=== PATIENT | female | born 1975 | race Caucasian/White ===

== ENCOUNTER 2019-04-05 15:09 | Emergency (ER) | payer SELFPAY | END 2019-04-05 15:50 | disposition left against medical advice (07) | LOC: ER 15:42 | PROVIDERS: Emergency Provider Nurse Practitioner Family; Family Provider Nurse Practitioner; PCP Nurse Practitioner | DX: Z53.21 Procedure and treatment not carried out due to patient leaving prior to being seen by health care provider (principal) | CPT/HCPCS: 87804; 99281 ==

== ENCOUNTER 2019-10-21 15:03 | Inpatient (IN) | payer SELFPAY ==
[2019-10-21 15:18] VITALS: BP 212/129; PULSE 87; RESP 18; TEMP 36.9; O2SAT 98; BMI 26.5
--- NOTE | 2019-10-21 15:29 | ECG_ITS ---
[facility] Test Date: 2019-10-21 Pat Name: Leann Monte Department: Room: Gender: Female [employer]: : [id number] Requested By: Mesfin Basurto Order Number: [id number] Nelly MD: Ella Ozuna M.D. Measurements Intervals [place] Rate: 83 P: 65 PA: 137 QRS: 53 QRSD: 94 T: 228 QT: 393 QTc: 462 Interpretive Statements SINUS RHYTHM POSSIBLE LEFT ATRIAL ENLARGEMENT [-0.1mV P WAVE IN V1/V2] ST DEVIATION AND MODERATE T-WAVE ABNORMALITY, CONSIDER ANTEROLATERAL ISCHEMIA [-0.1+ mV T WAVE IN V3-V6] ST DEVIATION AND MODERATE T-WAVE ABNORMALITY, CONSIDER INFERIOR ISCHEMIA [-0.1+ mV T WAVE IN II/aVF] Compared to ECG 12/16/2018 19:38:38 Possible ischemia now present Short PA interval no longer present T-wave abnormality still present Electronically Signed On 10-22-2019 18:10:42 CDT by Ella Ozuna M.D. [email or web address]
--- NOTE | 2019-10-21 15:29 | XRR_ITS ---
PROCEDURE INFORMATION: Exam: XR Chest, 1 View Exam date and time: 10/21/2019 3:30 PM Age: 44 years old Clinical indication: Chest pain; Type not specified; Additional info: Cp TECHNIQUE: Imaging protocol: XR of the chest Views: 1 view. COMPARISON: CR Chest 2 views* [id number] 12/19/2013 11:38 AM FINDINGS: Lungs: There is new/increased interstitial prominence compatible with bronchitis, viral pneumonitis or mild interstitial edema. No lobar consolidation. Pleural space: Unremarkable. No pleural effusion. No pneumothorax. Heart/Mediastinum: There is borderline cardiomegaly. Bones/joints: No acute abnormality. XR/XR chest 1V portable [id number] IMPRESSION: There is new/increased interstitial prominence compatible with bronchitis, viral pneumonitis or mild interstitial edema.
[2019-10-21 16:01] LABS: Basophils # 0.1 10^3/uL (0.0-0.1); Basophils % 0.5 %; Eosinophils # 0.4 10^3/uL (0.0-0.8); Eosinophils % 4.4 %; Hematocrit 42.5 % (37.0-47.0); Hemoglobin 14.5 g/dL (11.5-15.3); Lymphocytes % 32.7 %; Mean Corpuscular HGB Conc 34.1 g/dL (30.0-36.0); Mean Corpuscular Hemoglobin 31.7 pg (28.0-34.0); Mean Platelet Volume 8.8 fL (7.4-10.4); Monocytes # 0.6 10^3/uL (0.2-0.9); Neutrophils # 5.13 10^3/uL (1.8-7.7); Neutrophils % 56.3 %; Nucleated Red Blood Cells % 0 %; Platelet Count 327 10^3/cmm (130-400); Red Blood Count 4.57 10^6/uL (4.1-5.3); Red Cell Distribution Width 13.8 % (12.1-15.1); White Blood Count 9.1 10^3/uL (4.0-10.0)
--- NOTE | 2019-10-21 16:11 | W.ED.CHESTPA ---
Documented by User: Mesfin Garcia DO 10/24/19 06:09 HPI - Chest Pain General: Chief Complaint: Chest Pain Stated Complaint: cp, arm numbness, mouth tingling Time Seen by Provider: 10/21/19 16:10 History of Present Illness: HPI narrative: 44-year-old female comes in she is complaining of tingling around her mouth and all of her extremities little bit worse on the left she also had some slight chest discomfort not had any cough or shortness of breath the the symptoms are not affected by inspiration. She not had any fever sweats or chills MD complaint: chest heaviness Onset (ago): hour(s) Timing of current episode: episodic Onset: during rest Pain location: left chest Pain radiation: left arm Severity: mild Quality: heaviness Relieving factors: rest Exacerbating factors: stress Associated symptoms: Reports dyspnea, palpitations and sense of impending doom; Deny abdominal pain, fever(s), nausea or vomiting Review of Systems Const: Denies: fever(s), chills, body aches, change in appetite, fatigue or malaise ENMT: Denies: throat pain, ear or mastoid pain, nasal discharge or nasal congestion Card: Reports: palpitations Resp: Reports: dyspnea GI: Denies: abdominal pain, nausea, vomiting, hematemesis, coffee ground emesis, diarrhea, constipation, bloating, hematochezia or melena : Denies: flank pain, difficulty voiding, dysuria, urinary frequency or urinary urgency Skin/Breast: Denies: rash or pruritus PFSH ED PFSH: Medical History Generalized anxiety disorder 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 Hx of nephrolithotomy with removal of calculi Hypertension Hypertensive crisis Major depressive disorder, recurrent, moderate Post-traumatic stress disorder, chronic Surgical History History of removal of ovarian cyst Hx of cholecystectomy Hx of hernia repair Hx of lithotripsy Family History Other Psychiatric illness Social History Smoking and tobacco status: current every day smoker cigarettes Years cigarettes smoked: 25 Number of cigarettes per day: 11-20 Quit status (tobacco): has tried quititng Number of times tried to quit tobacco: 5 Second hand smoke exposure: No Additional social history: Denies regular alcohol use Denies current drug use Physical Exam Const: COMMON NORMALS: no acute distress GENERAL APPEARANCE: cooperative and comfortable ORIENTATION/CONSCIOUSNESS: Yes awake, Yes oriented to person, Yes oriented to place and Yes oriented to time HENMT: COMMON NORMALS: normocephalic, atraumatic and hearing grossly normal bilaterally HEAD & SCALP: normocephalic and atraumatic Eye: COMMON NORMALS: Equal, round and reactive pupils present, EOMs intact bilaterally, conjunctivae normal and no scleral icterus CONJUNCTIVA: Yes conjunctivae normal PUPIL: Yes Equal, round and reactive pupils present Neck/C-Spine: COMMON NORMALS: full ROM, no lymphadenopathy, supple and no JVD Lymph: LYMPHATIC: no lymphadenopathy noted and no lymphedema noted Resp: COMMON NORMALS: normal respiratory effort, No retractions, No use of accessory muscles and clear to auscultation bilaterally AUSCULTATION: clear to auscultation bilaterally Cardio: COMMON NORMALS: no JVD, regular rate, regular rhythm and No murmurs present (Cardio) RATE: regular rate RHYTHM: regular rhythm GI: COMMON NORMALS: Soft to palpation and No hepatosplenomegaly present AUSCULTATION: Yes normoactive bowel sounds PALPATION: Yes Soft to palpation, No Tenderness to palpation present (GI), No Guarding due to palpation present (GI) and Yes No hepatosplenomegaly present Extremity: COMMON NORMALS: normal to inspection, capillary refill normal, no clubbing, cyanosis or edema, no calf tenderness and no pedal edema Neuro: SENSORIUM/ORIENTATION: Yes oriented to person, Yes oriented to place and Yes oriented to time Skin: COMMON NORMALS: no rashes or lesions noted GENERAL SKIN EXAM: no rashes or lesions noted Course Vital Signs: Vital signs: Vital Signs Temperature 98.6 F 10/23/19 12:25 Pulse Rate 70 10/23/19 13:43 Respiratory Rate 18 10/23/19 13:43 Blood Pressure 164/93 10/23/19 13:43 Pulse Oximetry 98 10/23/19 13:43 MDM - Chest Pain MDM Narrative: Medical decision making narrative: Hypertensive crisis with a very low stroke score. Patient care transferred to Dr. Deutsch at change of shift see his notes for final diagnosis and disposition Lab Data: Labs: Lab Results 10/21/19 10/21/19 10/21/19 Range/Units 15:58 15:58 15:58 WBC 9.1 (4.0-10.0) 10^3/ uL RBC 4.57 (4.1-5.3) 10^6/u L Hgb 14.5 (11.5-15.3) g/dL Hct 42.5 (37.0-47.0) % MCV 93.0 (81-99) fL MCH 31.7 (28.0-34.0) pg MCHC 34.1 (30.0-36.0) g/dL RDW 13.8 (12.1-15.1) % Plt Count 327 (130-400) 10^3/c mm MPV 8.8 (7.4-10.4) fL Neut % (Auto) 56.3 % Lymph % (Auto) 32.7 % [place] % (Auto) 6.0 % Eos % (Auto) 4.4 % Baso % (Auto) 0.5 % Neut # (Auto) 5.13 (1.8-7.7) 10^3/u L Lymph # (Auto) 3.0 (0.8-4.8) 10^3/u L [place] # (Auto) 0.6 (0.2-0.9) 10^3/u L Eos # (Auto) 0.4 (0.0-0.8) 10^3/u L Baso # (Auto) 0.1 (0.0-0.1) 10^3/u L Nucleated RBC % (a uto) 0 % Nucleated RBCs # 0.0 /100WBC APTT 33.4 (23.9-36.7) SECO NDS D-Dimer <= 0.27 (0-0.59) ug/mIFE U Specimen Type Sample Site ABG pH (7.35-7.45) ABG pCO2 (35-45) mmHg ABG pO2 (80.0-100.0) mmH g ABG HCO3 (22-26) mmol/L ABG O2 Saturation ABG Base Excess (-2.0-2.0) mmol/ L Jamal Test A-a O2 Gradient (5-10) mmHg Hematocrit (37-47) % Hgb O2 Saturation (95-100) % Carboxyhemoglobin (0.4-20.1) %THgb Methemoglobin (0.4-1.5) % Total Hemoglobin (12-16) g/dL Ionized Calcium (1.1-1.4) mmol/L O2 Delivery Device FiO2 % Investigation Lieutenant ID Sodium 139 (136-145) mmol/L Potassium 2.4 L* (3.5-5.1) mmol/L Chloride 99 (98-107) mmol/L Carbon Dioxide 27 (22-29) mmol/L Anion Gap 15.4 (5-19) BUN 10 (6-20) mg/dL Creatinine 0.8 (0.5-0.9) mg/dL GFR Calculation 77.9 L (90-130) mL/min Glucose 99 (65-115) mg/dL Calculated Osmolal ity 284 L (285-295) mOsm/k g Calcium 8.5 (8.5-10.5) mg/dL Magnesium (1.7-2.3) mg/dL Total Bilirubin 0.4 (0.15-1.2) mg/dL AST 12 (0-32) U/L ALT 11 (0-33) U/L Alkaline Phosphata se 81 (35-105) IU/L Troponin T Gen 5 n g/L (0-10) ng/L Troponin T Baselin e (0-10) ng/L Troponin T 120 Min [place] (0-10) ng/L Delta Troponin T (0-10) ABS# Troponin T Hi Sens 6Hr Troponin T Hi Sens 6Hr Delta NT-Pro-B Natriuret Pep 1376 H (0-125) pg/mL Total Protein 7.0 (6.6-8.7) g/dL Albumin 4.0 (3.5-5.2) g/dL Globulin 3.0 (1.3-4.6) g/dL Lipase 20 (13-60) U/L Urine Color (Yellow) Urine Appearance (CLEAR) Urine pH (5-7) Ur Specific Gravit y (1.005-1.030) Urine Protein (Negative) Urine Glucose (UA) (Normal) Urine Ketones (Negative) Urine Blood (Negative) Urine Nitrate (Negative) Urine Bilirubin (NEGATIVE) Urine Urobilinogen (Negative) mg/dL Ur Leukocyte Jazzy ase (Negative) Urine RBC (0-2) /hpf Urine WBC (0-5) /hpf Ur Squamous Epith Cells (0-5) Amorphous Sediment Urine Bacteria (NONE) Urine Opiates Scre en (Negative) ng/mL Ur Barbiturates Sc reen (Negative) ng/mL Ur Phencyclidine S crn (Negative) ng/mL Ur Amphetamines Sc reen (Negative) ng/mL U Benzodiazepines Scrn (Negative) ng/mL Urine Cocaine Scre en (Negative) ng/mL U Marijuana (THC) Screen (Negative) ng/mL 10/21/19 10/21/19 10/21/19 Range/Units 15:58 15:58 16:31 WBC (4.0-10.0) 10^3/ uL RBC (4.1-5.3) 10^6/u L Hgb (11.5-15.3) g/dL Hct (37.0-47.0) % MCV (81-99) fL MCH (28.0-34.0) pg MCHC (30.0-36.0) g/dL RDW (12.1-15.1) % Plt Count (130-400) 10^3/c mm MPV (7.4-10.4) fL Neut % (Auto) % Lymph % (Auto) % [place] % (Auto) % Eos % (Auto) % Baso % (Auto) % Neut # (Auto) (1.8-7.7) 10^3/u L Lymph # (Auto) (0.8-4.8) 10^3/u L [place] # (Auto) (0.2-0.9) 10^3/u L Eos # (Auto) (0.0-0.8) 10^3/u L Baso # (Auto) (0.0-0.1) 10^3/u L Nucleated RBC % (a uto) % Nucleated RBCs # /100WBC APTT (23.9-36.7) SECO NDS D-Dimer (0-0.59) ug/mIFE U Specimen Type Arterial Sample Site Brachial, left ABG pH 7.52 H (7.35-7.45) ABG pCO2 38.9 (35-45) mmHg ABG pO2 65.2 L (80.0-100.0) mmH g ABG HCO3 31.7 H (22-26) mmol/L ABG O2 Saturation 95.3 ABG Base Excess 8.2 H (-2.0-2.0) mmol/ L Jamal Test N/a A-a O2 Gradient 4.6 L (5-10) mmHg Hematocrit 44.6 (37-47) % Hgb O2 Saturation 88.9 L (95-100) % Carboxyhemoglobin 6.4 (0.4-20.1) %THgb Methemoglobin 0.3 L (0.4-1.5) % Total Hemoglobin 14.6 (12-16) g/dL Ionized Calcium 1.1 (1.1-1.4) mmol/L O2 Delivery Device Room air FiO2 21.0 % Investigation Lieutenant ID glc Sodium 142.0 (136-145) mmol/L Potassium 2.3 L (3.5-5.1) mmol/L Chloride (98-107) mmol/L Carbon Dioxide (22-29) mmol/L Anion Gap (5-19) BUN (6-20) mg/dL Creatinine (0.5-0.9) mg/dL GFR Calculation (90-130) mL/min Glucose 101.0 (65-115) mg/dL Calculated Osmolal ity (285-295) mOsm/k g Calcium (8.5-10.5) mg/dL Magnesium 2.0 (1.7-2.3) mg/dL Total Bilirubin (0.15-1.2) mg/dL AST (0-32) U/L ALT (0-33) U/L Alkaline Phosphata se (35-105) IU/L Troponin T Gen 5 n g/L (0-10) ng/L Troponin T Baselin e 7 (0-10) ng/L Troponin T 120 Min [place] (0-10) ng/L Delta Troponin T (0-10) ABS# Troponin T Hi Sens 6Hr Troponin T Hi Sens 6Hr Delta NT-Pro-B Natriuret Pep (0-125) pg/mL Total Protein (6.6-8.7) g/dL Albumin (3.5-5.2) g/dL Globulin (1.3-4.6) g/dL Lipase (13-60) U/L Urine Color (Yellow) Urine Appearance (CLEAR) Urine pH (5-7) Ur Specific Gravit y (1.005-1.030) Urine Protein (Negative) Urine Glucose (UA) (Normal) Urine Ketones (Negative) Urine Blood (Negative) Urine Nitrate (Negative) Urine Bilirubin (NEGATIVE) Urine Urobilinogen (Negative) mg/dL Ur Leukocyte Jazzy ase (Negative) Urine RBC (0-2) /hpf Urine WBC (0-5) /hpf Ur Squamous Epith Cells (0-5) Amorphous Sediment Urine Bacteria (NONE) Urine Opiates Scre en (Negative) ng/mL Ur Barbiturates Sc reen (Negative) ng/mL Ur Phencyclidine S crn (Negative) ng/mL Ur Amphetamines Sc reen (Negative) ng/mL U Benzodiazepines Scrn (Negative) ng/mL Urine Cocaine Scre en (Negative) ng/mL U Marijuana (THC) Screen (Negative) ng/mL 10/21/19 10/21/19 10/21/19 Range/Units 18:28 18:28 21:50 WBC (4.0-10.0) 10^3/ uL RBC (4.1-5.3) 10^6/u L Hgb (11.5-15.3) g/dL Hct (37.0-47.0) % MCV (81-99) fL MCH (28.0-34.0) pg MCHC (30.0-36.0) g/dL RDW (12.1-15.1) % Plt Count (130-400) 10^3/c mm MPV (7.4-10.4) fL Neut % (Auto) % Lymph % (Auto) % [place] % (Auto) % Eos % (Auto) % Baso % (Auto) % Neut # (Auto) (1.8-7.7) 10^3/u L Lymph # (Auto) (0.8-4.8) 10^3/u L [place] # (Auto) (0.2-0.9) 10^3/u L Eos # (Auto) (0.0-0.8) 10^3/u L Baso # (Auto) (0.0-0.1) 10^3/u L Nucleated RBC % (a uto) % Nucleated RBCs # /100WBC APTT (23.9-36.7) SECO NDS D-Dimer (0-0.59) ug/mIFE U Specimen Type Sample Site ABG pH (7.35-7.45) ABG pCO2 (35-45) mmHg ABG pO2 (80.0-100.0) mmH g ABG HCO3 (22-26) mmol/L ABG O2 Saturation ABG Base Excess (-2.0-2.0) mmol/ L Jamal Test A-a O2 Gradient (5-10) mmHg Hematocrit (37-47) % Hgb O2 Saturation (95-100) % Carboxyhemoglobin (0.4-20.1) %THgb Methemoglobin (0.4-1.5) % Total Hemoglobin (12-16) g/dL Ionized Calcium (1.1-1.4) mmol/L O2 Delivery Device FiO2 % Investigation Lieutenant ID Sodium (136-145) mmol/L Potassium 3.1 L (3.5-5.1) mmol/L Chloride (98-107) mmol/L Carbon Dioxide (22-29) mmol/L Anion Gap (5-19) BUN (6-20) mg/dL Creatinine (0.5-0.9) mg/dL GFR Calculation (90-130) mL/min Glucose (65-115) mg/dL Calculated Osmolal ity (285-295) mOsm/k g Calcium (8.5-10.5) mg/dL Magnesium (1.7-2.3) mg/dL Total Bilirubin (0.15-1.2) mg/dL AST (0-32) U/L ALT (0-33) U/L Alkaline Phosphata se (35-105) IU/L Troponin T Gen 5 n g/L (0-10) ng/L Troponin T Baselin e (0-10) ng/L Troponin T 120 Min [place] 8.32 (0-10) ng/L Delta Troponin T 1.32 (0-10) ABS# Troponin T Hi Sens 6Hr Cancelled Troponin T Hi Sens 6Hr Delta Cancelled NT-Pro-B Natriuret Pep (0-125) pg/mL Total Protein (6.6-8.7) g/dL Albumin (3.5-5.2) g/dL Globulin (1.3-4.6) g/dL Lipase (13-60) U/L Urine Color (Yellow) Urine Appearance (CLEAR) Urine pH (5-7) Ur Specific Gravit y (1.005-1.030) Urine Protein (Negative) Urine Glucose (UA) (Normal) Urine Ketones (Negative) Urine Blood (Negative) Urine Nitrate (Negative) Urine Bilirubin (NEGATIVE) Urine Urobilinogen (Negative) mg/dL Ur Leukocyte Jazzy ase (Negative) Urine RBC (0-2) /hpf Urine WBC (0-5) /hpf Ur Squamous Epith Cells (0-5) Amorphous Sediment Urine Bacteria (NONE) Urine Opiates Scre en (Negative) ng/mL Ur Barbiturates Sc reen (Negative) ng/mL Ur Phencyclidine S crn (Negative) ng/mL Ur Amphetamines Sc reen (Negative) ng/mL U Benzodiazepines Scrn (Negative) ng/mL Urine Cocaine Scre en (Negative) ng/mL U Marijuana (THC) Screen (Negative) ng/mL 10/21/19 10/21/19 10/22/19 Range/Units 23:48 23:48 01:25 WBC (4.0-10.0) 10^3/ uL RBC (4.1-5.3) 10^6/u L Hgb (11.5-15.3) g/dL Hct (37.0-47.0) % MCV (81-99) fL MCH (28.0-34.0) pg MCHC (30.0-36.0) g/dL RDW (12.1-15.1) % Plt Count (130-400) 10^3/c mm MPV (7.4-10.4) fL Neut % (Auto) % Lymph % (Auto) % [place] % (Auto) % Eos % (Auto) % Baso % (Auto) % Neut # (Auto) (1.8-7.7) 10^3/u L Lymph # (Auto) (0.8-4.8) 10^3/u L [place] # (Auto) (0.2-0.9) 10^3/u L Eos # (Auto) (0.0-0.8) 10^3/u L Baso # (Auto) (0.0-0.1) 10^3/u L Nucleated RBC % (a uto) % Nucleated RBCs # /100WBC APTT (23.9-36.7) SECO NDS D-Dimer (0-0.59) ug/mIFE U Specimen Type Sample Site ABG pH (7.35-7.45) ABG pCO2 (35-45) mmHg ABG pO2 (80.0-100.0) mmH g ABG HCO3 (22-26) mmol/L ABG O2 Saturation ABG Base Excess (-2.0-2.0) mmol/ L Jamal Test A-a O2 Gradient (5-10) mmHg Hematocrit (37-47) % Hgb O2 Saturation (95-100) % Carboxyhemoglobin (0.4-20.1) %THgb Methemoglobin (0.4-1.5) % Total Hemoglobin (12-16) g/dL Ionized Calcium (1.1-1.4) mmol/L O2 Delivery Device FiO2 % Investigation Lieutenant ID Sodium (136-145) mmol/L Potassium (3.5-5.1) mmol/L Chloride (98-107) mmol/L Carbon Dioxide (22-29) mmol/L Anion Gap (5-19) BUN (6-20) mg/dL Creatinine (0.5-0.9) mg/dL GFR Calculation (90-130) mL/min Glucose (65-115) mg/dL Calculated Osmolal ity (285-295) mOsm/k g Calcium (8.5-10.5) mg/dL Magnesium (1.7-2.3) mg/dL Total Bilirubin (0.15-1.2) mg/dL AST (0-32) U/L ALT (0-33) U/L Alkaline Phosphata se (35-105) IU/L Troponin T Gen 5 n g/L 6 (0-10) ng/L Troponin T Baselin e (0-10) ng/L Troponin T 120 Min [place] Cancelled (0-10) ng/L Delta Troponin T Cancelled (0-10) ABS# Troponin T Hi Sens 6Hr Troponin T Hi Sens 6Hr Delta NT-Pro-B Natriuret Pep (0-125) pg/mL Total Protein (6.6-8.7) g/dL Albumin (3.5-5.2) g/dL Globulin (1.3-4.6) g/dL Lipase (13-60) U/L Urine Color (Yellow) Urine Appearance (CLEAR) Urine pH (5-7) Ur Specific Gravit y (1.005-1.030) Urine Protein (Negative) Urine Glucose (UA) (Normal) Urine Ketones (Negative) Urine Blood (Negative) Urine Nitrate (Negative) Urine Bilirubin (NEGATIVE) Urine Urobilinogen (Negative) mg/dL Ur Leukocyte Jazzy ase (Negative) Urine RBC (0-2) /hpf Urine WBC (0-5) /hpf Ur Squamous Epith Cells (0-5) Amorphous Sediment Urine Bacteria (NONE) Urine Opiates Scre en Negative (Negative) ng/mL Ur Barbiturates Sc reen Negative (Negative) ng/mL Ur Phencyclidine S crn Negative (Negative) ng/mL Ur Amphetamines Sc reen Negative (Negative) ng/mL U Benzodiazepines Scrn Positive H (Negative) ng/mL Urine Cocaine Scre en Negative (Negative) ng/mL U Marijuana (THC) Screen Positive H (Negative) ng/mL 10/22/19 Range/Units 01:25 WBC (4.0-10.0) 10^3/ uL RBC (4.1-5.3) 10^6/u L Hgb (11.5-15.3) g/dL Hct (37.0-47.0) % MCV (81-99) fL MCH (28.0-34.0) pg MCHC (30.0-36.0) g/dL RDW (12.1-15.1) % Plt Count (130-400) 10^3/c mm MPV (7.4-10.4) fL Neut % (Auto) % Lymph % (Auto) % [place] % (Auto) % Eos % (Auto) % Baso % (Auto) % Neut # (Auto) (1.8-7.7) 10^3/u L Lymph # (Auto) (0.8-4.8) 10^3/u L [place] # (Auto) (0.2-0.9) 10^3/u L Eos # (Auto) (0.0-0.8) 10^3/u L Baso # (Auto) (0.0-0.1) 10^3/u L Nucleated RBC % (a uto) % Nucleated RBCs # /100WBC APTT (23.9-36.7) SECO NDS D-Dimer (0-0.59) ug/mIFE U Specimen Type Sample Site ABG pH (7.35-7.45) ABG pCO2 (35-45) mmHg ABG pO2 (80.0-100.0) mmH g ABG HCO3 (22-26) mmol/L ABG O2 Saturation ABG Base Excess (-2.0-2.0) mmol/ L Jamal Test A-a O2 Gradient (5-10) mmHg Hematocrit (37-47) % Hgb O2 Saturation (95-100) % Carboxyhemoglobin (0.4-20.1) %THgb Methemoglobin (0.4-1.5) % Total Hemoglobin (12-16) g/dL Ionized Calcium (1.1-1.4) mmol/L O2 Delivery Device FiO2 % Investigation Lieutenant ID Sodium (136-145) mmol/L Potassium (3.5-5.1) mmol/L Chloride (98-107) mmol/L Carbon Dioxide (22-29) mmol/L Anion Gap (5-19) BUN (6-20) mg/dL Creatinine (0.5-0.9) mg/dL GFR Calculation (90-130) mL/min Glucose (65-115) mg/dL Calculated Osmolal ity (285-295) mOsm/k g Calcium (8.5-10.5) mg/dL Magnesium (1.7-2.3) mg/dL Total Bilirubin (0.15-1.2) mg/dL AST (0-32) U/L ALT (0-33) U/L Alkaline Phosphata se (35-105) IU/L Troponin T Gen 5 n g/L (0-10) ng/L Troponin T Baselin e (0-10) ng/L Troponin T 120 Min [place] (0-10) ng/L Delta Troponin T (0-10) ABS# Troponin T Hi Sens 6Hr Troponin T Hi Sens 6Hr Delta NT-Pro-B Natriuret Pep (0-125) pg/mL Total Protein (6.6-8.7) g/dL Albumin (3.5-5.2) g/dL Globulin (1.3-4.6) g/dL Lipase (13-60) U/L Urine Color Yellow (Yellow) Urine Appearance Sl cloudy A (CLEAR) Urine pH 8 H (5-7) Ur Specific Gravit y 1.010 (1.005-1.030) Urine Protein Neg (Negative) Urine Glucose (UA) Norm (Normal) Urine Ketones 1+ H (Negative) Urine Blood Neg (Negative) Urine Nitrate Negative (Negative) Urine Bilirubin Neg (NEGATIVE) Urine Urobilinogen Norm (Negative) mg/dL Ur Leukocyte Jazzy ase Negative (Negative) Urine RBC None (0-2) /hpf Urine WBC None (0-5) /hpf Ur Squamous Epith Cells 5-10 H (0-5) Amorphous Sediment Trace Urine Bacteria Trace (NONE) Urine Opiates Scre en (Negative) ng/mL Ur Barbiturates Sc reen (Negative) ng/mL Ur Phencyclidine S crn (Negative) ng/mL Ur Amphetamines Sc reen (Negative) ng/mL U Benzodiazepines Scrn (Negative) ng/mL Urine Cocaine Scre en (Negative) ng/mL U Marijuana (THC) Screen (Negative) ng/mL Discharge Plan Discharge Patient Disposition: Admitted As Inpatient Admit Provider: Octavia Mendiola Clinical Impression: Hypertensive crisis Condition: Stable Referrals: [facility] [Other] - 4-7 days Glen Mcfadden MD [Referring] - 2 weeks (HTN) Discharge Diet: Cardiac Discharge Activity: Increase activity as tolerated Patient Instructions: Lisinopril (By mouth), Albuterol (By breathing), Amlodipine (By mouth), Atorvastatin (By mouth) Additional Instructions: Please measure your blood pressure at home 3 times daily, record values. If blood pressure is elevated despite taking your scheduled medications, take a dose of 10 mg amlodipine if blood pressure is more than 180 systolic or more than 100 diastolic. If blood pressure remains persistently high, above 180/100, despite taking medications, please seek medical attention without delay. Please bring your blood pressure log to your primary care provider. Please see your primary care provider within a week, and have them follow-up with your potassium level. Referral is given to a kidney/blood pressure specialist for additional assessment due to high blood pressures and low potassium. As you are aware clonidine can cause rebound hypertension (very elevated blood pressure, higher than usual hypertension) if it is rapidly discontinued. If you may have difficulties obtaining this medication, it may be better to use something else group home if there is a risk of running out of the medicine. If there is this risk, please work with your primary care doctor to taper off clonidine and switch to something else. Discharge Date/Time: 10/22/19 04:23 Coding Level of Care Code ED [employer] Department Manager for [place] Fwd Exam Comprehensive NIH stroke score NIHSS Level Of Consciousness - 1a: 0 Level Of Consciousness Questions - 1b: Both Correct Level Of Consciousness Commands - 1c: Both Correct Best Gaze - 2: Normal Visual Webb - 3: No Visual Loss Facial Palsy - 4: Normal Motor Arm Right - 5: No Drift Motor Arm Left - 5: No Drift Motor Leg Right - 6: No Drift Motor Leg Left - 6: No Drift Limb Ataxia - 7: Absent Sensory - 8: Mild To Moderate Loss Best Language - 9: No Aphasia Dysarthia - 10: Normal Extinction And Inattention - 11: 0 Score Total Score: 1 Documented by User: Paul Deutsch DO 10/22/19 04:37 HPI - Chest Pain General: Chief Complaint: Chest Pain Stated Complaint: cp, arm numbness, mouth tingling Time Seen by Provider: 10/21/19 16:10 PFSH ED PFSH: Medical History Generalized anxiety disorder 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 Hx of nephrolithotomy with removal of calculi Hypertension Hypertensive crisis Major depressive disorder, recurrent, moderate Post-traumatic stress disorder, chronic Surgical History History of removal of ovarian cyst Hx of cholecystectomy Hx of hernia repair Hx of lithotripsy Family History Other Psychiatric illness Social History Smoking and tobacco status: current every day smoker cigarettes Years cigarettes smoked: 25 Number of cigarettes per day: 11-20 Quit status (tobacco): has tried quititng Number of times tried to quit tobacco: 5 Second hand smoke exposure: No Additional social history: Denies regular alcohol use Denies current drug use Course Vital Signs: Vital signs: Vital Signs Temperature 98.6 F 10/23/19 12:25 Pulse Rate 70 10/23/19 13:43 Respiratory Rate 18 10/23/19 13:43 Blood Pressure 164/93 10/23/19 13:43 Pulse Oximetry 98 10/23/19 13:43 MDM - Chest Pain MDM Narrative: Medical decision making narrative: 44-year-old female checked out to me by Dr. Garcia at shift change. This patient had complained of chest discomfort radiating into her left arm on arrival. Her blood pressure was quite high. She had multiple doses of hypertensive medication. These had minimal effect nitroglycerin paste was applied with little effect as well. Finally, nitroglycerin drip was started, with some improvement. Blood pressure continued to spike on and off throughout her ER stay. She began to complain of worsening chest discomfort. Her troponin actually went down. Because of concern of chest discomfort radiating into her back, CTA was completed and is negative for dissection or PE. Her symptoms seem to improve greatly with improvement in her blood pressure. She experienced several episodes of vomiting, when her pressure was high as well. Discussed with hospitalist. She will go to the ICU for hypertensive crisis. Lab Data: Labs: Lab Results 10/21/19 10/21/19 10/21/19 Range/Units 15:58 15:58 15:58 WBC 9.1 (4.0-10.0) 10^3/ uL RBC 4.57 (4.1-5.3) 10^6/u L Hgb 14.5 (11.5-15.3) g/dL Hct 42.5 (37.0-47.0) % MCV 93.0 (81-99) fL MCH 31.7 (28.0-34.0) pg MCHC 34.1 (30.0-36.0) g/dL RDW 13.8 (12.1-15.1) % Plt Count 327 (130-400) 10^3/c mm MPV 8.8 (7.4-10.4) fL Neut % (Auto) 56.3 % Lymph % (Auto) 32.7 % [place] % (Auto) 6.0 % Eos % (Auto) 4.4 % Baso % (Auto) 0.5 % Neut # (Auto) 5.13 (1.8-7.7) 10^3/u L Lymph # (Auto) 3.0 (0.8-4.8) 10^3/u L [place] # (Auto) 0.6 (0.2-0.9) 10^3/u L Eos # (Auto) 0.4 (0.0-0.8) 10^3/u L Baso # (Auto) 0.1 (0.0-0.1) 10^3/u L Nucleated RBC % (a uto) 0 % Nucleated RBCs # 0.0 /100WBC APTT 33.4 (23.9-36.7) SECO NDS D-Dimer <= 0.27 (0-0.59) ug/mIFE U Specimen Type Sample Site ABG pH (7.35-7.45) ABG pCO2 (35-45) mmHg ABG pO2 (80.0-100.0) mmH g ABG HCO3 (22-26) mmol/L ABG O2 Saturation ABG Base Excess (-2.0-2.0) mmol/ L Jamal Test A-a O2 Gradient (5-10) mmHg Hematocrit (37-47) % Hgb O2 Saturation (95-100) % Carboxyhemoglobin (0.4-20.1) %THgb Methemoglobin (0.4-1.5) % Total Hemoglobin (12-16) g/dL Ionized Calcium (1.1-1.4) mmol/L O2 Delivery Device FiO2 % Investigation Lieutenant ID Sodium 139 (136-145) mmol/L Potassium 2.4 L* (3.5-5.1) mmol/L Chloride 99 (98-107) mmol/L Carbon Dioxide 27 (22-29) mmol/L Anion Gap 15.4 (5-19) BUN 10 (6-20) mg/dL Creatinine 0.8 (0.5-0.9) mg/dL GFR Calculation 77.9 L (90-130) mL/min Glucose 99 (65-115) mg/dL Calculated Osmolal ity 284 L (285-295) mOsm/k g Calcium 8.5 (8.5-10.5) mg/dL Magnesium (1.7-2.3) mg/dL Total Bilirubin 0.4 (0.15-1.2) mg/dL AST 12 (0-32) U/L ALT 11 (0-33) U/L Alkaline Phosphata se 81 (35-105) IU/L Troponin T Gen 5 n g/L (0-10) ng/L Troponin T Baselin e (0-10) ng/L Troponin T 120 Min [place] (0-10) ng/L Delta Troponin T (0-10) ABS# Troponin T Hi Sens 6Hr Troponin T Hi Sens 6Hr Delta NT-Pro-B Natriuret Pep 1376 H (0-125) pg/mL Total Protein 7.0 (6.6-8.7) g/dL Albumin 4.0 (3.5-5.2) g/dL Globulin 3.0 (1.3-4.6) g/dL Lipase 20 (13-60) U/L Urine Color (Yellow) Urine Appearance (CLEAR) Urine pH (5-7) Ur Specific Gravit y (1.005-1.030) Urine Protein (Negative) Urine Glucose (UA) (Normal) Urine Ketones (Negative) Urine Blood (Negative) Urine Nitrate (Negative) Urine Bilirubin (NEGATIVE) Urine Urobilinogen (Negative) mg/dL Ur Leukocyte Jazzy ase (Negative) Urine RBC (0-2) /hpf Urine WBC (0-5) /hpf Ur Squamous Epith Cells (0-5) Amorphous Sediment Urine Bacteria (NONE) Urine Opiates Scre en (Negative) ng/mL Ur Barbiturates Sc reen (Negative) ng/mL Ur Phencyclidine S crn (Negative) ng/mL Ur Amphetamines Sc reen (Negative) ng/mL U Benzodiazepines Scrn (Negative) ng/mL Urine Cocaine Scre en (Negative) ng/mL U Marijuana (THC) Screen (Negative) ng/mL 10/21/19 10/21/19 10/21/19 Range/Units 15:58 15:58 16:31 WBC (4.0-10.0) 10^3/ uL RBC (4.1-5.3) 10^6/u L Hgb (11.5-15.3) g/dL Hct (37.0-47.0) % MCV (81-99) fL MCH (28.0-34.0) pg MCHC (30.0-36.0) g/dL RDW (12.1-15.1) % Plt Count (130-400) 10^3/c mm MPV (7.4-10.4) fL Neut % (Auto) % Lymph % (Auto) % [place] % (Auto) % Eos % (Auto) % Baso % (Auto) % Neut # (Auto) (1.8-7.7) 10^3/u L Lymph # (Auto) (0.8-4.8) 10^3/u L [place] # (Auto) (0.2-0.9) 10^3/u L Eos # (Auto) (0.0-0.8) 10^3/u L Baso # (Auto) (0.0-0.1) 10^3/u L Nucleated RBC % (a uto) % Nucleated RBCs # /100WBC APTT (23.9-36.7) SECO NDS D-Dimer (0-0.59) ug/mIFE U Specimen Type Arterial Sample Site Brachial, left ABG pH 7.52 H (7.35-7.45) ABG pCO2 38.9 (35-45) mmHg ABG pO2 65.2 L (80.0-100.0) mmH g ABG HCO3 31.7 H (22-26) mmol/L ABG O2 Saturation 95.3 ABG Base Excess 8.2 H (-2.0-2.0) mmol/ L Jamal Test N/a A-a O2 Gradient 4.6 L (5-10) mmHg Hematocrit 44.6 (37-47) % Hgb O2 Saturation 88.9 L (95-100) % Carboxyhemoglobin 6.4 (0.4-20.1) %THgb Methemoglobin 0.3 L (0.4-1.5) % Total Hemoglobin 14.6 (12-16) g/dL Ionized Calcium 1.1 (1.1-1.4) mmol/L O2 Delivery Device Room air FiO2 21.0 % Investigation Lieutenant ID glc Sodium 142.0 (136-145) mmol/L Potassium 2.3 L (3.5-5.1) mmol/L Chloride (98-107) mmol/L Carbon Dioxide (22-29) mmol/L Anion Gap (5-19) BUN (6-20) mg/dL Creatinine (0.5-0.9) mg/dL GFR Calculation (90-130) mL/min Glucose 101.0 (65-115) mg/dL Calculated Osmolal ity (285-295) mOsm/k g Calcium (8.5-10.5) mg/dL Magnesium 2.0 (1.7-2.3) mg/dL Total Bilirubin (0.15-1.2) mg/dL AST (0-32) U/L ALT (0-33) U/L Alkaline Phosphata se (35-105) IU/L Troponin T Gen 5 n g/L (0-10) ng/L Troponin T Baselin e 7 (0-10) ng/L Troponin T 120 Min [place] (0-10) ng/L Delta Troponin T (0-10) ABS# Troponin T Hi Sens 6Hr Troponin T Hi Sens 6Hr Delta NT-Pro-B Natriuret Pep (0-125) pg/mL Total Protein (6.6-8.7) g/dL Albumin (3.5-5.2) g/dL Globulin (1.3-4.6) g/dL Lipase (13-60) U/L Urine Color (Yellow) Urine Appearance (CLEAR) Urine pH (5-7) Ur Specific Gravit y (1.005-1.030) Urine Protein (Negative) Urine Glucose (UA) (Normal) Urine Ketones (Negative) Urine Blood (Negative) Urine Nitrate (Negative) Urine Bilirubin (NEGATIVE) Urine Urobilinogen (Negative) mg/dL Ur Leukocyte Jazzy ase (Negative) Urine RBC (0-2) /hpf Urine WBC (0-5) /hpf Ur Squamous Epith Cells (0-5) Amorphous Sediment Urine Bacteria (NONE) Urine Opiates Scre en (Negative) ng/mL Ur Barbiturates Sc reen (Negative) ng/mL Ur Phencyclidine S crn (Negative) ng/mL Ur Amphetamines Sc reen (Negative) ng/mL U Benzodiazepines Scrn (Negative) ng/mL Urine Cocaine Scre en (Negative) ng/mL U Marijuana (THC) Screen (Negative) ng/mL 10/21/19 10/21/19 10/21/19 Range/Units 18:28 18:28 21:50 WBC (4.0-10.0) 10^3/ uL RBC (4.1-5.3) 10^6/u L Hgb (11.5-15.3) g/dL Hct (37.0-47.0) % MCV (81-99) fL MCH (28.0-34.0) pg MCHC (30.0-36.0) g/dL RDW (12.1-15.1) % Plt Count (130-400) 10^3/c mm MPV (7.4-10.4) fL Neut % (Auto) % Lymph % (Auto) % [place] % (Auto) % Eos % (Auto) % Baso % (Auto) % Neut # (Auto) (1.8-7.7) 10^3/u L Lymph # (Auto) (0.8-4.8) 10^3/u L [place] # (Auto) (0.2-0.9) 10^3/u L Eos # (Auto) (0.0-0.8) 10^3/u L Baso # (Auto) (0.0-0.1) 10^3/u L Nucleated RBC % (a uto) % Nucleated RBCs # /100WBC APTT (23.9-36.7) SECO NDS D-Dimer (0-0.59) ug/mIFE U Specimen Type Sample Site ABG pH (7.35-7.45) ABG pCO2 (35-45) mmHg ABG pO2 (80.0-100.0) mmH g ABG HCO3 (22-26) mmol/L ABG O2 Saturation ABG Base Excess (-2.0-2.0) mmol/ L Jamal Test A-a O2 Gradient (5-10) mmHg Hematocrit (37-47) % Hgb O2 Saturation (95-100) % Carboxyhemoglobin (0.4-20.1) %THgb Methemoglobin (0.4-1.5) % Total Hemoglobin (12-16) g/dL Ionized Calcium (1.1-1.4) mmol/L O2 Delivery Device FiO2 % Investigation Lieutenant ID Sodium (136-145) mmol/L Potassium 3.1 L (3.5-5.1) mmol/L Chloride (98-107) mmol/L Carbon Dioxide (22-29) mmol/L Anion Gap (5-19) BUN (6-20) mg/dL Creatinine (0.5-0.9) mg/dL GFR Calculation (90-130) mL/min Glucose (65-115) mg/dL Calculated Osmolal ity (285-295) mOsm/k g Calcium (8.5-10.5) mg/dL Magnesium (1.7-2.3) mg/dL Total Bilirubin (0.15-1.2) mg/dL AST (0-32) U/L ALT (0-33) U/L Alkaline Phosphata se (35-105) IU/L Troponin T Gen 5 n g/L (0-10) ng/L Troponin T Baselin e (0-10) ng/L Troponin T 120 Min skull [place] 8.32 (0-10) ng/L Delta Troponin T 1.32 (0-10) ABS# Troponin T Hi Sens 6Hr Cancelled Troponin T Hi Sens 6Hr Delta Cancelled NT-Pro-B Natriuret Pep (0-125) pg/mL Total Protein (6.6-8.7) g/dL Albumin (3.5-5.2) g/dL Globulin (1.3-4.6) g/dL Lipase (13-60) U/L Urine Color (Yellow) Urine Appearance (CLEAR) Urine pH (5-7) Ur Specific Gravit y (1.005-1.030) Urine Protein (Negative) Urine Glucose (UA) (Normal) Urine Ketones (Negative) Urine Blood (Negative) Urine Nitrate (Negative) Urine Bilirubin (NEGATIVE) Urine Urobilinogen (Negative) mg/dL Ur Leukocyte Jazzy ase (Negative) Urine RBC (0-2) /hpf Urine WBC (0-5) /hpf Ur Squamous Epith Cells (0-5) Amorphous Sediment Urine Bacteria (NONE) Urine Opiates Scre en (Negative) ng/mL Ur Barbiturates Sc reen (Negative) ng/mL Ur Phencyclidine S crn (Negative) ng/mL Ur Amphetamines Sc reen (Negative) ng/mL U Benzodiazepines Scrn (Negative) ng/mL Urine Cocaine Scre en (Negative) ng/mL U Marijuana (THC) Screen (Negative) ng/mL 0810/21/19 10/22/19 Range/Units 23:48 23:48 01:25 WBC (4.0-10.0) 10^3/ uL RBC (4.1-5.3) 10^6/u L Hgb (11.5-15.3) g/dL Hct (37.0-47.0) % MCV (81-99) fL MCH (28.0-34.0) pg MCHC (30.0-36.0) g/dL RDW (12.1-15.1) % Plt Count (130-400) 10^3/c mm MPV (7.4-10.4) fL Neut % (Auto) % Lymph % (Auto) % [place] % (Auto) % Eos % (Auto) % Baso % (Auto) % Neut # (Auto) (1.8-7.7) 10^3/u L Lymph # (Auto) (0.8-4.8) 10^3/u L [place] # (Auto) (0.2-0.9) 10^3/u L Eos # (Auto) (0.0-0.8) 10^3/u L Baso # (Auto) (0.0-0.1) 10^3/u L Nucleated RBC % (a uto) % Nucleated RBCs # /100WBC APTT (23.9-36.7) SECO NDS D-Dimer (0-0.59) ug/mIFE U Specimen Type Sample Site ABG pH (7.35-7.45) ABG pCO2 (35-45) mmHg ABG pO2 (80.0-100.0) mmH g ABG HCO3 (22-26) mmol/L ABG O2 Saturation ABG Base Excess (-2.0-2.0) mmol/ L Jamal Test A-a O2 Gradient (5-10) mmHg Hematocrit (37-47) % Hgb O2 Saturation (95-100) % Carboxyhemoglobin (0.4-20.1) %THgb Methemoglobin (0.4-1.5) % Total Hemoglobin (12-16) g/dL Ionized Calcium (1.1-1.4) mmol/L O2 Delivery Device FiO2 % Investigation Lieutenant ID Sodium (136-145) mmol/L Potassium (3.5-5.1) mmol/L Chloride (98-107) mmol/L Carbon Dioxide (22-29) mmol/L Anion Gap (5-19) BUN (6-20) mg/dL Creatinine (0.5-0.9) mg/dL GFR Calculation (90-130) mL/min Glucose (65-115) mg/dL Calculated Osmolal ity (285-295) mOsm/k g Calcium (8.5-10.5) mg/dL Magnesium (1.7-2.3) mg/dL Total Bilirubin (0.15-1.2) mg/dL AST (0-32) U/L ALT (0-33) U/L Alkaline Phosphata se (35-105) IU/L Troponin T Gen 5 n g/L 6 (0-10) ng/L Troponin T Baselin e (0-10) ng/L Troponin T 120 Min [place] Cancelled (0-10) ng/L Delta Troponin T Cancelled (0-10) ABS# Troponin T Hi Sens 6Hr Troponin T Hi Sens 6Hr Delta NT-Pro-B Natriuret Pep (0-125) pg/mL Total Protein (6.6-8.7) g/dL Albumin (3.5-5.2) g/dL Globulin (1.3-4.6) g/dL Lipase (13-60) U/L Urine Color (Yellow) Urine Appearance (CLEAR) Urine pH (5-7) Ur Specific Gravit y (1.005-1.030) Urine Protein (Negative) Urine Glucose (UA) (Normal) Urine Ketones (Negative) Urine Blood (Negative) Urine Nitrate (Negative) Urine Bilirubin (NEGATIVE) Urine Urobilinogen (Negative) mg/dL Ur Leukocyte Jazzy ase (Negative) Urine RBC (0-2) /hpf Urine WBC (0-5) /hpf Ur Squamous Epith Cells (0-5) Amorphous Sediment Urine Bacteria (NONE) Urine Opiates Scre en Negative (Negative) ng/mL Ur Barbiturates Sc reen Negative (Negative) ng/mL Ur Phencyclidine S crn Negative (Negative) ng/mL Ur Amphetamines Sc reen Negative (Negative) ng/mL U Benzodiazepines Scrn Positive H (Negative) ng/mL Urine Cocaine Scre en Negative (Negative) ng/mL U Marijuana (THC) Screen Positive H (Negative) ng/mL 08/16/20 Range/Units 01:25 WBC (4.0-10.0) 10^3/ uL RBC (4.1-5.3) 10^6/u L Hgb (11.5-15.3) g/dL Hct (37.0-47.0) % MCV (81-99) fL MCH (28.0-34.0) pg MCHC (30.0-36.0) g/dL RDW (12.1-15.1) % Plt Count (130-400) 10^3/c mm MPV (7.4-10.4) fL Neut % (Auto) % Lymph % (Auto) % [place] % (Auto) % Eos % (Auto) % Baso % (Auto) % Neut # (Auto) (1.8-7.7) 10^3/u L Lymph # (Auto) (0.8-4.8) 10^3/u L [place] # (Auto) (0.2-0.9) 10^3/u L Eos # (Auto) (0.0-0.8) 10^3/u L Baso # (Auto) (0.0-0.1) 10^3/u L Nucleated RBC % (a uto) % Nucleated RBCs # /100WBC APTT (23.9-36.7) SECO NDS D-Dimer (0-0.59) ug/mIFE U Specimen Type Sample Site ABG pH (7.35-7.45) ABG pCO2 (35-45) mmHg ABG pO2 (80.0-100.0) mmH g ABG HCO3 (22-26) mmol/L ABG O2 Saturation ABG Base Excess (-2.0-2.0) mmol/ L Jamal Test A-a O2 Gradient (5-10) mmHg Hematocrit (37-47) % Hgb O2 Saturation (95-100) % Carboxyhemoglobin (0.4-20.1) %THgb Methemoglobin (0.4-1.5) % Total Hemoglobin (12-16) g/dL Ionized Calcium (1.1-1.4) mmol/L O2 Delivery Device FiO2 % Investigation Lieutenant ID Sodium (136-145) mmol/L Potassium (3.5-5.1) mmol/L Chloride (98-107) mmol/L Carbon Dioxide (22-29) mmol/L Anion Gap (5-19) BUN (6-20) mg/dL Creatinine (0.5-0.9) mg/dL GFR Calculation (90-130) mL/min Glucose (65-115) mg/dL Calculated Osmolal ity (285-295) mOsm/k g Calcium (8.5-10.5) mg/dL Magnesium (1.7-2.3) mg/dL Total Bilirubin (0.15-1.2) mg/dL AST (0-32) U/L ALT (0-33) U/L Alkaline Phosphata se (35-105) IU/L Troponin T Gen 5 n g/L (0-10) ng/L Troponin T Baselin e (0-10) ng/L Troponin T 120 Min [place] (0-10) ng/L Delta Troponin T (0-10) ABS# Troponin T Hi Sens 6Hr Troponin T Hi Sens 6Hr Delta NT-Pro-B Natriuret Pep (0-125) pg/mL Total Protein (6.6-8.7) g/dL Albumin (3.5-5.2) g/dL Globulin (1.3-4.6) g/dL Lipase (13-60) U/L Urine Color Yellow (Yellow) Urine Appearance Sl cloudy A (CLEAR) Urine pH 8 H (5-7) Ur Specific Gravit y 1.010 (1.005-1.030) Urine Protein Neg (Negative) Urine Glucose (UA) Norm (Normal) Urine Ketones 1+ H (Negative) Urine Blood Neg (Negative) Urine Nitrate Negative (Negative) Urine Bilirubin Neg (NEGATIVE) Urine Urobilinogen Norm (Negative) mg/dL Ur Leukocyte Jazzy ase Negative (Negative) Urine RBC None (0-2) /hpf Urine WBC None (0-5) /hpf Ur Squamous Epith Cells 5-10 H (0-5) Amorphous Sediment Trace Urine Bacteria Trace (NONE) Urine Opiates Scre en (Negative) ng/mL Ur Barbiturates Sc reen (Negative) ng/mL Ur Phencyclidine S crn (Negative) ng/mL Ur Amphetamines Sc reen (Negative) ng/mL U Benzodiazepines Scrn (Negative) ng/mL Urine Cocaine Scre en (Negative) ng/mL U Marijuana (THC) Screen (Negative) ng/mL Critical Care Time Critical Care Time: Critical Care Time: Yes Total Critical Care Time: 60 Attestation: This case had a high probability of a clinically significant, sudden, or life threatening deterioration of this patient's condition which required my full and direct attention, intervention and personal management. Discharge Plan Discharge Patient Disposition: Admitted As Inpatient Admit Provider: Octavia Mendiola Clinical Impression: Hypertensive crisis Condition: Stable Referrals: [facility] [Other] - 4-7 days Glen Mcfadden MD [Referring] - 2 weeks (HTN) Discharge Diet: Cardiac Discharge Activity: Increase activity as tolerated Patient Instructions: Lisinopril (By mouth), Albuterol (By breathing), Amlodipine (By mouth), Atorvastatin (By mouth) Additional Instructions: Please measure your blood pressure at home 3 times daily, record values. If blood pressure is elevated despite taking your scheduled medications, take a dose of 10 mg amlodipine if blood pressure is more than 180 systolic or more than 100 diastolic. If blood pressure remains persistently high, above 180/100, despite taking medications, please seek medical attention without delay. Please bring your blood pressure log to your primary care provider. Please see your primary care provider within a week, and have them follow-up with your potassium level. Referral is given to a kidney/blood pressure specialist for additional assessment due to high blood pressures and low potassium. As you are aware clonidine can cause rebound hypertension (very elevated blood pressure, higher than usual hypertension) if it is rapidly discontinued. If you may have difficulties obtaining this medication, it may be better to use something else group home if there is a risk of running out of the medicine. If there is this risk, please work with your primary care doctor to taper off clonidine and switch to something else. Discharge Date/Time: 10/22/19 04:23 Coding Level of Care Code ED Deli Department Manager for [employer] Fwd Exam Comprehensive
[2019-10-21 16:19] LABS: Partial Thromboplastin Time 33.4 SECONDS (23.9-36.7)
[2019-10-21 16:21] LABS: D Dimer <= 0.27 ug/mIFEU (0-0.59)
[2019-10-21 16:25] LABS: Troponin(5th) Baseline 7 ng/L (0-10)
[2019-10-21 16:33] LABS: Alanine Aminotransferase 11 U/L (0-33); Alkaline Phosphatase 81 IU/L (35-105); Anion Gap 15.4 (5-19); Aspartate Amino Transferase 12 U/L (0-32); Blood Urea Nitrogen 10 mg/dL (6-20); Calcium 8.5 mg/dL (8.5-10.5); Carbon Dioxide 27 mmol/L (22-29); Chloride 99 mmol/L (98-107); Glomerular Filtration Rate 77.9 mL/min (90-130); Glucose 99 mg/dL (65-115); Lipase 20 U/L (13-60); NT Pro B Type Natriuretic Pept 1376 pg/mL (0-125); Osmolality Calculated 284 mOsm/kg (285-295); Sodium 139 mmol/L (136-145); Total Bilirubin 0.4 mg/dL (0.15-1.2)
[2019-10-21 16:36] LABS: Potassium 2.4 mmol/L (3.5-5.1)
[2019-10-21 16:44] LABS: ABG PCO2 38.9 mmHg (35-45); ABG PH Result 7.52 (7.35-7.45); Alveolar-Arterial Oxygen Gradi 4.6 mmHg (5-10); Arterial Blood Gas Hematocrit 44.6 % (37-47); Base Excess ABG 8.2 mmol/L (-2.0-2.0); Blood Gas Operator Identificat glc; Blood Gas Sample Site Brachial, left; Blood Gas Sample Type Arterial; Carboxyhemoglobin 6.4 %THgb (0.4-20.1); HCO3 ABG 31.7 mmol/L (22-26); HGB O2 Sat 88.9 % (95-100); Ionized Calcium Level - ABG 1.1 mmol/L (1.1-1.4); Methemoglobin 0.3 % (0.4-1.5); Oxygen Device ROOM AIR; Oxygen Saturation ABG 95.3; PO2 ABG 65.2 mmHg (80.0-100.0); Potassium Level - ABG 2.3 mmol/L (3.5-5.0); Total Hemoglobin 14.6 g/dL (12-16)
[2019-10-21] MEDS: potassium chloride oral liq 20 mEq/15 mL UDC 60 MEQ PO (16:47)
[2019-10-21] MEDS: amlodipine 10 mg Tablet PO (16:47)
[2019-10-21] MEDS: hyDRALAzine 20 mg/mL INJ 1 mL 10 MG IVP (16:47)
[2019-10-21] MEDS: hyDRALAzine 20 mg/mL INJ 1 mL IVP (17:23)
--- NOTE | 2019-10-21 17:29 | ECG_ITS ---
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 Measurements Intervals [place] Rate: 58 P: 62 IN: 134 QRS: 23 QRSD: 101 T: 212 QT: 489 QTc: 483 Interpretive Statements SINUS BRADYCARDIA POSSIBLE LEFT ATRIAL ENLARGEMENT [-0.1mV P WAVE IN V1/V2] ST DEVIATION AND MODERATE T-WAVE ABNORMALITY, CONSIDER ANTEROLATERAL ISCHEMIA [-0.1+ mV T WAVE IN V3-V6] Compared to ECG 10/21/2019 15:25:30 Sinus rhythm no longer present T-wave abnormality still present Possible ischemia still present Electronically Signed On 10-22-2019 18:14:26 CDT by Ella Ozuna M.D. [id number]
[2019-10-21] MEDS: LORazepam 2 mg/mL INJ 1 mL 0.5 MG IVP ×2 (18:04→19:38)
[2019-10-21 18:51] LABS: Potassium 3.1 mmol/L (3.5-5.1); Troponin 5 2HR 8.32 ng/L (0-10); Troponin 5 2HR Delta 1.32 ABS# (0-10)
[2019-10-21 19:30] VITALS: RESP 22; O2SAT 97
[2019-10-21] MEDS: fentaNYL 50 mcg/mL INJ 2mL 100 MCG IVP (19:30)
[2019-10-21 20:36] VITALS: BP 208/108
--- NOTE | 2019-10-21 21:29 | ECG_ITS ---
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 Measurements Intervals [place] Rate: 74 P: 109 W[place]: 136 QRS: 124 QRSD: 96 T: -17 QT: 425 QTc: 472 Interpretive Statements SINUS RHYTHM ARM LEADS REVERSED [INVERTED P AND QRS IN I] Compared to ECG 10/21/2019 16:32:19 Sinus bradycardia no longer present T-wave abnormality no longer present Possible ischemia no longer present Electronically Signed On 10-22-2019 18:14:34 CDT by Ella Ozuna M.D. [id number]
--- NOTE | 2019-10-21 21:51 | PM.HP ---
Providers/Chief Complaint Admitting Physician: Malrena Chief Complaint: cp, arm numbness, mouth tingling History of Present Illness Leann Monte is a 44 year old female who presented to the emergency room with substernal chest pain, numbness and tingling in her arms and legs as well as around her face, nausea and vomiting. She was feeling fine yesterday. She did go out and have a few drinks last night. Denies any drug use. She has a chronic history of hypertension and is on clonidine tablets. She is also supposed to be on spironolactone but has not had it for several months as she cannot afford it. Her last dose of clonidine was around 3:00 today. She started feeling bad in the middle of the day. First thing she noticed was shortness of breath. Later on she began having substernal chest pain later followed by the numbness and tingling. No focal weakness in her extremities, no speech difficulties, no difficulty swallowing but just has a pins and needle sensation all over. This was later followed by the development of some nausea and vomiting. On arrival to the emergency room blood pressures were 210s/110s. While in the emergency room she received a total of 30 mg of hydralazine, 10 mg of amlodipine, total of 1-1/2 mg of Ativan, 150 mics of fentanyl with no improvement in her blood pressures. Blood pressures were as high as 260s over 130s. During the timeframe in which her blood pressures were the highest, chest pain which she described as a tightness in her chest was radiating straight through to her back. She rated the discomfort at a 10 out of 10. EKG with some nonspecific ST segment depression. Given the escalation of her blood pressures combined with worsening symptomology, she did undergo CTA of the chest after my initial evaluation in the emergency room that did not show any evidence of dissection or PE. With nitroglycerin drip, patient's blood pressures were down to 186/93. Patient was noted to have an elevated BNP along with clinical symptoms suggestive of endorgan involvement. She is being admitted for further evaluation and treatment. She has had 1 prior episode of severe hypertension that occurred after she experienced a miscarriage. She has a history of 6 miscarriages. She had an [facility] screen back in 2011 that was negative. Still await urinalysis still await results of urinalysis. Review of Systems General: Reports: Other (No known sick contacts) Const: Reports: body aches and malaise; Denies: fever(s), chills or change in appetite Eyes: Denies: change in vision ENMT: Denies: throat pain, dry mouth or nasal congestion Card: Reports: chest pain; Denies: palpitations or edema Resp: Reports: dyspnea and productive cough; Denies: non-productive cough or hemoptysis GI: Reports: nausea and vomiting; Denies: abdominal pain, diarrhea or constipation : Denies: difficulty voiding Skin/Breast: Denies: rash or pruritus Neuro: Reports: headache(s) and numbness in extremities; Denies: weakness in extremities, difficulty walking, dizziness, Slurred speech present or involuntary movements Psych: Reports: anxiety and depression; Denies: panic attacks Simon/Lymph: Denies: easy bruising or easy bleeding Medications/Allergies Home Medications Medication Instructions Recorded Confirmed Last Taken Type spironolactone 25 mg tablet 25 mg PO BID #60 tab 04/05/19 10/21/19 Unknown Rx clonidine HCl 0.2 mg tablet 0.2 mg PO TID #90 tab 09/21/19 10/21/19 10/21/19 15:00 Rx aripiprazole [Abilify] 5 mg PO DAILY 10/21/19 10/21/19 10/21/19 History citalopram 40 mg PO DAILY 10/21/19 10/21/19 10/21/19 History hydroxyzine HCl 50 - 100 mg PO BEDTIME PRN 10/21/19 10/21/19 10/20/19 History trazodone 50 mg PO BEDTIME PRN 10/21/19 10/21/19 10/20/19 History Allergies Allergy/AdvReac Type Severity Reaction Status Date / Time Penicillins Allergy Severe Anaphylaxis Verified 09/22/19 10:18 morphine Allergy Intermediate ADR-Vomitin Verified 09/22/19 10:18 g naproxen Allergy Intermediate ADR-Vomitin Verified 09/22/19 10:18 g EGGS AdvReac Severe N & V, Uncoded 09/22/19 10:18 Stomach pain, Throat swells shut flu shot AdvReac Severe N & V, Uncoded 09/22/19 10:18 Stomach pain, Throat swells shut nuts AdvReac Severe Vomiting & Uncoded 09/22/19 10:18 throat swells PFSH Acute PFSH: Medical History (Updated 10/22/19 @ 02:16 by Octavia Mendiola MD) Generalized anxiety disorder 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 Hx of nephrolithotomy with removal of calculi Hypertension Major depressive disorder, recurrent, moderate Post-traumatic stress disorder, chronic Surgical History History of removal of ovarian cyst Hx of cholecystectomy Hx of hernia repair Hx of lithotripsy Family History (Updated 10/21/19 @ 22:58 by Octavia Mendiola MD) Other Psychiatric illness Social History (Updated 10/21/19 @ 22:51 by Octavia Mendiola MD) Smoking and tobacco status: current every day smoker cigarettes Years cigarettes smoked: 25 Number of cigarettes per day: 11-20 Quit status (tobacco): has tried quititng Number of times tried to quit tobacco: 5 Second hand smoke exposure: No Additional social history: Denies regular alcohol use Denies current drug use Female Reproductive History: : 6 Para: 0 Spontaneous abortions: Yes (all 6 pregnancies) Vitals/I&O/Wt Last Vital Signs Temp 98.4 F 10/21/19 15:18 Pulse 87 10/21/19 15:18 Resp 22 H 10/21/19 19:30 BP 212/129 10/21/19 15:18 Pulse Ox 97 10/21/19 19:30 Weight last 48 hrs Weight 68.039 kg Physical Exam Const: OTHER: Alert, oriented x3, cooperative, acutely ill-appearing HENMT: OTHER: Normocephalic atraumatic, nasopharynx is clear, mucous membranes moist Eye: OTHER: Pupils equally round and reactive to light, no photophobia, extraocular movements intact, slightly muddy sclera Neck/C-Spine: OTHER: Supple Resp: OTHER: Clear to auscultation bilaterally no rales rhonchi or wheezes noted, currently tachypneic Cardio: OTHER: Regular rate and rhythm no murmurs or rubs noted, no JVD, pulses intact at both feet GI: OTHER: Abdomen soft, nondistended, positive bowel sounds : OTHER: Deferred Extremity: NARRATIVE EXTREMITY EXAM: No cyanosis, clubbing or edema Neuro: OTHER: Face symmetric, speech clear, moves all extremities, sensation intact to light touch Skin: NARRATIVE SKIN EXAM: Patient with dry skin, some areas of hypervascularity noted on the face, no acute rashes Data : 10/21/19 15:58 10/21/19 18:28 Other Labs: Laboratory Last Values WBC 9.1 10^3/uL (4.0-10.0) 10/21/19 15:58 RBC 4.57 10^6/uL (4.1-5.3) 10/21/19 15:58 Hgb 14.5 g/dL (11.5-15.3) 10/21/19 15:58 Hct 42.5 % (37.0-47.0) 10/21/19 15:58 MCV 93.0 fL (81-99) 10/21/19 15:58 MCH 31.7 pg (28.0-34.0) 10/21/19 15: MCHC 34.1 g/dL (30.0-36.0) 10/21/19 15: RDW 13.8 % (12.1-15.1) 10/21/19 15:58 Plt Count 327 10^3/cmm (130-400) 10/21/19 15:58 MPV 8.8 fL (7.4-10.4) 10/21/19 15:58 Neut % (Auto) 56.3 % 10/21/19 15:58 Lymph % (Auto) 32.7 % 10/21/19 15:58 Long % (Auto) 6.0 % 10/21/19 15:58 Eos % (Auto) 4.4 % 10/21/19 15:58 Baso % (Auto) 0.5 % 10/21/19 15:58 Neut # (Auto) 5.13 10^3/uL (1.8-7.7) 10/21/19 15:58 Lymph # (Auto) 3.0 10^3/uL (0.8-4.8) 10/21/19 15:58 Long # (Auto) 0.6 10^3/uL (0.2-0.9) 10/21/19 15:58 Eos # (Auto) 0.4 10^3/uL (0.0-0.8) 10/21/19 15:58 Baso # (Auto) 0.1 10^3/uL (0.0-0.1) 10/21/19 15:58 Nucleated RBC % (auto) 0 % 10/21/19 15: Nucleated RBCs # 0.0 /100WBC 10/21/19 15:58 APTT 33.4 SECONDS (23.9-36.7) 10/21/19 15:58 D-Dimer <= 0.27 ug/mIFEU (0-0.59) 10/21/19 15:58 Specimen Type Arterial 10/21/19 16:31 Sample Site Brachial, left 10/21/19 16:31 ABG pH 7.52 (7.35-7.45) H 10/21/19 16:31 ABG pCO2 38.9 mmHg (35-45) 10/21/19 16:31 ABG pO2 65.2 mmHg (80.0-100.0) L 10/21/19 16:31 ABG HCO3 31.7 mmol/L (22-26) H 10/21/19 16:31 ABG O2 Saturation 95.3 10/21/19 16:31 ABG Base Excess 8.2 mmol/L (-2.0-2.0) H 10/21/19 16:31 Jamal Test N/a 10/21/19 16:31 A-a O2 Gradient 4.6 mmHg (5-10) L 10/21/19 16:31 Hematocrit 44.6 % (37-47) 10/21/19 16:31 Hgb O2 Saturation 88.9 % (95-100) L 10/21/19 16:31 Carboxyhemoglobin 6.4 %THgb (0.4-20.1) 10/21/19 16:31 Methemoglobin 0.3 % (0.4-1.5) L 10/21/19 16:31 Total Hemoglobin 14.6 g/dL (12-16) 10/21/19 16:31 Sodium 142.0 mmol/L (131-143) 10/21/19 16:31 Potassium 2.3 mmol/L (3.5-5.0) L 10/21/19 16:31 Glucose 101.0 mg/dL (70-115) 10/21/19 16:31 Ionized Calcium 1.1 mmol/L (1.1-1.4) 10/21/19 16:31 O2 Delivery Device Room air 10/21/19 16:31 FiO2 21.0 % 10/21/19 16:31 Management Analyst ID glc 10/21/19 16:31 Sodium 139 mmol/L (136-145) 10/21/19 15:58 Potassium 3.1 mmol/L (3.5-5.1) L 10/21/19 18:28 Chloride 99 mmol/L (98-107) 10/21/19 15:58 Carbon Dioxide 27 mmol/L (22-29) 10/21/19 15:58 Anion Gap 15.4 (5-19) 10/21/19 15:58 BUN 10 mg/dL (6-20) 10/21/19 15:58 Creatinine 0.8 mg/dL (0.5-0.9) 10/21/19 15:58 GFR Calculation 77.9 mL/min (90-130) L 10/21/19 15:58 Glucose 99 mg/dL (65-115) 10/21/19 15:58 Calculated Osmolality 284 mOsm/kg (285-295) L 10/21/19 15:58 Calcium 8.5 mg/dL (8.5-10.5) 10/21/19 15:58 Magnesium 2.0 mg/dL (1.7-2.3) 10/21/19 15:58 Total Bilirubin 0.4 mg/dL (0.15-1.2) 10/21/19 15:58 AST 12 U/L (0-32) 10/21/19 15:58 ALT 11 U/L (0-33) 10/21/19 15:58 Alkaline Phosphatase 81 IU/L (35-105) 10/21/19 15:58 Troponin T Gen 5 ng/L 6 ng/L (0-10) 10/21/19 23:48 Troponin T Baseline 7 ng/L (0-10) 10/21/19 15:58 NT-Pro-B Natriuret Pep 1376 pg/mL (0-125) H 10/21/19 15:58 Total Protein 7.0 g/dL (6.6-8.7) 10/21/19 15:58 Albumin 4.0 g/dL (3.5-5.2) 10/21/19 15:58 Globulin 3.0 g/dL (1.3-4.6) 10/21/19 15:58 Lipase 20 U/L (13-60) 10/21/19 15:58 A&P Assessment and plan (1) Hypertensive urgency: With chest pain, neurological symptoms including paresthesias and muscular spasticity, active vomiting and elevation in BNP level. Has chronic hypertension treated with clonidine so some rebound hypertension I think is also contributing. Last dose of clonidine was around 3 PM. She did receive a dose in the emergency room. Was ultimately started on a nitroglycerin drip after multiple other medications failed to provide improvement. Status: Chronic (2) Elevated brain natriuretic peptide (BNP) level: Status: Acute (3) Hypokalemia: Status: Acute (4) Generalized anxiety disorder: Does not appear to be an anxiety driven situation at the present time though there could be a component with her progressive symptoms throughout the day today Status: Chronic (5) Post-traumatic stress disorder, chronic: Status: Chronic (6) Nicotine dependence, cigarettes, uncomplicated: Status: Chronic Additional A&P Information Chest x-ray and CTA of the chest interpreted as pneumonitis and groundglass opacities respectively and in light of other symptoms was COVID tested with rapid antigen and was negative Inpatient admission Continue nitroglycerin drip for now, consideration was given to initiation of Cardene drip in the emergency room but thus far has not required it Clonidine ideally as something we would probably like to get her off to minimize impact of rebound hypertension contributing to events just like this today but it is a blood pressure medication that she cannot afford and also may have been prescribed for other reasons. I am going to resume it. Start lisinopril and HCTZ which may be cheaper in combination than the spironolactone Echocardiogram in the morning Serial cardiac enzymes Check lipid panel in the morning for risk stratification Follow-up pending urinalysis in particular checking for any proteinuria Recheck electrolytes in the morning Resume home Abilify, citalopram and hydroxyzine Trazodone if needed for sleep Protonix for GI prophylaxis in the setting of vomiting Nicotine patch if needed SCDs for DVT prophylaxis currently until blood pressure is under better control Supportive care otherwise Plans were discussed with patient as well as her fianc? who was in the room with her with her permission. They were given an opportunity to ask questions. Full code Attestations Medical Necessity Statement*: Anticipated stay greater than 2 midnights in a patient presenting with hypertensive urgency as noted above. At high risk of significant endorgan damage without appropriate intervention. In addition she had hypokalemia necessitating replacement. Plans are as indicated. Coding Level of Care Code Acute Roads Superintendent for Chg Fwd Diagnoses Hypertensive urgency I16.0 Elevated brain natriuretic peptide (BNP) level R79.89 Hypokalemia E87.6 Generalized anxiety disorder F41.1 Post-traumatic stress disorder, chronic F43.12 Nicotine dependence, cigarettes, uncomplicated F17.210
[2019-10-21] MEDS: ondansetron 2 mg/ML SDV 2 mL 4 MG IVP ×2 (22:10→23:45)
[2019-10-21 22:15] VITALS: RESP 22; O2SAT 92
[2019-10-21] MEDS: fentaNYL 50 mcg/mL INJ 2mL IVP (22:15)
--- NOTE | 2019-10-21 22:17 | ECG_ITS ---
[facility] Test Date: 2019-10-21 Pat Name: Leann Monte Department: Room: Gender: Female [employer]: : 1975 Requested By: Octavia Mendiola Order Number: [id number] Nelly MD: Ella Ozuna M.D. Measurements Intervals [place] Rate: 81 P: 84 MN: 123 QRS: 81 QRSD: 94 T: -67 QT: 428 QTc: 498 Interpretive Statements SINUS RHYTHM POSSIBLE RIGHT ATRIAL ENLARGEMENT [0.25mV P WAVE] POSSIBLE LEFT ATRIAL ENLARGEMENT [-0.1mV P WAVE IN V1/V2] ST DEVIATION AND MODERATE T-WAVE ABNORMALITY, CONSIDER LATERAL ISCHEMIA [-0.1+ mV T WAVE IN I/aVL/V5/V6] ST DEVIATION AND MODERATE T-WAVE ABNORMALITY, CONSIDER INFERIOR ISCHEMIA [-0.1+ mV T WAVE IN II/aVF] Compared to ECG 10/21/2019 18:00:09 T-wave abnormality now present Possible ischemia now present Electronically Signed On 10-22-2019 18:11:05 CDT by Ella Ozuna M.D. [email or web address] hospitals [email or web address]/[id number] [email or web address]
--- NOTE | 2019-10-21 22:20 | CTR_ITS ---
PROCEDURE INFORMATION: Exam: CT Angiography Chest With Contrast Exam date and time: 10/21/2019 10:37 PM Age: 44 years old Clinical indication: Left-sided chest pain; Patient HX: C/O cp w lue numbness/tingling TECHNIQUE: Imaging protocol: Computed tomographic angiography of the chest with intravenous contrast. 3D rendering: MIP and/or 3D reconstructed images were created by the technologist. Radiation optimization: All CT scans at this facility use at least one of these dose optimization techniques: automated exposure control; mA and/or kV adjustment per patient size (includes targeted exams where dose is matched to clinical indication); or iterative reconstruction. Contrast material: OMNI 350; Contrast volume: 95 ml; Contrast route: INTRAVENOUS (IV); COMPARISON: CR (CHEST, ) 10/21/2019 4:05 PM RADIATION DOSE METRICS: Total DLP (mGy-cm): 575.67 FINDINGS: Pulmonary arteries: There is no pulmonary embolus. Aorta: Unremarkable. No aortic aneurysm. No aortic dissection. Lungs: There is mild coarsening of the interstitial lung markings with mild ground-glass opacity mostly in the upper lobes with a mild tree-in-bud appearance compatible with mild pneumonitis. No lobar consolidation. There is subpleural atelectasis of the dependent portions of the lungs. Pleural space: Unremarkable. No pneumothorax. No pleural effusion. Heart: The heart is enlarged. Lymph nodes: Unremarkable. No enlarged lymph nodes. Adrenals: The there is a 1.8 cm right adrenal nodule containing macroscopic fat compatible with an incidental myelolipoma. Bones/joints: Unremarkable. No acute fracture. Soft tissues: Unremarkable. CT/CT angio chest PE protcl [id number] IMPRESSION: 1. There is no pulmonary embolus. 2. There is mild coarsening of the interstitial lung markings with mild ground-glass opacity mostly in the upper lobes with a mild tree-in-bud appearance compatible with mild pneumonitis. 3. There is an incidental right adrenal myelolipoma. Radiation Dose CTDIVOL = (mGy): DLP = 575.67 (mGy-cm)
--- NOTE | 2019-10-21 22:24 | PC.NURSE ---
per vo from Dr Chávez, hold on cardene drip, start nitro drip
[2019-10-21] MEDS: nitroglycerin drip 50 MG/250 ML PREMIX IV (22:48)
--- NOTE | 2019-10-21 22:53 | PC.NURSE ---
vo from Dr Chávez, hold on clonadine po due to pt actively vomiting
[2019-10-22] VITALS (72 sets, daily range): BP systolic 117–196; BP diastolic 61–111; PULSE 56–93; RESP 9–25; TEMP 36.7–37.2; O2SAT 90–100
--- NOTE | 2019-10-22 | USCV_ITS ---
Leann Monte Age: 44 Gender: F : 1975 Exam Date: 10/22/2019 09:48 Ordering Phys: Sylvain Tompkins MD Technologist: Angela Olsen Exam Location: [facility] [place] Indication: Hypertensive emergency BP: 187 / 91 HR: Rhythm: Sinus Technical Quality: Adequate MEASUREMENTS (Male / Female) Normal Values FINDINGS Left Ventricle Normal left ventricular cavity size. Moderate left ventricular hypertrophy of concentric type. No regional wall motion abnormalities. Left ventricular ejection fraction is estimated at 70 %. Left ventricle function is hyperdynamic.Grade I/IV diastolic dysfunction (abnormal relaxation filling pattern), normal to mildly elevated filling pressures. Right Ventricle The right ventricle is normal in size and function. Right Atrium The right atrium is normal in size. Left Atrium The left atrium is normal in size. Mitral Valve Structurally normal mitral valve without significant stenosis or prolapse. There is no mitral regurgitation. Aortic Valve Structurally normal aortic valve without significant sclerosis or stenosis. There is no aortic regurgitation. Tricuspid Valve Structurally normal tricuspid valve without significant stenosis or regurgitation. Pulmonic Valve Structurally normal pulmonic valve without significant stenosis. There is no pulmonic regurgitation. Pericardium Normal pericardium without effusion. Aorta Normal ascending aorta dimension. CONCLUSIONS 1-Normal left ventricular cavity size. Moderate left ventricular hypertrophy of concentric type. No regional wall motion abnormalities. Left ventricular ejection fraction is estimated at 70 %. Left ventricle function is hyperdynamic.Grade I/IV diastolic dysfunction (abnormal relaxation filling pattern), normal to mildly elevated filling pressures. 2-No significant valve abnormalities. 3-There is no pericardial effusion. 4-Right atrial pressure is around 5 mm of mercury. 5-There are no prior echocardiogram studies to compare. Ella Ozuna MD Edited by: CV Fitting Room Checker (Electronically Signed) Final Date: 22 October 2019 14:28 Amended: 23 October 2019 12:32 C
[2019-10-22] MEDS: iohexol 350 mg/mL 100 mL Btl IV (00:08)
[2019-10-22 00:59] LABS: Troponin T (5th) Once 6 ng/L (0-10)
[2019-10-22] MEDS: fentaNYL 50 mcg/mL INJ 2mL IVP (01:30)
[2019-10-22] MEDS: hyDRALAzine 20 mg/mL INJ 1 mL IVP ×2 (01:50→14:33)
[2019-10-22 01:55] LABS: Amphetamines Screen Urine Negative (Negative); Barbiturates Screen Urine Negative (Negative); Benzodiazepines Screen Urine Positive (Negative); Cocaine Screen Urine Negative (Negative); Opiate Screen Urine Negative (Negative); PCP Screen Urine Negative (Negative); THC Screen Urine Positive (Negative)
[2019-10-22 01:57] LABS: Urine Color Yellow (Yellow)
[2019-10-22 01:58] LABS: Add Urine Microscopic? YES; Bilirubin Urine Neg (NEGATIVE); Blood Urine Neg (Negative); Glucose Urine UA Norm (Normal); Ketones Urine 1+ (Negative); Leukocyte Esterase Urine Negative (Negative); Nitrate Urine Negative (Negative); Protein Urine Neg (Negative); Urobilinogen Urine Norm (Negative); pH Urine 8 (5-7)
[2019-10-22 02:00] LABS: Add Urine Culture? No; Amorphous Sediment Urine TRACE; Bacteria Urine TRACE
[2019-10-22 02:02] LABS: SARS Covid-2 Antigen Negative (Negative)
[2019-10-22] MEDS: haloperidol inj 5 mg/mL INJ 1 mL 3 MG IVP (03:00)
--- NOTE | 2019-10-22 03:50 | PC.NURSE ---
Admit Note Arrived to floor drowsy but oriented. Denies chest pain at this time. Nitro drip infusing at 15mcg upon arrival to unit. Breathing is even and non-labored on room air. Lungs coarse/rhonchi throughout. Oriented to room and call light.
[2019-10-22 04:23] LABS: Basophils % 0.2 %; Eosinophils % 0.1 %; Hematocrit 45.7 % (37.0-47.0); Hemoglobin 15.3 g/dL (11.5-15.3); Lymphocytes # 1.5 10^3/uL (0.8-4.8); Lymphocytes % 12.1 %; Mean Corpuscular HGB Conc 33.5 g/dL (30.0-36.0); Mean Corpuscular Hemoglobin 31.2 pg (28.0-34.0); Mean Corpuscular Volume 93.3 fL (81-99); Mean Platelet Volume 9.1 fL (7.4-10.4); Monocytes # 0.4 10^3/uL (0.2-0.9); Neutrophils # 10.72 10^3/uL (1.8-7.7); Neutrophils % 84.4 %; Nucleated Red Blood Cells % 0 %; Platelet Count 316 10^3/cmm (130-400); Red Cell Distribution Width 14.2 % (12.1-15.1); White Blood Count 12.7 10^3/uL (4.0-10.0)
[2019-10-22 04:45] LABS: Chol HDL Ratio 4.39 mg/dL (0.0-4.40); Cholesterol 215 mg/dL (0-200); HDL Cholesterol 49 mg/dL (60-100); LDL Cholesterol Calculated 145 mg/dL (50-129); LDL HDL Ratio 2.96 RATIO (0.00-3.22); Triglycerides 105 mg/dL (0-150)
[2019-10-22 04:46] LABS: Alanine Aminotransferase 12 U/L (0-33); Albumin Level 4.4 g/dL (3.5-5.2); Alkaline Phosphatase 93 IU/L (35-105); Anion Gap 17.6 (5-19); Aspartate Amino Transferase 14 U/L (0-32); Blood Urea Nitrogen 9 mg/dL (6-20); Carbon Dioxide 25 mmol/L (22-29); Chloride 102 mmol/L (98-107); Creatinine Clr Calc Pharmacy 94.9662; Globulin 2.8 g/dL (1.3-4.6); Glomerular Filtration Rate 90.9 mL/min (90-130); Glucose 149 mg/dL (65-115); Magnesium 1.9 mg/dL (1.7-2.3); Osmolality Calculated 293 mOsm/kg (285-295); Sodium 142 mmol/L (136-145); Total Bilirubin 0.7 mg/dL (0.15-1.2); Total Protein 7.2 g/dL (6.6-8.7)
[2019-10-22 04:54] LABS: Potassium 2.6 mmol/L (3.5-5.1)
[2019-10-22 04:56] LABS: Arterial Blood Gas Hematocrit 46.8 % (37-47); Blood Gas Allen Test Pos; Blood Gas Operator Identificat JB; Blood Gas Sample Site Radial, right; Blood Gas Sample Type Arterial; HCO3 ABG 28.2 mmol/L (22-26); Oxygen Device ROOM AIR; PO2 ABG 62.7 mmHg (80.0-100.0)
[2019-10-22] MEDS: potassium chloride premix 40 MEQ/100 ML PREMIX 25 MEQ IV (05:55)
[2019-10-22] MEDS: potassium chloride ER 10 mEq Tablet 20 MEQ PO (05:55)
[2019-10-22] MEDS: lidocaine 1% INJ 20 mL 5 ML IV (05:55)
--- NOTE | 2019-10-22 06:00 | PC.NURSE ---
Patient complaining of severe headache. Nitro continues to infuse at 30mcg, suspect nitro induced headache. Dr. Mendiola notified, orders received from physician that she will call back.
[2019-10-22 06:24] LABS: Phosphorus 2.6 mg/dL (2.5-4.5)
[2019-10-22] MEDS: ondansetron 2 mg/ML SDV 2 mL 4 MG IVP (06:31)
[2019-10-22] MEDS: cloNIDine 0.1 mg Tablet PO (06:33)
[2019-10-22] MEDS: acetaminophen 325 mg Tablet 650 MG PO (06:37)
--- NOTE | 2019-10-22 06:47 | PC.NURSE ---
Pt unable tolerate IV K-rider. Rate titrated from 25ml/hr down to 10ml/hr, patient reports burning but able to tolerate.
--- NOTE | 2019-10-22 09:28 | PM.PN ---
Subjective Subjective: Interval history: She is overall feeling much better, but is still having persistent headache. She gets headaches intermittently, but says this one is pretty bad. Says it started yesterday when she was having spasms due to hypokalemia. This has gotten better, but hadache is still there. Vitals/I&O/Wt Last Vital Signs Temp 98.1 F 10/22/19 04:00 Pulse 87 10/22/19 06:00 Resp 15 10/22/19 06:00 BP 189/101 10/22/19 06:33 Pulse Ox 98 10/22/19 06:00 10/21/19 10/22/19 10/22/19 22:59 06:59 14:59 Intake Total 39.225 / 39.225 43.425 / 43.425 Balance 39.225 / 39.225 43.425 / 43.425 Weight last 48 hrs Weight 73.845 kg Weight 68.039 kg Physical Exam Const: COMMON NORMALS: no acute distress and patient oriented x3 GENERAL APPEARANCE: anxious HENMT: COMMON NORMALS: oropharynx normal Neck/C-Spine: COMMON NORMALS: no JVD Resp: COMMON NORMALS: normal respiratory effort AUSCULTATION: wheezes Cardio: COMMON NORMALS: no JVD, regular rhythm, S1 normal heart sound present, S2 normal heart sound present and No murmurs present (Cardio) RHYTHM: regular rhythm HEART SOUNDS: S1 normal heart sound present and S2 normal heart sound present GI: COMMON NORMALS: Normal to inspection, nondistended, normoactive bowel sounds present, Soft to palpation and non-tender PALPATION: Yes Soft to palpation Extremity: COMMON NORMALS: no joint enlargement and no pedal edema Neuro: COMMON NORMALS: patient oriented x3 and moves all extremities Skin: COMMON NORMALS: no rashes or lesions noted GENERAL SKIN EXAM: no rashes or lesions noted Data : 10/22/19 04:00 10/22/19 04:00 A&P Assessment and plan (1) Hypertensive urgency: Blood pressure is down to 150/78, still on nitroglycerin drip. Was continued on clonidine. Also started on HCTZ, lisinopril. She is having persistent headache which she describes as severe. We will go ahead and assessed with noncontrast CT of the head. Overall she is feeling better. Attempted to wean off nitroglycerin drip. Instructed her to measure blood pressures at home at least several times daily. She states measures once every several days. They should help her stay ahead of severe hypotensive episodes, and may need additional blood pressure medication to take in case of persistently elevated blood pressure. Instructed her in case of blood pressure not improving with treatment, staying persistently elevated, and associated with any symptoms like headache, chest pain, shortness of breath, or other, should seek medical attention immediately. She verbalized understanding. We will also request case management to see her if she does not have a primary care provider and will need want to continue follow-up and additional investigations with regards to her hypertension. She used to be on spironolactone in the past. Status: Chronic (2) Elevated brain natriuretic peptide (BNP) level: Suspected elevated secondary to hypertensive urgency. She does have some wheezing on exam. When discussed endorses history of asthma. Status: Acute (3) Hypokalemia: Receiving replacement. Status: Acute (4) Generalized anxiety disorder: Continue follow-up with behavioral health care provider. She reports having chronic depression, although says this is been under good control. Her psychiatrist manages her other medications as well. Status: Chronic (5) Post-traumatic stress disorder, chronic: Status: Chronic (6) Nicotine dependence, cigarettes, uncomplicated: Status: Chronic (7) Asthma: Is wheezing on exam. Endorses history of asthma. Add albuterol inhaler as needed. She denies shortness of breath or chest pain. Saturating well on room air. Status: Acute Additional A&P Information Chest x-ray and CTA of the chest interpreted as pneumonitis and groundglass opacities respectively and in light of other symptoms was COVID tested with rapid antigen and was negative. Attestations Medical Necessity Statement*: Continue admission for assessment management of hypertensive urgency, requirement for IV infusion medication to control blood pressure, additional assessment of severe headache. Coding Level of Care Code Acute Law Office Receptionist for Scotty Lewis Diagnoses Hypertensive urgency I16.0 Elevated brain natriuretic peptide (BNP) level R79.89 Hypokalemia E87.6 Generalized anxiety disorder F41.1 Post-traumatic stress disorder, chronic F43.12 Nicotine dependence, cigarettes, uncomplicated F17.210 Asthma J45.909
[2019-10-22] MEDS: pantoprazole DR 40 mg Tablet PO (09:29)
[2019-10-22] MEDS: citalopram 20 mg Tablet 40 MG PO (09:29)
[2019-10-22] MEDS: lisinopril 10 mg Tablet PO (09:29)
[2019-10-22] MEDS: cloNIDine 0.1 mg Tablet 0.2 MG PO ×3 (09:30→20:14)
[2019-10-22] MEDS: ARIPiprazole 10 mg Tablet 5 MG PO (09:30)
--- NOTE | 2019-10-22 09:33 | CTR_ITS ---
PROCEDURE INFORMATION: Exam: CT Head Without Contrast Exam date and time: 10/22/2019 10:00 AM Age: 44 years old Clinical indication: Pain; Headache TECHNIQUE: Imaging protocol: Computed tomography of the head without contrast. Radiation optimization: All CT scans at this facility use at least one of these dose optimization techniques: automated exposure control; mA and/or kV adjustment per patient size (includes targeted exams where dose is matched to clinical indication); or iterative reconstruction. COMPARISON: No relevant prior studies available. RADIATION DOSE METRICS: Total DLP (mGy-cm): 782.83 FINDINGS: Brain: Normal. No hemorrhage. Unremarkable white matter. No mass effect. Ventricles: Normal. No ventriculomegaly. Bones/joints: Unremarkable. No acute fracture. Sinuses: Visualized sinuses are unremarkable. No fluid levels. Mastoid air cells: Visualized mastoid air cells are well aerated. Soft tissues: Unremarkable. CT/CT head wo con* [id number] IMPRESSION: No acute intracranial abnormality. Radiation Dose CTDIVOL = (mGy): DLP = 782.83 (mGy-cm)
[2019-10-22] MEDS: nitroglycerin 1 gm/inch oint Pkt 2 INCH TOPICAL (14:33)
[2019-10-22] MEDS: LORazepam 2 mg/mL INJ 1 mL 0.5 MG IVP (14:34)
[2019-10-22 14:47] LABS: Potassium 2.7 mmol/L (3.5-5.1)
[2019-10-22 16:57] LABS: Potassium 3.1 mmol/L (3.5-5.1)
[2019-10-22] MEDS: spironolactone 25 mg Tablet PO (17:28)
[2019-10-22] MEDS: potassium chloride oral liq 20 mEq/15 mL UDC 40 MEQ PO (20:11)
[2019-10-23] VITALS (49 sets, daily range): BP systolic 133–222; BP diastolic 73–119; PULSE 52–99; RESP 8–22; TEMP 37; O2SAT 93–100
[2019-10-23] MEDS: hyDROXYzine 25 mg Capsule 50 MG PO (03:37)
[2019-10-23] MEDS: nicotine 14 mg Patch 1 PATCH TRANSDERMA (03:37)
[2019-10-23] MEDS: LORazepam 2 mg/mL INJ 1 mL 0.5 MG IVP (03:37)
[2019-10-23] MEDS: trazodone 50 mg Tablet PO (03:38)
[2019-10-23] MEDS: acetaminophen 325 mg Tablet 650 MG PO (03:38)
--- NOTE | 2019-10-23 04:04 | PC.NURSE ---
Patient's 1BP >160mmHg et patient complaining of headache at 09/14. Dr. Mendiola in unit. Discussed situation et plan of care with physician. Physician recommended to administer patient's PRN medications for anxiety et sleep. No new orders given at this time. Will continue to monitor.
--- NOTE | 2019-10-23 06:51 | PC.NURSE ---
Report given to Jory.
[2019-10-23] MEDS: lisinopril 10 mg Tablet PO (08:20)
[2019-10-23] MEDS: cloNIDine 0.1 mg Tablet 0.2 MG PO (08:21)
[2019-10-23] MEDS: ARIPiprazole 10 mg Tablet 5 MG PO (08:22)
[2019-10-23] MEDS: spironolactone 25 mg Tablet PO (08:23)
[2019-10-23] MEDS: citalopram 20 mg Tablet 40 MG PO (08:24)
[2019-10-23] MEDS: pantoprazole DR 40 mg Tablet PO (08:24)
[2019-10-23 09:10] LABS: Basophils % 0.5 %; Eosinophils # 0.3 10^3/uL (0.0-0.8); Eosinophils % 3.6 %; Hemoglobin 13.8 g/dL (11.5-15.3); Lymphocytes # 3.3 10^3/uL (0.8-4.8); Mean Corpuscular HGB Conc 33.7 g/dL (30.0-36.0); Mean Corpuscular Hemoglobin 32.2 pg (28.0-34.0); Mean Corpuscular Volume 95.6 fL (81-99); Mean Platelet Volume 9.1 fL (7.4-10.4); Monocytes # 0.4 10^3/uL (0.2-0.9); Monocytes % 5.6 %; Neutrophils # 3.62 10^3/uL (1.8-7.7); Neutrophils % 47.2 %; Nucleated Red Blood Cells % 0 %; Platelet Count 294 10^3/cmm (130-400); Red Blood Count 4.29 10^6/uL (4.1-5.3); Red Cell Distribution Width 14.2 % (12.1-15.1); White Blood Count 7.7 10^3/uL (4.0-10.0)
[2019-10-23 09:22] LABS: Anion Gap 11.9 (5-19); Blood Urea Nitrogen 14 mg/dL (6-20); Calcium 8.9 mg/dL (8.5-10.5); Carbon Dioxide 28 mmol/L (22-29); Chloride 104 mmol/L (98-107); Glomerular Filtration Rate 77.9 mL/min (90-130); Glucose 88 mg/dL (65-115); Osmolality Calculated 288 mOsm/kg (285-295); Sodium 141 mmol/L (136-145)
[2019-10-23 09:25] LABS: Potassium 2.9 mmol/L (3.5-5.1)
--- NOTE | 2019-10-23 09:41 | PC.NURSE ---
received critical lab result. potassium is 2.9. Alerted Dr Tompkins and received orders.
[2019-10-23] MEDS: potassium chloride ER 10 mEq Tablet 40 MEQ PO (10:04)
--- NOTE | 2019-10-23 10:19 | PC.NURSE ---
while administering potassium, nurse dropped 1 tab of 10 meq. Wasted medication and called pharmacy to get one 10 meq tab made available.
--- NOTE | 2019-10-23 11:15 | PC.NURSE ---
Upon report it was relayed that patient was unable to afford home blood pressure medications and this may have contributed to her current hospital stay. Nurse spoke to case management regarding medication cost/assistance.
--- NOTE | 2019-10-23 11:51 | PC.RESP ---
Smoking Cessation information sent to patient.
--- NOTE | 2019-10-23 21:47 | PM.DCS ---
Discharge Providers Date of Admission: 10/22/19 01:28 Date of Discharge: October 23, 2019 Attending Provider at Admission: Octavia Mendiola MD Attending Provider at Discharge: Sylvain Tompkins Diagnoses at Discharge Discharge Diagnosis (1) Hypertensive urgency: Status: Chronic (2) Elevated brain natriuretic peptide (BNP) level: Status: Acute (3) Hypokalemia: Status: Acute (4) Generalized anxiety disorder: Status: Chronic (5) Post-traumatic stress disorder, chronic: Status: Chronic (6) Nicotine dependence, cigarettes, uncomplicated: Status: Chronic (7) Asthma: Status: Acute Reason for Visit Reason for Visit: cp, arm numbness, mouth tingling Hospital Course Hospital Course: Pleasant 44-year-old lady with history of hypertension was admitted due to hypertensive emergency with substernal chest pain, numbness and tingling in arms and legs, around her face, nausea, vomiting, with initial blood pressure 212/129, with hypokalemia. She had been taking clonidine and spironolactone previously, but ran out of spironolactone several months earlier. She received 30 mg hydralazine, 10 mg of amlodipine on presentation, as well as was treated with Ativan, fentanyl. Blood pressure still remained elevated, necessitating initiation of nitroglycerin drip. EKG with nonspecific changes. With nitroglycerin blood pressures improved. Troponin series remained normal. Chest pain and other complaints resolved. CTA on admission with groundglass pneumonitis. She was noted to have some mild wheezing, and endorse history of asthma. This appeared to respond well to inhaler, and her respiratory status remained stable without any issues on room air. COVID-19 rapid antigen with 97% sensitivity was negative. She did have persistent headache, and a noncontrast CT of the head was assessed, without acute findings. Hypokalemia was replaced. Amlodipine was continued, HCTZ and lisinopril were started. HCTZ later substituted with spironolactone due to hyperkalemia. Blood pressures improved, still episodic elevated blood pressure, but resolving with oral medications. On discharge she is continued on clonidine, although is recommended to possibly taper off long-term, as this medication may cause rebound hypertension, especially if there is a chance she may run out of it. She is aware of this. Spironolactone refill is provided, and she is also given prescription for lisinopril, as well as amlodipine on as needed basis in case of persistently elevated blood pressure. She is instructed to proceed to ER in case of any red flag symptoms. She is referred for additional evaluation by hypertension specialist given resistant hypertension, and hypokalemia. She is encouraged to continue follow-up with behavioral health care with regards to anxiety and depression. She is encouraged to quit smoking. Physical Exam Const: COMMON NORMALS: no acute distress and patient oriented x3 GENERAL APPEARANCE: cooperative and comfortable HENMT: COMMON NORMALS: oropharynx normal Neck/C-Spine: COMMON NORMALS: no JVD Resp: COMMON NORMALS: normal respiratory effort and clear to auscultation bilaterally AUSCULTATION: clear to auscultation bilaterally and no wheezes Cardio: COMMON NORMALS: no JVD, regular rhythm, S1 normal heart sound present, S2 normal heart sound present and No murmurs present (Cardio) RHYTHM: regular rhythm HEART SOUNDS: S1 normal heart sound present and S2 normal heart sound present GI: COMMON NORMALS: Normal to inspection, nondistended, normoactive bowel sounds present, Soft to palpation and non-tender PALPATION: Yes Soft to palpation Extremity: COMMON NORMALS: no joint enlargement and no pedal edema Neuro: COMMON NORMALS: patient oriented x3 and moves all extremities Skin: COMMON NORMALS: no rashes or lesions noted GENERAL SKIN EXAM: no rashes or lesions noted Discharge Data Data Completed and Pending: Completed Studies During Hospitalization Category Date Time Status CT angio chest PE protcl [id number] Urge nt Cat Scan 10/21/19 22:[address] head wo con* [id number] Routine Cat Scan 10/22/19 09:33 Completed XR chest 1V marian ble [id number] Stat Exams 10/21/19 15:29 Completed CV echo complete* [id number] Routine Ultrasound 10/22/19 Completed Labs from last 24 hours 10/23/19 10/23/19 08:26 08:26 WBC 7.7 RBC 4.29 Hgb 13.8 Hct 41.0 MCV 95.6 MCH 32.2 MCHC 33.7 RDW 14.2 Plt Count 294 MPV 9.1 Neut % (Auto) 47.2 Lymph % (Auto) 43.0 [place] % (Auto) 5.6 Eos % (Auto) 3.6 Baso % (Auto) 0.5 Neut # (Auto) 3.62 Lymph # (Auto) 3.3 [place] # (Auto) 0.4 Eos # (Auto) 0.3 Baso # (Auto) 0.0 Nucleated RBC % (a uto) 0 Nucleated RBCs # 0.0 Sodium 141 Potassium 2.9 L Chloride 104 Carbon Dioxide 28 Anion Gap 11.9 BUN 14 Creatinine 0.8 GFR Calculation 77.9 L Glucose 88 Calculated Osmolal ity 288 Calcium 8.9 Vitals: Last Vital Signs Temp 98.6 F 10/23/19 12:25 Pulse 70 10/23/19 13:43 Resp 18 10/23/19 13:43 BP 164/93 10/23/19 13:43 Pulse Ox 98 10/23/19 13:43 Discharge Plan Discharge Patient Disposition: Home Condition: Stable Prescriptions: New lisinopril 10 mg Tablet 10 mg PO DAILY Qty: 30 RF: 0 amlodipine 10 mg tablet 10 mg PO DAILY PRN (Reason: blood pressure) Qty: 20 RF: 0 albuterol sulfate 90 mcg/actuation aerosol powdr breath activated 2 inh INHALATION Q6H PRN (Reason: shortness of breath or wheezing) Qty: 1 RF: 0 atorvastatin 40 mg tablet 40 mg PO DAILY Qty: 30 RF: 0 Continued citalopram 40 mg tablet 40 mg PO DAILY RF: 0 hydroxyzine HCl 50 mg tablet 50 - 100 mg PO BEDTIME PRN (Reason: Anxiety) RF: 0 Abilify 5 mg tablet 5 mg PO DAILY RF: 0 trazodone 50 mg tablet 50 mg PO BEDTIME PRN (Reason: Insomnia) RF: 0 spironolactone 25 mg tablet 25 mg PO BID Qty: 60 RF: 0 clonidine HCl 0.2 mg tablet 0.2 mg PO TID Qty: 90 RF: 2 Discharge Orders: Discharge Order (Routine); Ordered 10/23/19 Ordered By: Sylvain Tompkins Referrals: [facility] [Other] - 4-7 days Glen Mcfadden MD [Referring] - 2 weeks (HTN) Discharge Diet: Cardiac Discharge Activity: Increase activity as tolerated Patient Instructions: Lisinopril (By mouth), Albuterol (By breathing), Amlodipine (By mouth), Atorvastatin (By mouth) Activity Restrictions/Additional Instructions: Please measure your blood pressure at home 3 times daily, record values. If blood pressure is elevated despite taking your scheduled medications, take a dose of 10 mg amlodipine if blood pressure is more than 180 systolic or more than 100 diastolic. If blood pressure remains persistently high, above 180/100, despite taking medications, please seek medical attention without delay. Please bring your blood pressure log to your primary care provider. Please see your primary care provider within a week, and have them follow-up with your potassium level. Referral is given to a kidney/blood pressure specialist for additional assessment due to high blood pressures and low potassium. As you are aware clonidine can cause rebound hypertension (very elevated blood pressure, higher than usual hypertension) if it is rapidly discontinued. If you may have difficulties obtaining this medication, it may be better to use something else dedicated intermodal truck driver if there is a risk of running out of the medicine. If there is this risk, please work with your primary care doctor to taper off clonidine and switch to something else. Discharge Date/Time: 10/23/19 14:25 Discharge Attestations Time Spent in Discharge Care*: greater than 30 min Quality Metrics Clinical Quality Measures During this hospital stay, did patient experience: None Coding Level of Care Code Acute Ice Cream Maker for Chg Fwd Diagnoses Hypertensive urgency I16.0 Elevated brain natriuretic peptide (BNP) level R79.89 Hypokalemia E87.6 Generalized anxiety disorder F41.1 Post-traumatic stress disorder, chronic F43.12 Nicotine dependence, cigarettes, uncomplicated F17.210 Asthma J45.909
== END 2019-10-23 14:25 | disposition home or self-care (01) | DRG 304 ==
LOC: ER 21:42 → ICU 10-22 01:48
PROVIDERS: Emergency Medicine; Family Medicine; Admitting Provider Hospitalist; Visit Provider Internal Medicine
DX: I16.0 Hypertensive urgency (principal); J18.9 Pneumonia, unspecified organism; F33.9 Major depressive disorder, recurrent, unspecified; F41.9 Anxiety disorder, unspecified; Z87.442 Personal history of urinary calculi; F43.12 Post-traumatic stress disorder, chronic; F17.210 Nicotine dependence, cigarettes, uncomplicated; I10 Essential (primary) hypertension; R79.89 Other specified abnormal findings of blood chemistry; E87.6 Hypokalemia; R51 Headache; J45.909 Unspecified asthma, uncomplicated; D17.79 Benign lipomatous neoplasm of other sites
CPT/HCPCS: 12345; 36415; 36600; 70450; 71045; 71275; 80048; 80051; 80053; 80061; 80306; 81001; 82803; 82810; 83690; 83735; 83880; 83986; 84100; 84132; 84484; 85025; 85378; 85730; 87426; 93005; 93306; 96375; 99284; J0360; J1630; J2060; J2405; J3010; J3480; J3490; Q9967

== ENCOUNTER 2020-02-11 12:06 | Emergency (ER) | payer OTHER, SELFPAY ==
[2020-02-11 12:12] VITALS: BP 223/149; PULSE 90; RESP 20; TEMP 36.9; O2SAT 97; BMI 26.5
[2020-02-11 12:15] VITALS: BP 188/112; PULSE 73; RESP 18; O2SAT 94
--- NOTE | 2020-02-11 12:34 | XRR_ITS ---
PROCEDURE INFORMATION: Exam: XR Chest, 1 View Exam date and time: 02/11/2020 12:35 PM Age: 44 years old Clinical indication: Cough and fever and shortness of breath; Additional info: Syncope TECHNIQUE: Imaging protocol: XR of the chest Views: 1 view. COMPARISON: CR XR chest 1V portable [id number] 10/21/2019 4:05 PM FINDINGS: Lungs: There is a small hazy infiltrate in the lower lateral aspect of the left lung which could represent a small developing pneumonia. The right lung is clear. Pleural space: Unremarkable. No pleural effusion. No pneumothorax. Heart/Mediastinum: Unremarkable. No cardiomegaly. Bones/joints: Unremarkable. XR/XR chest 1V portable [id number] IMPRESSION: Small hazy infiltrate in the left base suspicious for early pneumonia.
[2020-02-11] MEDS: sodium chloride 0.9% 500 ML 999 ML IV (12:48)
[2020-02-11] MEDS: ondansetron 2 mg/ML SDV 2 mL 4 MG IVP (12:49)
[2020-02-11 12:55] VITALS: O2SAT 95
[2020-02-11 12:55] LABS: Basophils # 0.1 10^3/uL (0.0-0.1); Basophils % 0.6 %; Eosinophils # 0.2 10^3/uL (0.0-0.8); Eosinophils % 2.5 %; Hematocrit 44.5 % (37.0-47.0); Hemoglobin 15.4 g/dL (11.5-15.3); Lymphocytes # 2.3 10^3/uL (0.8-4.8); Lymphocytes % 26.8 %; Mean Corpuscular HGB Conc 34.6 g/dL (30.0-36.0); Mean Corpuscular Hemoglobin 30.8 pg (28.0-34.0); Mean Platelet Volume 8.7 fL (7.4-10.4); Monocytes # 0.4 10^3/uL (0.2-0.9); Monocytes % 4.1 %; Neutrophils # 5.73 10^3/uL (1.8-7.7); Neutrophils % 65.8 %; Nucleated Red Blood Cells % 0 %; Platelet Count 320 10^3/cmm (130-400); Red Cell Distribution Width 13.5 % (12.1-15.1); White Blood Count 8.7 10^3/uL (4.0-10.0)
[2020-02-11 12:58] VITALS: BP 188/112; PULSE 80; RESP 18; O2SAT 95
[2020-02-11 13:09] LABS: Alanine Aminotransferase 20 U/L (0-33); Albumin Level 4.3 g/dL (3.5-5.2); Alkaline Phosphatase 96 IU/L (35-105); Anion Gap 15.5 (5-19); Aspartate Amino Transferase 17 U/L (0-32); Blood Urea Nitrogen 7 mg/dL (6-20); Calcium 9.2 mg/dL (8.5-10.5); Carbon Dioxide 27 mmol/L (22-29); Chloride 100 mmol/L (98-107); Creatinine Clr Calc Pharmacy 94.9662; Globulin 3.1 g/dL (1.3-4.6); Glomerular Filtration Rate 90.9 mL/min (90-130); Glucose 110 mg/dL (65-115); Lipase 15 U/L (13-60); Osmolality Calculated 289 mOsm/kg (285-295); Sodium 140 mmol/L (136-145); Total Bilirubin 0.5 mg/dL (0.15-1.2); Total Protein 7.4 g/dL (6.6-8.7)
--- NOTE | 2020-02-11 13:09 | ED_ITS ---
HPI - COVID General: Chief Complaint: COVID symptoms Stated Complaint: SOB, COUGH , FEVER, HEADACHE Time Seen by Provider: 02/11/20 12:11 Triage information: Has fever, cough or shortness of breath . No known COVID + exposure last 14 days History of Present Illness: HPI Narrative: 44-year-old female patient presents to the emergency department with Covid symptoms. She reports illness symptoms x1 to 2 days. She also reports out of blood pressure medication, does not have insurance and not able to afford primary care follow-up. Blood pressure was found to be elevated upon exam. She is requesting refill of blood pressure medication. Reports use of albuterol yesterday, did help with symptoms. Denies need for refill of albuterol. MD complaint: has COVID symptoms Prior covid testing: no COVID 19 common symptoms: positive chills, cough, productive cough, dyspnea, fatigue, body aches, headache(s), loss of sense of smell and/or taste, nasal congestion, nausea, vomiting and diarrhea; negative throat pain COVID 19 other sytmptoms: negative chest pain or confusion Onset (ago): day(s) (1-2) Severity: moderate Pertinent comorbid conditions: hypertension (reports out of BP medication) and COPD/respiratory disease (Asthma) Treatment prior to arrival: acetaminophen (but vomited up medication) and breathing treatments COVID Results: SARS-CoV-2 Antigen (Rapid) Negative (Negative) 10/22/19 01:33 10/22/19 SARS-CoV-2 RNA (RT-PCR) Pending 02/11/20 12:40 02/11/20 Review of Systems General: Reports: 10 or more systems reviewed and unremarkable except in HPI and below Const: Reports: chills, body aches, change in appetite, fatigue and malaise Eyes: Denies: blurry vision or eye redness ENMT: Reports: nasal congestion and post nasal drip; Denies: throat pain, odynophagia or dental pain Card: Reports: lightheadedness and dyspnea on exertion (with cough); Denies: chest pain, palpitations, irregular heart rhythm or orthopnea Resp: Reports: dyspnea, productive cough, wheezing and chest congestion; Denies: pain on inspiration GI: Reports: nausea, vomiting and diarrhea; Denies: abdominal pain, heartburn or GI cramping : Denies: difficulty voiding, dysuria, urinary urgency or urinary incontinence Musc: Denies: neck pain, back pain, joint pain, muscle cramps or muscle weakness Skin/Breast: Denies: rash, pruritus or skin tenderness Neuro: Reports: headache(s); Denies: numbness in extremities, difficulty walking, frequent falls, confusion or behavioral changes Psych: Denies: anxiety or depression Simon/Lymph: Denies: easy bruising PFSH ED PFSH: Medical History (Updated 02/11/20 @ 14:51 by WILDA Springer) Generalized anxiety disorder 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 Hx of nephrolithotomy with removal of calculi Hypertension Hypertensive crisis Major depressive disorder, recurrent, moderate Post-traumatic stress disorder, chronic Surgical History History of removal of ovarian cyst Hx of cholecystectomy Hx of hernia repair Hx of lithotripsy Family History Other Psychiatric illness Social History Smoking and tobacco status: current every day smoker cigarettes Years cigarett es smoked: 25 Quit status (tobacco): has tried quititng Number of times tried to quit tobacco: 5 Second hand smoke exposure: No Additional social history: Denies regular alcohol use Denies current drug use Female Reproductive History: Para: 0 Spontaneous abortions: Yes (all 6 pregnancies) Physical Exam Const: COMMON NORMALS: no acute distress (but appears not feeling well), patient oriented x3, healthy appearing and alert GENERAL APPEARANCE: c ooperative, well developed and well hydrated; not comfortable NUTRITIONAL APPEARANCE: thin ORIENTATION/CONSCIOUSNESS: Yes awake, Yes oriented to person, Yes oriented to place and Yes oriented to time HENMT: COMMON NORMALS: normocephalic, atraumatic, EAC's normal, Normal external nose present and moist oral mucous membranes HEAD & SCALP: normal to inspection, normocephalic and atraumatic FACE & SINUS: normal facial exam, face symmetric and sinus tenderness maxillary NOSE: Normal external nose present EXTERNAL AUDITORY CANAL: EAC's normal MOUTH: Normal oral and palatal mucosa present, lip normal and tongue normal THROAT: posterior oropharynx normal, tonsils normal, uvula midline and postnasal drainage Eye: COMMON NORMALS: Equal, round and reactive pupils present and EOMs intact bilaterally GENERAL EYE: appearance normal, both eyes and all related structures PUPIL: Yes Equal, round and reactive pupils present Neck/C-Spine: COMMON NORMALS: full ROM and no lymphadenopathy GENERAL: Yes normal visual inspection and Yes trachea midline CERVICAL SPINE: Yes cervical ROM normal, No pain with cervical ROM, No Cervical spine tenderness, No Paracervical muscle tenderness and No Trapezius muscle tenderness Lymph: LYMPHATIC: no lymphadenopathy noted Chest: COMMONS NORMALS: normal inspection of the chest and normal palpation of entire chest wall CHEST: Yes Symmetrical chest wall rise Resp: COMMON NORMALS: normal respiratory effort, No retractions, No use of accessory muscles and clear to auscultation bilaterally EFFORT & INSPECTION: Yes able to speak in complete sentences, No respiratory distress, No labored and Yes audible wheezes AUSCULTATION: clear to auscultation bilaterally, rhonchi, wheezes and diminished lung sounds bilateral in the lower lung still Cardio: COMMON NORMALS: regular rate, regular rhythm, S1 normal heart sound present, S2 normal heart sound present and Peripheral pulses 2+ throughout RATE: regular rate RHYTHM: regular rhythm HEART SOUNDS: S1 normal heart sound present and S2 normal heart sound present PERIPHERAL PULSES: Peripheral pulses 2+ throughout GI: COMMON NORMALS: Normal to inspection, nondistended, normoactive bowel sounds present and Soft to palpation INSPECTION: Yes normal to inspection, No Abdominal wall edema, No abdominal distension and No GI erythema present PALPATION: Yes Soft to palpation and Yes Tenderness to palpation present (GI) Details: other (generalized) : COMMON NORMALS: Yes no CVA tenderness BLADDER/KIDNEY EXAM: Yes no CVA tenderness Back/Pelvis: COMMON NORMALS: no CVA tenderness, thoracic and lumbar spine normal to inspection, no thoracic nor lumbar tenderness and thoraco-lumbar ROM normal Extremity: COMMON NORMALS: normal to inspection and capillary refill normal Neuro: COMMON NORMALS: patient oriented x3 and no focal motor deficits SENSORIUM/ORIENTATION: Yes alert, Yes oriented to person, Yes oriented to place and Yes oriented to time SPEECH: speech normal GAIT: Yes Normal gait present Psych: COMMON NORMALS: mental status grossly normal, Normal thought process present and cooperative ACTIVITY/MOTOR BEHAVIOR: Yes appropriate eye contact THOUGHT PROCESS: Normal thought process present Skin: COMMON NORMALS: no rashes or lesions noted and turgor normal GENERAL SKIN EXAM: no rashes or lesions noted and turgor normal Course ED course: 44-year-old female patient presents to the emergency department with cough congestion for 1 to 2 days. Left lower lobe pneumonia appreciated on chest x-ray. Oxygen saturation during her stay in the emergency department 96 to 100%. She remained hypertensive during her stay. Has been out of blood pressure medication, she was confused in regards to dosing of her lisinopril, previous prescription with 10 mg noted. Tylenol, hydrocodone Administered for discomfort. She reports feeling much better. Zofran alleviated nausea. Potassium was found to be low, potassium replaced, she states has not taken prescribed potassium at home. Reports unknown cause of hypokalemia, states ref erral to nephrology and endocrinology without known cause. Patient was instructed need to follow-up with her primary care this week without fail. director of career services consult provided to help with this need. She will need a repeat potassium drawn. She was advised of importance of monitoring her potassium. Patient signed AMA form regarding known HTN state with my concern patient could have embolic/hemorrhagic stroke or even due to uncontrolled blood pressure. She agrees to leave despite my warning. Advised to return to the emergency department in the event blood pressure is not controlled at home or if worsening signs and symptoms occur. Vital Signs: Vital signs: Vital Signs Temperature 98.9 F 02/11/20 15:55 Pulse Rate 79 02/11/20 15:55 Respiratory Rate 18 02/11/20 15:55 Blood Pressure 218/110 02/11/20 15:55 Pulse Oximetry 96 02/11/20 15:55 MDM - COVID Differential Diagnosis: Differential diagnosis: Likely COVID 19, influenza and pneumonia Lab Data: Labs: Lab Results 02/11/20 02/11/20 02/11/20 Range/Units 12:40 12:40 12:40 WBC 8.7 (4.0-10.0) 10^3/ uL RBC 5.00 (4.1-5.3) 10^6/u L Hgb 15.4 H (11.5-15.3) g/dL Hct 44.5 (37.0-47.0) % MCV 89.0 (81-99) fL MCH 30.8 (28.0-34.0) pg MCHC 34.6 (30.0-36.0) g/dL RDW 13.5 (12.1-15.1) % Plt Count 320 (130-400) 10^3/c mm MPV 8.7 (7.4-10.4) fL Neut % (Auto) 65.8 % Lymph % (Auto) 26.8 % [place] % (Auto) 4.1 % Eos % (Auto) 2.5 % Baso % (Auto) 0.6 % Neut # (Auto) 5.73 (1.8-7.7) 10^3/u L Lymph # (Auto) 2.3 (0.8-4.8) 10^3/u L [place] # (Auto) 0.4 (0.2-0.9) 10^3/u L Eos # (Auto) 0.2 (0.0-0.8) 10^3/u L Baso # (Auto) 0.1 (0.0-0.1) 10^3/u L Nucleated RBC % (a uto) 0 % Nucleated RBCs # 0.0 /100WBC Sodium 140 (136-145) mmol/L Potassium 2.5 L* (3.5-5.1) mmol/L Chloride 100 (98-107) mmol/L Carbon Dioxide 27 (22-29) mmol/L Anion Gap 15.5 (5-19) BUN 7 (6-20) mg/dL Creatinine 0.7 (0.5-0.9) mg/dL GFR Calculation 90.9 (90-130) mL/min Glucose 110 (65-115) mg/dL Calculated Osmolal ity 289 (285-295) mOsm/k g Calcium 9.2 (8.5-10.5) mg/dL Total Bilirubin 0.5 (0.15-1.2) mg/dL AST 17 (0-32) U/L ALT 20 (0-33) U/L Alkaline Phosphata se 96 (35-105) IU/L Total Protein 7.4 (6.6-8.7) g/dL Albumin 4.3 (3.5-5.2) g/dL Globulin 3.1 (1.3-4.6) g/dL Lipase 15 (13-60) U/L HCG, Qual (Negative) Influenza Type A A g Negative (Negative) Influenza Type B A g Negative (Negative) 02/11/20 Range/Units 12:40 WBC (4.0-10.0) 10^3/ uL RBC (4.1-5.3) 10^6/u L Hgb (11.5-15.3) g/dL Hct (37.0-47.0) % MCV (81-99) fL MCH (28.0-34.0) pg MCHC (30.0-36.0) g/dL RDW (12.1-15.1) % Plt Count (130-400) 10^3/c mm MPV (7.4-10.4) fL Neut % (Auto) % Lymph % (Auto) % [place] % (Auto) % Eos % (Auto) % Baso % (Auto) % Neut # (Auto) (1.8-7.7) 10^3/u L Lymph # (Auto) (0.8-4.8) 10^3/u L [place] # (Auto) (0.2-0.9) 10^3/u L Eos # (Auto) (0.0-0.8) 10^3/u L Baso # (Auto) (0.0-0.1) 10^3/u L Nucleated RBC % (a uto) % Nucleated RBCs # /100WBC Sodium (136-145) mmol/L Potassium (3.5-5.1) mmol/L Chloride (98-107) mmol/L Carbon Dioxide (22-29) mmol/L Anion Gap (5-19) BUN (6-20) mg/dL Creatinine (0.5-0.9) mg/dL GFR Calculation (90-130) mL/min Glucose (65-115) mg/dL Calculated Osmolal ity (285-295) mOsm/k g Calcium (8.5-10.5) mg/dL Total Bilirubin (0.15-1.2) mg/dL AST (0-32) U/L ALT (0-33) U/L Alkaline Phosphata se (35-105) IU/L Total Protein (6.6-8.7) g/dL Albumin (3.5-5.2) g/dL Globulin (1.3-4.6) g/dL Lipase (13-60) U/L HCG, Qual Negative (Negative) Influenza Type A A g (Negative) Influenza Type B A g (Negative) Imaging Data: CXR: Radiologist's impression: [address] [id number] XRay Report Signed Patient: Leann Monte #: [id number] : 1975Acct#:[id number] Age/Sex: 44 / FADM Date: 02/11/20 Loc: ERRoom/Bed: Attending Dr: Ordering Provider/Ordering MD: Ericka Flores Date of Service: 02/11/20 Procedure(s): XR chest 1V portable [id number] Accession Number(s): [id number] Report Number: [id number] PROCEDURE INFORMATION: Exam: XR Chest, 1 View Exam date and time: 02/11/2020 12:35 PM Age: 44 years old Clinical indication: Cough and fever and shortness of breath; Additional info: Syncope TECHNIQUE: Imaging protocol: XR of the chest Views: 1 view. COMPARISON: CR XR chest 1V portable [id number] 10/21/2019 4:05 PM FINDINGS: Lungs: There is a small hazy infiltrate in the lower lateral aspect of the left lung which could represent a small developing pneumonia. The right lung is clear. Pleural space: Unremarkable. No pleural effusion. No pneumothorax. Heart/Mediastinum: Unremarkable. No cardiomegaly. Bones/joints: Unremarkable. XR/XR chest 1V portable [id number] IMPRESSION: Small hazy infiltrate in the left base suspicious for early pneumonia. Dictated By:Luiz Kwan Signed By:Montrell Kwan Date/Time:02/11/20 1319 DD/ 1318 COVID Results: SARS-CoV-2 Antigen (Rapid) Negative (Negative) 10/22/19 01:33 10/22/19 SARS-CoV-2 RNA (RT-PCR) Pending 02/11/20 12:40 02/11/20 Discharge Plan Discharge Patient Disposition: Home Clinical Impression: Suspected severe acute respiratory syndrome coronavirus 2 (SARS-CoV-2) infection HTN (hypertension) Qualifiers: Hypertension type: essential hypertension Qualified Code(s): I10 - Essential (primary) hypertension Pneumonia Qualifiers: Pneumonia type: due to unspecified organism Laterality: left Lung location: lower lobe of lung Qualified Code(s): J18.9 - Pneumonia, unspecified organism Asthma Qualifiers: Asthma severity: mild Asthma persistence: intermittent Asthma complication type: with acute exacerbation Qualified Code(s): J45.21 - Mild intermittent asthma with (acute) exacerbation Condition: Stable Prescriptions: New doxycycline hyclate 100 mg capsule 100 mg PO BID 7 Days Qty: 14 RF: 0 prednisone 20 mg tablet 20 mg PO BID 5 Days Qty: 10 RF: 0 Zofran 4 mg tablet 4 mg PO Q4H Qty: 10 RF: 0 Continued spironolactone 25 mg tablet 25 mg PO BID Qty: 60 RF: 0 clonidine HCl 0.2 mg tablet 0.2 mg PO TID Qty: 90 RF: 2 lisinopril 10 mg Tablet 10 mg PO DAILY Qty: 30 RF: 0 albuterol sulfate 90 mcg/actuation aerosol powdr breath activated 2 inh INHALATION Q6H PRN (Reason: shortness of breath or wheezing) Qty: 1 RF: 0 Discontinued amlodipine 10 mg tablet 10 mg PO DAILY PRN (Reason: blood pressure) Qty: 20 RF: 0 No Action nicotine (polacrilex) 4 mg gum 4 mg buccal Q1H Qty: 110 RF: 2 nicotine 21 mg/24 hr patch 24 hour 1 patch transdermal Q24H Qty: 28 RF: 2 trazodone 50 mg tablet 50 mg PO BEDTIME PRN (Reason: Insomnia) Qty: 30 RF: 2 Abilify 5 mg tablet 5 mg PO DAILY Qty: 30 RF: 2 citalopram 40 mg tablet 40 mg PO DAILY Qty: 30 RF: 2 hydroxyzine HCl 50 mg tablet 50 - 100 mg PO BEDTIME PRN (Reason: Anxiety) Qty: 30 RF: 2 atorvastatin 40 mg tablet 40 mg PO DAILY Qty: 30 RF: 0 Discharge Orders: Discharge ED (Routine); Ordered 02/11/20 Ordered By: Ericka Flores Discharge Diet: Cardiac and Low Fat Discharge Activity: Limit activity as instructed Patient Instructions: Asthma (ED), Chronic Hypertension (ED), Pneumonia (ED) Activity Restrictions/Additional Instructions: Complete doxycycline until all gone, even if feeling better Take doxycycline and prednisone with food to avoid stomach upset 30-day supply of blood pressure medication has been provided, you are to follow- up with your primary care provider this week without fail to ensure you are improving Recommend to take blood pressure daily, take blood pressure 30 minutes at rest. Record and take readings to your primary care provider Return to the emergency department if you develop inability to breathe, difficulty catching her breath or chest pain. 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
[2020-02-11 13:20] VITALS: BP 188/112
[2020-02-11 13:20] LABS: Potassium 2.5 mmol/L (3.5-5.1)
[2020-02-11] MEDS: cloNIDine 0.1 mg Tablet 0.2 MG PO (13:20)
[2020-02-11] MEDS: acetaminophen 500 mg Tablet 1000 MG PO (13:20)
[2020-02-11] MEDS: potassium chloride ER 20 mEq Tablet 40 MEQ PO (13:33)
[2020-02-11 13:45] LABS: HCG, Serum Qual Negative (Negative)
[2020-02-11 13:48] LABS: Influenza A by IFA Negative (Negative); Influenza B by IFA Negative (Negative)
--- NOTE | 2020-02-11 14:30 | PC.NURSE ---
Ericka VALERI had ordered Hutchinson 5mg/325mg and Zofran 4 mg at 1318. It was not clear (on computer) that she had cancelled meds. I called Pharmacy 45 mins later asking why med was not released. Talked to Jesse the pharmacist. He looked at ordered and asked if she wanted both meds to be given PO ? I answered Yes. So he (the pharmacist) put the order in and released the med. I gave the meds. When I found Ericka TRAMMELL, told her about the meds and why it was given 45 mins late. She said she had Dc the meds unknown to me. After I explained that I called the Pharmacist and he had released the med and I gave it. Then she said she would Rewrite for the meds That is why there are more that one order for Hutchinson 5mg/325mg and Zofran 4 mg.
[2020-02-11] MEDS: doxycycline 100 mg Tablet 200 MG PO (15:02)
[2020-02-11] MEDS: predniSONE 20 mg Tablet 40 MG PO (15:03)
[2020-02-11] MEDS: spironolactone 25 mg Tablet PO (15:03)
[2020-02-11] MEDS: lisinopril 10 mg Tablet PO (15:05)
[2020-02-11 15:55] VITALS: BP 218/110; PULSE 79; RESP 18; TEMP 37.2; O2SAT 96
[2020-02-12 17:17] LABS: Quest SARS-CoV-2 RNA NOT DETECTED (NOT DETECTED)
--- NOTE | 2020-02-13 09:28 | PC.NURSE ---
pt called and notified of covid results
--- NOTE | 2020-02-14 12:23 | DCPLANNER ---
Addendum entered by Gabriella Hanson 02/16/20 14:32: Patient called supervisor case loading back, stated that she did want help in getting established with a primary care physician. program management manager called [facility], spoke with Kristan, going to get patient established at the clinic, but supervisor case loading was told that patient has several no shows on her account and can not be seen at the clinic at this time. program management manager tried call patient back at [phone] and was unable to speak with patient at this time, and unable to leave a voicemail. Original Note: program management manager had message to speak with patient about getting established with a primary care physician. program management manager called [phone] and was told this number was not reachable. program management manager was told that patient was not there, a message was left for patient to return case liner phone call.
== END 2020-02-11 15:57 | disposition home or self-care (01) ==
PROVIDERS: Emergency Provider Nurse Practitioner Family
DX: Z20.828 Contact with and (suspected) exposure to other viral communicable diseases (principal); I10 Essential (primary) hypertension; J18.9 Pneumonia, unspecified organism; J45.21 Mild intermittent asthma with (acute) exacerbation; F17.210 Nicotine dependence, cigarettes, uncomplicated
CPT/HCPCS: 12345; 71045; 80053; 83690; 84703; 85025; 87635; 87804; 96374; 96375; 99283; J2405; J7040; J7512

== ENCOUNTER 2020-04-25 11:09 | Inpatient (IN) | payer SELFPAY ==
[2020-04-25] VITALS (13 sets, daily range): BP systolic 160–260; BP diastolic 90–160; PULSE 62–112; RESP 12–20; TEMP 36.6; O2SAT 92–98; BMI 28.3
--- NOTE | 2020-04-25 11:32 | ECG_ITS ---
[facility] Test Date: 2020-04-25 Pat Name: Leann Monte Department: Room: Gender: Female Reading Efficiency Course Director: : 1975 Requested By: Mesfin Basurto Order Number: [id number] Reading MD: LASHA ANG Measurements Intervals [place] Rate: 78 P: 51 UT: 104 QRS: 32 QRSD: 93 T: 192 QT: 426 QTc: 487 Interpretive Statements SINUS RHYTHM WITH SHORT UT INTERVAL POSSIBLE LEFT ATRIAL ENLARGEMENT [-0.1mV P WAVE IN V1/V2] ST DEVIATION AND MODERATE T-WAVE ABNORMALITY, CONSIDER ANTEROLATERAL ISCHEMIA [-0.1+ mV T WAVE IN V3-V6] ST DEVIATION AND MODERATE T-WAVE ABNORMALITY, CONSIDER INFERIOR ISCHEMIA [-0.1+ mV T WAVE IN II/aVF] Compared to ECG 10/21/2019 22:03:52 Short UT interval now present T-wave abnormality still present Possible ischemia still present Electronically Signed On 04-25-2020 18:17:30 LUNCHROOM OPERATOR by LASHA ANG [id number] f
--- NOTE | 2020-04-25 11:32 | XR_ITS ---
WS: [id number] PORTABLE CHEST HISTORY: chest pain COMPARISON: 02/11/2020 Lungs are clear and well expanded. No pleural effusion or pneumothorax. Cardiac size: Normal. Mediastinum/Aorta: Normal mediastinum. No osseous abnormality seen. XR/XR chest 1V portable [id number] IMPRESSION: Unremarkable portable chest.
[2020-04-25 12:11] LABS: Basophils % 0.5 %; Eosinophils # 0.4 10^3/uL (0.0-0.8); Eosinophils % 4.3 %; Hemoglobin 15.5 g/dL (11.5-15.3); Lymphocytes # 2.7 10^3/uL (0.8-4.8); Lymphocytes % 32.8 %; Mean Corpuscular HGB Conc 34.4 g/dL (30.0-36.0); Mean Corpuscular Hemoglobin 31.3 pg (28.0-34.0); Mean Corpuscular Volume 90.7 fL (81-99); Monocytes # 0.5 10^3/uL (0.2-0.9); Neutrophils # 4.62 10^3/uL (1.8-7.7); Neutrophils % 56.2 %; Nucleated Red Blood Cells % 0 %; Platelet Count 312 10^3/cmm (130-400); Red Blood Count 4.96 10^6/uL (4.1-5.3); Red Cell Distribution Width 13.2 % (12.1-15.1); White Blood Count 8.2 10^3/uL (4.0-10.0)
[2020-04-25] MEDS: amlodipine 10 mg Tablet PO (12:16)
[2020-04-25] MEDS: cloNIDine 0.1 mg Tablet 0.2 MG PO (12:16)
[2020-04-25] MEDS: hyDRALAzine 20 mg/mL INJ 1 mL IVP (12:18)
[2020-04-25] MEDS: aspirin 81 mg Chew Tablet 324 MG PO (12:18)
--- NOTE | 2020-04-25 12:24 | ED_ITS ---
HPI - Chest Pain General: Chief Complaint: Chest Pain Stated Complaint: FLUNCUATING BP, PAIN/NUMBNESS ON R SIDE Time Seen by Provider: 04/25/20 11:27 History of Present Illness: HPI narrative: 44-year-old female presents emergency room with complaint of elevated blood pressure pain and numbness on her right side and some vague chest discomfort at times. She has a history of hypertension she is previously on clonidine lisinopril and spironolactone. She has been off of most of those for a month due to some logistical reasons surrounding insurance, and within the last few days has stopped taking clonidine.. Blood pressure has been continually increasing since then. MD complaint: chest discomfort Pertinent past history: other (HTN) Onset (ago): day(s) Timing of current episode: constant Onset: during rest Pain location: left chest Quality: heaviness Relieving factors: nothing Exacerbating factors: nothing Associated symptoms: Reports nausea, sense of impending doom and other (headache); Deny abdominal pain, diaphoresis, dyspnea, fever(s), leg edema, palpitations, syncope or vomiting Treatment prior to arrival: none Review of Systems Const: Denies: fever(s) or diaphoresis ENMT: Denies: throat pain, ear or mastoid pain, nasal discharge or nasal congestion Card: Denies: palpitations or syncope Resp: Denies: dyspnea GI: Reports: nausea; Denies: abdominal pain or vomiting : Denies: flank pain, difficulty voiding, dysuria, urinary frequency or urinary urgency Skin/Breast: Denies: rash or pruritus [facility] ED PFSH: Medical History Generalized anxiety disorder 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 Hx of nephrolithotomy with removal of calculi Hypertension Hypertensive crisis Major depressive disorder, recurrent, moderate Post-traumatic stress disorder, chronic Surgical History History of removal of ovarian cyst Hx of cholecystectomy Hx of hernia repair Hx of lithotripsy Family History Other Psychiatric illness Social History Smoking and tobacco status: current every day smoker cigarettes Years cigarettes smoked: 25 Quit status (tobacco): has tried quititng Number of times tried to quit tobacco: 5 Second hand smoke exposure: No Additional social history: Denies regular alcohol use Denies current drug use Female Reproductive History: Para: 0 Spontaneous abortions: Yes (all 6 pregnancies) Physical Exam Const: COMMON NORMALS: no acute distress GENERAL APPEARANCE: cooperative and comfortable ORIENTATION/CONSCIOUSNESS: Yes awake, Yes oriented to person, Yes oriented to place and Yes oriented to time HENMT: COMMON NORMALS: normocephalic, atraumatic, hearing grossly normal bilaterally, external ears normal, EAC's normal, TM's normal bilaterally, Normal nasal mucous membranes and turbinates present, moist oral mucous membranes and oropharynx normal HEAD & SCALP: normocephalic and atraumatic NOSE: Normal nasal mucous membranes and turbinates present EXTERNAL EAR: Yes external ears normal EXTERNAL AUDITORY CANAL: EAC's normal TYMPANIC MEMBRANE: TM's normal bilaterally Eye: COMMON NORMALS: Equal, round and reactive pupils present, EOMs intact bilaterally, conjunctivae normal and no scleral icterus CONJUNCTIVA: Yes conjunctivae normal PUPIL: Yes Equal, round and reactive pupils present Neck/C-Spine: COMMON NORMALS: full ROM, no lymphadenopathy, supple and no JVD Lymph: LYMPHATIC: no lymphadenopathy noted and no lymphedema noted Resp: COMMON NORMALS: normal respiratory effort, No retractions, No use of accessory muscles and clear to auscultation bilaterally AUSCULTATION: clear to auscultation bilaterally Cardio: COMMON NORMALS: no JVD, regular rate, regular rhythm and No murmurs present (Cardio) RATE: regular rate RHYTHM: regular rhythm GI: COMMON NORMALS: Soft to palpation and No hepatosplenomegaly present AUSCULTATION: Yes normoactive bowel sounds PALPATION: Yes Soft to palpation, No Tenderness to palpation present (GI), No Guarding due to palpation present (GI) and Yes No hepatosplenomegaly present Extremity: COMMON NORMALS: normal to inspection, capillary refill normal, no clubbing, cyanosis or edema, no calf tenderness and no pedal edema Neuro: SENSORIUM/ORIENTATION: Yes oriented to person, Yes oriented to place and Yes oriented to time Skin: COMMON NORMALS: no rashes or lesions noted GENERAL SKIN EXAM: no rashes or lesions noted Course Vital Signs: Vital signs: Vital Signs Temperature 97.9 F 04/25/20 11:25 Pulse Rate 112 H 04/25/20 18:19 Respiratory Rate 18 04/25/20 18:19 Blood Pressure 166/115 04/25/20 18:19 Pulse Oximetry 95 04/25/20 18:19 MDM - Chest Pain MDM Narrative: Medical decision making narrative: Multiple medications used to attempt to lower blood pressure also given potassium supplement. At this point I do not think we are going to be able to get her down in fact after several medications is actually been climbing. We we will start her on IV nicardipine drip admit her to hospital discussed with hospitalist reinstitute antihypertensive particularly the clonidine. Also gave Ativan to counteract clonidine withdrawal. Lab Data: Labs: Lab Results 04/25/20 04/25/20 04/25/20 Range/Units 11:58 11:58 11:58 WBC 8.2 (4.0-10.0) 10^3/ uL RBC 4.96 (4.1-5.3) 10^6/u L Hgb 15.5 H (11.5-15.3) g/dL Hct 45.0 (37.0-47.0) % MCV 90.7 (81-99) fL MCH 31.3 (28.0-34.0) pg MCHC 34.4 (30.0-36.0) g/dL RDW 13.2 (12.1-15.1) % Plt Count 312 (130-400) 10^3/c mm MPV 9.0 (7.4-10.4) fL Neut % (Auto) 56.2 % Lymph % (Auto) 32.8 % [place] % (Auto) 6.0 % Eos % (Auto) 4.3 % Baso % (Auto) 0.5 % Neut # (Auto) 4.62 (1.8-7.7) 10^3/u L Lymph # (Auto) 2.7 (0.8-4.8) 10^3/u L [place] # (Auto) 0.5 (0.2-0.9) 10^3/u L Eos # (Auto) 0.4 (0.0-0.8) 10^3/u L Baso # (Auto) 0.0 (0.0-0.1) 10^3/u L Nucleated RBC % (a uto) 0 % Nucleated RBCs # 0.0 /100WBC Sodium 140 (136-145) mmol/L Potassium 2.8 L* (3.5-5.1) mmol/L Chloride 101 (98-107) mmol/L Carbon Dioxide 26 (22-29) mmol/L Anion Gap 15.8 (5-19) BUN 8 (6-20) mg/dL Creatinine 0.7 (0.5-0.9) mg/dL GFR Calculation 90.9 (90-130) mL/min Glucose 83 (65-115) mg/dL Calculated Osmolal ity 287 (285-295) mOsm/k g Calcium 9.0 (8.5-10.5) mg/dL Magnesium (1.7-2.3) mg/dL Total Bilirubin 0.5 (0.15-1.2) mg/dL AST 12 (0-32) U/L ALT 13 (0-33) U/L Alkaline Phosphata se 78 (35-105) IU/L Troponin T Baselin e 6 (0-10) ng/L Troponin T 120 Min [place] (0-10) ng/L Delta Troponin T (0-10) ABS# Total Protein 7.0 (6.6-8.7) g/dL Albumin 4.3 (3.5-5.2) g/dL Globulin 2.7 (1.3-4.6) g/dL HCG, Qual (Negative) 04/25/20 04/25/20 04/25/20 Range/Units 11:58 11:58 14:35 WBC (4.0-10.0) 10^3/ uL RBC (4.1-5.3) 10^6/u L Hgb (11.5-15.3) g/dL Hct (37.0-47.0) % MCV (81-99) fL MCH (28.0-34.0) pg MCHC (30.0-36.0) g/dL RDW (12.1-15.1) % Plt Count (130-400) 10^3/c mm MPV (7.4-10.4) fL Neut % (Auto) % Lymph % (Auto) % [place] % (Auto) % Eos % (Auto) % Baso % (Auto) % Neut # (Auto) (1.8-7.7) 10^3/u L Lymph # (Auto) (0.8-4.8) 10^3/u L [place] # (Auto) (0.2-0.9) 10^3/u L Eos # (Auto) (0.0-0.8) 10^3/u L Baso # (Auto) (0.0-0.1) 10^3/u L Nucleated RBC % (a uto) % Nucleated RBCs # /100WBC Sodium (136-145) mmol/L Potassium (3.5-5.1) mmol/L Chloride (98-107) mmol/L Carbon Dioxide (22-29) mmol/L Anion Gap (5-19) BUN (6-20) mg/dL Creatinine (0.5-0.9) mg/dL GFR Calculation (90-130) mL/min Glucose (65-115) mg/dL Calculated Osmolal ity (285-295) mOsm/k g Calcium (8.5-10.5) mg/dL Magnesium 2.0 (1.7-2.3) mg/dL Total Bilirubin (0.15-1.2) mg/dL AST (0-32) U/L ALT (0-33) U/L Alkaline Phosphata se (35-105) IU/L Troponin T Baselin e (0-10) ng/L Troponin T 120 Min [place] 6.00 (0-10) ng/L Delta Troponin T 0 (0-10) ABS# Total Protein (6.6-8.7) g/dL Albumin (3.5-5.2) g/dL Globulin (1.3-4.6) g/dL HCG, Qual Negative (Negative) Discharge Plan Discharge Patient Disposition: Placed in Observation Admit Provider: Ant Chase Clinical Impression: Hypertension Condition: Stable Discharge Diet: Usual diet Discharge Activity: Limit activity as instructed Coding Level of Care Code ED Manager Delivery for Scotty Lewis
[2020-04-25 12:25] LABS: Alanine Aminotransferase 13 U/L (0-33); Albumin Level 4.3 g/dL (3.5-5.2); Alkaline Phosphatase 78 IU/L (35-105); Anion Gap 15.8 (5-19); Aspartate Amino Transferase 12 U/L (0-32); Blood Urea Nitrogen 8 mg/dL (6-20); Carbon Dioxide 26 mmol/L (22-29); Chloride 101 mmol/L (98-107); Globulin 2.7 g/dL (1.3-4.6); Glomerular Filtration Rate 90.9 mL/min (90-130); Glucose 83 mg/dL (65-115); Osmolality Calculated 287 mOsm/kg (285-295); Sodium 140 mmol/L (136-145); Total Bilirubin 0.5 mg/dL (0.15-1.2)
[2020-04-25 12:27] LABS: Troponin(5th) Baseline 6 ng/L (0-10)
[2020-04-25 12:33] LABS: Potassium 2.8 mmol/L (3.5-5.1)
[2020-04-25] MEDS: potassium chloride oral liq 20 mEq/15 mL UDC 40 MEQ PO ×2 (13:02→15:03)
--- NOTE | 2020-04-25 13:32 | ECG_ITS ---
[facility] Test Date: 2020-04-25 Pat Name: Leann Monte Department: Room: Gender: Female Ecology Teacher: : 1975 Requested By: Mesfin Basurto Order Number: [id number] Reading MD: LASHA ANG Measurements Intervals [place] Rate: 73 P: 57 [place]: 112 QRS: 41 QRSD: 99 T: 243 QT: 399 QTc: 440 Interpretive Statements SINUS RHYTHM WITH SHORT WA INTERVAL POSSIBLE LEFT ATRIAL ENLARGEMENT [-0.1mV P WAVE IN V1/V2] ST DEVIATION AND MODERATE T-WAVE ABNORMALITY, CONSIDER ANTEROLATERAL ISCHEMIA [-0.1+ mV T WAVE IN V3-V6] ST DEVIATION AND MODERATE T-WAVE ABNORMALITY, CONSIDER INFERIOR ISCHEMIA [-0.1+ mV T WAVE IN II/aVF] Compared to ECG 10/21/2019 22:03:52 Short [place] interval now present T-wave abnormality still present Possible ischemia still present Electronically Signed On 04-25-2020 18:19:32 ENVIRONMENTAL PERMITTING SPECIALIST by LASHA ANG [id number]
[2020-04-25] MEDS: enalaprilat 1.25 mg/mL Inj IVP (14:46)
[2020-04-25] MEDS: metoprolol tartrate 1 mg/1 mL SDV 5 mL 5 MG IV (14:51)
[2020-04-25] MEDS: LORazepam 2 mg/mL INJ 1 mL 1 MG IVP (15:02)
[2020-04-25 15:14] LABS: Troponin 5 2HR Delta 0 ABS# (0-10)
[2020-04-25] MEDS: metoprolol tartrate 50 mg Tablet PO (15:40)
--- NOTE | 2020-04-25 16:06 | CT_ITS ---
WS: [id number] CT HEAD NONCONTRAST HISTORY: accelerated HTN, headache TECHNIQUE: Contiguous axial imaging performed through the brain in 2.5 mm imaging. Bone and soft tiss ue windows. Sagittal and coronal reformats reviewed. All CT scans at [facility] use at ast one of these dose optimization techniques: automated exposure control; mA and/or kV adjustment pe r patient size (includes targeted exams where dose is matched to clinical indication); or iterative r econstruction. DLP: 885.62 mGy.cm COMPARISON: 10/22/2019 No acute intracranial hemorrhage, midline shift or mass effect. No atrophy or prior infarcts or herniation. Ventricles: Normal size with no hydrocephalus. Paranasal sinuses: As visualized are clear. Mastoid air cells: Well pneumatized. Calvarium and scalp: Skull is intact with no soft tissue edema or swelling. CT/CT head wo con* [id number] IMPRESSION: Negative head CT.
[2020-04-25] MEDS: LORazepam 2 mg/mL INJ 1 mL IVP (16:32)
[2020-04-25] MEDS: nitroglycerin 1 gm/inch oint Pkt 0.5 INCH TOPICAL (16:33)
[2020-04-25] MEDS: nicardipine 20 MG/200 ML PREMIX 50 MG IV (16:34)
--- NOTE | 2020-04-25 16:50 | PM.HP ---
Providers/Chief Complaint Admitting Physician: Ant Chase Chief Complaint: FLUNCUATING BP, PAIN/NUMBNESS ON R SIDE History of Present Illness Leann Monte is a 44 year old female with history of asthma and hypertension who presents to emergency room due to severely elevated blood pressure. She started experiencing headache, tingling in the arms, chest discomfort, flushing of the skin this morning. On presentation her blood pressure is at 200 range. Several medications were tried. She received Vasotec IV, clonidine p.o., metoprolol IV, nitroglycerin topical, lorazepam. However her blood pressure still remains extremely high. Currently it is at 220 range. She had a similar episode several months ago with very similar symptoms. At that time she was discharged home with adjusted blood pressure medications. She was doing fine for as long as she was on these medications. However she ran out of most of her medications several weeks ago. She was only taking clonidine recently. However she ran out of this pill 2 days ago. She does not have a primary care physician and healthcare insurance. She was unable to afford her medications. She denies any focal muscle weakness or sensory loss. No shortness of breath. No fever or chills. She reports anxiety and stress related to being in hospital which brings back bad memories. Her EKG in ER showed ST and T wave abnormalities. However these are unchanged from her previous EKG several months ago. Troponin was negative. CT of the head was negative. Review of Systems General: Reports: 10 or more systems reviewed and unremarkable except in HPI and below Medications/Allergies Home Medications Medication Instructions Recorded Confirmed Last Taken Type albuterol sulfate 2 inh INHALATION Q6H PRN #1 each 10/23/19 04/25/20 Unknown Rx amlodipine 10 mg PO DAILY #30 tab 04/25/20 Unknown Rx aripiprazole [Abilify] 5 mg PO DAILY@0704/25/20 04/25/20 04/25/20 History atorvastatin 40 mg PO DAILY@69904/25/20 04/25/20 Unknown History citalopram 40 mg PO DAILY@0704/25/20 04/25/20 04/25/20 History clonidine HCl 0.2 mg PO TID #90 tab 04/25/20 Unknown Rx hydroxyzine HCl 50 - 100 mg PO BEDTIME@2200 PRN 0204/25/20 04/24/20 History lisinopril 10 mg PO DAILY #30 tab 04/25/20 Unknown Rx spironolactone 25 mg PO DAILY #90 tab 04/25/20 Unknown Rx trazodone 50 mg PO BEDTIME@2200 PRN 04/25/20 04/25/20 04/24/20 History Allergies Allergy/AdvReac Type Severity Reaction Status Date / Time Penicillins Allergy Severe Anaphylaxis Verified 04/25/20 11:29 morphine Allergy Intermediate ADR-Vomitin Verified 04/25/20 11:29 g naproxen Allergy Intermediate ADR-Vomitin Verified 04/25/20 11:29 g EGGS AdvReac Severe N & V, Uncoded 04/25/20 11:29 Stomach pain, Throat swells shut flu shot AdvReac Severe N & V, Uncoded 04/25/20 11:29 Stomach pain, Throat swells shut nuts AdvReac Severe Vomiting & Uncoded 04/25/20 11:29 throat swells PFSH Acute PFSH: Medical History (Updated 04/25/20 @ 15:39 by Mesfin Garcia DO) Generalized anxiety disorder 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 Hx of nephrolithotomy with removal of calculi Hypertension Hypertensive crisis Major depressive disorder, recurrent, moderate Post-traumatic stress disorder, chronic Surgical History History of removal of ovarian cyst Hx of cholecystectomy Hx of hernia repair Hx of lithotripsy Family History Other Psychiatric illness Social History Smoking and tobacco status: current every day smoker cigarettes Years cigarettes smoked: 25 Quit status (tobacco): has tried quititng Number of times tried to quit tobacco: 5 Second hand smoke exposure: No Additional social history: Denies regular alcohol use Denies current drug use Female Reproductive History: Para: 0 Spontaneous abortions: Yes (all 6 pregnancies) Vitals/I&O/Wt Last Vital Signs Temp 97.9 F 04/25/20 11:25 Pulse 70 04/25/20 16:36 Resp 17 04/25/20 16:36 BP 206/121 04/25/20 16:36 Pulse Ox 98 04/25/20 16:36 Weight last 48 hrs Weight 72.575 kg Physical Exam Narrative: EXAM NARRATIVE: The patient is awake alert oriented. Anxious and crying. No other acute distress. Mood and affect are appropriate. Responses are adequate. Skin is warm and dry. Moist mucous membranes. Eyes PERRL, extraocular muscles are intact Normal speech. Cranial nerves II through XII are grossly intact Neck supple. No JVD Lungs clear to auscultation bilaterally. No respiratory distress Heart S1, S2, regular rhythm and rate Abdomen soft, nontender, bowel sounds are present Extremities no edema cyanosis or calf tenderness bilaterally Neuro examination is nonfocal. Data : 04/25/20 11:58 04/25/20 11:58 Other Labs: Laboratory Results WBC 8.2 10^3/uL (4.0-10.0) 04/25/20 11:58 RBC 4.96 10^6/uL (4.1-5.3) 04/25/20 11:58 Hgb 15.5 g/dL (11.5-15.3) H 04/25/20 11:58 Hct 45.0 % (37.0-47.0) 04/25/20 11:58 MCV 90.7 fL (81-99) 04/25/20 11:58 MCH 31.3 pg (28.0-34.0) 04/25/20 11:58 MCHC 34.4 g/dL (30.0-36.0) 04/25/20 11:58 RDW 13.2 % (12.1-15.1) 04/25/20 11:58 Plt Count 312 10^3/cmm (130-400) 04/25/20 11:58 MPV 9.0 fL (7.4-10.4) 04/25/20 11:58 Neut % (Auto) 56.2 % 04/25/20 11:58 Lymph % (Auto) 32.8 % 04/25/20 11:58 [place] % (Auto) 6.0 % 04/25/20 11:58 Eos % (Auto) 4.3 % 04/25/20 11:58 Baso % (Auto) 0.5 % 04/25/20 11:58 Neut # (Auto) 4.62 10^3/uL (1.8-7.7) 04/25/20 11:58 Lymph # (Auto) 2.7 10^3/uL (0.8-4.8) 04/25/20 11:58 [place] # (Auto) 0.5 10^3/uL (0.2-0.9) 04/25/20 11:58 Eos # (Auto) 0.4 10^3/uL (0.0-0.8) 04/25/20 11:58 Baso # (Auto) 0.0 10^3/uL (0.0-0.1) 04/25/20 11:58 Nucleated RBC % (auto) 0 % 04/25/20 11:58 Nucleated RBCs # 0.0 /100WBC 04/25/20 11:58 Sodium 140 mmol/L (136-145) 04/25/20 11:58 Potassium 2.8 mmol/L (3.5-5.1) L* 04/25/20 11:58 Chloride 101 mmol/L (98-107) 04/25/20 11:58 Carbon Dioxide 26 mmol/L (22-29) 04/25/20 11:58 Anion Gap 15.8 (5-19) 04/25/20 11:58 BUN 8 mg/dL (6-20) 04/25/20 11:58 Creatinine 0.7 mg/dL (0.5-0.9) 04/25/20 11:58 GFR Calculation 90.9 mL/min (90-130) 04/25/20 11:58 Glucose 83 mg/dL (65-115) 04/25/20 11:58 Calculated Osmolality 287 mOsm/kg (285-295) 04/25/20 11:58 Calcium 9.0 mg/dL (8.5-10.5) 04/25/20 11:58 Total Bilirubin 0.5 mg/dL (0.15-1.2) 04/25/20 11:58 AST 12 U/L (0-32) 04/25/20 11:58 ALT 13 U/L (0-33) 04/25/20 11:58 Alkaline Phosphatase 78 IU/L (35-105) 04/25/20 11:58 Troponin T Baseline 6 ng/L (0-10) 04/25/20 11:58 Troponin T 120 Minute 6.00 ng/L (0-10) 04/25/20 14:35 Delta Troponin T 0 ABS# (0-10) 04/25/20 14:35 Total Protein 7.0 g/dL (6.6-8.7) 04/25/20 11:58 Albumin 4.3 g/dL (3.5-5.2) 04/25/20 11:58 Globulin 2.7 g/dL (1.3-4.6) 04/25/20 11:58 Impressions Chest X-Ray 04/25/20 11:32 IMPRESSION: Unremarkable portable chest. Head CT 04/25/20 16:06 IMPRESSION: Negative head CT. A&P Additional A&P Information Hypertensive urgency due to noncompliance and clonidine related to rebound hypertension. Probably anxiety and stress are contributing as well. Discussed with the ER physician. Will start nicardipine drip. Will wait for an ICU bed. Will gradually resume her home medications. Clonidine is ordered. Chest discomfort. Related to #1. However there is no evidence of end organ damage yet. We will try to stabilize her blood pressure as soon as possible. Headache and tingling in the extremities. Related to #1. Anxiety. Will start as needed lorazepam. We will resume her home medication. Asthma. Stable. Evidence of exacerbation. Hypokalemia. Replaced in ER. We will recheck it again later today. Will replace again if necessary. Will recheck in the morning as well. Also will check her magnesium level and replace it if necessary. DVT prophylaxis. Teds and SCDs. No anticoagulation due to malignant hypertension and risk of intracranial bleeding. CODE STATUS. The patient wants to be full code. The plan of care was discussed with the patient. She verbalized understanding and agreement. Her significant other is at the bedside. He is also voicing understanding and satisfaction with the conversation. Attestations Medical Necessity Statement*: The patient is being admitted due to pretension to ICU. Requires IV blood pressure medications. High risk for associated endorgan damage or complications. Expected to need more than 2 midnights in the hospital. Coding Level of Care Code Acute Web Developer Programmer for Scotty Lewis
[2020-04-25 17:19] LABS: HCG, Serum Qual Negative (Negative)
--- NOTE | 2020-04-25 17:32 | ECG_ITS ---
[facility] Test Date: 2020-04-25 Pat Name: Leann Monte Department: Room: 112 Gender: Female Stable Manager: : 1975 Requested By: Mesfin Basurto Order Number: [id number] Nelly MD: Mandy Hanson M.D. Measurements Intervals [place] Rate: 98 P: 59 AL: 132 QRS: 46 QRSD: 92 T: 187 QT: 337 QTc: 431 Interpretive Statements SINUS RHYTHM POSSIBLE LEFT ATRIAL ENLARGEMENT [-0.1mV P WAVE IN V1/V2] ST DEVIATION AND MODERATE T-WAVE ABNORMALITY, CONSIDER ANTEROLATERAL ISCHEMIA [-0.1+ mV T WAVE IN V3-V6] ST DEVIATION AND MODERATE T-WAVE ABNORMALITY, CONSIDER INFERIOR ISCHEMIA [-0.1+ mV T WAVE IN II/aVF] Compared to ECG 04/25/2020 12:30:32 Short [place] interval no longer present T-wave abnormality still present Possible ischemia still present Electronically Signed On 04-26-2020 16:09:29 DIRECTOR AIRPORT OPERATIONS by Mandy Hanson M.D. [id number]
[2020-04-25] MEDS: lisinopril 10 mg Tablet PO (18:15)
[2020-04-25] MEDS: sodium chlor 0.9% + KCl 20 mEq 20 MEQ/1,000 ML BAG 75 MEQ IV (18:17)
--- NOTE | 2020-04-25 18:22 | PC.NURSE ---
EKG done at 1817 and shown to ER doctor
[2020-04-25] MEDS: nicardipine 20 MG/200 ML PREMIX 125 MG IV (18:40)
[2020-04-25 18:45] LABS: Troponin 5 6HR Delta 0 ng/L (0-12)
--- NOTE | 2020-04-25 20:22 | PC.NURSE ---
pt tearful and stating that she needed to leave AMA, stating I need to leave because my mother is having stroke symptoms , Dr Thompson notified who came to see pt, pt was educated on the risk of leaving while her blood pressure was high, pt signed AMA form, IV was removed and pt walked out
--- NOTE | 2020-04-25 20:23 | PM.EVENT ---
Event Note Event Note: At the start of my shift I was notified that patient who was admitted earlier today by the day hospitalist is wanting to leave AMA. I talked with the patient in order to know her better, she is concerned that her mother is having a stroke at home and no one would take care of her dogs. I tried to negotiate with her give her options alcohol ambulance have her mother come to our ER so we could help her well she herself gets medical management for hypertensive urgency. She told the nurses that her son here in the hospital last Wednesday she is not comfortable staying here, she has been very emotional since the time of admission. I talked with her twice she is adamant about leaving she was explained all the risk factors including stroke, [place] and . Nurses notified. Right now her blood pressure is 166/115 mmHg on Cardene drip. Discharge note to be done by Dr. Gomez
--- NOTE | 2020-04-28 17:41 | PM.DCS ---
Discharge Providers Date of Admission: 04/25/20 15:46 Date of Discharge: April 25, 2020 Attending Provider at Admission: Ant Chase Attending Provider at Discharge: Ant Chase Reason for Visit Reason for Visit: FLUNCUATING BP, PAIN/NUMBNESS ON R SIDE Hospital Course Hospital Course pt left AMA Discharge Data Data Completed and Pending: Completed Studies During Hospitalization Category Date Time Status CT head wo con* [id number] Stat Cat Scan 04/25/20 16:06 Completed XR chest 1V marian ble [id number] Stat Exams 04/25/20 11:32 Completed Vitals: Last Vital Signs Temp 97.9 F 04/25/20 11:25 Pulse 112 H 04/25/20 18:19 Resp 18 04/25/20 18:19 BP 166/115 04/25/20 18:19 Pulse Ox 95 04/25/20 18:19 Discharge Plan Discharge Patient Disposition: Home Condition: Stable Prescriptions: New amlodipine 10 mg tablet 10 mg PO DAILY Qty: 30 RF: 0 clonidine HCl 0.2 mg tablet 0.2 mg PO TID Qty: 90 RF: 0 spironolactone 50 mg tablet 25 mg PO DAILY Qty: 90 RF: 0 lisinopril 10 mg tablet 10 mg PO DAILY Qty: 30 RF: 0 Discontinued spironolactone 25 mg tablet 25 mg PO BID@0700,1900 RF: 0 clonidine HCl 0.2 mg tablet 0.2 mg PO TID@07,12,17 RF: 0 lisinopril 10 mg tablet 10 mg PO DAILY@0700 RF: 0 No Action albuterol sulfate 90 mcg/actuation aerosol powdr breath activated 2 inh INHALATION Q6H PRN (Reason: shortness of breath or wheezing) Qty: 1 RF: 0 atorvastatin 40 mg tablet 40 mg PO DAILY@0700 RF: 0 citalopram 40 mg tablet 40 mg PO DAILY@0700 RF: 0 trazodone 50 mg tablet 50 mg PO BEDTIME@2200 PRN (Reason: Insomnia) RF: 0 hydroxyzine HCl 50 mg tablet 50 - 100 mg PO BEDTIME@2200 PRN (Reason: Anxiety) RF: 0 Abilify 5 mg tablet 5 mg PO DAILY@0700 RF: 0 Discharge Diet: Usual diet Discharge Activity: Limit activity as instructed Patient Instructions: Opioid Safety Activity Restrictions/Additional Instructions: 30 days of blood pressure medicines given in your discharge instructions. Also added amlodipine 10 mg daily. Case management will assist you in establishing with a primary care physician. Discharge Attestations Time Spent in Discharge Care*: other Quality Metrics Clinical Quality Measures During this hospital stay, did patient experience: None Coding Level of Care Code Acute Bookkeeping Service Sales Agent for Scotty Lewis
== END 2020-04-25 20:15 | disposition home or self-care (01) | DRG 305 ==
LOC: ER 16:11 → CSU 19:06 → MEDSURG 19:06
PROVIDERS: Admitting Provider Internal Medicine; Emergency Provider Family Medicine; Visit Provider Internal Medicine
DX: I16.0 Hypertensive urgency (principal); J45.901 Unspecified asthma with (acute) exacerbation; F33.9 Major depressive disorder, recurrent, unspecified; I10 Essential (primary) hypertension; T46.5X6A Underdosing of other antihypertensive drugs, initial encounter; Z91.120 Patient's intentional underdosing of medication regimen due to financial hardship; F41.1 Generalized anxiety disorder; Z87.442 Personal history of urinary calculi; F43.12 Post-traumatic stress disorder, chronic; F17.210 Nicotine dependence, cigarettes, uncomplicated; E87.6 Hypokalemia; Z79.51 Long term (current) use of inhaled steroids
CPT/HCPCS: 70450; 71045; 80053; 83735; 84484; 84703; 85025; 93005; 96374; 96375; 99285; J0360; J2060; J3490

== ENCOUNTER → 2020-11-04 11:41 | Outpatient (BNVA) | payer OTHER, SELFPAY | PROVIDERS: PCP General Practice; Visit Provider Nurse Practitioner Family | DX: Z20.822 Contact with and (suspected) exposure to COVID-19 (principal); J06.9 Acute upper respiratory infection, unspecified | CPT/HCPCS: 87635 ==

== ENCOUNTER 2020-11-09 03:08 | Emergency (ER) | payer SELFPAY ==
[2020-11-09 03:15] VITALS: BP 217/141; PULSE 90; RESP 16; TEMP 36.8; O2SAT 95; BMI 27.4
--- NOTE | 2020-11-09 04:15 | XRR_ITS ---
PROCEDURE INFORMATION: Exam: XR Chest Exam date and time: 11/09/2020 4:15 AM Age: 45 years old Clinical indication: Shortness of breath; Chest pressure; Patient HX: Chest pain with SOB. ; Additional info: Cp TECHNIQUE: Imaging protocol: XR of the chest. Views: 1 view. COMPARISON: CR XR chest 1V portable [id number] 04/25/2020 11:40 AM FINDINGS: Lungs: Unremarkable. No consolidation. Pleural spaces: Unremarkable. No pleural effusion. No pneumothorax. Heart/Mediastinum: Unremarkable. No cardiomegaly. Bones/joints: Unremarkable. XR/XR chest 1V portable [id number] IMPRESSION: No acute findings.
--- NOTE | 2020-11-09 04:16 | ECG_ITS ---
[facility] Test Date: 2020-11-09 Pat Name: Leann Monte Department: Room: Gender: Female Rn Flight: : 1975 Requested By: Paul Quintana Order Number: [id number] Reading MD: LASHA ANG Measurements Intervals [place] Rate: 95 P: 61 NE: 156 QRS: 54 QRSD: 98 T: 193 QT: 368 QTc: 464 Interpretive Statements SINUS RHYTHM ST DEVIATION AND MODERATE T-WAVE ABNORMALITY, CONSIDER LATERAL ISCHEMIA [-0.1+ mV T-WAVE IN I/aVL/V5/V6] ST DEVIATION AND MODERATE T-WAVE ABNORMALITY, CONSIDER INFERIOR ISCHEMIA [-0.1+ mV T-WAVE IN II/aVF] Compared to ECG 04/25/2020 18:18:00 No significant changes Electronically Signed On 11-09-2020 20:15:32 CDT by LASHA ANG [id number]
[2020-11-09 04:31] VITALS: RESP 20
[2020-11-09] MEDS: fentaNYL 50 mcg/mL INJ 2mL 75 MCG IVP (04:31)
[2020-11-09] MEDS: nitroglycerin 1 gm/inch oint Pkt 2 INCH TOPICAL (04:32)
[2020-11-09] MEDS: ondansetron 2 mg/ML SDV 2 mL 4 MG IVP (04:32)
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
[2020-11-09 04:50] VITALS: BP 220/110; PULSE 110; RESP 18; O2SAT 97
[2020-11-09 05:12] LABS: Basophils % 0.5 %; Eosinophils # 0.4 10^3/uL (0.0-0.8); Eosinophils % 4.6 %; Hematocrit 42.4 % (37.0-47.0); Hemoglobin 14.3 g/dL (11.5-15.3); Lymphocytes # 2.9 10^3/uL (0.8-4.8); Lymphocytes % 37.9 %; Mean Corpuscular HGB Conc 33.7 g/dL (30.0-36.0); Mean Corpuscular Hemoglobin 32.4 pg (28.0-34.0); Mean Corpuscular Volume 96.1 fl (81-99); Mean Platelet Volume 8.9 fL (7.4-10.4); Monocytes # 0.6 10^3/uL (0.2-0.9); Monocytes % 7.2 %; Neutrophils # 3.77 10^3/uL (1.8-7.7); Neutrophils % 49.5 %; Nucleated Red Blood Cells % 0 %; Platelet Count 291 10^3/cmm (130-400); Red Blood Count 4.41 10^6/uL (4.1-5.3); White Blood Count 7.6 10^3/uL (4.0-10.0)
[2020-11-09 05:20] VITALS: BP 200/104; PULSE 97; RESP 18; O2SAT 97
[2020-11-09] MEDS: labetalol 5 mg/mL SDV 20mL 20 MG IVP (05:27)
[2020-11-09] MEDS: lisinopril 10 mg Tablet PO (05:27)
[2020-11-09] MEDS: amlodipine 10 mg Tablet PO (05:27)
[2020-11-09 05:34] LABS: Troponin(5th) Baseline 6 ng/L (0-10)
[2020-11-09 05:40] LABS: NT Pro B Type Natriuretic Pept 328 pg/mL (0-125); Procalcitonin 0.07 ng/mL (0-0.5)
[2020-11-09 05:41] LABS: D Dimer 0.29 ug/mIFEU (0-0.59)
[2020-11-09 05:52] LABS: Alanine Aminotransferase 17 U/L (0-33); Albumin Level 4.1 g/dL (3.5-5.2); Alkaline Phosphatase 97 IU/L (35-105); Anion Gap 16.2 (5-19); Aspartate Amino Transferase 15 U/L (0-32); Blood Urea Nitrogen 7 mg/dL (6-20); C Reactive Protein 3.2 mg/L (0.0-4.9); Calcium 8.8 mg/dL (8.5-10.5); Carbon Dioxide 26 mmol/L (22-29); Chloride 102 mmol/L (98-107); Globulin 2.3 g/dL (1.3-4.6); Glomerular Filtration Rate 90.5 mL/min (90-130); Glucose 84 mg/dL (65-115); Osmolality Calculated 289 mOsm/kg (285-295); Potassium 3.2 mmol/L (3.5-5.1); Sodium 141 mmol/L (136-145); Total Bilirubin 0.2 mg/dL (0.15-1.2); Total Protein 6.4 g/dL (6.6-8.7)
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
[2020-11-09 06:24] LABS: SARS Covid-2 Antigen Negative (Negative)
[2020-11-09 06:25] VITALS: BP 234/110
[2020-11-09] MEDS: cloNIDine 0.1 mg Tablet 0.2 MG PO (06:25)
[2020-11-09] MEDS: LORazepam 2 mg/mL INJ 1 mL 1 MG IVP (06:25)
[2020-11-09 08:49] VITALS: BP 155/101
== END 2020-11-09 08:50 | disposition home or self-care (01) ==
PROVIDERS: Emergency Provider Emergency Medicine; PCP General Practice
DX: J20.8 Acute bronchitis due to other specified organisms (principal); I16.0 Hypertensive urgency; I10 Essential (primary) hypertension; F17.210 Nicotine dependence, cigarettes, uncomplicated; Z20.822 Contact with and (suspected) exposure to COVID-19
CPT/HCPCS: 71045; 80053; 83880; 84145; 84484; 85025; 85378; 86140; 87426; 93005; 96374; 96375; 99284; J2060; J2405; J3010; J3490

== ENCOUNTER 2021-01-18 10:20 | Inpatient (IN) | payer SELFPAY ==
[2021-01-18] VITALS (22 sets, daily range): BP systolic 122–236; BP diastolic 80–117; PULSE 59–88; RESP 14–23; O2SAT 92–100; BMI 27.4
--- NOTE | 2021-01-18 10:35 | ED_ITS ---
Documented by User: Nick Gilbert MD 01/18/21 18:12 HPI - Chest Pain General: Chief Complaint: Chest Pain Stated Complaint: Chest Pain, SOB, Pain down left leg Time Seen by Provider: 01/18/21 10:34 History of Present Illness: HPI narrative: 45-year-old female presents due to chest pain and left thigh pain. States that both started this morning. Chest pain is nonexertional nonpleuritic does not radiate to the back. Chest pain itself does not radiate into the leg. Denies any fever cough or chills. Denies any nausea or vomiting. Denies any drug use. Denies any focal numbness weakness or tingling. Denies rash. Denies back pain or abdominal pain. Review of Systems Narrative: - CONSTITUTIONAL: Denies weight loss, fever and chills. - HEENT: Denies changes in vision and hearing. - RESPIRATORY: Endorses shortness of breath - CV: As above - GI: Denies abdominal pain, nausea, vomiting and diarrhea. - : Denies dysuria and urinary frequency. - MSK: joint pain. - SKIN: Denies rash and pruritus. - NEUROLOGICAL: Denies headache, weakness, numbness and syncope. 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 Hx of nephrolithotomy with removal of calculi Hypertension Hypertensive crisis Major depressive disorder, recurrent, moderate Post-traumatic stress disorder, chronic Psychiatric care Surgical History History of removal of ovarian cyst Hx of cholecystectomy Hx of hernia repair Hx of lithotripsy Family History Other Psychiatric illness Social History Smoking and tobacco status: current every day smoker cigarettes Years cigarettes smoked: 25 Quit status (tobacco): has tried quititng Number of times tried to quit tobacco: 5 Second hand smoke exposure: No Additional social history: Denies regular alcohol use Denies current drug use Female Reproductive History: Para: 0 Spontaneous abortions: Yes (all 6 pregnancies) Physical Exam Narrative: EXAM NARRATIVE: - GENERAL: Alert and oriented x 3. No acute distress. Well-nourished. - EYES: EOMI. Anicteric. - HENT: Atraumatic, no C-spine tenderness. Moist mucous membranes. No scleral icterus. No cervical lymphadenopathy. - LUNGS: Clear to auscultation bilaterally. No accessory muscle use. Equal lung sounds bilaterally. No respiratory distress. - CARDIOVASCULAR: Regular rate and rhythm. No murmur. No JVD. - ABDOMEN: Soft, non-tender and non-distended. Negative CVA tenderness bilate rally, no rebound or guarding, negative Horn sign. No palpable masses. - EXTREMITIES: No edema. Mild tenderness in the left thigh. Extremities otherwise neurovascularly intact. No tenderness over the hip or knee. - SKIN: No rashes or lesions. Warm. - NEUROLOGIC: No meningismus or focal neurological deficits. CN II-XII grossly intact. - PSYCHIATRIC: Cooperative. Appropriate mood and affect. Course Vital Signs: Vital signs: Vital Signs Pulse Rate 66 01/18/21 18:24 Respiratory Rate 16 01/18/21 18:00 Blood Pressure 230/110 01/18/21 18:00 Pulse Oximetry 98 01/18/21 18:00 MDM - Chest Pain MDM Narrative: Medical decision making narrative: 45-year-old presents with chest pain. Physical exam unremarkable. She is hemodynamically stable afebrile nontoxic-appearing. EKG does not reveal any sign of acute ischemic change. Second EKG is not changing. Troponins and D-dimer also unremarkable. Lab work is unremarkable. However patient was found to be very hypertensive with a systolic in the mid to low 200s. She remained very hypertensive despite multiple doses of labetalol, clonidine, enalapril, home lisinopril and spironolactone. Patient also states that she is anxious so was given Vistaril and Ativan but despite this blood pressure remains very elevated. Remainder of lab work and imaging reviewed. Patient signed out to Dr. eDutsch. Lab Data: Labs: Lab Results 01/18/21 01/18/21 01/18/21 10:45 10:45 10:45 WBC 9.0 10^3/uL 10^3/ uL (4.0-10.0) RBC 4.54 10^6/uL 10^6 /uL (4.1-5.3) Hgb 15.0 g/dL g/dL (11.5-15.3) Hct 45.6 % % (37.0-47.0) MCV 100.4 fl H fl (81-99) MCH 33.0 pg pg (28.0-34.0) MCHC 32.9 g/dL g/dL (30.0-36.0) RDW 13.9 % % (12.1-15.1) Plt Count 293 10^3/cmm 10^3 /cmm (130-400) MPV 9.0 fL fL (7.4-10.4) Neut % (Auto) 55.7 % % Lymph % (Auto) 33.1 % % Howard % (Auto) 6.0 % % Eos % (Auto) 4.7 % % Baso % (Auto) 0.4 % % Neut # (Auto) 4.98 10^3/uL 10^3 /uL (1.8-7.7) Lymph # (Auto) 3.0 10^3/uL 10^3/ uL (0.8-4.8) Howard # (Auto) 0.5 10^3/uL 10^3/ uL (0.2-0.9) Eos # (Auto) 0.4 10^3/uL 10^3/ uL (0.0-0.8) Baso # (Auto) 0.0 10^3/uL 10^3/ uL (0.0-0.1) Nucleated RBC % (a uto) 0 % % Nucleated RBCs # 0.0 /100WBC /100W BC PT 13.30 SECONDS SEC ONDS (12.1-14.9) INR 0.98 (0.8-1.2) APTT 33.1 SECONDS SECO NDS (23.9-36.7) D-Dimer 0.28 ug/mIFEU ug/ mIFEU (0-0.59) Sodium 141 mmol/L mmol/L (136-145) Potassium 3.3 mmol/L L mmol /L (3.5-5.1) Chloride 103 mmol/L mmol/L (98-107) Carbon Dioxide 24 mmol/L mmol/L (22-29) Anion Gap 17.3 (5-19) BUN 7 mg/dL mg/dL (6-20) Creatinine 0.7 mg/dL mg/dL (0.5-0.9) GFR Calculation 90.5 mL/min mL/mi n (90-130) Glucose 98 mg/dL mg/dL (65-115) Calculated Osmolal ity 290 mOsm/kg mOsm/ kg (285-295) Calcium 8.8 mg/dL mg/dL (8.5-10.5) Total Bilirubin 0.4 mg/dL mg/dL (0.15-1.2) AST 10 U/L U/L (0-32) ALT 8 U/L U/L (0-33) Alkaline Phosphata se 76 IU/L IU/L (35-105) Troponin T Baselin e Troponin T 120 Min three affiliated Delta Troponin T NT-Pro-B Natriuret Pep 634 pg/mL H pg/mL (0-125) Total Protein 6.4 g/dL L g/dL (6.6-8.7) Albumin 4.0 g/dL g/dL (3.5-5.2) Globulin 2.4 g/dL g/dL (1.3-4.6) SARS-CoV-2 Ag (Rap id) 01/18/21 01/18/21 01/18/21 10:45 12:10 14:00 WBC RBC Hgb Hct MCV MCH MCHC RDW Plt Count MPV Neut % (Auto) Lymph % (Auto) Howard % (Auto) Eos % (Auto) Baso % (Auto) Neut # (Auto) Lymph # (Auto) Howard # (Auto) Eos # (Auto) Baso # (Auto) Nucleated RBC % (a uto) Nucleated RBCs # PT INR APTT D-Dimer Sodium Potassium Chloride Carbon Dioxide Anion Gap BUN Creatinine GFR Calculation Glucose Calculated Osmolal ity Calcium Total Bilirubin AST ALT Alkaline Phosphata se Troponin T Baselin e 6 ng/L ng/L (0-10) Troponin T 120 Min three affiliated 6.00 ng/L ng/L (0-10) Delta Troponin T 0 ABS# ABS# (0-10) NT-Pro-B Natriuret Pep Total Protein Albumin Globulin SARS-CoV-2 Ag (Rap id) Negative (Negative) EKG Data^: EKG 1: Other EKG comments: Sinus rhythm, rate of 78, there are diffuse T wave inversions in 1 to aVL aVF and V2 through V6, these appear to be similar to previous EKG. No sign of acute ischemia or other acute abnormality. EKG 2: Other EKG comments: Second EKG, sinus bradycardia at 59, continued T wave inversions as before, no acute ischemic progression. 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 Hx of nephrolithotomy with removal of calculi Hypertension Hypertensive crisis Major depressive disorder, recurrent, moderate Post-traumatic stress disorder, chronic Psychiatric care Surgical History History of removal of ovarian cyst Hx of cholecystectomy Hx of hernia repair Hx of lithotripsy Family History Other Psychiatric illness Social History Smoking and tobacco status: current every day smoker cigarettes Years cigarettes smoked: 25 Quit status (tobacco): has tried quititng Number of times tried to quit tobacc o: 5 Second hand smoke exposure: No Additional social history: Denies regular alcohol use Denies current drug use Course Consultations: Consultation #1: Marissa Time: 18:14 Vital Signs: Vital signs: Vital Signs Pulse Rate 66 01/18/21 18:24 Respiratory Rate 16 01/18/21 18:00 Blood Pressure 230/110 01/18/21 18:00 Pulse Oximetry 98 01/18/21 18:00 MDM - Chest Pain MDM Narrative: Medical decision making narrative: 45-year-old female checked out to me by Dr. Gilbert. She presents with chest pain. Despite multiple doses of antihypertensives given to her by the previous physician, her blood pressure is still 230 systolic. She is placed on a nicardipine drip, and will go to the ICU. Spoke with the hospitalist who is evaluating the patient in the ER. Lab Data: Labs: Lab Results 01/18/21 01/18/21 01/18/21 10:45 10:45 10:45 WBC 9.0 10^3/uL 10^3/ uL (4.0-10.0) RBC 4.54 10^6/uL 10^6 /uL (4.1-5.3) Hgb 15.0 g/dL g/dL (11.5-15.3) Hct 45.6 % % (37.0-47.0) MCV 100.4 fl H fl (81-99) MCH 33.0 pg pg (28.0-34.0) MCHC 32.9 g/dL g/dL (30.0-36.0) RDW 13.9 % % (12.1-15.1) Plt Count 293 10^3/cmm 10^3 /cmm (130-400) MPV 9.0 fL fL (7.4-10.4) Neut % (Auto) 55.7 % % Lymph % (Auto) 33.1 % % Howard % (Auto) 6.0 % % Eos % (Auto) 4.7 % % Baso % (Auto) 0.4 % % Neut # (Auto) 4.98 10^3/uL 10^3 /uL (1.8-7.7) Lymph # (Auto) 3.0 10^3/uL 10^3/ uL (0.8-4.8) Howard # (Auto) 0.5 10^3/uL 10^3/ uL (0.2-0.9) Eos # (Auto) 0.4 10^3/uL 10^3/ uL (0.0-0.8) Baso # (Auto) 0.0 10^3/uL 10^3/ uL (0.0-0.1) Nucleated RBC % (a uto) 0 % % Nucleated RBCs # 0.0 /100WBC /100W BC PT 13.30 SECONDS SEC ONDS (12.1-14.9) INR 0.98 (0.8-1.2) APTT 33.1 SECONDS SECO NDS (23.9-36.7) D-Dimer 0.28 ug/mIFEU ug/ mIFEU (0-0.59) Sodium 141 mmol/L mmol/L (136-145) Potassium 3.3 mmol/L L mmol /L (3.5-5.1) Chloride 103 mmol/L mmol/L (98-107) Carbon Dioxide 24 mmol/L mmol/L (22-29) Anion Gap 17.3 (5-19) BUN 7 mg/dL mg/dL (6-20) Creatinine 0.7 mg/dL mg/dL (0.5-0.9) GFR Calculation 90.5 mL/min mL/mi n (90-130) Glucose 98 mg/dL mg/dL (65-115) Calculated Osmolal ity 290 mOsm/kg mOsm/ kg (285-295) Calcium 8.8 mg/dL mg/dL (8.5-10.5) Total Bilirubin 0.4 mg/dL mg/dL (0.15-1.2) AST 10 U/L U/L (0-32) ALT 8 U/L U/L (0-33) Alkaline Phosphata se 76 IU/L IU/L (35-105) Troponin T Baselin e Troponin T 120 Min three affiliated Delta Troponin T NT-Pro-B Natriuret Pep 634 pg/mL H pg/mL (0-125) Total Protein 6.4 g/dL L g/dL (6.6-8.7) Albumin 4.0 g/dL g/dL (3.5-5.2) Globulin 2.4 g/dL g/dL (1.3-4.6) SARS-CoV-2 Ag (Rap id) 01/18/21 01/18/21 01/18/21 10:45 12:10 14:00 WBC RBC Hgb Hct MCV MCH MCHC RDW Plt Count MPV Neut % (Auto) Lymph % (Auto) Howard % (Auto) Eos % (Auto) Baso % (Auto) Neut # (Auto) Lymph # (Auto) Howard # (Auto) Eos # (Auto) Baso # (Auto) Nucleated RBC % (a uto) Nucleated RBCs # PT INR APTT D-Dimer Sodium Potassium Chloride Carbon Dioxide Anion Gap BUN Creatinine GFR Calculation Glucose Calculated Osmolal ity Calcium Total Bilirubin AST ALT Alkaline Phosphata se Troponin T Baselin e 6 ng/L ng/L (0-10) Troponin T 120 Min three affiliated 6.00 ng/L ng/L (0-10) Delta Troponin T 0 ABS# ABS# (0-10) NT-Pro-B Natriuret Pep Total Protein Albumin Globulin SARS-CoV-2 Ag (Rap id) Negative (Negative) 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
--- NOTE | 2021-01-18 10:42 | XRR_ITS ---
PROCEDURE INFORMATION: Exam: XR Chest Exam date and time: 01/18/2021 10:42 AM Age: 45 years old Clinical indication: Pain; Chest pressure; Additional info: Cp TECHNIQUE: Imaging protocol: XR of the chest. Views: 1 view. Total images: 1 COMPARISON: CR (CHEST, ) 11/09/2020 4:21 AM FINDINGS: Lungs: Unremarkable. No consolidation. Pleural spaces: Unremarkable. No pleural effusion. No pneumothorax. Heart/Mediastinum: Unremarkable. No cardiomegaly. Bones/joints: Unremarkable. XR/XR chest 1V portable [id number] IMPRESSION: No acute findings. Radiation Dose CTDIVOL = (mGy): DLP = (mGy-cm)
--- NOTE | 2021-01-18 10:43 | USR_ITS ---
PROCEDURE INFORMATION: Exam: US Duplex Left Lower Extremity Veins, Limited Exam date and time: 01/18/2021 10:43 AM Age: 45 years old Clinical indication: Pain; Leg, upper; Left; Additional info: Dvt TECHNIQUE: Imaging protocol: Real-time Duplex ultrasound of the Left Lower Extremity with 2-D hernandez scale, color Doppler flow and spectral waveform analysis with image documentation. Limited exam focused on the left lower extremity veins. Total images: 27 COMPARISON: US OB Limited [id number] 07/04/2014 4:56 PM FINDINGS: Left deep veins: Unremarkable. The common femoral, femoral, proximal profunda femoral and popliteal veins are patent without thrombus. Normal Doppler waveforms. Normal compressibility and/or augmentation response. Left superficial veins: Unremarkable. Saphenofemoral junction is patent without thrombus. Soft tissues: Unremarkable. US/[place] [id number] IMPRESSION: No evidence of deep vein thrombosis. Radiation Dose CTDIVOL = (mGy): DLP = (mGy-cm)
[2021-01-18] MEDS: aspirin 81 mg Chew Tablet 324 MG PO (10:49)
[2021-01-18] MEDS: labetalol 5 mg/mL SDV 20mL 10 MG IVP (10:49)
[2021-01-18 10:54] LABS: Basophils % 0.4 %; Eosinophils # 0.4 10^3/uL (0.0-0.8); Eosinophils % 4.7 %; Hematocrit 45.6 % (37.0-47.0); Lymphocytes % 33.1 %; Mean Corpuscular HGB Conc 32.9 g/dL (30.0-36.0); Mean Corpuscular Volume 100.4 fl (81-99); Monocytes # 0.5 10^3/uL (0.2-0.9); Neutrophils # 4.98 10^3/uL (1.8-7.7); Neutrophils % 55.7 %; Nucleated Red Blood Cells % 0 %; Platelet Count 293 10^3/cmm (130-400); Red Blood Count 4.54 10^6/uL (4.1-5.3); Red Cell Distribution Width 13.9 % (12.1-15.1)
[2021-01-18 11:09] LABS: INR 0.98 (0.8-1.2)
[2021-01-18 11:10] LABS: Partial Thromboplastin Time 33.1 SECONDS (23.9-36.7)
[2021-01-18 11:12] LABS: D Dimer 0.28 ug/mIFEU (0-0.59)
[2021-01-18 11:24] LABS: Alanine Aminotransferase 8 U/L (0-33); Alkaline Phosphatase 76 IU/L (35-105); Aspartate Amino Transferase 10 U/L (0-32); Blood Urea Nitrogen 7 mg/dL (6-20); Calcium 8.8 mg/dL (8.5-10.5); Carbon Dioxide 24 mmol/L (22-29); Chloride 103 mmol/L (98-107); Globulin 2.4 g/dL (1.3-4.6); Glomerular Filtration Rate 90.5 mL/min (90-130); Glucose 98 mg/dL (65-115); NT Pro B Type Natriuretic Pept 634 pg/mL (0-125); Osmolality Calculated 290 mOsm/kg (285-295); Sodium 141 mmol/L (136-145); Total Bilirubin 0.4 mg/dL (0.15-1.2); Total Protein 6.4 g/dL (6.6-8.7)
--- NOTE | 2021-01-18 11:26 | ECG_ITS ---
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 Measurements Intervals [place] Rate: 78 P: 66 MN: 131 QRS: 36 QRSD: 97 T: 193 QT: 387 QTc: 443 Interpretive Statements SINUS RHYTHM POSSIBLE LEFT ATRIAL ENLARGEMENT [-0.1mV P-WAVE IN V1/V2] ST DEVIATION AND MARKED T-WAVE ABNORMALITY, CONSIDER ANTEROLATERAL ISCHEMIA [-0.5+ mV T-WAVE IN I/aVL/V3-V6] ST DEVIATION AND MODERATE T-WAVE ABNORMALITY, CONSIDER INFERIOR ISCHEMIA [-0.1+ mV T-WAVE IN II/aVF] Compared to ECG 11/09/2020 05:03:51 No significant changes Electronically Signed On 01-19-2021 13:19:13 [employer] by Rafaela Kidd M.D. [id number]
[2021-01-18 11:32] LABS: Anion Gap 17.3 (5-19); Potassium 3.3 mmol/L (3.5-5.1)
[2021-01-18 12:50] LABS: SARS Covid-2 Antigen Negative (Negative)
[2021-01-18] MEDS: potassium chloride ER 20 mEq Tablet PO (13:17)
[2021-01-18] MEDS: cloNIDine 0.1 mg Tablet 0.2 MG PO (13:17)
[2021-01-18 13:26] LABS: Troponin(5th) Baseline 6 ng/L (0-10)
[2021-01-18] MEDS: enalaprilat 1.25 mg/mL Inj IVP (14:20)
[2021-01-18] MEDS: sodium chloride 0.9% (100 ml) 100 ML 240 ML (14:21)
[2021-01-18 14:34] LABS: Troponin 5 2HR Delta 0 ABS# (0-10)
--- NOTE | 2021-01-18 14:47 | ECG_ITS ---
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 Measurements Intervals [place] Rate: 59 P: 62 HI: 142 QRS: 34 QRSD: 101 T: 204 QT: 461 QTc: 459 Interpretive Statements SINUS BRADYCARDIA ST DEVIATION AND MARKED T-WAVE ABNORMALITY, CONSIDER ANTEROLATERAL ISCHEMIA [-0.5+ mV T-WAVE IN I/aVL/V3-V6] ST DEVIATION AND MODERATE T-WAVE ABNORMALITY, CONSIDER INFERIOR ISCHEMIA [-0.1+ mV T-WAVE IN II/aVF] Compared to ECG 01/18/2021 10:32:22 Sinus rhythm no longer present T-wave abnormality still present Possible ischemia still present Electronically Signed On 01-19-2021 13:25:29 ACCOUNT SERVICES ANALYST by Rafaela Kidd M.D. [id number] f
[2021-01-18] MEDS: hyDROXYzine 25 mg Capsule PO (14:50)
[2021-01-18] MEDS: labetalol 5 mg/mL SDV 20mL 20 MG IVP (15:12)
[2021-01-18] MEDS: LORazepam 2 mg/mL INJ 1 mL 1 MG IVP (16:42)
[2021-01-18] MEDS: lisinopril 20 mg Tablet PO (17:15)
[2021-01-18] MEDS: spironolactone 25 mg Tablet PO (17:15)
--- NOTE | 2021-01-18 18:34 | P.HP_ITS ---
Providers/Chief Complaint Chief Complaint: Chest Pain, SOB, Pain down left leg History of Present Illness Leann Monte is a 45 year old female with past medical history of anxiety, hypertension, major depressive disorder presented to the ER with high blood pressure. She was given labetalol, clonidine, her home medications blood pressure did not improve. When I saw her her blood pressure was 230/130 and she was having headache. Initially patient wanted to leave AGAINST MEDICAL ADVICE because she was hungry but we convinced her to stay. She states that she had a recent stressor in life but did not disclose what it was. She states that she had some chest pain that radiated down her left side and had a headache and when she checked her pressure it was really high and therefore she came to the hospital. She states that she ran out of her lisinopril and spironolactone prescription and has not taken her blood pressure medications for about 1 week now. She also says that she had light flu/cough for 1 week and some nausea on and off but that is now getting better. She is a smoker half pack per day. Denies alcohol use, denies drug use. Lives at home with her cousin. Today she has not taken any of her other medications either. She will be admitted to ICU and placed on a Cardene drip. Review of Systems General: Reports: 10 or more systems reviewed and unremarkable except in HPI and below Medications/Allergies Home Medications Medication Instructions Recorded Confirmed Last Taken Type albuterol sulfate 2 inh INHALATION Q6H PRN #1 each 10/23/19 01/18/21 Unknown Rx aripiprazole 10 mg tablet 10 mg PO DAILY #30 tab 12/04/20 01/18/21 01/17/21 Rx citalopram 40 mg tablet 40 mg PO DAILY #30 tab 12/04/20 01/18/21 01/17/21 Rx hydroxyzine HCl 50 mg tablet 50 - 100 mg PO BEDTIME@2200 PRN 12/04/20 01/18/21 Unknown Rx #60 tab lisinopril 20 mg tablet 20 mg PO DAILY 01/02/21 01/18/21 01/17/21 History clonidine HCl 0.2 mg tablet 0.2 mg PO TID #90 tab 01/09/21 01/18/21 01/18/21 Rx amlodipine 10 mg PO DAILY PRN 01/18/21 01/18/21 Unknown History spironolactone 25 mg PO BID 01/18/21 01/18/21 01/17/21 History trazodone 200 mg PO BEDTIME PRN 01/18/21 01/18/21 Unknown History Allergies Allergy/AdvReac Type Severity Reaction Status Date / Time Penicillins Allergy Severe Anaphylaxis Verified 01/02/21 11:07 morphine Allergy Intermediate ADR-Vomitin Verified 01/02/21 11:07 g naproxen Allergy Intermediate ADR-Vomitin Verified 01/02/21 11:07 g lorazepam [From Ativan] AdvReac Severe Becomes Verified 01/02/21 11:07 aggressive. 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 Hx of nephrolithotomy with removal of calculi Hypertension Hypertensive crisis Major depressive disorder, recurrent, moderate Post-traumatic stress disorder, chronic Psychiatric care Surgical History History of removal of ovarian cyst Hx of cholecystectomy Hx of hernia repair Hx of lithotripsy Family History Other Psychiatric illness Social History Smoking and tobacco status: current every day smoker cigarettes Years cigarettes smoked: 25 Quit status (tobacco): has tried quititng Number of times tried to quit tobacco : 5 Second hand smoke exposure: No Additional social history: Denies regular alcohol use Denies current drug use Female Reproductive History: Para: 0 Spontaneous abortions: Yes (all 6 pregnancies) Vitals/I&O/Wt Last Vital Signs Pulse 63 01/18/21 16:00 Resp 18 01/18/21 16:00 BP 209/112 01/18/21 16:00 Pulse Ox 96 01/18/21 16:00 Weight last 48 hrs Weight 72.575 kg Physical Exam Narrative: EXAM NARRATIVE: General: Alert oriented x3, patient seen tearful an d crying in bed in the ER. He states she is hungry and would like to go home. HEENT: Normocephalic, atraumatic, EOMI, breathing room air. Cardio: Regular rate rhythm, normal S1-S2, no murmurs rubs gallops, Respiratory: Good bilateral air entry, no wheezes no rhonchi appreciated GI: Abdomen soft, nontender, nondistended, bowel sounds + Behavior: Appropriate and cooperative Extremities: Pulses 2+, trace edema bilateral lower extremities. Data : 01/19/21 09:32 01/19/21 09:32 A&P Assessment and plan (1) Hypertensive urgency, malignant: Status: Acute (2) Asthma: Status: Acute (3) Nicotine dependence, cigarettes, uncomplicated: Status: Chronic (4) Generalized anxiety disorder: Status: Chronic (5) Major depressive disorder, recurrent, moderate: Status: Chronic Additional A&P Information I will admit patient to ICU and start her on nicardipine drip. Goal blood pressure lowering 25% in the for 6 hours. Once pressure is better will slowly be at her home medications. Patient would like to be discharged tomorrow. I have convinced her to stay for just 1 night. She stated that she will not stay longer than a night no matter what. I will continue all her anxiety and depression medications: Abilify, citalopram, hydroxyzine, trazodone. Plan is to refill her prescriptions at discharge for her blood pressure medications. We will give patient nicotine patch. Diet: Cardiac DVT PPX: Lovenox Attestations Medical Necessity Statement*: > 24 hr stay for BP control Coding Level of Care Code Acute Technical Support Specialist for g Fwd Diagnoses Hypertensive urgency, malignant I16.0 Asthma J45.909 Nicotine dependence, cigarettes, uncomplicated F17.210 Generalized anxiety disorder F41.1 Major depressive disorder, recurrent, moderate F33.1
[2021-01-18] MEDS: nicardipine 20 MG/200 ML PREMIX 50 MG IV (18:46)
--- NOTE | 2021-01-18 18:47 | ECG_ITS ---
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 Measurements Intervals [place] Rate: 60 P: 59 AL: 147 QRS: 21 QRSD: 100 T: 183 QT: 456 QTc: 457 Interpretive Statements SINUS RHYTHM ST DEVIATION AND MARKED T-WAVE ABNORMALITY, CONSIDER ANTEROLATERAL ISCHEMIA [-0.5+ mV T-WAVE IN I/aVL/V3-V6] Compared to ECG 01/18/2021 13:34:44 Sinus bradycardia no longer present T-wave abnormality still present Possible ischemia still present Electronically Signed On 01-19-2021 13:25:04 PUMPER HAND by Rafaela Kidd M.D. [id number]
--- NOTE | 2021-01-18 19:00 | PC.NURSE ---
Report to June, RN
[2021-01-18 19:14] LABS: Troponin 5 6HR 6.45 ng/L (0-10); Troponin 5 6HR Delta 0.45 ng/L (0-12)
--- NOTE | 2021-01-18 22:58 | PC.NURSE ---
2240 Pt states that she want to go home [id number] Pt decides to be admitted to ICU. B/P 165/98
[2021-01-19] VITALS (57 sets, daily range): BP systolic 137–192; BP diastolic 81–125; PULSE 69–112; RESP 11–29; TEMP 36.7–36.9; O2SAT 91–99; BMI 28.0
[2021-01-19] MEDS: potassium chloride oral liq 20 mEq/15 mL UDC 40 MEQ PO ×4 (00:47→12:05)
[2021-01-19] MEDS: nicotine 21 mg Patch 1 PATCH TRANSDERMA ×2 (00:47→01:03)
[2021-01-19] MEDS: enoxaparin 40 mg/0.4 mL Syringe SUBCUT ×2 (00:48→17:53)
[2021-01-19] MEDS: acetaminophen 325 mg Tablet 650 MG PO (01:00)
[2021-01-19] MEDS: trazodone 100 mg Tablet PO (01:31)
[2021-01-19] MEDS: nicardipine 20 MG/200 ML PREMIX 50 MG IV ×2 (01:31→06:40)
[2021-01-19] MEDS: hyDROXYzine 25 mg Capsule 100 MG PO (02:13)
--- NOTE | 2021-01-19 06:31 | USCV_ITS ---
Leann Monte Age: 45 Gender: F : 1975 Exam Date: 01/19/2021 07:24 Ordering Phys: Ant Chase MD Technologist: Exam Location: [facility] [place] Indication: HYPERTENSION BP: 160 / 96 HR: 90 Rhythm: Sinus Technical Quality: Adequate MEASUREMENTS (Male / Female) Normal Values 2D ECHO LV Diastolic Diameter PLAX 4.6 cm 4.2 - 5.9 / 3.9 - 5.3 cm LV Systolic Diameter PLAX 2.5 cm IVS Diastolic Thickness 1.1 cm 0.6 - 1.0 / 0.6 - 0.9 cm IVS Systolic Thickness 2.0 cm LVPW Diastolic Thickness 1.2 cm 0.6 - 1.0 / 0.6 - 0.9 cm LVPW Systolic Thickness 1.6 cm LVOT Diameter 2.1 cm LV Ejection Fraction 2D Teich 77.5 % LV Ejection Fraction MOD 2C 82.8 % LV Ejection Fraction 2C AL 83.0 % LA Diameter 3.7 cm LA Width 2.7 cm LA Height 3.5 cm RA Width 3.0 cm RA Height 4.2 cm DOPPLER AV Peak Velocity 177.0 cm/s LVOT Peak Velocity 134.0 cm/s AV Area Cont Eq vti 2.7 cm squared AV Area Cont Eq pk 2.5 cm squared MV Area PHT 5.0 cm squared Mitral E to A Ratio 0.7 MV E' Velocity 36.0 cm/s Mitral E to MV E' Ratio 10.7 Mitral E to LV E' Lateral Ratio 9.8 Mitral E to LV E' Septal Ratio 11.8 TR Peak Velocity 158.7 cm/s TR Peak Gradient 10.1 mmHg TV Peak E Velocity 78.0 cm/s Right Atrial Pressure 3.0 mmHg Pulmonary Artery Systolic Pressu 13.1 mmHg FINDINGS Left Ventricle Normal left ventricular size, systolic function and increased wall thickness, with no regional wall motion abnormalities. Moderate concentric left ventricular hypertrophy. Left ventricular ejection fraction is estimated at 65-70 %. Grade I diastolic dysfunction (abnormal relaxation filling pattern), normal to mildly elevated filling pressures. Right Ventricle Normal right ventricular size and systolic function. Right ventricular systolic pressure 13.1 mmHg. Right Atrium Normal right atrial size. Left Atrium Mildly increased left atrial size. Mitral Valve Structurally normal mitral valve. No mitral valve stenosis. No mitral valve regurgitation. Aortic Valve Structurally normal trileaflet aortic valve. No aortic valve stenosis. Trace aortic valve regurgitation. Tricuspid Valve Structurally normal tricuspid valve. No tricuspid valve stenosis. Trace tricuspid valve regurgitation. Pulmonic Valve Pulmonic valve not well visualized. No pulmonary valve stenosis. No pulmonary valve regurgitation. Pericardium No pericardial effusion. Aorta Normal size aortic root and proximal ascending aorta. Normal sized inferior vena cava. CONCLUSIONS 1. Normal left ventricular size, systolic function and increased wall thickness, with no regional wall motion abnormalities. Moderate concentric left ventricular hypertrophy. Left ventricular ejection fraction is estimated at 65-70 %. Grade I diastolic dysfunction (abnormal relaxation filling pattern), normal to mildly elevated filling pressures. 2. Normal right ventricular size and systolic function. 3. Normal pulmonary artery pressure. 4. No significant change when compared to previous study dated 10/22/2019. Rafaela Kidd MD (Electronically Signed) Final Date: 19 January 2021 16:25 S
[2021-01-19] MEDS: ipratropium-albuterol 3 mL Neb INHALATION (09:08)
[2021-01-19 10:08] LABS: Basophils % 0.4 %; Eosinophils # 0.3 10^3/uL (0.0-0.8); Eosinophils % 3.2 %; Hematocrit 47.7 % (37.0-47.0); Hemoglobin 15.7 g/dL (11.5-15.3); Lymphocytes % 31.7 %; Mean Corpuscular HGB Conc 32.9 g/dL (30.0-36.0); Mean Corpuscular Hemoglobin 32.2 pg (28.0-34.0); Mean Corpuscular Volume 97.9 fl (81-99); Mean Platelet Volume 8.8 fL (7.4-10.4); Monocytes # 0.5 10^3/uL (0.2-0.9); Monocytes % 5.4 %; Neutrophils # 5.65 10^3/uL (1.8-7.7); Neutrophils % 59.1 %; Nucleated Red Blood Cells % 0 %; Platelet Count 320 10^3/cmm (130-400); Red Blood Count 4.87 10^6/uL (4.1-5.3); White Blood Count 9.6 10^3/uL (4.0-10.0)
[2021-01-19] MEDS: ARIPiprazole 10 mg Tablet PO (10:21)
[2021-01-19] MEDS: citalopram 20 mg Tablet 40 MG PO (10:21)
[2021-01-19 10:22] LABS: Blood Urea Nitrogen 5 mg/dL (6-20); Calcium 8.9 mg/dL (8.5-10.5); Carbon Dioxide 18 mmol/L (22-29); Chloride 103 mmol/L (98-107); Glomerular Filtration Rate 108.1 mL/min (90-130); Glucose 159 mg/dL (65-115); Magnesium 1.9 mg/dL (1.7-2.3); Osmolality Calculated 287 mOsm/kg (285-295); Sodium 138 mmol/L (136-145)
[2021-01-19] MEDS: spironolactone 25 mg Tablet PO ×2 (10:22→17:53)
[2021-01-19] MEDS: lisinopril 20 mg Tablet PO (10:22)
[2021-01-19 10:32] LABS: Anion Gap 19.9 (5-19); Potassium 2.9 mmol/L (3.5-5.1)
--- NOTE | 2021-01-19 11:26 | PC.NURSE ---
Pt politely refused IV KRider. Requested PO instead. Dr notified. PO order placed instead of IV. Will administer per order.
--- NOTE | 2021-01-19 11:30 | PC.NURSE ---
Dr requested morning dose of Clonidine be held. Resume with afternoon dose.
--- NOTE | 2021-01-19 12:49 | PM.DCS ---
Discharge Providers Date of Admission: 01/18/21 18:28 Date of Discharge: January 19, 2021 Attending Provider at Admission: Ant Chase Attending Provider at Discharge: Vickie Ann MD Diagnoses at Discharge Discharge Diagnosis (1) Hypertensive urgency, malignant: Status: Acute (2) Asthma: Status: Acute (3) Nicotine dependence, cigarettes, uncomplicated: Status: Chronic (4) Generalized anxiety disorder: Status: Chronic (5) Major depressive disorder, recurrent, moderate: Status: Chronic Reason for Visit Reason for Visit: Chest Pain, SOB, Pain down left leg Discharge Data Data Completed and Pending: Completed Studies During Hospitalization Category Date Time Status XR chest 1V marian ble [id number] Stat Exams 01/18/21 10:42 [place] [id number] Stat Ultrasound 01/18/21 10:43 Completed Pending at discharge Category Date Time Status CV. echo complete * [id number] Routine Ultrasound 01/19/21 06:31 Taken Labs from last 24 hours 01/19/21 01/19/21 01/18/21 09:32 09:32 18:27 WBC 9.6 RBC 4.87 Hgb 15.7 H Hct 47.7 H MCV 97.9 MCH 32.2 MCHC 32.9 RDW 14.0 Plt Count 320 MPV 8.8 Neut % (Auto) 59.1 Lymph % (Auto) 31.7 [place] % (Auto) 5.4 Eos % (Auto) 3.2 Baso % (Auto) 0.4 Neut # (Auto) 5.65 Lymph # (Auto) 3.0 [place] # (Auto) 0.5 Eos # (Auto) 0.3 Baso # (Auto) 0.0 Nucleated RBC % (a uto) 0 Nucleated RBCs # 0.0 Sodium 138 Potassium 2.9 L Chloride 103 Carbon Dioxide 18 L Anion Gap 19.9 H BUN 5 L Creatinine 0.6 GFR Calculation 108.1 Glucose 159 H Calculated Osmolal ity 287 Calcium 8.9 Magnesium 1.9 Troponin T Baselin e Troponin T 120 Min [place] Troponin T Troponin T Hi Sens 6Hr 6.45 Troponin T Hi Sens 6Hr Delta 0.45 SARS-CoV-2 Ag (Rap id) 01/18/21 01/18/21 01/18/21 14:00 12:10 10:45 WBC RBC Hgb Hct MCV MCH MCHC RDW Plt Count MPV Neut % (Auto) Lymph % (Auto) [place] % (Auto) Eos % (Auto) Baso % (Auto) Neut # (Auto) Lymph # (Auto) [place] # (Auto) Eos # (Auto) Baso # (Auto) Nucleated RBC % (a uto) Nucleated RBCs # Sodium Potassium Chloride Carbon Dioxide Anion Gap BUN Creatinine GFR Calculation Glucose Calculated Osmolal ity Calcium Magnesium Troponin T Baselin e 6 Troponin T 120 Min [place] 6.00 Delta Troponin T 0 Troponin T Hi Sens 6Hr Troponin T Hi Sens 6Hr Delta SARS-CoV-2 Ag (Rap id) Negative Vitals: Last Vital Signs Temp 98.4 F 01/19/21 04:00 Pulse 103 H 01/19/21 12:00 Resp 22 H 01/19/21 12:00 BP 142/82 01/19/21 12:00 Pulse Ox 93 01/19/21 12:00 Discharge Plan Discharge Condition: Serious Prescriptions: No Action aripiprazole [Abilify] 10 mg tablet 10 mg PO DAILY Qty: 30 RF: 2 citalopram 40 mg tablet 40 mg PO DAILY Qty: 30 RF: 2 hydroxyzine HCl 50 mg tablet 50 - 100 mg PO BEDTIME@2200 PRN (Reason: Anxiety) Qty: 60 RF: 2 lisinopril 20 mg tablet 20 mg PO DAILY RF: 0 clonidine HCl 0.2 mg tablet 0.2 mg PO TID Qty: 90 RF: 2 albuterol sulfate 90 mcg/actuation aerosol powdr breath activated 2 inh INHALATION Q6H PRN (Reason: shortness of breath or wheezing) Qty: 1 RF: 0 trazodone 100 mg tablet 200 mg PO BEDTIME PRN (Reason: insomnia) RF: 0 amlodipine 10 mg tablet 10 mg PO DAILY PRN (Reason: Blood Pressure) RF: 0 spironolactone 50 mg tablet 25 mg PO BID RF: 0 Coding Level of Care Code Acute Chg FW DC note Diagnoses Hypertensive urgency, malignant I16.0 Asthma J45.909 Nicotine dependence, cigarettes, uncomplicated F17.210 Generalized anxiety disorder F41.1 Major depressive disorder, recurrent, moderate F33.1
[2021-01-19] MEDS: ALPRAZolam 0.5 mg Tablet 0.25 MG PO (14:00)
[2021-01-19] MEDS: cloNIDine 0.1 mg Tablet 0.2 MG PO ×2 (14:01→20:03)
--- NOTE | 2021-01-19 15:17 | PM.PN ---
Subjective Subjective: Interval history: Seen this morning. She is doing well and has no complaints to offer. She did ask me when she will get to go home. Her BP is better. Still on cardene drip Vitals/I&O/Wt Last Vital Signs Temp 98.4 F 01/19/21 04:00 Pulse 82 01/19/21 14:30 Resp 16 01/19/21 14:30 BP 184/109 01/19/21 14:30 Pulse Ox 95 01/19/21 14:30 01/19/21 01/19/21 01/19/21 06:59 14:59 22:59 Intake Total 120 / 120 Output Total 1700 / 1700 Balance -1700 / -1400 120 / 120 Weight last 48 hrs Weight 73.981 kg Weight 72.575 kg Physical Exam Narrative: EXAM NARRATIVE: General: Alert oriented x3, NO acute distress. appears happy HEENT: Normocephalic, atraumatic, EOMI, breathing room air. Cardio: Regular rate rhythm, normal S1-S2, no murmurs rubs gallops, Respiratory: Good bilateral air entry, no wheezes no rhonchi appreciated GI: Abdomen soft, nontender, nondistended, bowel sounds + Behavior: Appropriate and cooperative Extremities: Pulses 2+, trace edema bilateral lower extremities. Data : 01/19/21 09:32 01/19/21 09:32 A&P Assessment and plan (1) Hypertensive urgency, malignant: Status: Acute (2) Asthma: Status: Acute (3) Nicotine dependence, cigarettes, uncomplicated: Status: Chronic (4) Generalized anxiety disorder: Status: Chronic (5) Major depressive disorder, recurrent, moderate: Status: Chronic Additional A&P Information Has been on cardene drip overnight. Plan to restart oral meds and wean of cardene drip today. If pressure better, can possibly discharge. Will re-assess pressure later on in day. Updated patient with the plan. I will continue all her anxiety and depression medications: Abilify, citalopram, hydroxyzine, trazodone. Plan is to refill her prescriptions at discharge for her blood pressure medications. We will give patient nicotine patch. Diet: Cardiac DVT PPX: Lovenox Attestations Medical Necessity Statement*: > 24 hr stay. BP still uncontrolled Coding Level of Care Code Acute Distribution Center Supervisor for Chg Fwd Diagnoses Hypertensive urgency, malignant I16.0 Asthma J45.909 Nicotine dependence, cigarettes, uncomplicated F17.210 Generalized anxiety disorder F41.1 Major depressive disorder, recurrent, moderate F33.1
[2021-01-19] MEDS: LORazepam 2 mg/mL INJ 1 mL 0.5 MG IVP (17:52)
[2021-01-20] VITALS (47 sets, daily range): BP systolic 130–188; BP diastolic 76–123; PULSE 62–109; RESP 13–25; TEMP 36.6–36.9; O2SAT 91–96; BMI 27.9
[2021-01-20] MEDS: trazodone 100 mg Tablet PO ×2 (02:42→21:12)
--- NOTE | 2021-01-20 06:02 | PC.NURSE ---
D/t to patients increased pressures in AM, moved Clonidine up to give early to help lower BP. No PRN medications available. Patient asymptomatic, sitting up in bed watching tv, no c/o pain, remaining VSS, room clutter free and call light in reach.
[2021-01-20] MEDS: cloNIDine 0.1 mg Tablet 0.2 MG PO (06:04)
[2021-01-20] MEDS: citalopram 20 mg Tablet 40 MG PO (08:46)
[2021-01-20] MEDS: amlodipine 10 mg Tablet PO (08:46)
[2021-01-20] MEDS: ARIPiprazole 10 mg Tablet PO (08:46)
[2021-01-20] MEDS: lisinopril 20 mg Tablet PO ×2 (08:46→14:40)
[2021-01-20] MEDS: spironolactone 25 mg Tablet PO (08:47)
[2021-01-20] MEDS: lidocaine 1% 5 ML in potassium chloride premix 100 ML 25 ML IV (08:51)
--- NOTE | 2021-01-20 09:14 | PC.NURSE ---
Complaints Patient complaining to Dr. Thompson that she has not eating but only 2 sandwiches since being admitted. This nurse offered the patient an additional breakfast tray just prior to arrival and patient refused.
[2021-01-20] MEDS: hyDRALAzine 50 mg Tablet PO ×3 (09:25→20:33)
[2021-01-20] MEDS: LORazepam 2 mg/mL INJ 1 mL 0.5 MG IVP (09:25)
--- NOTE | 2021-01-20 09:31 | PC.CHAP ---
Pastoral Care Encounter/Spiritual Assessment Type of Contact [] Declined digital content specialist visit [] Patient/Family/Request visit [] Outpatient visit [] Follow-up visit [] Physician referral [] Code/Alert [x] Routine visit [] Staff referral [] Actively dying [x] Patient sleeping [] Family support [] [] Out of room [] Palliative care [] [] Receiving care in room [] Pre-surgical visit [] Trauma [] Long length of stay [x] ICU visit [] Other: Relational/Emotional Strength [] Patient feels connected with others/family/visitors/staff [] Distress [] Loneliness/isolation [] Abandonment Spirituality of Patient [] Person of [place] [] Attends Anabaptism of their [place] [] Believes in Prayer [] Reads Bible or Sikh materials [] There are Spiritual issues to be addressed High Scaler Interventions [x] Prayer [] Active listening [] Non-anxious presence [] Spiritual/emotional support [] Crisis/trauma care [] Spiritual counseling [] Bereavement support [] Provided bereavement packet [] Provided Bible/devotional materials [] Provided toy/stuffed animal, coloring book to patient or family member [] Provided Communion [] Anointing/[place] [] Salvation [x] Completed spiritual assessment [] Other: Impact on Illness or Injury [] Angry [] Fearful [] Anxious [] Often cries [] Exhaustion [] Unable to work [] Unable to attend anglican [] Unable to walk/stand [] Unable to read [] Unable to drive [] Unable to eat/drink [] Unable to sleep [] Unable to be with family [] Patient intubated [] Other: Summary Time spent with patient
--- NOTE | 2021-01-20 14:02 | P.PN_ITS ---
Subjective Subjective: Interval history: Patient was seen in the ICU, her diastolic pressure is still above 110, patient is not experiencing any symptoms other than anxiety, Patient is stating that she wants to start her work she has recently started working remotely, she is eager to go home however not ready to be discharged she might need Cardene drip later today I have optimized her home medications, requested renin aldosterone ratio, transfer out of ICU, requested drug screen level Vitals/I&O/Wt Last Vital Signs Temp 98.2 F 01/20/21 05:13 Pulse 62 01/20/21 11:30 Resp 20 H 01/20/21 11:30 BP 171/115 01/20/21 11:30 Pulse Ox 92 01/20/21 11:00 01/19/21 01/20/21 01/20/21 22:59 06:59 14:59 Intake Total 200 / 320 200 / 520 645.000 / 645.000 Output Total 700 / 700 100 / 100 Balance -500 / -380 200 / -180 545.000 / 545.000 Weight last 48 hrs Weight 73.936 kg Weight 73.981 kg Physical Exam Narrative: EXAM NARRATIVE: Sitting in her bed Saturating well on room air S1, S2 Hypertensive Nonfocal neuro exam Multiple skin tattoos No abdominal pain no tenderness Breathing well on room air No renal bruit Data : 01/19/21 09:32 01/19/21 09:32 A&P Assessment and plan (1) Hypertensive urgency, malignant: Status: Acute (2) Asthma: Status: Acute (3) Post-traumatic stress disorder, chronic: Status: Chronic (4) Generalized anxiety disorder: Status: Chronic Additional A&P Information Hypertensive emergency Diastolic blood pressure above 110 mmHg Need to restart Cardene drip today I have optimized her lisinopril, spironolactone, added hydralazine, cannot add diuretics because of persistent hypokalemia, requested renin and aldosterone patient is stating that previously she was tested for similar condition and everything came back normal she even did 24-hour urine studies which were unremarkable She has not used any medication for last 2 weeks I have requested drug screen level LVH on echo Requested patient to follow-up with retina specialist outpatient as well after discharge She is not ready to be discharged Cardiac diet DVT prophylaxis on board Full code Anxiety with panic attacks she has required multiple doses of Ativan during her hospitalization I do suspect renal tubular acidosis with hypokalemia and hypertension, anticipating improvement with spironolactone Attestations Medical Necessity Statement*: Discharge tomorrow if blood pressure is stable Time Spent in Patient Care: 16 - 35 minutes Coding Level of Care Code Acute School Bus Mechanic for Scotty Fwd Diagnoses Hypertensive urgency, malignant I16.0 Asthma J45.909 Post-traumatic stress disorder, chronic F43.12 Generalized anxiety disorder F41.1
[2021-01-20] MEDS: potassium chloride ER 20 mEq Tablet 40 MEQ PO (14:39)
[2021-01-20] MEDS: cloNIDine 0.1 mg Tablet 0.3 MG PO ×2 (14:39→21:12)
--- NOTE | 2021-01-20 16:36 | PC.NURSE ---
Report called to ANDREA Hernandez, CSU. No further questions. Patient taken to 102-1 by this nurse. Belongings with patient.
[2021-01-20] MEDS: nicotine 21 mg Patch 1 PATCH TRANSDERMA (16:45)
[2021-01-20] MEDS: spironolactone 25 mg Tablet 50 MG PO (17:47)
[2021-01-20] MEDS: enoxaparin 40 mg/0.4 mL Syringe SUBCUT (17:49)
[2021-01-20] MEDS: nicardipine 20 MG/200 ML PREMIX 50 MG IV (17:55)
[2021-01-20] MEDS: hyDROXYzine 25 mg Capsule 100 MG PO (20:33)
[2021-01-20] MEDS: NIFEdipine 10 mg Capsule PO (20:33)
[2021-01-21] VITALS (7 sets, daily range): BP systolic 143–170; BP diastolic 94–102; PULSE 68–81; RESP 13–23; TEMP 36.2–36.3; O2SAT 94–97
--- NOTE | 2021-01-21 04:12 | PC.NURSE ---
Dr. Figueroa notified of blood pressure of 170/102. Ordered to give 9 am Hydralazine and Catapres now and not to restart Janes tomas.
[2021-01-21] MEDS: cloNIDine 0.1 mg Tablet 0.3 MG PO (04:16)
[2021-01-21] MEDS: hyDRALAzine 50 mg Tablet PO (04:16)
[2021-01-21 06:32] LABS: Alanine Aminotransferase 6 U/L (0-33); Albumin Level 3.8 g/dL (3.5-5.2); Alkaline Phosphatase 86 IU/L (35-105); Anion Gap 16.9 (5-19); Aspartate Amino Transferase 8 U/L (0-32); Blood Urea Nitrogen 13 mg/dL (6-20); Calcium 8.5 mg/dL (8.5-10.5); Carbon Dioxide 19 mmol/L (22-29); Chloride 106 mmol/L (98-107); Globulin 3.1 g/dL (1.3-4.6); Glomerular Filtration Rate 108.1 mL/min (90-130); Glucose 86 mg/dL (65-115); Osmolality Calculated 285 mOsm/kg (285-295); Potassium 3.9 mmol/L (3.5-5.1); Sodium 138 mmol/L (136-145); Total Bilirubin 0.2 mg/dL (0.15-1.2); Total Protein 6.9 g/dL (6.6-8.7)
[2021-01-21 06:33] LABS: Amphetamines Screen Urine Negative (Negative); Barbiturates Screen Urine Negative (Negative); Benzodiazepines Screen Urine Positive (Negative); Cocaine Screen Urine Negative (Negative); Opiate Screen Urine Negative (Negative); PCP Screen Urine Negative (Negative); THC Screen Urine Negative (Negative)
--- NOTE | 2021-01-21 06:35 | PC.NURSE ---
Patient stated, can you ask the doctor if I can have another Xanax for anxiety. Dr. Figueroa notified. PRN Xanax ordered.
--- NOTE | 2021-01-21 06:37 | PC.NURSE ---
When collecting urine sample, patient states, it might show a little bit of marijuana in it, but that's it. I don't use any hard drugs.
[2021-01-21] MEDS: ARIPiprazole 10 mg Tablet PO (08:33)
[2021-01-21] MEDS: ALPRAZolam 0.5 mg Tablet 0.25 MG PO (08:34)
[2021-01-21] MEDS: spironolactone 25 mg Tablet 50 MG PO (08:34)
[2021-01-21] MEDS: lisinopril 20 mg Tablet 40 MG PO (08:34)
[2021-01-21] MEDS: citalopram 20 mg Tablet 40 MG PO (08:35)
[2021-01-21] MEDS: potassium chloride ER 20 mEq Tablet 40 MEQ PO (08:36)
[2021-01-21] MEDS: nicotine 21 mg Patch 1 PATCH TRANSDERMA (08:41)
[2021-01-21 08:46] LABS: Thyroid Stimulating Hormone 2.94 uIU/mL (0.27-4.20)
--- NOTE | 2021-01-21 09:34 | PM.DCS ---
Discharge Providers Date of Admission: 01/18/21 18:28 Date of Discharge: January 21, 2021 Attending Provider at Admission: Ant Chase Attending Provider at Discharge: Ella Thompson MD Diagnoses at Discharge Discharge Diagnosis (1) Hypertensive urgency, malignant: Status: Acute (2) Asthma: Status: Acute (3) Post-traumatic stress disorder, chronic: Status: Chronic (4) Generalized anxiety disorder: Status: Chronic Reason for Visit Reason for Visit: Chest Pain, SOB, Pain down left leg Hospital Course Hospital Course History of Present Illness by Dr Marissa Basurto Lavell is a 45 year old female with past medical history of anxiety, hypertension, major depressive disorder presented to the ER with high blood pressure. She was given labetalol, clonidine, her home medications blood pressure did not improve. When I saw her her blood pressure was 230/130 and she was having headache. Initially patient wanted to leave AGAINST MEDICAL ADVICE because she was hungry but we convinced her to stay. She states that she had a recent stressor in life but did not disclose what it was. She states that she had some chest pain that radiated down her left side and had a headache and when she checked her pressure it was really high and therefore she came to the hospital. She states that she ran out of her lisinopril and spironolactone prescription and has not taken her blood pressure medications for about 1 week now. She also says that she had light flu/cough for 1 week and some nausea on and off but that is now getting better. She is a smoker half pack per day. Denies alcohol use, denies drug use. Lives at home with her cousin. Today she has not taken any of her other medications either. She will be admitted to ICU and placed on a Cardene drip. Hosp course': Patient was admitted to the ICU for management of hypertensive emergency with diastolic pressure about 110, she was started on Cardene drip, her drip was discontinued after 24 hours next day I increased her clonidine to 0.3 mg 3 times daily, added hydralazine 25 mg 3 times daily and amlodipine 10 mg daily however her blood pressure was resistant to antihypertensive p.o. regimen. In the ICU there was no overlap between IV and p.o. medications. I transferred her to CSU and started Cardene drip again. Optimized her lisinopril to 40 mg, added nifedipine 10 mg 3 times daily, discontinued amlodipine, continued clonidine 0.3 mg 3 times daily, hydralazine 10 mg 3 times daily, spironolactone 50 mg twice daily, I was reluctant to add any diuretic because of her persistent hypokalemia. Patient is stating that she has been tested multiple times in the past for aldosterone pathology, previously her renin aldosterone ratio were normal. She also had a 24-hour urine collection done in the past which was unremarkable. However I do think she would definitely benefit from nifedipine and spironolactone addition. I have sent all of these medications to [facility] [place] [facility]. Patient is stating that she recently started working remotely and looking forward to get benefits through her employer. I have asked her to maintain blood pressure diary at home when she went to her she still needs closer monitoring. renin, aldosterone level pending. Physical Exam Narrative: EXAM NARRATIVE: Sitting in her bed Saturating well on room air S1, S2 Hypertensive Nonfocal neuro exam Multiple skin tattoos No abdominal pain no tenderness Breathing well on room air No renal bruit Discharge Data Data Completed and Pending: Completed Studies During Hospitalization Category Date Time Status XR chest 1V marian ble [id number] Stat Exams 01/18/21 10:42 [place] [id number] Stat Ultrasound 01/18/21 10:43 Completed CV. echo complete * [id number] Routine Ultrasound 01/19/21 06:31 Completed Pending at discharge Category Date Time Status Aldosterone Routi ne Lab 01/20/21 11:33 Received Plasma Renin Acti vity LC/MS/MS Rout ine Lab 01/20/21 08:15 Received Labs from last 24 hours 01/21/21 01/21/21 01/20/21 04:15 04:15 11:33 Sodium 138 Potassium 3.9 Chloride 106 Carbon Dioxide 19 L Anion Gap 16.9 BUN 13 Creatinine 0.6 GFR Calculation 108.1 Glucose 86 Calculated Osmolal ity 285 Calcium 8.5 Total Bilirubin 0.2 AST 8 ALT 6 Alkaline Phosphata se 86 Total Protein 6.9 Albumin 3.8 Globulin 3.1 Aldosterone Pending TSH 2.94 Urine Opiates Scre en Ur Barbiturates Sc reen Ur Phencyclidine S crn Ur Amphetamines Sc reen U Benzodiazepines Scrn Urine Cocaine Scre en U Marijuana (THC) Screen 01/20/21 05:05 Sodium Potassium Chloride Carbon Dioxide Anion Gap BUN Creatinine GFR Calculation Glucose Calculated Osmolal ity Calcium Total Bilirubin AST ALT Alkaline Phosphata se Total Protein Albumin Globulin Aldosterone TSH Urine Opiates Scre en Negative Ur Barbiturates Sc reen Negative Ur Phencyclidine S crn Negative Ur Amphetamines Sc reen Negative U Benzodiazepines Scrn Positive H Urine Cocaine Scre en Negative U Marijuana (THC) Screen Negative Vitals: Last Vital Signs Temp 97.4 F L 01/21/21 07:12 Pulse 68 01/21/21 08:32 Resp 23 H 01/21/21 08:32 BP 154/94 01/21/21 08:32 Pulse Ox 94 01/21/21 08:32 Discharge Plan Discharge Patient Disposition: Home Condition: Stable Prescriptions: New clonidine HCl 0.1 mg Tablet 0.3 mg PO TID 30 Days Qty: 270 RF: 1 lisinopril 20 mg Tablet 40 mg PO DAILY 60 Days Qty: 60 RF: 2 spironolactone 25 mg Tablet 50 mg PO BID 30 Days Qty: 120 RF: 2 nifedipine 10 mg Capsule 10 mg PO TID 30 Days Qty: 90 RF: 2 hydralazine 10 mg tablet 10 mg PO TID Qty: 90 RF: 2 Continued aripiprazole [Abilify] 10 mg tablet 10 mg PO DAILY Qty: 30 RF: 2 citalopram 40 mg tablet 40 mg PO DAILY Qty: 30 RF: 2 hydroxyzine HCl 50 mg tablet 50 - 100 mg PO BEDTIME@2200 PRN (Reason: Anxiety) Qty: 60 RF: 2 albuterol sulfate 90 mcg/actuation aerosol powdr breath activated 2 inh INHALATION Q6H PRN (Reason: shortness of breath or wheezing) Qty: 1 RF: 0 trazodone 100 mg tablet 200 mg PO BEDTIME PRN (Reason: insomnia) RF: 0 Discontinued lisinopril 20 mg tablet 20 mg PO DAILY RF: 0 clonidine HCl 0.2 mg tablet 0.2 mg PO TID Qty: 90 RF: 2 amlodipine 10 mg tablet 10 mg PO DAILY PRN (Reason: Blood Pressure) RF: 0 spironolactone 50 mg tablet 25 mg PO BID RF: 0 Discharge Orders: Discharge Order (Routine); Ordered 01/21/21 Ordered By: Ella Thompson Referrals: Laura Ladd DO [Physician] - 1-3 days (Please follow-up with Jean Patel (Laura Ladd is booked out until late February) on at 8:00A.M. If you have any questions or need to reschedule. Please call ) Discharge Diet: Cardiac and Low Salt Discharge Activity: Resume usual activity Patient Instructions: Spironolactone (By mouth), Lisinopril (By mouth), Nifedipine (By mouth), Clonidine (By mouth), Hydralazine (By mouth), Asthma (DC), Seasoning Without Salt (DC), Low-Sodium Diet (DC), Hypertensive Crisis (DC), Opioid Safety Discharge Attestations Time Spent in Discharge Care*: less than 30 min Quality Metrics Clinical Quality Measures During this hospital stay, did patient experience: None Coding Level of Care Code Acute Chg FW DC note Diagnoses Hypertensive urgency, malignant I16.0 Asthma J45.909 Post-traumatic stress disorder, chronic F43.12 Generalized anxiety disorder F41.1
== END 2021-01-21 13:30 | disposition home or self-care (01) | DRG 305 ==
LOC: ER 19:10 → ICU 01-19 00:19 → CSU 01-20 16:58
PROVIDERS: Emergency Medicine; Internal Medicine; Admitting Provider Internal Medicine; Emergency Provider Emergency Medicine; Visit Provider Internal Medicine
DX: I16.0 Hypertensive urgency (principal); F33.1 Major depressive disorder, recurrent, moderate; F41.1 Generalized anxiety disorder; I10 Essential (primary) hypertension; F43.12 Post-traumatic stress disorder, chronic; F17.210 Nicotine dependence, cigarettes, uncomplicated; J45.909 Unspecified asthma, uncomplicated; T46.4X6A Underdosing of angiotensin-converting-enzyme inhibitors, initial encounter; T50.0X6A Underdosing of mineralocorticoids and their antagonists, initial encounter; Z91.128 Patient's intentional underdosing of medication regimen for other reason; Z79.51 Long term (current) use of inhaled steroids
CPT/HCPCS: 36415; 71045; 80048; 80053; 80306; 82088; 83735; 83880; 84244; 84443; 84484; 85025; 85378; 85610; 85730; 87426; 93005; 93306; 93971; 94640; 96365; 96366; 96372; 96375; 96376; 99291; J1650; J2060; J3480; J3490

== ENCOUNTER 2021-02-07 12:59 | Outpatient (CLI) | payer SELFPAY ==
[2021-02-12 16:22] LABS: Total Urine 1000 mL; Urine Creatinine 0.65 g/24 h (0.50-2.15)
== END 2021-02-07 13:00 | disposition home or self-care (01) ==
LOC: LAB 13:04
PROVIDERS: PCP Family Medicine; Visit Provider Family Medicine
DX: F41.1 Generalized anxiety disorder (principal); I10 Essential (primary) hypertension; I16.0 Hypertensive urgency; J45.909 Unspecified asthma, uncomplicated; Z76.89 Persons encountering health services in other specified circumstances
CPT/HCPCS: 82530

== ENCOUNTER 2021-07-06 06:40 | Emergency (ER) | payer BC, SELFPAY ==
[2021-07-06 06:42] VITALS: BP 155/80; PULSE 97; RESP 20; TEMP 36.1; O2SAT 99; BMI 31.8
--- NOTE | 2021-07-06 06:53 | ED_ITS ---
HPI - General Adult General: Chief complaint: Chest Pain Stated complaint: low potassium Time Seen by Provider: 07/06/21 06:52 History of Present Illness: Ms. Monte is a 45-year-old lady with significant past medical history of hypertension and tobaccoism who presents to the emergency department due to generalized symptoms. Symptom onset was approximately 4 days ago. She does endorse increased social stressors including the of family member for which she is more depressed about however 4 days ago began developing left sided tingling and generalized weakness. Since onset symptoms have been intermittent and when present symptom intensity is moderate to severe. There is no specific provoking factors that the patient identifies. She endorses generalized heaviness and weakness sensation however the tingling is new involving the left face, left arm, and rarely left leg. She has associated with headaches which are not typical for her. She also has left anterior chest discomfort at times which is also not specifically provoked. No other specific changes in health, exacerbating, or alleviating factors identified. 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 Hx of nephrolithotomy with removal of calculi Hypertension Hypertensive crisis Major depressive disorder, recurrent, moderate Nicotine dependence, cigarettes, uncomplicated Post-traumatic stress disorder, chronic Psychiatric care Surgical History History of removal of ovarian cyst Hx of cholecystectomy Hx of hernia repair Hx of lithotripsy Family History Other Psychiatric illness Social History (Updated 07/06/21 @ 07:07 by Bairon Sandhu MD) Smoking and tobacco status: current every day smoker cigarettes Years cigarettes smoked: 25 Quit status (tobacco): has tried quititng Number of times tried to quit tobacco: 5 Second hand smoke exposure: No Additional social history: Denies regular alcohol use Denies current drug use Female Reproductive History: Para: 0 Spontaneous abortions: Yes (all 6 pregnancies) Physical Exam Const: COMMON NORMALS: patient oriented x3 and alert GENERAL APPEARANCE: cooperative and well developed HENMT: COMMON NORMALS: normocephalic and atraumatic HEAD & SCALP: normocephalic and atraumatic THROAT: posterior oropharynx normal Eye: COMMON NORMALS: conjunctivae normal CONJUNCTIVA: Yes conjunctivae normal SCLERA: sclerae normal Neck/C-Spine: COMMON NORMALS: supple GENERAL: Yes trachea midline Resp: EFFORT & INSPECTION: Yes able to speak in complete sentences AUSCULTATION: diminished lung sounds Cardio: COMMON NORMALS: regular rate and regular rhythm RATE: regular rate RHYTHM: regular rhythm GI: COMMON NORMALS: Soft to palpation PALPATION: Yes Soft to palpation and No Tenderness to palpation present (GI) PERCUSSION: normal to percussion Extremity: GENERAL: Yes normal exam except as noted and No edema Neuro: COMMON NORMALS: patient oriented x3, CN's II-XII intact bilaterally, moves all extremities, no focal motor deficits and no sensory deficits noted SENSORIUM/ORIENTATION: Yes alert and No Orientation impaired Psych: COMMON NORMALS: mental status grossly normal and Normal thought process present THOUGHT PROCESS: Normal thought process present Course ED course: - Patient was seen and evaluated by me at bedside - Patient placed on cardiac monitors, IV access obtained - Initial evaluation notable for exam as above - Labs and xrays personally interpreted by me EKG from 09 personally interpre broderick by me and shows sinus rhythm with nonspecific ST segment abnormalities. No STEMI. -Aspirin and fluids given - Labs notable for minimal leukocytosis, normal hemoglobin. Metabolic panel with likely evidence of dehydration. Delta troponin is negative. - Imaging notable for negative head CT, given duration of symptoms and physical exam findings I do not feel that additional advanced imaging of the head to evaluate neurologic status is warranted. No pneumothorax or lobar consolidation identified on chest x-ray. - Upon serial reexamination after treatment the patient was improved - Based on patient history, evaluation, and testing as interpreted the most likely cause of the patient's condition is chest pain, dehydration, and paresthesias of unclear etiology. - The results of ED evaluation were discussed with the patient including prescriptions and/or symptomatic cares (if applicable) including appropriate and responsible use, followup plan, and return precautions. The patient verbalized understanding and felt safe for discharge. - Patient discharged in satisfactory condition. Note: Click bubbles or prepopulated still in note writing are used for assistance with data collection and billing and are inherently more limited than narrative and other text portions of this note. Please use narrative for additional clinical history and defer to narrative/free test for any case of contradictory information. If information appears in only free text or click bubble it should be considered present or absent as reported. Please contact note database report writer for clarifications of clinical information or contradictory information. MDM is a brief summary, contradictory or erroneous seeming information should be clarified and full note should be reviewed. Vital Signs: Vital signs: Vital Signs Temperature 96.9 F L 07/06/21 06:42 Pulse Rate 63 07/06/21 08:40 Respiratory Rate 20 H 07/06/21 06:42 Blood Pressure 97/64 07/06/21 08:40 Pulse Oximetry 99 07/06/21 06:42 MDM - General Adult Medical Decision Making Defined on ED [id number] lady presenting with chest pain and paresthesias, duration. Patient was noted to be dehydrated and IV fluids given. Will refer for primary care for further cardiac evaluation. Patient comfortable with and satisfactory for outpatient management with strict return precautions. Medical Records I reviewed the patient's medical records. Lab Data I reviewed the patient's lab results. : 07/06/21 07:10 07/06/21 07:10 Radiology Impressions Chest X-Ray 07/06/21 07:04 IMPRESSION: No acute findings. Head CT 07/06/21 07:04 IMPRESSION: No acute intracranial abnormality. Laboratory Results WBC 11.2 10^3/uL (4.0-10.0) H 07/06/21 07:10 RBC 4.57 10^6/uL (4.1-5.3) 07/06/21 07:10 Hgb 14.5 g/dL (11.5-15.3) 07/06/21 07:10 Hct 43.7 % (37.0-47.0) 07/06/21 07:10 MCV 95.6 fl (81-99) 07/06/21 07:10 MCH 31.7 pg (28.0-34.0) 07/06/21 07:10 MCHC 33.2 g/dL (30.0-36.0) 07/06/21 07:10 RDW 14.3 % (12.1-15.1) 07/06/21 07:10 Plt Count 366 10^3/cmm (130-400) 07/06/21 07:10 MPV 8.8 fL (7.4-10.4) 07/06/21 07:10 Neut % (Auto) 57.9 % 07/06/21 07:10 Lymph % (Auto) 29.6 % 07/06/21 07:10 [place] % (Auto) 7.2 % 07/06/21 07:10 Eos % (Auto) 4.5 % 07/06/21 07:10 Baso % (Auto) 0.5 % 07/06/21 07:10 Neut # (Auto) 6.50 10^3/uL (1.8-7.7) 07/06/21 07:10 Lymph # (Auto) 3.3 10^3/uL (0.8-4.8) 07/06/21 07:10 [place] # (Auto) 0.8 10^3/uL (0.2-0.9) 07/06/21 07:10 Eos # (Auto) 0.5 10^3/uL (0.0-0.8) 07/06/21 07:10 Baso # (Auto) 0.1 10^3/uL (0.0-0.1) 07/06/21 07:10 Nucleated RBC % (auto) 0 % 07/06/21 07:10 Nucleated RBCs # 0.0 /100WBC 07/06/21 07:10 Sodium 134 mmol/L (136-145) L 07/06/21 07:10 Potassium 5.0 mmol/L (3.5-5.1) 07/06/21 07:10 Chloride 102 mmol/L (98-107) 07/06/21 07:10 Carbon Dioxide 20 mmol/L (22-29) L 07/06/21 07:10 Anion Gap 17.0 (5-19) 07/06/21 07:10 BUN 21 mg/dL (6-20) H 07/06/21 07:10 Creatinine 1.4 mg/dL (0.5-0.9) H 07/06/21 07:10 GFR Calculation 40.7 mL/min (90-130) L 07/06/21 07:10 Glucose 101 mg/dL (65-115) 07/06/21 07:10 Calculated Osmolality 281 mOsm/kg (285-295) L 07/06/21 07:10 Calcium 8.4 mg/dL (8.5-10.5) L 07/06/21 07:10 Total Bilirubin 0.2 mg/dL (0.15-1.2) 07/06/21 07:10 AST 14 U/L (0-32) 07/06/21 07:10 ALT 16 U/L (0-33) 07/06/21 07:10 Alkaline Phosphatase 96 IU/L (35-105) 07/06/21 07:10 Troponin T Baseline 51 ng/L (0-10) H 07/06/21 07:10 Troponin T 120 Minute 47.42 ng/L (0-10) H 07/06/21 09:20 Delta Troponin T -3.58 ABS# (0-10) L 07/06/21 09:20 Total Protein 7.1 g/dL (6.6-8.7) 07/06/21 07:10 Albumin 4.5 g/dL (3.5-5.2) 07/06/21 07:10 Globulin 2.6 g/dL (1.3-4.6) 07/06/21 07:10 Lipase 28 U/L (13-60) 07/06/21 07:10 TSH 1.55 uIU/mL (0.27-4.20) 07/06/21 07:10 Discharge Plan Discharge Patient Disposition: Home Clinical Impression: Chest pain, Paresthesia, Dehydration, Creatinine elevation Condition: Stable Prescriptions: No Action spironolactone 25 mg tablet 50 mg PO BID 30 Days Qty: 120 2RF nifedipine 10 mg capsule 10 mg PO TID 30 Days Qty: 90 2RF lisinopril 20 mg tablet 40 mg PO DAILY 60 Days Qty: 60 2RF hydralazine 10 mg tablet 10 mg PO TID Qty: 90 2RF clonidine HCl 0.1 mg tablet 0.3 mg PO TID 30 Days Qty: 270 2RF trazodone 100 mg tablet 200 mg PO BEDTIME PRN (Reason: insomnia) Qty: 60 0RF hydroxyzine HCl 50 mg tablet 50 - 100 mg PO BEDTIME@2200 PRN (Reason: Anxiety) Qty: 60 0RF citalopram 40 mg tablet 40 mg PO DAILY Qty: 30 0RF aripiprazole [Abilify] 10 mg tablet 10 mg PO DAILY Qty: 30 0RF albuterol sulfate 90 mcg/actuation aerosol powdr breath activated 2 inh INHALATION Q6H PRN (Reason: shortness of breath or wheezing) Qty: 1 0RF Discharge Orders: Discharge ED (Routine); Ordered 07/06/21 Ordered By: Bairon Sandhu Referrals: Jean Iniguez, [Primary Care Provider] - Discharge Diet: Usual diet Discharge Activity: Increase activity as tolerated Patient Instructions: Chest Pain (ED), Dehydration (ED), Paresthesia (ED) Activity Restrictions/Additional Instructions: Thank you for visiting the emergency department. You were seen and evaluated for chest pain and tingling as well as generalized weakness. The exact cause of your symptoms is unclear. As discussed you will likely need further cardiac evaluation which can be arranged by your primary care provider. Additionally you are dehydrated, please ensure that you are staying hydrated and follow-up with your primary care for repeat labs in 1 week. Return to the emergency department for worsening symptoms, any new focal neurologic deficits, or anything else that you are concerned about and feel needs emergency department evaluation. Coding Level of Care Code ED Resolution Agent for Chg Fwd Exam Comprehensive
--- NOTE | 2021-07-06 07:04 | XRR_ITS ---
PROCEDURE INFORMATION: Exam: XR Chest Exam date and time: 07/06/2021 7:35 AM Age: 45 years old Clinical indication: Pain; Right-sided; Additional info: Left chest pain TECHNIQUE: Imaging protocol: XR of the chest. Views: 1 view. COMPARISON: CR XR chest 1V portable [id number] 01/18/2021 11:20 AM FINDINGS: Lungs: Unremarkable. No consolidation. Pleural spaces: Unremarkable. No pleural effusion. No pneumothorax. Heart/Mediastinum: Unremarkable. No cardiomegaly. Bones/joints: Unremarkable. XR/XR chest 1V portable [id number] IMPRESSION: No acute findings.
--- NOTE | 2021-07-06 07:04 | ECG_ITS ---
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 Measurements Intervals [place] Rate: 82 P: 62 TN: 132 QRS: 29 QRSD: 94 T: 127 QT: 357 QTc: 418 Interpretive Statements SINUS RHYTHM POSSIBLE LEFT ATRIAL ENLARGEMENT [-0.1mV P-WAVE IN V1/V2] ST DEVIATION AND MODERATE T-WAVE ABNORMALITY, CONSIDER ANTEROLATERAL ISCHEMIA [-0.1+ mV T-WAVE IN V3-V6] Compared to ECG 01/18/2021 17:46:53 No significant changes Electronically Signed On 07-06-2021 8:18:01 CDT by Carlos A Nuñez M.D. [email or web address]
--- NOTE | 2021-07-06 07:04 | CTR_ITS ---
PROCEDURE INFORMATION: Exam: CT Head Without Contrast Exam date and time: 07/06/2021 7:40 AM Age: 45 years old Clinical indication: Other: L sided facial and body tingling TECHNIQUE: Imaging protocol: Computed tomography of the head without contrast. Radiation optimization: All CT scans at this facility use at least one of these dose optimization techniques: automated exposure control; mA and/or kV adjustment per patient size (includes targeted exams where dose is matched to clinical indication); or iterative reconstruction. COMPARISON: CT head wo con* [id number] 04/25/2020 4:36 PM RADIATION DOSE METRICS: Total DLP (mGy-cm): 940.44 FINDINGS: Brain: Normal. No hemorrhage. Unremarkable white matter. No mass effect. Cerebral ventricles: No ventriculomegaly. Paranasal sinuses: Visualized sinuses are unremarkable. No fluid levels. Mastoid air cells: Visualized mastoid air cells are well aerated. Bones/joints: Unremarkable. No acute fracture. Soft tissues: Unremarkable. CT/CT head wo con* [id number] IMPRESSION: No acute intracranial abnormality.
[2021-07-06 07:20] LABS: Basophils # 0.1 10^3/uL (0.0-0.1); Basophils % 0.5 %; Eosinophils # 0.5 10^3/uL (0.0-0.8); Eosinophils % 4.5 %; Hematocrit 43.7 % (37.0-47.0); Hemoglobin 14.5 g/dL (11.5-15.3); Lymphocytes # 3.3 10^3/uL (0.8-4.8); Lymphocytes % 29.6 %; Mean Corpuscular HGB Conc 33.2 g/dL (30.0-36.0); Mean Corpuscular Hemoglobin 31.7 pg (28.0-34.0); Mean Corpuscular Volume 95.6 fl (81-99); Mean Platelet Volume 8.8 fL (7.4-10.4); Monocytes # 0.8 10^3/uL (0.2-0.9); Monocytes % 7.2 %; Neutrophils % 57.9 %; Nucleated Red Blood Cells % 0 %; Platelet Count 366 10^3/cmm (130-400); Red Blood Count 4.57 10^6/uL (4.1-5.3); Red Cell Distribution Width 14.3 % (12.1-15.1); White Blood Count 11.2 10^3/uL (4.0-10.0)
[2021-07-06 07:41] LABS: Slide Review Slide Review Perform
[2021-07-06] MEDS: aspirin 81 mg Chew Tablet 324 MG PO (07:48)
[2021-07-06 07:53] LABS: Troponin(5th) Baseline 51 ng/L (0-10)
[2021-07-06 08:00] LABS: Albumin Level 4.5 g/dL (3.5-5.2); Alkaline Phosphatase 96 IU/L (35-105); Blood Urea Nitrogen 21 mg/dL (6-20); Calcium 8.4 mg/dL (8.5-10.5); Carbon Dioxide 20 mmol/L (22-29); Chloride 102 mmol/L (98-107); Globulin 2.6 g/dL (1.3-4.6); Glomerular Filtration Rate 40.7 mL/min (90-130); Glucose 101 mg/dL (65-115); Lipase 28 U/L (13-60); Osmolality Calculated 281 mOsm/kg (285-295); Sodium 134 mmol/L (136-145); Thyroid Stimulating Hormone 1.55 uIU/mL (0.27-4.20); Total Bilirubin 0.2 mg/dL (0.15-1.2); Total Protein 7.1 g/dL (6.6-8.7)
[2021-07-06 08:15] LABS: Alanine Aminotransferase 16 U/L (0-33); Aspartate Amino Transferase 14 U/L (0-32)
[2021-07-06 08:40] VITALS: BP 100/62; BP 97/64; BP 97/67; PULSE 63; PULSE 73; PULSE 74
[2021-07-06] MEDS: sodium chloride 0.9% 1,000 ML 999 ML IV (08:40)
--- NOTE | 2021-07-06 09:04 | ECG_ITS ---
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 Measurements Intervals [place] Rate: 63 P: 63 CO: 147 QRS: 40 QRSD: 98 T: 122 QT: 432 QTc: 442 Interpretive Statements SINUS RHYTHM ST DEVIATION AND MODERATE T-WAVE ABNORMALITY, CONSIDER ANTEROLATERAL ISCHEMIA [-0.1+ mV T-WAVE IN V3-V6] Compared to ECG 07/06/2021 06:49:23 No significant changes Electronically Signed On 07-06-2021 18:06:55 CDT by Carlos A Nuñez M.D. [id number]
[2021-07-06 10:18] LABS: Troponin 5 2HR 47.42 ng/L (0-10)
[2021-07-06 10:23] LABS: Troponin 5 2HR Delta -3.58 ABS# (0-10)
== END 2021-07-06 11:16 | disposition home or self-care (01) ==
PROVIDERS: Emergency Provider Emergency Medicine; PCP Family Medicine
DX: R07.9 Chest pain, unspecified (principal); R20.2 Paresthesia of skin; E86.0 Dehydration; R94.4 Abnormal results of kidney function studies; F17.210 Nicotine dependence, cigarettes, uncomplicated; I10 Essential (primary) hypertension
CPT/HCPCS: 70450; 71045; 80053; 83690; 84443; 84484; 85025; 93005; 96360; 99284; J7030

== ENCOUNTER → 2021-08-18 16:58 | Outpatient (BNVA) | payer BC, SELFPAY | PROVIDERS: PCP Family Medicine; Visit Provider Family Medicine | DX: N92.6 Irregular menstruation, unspecified (principal); I10 Essential (primary) hypertension | CPT/HCPCS: 81025 ==

== ENCOUNTER 2022-04-13 16:41 | Inpatient (IN) | payer BC, SELFPAY ==
[2022-04-13 16:47] VITALS: BP 147/90; PULSE 113; RESP 16; TEMP 36.4; O2SAT 95; BMI 34.3
--- NOTE | 2022-04-13 17:07 | ED.C_ITS ---
HPI - Psych General: Chief Complaint: Psychiatric Symptoms Stated Complaint: MHE Time Seen by Provider: 04/13/22 17:07 History of Present Illness: Ms. Ortiz is a 46-year-old lady with history of hypertension, hyperlipidemia, PTSD, depression presenting to the emergency department for worsening paranoia suicidal ideation. She reports history of similar however was symptom free for a number of years and possibly due to stress including unexpected deaths in the family and health issues patient has not had recurrence of nightmares, poor sleep, paranoia episodes, anxiety which has worsened over the past few weeks. Density symptoms is severe and debilitating. She did present to crisis stabilization however was scared to start the medication secondary to her fianc? working at night and possible side effects being performing activities that she would not remember. Denies actual attempts at self-harm. No other specific changes in health, exacerbating, or alleviating factors identified. 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 Hx of nephrolithotomy with removal of calculi Hypertensive crisis Major depressive disorder, recurrent, moderate Nicotine dependence, cigarettes, uncomplicated Post-traumatic stress disorder, chronic Psychiatric care Surgical History History of removal of ovarian cyst Hx of cholecystectomy Hx of hernia repair Hx of lithotripsy Family History Other Psychiatric illness Social History Smoking and tobacco status: current every day smoker cigarettes Years cigarettes smoked: 25 Quit status (tobacco): has tried quititng Number of times tried to quit tob acco: 5 Second hand smoke exposure: No Additional social history: Denies regular alcohol use Denies current drug use Female Reproductive History: Date of last menstrual period: 05/30/21 Para: 0 Spontaneous abortions: Yes (all 6 pregnancies) Physical Exam Const: COMMON NORMALS: alert GENERAL APPEARANCE: cooperative and well developed HENMT: COMMON NORMALS: normocephalic and atraumatic HEAD & SCALP: normocephalic and atraumatic Eye: COMMON NORMALS: conjunctivae normal CONJUNCTIVA: Yes conjunctivae normal SCLERA: sclerae normal Neck/C-Spine: COMMON NORMALS: supple GENERAL: Yes trachea midline Resp: COMMON NORMALS: clear to auscultation bilaterally EFFORT & INSPECTION: Yes able to speak in complete sentences AUSCULTATION: clear to auscultation bilaterally Cardio: COMMON NORMALS: regular rate and regular rhythm RATE: regular rate RHYTHM: regular rhythm GI: COMMON NORMALS: Soft to palpation PALPATION: Yes Soft to palpation and No Tenderness to palpation present (GI) Extremity: GENERAL: Yes normal exam except as noted and No edema Neuro: COMMON NORMALS: moves all extremities SENSORIUM/ORIENTATION: Yes alert and No Orientation impaired Psych: COMMON NORMALS: mental status grossly normal and Normal thought process present THOUGHT PROCESS: Normal thought process present THOUGHT CONTENT: Yes delusions Course Vital Signs: Vital signs: Vital Signs Temperature 97.9 F 04/17/22 09:12 Pulse Rate 74 04/17/22 09:12 Respiratory Rate 17 04/17/22 09:12 Blood Pressure 131/100 04/17/22 09:14 Pulse Oximetry 98 04/17/22 09:12 Oxygen Delivery Me thod 04/16/22 21:31 [facility] - Psych Medical Decision Making 46-year-old lady with worsening psychiatric symptoms in the context of social stressors. She expresses paranoia and suicidal thoughts given current mental state. She is calm and cooperative, nontoxic on exam. Labs with minimal leukocytosis which is nonspecific, mild evidence of hyponatremia and dehydration, patient can adequately orally rehydrate. Toxic ingestions negative with exception of benzodiazepines on UDS. Prior imaging reviewed. Given clinical history no indication for repeat imaging at this time. Based on ED evaluation at this point there is no obvious condition that would preclude the patient from inpatient management psychiatric concerns/symptoms. Most likely etiology of patient's symptoms is paranoia and suicidal ideation secondary to psychiatric disorder. The results of ED evaluation were discussed with the patient including plan for admission due to requirement for level of care not available if discharged to prevent significant worsening/deterioration. Patient agreeable with plan. Discussed with psychiatry service who was agreeable to admit patient. Medical Records I reviewed the patient's medical records. Lab Data I reviewed the patient's lab results. 04/13/22 18:30 04/13/22 18:30 Laboratory Results WBC 11.5 10^3/uL (4.0-10.0) H 04/13/22 18:30 RBC 4.16 10^6/uL (4.1-5.3) 04/13/22 18: Hgb 13.2 g/dL (11.5-15.3) 04/13/22 18: Hct 40.0 % (37.0-47.0) 04/13/22 18: MCV 96.2 fl (81-99) 04/13/22 18: MCH 31.7 pg (28.0-34.0) 04/13/22 18: MCHC 33.0 g/dL (30.0-36.0) 04/13/22 18: RDW 15.4 % (12.1-15.1) H 04/13/22 18: Plt Count 372 10^3/cmm (130-400) 04/13/22 18: MPV 8.4 fL (7.4-10.4) 04/13/22 18: Neut % (Auto) 60.1 % 04/13/22 18: Lymph % (Auto) 29.6 % 04/13/22 18: [place] % (Auto) 6.1 % 04/13/22 18: Eos % (Auto) 3.7 % 04/13/22 18: Baso % (Auto) 0.3 % 04/13/22 18: Neut # (Auto) 6.88 10^3/uL (1.8-7.7) 04/13/22 18: Lymph # (Auto) 3.4 10^3/uL (0.8-4.8) 04/13/22 18: [place] # (Auto) 0.7 10^3/uL (0.2-0.9) 04/13/22 18: Eos # (Auto) 0.4 10^3/uL (0.0-0.8) 04/13/22 18: Baso # (Auto) 0.0 10^3/uL (0.0-0.1) 04/13/22 18:30 Nucleated RBC % (auto) 0 % 04/13/22 18:30 Nucleated RBCs # 0.0 /100WBC 04/13/22 18:30 Sodium 132 mmol/L (136-145) L 04/13/22 18:30 Potassium 4.1 mmol/L (3.5-5.1) 04/13/22 18:30 Chloride 100 mmol/L (98-107) 04/13/22 18:30 Carbon Dioxide 21 mmol/L (22-29) L 04/13/22 18:30 Anion Gap 15.1 (5-19) 04/13/22 18:30 BUN 8 mg/dL (6-20) 04/13/22 18:30 Creatinine 0.8 mg/dL (0.5-0.9) 04/13/22 18:30 GFR Calculation 77.2 mL/min (90-130) L 04/13/22 18:30 Glucose 64 mg/dL (65-115) L 04/13/22 18:30 Calculated Osmolality 270 mOsm/kg (285-295) L 04/13/22 18:30 Calcium 8.7 mg/dL (8.5-10.5) 04/13/22 18:30 Total Bilirubin 0.2 mg/dL (0.15-1.2) 04/13/22 18:30 AST 14 U/L (0-32) 04/13/22 18:30 ALT 17 U/L (0-33) 04/13/22 18:30 Alkaline Phosphatase 93 U/L (35-105) 04/13/22 18:30 Total Protein 7.0 g/dL (6.6-8.7) 04/13/22 18:30 Albumin 4.1 g/dL (3.5-5.2) 04/13/22 18:30 Globulin 2.9 g/dL (1.3-4.6) 04/13/22 18:30 TSH 2.50 uIU/mL (0.27-4.20) 04/13/22 18:30 HCG, Qual Negative (Negative) 04/13/22 18:48 Salicylates < 0.3 mg/dL (3-10) L 04/13/22 18:30 Urine Opiates Screen Negative ng/mL (Negative) 04/13/22 18:48 Acetaminophen < 5.0 ug/mL (10-30) L 04/13/22 18:30 Ur Barbiturates Screen Negative ng/mL (Negative) 04/13/22 18:48 Ur Phencyclidine Scrn Negative ng/mL (Negative) 04/13/22 18:48 Ur Amphetamines Screen Negative ng/mL (Negative) 04/13/22 18:48 U Benzodiazepines Scrn Positive ng/mL (Negative) H 04/13/22 18:48 Urine Cocaine Screen Negative ng/mL (Negative) 04/13/22 18:48 U Marijuana (THC) Screen Negative ng/mL (Negative) 04/13/22 18:48 Ethyl Alcohol < 10 mg/dL (0-10) 04/13/22 18:30 Discharge Plan Discharge Patient Disposition: Admitted As Inpatient Admit Provider: Sherman Merida Clinical Impression: Paranoia, Depression with suicidal ideation Condition: Stable Discharge Diet: Regular Discharge Activity: Resume usual activity Coding Level of Care Code ED Communications Officer for Scotty Lewis
--- NOTE | 2022-04-13 18:17 | PC.NURSE ---
ATTEMPTED REPORT NURSE UNAVAILABLE.
[2022-04-13 18:44] LABS: Basophils % 0.3 %; Eosinophils # 0.4 10^3/uL (0.0-0.8); Eosinophils % 3.7 %; Hemoglobin 13.2 g/dL (11.5-15.3); Lymphocytes # 3.4 10^3/uL (0.8-4.8); Lymphocytes % 29.6 %; Mean Corpuscular Hemoglobin 31.7 pg (28.0-34.0); Mean Corpuscular Volume 96.2 fl (81-99); Mean Platelet Volume 8.4 fL (7.4-10.4); Monocytes # 0.7 10^3/uL (0.2-0.9); Monocytes % 6.1 %; Neutrophils # 6.88 10^3/uL (1.8-7.7); Neutrophils % 60.1 %; Nucleated Red Blood Cells % 0 %; Platelet Count 372 10^3/cmm (130-400); Red Blood Count 4.16 10^6/uL (4.1-5.3); Red Cell Distribution Width 15.4 % (12.1-15.1); White Blood Count 11.5 10^3/uL (4.0-10.0)
[2022-04-13 19:11] LABS: Alanine Aminotransferase 17 U/L (0-33); Albumin Level 4.1 g/dL (3.5-5.2); Alkaline Phosphatase 93 U/L (35-105); Aspartate Amino Transferase 14 U/L (0-32); Blood Urea Nitrogen 8 mg/dL (6-20); Calcium 8.7 mg/dL (8.5-10.5); Carbon Dioxide 21 mmol/L (22-29); Chloride 100 mmol/L (98-107); Globulin 2.9 g/dL (1.3-4.6); Glomerular Filtration Rate 77.2 mL/min (90-130); Glucose 64 mg/dL (65-115); Osmolality Calculated 270 mOsm/kg (285-295); Sodium 132 mmol/L (136-145); Total Bilirubin 0.2 mg/dL (0.15-1.2)
[2022-04-13 19:16] LABS: Acetaminophen < 5.0 ug/mL (10-30); Alcohol Level < 10 mg/dL (0-10); Anion Gap 15.1 (5-19); Potassium 4.1 mmol/L (3.5-5.1); Salicylate < 0.3 mg/dL (3-10)
[2022-04-13 19:18] LABS: HCG Qualitative Urine. Negative (Negative)
[2022-04-13 19:21] LABS: Amphetamines Screen Urine Negative (Negative); Barbiturates Screen Urine Negative (Negative); Benzodiazepines Screen Urine Positive (Negative); Cocaine Screen Urine Negative (Negative); Opiate Screen Urine Negative (Negative); PCP Screen Urine Negative (Negative); THC Screen Urine Negative (Negative)
[2022-04-13] MEDS: hyDROXYzine 25 mg Capsule PO (19:45)
[2022-04-13 19:48] VITALS: BP 110/77; PULSE 77; RESP 17; TEMP 36.8; O2SAT 93
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
[2022-04-13 21:13] VITALS: BP 121/86; PULSE 79; RESP 18; TEMP 36.4; O2SAT 97
[2022-04-13] MEDS: efferdent effervescent 1 EACH DENTAL (21:33)
[2022-04-13] MEDS: hyDROXYzine 25 mg Capsule 50 MG PO (21:33)
[2022-04-13 23:25] VITALS: BP 121/85
--- NOTE | 2022-04-13 23:25 | PC.NURSE ---
pt not given 2100 meds due to sleeping and not wanting to be disturbed.
[2022-04-14 06:00] VITALS: RESP 16
[2022-04-14] MEDS: spironolactone 25 mg Tablet 50 MG PO ×2 (08:50→17:55)
[2022-04-14] MEDS: lisinopril 20 mg Tablet PO (08:50)
[2022-04-14] MEDS: hyDRALAzine 10 mg Tablet PO ×3 (08:50→21:52)
[2022-04-14] MEDS: NIFEdipine 10 mg Capsule PO ×3 (08:50→21:52)
[2022-04-14] MEDS: citalopram 20 mg Tablet 40 MG PO (08:50)
[2022-04-14] MEDS: ARIPiprazole 10 mg Tablet PO (08:51)
[2022-04-14] MEDS: cloNIDine 0.1 mg Tablet 0.2 MG PO ×3 (08:51→21:51)
[2022-04-14] MEDS: acetaminophen 325 mg Tablet 650 MG PO ×2 (12:21→21:52)
[2022-04-14 14:00] VITALS: BP 140/84; PULSE 92; RESP 18; TEMP 36.6; O2SAT 96
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
[2022-04-14] MEDS: nicotine 4 mg lozenge MUCOUS MEM (17:09)
[2022-04-14 19:52] VITALS: BP 150/93; PULSE 86; RESP 20; TEMP 36.3; O2SAT 97
[2022-04-14 21:51] VITALS: BP 150/93
--- NOTE | 2022-04-15 02:56 | PC.NURSE ---
pt isolative, withdrawn, reported not feeling well running nose, congested, mucinex ordered. she has been resting in room all shift.
[2022-04-15 06:00] VITALS: RESP 17
[2022-04-15] MEDS: ARIPiprazole 10 mg Tablet 15 MG PO (09:21)
[2022-04-15] MEDS: NIFEdipine 10 mg Capsule PO ×3 (09:22→20:28)
[2022-04-15] MEDS: hyDRALAzine 10 mg Tablet PO ×3 (09:22→20:28)
[2022-04-15] MEDS: spironolactone 25 mg Tablet 50 MG PO ×2 (09:22→17:12)
[2022-04-15] MEDS: citalopram 20 mg Tablet 40 MG PO (09:24)
[2022-04-15] MEDS: lisinopril 20 mg Tablet PO (09:24)
[2022-04-15] MEDS: nicotine 21 mg Patch 1 PATCH TRANSDERMA (09:24)
[2022-04-15] MEDS: guaiFENesin 600 mg Tablet PO ×2 (09:24→17:12)
[2022-04-15] MEDS: cloNIDine 0.1 mg Tablet 0.2 MG PO ×3 (10:16→20:27)
[2022-04-15] MEDS: acetaminophen 325 mg Tablet 650 MG PO ×2 (12:12→20:31)
[2022-04-15 14:00] VITALS: RESP 17
--- NOTE | 2022-04-15 16:49 | W.PM.NPUPNS ---
Subjective NPU Subjective: Patient presented today reporting that she is feeling under the weather likely come down with a URI. Otherwise reports feeling a little better with the increase in her Abilify. We discussed continue to monitor for improvement. She was eating and sleeping okay and denies any new concerns. Mental Status Exam MSE Comments: This is an obese white female in hospital scrubs with adequate grooming and eye contact. No abnormal movements except for psychomotor retardation. Cooperative with exam in mild distress. Speech was normal rate and slightly decreased volume. Mood described as a little better but feeling sick, affect is congruent. Thought process, organized. Thought content: patient denies suicidal or homicidal ideation, no delusions noted or reported and denies any auditory or visual hallucinations. Attention and concentration are intact and memory appeared reliable but none were formally tested. She is alert and oriented times three. Insight and judgment are fair. Impulse control is fair. Vitals/I&O/Wt Last Vital Signs Temp 98.6 F 04/15/22 21:26 Pulse 84 04/15/22 21:26 Resp 17 04/15/22 21:26 BP 156/111 04/15/22 21:26 Pulse Ox 97 04/15/22 21:26 O2 Del Method 04/15/22 21:26 Data NPU 04/13/22 18:30 04/13/22 18:30 A&P Assessment and plan (1) Paranoia: (2) Post-traumatic stress disorder, chronic: (3) Generalized anxiety disorder: (4) Major depressive disorder, recurrent, moderate: (5) Nicotine dependence, cigarettes, with other nicotine-induced disorders: Plan This is a 46 year old woman with a history of trauma, depression, anxiety, ptsd and genetic loading for mental health and addiction issues who presents reporting some success on her current medications with breakthrough paranoia and open to changes in her medications at this time. 1. Continue current medications. Increased Abilify to 15 mg p.o. every morning 2. Encourage individual, group and milieu therapy 3. Continue q-15 minute check for safety. Involuntary Hold Information 96 Hour Hold: 96 Hour Involuntary Admission: No Attestations NPU Medical Necessity Statement*: Inpatient hospitalization is medically necessary and the clinically appropriate intervention at this time. We will monitor medications and make changes as indicated. Likely length of stay is 2-4 days Coding Level of Care Code Acute Code for [facility] Diagnoses Paranoia F22 Post-traumatic stress disorder, chronic F43.12 Generalized anxiety disorder F41.1 Major depressive disorder, recurrent, moderate F33.1 Nicotine dependence, cigarettes, with other nicotine-induced disorders F17.218
[2022-04-15] MEDS: hyDROXYzine 25 mg Capsule 50 MG PO (20:32)
[2022-04-15 21:26] VITALS: BP 156/111; PULSE 84; RESP 17; TEMP 37; O2SAT 97
[2022-04-16 09:31] VITALS: BP 148/103
[2022-04-16] MEDS: nicotine 21 mg Patch 1 PATCH TRANSDERMA (09:31)
[2022-04-16] MEDS: guaiFENesin 600 mg Tablet PO ×2 (09:31→18:15)
[2022-04-16] MEDS: cloNIDine 0.1 mg Tablet 0.2 MG PO ×3 (09:31→21:50)
[2022-04-16] MEDS: NIFEdipine 10 mg Capsule PO ×3 (09:32→21:53)
[2022-04-16] MEDS: acetaminophen 325 mg Tablet 650 MG PO ×2 (09:32→18:21)
[2022-04-16] MEDS: lisinopril 20 mg Tablet PO (09:32)
[2022-04-16] MEDS: spironolactone 25 mg Tablet 50 MG PO ×2 (09:32→18:15)
[2022-04-16] MEDS: citalopram 20 mg Tablet 40 MG PO (09:32)
[2022-04-16] MEDS: hyDRALAzine 10 mg Tablet PO ×3 (09:32→21:53)
[2022-04-16] MEDS: ARIPiprazole 10 mg Tablet 15 MG PO (09:33)
[2022-04-16 14:00] VITALS: BP 157/98; PULSE 92; RESP 16; TEMP 36.6; O2SAT 98
[2022-04-16 15:14] VITALS: BP 157/98
--- NOTE | 2022-04-16 18:20 | W.PM.NPUPNS ---
Subjective NPU Subjective: Patient presented today reporting that she does not feel the flu bug like she thought she was feeling yesterday. She reports that she feels the medications have been helpful and that she is certainly not feeling paranoia now and feeling more like herself. We discussed risks, benefits and alternatives of considering discharge tomorrow and she understood and agreed to proceed as is documented in this note. Mental Status Exam MSE Comments: This is an obese white female in hospital scrubs with adequate grooming and eye contact. No abnormal movements except for psychomotor retardation. Cooperative with exam in mild distress. Speech was normal rate and slightly decreased volume. Mood described as much better, affect is congruent. Thought process, organized. Thought content: patient denies suicidal or homicidal ideation, no delusions noted or reported and denies any auditory or visual hallucinations. Attention and concentration are intact and memory appeared reliable but none were formally tested. She is alert and oriented times three. Insight and judgment are fair. Impulse control is fair. Vitals/I&O/Wt Last Vital Signs Temp 97.9 F 04/16/22 21:31 Pulse 74 04/16/22 21:31 Resp 17 04/16/22 21:31 BP 146/99 04/16/22 21:31 Pulse Ox 98 04/16/22 21:31 O2 Del Method 04/16/22 21:31 Data NPU 04/13/22 18:30 04/13/22 18:30 A&P Assessment and plan (1) Paranoia: (2) Post-traumatic stress disorder, chronic: (3) Generalized anxiety disorder: (4) Major depressive disorder, recurrent, moderate: (5) Nicotine dependence, cigarettes, with other nicotine-induced disorders: Plan This is a 46 year old woman with a history of trauma, depression, anxiety, ptsd and genetic loading for mental health and addiction issues who presents reporting some success on her current medications with breakthrough paranoia and open to changes in her medications at this time. 1. Continue current medications. Increased Abilify to 15 mg p.o. every morning 2. Encourage individual, group and milieu therapy 3. Continue q-15 minute check for safety. Involuntary Hold Information 96 Hour Hold: 96 Hour Involuntary Admission: No Attestations NPU Medical Necessity Statement*: Inpatient hospitalization is medically necessary and the clinically appropriate intervention at this time. We will monitor medications and make changes as indicated. Likely length of stay is 1-3 days. Tentative plan for discharge tomorrow. Coding Level of Care Code Acute Code for g Fwd Diagnoses Paranoia F22 Post-traumatic stress disorder, chronic F43.12 Generalized anxiety disorder F41.1 Major depressive disorder, recurrent, moderate F33.1 Nicotine dependence, cigarettes, with other nicotine-induced disorders F17.218
[2022-04-16 21:31] VITALS: BP 146/99; PULSE 74; RESP 17; TEMP 36.6; O2SAT 98
[2022-04-16] MEDS: trazodone 100 mg Tablet PO (21:51)
[2022-04-16] MEDS: hyDROXYzine 25 mg Capsule 50 MG PO (21:51)
[2022-04-17] MEDS: acetaminophen 325 mg Tablet 650 MG PO (00:51)
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
[2022-04-17 09:12] VITALS: BP 146/99; PULSE 74; RESP 17; TEMP 36.6; O2SAT 98
[2022-04-17] MEDS: ARIPiprazole 10 mg Tablet 15 MG PO (09:13)
[2022-04-17] MEDS: nicotine 21 mg Patch 1 PATCH TRANSDERMA (09:13)
[2022-04-17 09:14] VITALS: BP 131/100
[2022-04-17] MEDS: guaiFENesin 600 mg Tablet PO (09:14)
[2022-04-17] MEDS: citalopram 20 mg Tablet 40 MG PO (09:14)
[2022-04-17] MEDS: NIFEdipine 10 mg Capsule PO (09:14)
[2022-04-17] MEDS: cloNIDine 0.1 mg Tablet 0.2 MG PO (09:14)
[2022-04-17] MEDS: spironolactone 25 mg Tablet 50 MG PO (09:14)
[2022-04-17] MEDS: lisinopril 20 mg Tablet PO (09:14)
[2022-04-17] MEDS: hyDRALAzine 10 mg Tablet PO (09:14)
--- NOTE | 2022-04-17 09:40 | PC.NURSE ---
Discharge information reviewed with patient. Pt verbalized her understanding. Stated she felt ready to go home. Denied suicidal/homicidal thoughts. Belongings and medications reviewed and returned to pt when arrived to take pt home. Pt left ambulatory accompanied by spouse at 0950. Pt denied complaints.
== END 2022-04-17 09:50 | disposition home or self-care (01) | DRG 885 ==
LOC: ER 17:58 → NP 19:11
PROVIDERS: Admitting Provider Psychiatry & Neurology Psychiatry; Emergency Provider Emergency Medicine; PCP Family Medicine; Visit Provider Psychiatry & Neurology Psychiatry
DX: F22 Delusional disorders (principal); F33.1 Major depressive disorder, recurrent, moderate; R45.851 Suicidal ideations; I10 Essential (primary) hypertension; E78.5 Hyperlipidemia, unspecified; F43.12 Post-traumatic stress disorder, chronic; F17.210 Nicotine dependence, cigarettes, uncomplicated; Z88.0 Allergy status to penicillin; F41.1 Generalized anxiety disorder
CPT/HCPCS: 36415; 80053; 80306; 80307; 81025; 84443; 85025; 97150; 97165; 99238; 99285

== ENCOUNTER 2022-08-16 09:22 | Emergency (ER) | payer BC, SELFPAY ==
[2022-08-16 09:28] VITALS: BP 154/110; PULSE 101; RESP 18; TEMP 36.9; O2SAT 94; BMI 34.3
[2022-08-16] MEDS: lidocaine 1% INJ 10 mL (per mL) 5 ML INJECTION (09:34)
--- NOTE | 2022-08-16 10:06 | W.ED.SKABFB ---
HPI - Skin/Abscess/Foreign Bdy General: Chief complaint: Dental/Oral Stated complaint: Lip piercing issue Time Seen by Provider: 08/16/22 09:28 Source: patient Mode of arrival: ambulatory Limitations: no limitations History of Present Illness: 46-year-old female presents to the ER today for a lip ring that is infected and stuck in her lip. Patient reports it got infected a couple of weeks ago and grew over where she could not remove the back. Patient reports it is very tender and draining pus. Denies any infections. Reports minimal swelling. Patient reports she has had this for many years and never had any issues. Patient has tried removing at home but is unable to poke the back through the lip. 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 Hx of nephrolithotomy with removal of calculi Hypertensive crisis Major depressive disorder, recurrent, moderate Nicotine dependence, cigarettes, uncomplicated Post-traumatic stress disorder, chronic Psychiatric care Surgical History History of removal of ovarian cyst Hx of cholecystectomy Hx of hernia repair Hx of lithotripsy Family History Other Psychiatric illness Denies family history of Diabetes CAD (coronary artery disease) Chronic kidney disease (CKD) Cancer Hypertension Stroke Female Reproductive History: Para: 0 Spontaneous abortions: Yes (all 6 pregnancies) Physical Exam Const: COMMON NORMALS: no acute distress, average body habitus, patient oriented x3, no limitations, healthy appearing, alert and well nourished HENMT: OTHER: Patient has a lip ring in the left side of her upper lip that has grown over the inside and she is unable to remove it. There does appear to be some mild erythema and swelling and pus. Neck/C-Spine: COMMON NORMALS: no lymphadenopathy Resp: COMMON NORMALS: normal respiratory effort and No retractions EFFORT & INSPECTION: Yes able to speak in complete sentences Cardio: COMMON NORMALS: regular rate and regular rhythm RATE: regular rate RHYTHM: regular rhythm Extremity: COMMON NORMALS: normal to inspection and full ROM Neuro: COMMON NORMALS: patient oriented x3 SENSORIUM/ORIENTATION: Yes alert Psych: COMMON NORMALS: mental status grossly normal, Normal thought process present and cooperative THOUGHT PROCESS: Normal thought process present Skin: COMMON NORMALS: no rashes or lesions noted NARRATIVE SKIN EXAM: see mouth exam GENERAL SKIN EXAM: no rashes or lesions noted Procedures Foreign Body Removal Time Out Performed: no Site: left and other (upper lip/oral) Description of foreign body: other (lip ring) Sedation/Analgesia: none and other (1% lidocaine without epi) Technique: incision made to facilitate removal Confirmed by:: direct visualization Complications: none Course ED course: Patient presents for a foreign body in the left upper lip. This is a lip ring that became infected and grew over on the inside and patient is now unable to remove it. It is tender and has pus coming from the outside. She has not been on any antibiotics for this. Vital Signs: Vital signs: Vital Signs Temperature 98.4 F 08/16/22 09:28 Pulse Rate 101 H 08/16/22 09:28 Respiratory Rate 18 08/16/22 09:28 Blood Pressure 154/110 08/16/22 09:28 Pulse Oximetry 94 08/16/22 09:28 Oxygen Delivery Me thod Room Air 08/16/22 09:28 MDM - Skin/Abscess/Foreign Bdy Medicial Decision Making Patient would like this lip ring removed at this time. We numbed patient with lidocaine and made 1/2 cm incision. A second small T incision had to be made in order to view the larger backside of the ring. We were able to completely remove the ring and all parts to it. A 4-0 Vicryl suture was placed x1 to stop bleeding. Wound care was discussed. We will place patient on Flagyl and Keflex to cover for any mouth infections. Patient to follow-up with PCP in 5 to 7 days. For any new or worsening symptoms return to the ER. Patient verbalized understanding and was in agreement with the treatment plan. Critical Care Time Critical Care Time: Critical Care Time: No Discharge Plan Discharge Patient Disposition: Home Clinical Impression: Foreign body in lip Qualifiers: Encounter type: initial encounter Qualified Code(s): S00.551A - Superficial foreign body of lip, initial encounter Condition: Stable Prescriptions: New cephalexin 500 mg capsule 500 mg PO BID 7 Days Qty: 14 0RF metronidazole 500 mg tablet 500 mg PO BID 7 Days Qty: 14 0RF No Action nicotine (polacrilex) 4 mg gum 4 mg buccal Q2H Qty: 100 2RF nicotine 21-14-7 mg/24 hr patch, TD daily, sequential See Rx Instructions transdermal .COMPLEX Qty: 56 0RF Rx Instructions: apply 1-21 mg NICOTINE PATCH daily for 28 days; follow with 1-14 mg PATCH daily for 14 days, then 1-7mg PATCH daily for 14 days transdermal albuterol sulfate 90 mcg/actuation aerosol powdr breath activated 2 inh INHALATION Q6H PRN (Reason: shortness of breath or wheezing) Qty: 1 1RF hydroxyzine HCl 50 mg tablet 50 - 100 mg PO BEDTIME@2200 PRN (Reason: Anxiety) Qty: 90 1RF spironolactone 25 mg tablet 50 mg PO BID 30 Days Qty: 180 1RF buspirone 10 mg tablet 10 mg PO BID PRN (Reason: anxiety) Qty: 60 3RF Rx Instructions: May take 1/2 to tab PO two times a day as needed for anxiety. hydralazine 10 mg tablet 10 mg PO TID Qty: 270 1RF lisinopril 20 mg tablet 20 mg PO DAILY Qty: 90 1RF nifedipine 10 mg capsule 10 mg PO TID 30 Days Qty: 270 1RF citalopram 40 mg tablet 40 mg PO DAILY Qty: 90 1RF aripiprazole 10 mg tablet 15 mg PO DAILY 30 Days Qty: 45 5RF duloxetine 30 mg capsule,delayed release(DR/EC) 30 mg PO DAILY 30 Days Qty: 30 0RF duloxetine 60 mg capsule,delayed release(DR/EC) 60 mg PO DAILY Qty: 30 0RF Rx Instructions: Start after 1 month on 30 mg trazodone 100 mg tablet 100 mg PO BEDTIME PRN (Reason: Sleep) Qty: 30 2RF ondansetron 4 mg tablet,disintegrating See Rx Instructions .ROUTE .COMPLEX Qty: 14 0RF Dose Instruction: DISSOLVE ONE TABLET BY MOUTH EVERY TWELVE HOURS NEEDED FOR NAUSEA AND VOMITING Rx Instructions: DISSOLVE ONE TABLET BY MOUTH EVERY TWELVE HOURS NEEDED FOR NAUSEA AND VOMITING clonidine HCl 0.1 mg tablet See Rx Instructions .ROUTE .COMPLEX Qty: 90 1RF Dose Instruction: TAKE ONE TABLET BY MOUTH THREE TIMES DAILY Rx Instructions: TAKE ONE TABLET BY MOUTH THREE TIMES DAILY Discharge Orders: Discharge ED (Routine); Ordered 08/16/22 Ordered By: Jeri Gómez Referrals: Jean Iniguez DO [Primary Care Provider] - Discharge Diet: Advance as tolerated Discharge Activity: Resume usual activity Patient Instructions: Opioid Safety, Pain Management Activity Restrictions/Additional Instructions: Take antibiotics as prescribed. Follow-up with PCP in 5 to 7 days for follow-up and removal of suture if it does not absorb. Return to the ER with new or worsening symptoms. Coding Level of Care Code ED [employer] for [employer]
[2022-08-16 10:30] VITALS: BP 141/99; PULSE 85; RESP 18; O2SAT 98
== END 2022-08-16 10:31 | disposition home or self-care (01) ==
PROVIDERS: Emergency Provider Physician Assistant; PCP Family Medicine
DX: S00.551A Superficial foreign body of lip, initial encounter (principal); W45.8XXA Other foreign body or object entering through skin, initial encounter
CPT/HCPCS: 10120; 99283

== ENCOUNTER → 2022-08-20 14:31 | Outpatient (BNVA) | payer BC, SELFPAY | PROVIDERS: PCP Family Medicine; Visit Provider Emergency Medicine | DX: R05.9 Cough, unspecified (principal) | CPT/HCPCS: 87400 ==

== ENCOUNTER 2022-09-29 14:15 | Observation (INO) | payer BC, SELFPAY ==
[2022-09-29 14:19] VITALS: BP 118/76; PULSE 113; RESP 14; TEMP 36.8; O2SAT 98; BMI 34.3
--- NOTE | 2022-09-29 16:31 | CTR_ITS ---
PROCEDURE INFORMATION: Exam: CT Head Without Contrast Exam date and time: 09/29/2022 4:39 PM Age: 46 years old Clinical indication: Pain; Headache; Additional info: Headache vision loss TECHNIQUE: Imaging protocol: Computed tomography of the head without contrast. Radiation optimization: All CT scans at this facility use at least one of these dose optimization techniques: automated exposure control; mA and/or kV adjustment per patient size (includes targeted exams where dose is matched to clinical indication); or iterative reconstruction. REPORTING DATA: Count of CT and Cardiac NM exams in prior 12 months: This patient has received 0 known CTs and 0 known cardiac nuclear medicine studies in the 12 months prior to the current study. COMPARISON: CT head wo con* [id number] 07/06/2021 7:40 AM RADIATION DOSE METRICS: Total DLP (mGy-cm): 1150.93 FINDINGS: Brain: Normal. No hemorrhage. Unremarkable white matter. No mass effect. Cerebral ventricles: No ventriculomegaly. Paranasal sinuses: Visualized sinuses are unremarkable. No fluid levels. Mastoid air cells: Visualized mastoid air cells are well aerated. Bones/joints: Unremarkable. No acute fracture. Soft tissues: Unremarkable. CT/CT head wo con* [id number] IMPRESSION: No acute intracranial abnormality.
--- NOTE | 2022-09-29 16:51 | ED_ITS ---
Documented by User: Mesfin Garcia DO 09/30/22 06:48 HPI - Dizziness General: Chief Complaint: Dizziness Stated Complaint: dizz Time Seen by Provider: 09/29/22 16:28 Source: patient Mode of arrival: ambulatory History of Present Illness: HPI Narrative: 46-year-old female who presents to the emergency room with complaints of lightheadedness dizziness particularly when she stands up. She has had a headache off and on for the last 5 days. She has a history of difficult to control blood pressure and is on multiple medications. She has taken all of her blood pressure medicines today. She states that when she has the visual disturbances she will lose vision in both eyes she will have a sense of near syncope this often occurs when she first stands up. She has no associated vomiting. She does get somewhat dizzy with that. MD elicited complaint: dizziness and near syncope Pertinent past history: other (HTN) Onset (ago): day(s) (5) Severity: mild Description: sense of movement and lightheadedness Context: change in body position Exacerbating factors: change in body position Relieving factors: remaining still and rest Associated symptoms: Denies abnormal vaginal bleeding, chest pain, chills, cough, diaphoresis, ear pressure, fevers/chills, headache(s), malaise, nausea, palpitations, rash, short of breath, syncope, vomiting or weakness Associated neuro symptoms: Deny confusion, difficulty speaking, dysphagia, diplopia, extremity weakness, facial numbness, facial weakness, gait changes, numbness in extremities or visual changes Review of Systems Const: Denies: fever(s), chills, fatigue, malaise or diaphoresis Eyes: Reports: change in vision Card: Denies: chest pain, palpitations or syncope Resp: Denies: dyspnea, productive cough or non-productive cough GI: Denies: abdominal pain, nausea, vomiting or dysphagia : Denies: flank pain, difficulty voiding, dysuria, urinary frequency or urinary urgency Skin/Breast: Denies: rash or pruritus Neuro: Denies: headache(s), numbness in extremities or confusion [facility] PFSH: Medical History (Updated 09/29/22 @ 23:42 by Rex Duarte MD) Asthma Generalized anxiety disorder 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 Hx of nephrolithotomy with removal of calculi Hypertensive crisis Major depressive disorder, recurrent, moderate Missed periods Nicotine dependence, cigarettes, uncomplicated Oral abscess Post-traumatic stress disorder, chronic Psychiatric care Surgical History History of removal of ovarian cyst Hx of cholecystectomy Hx of hernia repair Hx of lithotripsy Family History (Updated 09/29/22 @ 23:42 by Rex Duarte MD) Other CAD (coronary artery disease) Cancer Hypertension Psychiatric illness Stroke Denies family history of Diabetes Chronic kidney disease (CKD) Social History (Updated 09/29/22 @ 23:43 by Rex Duarte MD) Smoking and tobacco status: current every day smoker cigarettes Packs smoked per day: 1 Years cigarettes smoked: 25 Alcohol intake: never Caregiver/support person: Yes Lives independently: Yes Household members: significant other Housing: House Current occupational status: employed Female Reproductive History: Para: 0 Spontaneous abortions: Yes (all 6 pregnancies) Physical Exam Const: COMMON NORMALS: no acute distress GENERAL APPEARANCE: cooperative and comfortable ORIENTATION/CONSCIOUSNESS: Yes awake, Yes oriented to person, Yes oriented to place and Yes oriented to time HENMT: COMMON NORMALS: normocephalic, atraumatic and hearing grossly normal bilaterally HEAD & SCALP: normocephalic and atraumatic Resp: COMMON NORMALS: normal respiratory effort, No retractions, No use of accessory muscles and clear to auscultation bilaterally AUSCULTATION: clear to auscultation bilaterally Cardio: COMMON NORMALS: regular rate, regular rhythm and No murmurs present (Cardio) RATE: regular rate RHYTHM: regular rhythm GI: COMMON NORMALS: Soft to palpation and No hepatosplenomegaly present AUSCULTATION: Yes normoactive bowel sounds PALPATION: Yes Soft to palpation, No Tenderness to palpation present (GI), No Guarding due to palpation present (GI) and Yes No hepatosplenomegaly present Extremity: COMMON NORMALS: normal to inspection, capillary refill normal, no clubbing, cyanosis or edema, no calf tenderness and no pedal edema Neuro: SENSORIUM/ORIENTATION: Yes oriented to person, Yes oriented to place and Yes oriented to time Skin: COMMON NORMALS: no rashes or lesions noted GENERAL SKIN EXAM: no rashes or lesions noted Course Vital Signs: Vital signs: Vital Signs Temperature 98.6 F 09/30/22 04:52 Pulse Rate 87 09/30/22 04:52 Respiratory Rate 18 09/30/22 04:52 Blood Pressure 128/85 09/30/22 04:52 Pulse Oximetry 97 09/30/22 04:52 Oxygen Delivery Me thod Room Air 09/29/22 17:15 MDM - Dizziness Medical Decision Making Patient has had symptoms for 5 days now intermittently. Initial CT does not show any subacute ischemic areas and no acute changes. Her symptoms are quite concerning CTA of the head and neck is pending. She is out of the window for treatment for tPA or embolectomy based on length of time however her symptoms are still varying. When I examined her she does not have any visual field defi cits at the moment. CTA head and neck is pending. Care signed out to Dr. Hi at change of shift. See final notes for diagnosis and disposition. Patient presents with dizziness been going on for weeks she had some visual deficits as well. She is out of the treatment window for tPA. CT angio did show a occlusion of her internal carotid artery she also has a left upper lobe mass in her lung. Spoke to the hospitalist will admit at this time. Lab Data 09/29/22 16:59 09/29/22 16:[address] 09/29/22 16:31 IMPRESSION: No acute intracranial abnormality. Head/Neck CTA 09/29/22 16:52 IMPRESSION: 1. The left internal carotid is more faintly opacified in the right side likely related to retrograde opacification. 2. 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 There is a 3 mm inferiorly projecting aneurysm at the level of the anterior communicating artery. 3. The non dominant right vertebral artery terminates in the PICA which can be seen as an anatomic variant. IMPRESSION: 1. 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 2. Spiculated left upper lobe mass measuring 2.2 cm suspicious for lung malignancy. There are mildly prominent mediastinal lymph nodes also present which may be metastatic. Recommend clinical correlation. REFERENCES: NASCET CRITERIA. The degree of stenosis in the cervical segment of the internal carotid artery is based on NASCET criteria. Normal is no stenosis. Mild is less than 50% stenosis. Moderate is 50-69% stenosis. Severe is 70% to 99% stenosis. Total occlusion is no detectable patent lumen. ADDENDUM: 09/29/22 1850 Addendum: The age of the left internal carotid artery occlusion is indeterminate. Correlate with history. There is severe atherosclerotic disease at this level. Posterior to the left upper lobe mass there is also a smaller nodule measuring 6 mm abutting the fissure on series 4, image 11. Recommend attention on follow-up. THIS REPORT CONTAINS FINDINGS THAT MAY BE CRITICAL TO PATIENT CARE. The findings were verbally communicated via telephone conference with Dr Hi at 6:48 PM CDT on 09/29/2022. The findings were acknowledged and understood. Chest X-Ray 09/29/22 18:50 IMPRESSION: Left upper lobe mass measuring 2.2 cm again visualized. This is again suspicious for malignancy and can be further evaluated with dedicated chest CT. Chest CT 09/29/22 22:43 IMPRESSION: Spiculated left upper lobe mass with adjacent smaller satellite nodule measuring 6 mm is unchanged with the comparison CTA. This is again suspicious for malignancy. On chest imaging there are faint ground-glass nodules in the lung apices which may be infectious/inflammatory. Stable mildly prominent mediastinal lymph nodes which are indeterminate. Correlate with clinical symptoms and recommend follow-up. Highly suspicious nodule(s). Consider non-emergent PET/CT, or tissue sampling.(Reference: Kwabena) COMMENTS: Consistent with the [place] [employer]'s Incidental Findings Committee white paper (J Am [place] [employer]iol 2017): For any incidental adrenal lesion greater than or equal to 1 cm but less than or equal to 4 cm classified in this report as benign, likely benign, or containing fat (including classification as an adenoma or myelolipoma), no follow-up imaging is recommended per consensus recommendations based on imaging criteria. Further lab evaluation could be pursued if warranted based on clinical findings. REFERENCES: Kwabena Mg, et al. Guidelines for Management of Incidental Pulmonary Nodules Detected on CT Images: From the Fleischner Society 2017. Radiology. 2017;284(1):228-243. Laboratory Results WBC 10.8 10^3/uL (4.0-10.0) H 09/29/22 16:59 RBC 4.51 10^6/uL (4.1-5.3) 09/29/22 16:59 Hgb 14.7 g/dL (11.5-15.3) 09/29/22 16:59 Hct 44.2 % (37.0-47.0) 09/29/22 16:59 MCV 98.0 fl (81-99) 09/29/22 16:59 MCH 32.6 pg (28.0-34.0) 09/29/22 16:59 MCHC 33.3 g/dL (30.0-36.0) 09/29/22 16:59 RDW 15.8 % (12.1-15.1) H 09/29/22 16:59 Plt Count 367 10^3/cmm (130-400) 09/29/22 16:59 MPV 8.5 fL (7.4-10.4) 09/29/22 16:59 Neut % (Auto) 57.8 % 09/29/22 16:59 Lymph % (Auto) 34.6 % 09/29/22 16:59 [place] % (Auto) 3.9 % 09/29/22 16:59 Eos % (Auto) 3.0 % 09/29/22 16:59 Baso % (Auto) 0.4 % 09/29/22 16:59 Neut # (Auto) 6.27 10^3/uL (1.8-7.7) 09/29/22 16:59 Lymph # (Auto) 3.8 10^3/uL (0.8-4.8) 09/29/22 16:59 [place] # (Auto) 0.4 10^3/uL (0.2-0.9) 09/29/22 16:59 Eos # (Auto) 0.3 10^3/uL (0.0-0.8) 09/29/22 16:59 Baso # (Auto) 0.0 10^3/uL (0.0-0.1) 09/29/22 16:59 Nucleated RBC % (auto) 0 % 09/29/22 16:59 Nucleated RBCs # 0.0 /100WBC 09/29/22 16:59 Sodium 136 mmol/L (136-145) 09/29/22 16:59 Potassium 4.5 mmol/L (3.5-5.1) 09/29/22 16:59 Chloride 102 mmol/L (98-107) 09/29/22 16:59 Carbon Dioxide 21 mmol/L (22-29) L 09/29/22 16:59 Anion Gap 17.5 (5-19) 09/29/22 16:59 BUN 11 mg/dL (6-20) 09/29/22 16:59 Creatinine 1.0 mg/dL (0.5-0.9) H 09/29/22 16:59 GFR Calculation 59.7 mL/min (90-130) L 09/29/22 16:59 Glucose 82 mg/dL (65-115) 09/29/22 16:59 Calculated Osmolality 280 mOsm/kg (285-295) L 09/29/22 16:59 Calcium 9.0 mg/dL (8.5-10.5) 09/29/22 16:59 Iron 67 ug/dL (37-145) 09/29/22 16:59 TIBC 200 mcg/dl 09/29/22 16:59 % Saturation 33.5 % (20-50) 09/29/22 16:59 Unsat Iron Binding 133 ug/dL (112-347) 09/29/22 16:59 Total Bilirubin 0.2 mg/dL (0.15-1.2) 09/29/22 16:59 AST 11 U/L (0-32) 09/29/22 16:59 ALT 15 U/L (0-33) 09/29/22 16:59 Alkaline Phosphatase 100 U/L (35-105) 09/29/22 16:59 Total Protein 7.7 g/dL (6.6-8.7) 09/29/22 16:59 Albumin 4.4 g/dL (3.5-5.2) 09/29/22 16:59 Globulin 3.3 g/dL (1.3-4.6) 09/29/22 16:59 Vitamin B12 375 pg/mL (232-1245) 09/29/22 16:59 Ethyl Alcohol < 10 mg/dL (0-10) 09/29/22 16:59 Discharge Plan Discharge Patient Disposition: Admitted As Inpatient Admit Provider: Rex Duarte Clinical Impression: Vertigo, Carotid artery, internal, occlusion, Lung mass Condition: Stable Coding Level of Care Code ED Weekend [place]chor for [facility] [place] NIH stroke score NIHSS Level Of Consciousness - 1a: 0 Level Of Consciousness Questions - 1b: Both Correct Level Of Consciousness Commands - 1c: Both Correct Best Gaze - 2: Normal (No nystagmus) Visual Webb - 3: No Visual Loss Facial Palsy - 4: Normal Motor Arm Right - 5: No Drift Motor Arm Left - 5: No Drift Motor Leg Right - 6: No Drift Motor Leg Left - 6: No Drift Limb Ataxia - 7: Absent Sensory - 8: Normal Best Language - 9: No Aphasia Dysarthia - 10: Normal Extinction And Inattention - 11: 0 Score Total Score: 0 Documented by User: Janee Hi MD 09/29/22 20:28 HPI - Dizziness General: Chief Complaint: Dizziness Stated Complaint: dizz Time Seen by Provider: 09/29/22 16:28 PFSH ED PFSH: Medical History (Updated 09/29/22 @ 23:42 by Rex Duarte MD) Asthma Generalized anxiety disorder 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 Hx of nephrolithotomy with removal of calculi Hypertensive crisis Major depressive disorder, recurrent, moderate Missed periods Nicotine dependence, cigarettes, uncomplicated Oral abscess Post-traumatic stress disorder, chronic Psychiatric care Surgical History History of removal of ovarian cyst Hx of cholecystectomy Hx of hernia repair Hx of lithotripsy Family History (Updated 09/29/22 @ 23:42 by Rex Duarte MD) Other CAD (coronary artery disease) Cancer Hypertension Psychiatric illness Stroke Denies family history of Diabetes Chronic kidney disease (CKD) Social History (Updated 09/29/22 @ 23:43 by Rex Duarte MD) Smoking and tobacco status: current every day smoker cigarettes Packs smoked per day: 1 Years cigarettes smoked: 25 Alcohol intake: never Caregiver/support person: Yes Lives independently: Yes Household members: significant other Housing: House Current occupational status: employed Course Vital Signs: Vital signs: Vital Signs Temperature 98.6 F 09/30/22 04:52 Pulse Rate 87 09/30/22 04:52 Respiratory Rate 18 09/30/22 04:52 Blood Pressure 128/85 09/30/22 04:52 Pulse Oximetry 97 09/30/22 04:52 Oxygen Delivery Me thod Room Air 09/29/22 17:15 MDM - Dizziness Medical Decision Making Patient presents with dizziness been going on for weeks she had some visual deficits as well. She is out of the treatment window for tPA. CT angio did show a occlusion of her internal carotid artery she also has a left upper lobe mass in her lung. Spoke to the hospitalist will admit at this time. Medical Records I reviewed the patient's medical records. Lab Data I reviewed the patient's lab results. 09/29/22 16:59 09/29/22 16:[address] 09/29/22 16:31 IMPRESSION: No acute intracranial abnormality. Head/Neck CTA 09/29/22 16:52 IMPRESSION: 1. The left internal carotid is more faintly opacified in the right side likely related to retrograde opacification. 2. 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 There is a 3 mm inferiorly projecting aneurysm at the level of the anterior communicating artery. 3. The non dominant right vertebral artery terminates in the PICA which can be seen as an anatomic variant. IMPRESSION: 1. 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 2. Spiculated left upper lobe mass measuring 2.2 cm suspicious for lung malignancy. There are mildly prominent mediastinal lymph nodes also present which may be metastatic. Recommend clinical correlation. REFERENCES: NASCET CRITERIA. The degree of stenosis in the cervical segment of the internal carotid artery is based on NASCET criteria. Normal is no stenosis. Mild is less than 50% stenosis. Moderate is 50-69% stenosis. Severe is 70% to 99% stenosis. Total occlusion is no detectable patent lumen. ADDENDUM: 09/29/22 8042 Addendum: The age of the left internal carotid artery occlusion is indeterminate. Correlate with history. There is severe atherosclerotic disease at this level. Posterior to the left upper lobe mass there is also a smaller nodule measuring 6 mm abutting the fissure on series 4, image 11. Recommend attention on follow-up. THIS REPORT CONTAINS FINDINGS THAT MAY BE CRITICAL TO PATIENT CARE. The findings were verbally communicated via telephone conference with Dr Hi at 6:48 PM CDT on 09/29/2022. The findings were acknowledged and understood. Chest X-Ray 09/29/22 18:50 IMPRESSION: Left upper lobe mass measuring 2.2 cm again visualized. This is again suspicious for malignancy and can be further evaluated with dedicated chest CT. Chest CT 09/29/22 22:43 IMPRESSION: Spiculated left upper lobe mass with adjacent smaller satellite nodule measuring 6 mm is unchanged with the comparison CTA. This is again suspicious for malignancy. On chest imaging there are faint ground-glass nodules in the lung apices which may be infectious/inflammatory. Stable mildly prominent mediastinal lymph nodes which are indeterminate. Correlate with clinical symptoms and recommend follow-up. Highly suspicious nodule(s). Consider non-emergent PET/CT, or tissue sampling.(Reference: Kwabena) COMMENTS: Consistent with the [place] [employer]'s Incidental Findings Committee white paper ([employer] Am [place] [employer]iol 2017): For any incidental adrenal lesion greater than or equal to 1 cm but less than or equal to 4 cm classified in this report as benign, likely benign, or containing fat (including classification as an adenoma or myelolipoma), no follow-up imaging is recommended per consensus recommendations based on imaging criteria. Further lab evaluation could be pursued if warranted based on clinical findings. REFERENCES: Kwabena Mg, et al. Guidelines for Management of Incidental Pulmonary Nodules Detected on CT Images: From the Fleischner Society 2017. Radiology. 2017;284(1):228-243. Laboratory Results WBC 10.8 10^3/uL (4.0-10.0) H 09/29/22 16:59 RBC 4.51 10^6/uL (4.1-5.3) 09/29/22 16:59 Hgb 14.7 g/dL (11.5-15.3) 09/29/22 16:59 Hct 44.2 % (37.0-47.0) 09/29/22 16:59 MCV 98.0 fl (81-99) 09/29/22 16:59 MCH 32.6 pg (28.0-34.0) 09/29/22 16:59 MCHC 33.3 g/dL (30.0-36.0) 09/29/22 16:59 RDW 15.8 % (12.1-15.1) H 09/29/22 16:59 Plt Count 367 10^3/cmm (130-400) 09/29/22 16:59 MPV 8.5 fL (7.4-10.4) 09/29/22 16:59 Neut % (Auto) 57.8 % 09/29/22 16:59 Lymph % (Auto) 34.6 % 09/29/22 16:59 [place] % (Auto) 3.9 % 09/29/22 16:59 Eos % (Auto) 3.0 % 09/29/22 16:59 Baso % (Auto) 0.4 % 09/29/22 16:59 Neut # (Auto) 6.27 10^3/uL (1.8-7.7) 09/29/22 16:59 Lymph # (Auto) 3.8 10^3/uL (0.8-4.8) 09/29/22 16:59 [place] # (Auto) 0.4 10^3/uL (0.2-0.9) 09/29/22 16:59 Eos # (Auto) 0.3 10^3/uL (0.0-0.8) 09/29/22 16:59 Baso # (Auto) 0.0 10^3/uL (0.0-0.1) 09/29/22 16:59 Nucleated RBC % (auto) 0 % 09/29/22 16:59 Nucleated RBCs # 0.0 /100WBC 09/29/22 16:59 Sodium 136 mmol/L (136-145) 09/29/22 16:59 Potassium 4.5 mmol/L (3.5-5.1) 09/29/22 16:59 Chloride 102 mmol/L (98-107) 09/29/22 16:59 Carbon Dioxide 21 mmol/L (22-29) L 09/29/22 16:59 Anion Gap 17.5 (5-19) 09/29/22 16:59 BUN 11 mg/dL (6-20) 09/29/22 16:59 Creatinine 1.0 mg/dL (0.5-0.9) H 09/29/22 16:59 GFR Calculation 59.7 mL/min (90-130) L 09/29/22 16:59 Glucose 82 mg/dL (65-115) 09/29/22 16:59 Calculated Osmolality 280 mOsm/kg (285-295) L 09/29/22 16:59 Calcium 9.0 mg/dL (8.5-10.5) 09/29/22 16:59 Iron 67 ug/dL (37-145) 09/29/22 16:59 TIBC 200 mcg/dl 09/29/22 16:59 % Saturation 33.5 % (20-50) 09/29/22 16:59 Unsat Iron Binding 133 ug/dL (112-347) 09/29/22 16:59 Total Bilirubin 0.2 mg/dL (0.15-1.2) 09/29/22 16:59 AST 11 U/L (0-32) 09/29/22 16:59 ALT 15 U/L (0-33) 09/29/22 16:59 Alkaline Phosphatase 100 U/L (35-105) 09/29/22 16:59 Total Protein 7.7 g/dL (6.6-8.7) 09/29/22 16:59 Albumin 4.4 g/dL (3.5-5.2) 09/29/22 16:59 Globulin 3.3 g/dL (1.3-4.6) 09/29/22 16:59 Vitamin B12 375 pg/mL (232-1245) 09/29/22 16:59 Ethyl Alcohol < 10 mg/dL (0-10) 09/29/22 16:59 Discharge Plan Discharge Patient Disposition: Admitted As Inpatient Admit Provider: Rex Duarte Clinical Impression: Vertigo, Carotid artery, internal, occlusion, Lung mass Condition: Stable Coding Level of Care Code ED Weekend Anchor for Scotty Lewis
--- NOTE | 2022-09-29 16:52 | CTR_ITS ---
PROCEDURE INFORMATION: Exam: CTA Head With Contrast, Arteriography Exam date and time: 09/29/2022 5:38 PM Age: 46 years old Clinical indication: Dizziness and giddiness and visual disturbance; Type not specified; Additional info: Visual disturbance weakness R hand TECHNIQUE: Imaging protocol: Computed tomographic angiography of the head with contrast. Exam focused on the arteries. 3D rendering (Not supervised by radiologist): MIP and/or 3D reconstructed images were created by the technologist. Radiation optimization: All CT scans at this facility use at least one of these dose optimization techniques: automated exposure control; mA and/or kV adjustment per patient size (includes targeted exams where dose is matched to clinical indication); or iterative reconstruction. Contrast material: OMNI 350; Contrast volume: 100 ml; Contrast route: INTRAVENOUS (IV); REPORTING DATA: Count of CT and Cardiac NM exams in prior 12 months: This patient has received 0 known CTs and 0 known cardiac nuclear medicine studies in the 12 months prior to the current study. COMPARISON: CT head wo con* [id number] 09/29/2022 4:39 PM RADIATION DOSE METRICS: Total DLP (mGy-cm): 478.02 FINDINGS: ANTERIOR CIRCULATION: Right internal carotid artery: Intracranial segment is patent with no significant stenosis. No aneurysm. Right middle cerebral artery: No occlusion or significant stenosis. No aneurysm. Right anterior cerebral artery: No occlusion or significant stenosis. No aneurysm. Left internal carotid artery: The left internal carotid artery has morphine to Lisandra ossification compared to the right side without occlusion. Left middle cerebral artery: No occlusion or significant stenosis. No aneurysm. Left anterior cerebral artery: No occlusion or significant stenosis. No aneurysm. POSTERIOR CIRCULATION: Right vertebral artery: The non dominant right vertebral artery terminates in the PICA. Beyond this point is not visualized. This is most likely congenital or chronic. Left vertebral artery: No occlusion or significant stenosis. No aneurysm. Basilar artery: No occlusion or significant stenosis. No aneurysm. Right posterior cerebral artery: The right [employer] has anatomic variant origin. Left posterior cerebral artery: No occlusion or significant stenosis. No aneurysm. Left posterior communicating artery: There is a 2 mm inferiorly projecting aneurysm present at the left posterior communicating artery origin. Brain: No definite mass, mass effect, or midline shift. Cerebral ventricles: No ventriculomegaly. Bones/joints: Unremarkable. No acute fracture. Soft tissues: Unremarkable. Other findings: There is a 3 mm inferiorly projecting aneurysm at the level of the anterior communicating artery. PROCEDURE INFORMATION: Exam: CTA Neck With Contrast Exam date and time: 09/29/2022 5:38 PM Age: 46 years old Clinical indication: Dizziness and giddiness and visual disturbance; Type not specified; Additional info: Visual disturbance weakness R hand TECHNIQUE: Imaging protocol: Computed tomographic angiography of the neck with contrast. 3D rendering (Not supervised by radiologist): MIP and/or 3D reconstructed images were created by the technologist. Radiation optimization: All CT scans at this facility use at least one of these dose optimization techniques: automated exposure control; mA and/or kV adjustment per patient size (includes targeted exams where dose is matched to clinical indication); or iterative reconstruction. Contrast material: OMNI 350; Contrast volume: 100 ml; Contrast route: INTRAVENOUS (IV); REPORTING DATA: Count of CT and Cardiac NM exams in prior 12 months: This patient has received 0 known CTs and 0 known cardiac nuclear medicine studies in the 12 months prior to the current study. COMPARISON: CT head wo con* [id number] 09/29/2022 4:39 PM RADIATION DOSE METRICS: Total DLP (mGy-cm): 478.02 FINDINGS: Right common carotid artery: Atherosclerosis proximal right common carotid with 30% stenosis. Right internal carotid artery: Right proximal internal carotid artery has calcified and noncalcified plaque causing 30% stenosis. Right external carotid artery: High-grade stenosis origin right external carotid. Left common carotid artery: Atherosclerotic changes proximal left common carotid artery with 30% stenosis proximally. Left internal carotid artery: The proximal left internal carotid artery is occluded with prompt reconstitution. Its opacification is more faint than the comparison right side suggesting retrograde flow. Left external carotid artery: No occlusion or stenosis of the origin. Right vertebral artery: No stenosis. No dissection or occlusion. Left vertebral artery: No stenosis. No dissection or occlusion. Left subclavian artery: Atherosclerotic changes left subclavian artery with 30% stenosis proximally. Lymph nodes: There are mildly prominent mediastinal nodes present measuring up to 1 cm short axis in the aortopulmonary window. Soft tissues: Normal. No significant soft tissue swelling. Bones/joints: No acute fracture. Lungs: There is a 2.2 cm left upper lobe mass with spiculated margins seen on series 4, image 7. CT/CT angio headneck* [id number] IMPRESSION: 1. The left internal carotid is more faintly opacified in the right side likely related to retrograde opacification. 2. 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 There is a 3 mm inferiorly projecting aneurysm at the level of the anterior communicating artery. 3. The non dominant right vertebral artery terminates in the PICA which can be seen as an anatomic variant. IMPRESSION: 1. 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 2. Spiculated left upper lobe mass measuring 2.2 cm suspicious for lung malignancy. There are mildly prominent mediastinal lymph nodes also present which may be metastatic. Recommend clinical correlation. REFERENCES: NASCET CRITERIA. The degree of stenosis in the cervical segment of the internal carotid artery is based on NASCET criteria. Normal is no stenosis. Mild is less than 50% stenosis. Moderate is 50-69% stenosis. Severe is 70% to 99% stenosis. Total occlusion is no detectable patent lumen.
--- NOTE | 2022-09-29 17:03 | ECG_ITS ---
[facility] Test Date: 2022-09-29 Pat Name: Leann Monte Department: Room: Gender: Female [place]: : 1975 Requested By: Mesfin Basurto Order Number: [id number] Nelly MD: David Tubbs M.D. Measurements Intervals [place] Rate: 80 P: 61 [place]: 132 QRS: 37 QRSD: 87 T: 101 QT: 365 QTc: 423 Interpretive Statements SINUS RHYTHM ST DEVIATION AND MODERATE T-WAVE ABNORMALITY, CONSIDER ANTEROLATERAL ISCHEMIA [-0.1+ mV T-WAVE IN V3-V6] Compared to ECG 07/06/2021 09:27:53 No significant changes Electronically Signed On 09-29-2022 17:30:34 CDT by David Tubbs M.D. [id number]
[2022-09-29 17:10] LABS: Basophils % 0.4 %; Eosinophils # 0.3 10^3/uL (0.0-0.8); Hematocrit 44.2 % (37.0-47.0); Hemoglobin 14.7 g/dL (11.5-15.3); Lymphocytes # 3.8 10^3/uL (0.8-4.8); Lymphocytes % 34.6 %; Mean Corpuscular HGB Conc 33.3 g/dL (30.0-36.0); Mean Corpuscular Hemoglobin 32.6 pg (28.0-34.0); Mean Platelet Volume 8.5 fL (7.4-10.4); Monocytes # 0.4 10^3/uL (0.2-0.9); Monocytes % 3.9 %; Neutrophils # 6.27 10^3/uL (1.8-7.7); Neutrophils % 57.8 %; Nucleated Red Blood Cells % 0 %; Platelet Count 367 10^3/cmm (130-400); Red Blood Count 4.51 10^6/uL (4.1-5.3); Red Cell Distribution Width 15.8 % (12.1-15.1); White Blood Count 10.8 10^3/uL (4.0-10.0)
[2022-09-29 17:15] VITALS: BP 117/93; PULSE 96; RESP 16; O2SAT 98
[2022-09-29 17:17] VITALS: BP 112/87; BP 117/93; BP 134/99; PULSE 83; PULSE 94; PULSE 96
[2022-09-29 17:34] LABS: Slide Review Slide Review Perform
[2022-09-29 17:36] LABS: Alanine Aminotransferase 15 U/L (0-33); Albumin Level 4.4 g/dL (3.5-5.2); Alkaline Phosphatase 100 U/L (35-105); Anion Gap 17.5 (5-19); Aspartate Amino Transferase 11 U/L (0-32); Blood Urea Nitrogen 11 mg/dL (6-20); Carbon Dioxide 21 mmol/L (22-29); Chloride 102 mmol/L (98-107); Globulin 3.3 g/dL (1.3-4.6); Glomerular Filtration Rate 59.7 mL/min (90-130); Glucose 82 mg/dL (65-115); Osmolality Calculated 280 mOsm/kg (285-295); Potassium 4.5 mmol/L (3.5-5.1); Sodium 136 mmol/L (136-145); Total Bilirubin 0.2 mg/dL (0.15-1.2); Total Protein 7.7 g/dL (6.6-8.7)
[2022-09-29] MEDS: iohexol 350 mg/mL 500 mL Btl (per mL) IV (17:41)
--- NOTE | 2022-09-29 18:50 | XRR_ITS ---
PROCEDURE INFORMATION: Exam: XR Chest Exam date and time: 09/29/2022 6:56 PM Age: 46 years old Clinical indication: Abnormal findings; Lung mass or nodule; Not specified; Additional info: Mass, seen on CT TECHNIQUE: Imaging protocol: Radiologic exam of the chest. Views: 1 view. COMPARISON: 1. CR XR chest 1V portable [id number] 07/06/2021 7:[address] angio headneck* [id number] 09/29/2022 5:38 PM FINDINGS: Lungs: Left upper lobe mass measuring 2.2 cm is again visualized. The lungs are otherwise clear. Pleural spaces: Unremarkable. No pleural effusion. No pneumothorax. Heart/Mediastinum: Unremarkable. No cardiomegaly. Bones/joints: Unremarkable. XR/XR chest 1V portable [id number] IMPRESSION: Left upper lobe mass measuring 2.2 cm again visualized. This is again suspicious for malignancy and can be further evaluated with dedicated chest CT.
[2022-09-29] MEDS: aspirin 325 mg Tablet PO (19:38)
[2022-09-29 20:45] VITALS: BP 138/86; PULSE 82; RESP 18; O2SAT 96
[2022-09-29 21:02] LABS: Add Urine Microscopic? NO; Charge for UA Resulting for Rev
[2022-09-29 21:23] LABS: Bilirubin Urine Neg (Negative); Blood Urine Neg (Negative); Glucose Urine UA Norm (Normal); Ketones Urine Negative (Negative); Leukocyte Esterase Urine Negative (Negative); Nitrate Urine Negative (Negative); Protein Urine Neg (Negative); Urine Appearance Clear (CLEAR); Urine Color Yellow (Yellow); Urobilinogen Urine Norm (Negative); pH Urine 6 (5-7)
--- NOTE | 2022-09-29 22:09 | USCV_ITS ---
Leann Monte Age: 46 Gender: F : 1975 Exam Date: 09/29/2022 22:27 Ordering Phys: Rex Duarte MD Technologist: DOT Exam Location: [facility] [place] Indication: dizziness, visual disturbances. No history of cardiac intervention per patient. BP: 138 / 86 HR: 87 Rhythm: Sinus Technical Quality: Adequate MEASUREMENTS (Male / Female) Normal Values 2D ECHO LV Diastolic Diameter PLAX 3.7 cm 4.2 - 5.9 / 3.9 - 5.3 cm LV Systolic Diameter PLAX 2.7 cm IVS Diastolic Thickness 1.1 cm 0.6 - 1.0 / 0.6 - 0.9 cm IVS Systolic Thickness 1.4 cm LVPW Diastolic Thickness 1.2 cm 0.6 - 1.0 / 0.6 - 0.9 cm LVPW Systolic Thickness 1.2 cm LVOT Diameter 1.8 cm LV Ejection Fraction 2D Teich 55.0 % LV Ejection Fraction MOD 2C 67.9 % LV Ejection Fraction 2C AL 68.1 % LA Diameter 3.2 cm LA Width 1.9 cm LA Height 5.6 cm RA Width 2.1 cm RA Height 3.7 cm Aorta at Sinotubular Diameter 2.2 cm IVC Diameter 1.3 cm M-MODE Aortic Annulus Diameter 2.9 cm LA Ao Ratio MM 1.1 MV E Point Septal Separation 0.4 cm DOPPLER AV Peak Velocity 142.0 cm/s LVOT Peak Velocity 106.0 cm/s AV Area Cont Eq vti 1.9 cm squared AV Area Cont Eq pk 1.8 cm squared MV Area PHT 3.9 cm squared Mitral E to A Ratio 0.9 MV E' Velocity 39.0 cm/s Mitral E to MV E' Ratio 11.7 Mitral E to LV E' Lateral Ratio 10.4 Mitral E to LV E' Septal Ratio 13.8 TV Peak E Velocity 53.0 cm/s PV Peak Velocity 108.0 cm/s RV Acceleration Time 0.1 s RV Ejection Time 0.4 s RV AcT/ET 0.2 FINDINGS Left Ventricle Normal left ventricular size and systolic function, EF 67 %. No regional wall motion abnormalities. . Mild left ventricular hypertrophy. Grade I/IV diastolic dysfunction (abnormal relaxation filling pattern), normal to mildly elevated filling pressures. Right Ventricle The right ventricle is normal in size and function. Right Atrium The right atrium is normal in size. Left Atrium The left atrium is normal in size. Mitral Valve No gross abnormalities noted. Aortic Valve No gross abnormalities noted Tricuspid Valve no gross abnormalities noted Pulmonic Valve no gross abnormalities noted Pericardium Normal pericardium without effusion. Aorta Normal ascending aorta dimension. IVC Normal inferior vena cava. CONCLUSIONS Normal left ventricular size and systolic function, EF 67 %. No regional wall motion abnormalities. . Mild left ventricular hypertrophy. Grade I/IV diastolic dysfunction (abnormal relaxation filling pattern), normal to mildly elevated filling pressures. Normal cardiac chamber sizes. No Significant stenotic or regurgitant lesion has been No intracardiac masses There is no pericardial effusion. Compared to the study from 01/19/2021, there may not be a significant change Dr Mandy Hanson MD FACC (Electronically Signed) Final Date: 30 September 2022 09:51 S
[2022-09-29 22:14] VITALS: BP 127/70; PULSE 86; RESP 18; TEMP 36.2; O2SAT 95
--- NOTE | 2022-09-29 22:15 | P.HP_ITS ---
Providers/Chief Complaint Admitting Physician: Rex Duarte MD Primary Care Provider: Jean Iniguez DO Chief Complaint: dizzy History of Present Illness Leann Monte is a 46 year old female with past medical history of anxiety, major depressive disorder, uncontrolled hypertension on multiple medications, PTSD presented to the ER today after having blurry vision bilaterally getting worse on standing up along with headache for last 2 to 3 days. Today patient started having weakness and numbness on her right upper limb so she presented to the ER. As per patient she has been taking her antihypertensives as scheduled. She checks her blood pressures at home and usually they range from 118 systolic to 160 systolics. She denies of having any episodes of loss of consciousness but does complain of dizziness on standing up. Patient gives history of smoking 1 pack/day for many years. Denies any history of COPD. Denies any similar complaints in the past. Gives significant history of CAD and stroke in family. 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 Review of Systems General: Reports: 10 or more systems reviewed and unremarkable except in HPI and below Const: Denies: fever(s), chills, body aches, change in appetite, change in weight, malaise, night sweats, diaphoresis, change in sleep pattern, daytime sleepiness or snoring Eyes: Denies: change in vision, blurry vision, photophobia, eye discomfort or eye discharge ENMT: Denies: throat pain, enlarged tonsils, hoarseness, mouth pain, oral sores, dry mouth, tinnitus, nasal congestion or post nasal drip Card: Denies: chest pain, palpitations, irregular heart rhythm, edema, s welling of feet/ankles, lightheadedness, syncope, pre-syncope, dyspnea on exertion, orthopnea, leg pain with exertion or acrocyanosis Resp: Denies: dyspnea, productive cough, non-productive cough, wheezing, stridor, pain on inspiration, change in phlegm color, hemoptysis or chest congestion GI: Denies: abdominal pain, nausea, vomiting, hematemesis, coffee ground emesis, dysphagia, heartburn, diarrhea, constipation, bloating, GI cramping, change in bowel habits, pain on defecation, hematochezia or melena : Denies: flank pain, dysuria, urinary frequency, urinary urgency, urinary hesitancy, nocturia or hematuria Musc: Denies: neck pain, back pain, extremity pain, joint pain, joint swelling, joint redness, joint stiffness or limited range of motion Neuro: Denies: headache(s), numbness in extremities, weakness in extremities, sensory changes, lack of coordination, difficulty walking, frequent falls, dizziness, vertigo, confusion, Slurred speech present, difficulty communicating thoughts or seizure-like activity Psych: Denies: anxiety, depression, mood swings, panic attacks, hopelessness or irritability Endo: Denies: polyuria, polydipsia, tired all the time, cold intolerance, excessive sweating, flushing or heat intolerance Simon/Lymph: Denies: easy bruising or easy bleeding All/Imm: Denies: tongue swelling, facial swelling or acute wheezing Medications/Allergies Home Medications Medication Instructions Recorded Confirmed Last Taken Type albuterol sulfate 90 mcg/actuation 2 inh inhalation Q6H PRN shortness 08/18/21 09/24/22 04/08/22 Rx breath activated powder inhaler of breath or wheezing #1 ea nicotine (polacrilex) 4 mg gum 4 mg buccal Q2H #100 ea 08/18/21 09/24/22 Unknown Rx nicotine See Rx Instructions transdermal 08/18/21 09/24/22 Unknown Rx 21mg/24hr-14mg/24hr-7mg/24hr daily .COMPLEX #56 patches transderm patches,sequentl ondansetron 4 mg disintegrating See Rx Instructions .Route 01/06/22 09/24/22 1 Week Ago Rx tablet .COMPLEX #14 tabs ~04/01/22 hydroxyzine HCl 50 mg tablet 50 - 100 mg PO BEDTIME@2200 PRN 01/15/22 09/24/22 04/13/22 Rx Anxiety #90 tabs aripiprazole 10 mg tablet 15 mg PO DAILY 30 days #45 tabs 05/27/22 09/24/22 Unknown Rx citalopram 40 mg tablet 40 mg PO DAILY #90 tabs 05/27/22 09/24/22 Unknown Rx buspirone 10 mg tablet See Rx Instructions .Route 08/17/22 09/24/22 Unknown Rx .COMPLEX #60 tabs ondansetron 8 mg disintegrating 8 mg PO Q8H PRN nausea and 08/20/22 09/24/22 Unknown Rx tablet vomiting 5 days #15 tabs hydralazine 10 mg tablet 10 mg PO TID #270 tabs 08/25/22 09/24/22 Unknown Rx lisinopril 20 mg tablet 20 mg PO DAILY #90 tabs 08/25/22 09/24/22 Unknown Rx nifedipine 10 mg capsule 10 mg PO TID 30 days #270 caps 08/25/22 09/24/22 Unknow n Rx spironolactone 25 mg tablet 50 mg PO BID 30 days #180 tabs 08/25/22 09/24/22 Unknown Rx duloxetine 30 mg capsule,delayed 30 mg PO DAILY 30 days #30 caps 09/16/22 09/24/22 Unknown Rx release duloxetine 60 mg capsule,delayed 60 mg PO DAILY #30 caps 09/16/22 09/24/22 Unknown Rx release trazodone 100 mg tablet 100 mg PO BEDTIME PRN Sleep #30 09/16/22 09/24/22 Unknown Rx tabs cyclobenzaprine 10 mg tablet 10 mg PO .HS PRN muscle spasm #30 09/24/22 09/24/22 Unknown Rx tabs clonidine HCl 0.1 mg tablet See Rx Instructions .Route 09/28/22 Unknown Rx .COMPLEX #90 tabs Allergies Allergy/AdvReac Type Severity Reaction Status Date / Time Penicillins Allergy Severe Anaphylaxis Verified 09/29/22 14:19 morphine Allergy Intermediate ADR-Vomitin Verified 09/29/22 14:19 g naproxen Allergy Intermediate ADR-Vomitin Verified 09/29/22 14:19 g lorazepam [From Ativan] AdvReac Severe Becomes Verified 09/29/22 14:19 aggressive. 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 Hx of nephrolithotomy with removal of calculi Hypertensive crisis Major depressive disorder, recurrent, moderate Missed periods Nicotine dependence, cigarettes, uncomplicated Oral abscess Post-traumatic stress disorder, chronic Psychiatric care Surgical History History of removal of ovarian cyst Hx of cholecystectomy Hx of hernia repair Hx of lithotripsy Family History (Updated 09/29/22 @ 23:42 by Rex Duarte MD) Other CAD (coronary artery disease) Cancer Hypertension Psychiatric illness Stroke Denies family history of Diabetes Chronic kidney disease (CKD) Social History (Updated 09/29/22 @ 23:43 by Rex Duarte MD) Smoking and tobacco status: current every day smoker cigarettes Packs smoked per day: 1 Years cigarettes smoked: 25 Alcohol intake: never Caregiver/support person: Yes Lives independently: Yes Household members: significant other Housing: House Current occupational status: employed Female Reproductive History: Para: 0 Spontaneous abortions: Yes (all 6 pregnancies) Vitals/I&O/Wt Last Vital Signs Temp 97.2 F L 09/29/22 22:14 Pulse 86 09/29/22 22:14 Resp 18 09/29/22 22:14 BP 127/70 09/29/22 22:14 Pulse Ox 95 09/29/22 22:14 O2 Del Method Room Air 09/29/22 17:15 Weight last 48 hrs Weight 90.718 kg Physical Exam Narrative: General: No acute distress, AO x3, anxious, smelling of tobacco HEENT: PERRLA, pupils bilaterally equal and reactive, bilateral conjunctive injected Chest: Normal vesicular breath sounds, no added sounds, equal good air entry bilaterally CVS: S1-S2 regular, no murmurs, no tachycardia, no gallops, no rubs Abdomen: Soft, nontender, no organomegaly, bowel sounds present Neuro: No focal deficits, no facial deformity, AO x3, power 5/5 in all limbs Data 09/29/22 16:59 09/29/22 16:59 A&P Assessment and plan (1) Vertigo: Unknown etiology for now. Along with bilateral blurry vision. Given concerns for carotid artery occlusion and intracerebral aneurysm cannot r ule out posterior circulation stroke. Patient does have a history of uncontrolled hypertension on multiple antihypertensives. Cannot rule out orthostatic hypotension. On review patient does have multiple blood work showing hypoglycemia so cannot rule out episodes of hypoglycemia. Patient does have a new left lung mass so cannot rule out paraneoplastic syndrome. PT/OT/speech evaluation. MRI along with MRI brain. Aspirin 81 mg daily, atorvastatin 40 mg daily. Check A1c, lipid panel, vitamin B12, folate levels. Check echocardiogram. For now we will have permissible hypertension. We will hold off on antihypertensives. Check orthostatics. Check urine drug screen (2) Blurry vision, bilateral: (3) Carotid artery, internal, occlusion: (4) Lung mass: New to patient. No personal history of lung cancer. Does have family history of renal carcinoma. Chronic smoker. CT chest without contrast for further evaluation. (5) Essential hypertension: Permissible hypertension for now. History of uncontrolled hypertension. On multiple antihypertensives including clonidine 0.1 mg, hydralazine 10 mg 3 times daily, lisinopril 20 mg daily, nifedipine 10 mg 3 times daily, spironolactone 50 mg twice daily. For now we will hold off. Concerns for orthostatic hypotension. Will add medications as goal blood pressures improved. (6) Major depressive disorder, recurrent, moderate: continue with home dose of aripiprazole, citalopram, buspirone, duloxetine (7) Nicotine dependence, cigarettes, with other nicotine-induced disorders: Plan Full code. Cardiac diet. Heparin 5000 every 12 hourly for DVT prophylaxis Famotidine for PUD prophylaxis. Attestations Medical Necessity Statement*: Admission for more than 2 midnights for further evaluation and management of persistent vertigo with blurry vision while posterior circulation stroke is ruled out, new lung mass under evaluation with high concerns for malignancy Diagnoses Vertigo R42 Blurry vision, bilateral H53.8 Carotid artery, internal, occlusion I65.29 Lung mass R91.8 Essential hypertension I10 Major depressive disorder, recurrent, moderate F33.1 Nicotine dependence, cigarettes, with other nicotine-induced disorders F17.218
[2022-09-29 22:37] LABS: Amphetamines Screen Urine Negative (Negative); Barbiturates Screen Urine Negative (Negative); Benzodiazepines Screen Urine Positive (Negative); Cocaine Screen Urine Negative (Negative); Opiate Screen Urine Negative (Negative); PCP Screen Urine Negative (Negative); THC Screen Urine Negative (Negative)
--- NOTE | 2022-09-29 22:43 | CTR_ITS ---
PROCEDURE INFORMATION: Exam: CT Chest Without Contrast; Diagnostic Exam date and time: 09/29/2022 11:37 PM Age: 46 years old Clinical indication: Mass, lump, or swelling in the chest; Additional info: Left upper lobe mass, concern for malignancy TECHNIQUE: Imaging protocol: Diagnostic computed tomography of the chest without contrast. Radiation optimization: All CT scans at this facility use at least one of these dose optimization techniques: automated exposure control; mA and/or kV adjustment per patient size (includes targeted exams where dose is matched to clinical indication); or iterative reconstruction. REPORTING DATA: Count of CT and Cardiac NM exams in prior 12 months: This patient has received 0 known CTs and 0 known cardiac nuclear medicine studies in the 12 months prior to the current study. COMPARISON: CR (CHEST, ) 09/29/2022 6:56 PM RADIATION DOSE METRICS: Total DLP (mGy-cm): 501.43 FINDINGS: Lungs: There is a spiculated masslike density in the left upper lobe again present in the posterior left upper lobe measuring 1.7 x 2.2 cm similar to the comparison CTA. Additional posterior left upper lobe nodule abutting the major fissure measuring 6 mm is also unchanged. In the upper lobes there are faint ground-glass densities present bilaterally for example on series 4, image 12 Pleural spaces: Unremarkable. No pneumothorax. No pleural effusion. Heart: Unremarkable. No cardiomegaly. No pericardial effusion. Coronary arteries: No significant coronary artery calcification. Lymph nodes: There are mildly prominent mediastinal lymph nodes again seen measuring up to 1 cm short axis diameter in the aortopulmonary window. Vasculature: Normal for age. No aortic aneurysm. Liver: Mass in the right hepatic lobe near the dome measures 1.3 cm possibly with rim calcification or retained contrast likely cyst or hemangioma. Gallbladder and bile ducts: Cholecystectomy. Adrenal glands: There is a right adrenal gland mass measuring an average of an average of 10 Hounsfield units most likely an adenoma. Bones/joints: Probable bone island in the posterior T3 vertebrae. Soft tissues: Unremarkable. CT/CT chest wo con [id number] IMPRESSION: Spiculated left upper lobe mass with adjacent smaller satellite nodule measuring 6 mm is unchanged with the comparison CTA. This is again suspicious for malignancy. On chest imaging there are faint ground-glass nodules in the lung apices which may be infectious/inflammatory. Stable mildly prominent mediastinal lymph nodes which are indeterminate. Correlate with clinical symptoms and recommend follow-up. Highly suspicious nodule(s). Consider non-emergent PET/CT, or tissue sampling.(Reference: Kwabena) COMMENTS: Consistent with the [employer]'s Incidental Findings Committee white paper (J Am [employer]iol 2017): For any incidental adrenal lesion greater than or equal to 1 cm but less than or equal to 4 cm classified in this report as benign, likely benign, or containing fat (including classification as an adenoma or myelolipoma), no follow-up imaging is recommended per consensus recommendations based on imaging criteria. Further lab evaluation could be pursued if warranted based on clinical findings. REFERENCES: Kwabena Mg, et al. Guidelines for Management of Incidental Pulmonary Nodules Detected on CT Images: From the [employer]isch[employer] Society 2017. Radiology. 2017;284(1):228-243.
[2022-09-29] MEDS: heparin 5,000 unit/mL INJ 1 mL 5000 UNIT SUBCUT (23:08)
[2022-09-29 23:26] VITALS: BP 127/91; PULSE 97; RESP 18; TEMP 36.3; O2SAT 99
[2022-09-29] MEDS: acetaminophen 325 mg Tablet 650 MG PO (23:48)
[2022-09-29 23:50] LABS: Iron 67 ug/dL (37-145); Percent Saturation 33.5 % (20-50); Total Iron Binding Capacity 200 mcg/dl; Unsaturated Iron Binding 133 ug/dL (112-347); Vitamin B12 375 pg/mL (232-1245)
[2022-09-29 23:52] LABS: Alcohol Level < 10 mg/dL (0-10)
[2022-09-30] VITALS (8 sets, daily range): BP systolic 117–170; BP diastolic 55–120; PULSE 87–107; RESP 14–22; TEMP 36.1–37; O2SAT 94–97
[2022-09-30 08:48] LABS: Estmated Average Glucose 108; Hemoglobin A1C 5.4 % (4.0-6.0)
[2022-09-30 08:51] LABS: Alanine Aminotransferase 15 U/L (0-33); Albumin Level 4.1 g/dL (3.5-5.2); Alkaline Phosphatase 96 U/L (35-105); Aspartate Amino Transferase 14 U/L (0-32); Blood Urea Nitrogen 12 mg/dL (6-20); Calcium 8.6 mg/dL (8.5-10.5); Carbon Dioxide 18 mmol/L (22-29); Chloride 103 mmol/L (98-107); Globulin 2.3 g/dL (1.3-4.6); Glomerular Filtration Rate 67.4 mL/min (90-130); Glucose 95 mg/dL (65-115); Osmolality Calculated 282 mOsm/kg (285-295); Sodium 136 mmol/L (136-145); Total Bilirubin 0.2 mg/dL (0.15-1.2); Total Protein 6.4 g/dL (6.6-8.7)
[2022-09-30 08:52] LABS: Chol HDL Ratio 9.04 mg/dL (0.0-4.40); Cholesterol 226 mg/dL (0-200); HDL Cholesterol 25 mg/dL (60-100); LDL Cholesterol Calculated 132 mg/dL (50-129); LDL HDL Ratio 5.28 RATIO (0.00-3.22); Triglycerides 347 mg/dL (0-150); VLDL Cholestrol Calculation 69 mg/dL (0-30)
[2022-09-30 08:53] LABS: Anion Gap 19.6 (5-19); Potassium 4.6 mmol/L (3.5-5.1)
[2022-09-30 09:07] LABS: Folate Level 3.2 ng/mL (4.8-37.3)
--- NOTE | 2022-09-30 09:34 | PC.NURSE ---
Leann from lab called requesting nursing cancel the CBC ordered d/t last collected specimen clotting. I inquired if physician had been notified and she stated that she had not notified physician. I requested she notify physician and allow physician to change orders. She states she will notify physician. No further issues noted.
[2022-09-30] MEDS: ARIPiprazole 10 mg Tablet 15 MG PO (11:51)
[2022-09-30] MEDS: duloxetine 60 mg Capsule PO (11:52)
[2022-09-30] MEDS: aspirin 81 mg EC Tablet PO (11:52)
[2022-09-30] MEDS: heparin 5,000 unit/mL INJ 1 mL 5000 UNIT SUBCUT ×2 (11:52→21:35)
[2022-09-30] MEDS: citalopram 20 mg Tablet 40 MG PO (11:52)
[2022-09-30] MEDS: nicotine 14 mg Patch 1 PATCH TRANSDERMA (11:52)
[2022-09-30] MEDS: famotidine 20 mg Tablet PO ×2 (11:52→17:06)
[2022-09-30 12:24] LABS: Basophils % 0.4 %; Eosinophils # 0.3 10^3/uL (0.0-0.8); Eosinophils % 3.4 %; Hematocrit 42.5 % (37.0-47.0); Hemoglobin 14.3 g/dL (11.5-15.3); Lymphocytes # 2.8 10^3/uL (0.8-4.8); Lymphocytes % 34.3 %; Mean Corpuscular HGB Conc 33.6 g/dL (30.0-36.0); Mean Corpuscular Hemoglobin 33.3 pg (28.0-34.0); Mean Corpuscular Volume 98.8 fl (81-99); Mean Platelet Volume 8.5 fL (7.4-10.4); Monocytes # 0.4 10^3/uL (0.2-0.9); Monocytes % 5.2 %; Neutrophils # 4.67 10^3/uL (1.8-7.7); Neutrophils % 56.5 %; Nucleated Red Blood Cells % 0 %; Platelet Count 337 10^3/cmm (130-400); Red Cell Distribution Width 15.9 % (12.1-15.1); White Blood Count 8.3 10^3/uL (4.0-10.0)
[2022-09-30 12:47] LABS: Slide Review Slide Review Perform
--- NOTE | 2022-09-30 15:20 | P.PN_ITS ---
Subjective Subjective: Orthostatic vital signs show a drop from 150 systolic to 117 systolic upon standing up.MRI of the brain showed tiny cortical acute lacunar infarcts in the left frontal and parietal lobes. There is prior lacunar type infarct in the left occipital lobe. Moderate small vessel ischemic type changes throughout the white matter. Several tiny foci of enhancement throughout the brain likely to be vascular in etiology. MRA showed very short segment occlusion or near complete occlusion involving the left proximal ICA. Her symptoms are currently improved. Medications: Reviewed: Yes Vitals/I&O/Wt Last Vital Signs Temp 97.0 F L 09/30/22 07:54 Pulse 91 09/30/22 12:21 Resp 19 H 09/30/22 07:54 BP 144/94 09/30/22 12:21 Pulse Ox 96 09/30/22 07:54 O2 Del Method Room Air 09/30/22 07:54 09/30/22 09/30/22 09/30/22 06:59 14:59 22:59 Intake Total 720 / 720 Balance 720 / 720 Weight last 48 hrs Weight 90.718 kg Physical Exam Narrative: General: No acute distress, AO x3 HEENT: PERRLA, pupils bilaterally equal and reactive, pallors not present Chest: Normal vesicular breath sounds, no added sounds, equal good air entry eduardo aterally CVS: S1-S2 regular, no murmurs, no tachycardia, no gallops, no rubs Abdomen: Soft, nontender, no organomegaly, bowel sounds present Neuro: No focal deficits, no facial deformity, AO x3, power 5/5 in all limbs Data 09/30/22 12:07 09/30/22 07:24 A&P Assessment and plan (1) Acute lacunar infarction: MRI shows tiny cortical acute lacunar infarcts in the left frontal and parietal lobes on MRI. Old left occipital lobe removed is seen. MRA of the brain shows short segment occlusion or near complete occlusion involving the left proximal ICA. Given complete occlusion not currently a candidate for surgical intervention. Continue aspirin 81 mg daily, atorvastatin 40 mg daily We will add Plavix once lung biopsy is completed. Currently blood pressure ranging between 1 1 7-1 51, will continue to hold antihypertensives for now in the interest of permissive hypertension. (2) Vertigo: Her vital signs show orthostatic drop in blood pressure from 1 50-1 17 with position changes. Currently her blood pressure medications are on hold. Resting blood pressure at 151/99 currently. We will start adding back medications, starting with once daily lisinopril first and monitor for response. MRI brain shows lacunar infarct in the left occipital lobe which is probably remote. No acute infarct noted in the posterior circulation. PT/OT/speech evaluation. (3) Blurry vision, bilateral: Currently resolved (4) Carotid artery, internal, occlusion: Complete occlusion (5) Lung mass: New to patient. No personal history of lung cancer. Does have family history of renal carcinoma. Chronic smoker. CT chest raises suspicion for spiculated mass concerning for malignancy We will consult pulmonology for expedited lung biopsy. Would prefer to complete this while patient is in-house so that Plavix can be resumed and thereafter there are no interruptions given her acute stroke. (6) Essential hypertension: Permissible hypertension for now. History of uncontrolled hypertension. On multiple antihypertensives including clonidine 0.1 mg, hydralazine 10 mg 3 times daily, lisinopril 20 mg daily, nifedipine 10 mg 3 times daily, spironolactone 50 mg twice daily. For now we will hold off. Concerns for orthostatic hypotension. Will add medications as goal blood pressures improved. (7) Major depressive disorder, recurrent, moderate: continue with home dose of aripiprazole, citalopram, buspirone, duloxetine (8) Nicotine dependence, cigarettes, with other nicotine-induced disorders: Plan Full code. Cardiac diet. Heparin 5000 every 12 hourly for DVT prophylaxis Famotidine for PUD prophylaxis. Attestations Medical Necessity Statement*: Consult pulmonology, plan for lung biopsy, started on aspirin and statins for acute stroke, plan to add Plavix once lung biopsy completed. Coding Level of Care Code Acute Code for Chg Fwd High MDM includes number and complexity of problems actively addressed during encounter, amount and/or complexity of data reviewed/ordered and described risk of complication, morbidity or mortality of management as documented Diagnoses Acute lacunar infarction I63.81 Vertigo R42 Blurry vision, bilateral H53.8 Carotid artery, internal, occlusion I65.29 Lung mass R91.8 Essential hypertension I10 Major depressive disorder, recurrent, moderate F33.1 Nicotine dependence, cigarettes, with other nicotine-induced disorders F17.218
[2022-09-30] MEDS: acetaminophen 325 mg Tablet 650 MG PO (15:25)
--- NOTE | 2022-09-30 16:59 | PM.CONSULT ---
Providers/Reason For Consult Consulting Physician/Specialty*: Boby Houston MD, [facility]/pulmonary critical care Reason for Consult*: Evaluation for obtaining biopsy for Left upper lobe opacity which is suspicious for malignancy Requesting Physician: Abigail Figueroa MD Attending Physician: Abigail Figueroa MD Primary Care Provider: Jean Iniguez DO History of Present Illness History of Present Illness Leann Monte is a 46 year old female With past medical history of anxiety, depression, uncontrolled hypertension on multiple medications, PTSD presented to ER on 09/29/2022 after having blurry vision bilaterally getting worse on standing up with headache for the last 2 to 3 days. Initial stroke work-up in ER showed MRI brain showed tiny cortical acute lacunar infarcts in left frontal and parietal lobes. There is moderate small vessel ischemic type changes throughout white matter. MRA showed very short segment occlusion and near complete occlusion involving the proximal ICA.Patient is not a candidate for surgical intervention Given near complete occlusion. Her symptoms improved. Plan is to discharge her with aspirin and Plavix. Pulmonary consult requested to evaluate for possible biopsies Of Left upper lobe mass incidentally seen on CT .prior to starting Plavix. Patient is a chronic smoker smokes at least 1 pack/day For the last several years. She denied any Exertional shortness of breath and says she takes albuterol very rarely. 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 She denied any persistent cough, hemoptysis, unintentional weight loss, fatigue, Review of Systems General: Reports: 10 or more systems reviewed and unremarkable except in HPI and below Medications/Allergies Home Medications Medication Instructions Recorded Confirmed Last Taken Type albuterol sulfate 90 mcg/actuation 2 inh inhalation Q6H PRN shortness 08/18/21 09/30/22 04/08/22 Rx breath activated powder inhaler of breath or wheezing #1 ea nicotine (polacrilex) 4 mg gum 4 mg buccal Q2H #100 ea 08/18/21 09/30/22 Unknown Rx nicotine See Rx Instructions transdermal 08/18/21 09/30/22 Unknown Rx 21mg/24hr-14mg/24hr-7mg/24hr daily .COMPLEX #56 patches transderm patches,sequentl ondansetron 4 mg disintegrating See Rx Instructions .Route 01/06/22 09/30/22 1 Week Ago Rx tablet .COMPLEX #14 tabs ~04/01/22 hydroxyzine HCl 50 mg tablet 50 - 100 mg PO BEDTIME@2200 PRN 01/15/22 09/30/22 04/13/22 Rx Anxiety #90 tabs citalopram 40 mg tablet 40 mg PO DAILY #90 tabs 05/27/22 09/30/22 09/29/22 Rx buspirone 10 mg tablet See Rx Instructions .Route 08/17/22 09/30/22 09/29/22 Rx .COMPLEX #60 tabs lisinopril 20 mg tablet 20 mg PO DAILY #90 tabs 08/25/22 09/30/22 Unknown Rx trazodone 100 mg tablet 100 mg PO BEDTIME PRN Sleep #30 09/16/22 09/30/22 09/29/22 Rx tabs aripiprazole 15 mg tablet 15 mg PO DAILY 09/30/22 09/30/22 09/29/22 History cyclobenzaprine 10 mg tablet 10 mg PO BEDTIME PRN muscle spasm 09/30/22 09/30/22 09/29/22 History duloxetine 60 mg capsule,delayed 60 mg PO DAILY 09/30/22 09/30/22 Unknown History release spironolactone 25 mg tablet 25 mg PO BID 09/30/22 09/30/22 09/29/22 History aspirin 81 mg tablet,delayed 81 mg PO DAILY 30 days #30 tabs 10/01/22 Unknown Rx release atorvastatin 40 mg tablet 40 mg PO BEDTIME 30 days #30 tabs 10/01/22 Unknown Rx clopidogrel 75 mg tablet (Plavix) 75 mg PO DAILY 30 days #30 tabs 10/01/22 Unknown Rx famotidine 20 mg tablet 20 mg PO BID 30 days #60 tabs 10/01/22 Unknown Rx hydralazine 10 mg tablet 10 mg PO TID PRN blood pressure 10/01/22 09/30/22 Unknown Rx more than 170 #270 tabs Allergies Allergy/AdvReac Type Severity Reaction Status Date / Time Penicillins Allergy Severe Anaphylaxis Verified 09/29/22 14:19 morphine Allergy Intermediate ADR-Vomitin Verified 09/29/22 14:19 g naproxen Allergy Intermediate ADR-Vomitin Verified 09/29/22 14:19 g lorazepam [From Ativan] AdvReac Severe Becomes Verified 09/29/22 14:19 aggressive. EGGS AdvReac Severe N & V, Uncoded 09/24/22 14:47 Stomach pain, Throat swells shut flu shot AdvReac Severe N & V, Uncoded 09/24/22 14:47 Stomach pain, Throat swells shut nuts AdvReac Severe Vomiting & Uncoded 09/24/22 14:47 throat swells Current Medications Generic Name Dose Route Start Last Admin Trade Name Freq PRN Reason Stop Dose Admin Acetaminophen 650 mg 09/29/22 23:11 09/30/22 15:25 Acetaminophen 325 Mg Tablet PO 650 mg Q6H PRN Administration Mild/Mod Pain Or Temp >/= 101 Aripiprazole 15 mg 09/30/22 09:00 09/30/22 11:51 Aripiprazole 10 Mg Tablet PO 15 mg DAILY JAY JAY Administration Aspirin 81 mg 09/30/22 09:00 09/30/22 11:52 Aspirin 81 Mg Ec Tablet PO 81 mg DAILY JAY JAY Administration Citalopram Hydrobromide 40 mg 09/30/22 09:00 09/30/22 11:52 Citalopram 20 Mg Tablet PO 40 mg DAILY JAY JAY Administration Duloxetine HCl 60 mg 09/30/22 09:00 09/30/22 11:52 Duloxetine 60 Mg Capsule PO 60 mg DAILY JAY JAY Administration Famotidine 20 mg 09/30/22 09:00 09/30/22 11:52 Famotidine 20 Mg Tablet PO 20 mg BID JAY JAY Administration Heparin Sodium (Porcine) 5,000 unit 09/29/22 22:15 09/30/22 11:52 Heparin 5,000 Unit/Ml Inj 1 Ml SUBCUT 5,000 unit Q12H JAY JAY Administration Nicotine 1 patch 09/30/22 09:00 09/30/22 11:52 Nicotine 14 Mg Patch TRANSDERMA 1 patch DAILY JAY JAY Administration PFSH Acute PFSH: Medical History Asthma Generalized anxiety disorder 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 Hx of nephrolithotomy with removal of calculi Hypertensive crisis Major depressive disorder, recurrent, moderate Missed periods Nicotine dependence, cigarettes, uncomplicated Oral abscess Post-traumatic stress disorder, chronic Psychiatric care Surgical History History of removal of ovarian cyst Hx of cholecystectomy Hx of hernia repair Hx of lithotripsy Family History Other CAD (coronary artery disease) Cancer Hypertension Psychiatric illness Stroke Denies family history of Diabetes Chronic kidney disease (CKD) Social History Smoking and tobacco status: current every day smoker cigarettes Packs smoked per day: 1 Years cigarettes smoked: 25 Alcohol intake: never Caregiver/support person: Yes Lives independently: Yes Household members: significant other Housing: House Current occupational status: employed Female Reproductive History: Para: 0 Spontaneous abortions: Yes (all 6 pregnancies) Vitals/I&O/Wt Last Vital Signs Temp 97.0 F L 09/30/22 07:54 Pulse 91 09/30/22 12:21 Resp 19 H 09/30/22 07:54 BP 144/94 09/30/22 12:21 Pulse Ox 96 09/30/22 07:54 O2 Del Method Room Air 09/30/22 07:54 09/30/22 09/30/22 09/30/22 06:59 14:59 22:59 Intake Total 720 / 720 Balance 720 / 720 Weight last 48 hrs Weight 200 lb Physical Exam Narrative: General: alert, NAD HEENT: conj clear, EOMI, PERRL, mmm, Neck: supple, no meningismus Heme: no cervical LAP Respiratory: Inspection: No visible deformity of the chest wall Palpation: Trachea is mildly deviated to the right, bilateral symmetric expansion Percussion: Bilateral tympanic percussion note both anterior and posteriorly Auscultation: Bilateral clear to auscultation both anterior and posteriorly, no crackles wheezing or rhonchi Cardiovascular: rrr, nl s1s2, no mrg Abdomen: soft, nt, nd, no r/g, bs+ Extremities: pulses +, no edema, no c/c : no CVA tenderness Skin: intact, no rash MSK: no back or neck pain Neurologic: grossly intact Data 09/30/22 12:07 09/30/22 07:24 Other Labs: Radiology Impressions Head CT 09/29/22 16:31 IMPRESSION: No acute intracranial abnormality. Head/Neck CTA 09/29/22 16:52 IMPRESSION: 1. The left internal carotid is more faintly opacified in the right side likely related to retrograde opacification. 2. 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 There is a 3 mm inferiorly projecting aneurysm at the level of the anterior communicating artery. 3. The non dominant right vertebral artery terminates in the PICA which can be seen as an anatomic variant. IMPRESSION: 1. 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 2. Spiculated left upper lobe mass measuring 2.2 cm suspicious for lung malignancy. There are mildly prominent mediastinal lymph nodes also present which may be metastatic. Recommend clinical correlation. REFERENCES: NASCET CRITERIA. The degree of stenosis in the cervical segment of the internal carotid artery is based on NASCET criteria. Normal is no stenosis. Mild is less than 50% stenosis. Moderate is 50-69% stenosis. Severe is 70% to 99% stenosis. Total occlusion is no detectable patent lumen. ADDENDUM: 09/29/22 1850 Addendum: The age of the left internal carotid artery occlusion is indeterminate. Correlate with history. There is severe atherosclerotic disease at this level. Posterior to the left upper lobe mass there is also a smaller nodule measuring 6 mm abutting the fissure on series 4, image 11. Recommend attention on follow-up. THIS REPORT CONTAINS FINDINGS THAT MAY BE CRITICAL TO PATIENT CARE. The findings were verbally communicated via telephone conference with Dr Hi at 6:48 PM CDT on 09/29/2022. The findings were acknowledged and understood. Chest X-Ray 09/29/22 18:50 IMPRESSION: Left upper lobe mass measuring 2.2 cm again visualized. This is again suspicious for malignancy and can be further evaluated with dedicated chest CT. Chest CT 09/29/22 22:43 IMPRESSION: Spiculated left upper lobe mass with adjacent smaller satellite nodule measuring 6 mm is unchanged with the comparison CTA. This is again suspicious for malignancy. On chest imaging there are faint ground-glass nodules in the lung apices which may be infectious/inflammatory. Stable mildly prominent mediastinal lymph nodes which are indeterminate. Correlate with clinical symptoms and recommend follow-up. Highly suspicious nodule(s). Consider non-emergent PET/CT, or tissue sampling.(Reference: Kwabena) COMMENTS: Consistent with the [employer] [place] [employer]'s Incidental Findings Committee white paper (J Am [place] Radiol 2017): For any incidental adrenal lesion greater than or equal to 1 cm but less than or equal to 4 cm classified in this report as benign, likely benign, or containing fat (including classification as an adenoma or myelolipoma), no follow-up imaging is recommended per consensus recommendations based on imaging criteria. Further lab evaluation could be pursued if warranted based on clinical findings. REFERENCES: Kwabena Mg, et al. Guidelines for Management of Incidental Pulmonary Nodules Detected on CT Images: From the Fleischner Society 2017. Radiology. 2017;284(1):228-243. Head MRI 09/30/22 22:09 IMPRESSION: 1. Tiny cortical acute lacunar infarcts in the LEFT frontal and parietal lobes. There is a prior lacunar type infarct in the LEFT occipital lobe which is probably remote. 2. Moderate small vessel ischemic type changes throughout the white matter can be seen with hypertension, migraines, vomiting, diabetes and small vessel disease. 3. Several tiny foci of enhancement throughout the brain which I suspect may be vascular in etiology. As the patient does have a lung mass metastatic disease is not evident. Recommend follow-up MRI brain in 3 months with and without IV contrast. Neck MRA 09/30/22 22:09 IMPRESSION: Suboptimal imaging of the carotid arteries by MRI. There is a very short segment occlusion or near complete occlusion involving the proximal LEFT ICA. This was better demonstrated and described by recent CT angiogram. Laboratory Results WBC 8.3 10^3/uL (4.0-10.0) 09/30/22 12:07 Corrected WBC Cancelled 09/30/22 07:24 RBC 4.30 10^6/uL (4.1-5.3) 09/30/22 12:07 Hgb 14.3 g/dL (11.5-15.3) 09/30/22 12:07 Hct 42.5 % (37.0-47.0) 09/30/22 12:07 MCV 98.8 fl (81-99) 09/30/22 12:07 MCH 33.3 pg (28.0-34.0) 09/30/22 12:07 MCHC 33.6 g/dL (30.0-36.0) 09/30/22 12:07 RDW 15.9 % (12.1-15.1) H 09/30/22 12:07 Plt Count 337 10^3/cmm (130-400) 09/30/22 12:07 MPV 8.5 fL (7.4-10.4) 09/30/22 12:07 Gran % Cancelled 09/30/22 07:24 Neut % (Auto) 56.5 % 09/30/22 12:07 Lymph % (Auto) 34.3 % 09/30/22 12:07 Bollinger % (Auto) 5.2 % 09/30/22 12:07 Eos % (Auto) 3.4 % 09/30/22 12:07 Baso % (Auto) 0.4 % 09/30/22 12:07 Neut # (Auto) 4.67 10^3/uL (1.8-7.7) 09/30/22 12:07 Lymph # (Auto) 2.8 10^3/uL (0.8-4.8) 09/30/22 12:07 Bollinger # (Auto) 0.4 10^3/uL (0.2-0.9) 09/30/22 12:07 Eos # (Auto) 0.3 10^3/uL (0.0-0.8) 09/30/22 12:07 Baso # (Auto) 0.0 10^3/uL (0.0-0.1) 09/30/22 12:07 Absolute Gran (auto) Cancelled 09/30/22 07:24 Nucleated RBC % (auto) 0 % 09/30/22 12:07 Nucleated RBCs # 0.0 /100WBC 09/30/22 12:07 Sodium 136 mmol/L (136-145) 09/30/22 07:24 Potassium 4.6 mmol/L (3.5-5.1) 09/30/22 07:24 Chloride 103 mmol/L (98-107) 09/30/22 07:24 Carbon Dioxide 18 mmol/L (22-29) L 09/30/22 07:24 Anion Gap 19.6 (5-19) H 09/30/22 07:24 BUN 12 mg/dL (6-20) 09/30/22 07:24 Creatinine 0.9 mg/dL (0.5-0.9) 09/30/22 07:24 GFR Calculation 67.4 mL/min (90-130) L 09/30/22 07:24 Glucose 95 mg/dL (65-115) 09/30/22 07:24 Estimat Average Glucose 108 09/30/22 07:24 Hemoglobin A1c 5.4 % (4.0-6.0) 09/30/22 07:24 Calculated Osmolality 282 mOsm/kg (285-295) L 09/30/22 07:24 Calcium 8.6 mg/dL (8.5-10.5) 09/30/22 07:24 Iron 67 ug/dL (37-145) 09/29/22 16:59 TIBC 200 mcg/dl 09/29/22 16:59 % Saturation 33.5 % (20-50) 09/29/22 16:59 Unsat Iron Binding 133 ug/dL (112-347) 09/29/22 16:59 Total Bilirubin 0.2 mg/dL (0.15-1.2) 09/30/22 07:24 AST 14 U/L (0-32) 09/30/22 07:24 ALT 15 U/L (0-33) 09/30/22 07:24 Alkaline Phosphatase 96 U/L (35-105) 09/30/22 07:24 Total Protein 6.4 g/dL (6.6-8.7) L 09/30/22 07:24 Albumin 4.1 g/dL (3.5-5.2) 09/30/22 07:24 Globulin 2.3 g/dL (1.3-4.6) 09/30/22 07:24 Triglycerides 347 mg/dL (0-150) H 09/30/22 07:24 Cholesterol 226 mg/dL (0-200) H 09/30/22 07:24 LDL Cholesterol, Calc 132 mg/dL (50-129) H 09/30/22 07:24 Total VLDL Cholesterol 69 mg/dL (0-30) H 09/30/22 07:24 HDL Cholesterol 25 mg/dL (60-100) L 09/30/22 07:24 LDL/HDL Ratio 5.28 RATIO (0.00-3.22) H 09/30/22 07:24 Cholesterol/HDL Ratio 9.04 mg/dL (0.0-4.40) H 09/30/22 07:24 Vitamin B12 375 pg/mL (232-1245) 09/29/22 16:59 Folate 3.2 ng/mL (4.8-37.3) L 09/30/22 07:24 Urine Color Yellow (Yellow) 09/29/22 20:59 Urine Appearance Clear (CLEAR) 09/29/22 20:59 Urine pH 6 (5-7) 09/29/22 20:59 Ur Specific Hostetter 1.010 (1.005-1.030) 09/29/22 20:59 Urine Protein Neg (Negative) 09/29/22 20:59 Urine Glucose (UA) Norm (Normal) 09/29/22 20:59 Urine Ketones Negative (Negative) 09/29/22 20:59 Urine Blood Neg (Negative) 09/29/22 20:59 Urine Nitrate Negative (Negative) 09/29/22 20:59 Urine Bilirubin Neg (Negative) 09/29/22 20:59 Urine Urobilinogen Norm mg/dL (Negative) 09/29/22 20:59 Ur Leukocyte Esterase Negative (Negative) 09/29/22 20:59 Urine Opiates Screen Negative ng/mL (Negative) 09/29/22 20:59 Ur Barbiturates Screen Negative ng/mL (Negative) 09/29/22 20:59 Ur Phencyclidine Scrn Negative ng/mL (Negative) 09/29/22 20:59 Ur Amphetamines Screen Negative ng/mL (Negative) 09/29/22 20:59 U Benzodiazepines Scrn Positive ng/mL (Negative) H 09/29/22 20:59 Urine Cocaine Screen Negative ng/mL (Negative) 09/29/22 20:59 U Marijuana (THC) Screen Negative ng/mL (Negative) 09/29/22 20:59 Ethyl Alcohol < 10 mg/dL (0-10) 09/29/22 16:59 A&P Assessment and plan (1) Lung mass: Incidentally seen left upper lobe 2.2 cm spiculated mass on head and neck CT 09/29/2022. Confirmed with follow-up CT chest Given her extensive smoking history this lesion is very concerning for malignancy. She would definitely need bronchoscopic biopsies For tissue diagnosis-given her acute TIA symptoms 24 hours ago, near complete occlusion of left carotid artery, -There is significant risk of hypotension during anesthesia/Sedative medications Triggering an acute full-blown stroke Especially In the immediate post TIA period. I have discussed the same concerns with anesthesia-and we decided to defer the procedure for now Patient will get her Plavix for at least 3 weeks; meanwhile I will follow-up with her in clinic as outpatient. We will obtain PET CT scan and try to obtain biopsies from any other amenable sites that does not require intubation I will also discuss with IR to see if they can do IR guided CT biopsy thus avoiding complications of anesthesia, however for next 3 weeks she will require Plavix for her TIA If there is no other option to do biopsies-I am going to get neurology clearance prior to proceeding for left upper lobe lesion biopsy (2) Acute lacunar infarction: (3) Blurry vision, bilateral: Consult Attestations Medical Necessity Statement: Deferred to hospitalist Coding Level of Care Code 61083 Diagnoses Lung mass R91.8 Acute lacunar infarction I63.81 Blurry vision, bilateral H53.8 Time Spent (min) 56
[2022-09-30] MEDS: ondansetron 2 mg/ML SDV 2 mL 4 MG IVP (17:06)
[2022-09-30] MEDS: BuSPIRONE 10 mg Tablet PO (17:06)
[2022-09-30] MEDS: atorvastatin 40 mg Tablet PO (21:35)
--- NOTE | 2022-09-30 22:09 | MR_ITS ---
WS: [id number] MRA CAROTID ARTERIES HISTORY: post circulation stroke COMPARISON: None available. TECHNIQUE: MRA is performed with intravenous gadolinium. MIP and source images are reviewed. Quality is MRI carotids examination is significantly limited. Poor visualization of the arteries and venous contamination. Right: No obvious occlusions within the cervical carotid artery. Left: Focal occlusion of the LEFT ICA was much better demonstrated on the CT. The LEFT ICA is much sm aller caliber than the RIGHT. High-grade stenosis with possible occlusion in the proximal LEFT ICA. Subclavian Arteries: Negative. Vertebral Arteries: Not well visualized. MR/MR angio neck w con* [id number] IMPRESSION: Suboptimal imaging of the carotid arteries by MRI. There is a very short segmen t occlusion or near complete occlusion involving the proximal LEFT ICA. This wa s better demonstrated and described by recent CT angiogram.
--- NOTE | 2022-09-30 22:09 | MR_ITS ---
WS: [id number] MRI BRAIN WITH AND WITHOUT CONTRAST HISTORY: post circulation stroke COMPARISON: Prior CT 09/29/2022 TECHNIQUE: Multiplanar imaging performed through the brain with MultiHance 20 ml's IV. Acute diffusion-weighted abnormalities in the cortex of the LEFT cerebrum. Focal cortical effusion de fects in the LEFT frontal and parietal lobes. Possibly in the LEFT occipital lobe this is more subtle . This may be from T2 shine through and prior insult. No right-sided effusion abnormality. There are additional T2 and FLAIR signal hyperintensities related to small vessel ischemic disease also. No susceptibility artifacts or prior lacunar infarcts. Ventricles and extra-axial spaces are normal. Clivus and pituitary gland are normal. Visualized posterior fossa and brainstem are also normal. Nodular vascular enhancement posterior LEFT frontal lobe is probably a small venous angioma mass or v ascular malformation. Additional tiny focus of enhancement in the more anterior LEFT frontal lobe is probably vascular also. There is no mass identified. Patient has a known occlusion of the LEFT ICA. Dural venous sinuses are normal. Paranasal sinuses: Well aerated with no significant disease. Mastoid air cells: Normal. Calvarium and scalp: Normal. MR/MR head wo/w con [id number] IMPRESSION: 1. Tiny cortical acute lacunar infarcts in the LEFT frontal and parietal lobes . There is a prior lacunar type infarct in the LEFT occipital lobe which is pro bably remote. 2. Moderate small vessel ischemic type changes throughout the white matter can be seen with hypertension, migraines, vomiting, diabetes and small vessel dise ase. 3. Several tiny foci of enhancement throughout the brain which I suspect may b e vascular in etiology. As the patient does have a lung mass metastatic disease is not evident. Recommend follow-up MRI brain in 3 months with and without IV contrast.
[2022-10-01 04:00] VITALS: BP 156/105; PULSE 94; RESP 16; TEMP 37; O2SAT 96
[2022-10-01 08:00] VITALS: BP 152/100; PULSE 102; RESP 16; TEMP 36.7; O2SAT 97
[2022-10-01] MEDS: ARIPiprazole 10 mg Tablet 15 MG PO (08:23)
[2022-10-01] MEDS: acetaminophen 325 mg Tablet 650 MG PO (08:23)
[2022-10-01] MEDS: famotidine 20 mg Tablet PO (08:24)
[2022-10-01] MEDS: citalopram 20 mg Tablet 40 MG PO (08:24)
[2022-10-01] MEDS: aspirin 81 mg EC Tablet PO (08:24)
[2022-10-01] MEDS: nicotine 14 mg Patch 1 PATCH TRANSDERMA (08:24)
[2022-10-01] MEDS: duloxetine 60 mg Capsule PO (08:24)
--- NOTE | 2022-10-01 10:52 | PC.CHAP ---
Pastoral Care Encounter/Spiritual Assessment Type of Contact [] Declined roll changer visit [] Patient/Family/Request visit [] Outpatient visit [] Follow-up visit [] Physician referral [] Code/Alert [x] Routine visit [] Staff referral [] Actively dying [] Patient sleeping [] Family support [] [] Out of room [] Palliative care [] [x] Receiving care in room [] Pre-surgical visit [] Trauma [] Long length of stay [] ICU visit [] Other: Relational/Emotional Strength [x] Patient feels connected with others/family/visitors/staff [] Distress [] Loneliness/isolation [] Abandonment Spirituality of Patient [x] Person of [place] [] Attends Jainism of their [place] [x] Believes in Prayer [] Reads Bible or Yazidi materials [] There are Spiritual issues to be addressed [employer] Interventions [x] Prayer [x] Active listening [x] Non-anxious presence [x] Spiritual/emotional support [] Crisis/trauma care [x] Spiritual counseling [] Bereavement support [] Provided bereavement packet [] Provided Bible/devotional materials [] Provided toy/stuffed animal, coloring book to patient or family member [] Provided Communion [] Anointing/Hometown [] Salvation [x] Completed spiritual assessment [] Other: Impact on Illness or Injury [] Angry [] Fearful [] Anxious [] Often cries [] Exhaustion [] Unable to work [] Unable to attend yazdanism [] Unable to walk/stand [] Unable to read [] Unable to drive [] Unable to eat/drink [] Unable to sleep [] Unable to be with family [] Patient intubated [] Other: Summary feeling better has a good attitude well be going home +2 Time spent with patient 5 mins
[2022-10-01 11:49] VITALS: BP 163/102; PULSE 85; RESP 16; TEMP 36.8; O2SAT 96
[2022-10-01 12:38] VITALS: BP 163/102; PULSE 85; RESP 16; TEMP 36.8; O2SAT 96
--- NOTE | 2022-10-01 13:30 | P.DS_ITS ---
Discharge Providers Date of Admission: 09/29/22 20:07 Date of Discharge: October 01, 2022 Attending Provider at Admission: Rex Duarte MD Attending Provider at Discharge: Abigail Figueroa MD Primary Care Provider: Jean Iniguez DO Diagnoses at Discharge Discharge Diagnosis (1) Lung mass: Status: Acute (2) Acute lacunar infarction: Status: Acute (3) Blurry vision, bilateral: Status: Acute (4) Vertigo: Status: Acute Reason for Visit Reason for Visit: dizzy Brief History: Taken from H&P: Leann Monte is a 46 year old female with past medical history of anxiety, major depressive disorder, uncontrolled hypertension on multiple medications, PTSD presented to the ER today after having blurry vision bilaterally getting worse on standing up along with headache for last 2 to 3 days.? Today patient started having weakness and numbness on her right upper limb so she presented to the ER.? As per patient she has been taking her antihypertensives as scheduled.? She checks her blood pressures at home and usually they range from 118 systolic to 160 systolics.? She denies of having any episodes of loss of consciousness but does complain of dizziness on standing up.? Patient gives history of smoking 1 pack/day for many years.? Denies any history of COPD.? Denies any similar complaints in the past.? Gives significant history of CAD and stroke in family. 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 Hospital Course Hospital Course Hospital course as follows: # Acute lacunar infarction: MRI shows tiny cortical acute lacunar infarcts in the left frontal and parietal lobes on MRI.? Old left occipital lobe is seen. MRA of the brain shows short segment occlusion or near complete occlusion involving the left proximal ICA. Given complete occlusion not currently a candidate for surgical intervention. She has been started on aspirin 81 mg daily, Plavix 75mg daily and atorvastatin 40 mg daily In the hospital BP ranged between 1 1 7-1 51 off antihypertensives follow up with neurology as outpatient # Vertigo/ Dizziness: Her vital signs show orthostatic drop in blood pressure from 1 50-1 17 with position changes. At discharge she was resumed on Lisinopril 20mg daily. Other antihypertnsives held due to orthostasis Instrcuted to keep a BP chart at home and take it to PCP in one week. may use hydralazine prn for SBP > 170 PT/OT/speech evaluation appreciated (3) Blurry vision, bilateral: Currently resolved (4) Carotid artery, internal, occlusion: Complete occlusion (5) Lung mass: CT chest raises suspicion for spiculated mass concerning for malignancy Pulmonology was consulted, planned for biopsy as outpatient once she is off plavix . Currently it was deemed that risk of BP fluctuation with anesthesia may be detrimental to cerebral perfusion and therefore procedure deferred (6) Essential hypertension: medications adjusted as above Physical Exam Narrative: General: No acute distress, AO x3 HEENT: PERRLA, pupils bilaterally equal and reactive, pallors not present Chest: Normal vesicular breath sounds, no added sounds, equal good air entry bilaterally CVS: S1-S2 regular, no murmurs, no tachycardia, no gallops, no rubs Abdomen: Soft, nontender, no organomegaly, bowel sounds present Neuro: No focal deficits, no facial deformity, AO x3, power 5/5 in all limbs Discharge Data Studies Completed and Pending Completed Studies During Hospitalization Category Date Time Status CT chest wo con [id number] Routine Cat Scan 09/29/22 22:[address] head wo con* [id number] Stat Cat Scan 09/29/22 16:31 Completed CTA head neck [CT angio headneck* [id number]] Stat Cat Scan 09/29/22 16:52 Completed CXRP [XR chest 1V portable [id number]] Stat Exams 09/29/22 18:50 Completed MR angio neck w con* [id number] Urgent MRI 09/30/22 22:09 Completed MR head wo/w con [id number] Urgent MRI 09/30/22 22:09 Completed CV. echo complete* [id number] Routine Ultrasound 09/29/22 22:09 Completed Radiology Impressions Head CT 09/29/22 16:31 IMPRESSION: No acute intracranial abnormality. Head/Neck CTA 09/29/22 16:52 IMPRESSION: 1. The left internal carotid is more faintly opacified in the right side likely related to retrograde opacification. 2. 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 There is a 3 mm inferiorly projecting aneurysm at the level of the anterior communicating artery. 3. The non dominant right vertebral artery terminates in the PICA which can be seen as an anatomic variant. IMPRESSION: 1. 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 2. Spiculated left upper lobe mass measuring 2.2 cm suspicious for lung malignancy. There are mildly prominent mediastinal lymph nodes also present which may be metastatic. Recommend clinical correlation. REFERENCES: NASCET CRITERIA. The degree of stenosis in the cervical segment of the internal carotid artery is based on NASCET criteria. Normal is no stenosis. Mild is less than 50% stenosis. Moderate is 50-69% stenosis. Severe is 70% to 99% stenosis. Total occlusion is no detectable patent lumen. ADDENDUM: 09/29/22 [id number] Addendum: The age of the left internal carotid artery occlusion is indeterminate. Correlate with history. There is severe atherosclerotic disease at this level. Posterior to the left upper lobe mass there is also a smaller nodule measuring 6 mm abutting the fissure on series 4, image 11. Recommend attention on follow-up. THIS REPORT CONTAINS FINDINGS THAT MAY BE CRITICAL TO PATIENT CARE. The findings were verbally communicated via telephone conference with Dr Hi at 6:48 PM CDT on 09/29/2022. The findings were acknowledged and understood. Chest X-Ray 09/29/22 18:50 IMPRESSION: Left upper lobe mass measuring 2.2 cm again visualized. This is again suspicious for malignancy and can be further evaluated with dedicated chest CT. Chest CT 09/29/22 22:43 IMPRESSION: Spiculated left upper lobe mass with adjacent smaller satellite nodule measuring 6 mm is unchanged with the comparison CTA. This is again suspicious for malignancy. On chest imaging there are faint ground-glass nodules in the lung apices which may be infectious/inflammatory. Stable mildly prominent mediastinal lymph nodes which are indeterminate. Correlate with clinical symptoms and recommend follow-up. Highly suspicious nodule(s). Consider non-emergent PET/CT, or tissue sampling.(Reference: Kwabena) COMMENTS: Consistent with the [place] [employer]'s Incidental Findings Committee white paper (J Am [place] Radiol 2017): For any incidental adrenal lesion greater than or equal to 1 cm but less than or equal to 4 cm classified in this report as benign, likely benign, or containing fat (including classification as an adenoma or myelolipoma), no follow-up imaging is recommended per consensus recommendations based on imaging criteria. Further lab evaluation could be pursued if warranted based on clinical findings. REFERENCES: Kwabena Mg, et al. Guidelines for Management of Incidental Pulmonary Nodules Detected on CT Images: From the Fleischner Society 2017. Radiology. 2017;284(1):228-243. Head MRI 09/30/22 22:09 IMPRESSION: 1. Tiny cortical acute lacunar infarcts in the LEFT frontal and parietal lobes. There is a prior lacunar type infarct in the LEFT occipital lobe which is probably remote. 2. Moderate small vessel ischemic type changes throughout the white matter can be seen with hypertension, migraines, vomiting, diabetes and small vessel disease. 3. Several tiny foci of enhancement throughout the brain which I suspect may be vascular in etiology. As the patient does have a lung mass metastatic disease is not evident. Recommend follow-up MRI brain in 3 months with and without IV contrast. Neck MRA 09/30/22 22:09 IMPRESSION: Suboptimal imaging of the carotid arteries by MRI. There is a very short segment occlusion or near complete occlusion involving the proximal LEFT ICA. This was better demonstrated and described by recent CT angiogram. Laboratory Results WBC 8.3 10^3/uL (4.0-10.0) 09/30/22 12:07 Corrected WBC Cancelled 09/30/22 07:24 RBC 4.30 10^6/uL (4.1-5.3) 09/30/22 12:07 Hgb 14.3 g/dL (11.5-15.3) 09/30/22 12:07 Hct 42.5 % (37.0-47.0) 09/30/22 12:07 MCV 98.8 fl (81-99) 09/30/22 12:07 MCH 33.3 pg (28.0-34.0) 09/30/22 12:07 MCHC 33.6 g/dL (30.0-36.0) 09/30/22 12:07 RDW 15.9 % (12.1-15.1) H 09/30/22 12:07 Plt Count 337 10^3/cmm (130-400) 09/30/22 12:07 MPV 8.5 fL (7.4-10.4) 09/30/22 12:07 Gran % Cancelled 09/30/22 07:24 Neut % (Auto) 56.5 % 09/30/22 12:07 Lymph % (Auto) 34.3 % 09/30/22 12:07 [place] % (Auto) 5.2 % 09/30/22 12:07 Eos % (Auto) 3.4 % 09/30/22 12:07 Baso % (Auto) 0.4 % 09/30/22 12:07 Neut # (Auto) 4.67 10^3/uL (1.8-7.7) 09/30/22 12:07 Lymph # (Auto) 2.8 10^3/uL (0.8-4.8) 09/30/22 12:07 [place] # (Auto) 0.4 10^3/uL (0.2-0.9) 09/30/22 12:07 Eos # (Auto) 0.3 10^3/uL (0.0-0.8) 09/30/22 12:07 Baso # (Auto) 0.0 10^3/uL (0.0-0.1) 09/30/22 12:07 Absolute Gran (auto) Cancelled 09/30/22 07:24 Nucleated RBC % (auto) 0 % 09/30/22 12:07 Nucleated RBCs # 0.0 /100WBC 09/30/22 12:07 Sodium 136 mmol/L (136-145) 09/30/22 07:24 Potassium 4.6 mmol/L (3.5-5.1) 09/30/22 07:24 Chloride 103 mmol/L (98-107) 09/30/22 07:24 Carbon Dioxide 18 mmol/L (22-29) L 09/30/22 07:24 Anion Gap 19.6 (5-19) H 09/30/22 07:24 BUN 12 mg/dL (6-20) 09/30/22 07:24 Creatinine 0.9 mg/dL (0.5-0.9) 09/30/22 07:24 GFR Calculation 67.4 mL/min (90-130) L 09/30/22 07:24 Glucose 95 mg/dL (65-115) 09/30/22 07:24 Estimat Average Glucose 108 09/30/22 07:24 Hemoglobin A1c 5.4 % (4.0-6.0) 09/30/22 07:24 Calculated Osmolality 282 mOsm/kg (285-295) L 09/30/22 07:24 Calcium 8.6 mg/dL (8.5-10.5) 09/30/22 07:24 Iron 67 ug/dL (37-145) 09/29/22 16:59 TIBC 200 mcg/dl 09/29/22 16:59 % Saturation 33.5 % (20-50) 09/29/22 16:59 Unsat Iron Binding 133 ug/dL (112-347) 09/29/22 16:59 Total Bilirubin 0.2 mg/dL (0.15-1.2) 09/30/22 07:24 AST 14 U/L (0-32) 09/30/22 07:24 ALT 15 U/L (0-33) 09/30/22 07:24 Alkaline Phosphatase 96 U/L (35-105) 09/30/22 07:24 Total Protein 6.4 g/dL (6.6-8.7) L 09/30/22 07:24 Albumin 4.1 g/dL (3.5-5.2) 09/30/22 07:24 Globulin 2.3 g/dL (1.3-4.6) 09/30/22 07:24 Triglycerides 347 mg/dL (0-150) H 09/30/22 07:24 Cholesterol 226 mg/dL (0-200) H 09/30/22 07:24 LDL Cholesterol, Calc 132 mg/dL (50-129) H 09/30/22 07:24 Total VLDL Cholesterol 69 mg/dL (0-30) H 09/30/22 07:24 HDL Cholesterol 25 mg/dL (60-100) L 09/30/22 07:24 LDL/HDL Ratio 5.28 RATIO (0.00-3.22) H 09/30/22 07:24 Cholesterol/HDL Ratio 9.04 mg/dL (0.0-4.40) H 09/30/22 07:24 Vitamin B12 375 pg/mL (232-1245) 09/29/22 16:59 Folate 3.2 ng/mL (4.8-37.3) L 09/30/22 07:24 Urine Color Yellow (Yellow) 09/29/22 20:59 Urine Appearance Clear (CLEAR) 09/29/22 20:59 Urine pH 6 (5-7) 09/29/22 20:59 Ur Specific Macy 1.010 (1.005-1.030) 09/29/22 20:59 Urine Protein Neg (Negative) 09/29/22 20:59 Urine Glucose (UA) Norm (Normal) 09/29/22 20:59 Urine Ketones Negative (Negative) 09/29/22 20:59 Urine Blood Neg (Negative) 09/29/22 20:59 Urine Nitrate Negative (Negative) 09/29/22 20:59 Urine Bilirubin Neg (Negative) 09/29/22 20:59 Urine Urobilinogen Norm mg/dL (Negative) 09/29/22 20:59 Ur Leukocyte Esterase Negative (Negative) 09/29/22 20:59 Urine Opiates Screen Negative ng/mL (Negative) 09/29/22 20:59 Ur Barbiturates Screen Negative ng/mL (Negative) 09/29/22 20:59 Ur Phencyclidine Scrn Negative ng/mL (Negative) 09/29/22 20:59 Ur Amphetamines Screen Negative ng/mL (Negative) 09/29/22 20:59 U Benzodiazepines Scrn Positive ng/mL (Negative) H 09/29/22 20:59 Urine Cocaine Screen Negative ng/mL (Negative) 09/29/22 20:59 U Marijuana (THC) Screen Negative ng/mL (Negative) 09/29/22 20:59 Ethyl Alcohol < 10 mg/dL (0-10) 09/29/22 16:59 Vitals Last Vital Signs Temp 98.3 F 10/01/22 12:38 Pulse 85 10/01/22 12:38 Resp 16 10/01/22 12:38 BP 163/102 10/01/22 12:38 Pulse Ox 96 10/01/22 12:38 O2 Del Method Room Air 10/01/22 11:49 Discharge Plan Discharge Patient Disposition: Home Condition: Stable Prescriptions: New atorvastatin 40 mg Tablet 40 mg PO BEDTIME 30 Days Qty: 30 2RF aspirin 81 mg Tablet,Delayed Release (Dr/Ec) 81 mg PO DAILY 30 Days Qty: 30 2RF famotidine 20 mg Tablet 20 mg PO BID 30 Days Qty: 60 0RF Plavix 75 mg tablet 75 mg PO DAILY 30 Days Qty: 30 0RF Continued nicotine (polacrilex) 4 mg gum 4 mg buccal Q2H Qty: 100 2RF nicotine 21-14-7 mg/24 hr patch, TD daily, sequential See Rx Instructions transdermal .COMPLEX Qty: 56 0RF Rx Instructions: apply 1-21 mg NICOTINE PATCH daily for 28 days; follow with 1-14 mg PATCH daily for 14 days, then 1-7mg PATCH daily for 14 days transdermal albuterol sulfate 90 mcg/actuation aerosol powdr breath activated 2 inh INHALATION Q6H PRN (Reason: shortness of breath or wheezing) Qty: 1 1RF hydroxyzine HCl 50 mg tablet 50 - 100 mg PO BEDTIME@2200 PRN (Reason: Anxiety) Qty: 90 1RF citalopram 40 mg tablet 40 mg PO DAILY Qty: 90 1RF lisinopril 20 mg tablet 20 mg PO DAILY Qty: 90 1RF ondansetron 4 mg tablet,disintegrating See Rx Instructions .ROUTE .COMPLEX Qty: 14 0RF Dose Instruction: DISSOLVE ONE TABLET BY MOUTH EVERY TWELVE HOURS NEEDED FOR NAUSEA AND VOMITING Rx Instructions: DISSOLVE ONE TABLET BY MOUTH EVERY TWELVE HOURS NEEDED FOR NAUSEA AND VOMITING buspirone 10 mg tablet See Rx Instructions .ROUTE .COMPLEX Qty: 60 3RF Dose Instruction: take 1/2 to 1 tablet BY MOUTH TWICE DAILY NEEDED FOR ANXIETY Rx Instructions: take 1/2 to 1 tablet BY MOUTH TWICE DAILY NEEDED FOR ANXIETY trazodone 100 mg tablet 100 mg PO BEDTIME PRN (Reason: Sleep) Qty: 30 2RF spironolactone 25 mg tablet 25 mg PO BID aripiprazole 15 mg tablet 15 mg PO DAILY duloxetine 60 mg capsule,delayed release(DR/EC) 60 mg PO DAILY cyclobenzaprine 10 mg tablet 10 mg PO BEDTIME PRN (Reason: muscle spasm) Changed hydralazine 10 mg tablet 10 mg PO TID PRN (Reason: blood pressure more than 170) Qty: 270 1RF Discontinued nifedipine 10 mg capsule 10 mg PO TID 30 Days Qty: 270 1RF duloxetine 60 mg capsule,delayed release(DR/EC) 60 mg PO DAILY Qty: 30 0RF Rx Instructions: Start after 1 month on 30 mg, due to begin on 10/17/22 clonidine HCl 0.1 mg tablet 0.1 mg PO TID Discharge Orders: Discharge Order (Routine); Ordered 10/01/22 Ordered By: Abigail Figueroa Referrals: Jean Iniguez DO [Primary Care Provider] - 10/13/22 3:00 pm Fernie Corley MD [Physician] - 11/05/22 11:45 am (post stroke follow up ) Datar,Boby Moscoso MD [Physician] - 3 weeks (Clinic will contact you with appointment.) Discharge Diet: Cardiac Discharge Activity: Resume usual activity Patient Instructions: Famotidine (By mouth), Aspirin (By mouth), Atorvastatin (By mouth), Clopidogrel (By mouth), Opioid Safety Discharge Attestations Time Spent in Discharge Care*: greater than 30 min Quality Metrics Clinical Quality Measures [ Cerebrovascular Accident { Contraindication to Antithrombotic: None; antithrombotic prescribed; Contraindication to Anticoagulation: Overlap treatment not indicated; Contraindication to Statin: None; Statin prescribed;}] Coding Level of Care Code Acute Code for [facility] Fwd Diagnoses Lung mass R91.8 Acute lacunar infarction I63.81 Blurry vision, bilateral H53.8 Vertigo R42
== END 2022-10-01 12:39 | disposition home or self-care (01) | DRG 65 ==
LOC: ER 17:49 → MEDSURG 20:27
PROVIDERS: Family Medicine; Admitting Provider Student in an Organized Health Care Education/Training Program; Emergency Provider Emergency Medicine; PCP Family Medicine; Visit Provider Student in an Organized Health Care Education/Training Program
DX: I63.81 Other cerebral infarction due to occlusion or stenosis of small artery (principal); F33.1 Major depressive disorder, recurrent, moderate; R29.700 NIHSS score 0; F41.1 Generalized anxiety disorder; I10 Essential (primary) hypertension; F43.12 Post-traumatic stress disorder, chronic; Z82.49 Family history of ischemic heart disease and other diseases of the circulatory system; Z86.73 Personal history of transient ischemic attack (TIA), and cerebral infarction without residual deficits; I95.1 Orthostatic hypotension; R91.8 Other nonspecific abnormal finding of lung field; Z79.51 Long term (current) use of inhaled steroids; Z79.891 Long term (current) use of opiate analgesic; F17.210 Nicotine dependence, cigarettes, uncomplicated; J45.909 Unspecified asthma, uncomplicated
CPT/HCPCS: 36415; 70450; 70496; 70498; 70548; 70553; 71045; 71250; 80053; 80061; 80306; 80307; 81003; 82607; 82746; 83036; 83540; 83550; 85025; 92523; 92610; 93005; 93306; 96372; 97110; 97161; 97165; 97530; 99285; G0378; J1644; J2405; Q9967

== ENCOUNTER 2022-10-06 10:04 | Emergency (ER) | payer BC, SELFPAY ==
[2022-10-06] VITALS (7 sets, daily range): BP systolic 127–163; BP diastolic 99–109; PULSE 86–113; RESP 16–24; TEMP 36.8; O2SAT 95–98; BMI 34.3
--- NOTE | 2022-10-06 10:45 | ECG_ITS ---
[facility] Test Date: 2022-10-06 Pat Name: Leann Monte Department: Room: Gender: Female Patient Registration Specialist: : 1975 Requested By: Luiz Spencer Order Number: [id number] Nelly MD: Mandy Hanson M.D. Measurements Intervals [place] Rate: 110 P: 54 AK: 126 QRS: 21 QRSD: 86 T: 116 QT: 340 QTc: 462 Interpretive Statements SINUS TACHYCARDIA ST DEVIATION AND MODERATE T-WAVE ABNORMALITY, CONSIDER LATERAL ISCHEMIA [-0.1+ mV T-WAVE IN I/aVL/V5/V6] Compared to ECG 09/29/2022 17:03:05 Sinus rhythm no longer present T-wave abnormality still present Possible ischemia still present Electronically Signed On 10-06-2022 20:26:05 CDT by Mandy Hanson M.D. [id number]
[2022-10-06 10:48] LABS: Basophils % 0.4 %; Eosinophils # 0.3 10^3/uL (0.0-0.8); Eosinophils % 2.8 %; Hematocrit 40.4 % (37.0-47.0); Hemoglobin 13.7 g/dL (11.5-15.3); Lymphocytes # 3.5 10^3/uL (0.8-4.8); Lymphocytes % 36.4 %; Mean Corpuscular HGB Conc 33.9 g/dL (30.0-36.0); Mean Corpuscular Hemoglobin 33.6 pg (28.0-34.0); Mean Platelet Volume 8.5 fL (7.4-10.4); Monocytes # 0.5 10^3/uL (0.2-0.9); Monocytes % 5.2 %; Neutrophils # 5.32 10^3/uL (1.8-7.7); Nucleated Red Blood Cells % 0 %; Platelet Count 322 10^3/cmm (130-400); Red Blood Count 4.08 10^6/uL (4.1-5.3); Red Cell Distribution Width 15.2 % (12.1-15.1); White Blood Count 9.7 10^3/uL (4.0-10.0)
--- NOTE | 2022-10-06 11:07 | USCV_ITS ---
Leann Monte Age: 46 Gender: F : 1975 Exam Date: 10/06/2022 11:40 Ordering Phys: Luiz Spencer Technologist: Con Schneider Exam [place] [facility] [place]: pain/swelling of calf PROCEDURES: Venous duplex imaging was performed in only the right lower extremity. The following venous structures were evaluated: common femoral vein, profunda vein, proximal portion of the greater saphenous vein, superficial femoral vein, and the popliteal vein. In addition, the posterior tibial and peroneal trunk were evaluated. Serial compression, augmentation maneuvers, and spectral Doppler flow evaluation were performed. FINDINGS: Normal 2-D Doppler and augmentation and compressibility throughout the lower extremity venous structures. Additional imaging through the proximal calf veins also reveals no thrombus. Limited evaluation of the greater saphenous vein is patent with no thrombus. CONCLUSIONS No DVT right lower extremity. Dr. Madina Martinez DO (Electronically Signed) Final Date: 06 October 2022 11:59 S
--- NOTE | 2022-10-06 11:07 | XRR_ITS ---
PROCEDURE INFORMATION: Exam: XR Chest Exam date and time: 10/06/2022 11:32 AM Age: 46 years old Clinical indication: Pain; Angina pectoris; Additional info: Chest pain TECHNIQUE: Imaging protocol: Radiologic exam of the chest. Views: 1 view. COMPARISON: CT chest con [id number] 09/29/2022 11:37 PM FINDINGS: Lungs: Unremarkable. No consolidation. Pleural spaces: Unremarkable. No pleural effusion. No pneumothorax. Heart/Mediastinum: Unremarkable. No cardiomegaly. Bones/joints: Unremarkable. XR/XR chest 1V portable [id number] IMPRESSION: No acute findings.
[2022-10-06 11:10] LABS: Alanine Aminotransferase 46 U/L (0-33); Albumin Level 4.1 g/dL (3.5-5.2); Alkaline Phosphatase 102 U/L (35-105); Aspartate Amino Transferase 28 U/L (0-32); Blood Urea Nitrogen 11 mg/dL (6-20); Calcium 9.1 mg/dL (8.5-10.5); Carbon Dioxide 21 mmol/L (22-29); Chloride 106 mmol/L (98-107); Glomerular Filtration Rate 67.4 mL/min (90-130); Glucose 95 mg/dL (65-115); Osmolality Calculated 287 mOsm/kg (285-295); Sodium 139 mmol/L (136-145); Total Bilirubin 0.3 mg/dL (0.15-1.2); Total Protein 7.1 g/dL (6.6-8.7)
[2022-10-06 11:12] LABS: Slide Review Slide Review Perform
[2022-10-06 11:13] LABS: Anion Gap 16.1 (5-19); Potassium 4.1 mmol/L (3.5-5.1)
--- NOTE | 2022-10-06 11:22 | W.ED.GENADLT ---
HPI - General Adult General: Chief complaint: General Medical Stated complaint: right leg pain, previous stroke Time Seen by Provider: 10/06/22 11:01 History of Present Illness: 46-year-old female presents emergency department chief complaint of right calf pain. Patient recently released from our facility recent diagnosis of mini stroke as well as a left-sided lung mass that she is already scheduled to be seen by pulmonology for this upcoming week for possible biopsy and/or surgery. Patient reports longstanding history of smoking reports there is a his significant history of blood clots in the family patient presents after having waking up this morning with atraumatic right calf pain also increased shortness of breath she reports no blood in her sputum or productive cough patient does not endorse any known history of underlying heart issues she presents to the ER for further assessment and management. Currently the patient is on aspirin as well as Plavix. Associated symptoms: Reports chest pain; Deny dyspnea, headache(s), malaise, nausea, rash, palpitations or vomiting Review of Systems General: Reports: 10 or more systems reviewed and unremarkable except in HPI and below Const: Denies: fever(s), chills, fatigue or malaise Eyes: Denies: change in vision or blurry vision Card: Reports: chest pain and dyspnea on exertion; Denies: palpitations Resp: Denies: dyspnea GI: Denies: abdominal pain, nausea or vomiting : Denies: flank pain Musc: Reports: extremity pain and extremity swelling Skin/Breast: Denies: rash or pruritus Neuro: Denies: headache(s) Psych: Denies: anxiety or depression Simon/Lymph: Denies: easy bleeding All/Imm: Denies: urticaria, throat swelling or facial swelling PFSH ED PFSH: Medical History Asthma Generalized anxiety disorder 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 Hx of nephrolithotomy with removal of calculi Hypertensive crisis Major depressive disorder, recurrent, moderate Missed periods Nicotine dependence, cigarettes, uncomplicated Oral abscess Post-traumatic stress disorder, chronic Psychiatric care Surgical History History of removal of ovarian cyst Hx of cholecystectomy Hx of hernia repair Hx of lithotripsy Family History Other CAD (coronary artery disease) Cancer Hypertension Psychiatric illness Stroke Denies family history of Diabetes Chronic kidney disease (CKD) Social History Smoking and tobacco status: current every day smoker cigarettes Packs smoked per day: 1 Years cigarettes smoked: 25 Alcohol intake: never Caregiver/support person: Yes Lives independently: Yes Household members: significant other Housing: House Current occupational status: employed Female Reproductive History: Para: 0 Spontaneous abortions: Yes (all 6 pregnancies) Physical Exam Const: COMMON NORMALS: no acute distress, patient oriented x3 and healthy appearing HENMT: COMMON NORMALS: normocephalic and atraumatic HEAD & SCALP: normocephalic and atraumatic Eye: COMMON NORMALS: Equal, round and reactive pupils present and EOMs intact bilaterally PUPIL: Yes Equal, round and reactive pupils present Neck/C-Spine: COMMON NORMALS: full ROM, supple and no JVD Lymph: LYMPHATIC: no lymphadenopathy noted Chest: COMMONS NORMALS: normal inspection of the chest and normal palpation of entire chest wall Resp: COMMON NORMALS: normal respiratory effort (Diminished breath sounds appreciated bilaterally with no obvious wheezing c), No retractions and clear to auscultation bilaterally EFFORT & INSPECTION: Yes able to speak in complete sentences and Yes symmetric chest movement AUSCULTATION: clear to auscultation bilaterally Cardio: COMMON NORMALS: no JVD, regular rate and regular rhythm RATE: regular rate RHYTHM: regular rhythm GI: COMMON NORMALS: Normal to inspection, nondistended, normoactive bowel sounds present, Soft to palpation and non-tender INSPECTION: Yes normal to inspection PALPATION: Yes Soft to palpation : COMMON NORMALS: Yes no CVA tenderness BLADDER/KIDNEY EXAM: Yes no CVA tenderness Back/Pelvis: COMMON NORMALS: no CVA tenderness Extremity: COMMON NORMALS: full ROM; negative for normal to inspection (Mild pain and swelling appreciated to the right posterior calf neurovascula) Neuro: COMMON NORMALS: patient oriented x3, CN's II-XII intact bilaterally, moves all extremities and no focal motor deficits Psych: COMMON NORMALS: mental status grossly normal, Normal thought process present, cooperative and normal affect THOUGHT PROCESS: Normal thought process present Skin: COMMON NORMALS: no rashes or lesions noted GENERAL SKIN EXAM: no rashes or lesions noted Course Vital Signs: Vital signs: Vital Signs Temperature 98.2 F 10/06/22 10:41 Pulse Rate 95 10/06/22 12:24 Respiratory Rate 18 10/06/22 12:24 Blood Pressure 137/100 10/06/22 12:24 Pulse Oximetry 95 10/06/22 12:24 Oxygen Delivery Me thod Room Air 10/06/22 10:41 MDM - General Adult Medical Decision Making Due to the patient's symptoms and condition will be status basic lab work and imaging will be obtained Concerns of blood clot or DVT in the right calf is prominent due to patient's significant history we will be also doing a basic cardiac work-up for this patient patient may require a CT angiogram of the chest to further rule out pulmonary embolism current oxygenation is 96% on room air which patient does not require any supplemental oxygen so pulmonary embolism is less likely will continue to follow. Patient's 2 troponins and 2-hour troponin came back unremarkable patient upon reassessment in stable condition the ultrasound also came back unremarkable patient be subcu discharged home advised for the follow-up primary care in 2 to 3 days in which she was advised to return the interim if any of her symptoms persist or worse. Lab Data 10/06/22 10:35 10/06/22 10:35 Radiology Impressions Chest X-Ray 10/06/22 11:07 IMPRESSION: No acute findings. Laboratory Results WBC 9.7 10^3/uL (4.0-10.0) 10/06/22 10:35 RBC 4.08 10^6/uL (4.1-5.3) L 10/06/22 10:35 Hgb 13.7 g/dL (11.5-15.3) 10/06/22 10:35 Hct 40.4 % (37.0-47.0) 10/06/22 10:35 MCV 99.0 fl (81-99) 10/06/22 10:35 MCH 33.6 pg (28.0-34.0) 10/06/22 10:35 MCHC 33.9 g/dL (30.0-36.0) 10/06/22 10:35 RDW 15.2 % (12.1-15.1) H 10/06/22 10:35 Plt Count 322 10^3/cmm (130-400) 10/06/22 10:35 MPV 8.5 fL (7.4-10.4) 10/06/22 10:35 Neut % (Auto) 55.0 % 10/06/22 10:35 Lymph % (Auto) 36.4 % 10/06/22 10:35 [place] % (Auto) 5.2 % 10/06/22 10:35 Eos % (Auto) 2.8 % 10/06/22 10:35 Baso % (Auto) 0.4 % 10/06/22 10:35 Neut # (Auto) 5.32 10^3/uL (1.8-7.7) 10/06/22 10:35 Lymph # (Auto) 3.5 10^3/uL (0.8-4.8) 10/06/22 10:35 [place] # (Auto) 0.5 10^3/uL (0.2-0.9) 10/06/22 10:35 Eos # (Auto) 0.3 10^3/uL (0.0-0.8) 10/06/22 10:35 Baso # (Auto) 0.0 10^3/uL (0.0-0.1) 10/06/22 10:35 Nucleated RBC % (auto) 0 % 10/06/22 10:35 Nucleated RBCs # 0.0 /100WBC 10/06/22 10:35 Sodium 139 mmol/L (136-145) 10/06/22 10:35 Potassium 4.1 mmol/L (3.5-5.1) 10/06/22 10:35 Chloride 106 mmol/L (98-107) 10/06/22 10:35 Carbon Dioxide 21 mmol/L (22-29) L 10/06/22 10:35 Anion Gap 16.1 (5-19) 10/06/22 10:35 BUN 11 mg/dL (6-20) 10/06/22 10:35 Creatinine 0.9 mg/dL (0.5-0.9) 10/06/22 10:35 GFR Calculation 67.4 mL/min (90-130) L 10/06/22 10:35 Glucose 95 mg/dL (65-115) 10/06/22 10:35 Calculated Osmolality 287 mOsm/kg (285-295) 10/06/22 10:35 Calcium 9.1 mg/dL (8.5-10.5) 10/06/22 10:35 Total Bilirubin 0.3 mg/dL (0.15-1.2) 10/06/22 10:35 AST 28 U/L (0-32) 10/06/22 10:35 ALT 46 U/L (0-33) H 10/06/22 10:35 Alkaline Phosphatase 102 U/L (35-105) 10/06/22 10:35 Troponin T Baseline 6 ng/L (0-10) 10/06/22 10:35 Troponin T 120 Minute 6.00 ng/L (0-10) 10/06/22 12:56 C-Reactive Protein 8.4 mg/L (0.0-4.9) H 10/06/22 10:35 NT-Pro-B Natriuret Pep 202 pg/mL (0-125) H 10/06/22 10:35 Total Protein 7.1 g/dL (6.6-8.7) 10/06/22 10:35 Albumin 4.1 g/dL (3.5-5.2) 10/06/22 10:35 Globulin 3.0 g/dL (1.3-4.6) 10/06/22 10:35 EKG Data Normal sinus rhythm rate of [address] segment depression V4 V5 with no reciprocal changes: Computer generated interpretation: Chest X-Ray 10/06/22 11:07 IMPRESSION: No acute findings. Discharge Plan Discharge Patient Disposition: Home Clinical Impression: Pain of right calf, Chest pain Condition: Stable Prescriptions: New tramadol 50 mg tablet 50 mg PO Q6H PRN (Reason: pain) Qty: 10 0RF No Action nicotine (polacrilex) 4 mg gum 4 mg buccal Q2H Qty: 100 2RF nicotine 21-14-7 mg/24 hr patch, TD daily, sequential See Rx Instructions transdermal .COMPLEX Qty: 56 0RF Rx Instructions: apply 1-21 mg NICOTINE PATCH daily for 28 days; follow with 1-14 mg PATCH daily for 14 days, then 1-7mg PATCH daily for 14 days transdermal albuterol sulfate 90 mcg/actuation aerosol powdr breath activated 2 inh INHALATION Q6H PRN (Reason: shortness of breath or wheezing) Qty: 1 1RF hydroxyzine HCl 50 mg tablet 50 - 100 mg PO BEDTIME@2200 PRN (Reason: Anxiety) Qty: 90 1RF citalopram 40 mg tablet 40 mg PO DAILY Qty: 90 1RF lisinopril 20 mg tablet 20 mg PO DAILY Qty: 90 1RF ondansetron 4 mg tablet,disintegrating See Rx Instructions .ROUTE .COMPLEX Qty: 14 0RF Dose Instruction: DISSOLVE ONE TABLET BY MOUTH EVERY TWELVE HOURS NEEDED FOR NAUSEA AND VOMITING Rx Instructions: DISSOLVE ONE TABLET BY MOUTH EVERY TWELVE HOURS NEEDED FOR NAUSEA AND VOMITING buspirone 10 mg tablet See Rx Instructions .ROUTE .COMPLEX Qty: 60 3RF Dose Instruction: take 1/2 to 1 tablet BY MOUTH TWICE DAILY NEEDED FOR ANXIETY Rx Instructions: take 1/2 to 1 tablet BY MOUTH TWICE DAILY NEEDED FOR ANXIETY trazodone 100 mg tablet 100 mg PO BEDTIME PRN (Reason: Sleep) Qty: 30 2RF spironolactone 25 mg tablet 25 mg PO BID aripiprazole 15 mg tablet 15 mg PO DAILY cyclobenzaprine 10 mg tablet 10 mg PO BEDTIME PRN (Reason: muscle spasm) atorvastatin 40 mg Tablet 40 mg PO BEDTIME 30 Days Qty: 30 2RF aspirin 81 mg Tablet,Delayed Release (Dr/Ec) 81 mg PO DAILY 30 Days Qty: 30 2RF famotidine 20 mg Tablet 20 mg PO BID 30 Days Qty: 60 0RF clopidogrel [Plavix] 75 mg tablet 75 mg PO DAILY 30 Days Qty: 30 0RF hydralazine 10 mg tablet 10 mg PO TID PRN (Reason: blood pressure more than 170) Qty: 270 1RF Discharge Orders: Discharge ED (Routine); Ordered 10/06/22 Ordered By: Luiz Spencer Referrals: Jean Iniguez DO [Primary Care Provider] - 1-3 days Discharge Diet: Cardiac Discharge Activity: Increase activity as tolerated Patient Instructions: Chest Pain (ED), Opioid Safety, Pain Management Activity Restrictions/Additional Instructions: Please further follow-up with your primary care doctor in 2 to 3 days, please take medications as prescribed and please return in the interim if any of your symptoms persist or worse. Coding Level of Care Code ED Fast Food Delivery Driver for Scotty Lewis
[2022-10-06 11:42] LABS: Troponin(5th) Baseline 6 ng/L (0-10)
[2022-10-06 11:49] LABS: C Reactive Protein 8.4 mg/L (0.0-4.9); NT Pro B Type Natriuretic Pept 202 pg/mL (0-125)
[2022-10-06] MEDS: sodium chloride 0.9% 500 ML IV (12:19)
[2022-10-06] MEDS: fentaNYL 50 mcg/mL INJ 2mL 25 MCG IVP (12:19)
--- NOTE | 2022-10-06 13:11 | ECG_ITS ---
[facility] Test Date: 2022-10-06 Pat Name: Leann Monte Department: Room: Gender: Female Bar Assistant: : 1975 Requested By: Luiz Spencer Order Number: [id number] Nelly MD: Mandy Hanson M.D. Measurements Intervals [place] Rate: 85 P: 61 [place]: 129 QRS: 44 QRSD: 89 T: 71 QT: 364 QTc: 434 Interpretive Statements SINUS RHYTHM ST DEVIATION AND MODERATE T-WAVE ABNORMALITY, CONSIDER ANTEROLATERAL ISCHEMIA [-0.1+ mV T-WAVE IN V3-V6] Compared to ECG 10/06/2022 10:45:34 Sinus tachycardia no longer present T-wave abnormality still present Possible ischemia still present Electronically Signed On 10-06-2022 20:30:12 CDT by Mandy Hanson M.D. [email or web address] [email or web address].[employer]/store/OM/[id number]
[2022-10-06 13:52] LABS: Troponin 5 2HR Delta 0 ABS# (0-10)
== END 2022-10-06 14:03 | disposition home or self-care (01) ==
PROVIDERS: Family Medicine; Emergency Provider Emergency Medicine; PCP Family Medicine
DX: M79.604 Pain in right leg (principal); R07.9 Chest pain, unspecified; Z79.82 Long term (current) use of aspirin; Z79.02 Long term (current) use of antithrombotics/antiplatelets; F17.210 Nicotine dependence, cigarettes, uncomplicated
CPT/HCPCS: 36415; 71045; 80053; 83880; 84484; 85025; 86140; 93005; 93971; 96361; 96374; 99285; J3010; J7040

== ENCOUNTER → 2022-10-13 16:13 | Outpatient (BNVA) | payer BC, SELFPAY | PROVIDERS: PCP Family Medicine; Visit Provider Internal Medicine Pulmonary Disease | DX: R06.00 Dyspnea, unspecified (principal); R07.9 Chest pain, unspecified | CPT/HCPCS: 36415; 82785; 86003 ==

== ENCOUNTER 2022-10-15 18:49 | Emergency (ER) | payer BC, SELFPAY ==
--- NOTE | 2022-10-15 18:51 | XRR_ITS ---
PROCEDURE INFORMATION: Exam: XR Chest Exam date and time: 10/15/2022 7:16 PM Age: 47 years old Clinical indication: Pain; Chest pressure; Additional info: Cp TECHNIQUE: Imaging protocol: Radiologic exam of the chest. Views: 1 view. COMPARISON: CR XR chest 1V portable [id number] 10/06/2022 11:32 AM FINDINGS: Lungs: Bibasilar atelectasis versus minimal infiltrate. Pleural spaces: Unremarkable. No pleural effusion. No pneumothorax. Heart/Mediastinum: Cardiomegaly. Bones/joints: Unremarkable. XR/XR chest 1V portable [id number] IMPRESSION: 1. Cardiomegaly. 2. Bibasilar atelectasis versus minimal infiltrate.
[2022-10-15 19:34] VITALS: BP 190/130; PULSE 97; RESP 18; TEMP 37.1; O2SAT 96; BMI 34.8
--- NOTE | 2022-10-15 20:28 | W.ED.NECK ---
HPI - Neck Pain/Injury General: Chief Complaint: Neck Pain/Injury Stated Complaint: Block Artery in Neck\Chest Pain\Headache Time Seen by Provider: 10/15/22 20:28 History of Present Illness: 47-year-old female comes in today with complaints of headache, neck pain, shoulder pain, and arm pain starting this afternoon. Patient does have a history of recurrent CVA and high blood pressure. Patient is a chronic smoker. Patient has no focal neural deficits. Patient does have a known occlusion of a carotid artery. Patient reports that the pain started in her posterior neck and radiates down her left arm. 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 Hx of nephrolithotomy with removal of calculi Hypertensive crisis Major depressive disorder, recurrent, moderate Missed periods Nicotine dependence, cigarettes, uncomplicated Oral abscess Post-traumatic stress disorder, chronic Psychiatric care Surgical History History of removal of ovarian cyst Hx of cholecystectomy Hx of hernia repair Hx of lithotripsy Family History Other CAD (coronary artery disease) Cancer Hypertension Psychiatric illness Stroke Denies family history of Diabetes Chronic kidney disease (CKD) Social History Smoking and tobacco status: current every day smoker cigarettes Packs smoked per day: 1 Years cigarettes smoked: 25 Alcohol intake: never Caregiver/support person: Yes Lives independently: Yes Household members: significant other Housing: House Current occupational status: employed Female Reproductive History: Para: 0 Spontaneous abortions: Yes (all 6 pregnancies) Physical Exam Const: COMMON NORMALS: alert HENMT: COMMON NORMALS: normocephalic HEAD & SCALP: normocephalic MOUTH: Normal oral and palatal mucosa present Neck/C-Spine: CERVICAL SPINE: Yes Paracervical muscle tenderness Resp: COMMON NORMALS: normal respiratory effort and clear to auscultation bilaterally AUSCULTATION: clear to auscultation bilaterally Cardio: COMMON NORMALS: regular rate and regular rhythm RATE: regular rate RHYTHM: regular rhythm GI: COMMON NORMALS: Soft to palpation and non-tender PALPATION: Yes Soft to palpation Back/Pelvis: COMMON NORMALS: thoracic and lumbar spine normal to inspection Extremity: COMMON NORMALS: normal to inspection Neuro: SENSORIUM/ORIENTATION: Yes alert Skin: COMMON NORMALS: turgor normal GENERAL SKIN EXAM: turgor normal Course Vital Signs: Vital signs: Vital Signs Temperature 98.7 F 10/15/22 19:34 Pulse Rate 86 10/15/22 21:36 Respiratory Rate 18 10/15/22 21:36 Blood Pressure 171/125 10/15/22 21:36 Pulse Oximetry 94 10/15/22 21:36 Oxygen Delivery Me thod Room Air 10/15/22 21:13 MDM - Neck Pain/Injury Medical Decision Making Patient comes in today with complaints of neck pain and pain radiating down her left arm. Pain is reproducible with movement. On exam patient has some muscle tenderness in the posterior neck. Respirations are even lungs are clear to auscultation. No focal neural deficits are noted. Vital signs are normal except for some elevated blood pressure. Differential diagnosis includes not limited to ACS, cervical strain, cervical radiculopathy. CBC and CMP were unremarkable. Troponin was normal range. Chest x-ray was normal. Patient was given a hydrocodone for pain with improvement of symptoms. Pain was reproducible with movement of the neck and shoulder. Suspect musculoskeletal. Recommended Tylenol for pain and further evaluation with primary care. Patient reported understanding agreed to plan. Lab Data 10/15/22 20:25 10/15/22 20:25 Radiology Impressions Chest X-Ray 10/15/22 18:51 IMPRESSION: 1. Cardiomegaly. 2. Bibasilar atelectasis versus minimal infiltrate. Laboratory Results WBC 9.1 10^3/uL (4.0-10.0) 10/15/22 20:25 RBC 3.66 10^6/uL (4.1-5.3) L 10/15/22 20:25 Hgb 12.3 g/dL (11.5-15.3) 10/15/22 20:25 Hct 36.0 % (37.0-47.0) L 10/15/22 20:25 MCV 98.4 fl (81-99) 10/15/22 20:25 MCH 33.6 pg (28.0-34.0) 10/15/22 20: MCHC 34.2 g/dL (30.0-36.0) 10/15/22 20: RDW 15.0 % (12.1-15.1) 10/15/22 20: Plt Count 344 10^3/cmm (130-400) 10/15/22 20: MPV 8.1 fL (7.4-10.4) 10/15/22 20: Neut % (Auto) 56.4 % 10/15/22 20: Lymph % (Auto) 35.0 % 10/15/22 20: [place] % (Auto) 5.4 % 10/15/22: Eos % (Auto) 2.6 % 10/15/22: Baso % (Auto) 0.4 % 10/15/22: Neut # (Auto) 5.10 10^3/uL (1.8-7.7) 10/15/22: Lymph # (Auto) 3.2 10^3/uL (0.8-4.8) 10/15/22 20: [place] # (Auto) 0.5 10^3/uL (0.2-0.9) 10/15/22 20: Eos # (Auto) 0.2 10^3/uL (0.0-0.8) 10/15/22: Baso # (Auto) 0.0 10^3/uL (0.0-0.1) 10/15/22 20: Nucleated RBC % (auto) 0 % 10/15/22: Nucleated RBCs # 0.0 /100WBC 10/15/22 20: PT 13.30 SECONDS (12.1-14.9) 10/15/22 20: INR 0.98 (0.8-1.2) 10/15/22 20:25 Sodium 141 mmol/L (136-145) 10/15/22 20:25 Potassium 3.5 mmol/L (3.5-5.1) 10/15/22 20: Chloride 106 mmol/L (98-107) 10/15/22 20: Carbon Dioxide 24 mmol/L (22-29) 10/15/22 20:25 Anion Gap 14.5 (5-19) 10/15/22 20:25 BUN 9 mg/dL (6-20) 10/15/22 20:25 Creatinine 0.9 mg/dL (0.5-0.9) 10/15/22 20:25 GFR Calculation 67.1 mL/min (90-130) L 10/15/22 20:25 Glucose 71 mg/dL (65-115) 10/15/22 20:25 Calculated Osmolality 289 mOsm/kg (285-295) 10/15/22 20:25 Calcium 8.9 mg/dL (8.5-10.5) 10/15/22 20:25 Total Bilirubin 0.2 mg/dL (0.15-1.2) 10/15/22 20:25 AST 14 U/L (0-32) 10/15/22 20:25 ALT 20 U/L (0-33) 10/15/22 20:25 Alkaline Phosphatase 99 U/L (35-105) 10/15/22 20:25 Troponin T Baseline 6 ng/L (0-10) 10/15/22 20:25 Total Protein 6.7 g/dL (6.6-8.7) 10/15/22 20:25 Albumin 4.0 g/dL (3.5-5.2) 10/15/22 20:25 Globulin 2.7 g/dL (1.3-4.6) 10/15/22 20:25 Discharge Plan Discharge Patient Disposition: Home Clinical Impression: Chest pain Qualifiers: Chest pain type: unspecified Qualified Code(s): R07.9 - Chest pain, unspecified Condition: Stable Prescriptions: No Action nicotine (polacrilex) 4 mg gum 4 mg buccal Q2H Qty: 100 2RF nicotine 21-14-7 mg/24 hr patch, TD daily, sequential See Rx Instructions transdermal .COMPLEX Qty: 56 0RF Rx Instructions: apply 1-21 mg NICOTINE PATCH daily for 28 days; follow with 1-14 mg PATCH daily for 14 days, then 1-7mg PATCH daily for 14 days transdermal albuterol sulfate 90 mcg/actuation aerosol powdr breath activated 2 inh INHALATION Q6H PRN (Reason: shortness of breath or wheezing) Qty: 1 1RF hydroxyzine HCl 50 mg tablet 50 - 100 mg PO BEDTIME@2200 PRN (Reason: Anxiety) Qty: 90 1RF citalopram 40 mg tablet 40 mg PO DAILY Qty: 90 1RF lisinopril 20 mg tablet 20 mg PO DAILY Qty: 90 1RF budesonide-formoterol [Symbicort] 160-4.5 mcg/actuation HFA aerosol inhaler 2 puff inhalation BID Qty: 10.2 3RF ondansetron 4 mg tablet,disintegrating See Rx Instructions .ROUTE .COMPLEX Qty: 14 0RF Dose Instruction: DISSOLVE ONE TABLET BY MOUTH EVERY TWELVE HOURS NEEDED FOR NAUSEA AND VOMITING Rx Instructions: DISSOLVE ONE TABLET BY MOUTH EVERY TWELVE HOURS NEEDED FOR NAUSEA AND VOMITING buspirone 10 mg tablet See Rx Instructions .ROUTE .COMPLEX Qty: 60 3RF Dose Instruction: take 1/2 to 1 tablet BY MOUTH TWICE DAILY NEEDED FOR ANXIETY Rx Instructions: take 1/2 to 1 tablet BY MOUTH TWICE DAILY NEEDED FOR ANXIETY trazodone 100 mg tablet 100 mg PO BEDTIME PRN (Reason: Sleep) Qty: 30 2RF aripiprazole 15 mg tablet 15 mg PO DAILY cyclobenzaprine 10 mg tablet 10 mg PO BEDTIME PRN (Reason: muscle spasm) atorvastatin 40 mg Tablet 40 mg PO BEDTIME 30 Days Qty: 30 2RF aspirin 81 mg Tablet,Delayed Release (Dr/Ec) 81 mg PO DAILY 30 Days Qty: 30 2RF famotidine 20 mg Tablet 20 mg PO BID 30 Days Qty: 60 0RF clopidogrel [Plavix] 75 mg tablet 75 mg PO DAILY 30 Days Qty: 30 0RF hydralazine 10 mg tablet 10 mg PO TID PRN (Reason: blood pressure more than 170) Qty: 270 1RF tramadol 50 mg tablet 50 mg PO Q6H PRN (Reason: pain) Qty: 10 0RF Discharge Orders: Discharge ED (Routine); Ordered 10/15/22 Ordered By: Murphy Marroquin Referrals: Jean Iniguez DO [Primary Care Provider] - Discharge Diet: Usual diet Discharge Activity: Increase activity as tolerated Patient Instructions: Chest Pain (ED), Opioid Safety, Pain Management Activity Restrictions/Additional Instructions: Continue with routine medications. Use acetaminophen as needed to help control pain. Use ice or heat for further pain relief. Follow-up with primary care for further instructions. Return to ED for worsening symptoms or new concerns such as high fever, shortness of breath, or persistent nausea and vomiting. Coding Level of Care Code ED Line Department Supervisor for Scotty Lewis
[2022-10-15 20:39] LABS: Basophils % 0.4 %; Eosinophils # 0.2 10^3/uL (0.0-0.8); Eosinophils % 2.6 %; Hemoglobin 12.3 g/dL (11.5-15.3); Lymphocytes # 3.2 10^3/uL (0.8-4.8); Mean Corpuscular HGB Conc 34.2 g/dL (30.0-36.0); Mean Corpuscular Hemoglobin 33.6 pg (28.0-34.0); Mean Corpuscular Volume 98.4 fl (81-99); Mean Platelet Volume 8.1 fL (7.4-10.4); Monocytes # 0.5 10^3/uL (0.2-0.9); Monocytes % 5.4 %; Neutrophils % 56.4 %; Nucleated Red Blood Cells % 0 %; Platelet Count 344 10^3/cmm (130-400); Red Blood Count 3.66 10^6/uL (4.1-5.3); White Blood Count 9.1 10^3/uL (4.0-10.0)
[2022-10-15] MEDS: HYDROcodone-acetaminophen 7.5-325 mg Tablet 1 TAB PO (20:40)
[2022-10-15 20:42] VITALS: BP 190/127; PULSE 88; RESP 18; O2SAT 95
[2022-10-15 20:46] LABS: INR 0.98 (0.8-1.2)
--- NOTE | 2022-10-15 20:51 | ECG_ITS ---
[facility] Test Date: 2022-10-15 Pat Name: Leann Monte Department: Room: Gender: Female Supply Chain Technician: : 1975 Requested By: Janee Hi Order Number: [id number] Nelly MD: David Tubbs M.D. Measurements Intervals [place] Rate: 89 P: 53 [place]: 131 QRS: 21 QRSD: 90 T: 108 QT: 354 QTc: 433 Interpretive Statements SINUS RHYTHM POSSIBLE LEFT ATRIAL ENLARGEMENT [-0.1mV P-WAVE IN V1/V2] ST DEVIATION AND MODERATE T-WAVE ABNORMALITY, CONSIDER ANTEROLATERAL ISCHEMIA [-0.1+ mV T-WAVE IN V3-V6] Compared to ECG 10/06/2022 13:23:46 No significant changes Electronically Signed On 10-16-2022 9:29:37 CDT by David Tubbs M.D. [email or web address] [email or web address] hospital.[employer]/store/OM/[id number]
[2022-10-15 21:00] LABS: Troponin(5th) Baseline 6 ng/L (0-10)
[2022-10-15 21:02] LABS: Alanine Aminotransferase 20 U/L (0-33); Alkaline Phosphatase 99 U/L (35-105); Anion Gap 14.5 (5-19); Aspartate Amino Transferase 14 U/L (0-32); Blood Urea Nitrogen 9 mg/dL (6-20); Calcium 8.9 mg/dL (8.5-10.5); Carbon Dioxide 24 mmol/L (22-29); Chloride 106 mmol/L (98-107); Globulin 2.7 g/dL (1.3-4.6); Glomerular Filtration Rate 67.1 mL/min (90-130); Glucose 71 mg/dL (65-115); Osmolality Calculated 289 mOsm/kg (285-295); Potassium 3.5 mmol/L (3.5-5.1); Sodium 141 mmol/L (136-145); Total Bilirubin 0.2 mg/dL (0.15-1.2); Total Protein 6.7 g/dL (6.6-8.7)
[2022-10-15 21:12] VITALS: BP 171/134
[2022-10-15] MEDS: cloNIDine 0.1 mg Tablet PO (21:12)
[2022-10-15 21:13] VITALS: BP 171/134; PULSE 85; RESP 16; O2SAT 95
[2022-10-15 21:36] VITALS: BP 171/125; PULSE 86; RESP 18; O2SAT 94
== END 2022-10-15 21:39 | disposition home or self-care (01) ==
PROVIDERS: Emergency Medicine; Emergency Provider Nurse Practitioner Family; PCP Family Medicine
DX: R07.9 Chest pain, unspecified (principal); Z79.82 Long term (current) use of aspirin; Z79.02 Long term (current) use of antithrombotics/antiplatelets; F17.210 Nicotine dependence, cigarettes, uncomplicated
CPT/HCPCS: 36415; 71045; 80053; 84484; 85025; 85610; 93005; 99285

== ENCOUNTER 2022-10-17 11:07 | Emergency (ER) | payer BC, SELFPAY ==
[2022-10-17] VITALS (19 sets, daily range): BP systolic 163–211; BP diastolic 106–139; PULSE 81–104; RESP 13–22; TEMP 37.1; O2SAT 97–100; BMI 34.8
--- NOTE | 2022-10-17 11:54 | XRR_ITS ---
PROCEDURE INFORMATION: Exam: XR Chest Exam date and time: 10/17/2022 12:07 PM Age: 47 years old Clinical indication: Other: Hypertension TECHNIQUE: Imaging protocol: Radiologic exam of the chest. Views: 1 view. COMPARISON: 1. CR (CHEST, ) 10/15/2022 7:16 PM 2. CR XR chest 1V portable [id number] 10/06/2022 11:[address] chest [facility] [id number] 09/29/2022 11:37 PM FINDINGS: Lungs: Known spiculated superior left perihilar nodule better evaluated on comparison CT. No consolidation. Pleural spaces: Unremarkable. No pleural effusion. No pneumothorax. Heart/Mediastinum: Unremarkable. No cardiomegaly. Bones/joints: Unremarkable. XR/XR chest 1V portable [id number] IMPRESSION: No acute findings.
--- NOTE | 2022-10-17 12:00 | W.ED.HA ---
HPI - Headache General: Chief Complaint: Headache Stated Complaint: headache, chest pain, high bp Time Seen by Provider: 10/17/22 11:36 Source: patient and family Mode of arrival: ambulatory Limitations: no limitations History of Present Illness: This patient with a known history of labile hypertension and apparent recent hospitalization for stroke comes in today because she has had elevation of her blood pressure associated global throbbing pounding headache and tingling in both hands and feet. She states she has taken her prescribed medication and in fact took an extra 20 mg lisinopril this morning in an attempt to take control of her blood pressure. She denies any new or focal weakness or other new symptoms at this time. She denies any chest pain or shortness of breath. She admits that she still is smoking tobacco but is trying to quit. She is taking all her other usual medications as prescribed. She apparently has a vascular surgery follow-up as well as a pulmonology follow-up scheduled that she has not completed yet. MD elicited complaint: headache Onset description: gradually Location: diffuse Severity: similar to previous episodes Quality & Timing: throbbing Associated symptoms: Deny chest pain, fever(s), nausea, rash or vomiting Review of Systems Const: Denies: fever(s) or chills Eyes: Denies: change in vision or blurry vision ENMT: Denies: throat pain or odynophagia Card: Denies: chest pain, palpitations, irregular heart rhythm or edema Resp: Denies: dyspnea, productive cough or non-productive cough GI: Reports: hematemesis; Denies: abdominal pain, nausea, vomiting or diarrhea : Denies: flank pain, difficulty voiding, dysuria or urinary frequency Musc: Denies: neck pain, back pain, extremity pain or extremity swelling Skin/Breast: Denies: rash Neuro: Reports: headache(s) and numbness in extremities Psych: Reports: anxiety PFSH ED PFSH: Medical History (Updated 10/17/22 @ 15:39 by Bruce Hernandez DO) Asthma Generalized anxiety disorder 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 Hx of nephrolithotomy with removal of calculi Hypertensive crisis Major depressive disorder, recurrent, moderate Missed periods Nicotine dependence, cigarettes, uncomplicated Oral abscess Post-traumatic stress disorder, chronic Psychiatric care Surgical History History of removal of ovarian cyst Hx of cholecystectomy Hx of hernia repair Hx of lithotripsy Family History Other CAD (coronary artery disease) Cancer Hypertension Psychiatric illness Stroke Denies family history of Diabetes Chronic kidney disease (CKD) Social History Smoking and tobacco status: current every day smoker cigarettes Packs smoked per day: 1 Years cigarettes smoked: 25 Alcohol intake: never Caregiver/support person: Yes Lives independently: Yes Household members: significant other Housing: House Current occupational status: employed Female Reproductive History: Para: 0 Spontaneous abortions: Yes (all 6 pregnancies) Physical Exam Narrative: EXAM NARRATIVE: Somewhat anxious appearing but able to answer questions in a goal-directed fashion. Speech is fluent. Const: COMMON NORMALS: no acute distress, average body habitus, patient oriented x3 and alert GENERAL APPEARANCE: cooperative NUTRITIONAL APPEARANCE: overweight HENMT: COMMON NORMALS: normocephalic, atraumatic, moist oral mucous membranes and oropharynx normal HEAD & SCALP: normocephalic and atraumatic FACE & SINUS: face symmetric Eye: COMMON NORMALS: Equal, round and reactive pupils present, EOMs intact bilaterally, conjunctivae normal and no scleral icterus CONJUNCTIVA: Yes conjunctivae normal PUPIL: Yes Equal, round and reactive pupils present Neck/C-Spine: COMMON NORMALS: full ROM, supple, no JVD and Thyroid normal THYROID: Thyroid normal CAROTIDS: Yes bruit positive right Chest: COMMONS NORMALS: normal inspection of the chest Resp: COMMON NORMALS: normal respiratory effort, No retractions, No use of accessory muscles and clear to auscultation bilaterally AUSCULTATION: clear to auscultation bilaterally Cardio: COMMON NORMALS: no JVD, regular rate, regular rhythm and Peripheral pulses 2+ throughout RATE: regular rate RHYTHM: regular rhythm PERIPHERAL PULSES: Peripheral pulses 2+ throughout GI: COMMON NORMALS: Normal to inspection, nondistended, normoactive bowel sounds present, Soft to palpation and non-tender PALPATION: Yes Soft to palpation : COMMON NORMALS: Yes no CVA tenderness BLADDER/KIDNEY EXAM: Yes no CVA tenderness Back/Pelvis: COMMON NORMALS: no CVA tenderness, thoracic and lumbar spine normal to inspection, thoraco-lumbar ROM normal and straight leg raise negative bilaterally Extremity: COMMON NORMALS: normal to inspection, full ROM, capillary refill normal and no calf tenderness Neuro: COMMON NORMALS: patient oriented x3, moves all extremities, no focal motor deficits and no sensory deficits noted SENSORIUM/ORIENTATION: Yes alert CRANIAL NERVES: Yes CN normal except as noted COORDINATION/BALANCE: xwknht-yj-cnxz test normal and fzvr-yk-tpec test normal SPEECH: speech normal MOTOR EXAM: 5/5 motor strength present throughout COORDINATION: ewmhfa-ul-epvv test normal and roms-is-guli test normal Skin: COMMON NORMALS: no rashes or lesions noted, no wounds and turgor normal GENERAL SKIN EXAM: no rashes or lesions noted and turgor normal Course Reevaluation(s): Reevaluation #1: After labetalol her pressures were coming down nicely but now they have crept back up into the 200/130+ range. I think at this point we will have to put her on a nicardipine infusion and plan on admission for controlling blood pressure. Time: 14:41 Reevaluation #2: Blood pressure is responded to nicardipine infusion. She is less symptomatic. We will continue infusion and placed in observation in the CSU until pressures are under better control and then patient will changes in her regimen can be completed under controlled environment. Time: 15:38 Consultations: Consultation #1: Discussed with Dr. Shane who will place her in the CSU for continued care. Time: 15:38 Vital Signs: Vital signs: Vital Signs Temperature 98.8 F 10/17/22 11:31 Pulse Rate 84 10/17/22 15:15 Respiratory Rate 15 10/17/22 15:15 Blood Pressure 193/118 10/17/22 15:15 Pulse Oximetry 97 10/17/22 14:45 MDM - Headache Medical Decision Making This patient presented to our emergency department with headache as well as subjective symptoms of anxiety with paresthesias in hands and feet. She did recently been admitted to this facility for stroke and had a work-up of that condition. She had a history of significant hypertension in the past had been on multiple medications which had been weaned down during her hospitalization. She states that and admits to continued tobacco use. She denies any street drug use. Her clinical examination did not reveal any focal findings. She had a normal cardiovascular examination and no evidence of peripheral edema and her neurologic examination was intact and symmetrical. Work-up ensued to include screening laboratories electrocardiogram as well as initial dose of labetalol to control her significant hypertension. Initially her blood pressures responded to labetalol however began creeping up into the 04/29/1929 systolic over 04/07/1939 diastolic range and was felt with her endorgan symptoms and her history of recent CVA that we would proceed more aggressively with calcium channel oleg infusion and nicardipine infusion was begun which had a positive impact on her blood pressures which trended downward in the emergency department. Hospitalist service was consulted for admission to observation to continue to control blood pressure and then adjust her regimen as indicated. Medical Records I reviewed the patient's medical records. Lab Data I reviewed the patient's lab results. 10/17/22 12:11 10/17/22 12:11 Radiology Impressions Chest X-Ray 10/17/22 11:54 IMPRESSION: No acute findings. Laboratory Results WBC 8.9 10^3/uL (4.0-10.0) 10/17/22 12:11 RBC 3.62 10^6/uL (4.1-5.3) L 10/17/22 12:11 Hgb 11.9 g/dL (11.5-15.3) 10/17/22 12:11 Hct 35.0 % (37.0-47.0) L 10/17/22 12:11 MCV 96.7 fl (81-99) 10/17/22 12:11 MCH 32.9 pg (28.0-34.0) 10/17/22 12:11 MCHC 34.0 g/dL (30.0-36.0) 10/17/22 12:11 RDW 14.8 % (12.1-15.1) 10/17/22 12:11 Plt Count 326 10^3/cmm (130-400) 10/17/22 12:11 MPV 8.2 fL (7.4-10.4) 10/17/22 12:11 Neut % (Auto) 66.0 % 10/17/22 12:11 Lymph % (Auto) 26.0 % 10/17/22 12:11 [place] % (Auto) 5.1 % 10/17/22 12:11 Eos % (Auto) 2.4 % 10/17/22 12:11 Baso % (Auto) 0.3 % 10/17/22 12:11 Neut # (Auto) 5.88 10^3/uL (1.8-7.7) 10/17/22 12:11 Lymph # (Auto) 2.3 10^3/uL (0.8-4.8) 10/17/22 12:11 [place] # (Auto) 0.5 10^3/uL (0.2-0.9) 10/17/22 12:11 Eos # (Auto) 0.2 10^3/uL (0.0-0.8) 10/17/22 12:11 Baso # (Auto) 0.0 10^3/uL (0.0-0.1) 10/17/22 12:11 Nucleated RBC % (auto) 0 % 10/17/22 12:11 Nucleated RBCs # 0.0 /100WBC 10/17/22 12:11 Sodium 144 mmol/L (136-145) 10/17/22 12:11 Potassium 3.7 mmol/L (3.5-5.1) 10/17/22 12:11 Chloride 109 mmol/L (98-107) H 10/17/22 12:11 Carbon Dioxide 24 mmol/L (22-29) 10/17/22 12:11 Anion Gap 14.7 (5-19) 10/17/22 12:11 BUN 9 mg/dL (6-20) 10/17/22 12:11 Creatinine 0.8 mg/dL (0.5-0.9) 10/17/22 12:11 GFR Calculation 76.9 mL/min (90-130) L 10/17/22 12:11 Glucose 87 mg/dL (65-115) 10/17/22 12:11 Calculated Osmolality 296 mOsm/kg (285-295) H 10/17/22 12:11 Calcium 8.6 mg/dL (8.5-10.5) 10/17/22 12:11 EKG Data EKG 1: I personally reviewed and interpreted this EKG as follows: Interpretation: Contemporaneous review of EKGs reveals ventricular rate of 100 bpm. SC interval, QRS duration, corrected QT interval are normal. He has a slight leftward axis. She has ST-T wave changes noted V3 through V6 in the precordium which have been present on prior tracings this past summer. No acute changes from that time. Discharge Plan Discharge Patient Disposition: Placed in Observation Clinical Impression: Labile hypertension, Nicotine dependence, cigarettes, uncomplicated Coding Level of Care Code ED Equipment Installation Professional for Scotty Lewis
--- NOTE | 2022-10-17 12:17 | ECG_ITS ---
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 Measurements Intervals [place] Rate: 87 P: 48 ND: 129 QRS: 23 QRSD: 88 T: 97 QT: 351 QTc: 425 Interpretive Statements SINUS RHYTHM ST DEVIATION AND MODERATE T-WAVE ABNORMALITY, CONSIDER ANTEROLATERAL ISCHEMIA [-0.1+ mV T-WAVE IN V3-V6] Compared to ECG 10/15/2022 19:42:47 No significant changes Electronically Signed On 10-18-2022 11:26:51 CDT by Carlos A Nuñez M.D. [id number]
[2022-10-17 12:20] LABS: Basophils % 0.3 %; Eosinophils # 0.2 10^3/uL (0.0-0.8); Eosinophils % 2.4 %; Hemoglobin 11.9 g/dL (11.5-15.3); Lymphocytes # 2.3 10^3/uL (0.8-4.8); Mean Corpuscular Hemoglobin 32.9 pg (28.0-34.0); Mean Corpuscular Volume 96.7 fl (81-99); Mean Platelet Volume 8.2 fL (7.4-10.4); Monocytes # 0.5 10^3/uL (0.2-0.9); Monocytes % 5.1 %; Neutrophils # 5.88 10^3/uL (1.8-7.7); Nucleated Red Blood Cells % 0 %; Platelet Count 326 10^3/cmm (130-400); Red Blood Count 3.62 10^6/uL (4.1-5.3); Red Cell Distribution Width 14.8 % (12.1-15.1); White Blood Count 8.9 10^3/uL (4.0-10.0)
[2022-10-17 12:37] LABS: Anion Gap 14.7 (5-19); Blood Urea Nitrogen 9 mg/dL (6-20); Calcium 8.6 mg/dL (8.5-10.5); Carbon Dioxide 24 mmol/L (22-29); Chloride 109 mmol/L (98-107); Glomerular Filtration Rate 76.9 mL/min (90-130); Glucose 87 mg/dL (65-115); Osmolality Calculated 296 mOsm/kg (285-295); Potassium 3.7 mmol/L (3.5-5.1); Sodium 144 mmol/L (136-145)
[2022-10-17] MEDS: labetalol 5 mg/mL SDV 20mL 10 MG IVP (12:45)
[2022-10-17] MEDS: nicardipine 20 MG/200 ML PREMIX 100 MG IV (15:18)
--- NOTE | 2022-10-17 15:47 | ECG_ITS ---
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 Measurements Intervals [place] Rate: 100 P: 55 MT: 133 QRS: 44 QRSD: 90 T: 117 QT: 350 QTc: 451 Interpretive Statements SINUS TACHYCARDIA ST DEVIATION AND MODERATE T-WAVE ABNORMALITY, CONSIDER ANTEROLATERAL ISCHEMIA [-0.1+ mV T-WAVE IN V3-V6] Compared to ECG 10/17/2022 12:17:31 Sinus rhythm no longer present T-wave abnormality still present Possible ischemia still present Electronically Signed On 10-18-2022 11:35:35 CDT by Carlos A Nuñez M.D. [id number]
--- NOTE | 2022-10-17 16:42 | CTR_ITS ---
PROCEDURE INFORMATION: Exam: CT Head Without Contrast Exam date and time: 10/17/2022 4:56 PM Age: 47 years old Clinical indication: Pain; Headache not specified; Additional info: Headache, HTN urgency TECHNIQUE: Imaging protocol: Computed tomography of the head without contrast. Radiation optimization: All CT scans at this facility use at least one of these dose optimization techniques: automated exposure control; mA and/or kV adjustment per patient size (includes targeted exams where dose is matched to clinical indication); or iterative reconstruction. REPORTING DATA: Count of CT and Cardiac NM exams in prior 12 months: This patient has received 3 known CTs and 0 known cardiac nuclear medicine studies in the 12 months prior to the current study. COMPARISON: MR head wo/w con [id number] 09/30/2022 11:20 AM RADIATION DOSE METRICS: Total DLP (mGy-cm): 1091.98 FINDINGS: Brain: Normal. No hemorrhage. Unremarkable white matter. No mass effect. Cerebral ventricles: No ventriculomegaly. Paranasal sinuses: Visualized sinuses are unremarkable. No fluid levels. Mastoid air cells: Visualized mastoid air cells are well aerated. Bones/joints: Unremarkable. No acute fracture. Soft tissues: Unremarkable. CT/CT head wo con* [id number] IMPRESSION: No acute intracranial abnormality.
--- NOTE | 2022-10-17 16:46 | PM.HP ---
Providers/Chief Complaint Admitting Physician: Rex Duarte MD Primary Care Provider: Jean Iniguez DO Chief Complaint: headache, chest pain, high bp History of Present Illness Leann Monte is a 47 year old female Medications/Allergies Home Medications Medication Instructions Recorded Confirmed Last Taken Type albuterol sulfate 90 mcg/actuation 2 inh inhalation Q6H PRN shortness 08/18/21 10/17/22 04/08/22 Rx breath activated powder inhaler of breath or wheezing #1 ea nicotine (polacrilex) 4 mg gum 4 mg buccal Q2H #100 ea 08/18/21 10/17/22 Unknown Rx nicotine See Rx Instructions transdermal 08/18/21 10/17/22 Unknown Rx 21mg/24hr-14mg/24hr-7mg/24hr daily .COMPLEX #56 patches transderm patches,sequentl ondansetron 4 mg disintegrating See Rx Instructions .Route 01/06/22 10/17/22 1 Week Ago Rx tablet .COMPLEX #14 tabs ~04/01/22 hydroxyzine HCl 50 mg tablet 50 - 100 mg PO BEDTIME@2200 PRN 01/15/22 10/17/22 10/16/22 Rx Anxiety #90 tabs citalopram 40 mg tablet 40 mg PO DAILY #90 tabs 05/27/22 10/17/22 10/17/22 Rx buspirone 10 mg tablet See Rx Instructions .Route 08/17/22 10/17/22 10/17/22 Rx .COMPLEX #60 tabs lisinopril 20 mg tablet 20 mg PO DAILY #90 tabs 08/25/22 10/17/22 10/17/22 Rx trazodone 100 mg tablet 100 mg PO BEDTIME PRN Sleep #30 09/16/22 10/17/22 10/05/22 Rx tabs aripiprazole 15 mg tablet 15 mg PO DAILY 09/30/22 10/17/22 10/17/22 History cyclobenzaprine 10 mg tablet 10 mg PO BEDTIME PRN muscle spasm 09/30/22 10/17/22 10/05/22 History aspirin 81 mg tablet,delayed 81 mg PO DAILY 30 days #30 tabs 10/01/22 10/17/22 10/17/22 Rx release atorvastatin 40 mg tablet 40 mg PO BEDTIME 30 days #30 tabs 10/01/22 10/17/22 10/17/22 Rx clopidogrel 75 mg tablet (Plavix) 75 mg PO DAILY 30 days #30 tabs 10/01/22 10/17/22 10/17/22 Rx famotidine 20 mg tablet 20 mg PO BID 30 days #60 tabs 10/01/22 10/17/22 10/17/22 Rx hydralazine 10 mg tablet 10 mg PO TID PRN blood pressure 10/01/22 10/17/22 Unknown Rx more than 170 #270 tabs tramadol 50 mg tablet 50 mg PO Q6H PRN pain #10 tabs 10/06/22 10/17/22 Unknown Rx budesonide-formoterol HFA 160 2 puff inhalation BID #10.2 grams 10/13/22 10/17/22 10/17/22 Rx mcg-4.5 mcg/actuation aerosol inhaler (Symbicort) Allergies Allergy/AdvReac Type Severity Reaction Status Date / Time Penicillins Allergy Severe Anaphylaxis Verified 10/13/22 14:32 morphine Allergy Intermediate ADR-Vomitin Verified 10/13/22 14:32 g naproxen Allergy Intermediate ADR-Vomitin Verified 10/13/22 14:32 g lorazepam [From Ativan] AdvReac Severe Becomes Verified 10/13/22 14:32 aggressive. 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 Hx of nephrolithotomy with removal of calculi Hypertensive crisis Major depressive disorder, recurrent, moderate Missed periods Nicotine dependence, cigarettes, uncomplicated Oral abscess Post-traumatic stress disorder, chronic Psychiatric care Surgical History History of removal of ovarian cyst Hx of cholecystectomy Hx of hernia repair Hx of lithotripsy Family History Other CAD (coronary artery disease) Cancer Hypertension Psychiatric illness Stroke Denies family history of Diabetes Chronic kidney disease (CKD) Social History Smoking and tobacco status: current every day smoker cigarettes Packs smoked per day: 1 Years cigarettes smoked: 25 Alcohol intake: never Caregiver/support person: Yes Lives independently: Yes Household members: significant other Housing: House Current occupational status: employed Female Reproductive History: Para: 0 Spontaneous abortions: Yes (all 6 pregnancies) Vitals/I&O/Wt Last Vital Signs Temp 98.8 F 10/17/22 11:31 Pulse 89 10/17/22 16:09 Resp 16 10/17/22 16:09 BP 163/106 10/17/22 16:09 Pulse Ox 98 10/17/22 16:09 O2 Del Method Room Air 10/17/22 16:09 Weight last 48 hrs Weight 92.079 kg Data 10/17/22 12:11 10/17/22 12:11 Coding Level of Care Code Acute Code for Chg Fwd Diagnoses
--- NOTE | 2022-10-17 17:08 | P.CONIM_ITS ---
Providers/Reason For Consult Consulting Physician/Specialty*: Dr. Duarte/internal medicine Reason for Consult*: Admission for hypertensive urgency Requesting Physician: ER Attending Physician: Rex Duarte MD Primary Care Provider: Jean Iniguez DO History of Present Illness History of Present Illness Leann Monte is a 47 year old female with past medical history of ?anxiety, major depressive disorder, uncontrolled hypertension on multiple medications, PTSD who was recently discharged on October 01 after she was found to have an acute lacunar infarction along with lung mass highly suspicious of malignancy presents to the ER today because of global throbbing pounding headache and tingling in both her arms and feet without any weakness in her arms, chest pain, nausea, vomiting, difficulty breathing or loss of consciousness. At home she was found to have elevated blood pressures for which she had even taken an extra dose of the lisinopril. In the ER she was found to have systolic blood pressure more than 220 and she was started on nicardipine drip. Hospitalist service was consulted for further evaluation and management. Patient was asked to be given 10 mg of oral amlodipine and hydralazine with titration of nicardipine drip keeping systolic blood pressure of less than 160 and was being admitted to [facility] for further management and CT head was ordered. While patient was being admitted she decided to leave AMA. Patient was counseled in detail by ER physician and ER nurses to stay at hospital for further continued care and closer blood pressure monitoring. Risks of leaving AMA were discussed in detail with the patient and she verbalized understanding but she still decided to leave AMA. Review of Systems General: Reports: 10 or more systems reviewed and unremarkable except in HPI and below Const: Denies: fever(s), chills, body aches, change in appetite, change in weight, malaise, night sweats, diaphoresis, change in sleep pattern, daytime sleepiness or snoring Eyes: Denies: change in vision, blurry vision, photophobia, eye discomfort or eye discharge ENMT: Denies: throat pain, enlarged tonsils, hoarseness, mouth pain, oral sores, dry mouth, tinnitus, nasal congestion or post nasal drip Card: Denies: chest pain, palpitations, irregular heart rhythm, edema, swelling of feet/ankles, lightheadedness, syncope, pre-syncope, dyspnea on exertion, orthopnea, leg pain with exertion or acrocyanosis Resp: Denies: dyspnea, productive cough, non-productive cough, wheezing, stridor, pain on inspiration, change in phlegm color, hemoptysis or chest congestion GI: Denies: abdominal pain, nausea, vomiting, hematemesis, coffee ground emesis, dysphagia, heartburn, diarrhea, constipation, bloating, GI cramping, change in bowel habits, pain on defecation, hematochezia or melena : Denies: flank pain, dysuria, urinary frequency, urinary urgency, urinary hesitancy, nocturia or hematuria Musc: Denies: neck pain, back pain, extremity pain, joint pain, joint swelling, joint redness, joint stiffness or limited range of motion Neuro: Denies: headache(s), numbness in extremities, weakness in extremities, sensory changes, lack of coordination, difficulty walking, frequent falls, dizziness, vertigo, confusion, Slurred speech present, difficulty communicating thoughts or seizure-like activity Psych: Denies: anxiety, depression, mood swings, panic attacks, hopelessness or irritability Endo: Denies: polyuria, polydipsia, tired all the time, cold intolerance, excessive sweating, flushing or heat intolerance Simon/Lymph: Denies: easy bruising or easy bleeding All/Imm: Denies: tongue swelling, facial swelling or acute wheezing Medications/Allergies Home Medications Medication Instructions Recorded Confirmed Last Taken Type albuterol sulfate 90 mcg/actuation 2 inh inhalation Q6H PRN shortness 08/18/21 10/17/22 04/08/22 Rx breath activated powder inhaler of breath or wheezing #1 ea nicotine (polacrilex) 4 mg gum 4 mg buccal Q2H #100 ea 08/18/21 10/17/22 Unknown Rx nicotine See Rx Instructions transdermal 08/18/21 10/17/22 Unknown Rx 21mg/24hr-14mg/24hr-7mg/24hr daily .COMPLEX #56 patches transderm patches,sequentl ondansetron 4 mg disintegrating See Rx Instructions .Route 01/06/22 10/17/22 1 Week Ago Rx tablet .COMPLEX #14 tabs ~04/01/22 hydroxyzine HCl 50 mg tablet 50 - 100 mg PO BEDTIME@2200 PRN 01/15/22 10/17/22 10/16/22 Rx Anxiety #90 tabs citalopram 40 mg tablet 40 mg PO DAILY #90 tabs 05/27/22 10/17/22 10/17/22 Rx buspirone 10 mg tablet See Rx Instructions .Route 08/17/22 10/17/22 10/17/22 Rx .COMPLEX #60 tabs trazodone 100 mg tablet 100 mg PO BEDTIME PRN Sleep #30 09/16/22 10/17/22 10/05/22 Rx tabs aripiprazole 15 mg tablet 15 mg PO DAILY 09/30/22 10/17/22 10/17/22 History cyclobenzaprine 10 mg tablet 10 mg PO BEDTIME PRN muscle spasm 09/30/22 10/17/22 10/05/22 History aspirin 81 mg tablet,delayed 81 mg PO DAILY 30 days #30 tabs 10/01/22 10/17/22 10/17/22 Rx release atorvastatin 40 mg tablet 40 mg PO BEDTIME 30 days #30 tabs 10/01/22 10/17/22 10/17/22 Rx clopidogrel 75 mg tablet (Plavix) 75 mg PO DAILY 30 days #30 tabs 10/01/22 10/17/22 10/17/22 Rx famotidine 20 mg tablet 20 mg PO BID 30 days #60 tabs 10/01/22 10/17/22 10/17/22 Rx hydralazine 10 mg tablet 10 mg PO TID PRN blood pressure 10/01/22 10/17/22 Unknown Rx more than 170 #270 tabs tramadol 50 mg tablet 50 mg PO Q6H PRN pain #10 tabs 10/06/22 10/17/22 Unknown Rx budesonide-formoterol HFA 160 2 puff inhalation BID #10.2 grams 10/13/22 10/17/22 10/17/22 Rx mcg-4.5 mcg/actuation aerosol inhaler (Symbicort) amlodipine 10 mg tablet 10 mg PO DAILY #30 tabs 10/17/22 Unknown Rx hydralazine 25 mg tablet 25 mg PO TID #90 tabs 10/17/22 Unknown Rx labetalol 100 mg tablet 100 mg PO BID #30 tabs 10/17/22 Unknown Rx lisinopril 20 mg tablet 40 mg PO DAILY #90 tabs 08/02/2710/17/22 10/17/22 Rx Allergies Allergy/AdvReac Type Severity Reaction Status Date / Time Penicillins Allergy Severe Anaphylaxis Verified 10/13/22 14:32 morphine Allergy Intermediate ADR-Vomitin Verified 10/13/22 14:32 g naproxen Allergy Intermediate ADR-Vomitin Verified 10/13/22 14:32 g lorazepam [From Ativan] AdvReac Severe Becomes Verified 10/13/22 14:32 aggressive. EGGS AdvReac Severe N & V, Uncoded 10/13/22 14:32 Stomach pain, Throat swells shut flu shot AdvReac Severe N & V, Uncoded 10/13/22 14:32 Stomach pain, Throat swells shut nuts AdvReac Severe Vomiting & Uncoded 10/13/22 14:32 throat swells Current Medications Generic Name Dose Route Start Last Admin Trade Name Freq PRN Reason Stop Dose Admin Nicardipine/Sodium Chloride 20 mg in 200 mls @ 0 mls/hr 10/17/22 14:45 10/17/22 15:18 Cardene IV 10 mg/hr .Q0M JAY JAY 100 mls/hr Administration Protocol Per Protocol PFSH Acute PFSH: Medical History (Updated 10/17/22 @ 17:13 by Rex Duarte MD) Asthma Generalized anxiety disorder 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 Hx of nephrolithotomy with removal of calculi Hypertensive crisis Major depressive disorder, recurrent, moderate Missed periods Nicotine dependence, cigarettes, uncomplicated Oral abscess Post-traumatic stress disorder, chronic Psychiatric care Surgical History History of removal of ovarian cyst Hx of cholecystectomy Hx of hernia repair Hx of lithotripsy Family History Other CAD (coronary artery disease) Cancer Hypertension Psychiatric illness Stroke Denies family history of Diabetes Chronic kidney disease (CKD) Social History Smoking and tobacco status: current every day smoker cigarettes Packs smoked per day: 1 Years cigarettes smoked: 25 Alcohol intake: never Caregiver/support person: Yes Lives independently: Yes Household members: significant other Housing: House Current occupational status: employed Female Reproductive History: Para: 0 Spontaneous abortions: Yes (all 6 pregnancies) Vitals/I&O/Wt Last Vital Signs Temp 98.8 F 10/17/22 11:31 Pulse 89 10/17/22 16:09 Resp 16 10/17/22 16:09 BP 163/106 10/17/22 16:09 Pulse Ox 98 10/17/22 16:09 O2 Del Method Room Air 10/17/22 16:09 Weight last 48 hrs Weight 92.079 kg Physical Exam Narrative: General: No acute distress, AO x3 HEENT: PERRLA, pupils bilaterally equal and reactive Chest: Normal vesicular breath sounds, rhonchi and coarse crackles in right upper lobe, equal good air entry bilaterally CVS: S1-S2 regular, no murmurs, no tachycardia, no gallops, no rubs Abdomen: Soft, nontender, no organomegaly, bowel sounds present Neuro: No focal deficits, no facial deformity, AO x3, power 5/5 in all limbs Data 10/17/22 12:11 10/17/22 12:11 A&P Assessment and plan (1) Headache: (2) Hypertensive urgency: Plan 47-year-old female with past medical history of stroke, labile hypertension, recent diagnosis of lung mass presented with throbbing headache and was found to have hypertension urgency with systolic blood pressure more than 220. She was started on nicardipine drip and was being admitted to [facility] for further monitoring the patient decided to leave AGAINST MEDICAL ADVICE even after multiple counseling done by the ER physician and ER nurses. Plan: Patient was given a tablet of 25 mg of hydralazine and 10 mg of amlodipine. 10 mg of amlodipine daily and hydralazine 25 mg 3 times a day was sent in to patient's pharmacy. Dose of lisinopril has been increased to 40 mg daily. Patient has been counseled to check her blood pressures daily at home and maintain a blood pressure diary likely for a follow-up with a primary care provider in 10 days for further adjustment of antihypertensives. Danger signs were discussed detail with the patient. Consult Attestations Medical Necessity Statement: Patient requires hospitalization for close blood pressure monitoring in setting of hypertensive urgency with throbbing headache in a patient with baseline hi story of recent lacunar stroke, labile hypertension and a lung mass with high suspicion of malignancy Coding Level of Care Code Critical Care >/= 30 minutes Critical care time (in minutes): 50 The high probability of a clinically significant, sudden or life threatening deterioration, as referenced in this documentation, required my full and direct attention, intervention and personal management. The critical care time shown is in addition to time spent performing any reported separately billable procedures and includes the following: [x] Data and vital sign review and interpretation [x ] Patient assessment, examination and intervention [x] Medication orders and management [x] Patient/Family updates as able [x] Care Coordination and Docum entation. Diagnoses Headache R51.9 Hypertensive urgency I16.0
[2022-10-17] MEDS: amlodipine 10 mg Tablet PO (17:17)
[2022-10-17] MEDS: hyDRALAzine 25 mg Tablet PO (17:17)
== END 2022-10-17 17:30 | disposition left against medical advice (07) ==
LOC: ER 15:40 → ICU 17:07 → ER 17:12
PROVIDERS: Emergency Provider Emergency Medicine; PCP Family Medicine; Visit Provider Student in an Organized Health Care Education/Training Program
DX: I10 Essential (primary) hypertension (principal); F17.210 Nicotine dependence, cigarettes, uncomplicated; Z53.21 Procedure and treatment not carried out due to patient leaving prior to being seen by health care provider
CPT/HCPCS: 70450; 71045; 80048; 84443; 85025; 93005; 96365; 96366; 96375; 99285; J3490

== ENCOUNTER 2022-10-31 09:00 | Outpatient (CLI) | payer BC, SELFPAY ==
--- NOTE | 2022-10-31 09:00 | PETR_ITS ---
PROCEDURE INFORMATION: Exam: PET/CT Skull Base to Mid-thigh Exam date and time: 10/31/2022 9:41 AM Age: 47 years old Clinical indication: Abnormal findings; Lung cancer screening LABS AND CLINICAL REPORTS: Glucose: 78 mg/dl Treatment strategy for malignancy (PET staging): Initial Staging (PI) TECHNIQUE: Imaging protocol: Following at least four-hour fasting and following the injection of radiopharmaceutical, low dose CT images were obtained. Then, PET images were obtained. Attenuation corrected images were constructed using the CT scan. Fused images of PET and CT were reviewed. The standardized uptake values (SUV) reported below are maximum values within a region of interest, expressed in gm/ml. Exam includes orbital meatal line to mid-thigh. Radiopharmaceutical: 13.48 mCi F-18 FDG (Fluorodeoxyglucose), IV. Time of imaging post radiopharmaceutical administration: 1 hour Injection site: site COMPARISON: CT chest wo con [id number] 09/29/2022 11:37 PM FINDINGS: Brain: Visualized brain has normal physiologic uptake. Pharynx: No abnormal uptake. Larynx: No abnormal uptake. Thyroid: An 8 mm nodule in the right thyroid lobe is mildly FDG avid with an max SUV of 5.2 (image 27). Lungs, pleura and trachea: In the left upper lobe, at the posterior medial aspect of the apicoposterior segment, a spiculated pulmonary nodule is 2.5 x 2.5 x 2.0 cm (transverse x ant-post x craniocaudal). Its max SUV is 12.8, which is confirms that it is malignant. The tumor extends directly into the left pulmonary hilum. The lungs are otherwise clear. The right lung is clear.The adrenals are normal. In the right middle lobe, at the medial segment, discoid atelectasis or scarring is not FDG avid. Its SUV max is only 1.0 (image 58). Heart: Normal physiologic uptake. Mediastinal space: No abnormal uptake. Liver: No abnormal uptake. Gallbladder and bile ducts: Post cholecystectomy. Pancreas: No abnormal uptake. Spleen: The spleen is unremarkable. Adrenal glands: The adrenals are normal. A right adrenal nodule is 0.9 x 1.2 x 1.6 cm. It is not FDG avid. Its max SUV is 2.7. Its density of 10 HU is consistent with a benign adrenal adenoma. Kidneys and ureters: Normal physiologic uptake. Stomach and bowel: FDG avidity at the ileocecal valve and cecum is probably benign/physiologic because there is no corresponding CT abnormality. (image 122).Small bowel loops are normal in caliber. Appendix: The appendix is normal in caliber without surrounding inflammation. Reproductive: The uterus is normal and anteverted. Vasculature: Mild calcific atherosclerosis of the thoracic aorta. There is no aneurysm. Lymph nodes: A left hilar lymph node has a short axis of 1.3 cm and an SUV max of 11.3 (image 45). A left lower paratracheal lymph node has a short axis of 9 mm and a max SUV of 5.3 (image 42). A nonenlarged subaortic lymph node has an SUV max of 3.3 (image 43). It is not FDG avid. A nonenlarged para-aortic lymph node has a short axis of 7 mm and an SUV max of 3.3 (image 40). It is not FDG avid. Bones/joints: A probable bone island in the T3 vertebral body is not FDG avid. Its max SUV is /2.4. Soft tissues: No metabolically active areas. [facility] [id number] IMPRESSION: 1. In the left upper lobe, at the apicoposterior segment, a malignant pulmonary nodule is 2.5 x 2.5 x 2.0 cm. Its max SUV is 12.8, which is confirms that it is malignant. It extends directly into the left pulmonary hilum. 2. Hilar and left lower paratracheal lymph adenopathy. 3. An 8 mm nodule in the right thyroid lobe is mildly FDG avid with an max SUV of 5.2. Nonemergent thyroid ultrasound is recommended. 4. Right adrenal adenoma.
== END 2022-10-31 09:01 | disposition home or self-care (01) ==
LOC: RAD 11-02 05:42
PROVIDERS: PCP Family Medicine; Visit Provider Internal Medicine Pulmonary Disease
DX: C34.12 Malignant neoplasm of upper lobe, left bronchus or lung (principal); R91.8 Other nonspecific abnormal finding of lung field; R59.0 Localized enlarged lymph nodes; E04.1 Nontoxic single thyroid nodule; D35.01 Benign neoplasm of right adrenal gland
CPT/HCPCS: 78815; A9552

== ENCOUNTER 2022-11-10 08:52 | Outpatient (CLI) | payer BC, SELFPAY ==
[2022-11-10 09:14] VITALS: PULSE 89; RESP 18; O2SAT 98
[2022-11-10] MEDS: albuterol 2.5 mg/3 mL Neb INHALATION (09:14)
[2022-11-10 09:19] VITALS: PULSE 91
== END 2022-11-10 08:53 | disposition home or self-care (01) ==
LOC: RT 08:54
PROVIDERS: PCP Family Medicine; Visit Provider Internal Medicine Pulmonary Disease
DX: R91.1 Solitary pulmonary nodule (principal)
CPT/HCPCS: 94060; 94618; 94726; 94729; J7613

== ENCOUNTER 2022-11-20 06:18 | Outpatient (CLI) | payer BC, SELFPAY ==
--- NOTE | 2022-11-20 06:30 | CT_ITS ---
WS: [id number] CT chest ION (PULM ONLY) [id number] HISTORY: Prior to ION/EBUS on 11/24/22 TECHNIQUE: Axial imaging performed through the thorax. All CT scans at [facility] use at leas t one of these dose optimization techniques: automated exposure control; mA and/or kV adjustment per patient size (includes targeted exams where dose is matched to clinical indication); or iterative rec onstruction. CONTRAST: Omnipaque 350; 100 mL IV. DLP: 373.27 mGy COMPARISON: 09/29/2022 Lungs and central airway: Reidentified is a spiculated soft tissue mass in the LEFT upper lobe measur ing 1.8 x 2.4 cm. Stranding in distortion from the mass with a few small satellite lesions. No additi onal mass or nodule. No effusions. Pleura: Normal. No pleural effusion. Heart and pericardium: Normal size heart with no pericardial effusion. Mediastinum and efrain: There are a few small mediastinal and hilar lymph nodes. These were present on the prior study also. These lymph nodes were noted to be PET/CT positive. Vessels: Mild atherosclerosis aorta. Chest wall and lower neck: No soft tissue masses. Upper abdomen: Partially calcified nodule superior RIGHT lobe of the liver. Well-circumscribed nodule in the RIGHT adrenal gland measures 12 mm. Osseous structures: No destructive process. IMPRESSION: 1. Limited CT imaging prior to Ion bronchoscopy. 2. Reidentified spiculated mass LEFT upper lobe measuring 1.8 x 2.4 cm. 3. PET/CT positive hilar and mediastinal lymph nodes.
== END 2022-11-20 06:19 | disposition home or self-care (01) ==
PROVIDERS: PCP Family Medicine; Visit Provider Internal Medicine Pulmonary Disease
DX: R91.8 Other nonspecific abnormal finding of lung field (principal)
CPT/HCPCS: 71250

== ENCOUNTER 2022-11-24 05:54 | Day surgery (SDC) | payer BC, SELFPAY ==
[2022-11-23 13:52] VITALS: BMI 34.8
[2022-11-24] VITALS (12 sets, daily range): BP systolic 119–149; BP diastolic 74–93; PULSE 65–81; RESP 14–20; TEMP 36.1–36.2; O2SAT 93–97; BMI 34.8
[2022-11-24] MEDS: sodium chloride 0.9% 1,000 ML 30 ML IV (06:31)
[2022-11-24] MEDS: scopolamine 1.5 Patch 1 PATCH TRANSDERMA (06:33)
[2022-11-24] MEDS: ipratropium-albuterol 3 mL Neb INHALATION (06:46)
--- NOTE | 2022-11-24 06:59 | SC_ITS ---
WS: [id number] EXAMINATION: C-arm FL for Bronchoscopy ORDER DATE: 11/24/2022 6:59 AM REASON FOR EXAM: left upper lobe lung nodule COMPARISON: None available. FLUOROSCOPY TIME: 61.2 seconds # OF SPOT FILMS: 1 FINDINGS: Bronchoscope/biopsy apparatus overlying the left lung mass on a single AP view. IMPRESSION: Intraoperative confirmatory image as above.
--- NOTE | 2022-11-24 07:04 | ANES.PREANE2 ---
Pre-Anesthetic Assessment Height/Weight: Height 1.63 m Weight 92.079 kg Temp Pulse Resp BP Pulse Ox O2 Del Method 96.9 F L 72 16 138/93 96 Room Air 11/24/22 06:15 11/24/22 06:46 11/24/22 06:42 11/24/22 06:15 11/24/22 06:42 11/24/22 06:42 Operation Date: 11/24/22 07:00 Proposed Procedures s Ebus(Not Applicable) - Boby Houston MD p ION, EBUS, 06375, 24746, 68759, 22352, 54825, 01744, 39960, 08706, 67701, 44301, 23276, 83351, 24602, 98961,R91.8(Bilateral) - Boby Houston MD Was Beta Johanna taken within 24 hours: Yes Was Clonidine taken within 24 hours: N/A Last intake: Intake Last Liquid Date 11/23/22 Last Liquid Time 22:00 Last Solid Date 11/23/22 Last Solid Time 21:00 Social Tobacco Quitting, down to 1/2 ppd pack(s) per day Exam alert, oriented x 3 and regular rate & rhythm Airway Submandibular: within normal limits Cervical ROM: within normal limits Mallampati: Class II Dentition: false Comments: Comments: Upper denture History/ROS No significant history except as noted Pulmonary Chronic Obstructive Pulmonary Disease CV/HEM Hypertension Metabolic Hyperlipidemia Neuropsych Depression and Transient Ischemic Attack Recent TIAs, total occlusion carotid artery. No residual deficits. On plavix and ASA--plavix held since last week. Anesthetic Plan ASA status: 3 Anesthesia: General Risk of > 500 ml blood loss (7ml/kg in children): No Medications/Allergies Home Medications Medication Instructions Recorded Confirmed Last Taken Type albuterol sulfate 90 mcg/actuation 2 inh inhalation Q6H PRN shortness 08/18/21 11/24/22 11/24/22 Rx breath activated powder inhaler of breath or wheezing #1 ea citalopram 40 mg tablet 40 mg PO DAILY #90 tabs 05/27/22 11/23/22 11/23/22 Rx aripiprazole 15 mg tablet 15 mg PO DAILY 09/30/22 11/23/22 11/23/22 History cyclobenzaprine 10 mg tablet 10 mg PO BEDTIME PRN muscle spasm 09/30/22 11/23/22 11/23/22 History aspirin 81 mg tablet,delayed 81 mg PO DAILY 30 days #30 tabs 10/01/22 11/24/22 11/22/22 Rx release budesonide-formoterol HFA 160 2 puff inhalation BID #10.2 grams 10/13/22 11/24/22 11/24/22 Rx mcg-4.5 mcg/actuation aerosol inhaler (Symbicort) lisinopril 20 mg tablet 40 mg PO DAILY #90 tabs 10/17/22 11/23/22 11/23/22 Rx clopidogrel 75 mg tablet (Plavix) 75 mg PO DAILY 30 days #30 tabs 10/26/22 11/23/22 11/18/22 Rx hydroxyzine HCl 50 mg tablet See Rx Instructions .Route 10/26/22 11/24/22 11/20/22 Rx .COMPLEX #90 tabs labetalol 100 mg tablet 100 mg PO BID #60 tabs 10/26/22 11/24/22 11/24/22 Rx nicotine (polacrilex) 4 mg buccal 4 mg buccal Q6H PRN nicotine 10/26/22 11/23/22 11/22/22 Rx lozenge cravings #108 ea nicotine See Rx Instructions transdermal 10/26/22 11/23/22 11/23/22 Rx 21mg/24hr-14mg/24hr-7mg/24hr daily .COMPLEX #56 patches transderm patches,sequentl spironolactone 25 mg tablet 25 mg PO DAILY #30 tabs 10/26/22 11/24/22 11/20/22 Rx rosuvastatin 20 mg tablet (Crestor) 20 mg PO DAILY #30 tabs 11/05/22 11/23/22 11/23/22 Rx buspirone 10 mg tablet See Rx Instructions .Route 11/10/22 11/23/22 11/22/22 Rx .COMPLEX #60 tabs ondansetron 4 mg disintegrating 4 mg PO BID PRN Nausea 11/20/22 11/23/22 11/22/22 History tablet Allergies Allergy/AdvReac Type Severity Reaction Status Date / Time Penicillins Allergy Severe Anaphylaxis Verified 11/23/22 14:02 morphine Allergy Intermediate ADR-Vomitin Verified 11/23/22 14:02 g naproxen Allergy Intermediate ADR-Vomitin Verified 11/23/22 14:02 g lorazepam [From Ativan] AdvReac Severe Becomes Verified 11/23/22 14:02 aggressive. 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 Hx of nephrolithotomy with removal of calculi Hypertensive crisis Major depressive disorder, recurrent, moderate Missed periods Nicotine dependence, cigarettes, uncomplicated Oral abscess Post-traumatic stress disorder, chronic Psychiatric care Surgical History History of removal of ovarian cyst Hx of cholecystectomy Hx of hernia repair Hx of lithotripsy Family History Other CAD (coronary artery disease) Cancer Hypertension Psychiatric illness Stroke Denies family history of Diabetes Chronic kidney disease (CKD) Social History Smoking and tobacco status: current every day smoker cigarettes Packs smoked per day: 1 Years cigarettes smoked: 25 Alcohol intake: never Caregiver/support person: Yes Lives independently: Yes Household members: significant other Housing: House Current occupational status: employed Female Reproductive History Para: 0 Spontaneous abortions: Yes (all 6 pregnancies) Data Anesthesia Cardiac Studies: Echocardiogram 09/29/22 Echocardiogram Ultrasound 10/22/19
--- NOTE | 2022-11-24 07:13 | W.PM.OPSUD ---
Surgery/Procedure H&P Update DATE OF PROCEDURE: November 24, 2022 DATE H&P PERFORMED: 11/17/22 H&P UPDATE INFORMATION: I have reviewed H&P completed within last 30 days, I have examined patient prior to procedure and No changes to prior documentation CHANGES TO PREVIOUS DOCUMENTATION: none PRIMARY INDICATION FOR PROCEDURE: left upper lobe pet Active lesion - suspicious for malignancy PLANNED PROCEDURE: Operation Date: 11/24/22 07:00 Proposed Procedures s Ebus(Not Applicable) - Boby Houston MD p ION, EBUS, 70266, 95939, 02161, 66337, 70634, 76135, 37914, 37302, 01279, 96304, 82202, 67809, 95729, 15743,R91.8(Bilateral) - Boby Houston MD
[2022-11-24 08:51] LABS: Cyto Order Verification Order Verified
[2022-11-24] MEDS: lidocaine 1% INJ 20 mL 10 ML XX (08:52)
[2022-11-24 09:04] LABS: Apprearance, Bronch Wash Hazy (CLEAR); Bronch Source Left Upper Lobe; Color, Bronc Wash Colorless
--- NOTE | 2022-11-24 09:11 | XR_ITS ---
WS: [id number] XR chest 1V portable [id number] REASON FOR EXAM: POST OP FINDINGS: No left pneumothorax. Left lung mass adjacent to the superior left hilum again noted. IMPRESSION: No pneumothorax.
--- NOTE | 2022-11-24 09:37 | P.OP_ITS ---
Operative Report Date of procedure: November 24, 2022 Pre-op diagnosis: PET active left upper lobe lesion-suspicious for malignancy Post-op diagnosis: Same Procedure done: 36905 Dx Bronchoscope w/Washings or airway inspection 73505 Dx Bronchoscope w/BAL 42388 Bronch with computer image guided Navigational Bronchoscopy 46133 Bronchoscopy w/Transbronchial lung biopsy(s), single lobe 12080 Bronchoscopy w/Transbronchial needle aspiration biopsy(s), tracheal, main stem, and/or lobar bronchus 29897 Bronchoscopy w/ therapeutic aspiration of the tracheobronchial tree ( clearance of airway secretions, removal of mucus plugs) 68371 EBUS Sampling 1/2 nodes 40089 EBUS Diag or Interven Peripheral lesion (radial EBUS) Surgeon: Boby Houston MD Brief History: Leann Monte is a 47year old female With past medical history of TIA, proximal ICA occlusion, anxiety, depression, uncontrolled hypertension on multiple medications, PTSD admitted to hospital for TIA on 09/29/2022. MRI brain showed tiny cortical acute lacunar infarcts in left frontal and parietal lobes.? There is moderate small vessel ischemic type changes throughout white matter.? MRA showed very short segment occlusion and near complete occlusion involving the proximal ICA.Patient is not a candidate for surgical intervention Given complete occlusion. Her symptoms improved. Pulmonary consulted the next day to evaluate for possible biopsies of left upper lobe lesion seen on neck CT scan and subsequent CT chest 09/29/2022.? Upon review there was a very small suspicious lesion on CT 10/22/2019 which was reported as mild tree-in-bud lesion.? Unfortunately it has increased to 1.7 x 2.2 cm nodule in posterior left upper lobe. Patient is a chronic smoker smokes at least 1 pack/day For the 30 years and currently smoking half pack per day.? She is at high risk for malignancy. While in the hospital, given her acute TIA symptoms 24 hours ago, occlusion of left carotid artery there is significant risk of hypotension during anesthesia/sedative use to get acute full-blown stroke especially in the immediate post TIA..? I have discussed with anesthesia and decided to defer biopsies? and so patient was placed on? aspirin and Plavix for at least 3 weeks. While on Plavix, we obtained a PET CT scan 11/02/2022 which showed? In the left upper lobe, at the apicoposterior segment, a malignant pulmonary nodule is 2.5 x 2.5 x 2.0 cm.? Its max SUV is 12.8, which is confirms that it is malignant.? It extends directly into the left pulmonary hilum.Hilar and left lower paratracheal lymph adenopathy. An 8 mm nodule in the right thyroid lobe is mildly FDG avid with an max SUV of 5.2. Nonemergent thyroid ultrasound is recommended. She has a neurology follow-up on 11/05 and pt is cleared from neurology standpoint to hold Plavix for lung biopsy since CT angiogram reveals complete occlusion of the left internal carotid artery. She is also seen by CV surgeon on 11/17/2022 and recommended no intervention required due to complete obstruction. Today she comes for bronchoscopic evaluation with navigational bronchoscopy to obtain biopsies from left upper lobe nodule as well as endobronchial ultrasound- guided biopsies of hilar/mediastinal lymph nodes. Procedure: 84882 Dx Bronchoscope w/Washings or airway inspection 11369 Dx Bronchoscope w/BAL 21138 Bronch with computer image guided Navigational Bronchoscopy 01742 Bronchoscopy w/Transbronchial lung biopsy(s), single lobe 80275 Bronchoscopy w/Transbronchial needle aspiration biopsy(s), tracheal, main stem, and/or lobar bronchus 63420 Bronchoscopy w/ therapeutic aspiration of the tracheobronchial tree (clearance of airway secretions, removal of mucus plugs) 25557 EBUS Sampling 1/2 nodes 93862 EBUS Diag or Interven Peripheral lesion (radial EBUS) Indication: Description of the procedure: The procedure was explained to the patient and the consent was obtained. The patient was brought to the OR. Anesthesia: The patient underwent endotracheal intubation for general anesthesia. Local anesthesia: The distal trachea-Jaden, right and left mainstem bronchi were anesthetized with 1% lidocaine, 3 mL. Following induction of general anesthesia, the flexible bronchoscope was advanced through the ET tube. The lower trachea mucosa appeared normal, no endotracheal lesion was seen. The jaden was sharp. The jaden, the right and left mainstem bronchi are anesthetized with 1% lidocaine. In a systematic manner bilateral bronchial tree was then examined. The bronchoscope was then introduced into the right mainstem bronchus. The right upper lobe, right middle lobe and right lower lobe bronchi were examined up to the third subsegmental level and no abnormalities were identified.Mucosa appeared normal with no endobronchial lesion, active bleeding or mucous plug.There were significant clear secretions which were suctioned right away.(01954). The bronchoscope was advanced into the left mainstem bronchus. The mucosa appeared normal with no endobronchial lesions. The left upper lobe, lingula and left lower lobe bronchi were examined up to the third subsegmental level and no abnormalities were identified. Mucosa appeared normal with no endobronchial lesion, active bleeding or mucous plug. There were significant clear secretions which were suctioned right away.(49580). After initial inspection as well as airway clearance with flexible bronchoscope(52888), ION robotic assisted navigational bronchoscope (73666) was introduced-and left upper lobe lesion was accessed. After confirming the location with radial EBUS (61041), under the fluoroscopy guidance -we were able to obtain biopsies using fine-needle, brushing.There was some evidence of grade 2 bleeding-cold saline was instilled. BAL was also taken from left upper lobe posterior apical segment. After making sure there is no active bleeding navigational bronchoscope was retracted and introduced Endobronchial ultrasound EBUS (18207). With the help of EBUS, identified lymph nodes at station 4L and station 7. Fine-needle aspiration biopsies were taken from lymph nodes at station 4L and station 7. (93570) After taking the biopsies EBUS retracted-diagnostic bronchoscope was introduced to check for any evidence of active bleeding. There was some evidence of bleeding-controlled with instillation of cold saline. After making sure there is no active bleeding bronchoscope was retracted and procedure terminated. Samples: A. Left upper lobe lesion: 1. Total of 5 passes were made using needle aspiration(57831); 1 pass was used to prepare slide for onsite pathology review-they reported seeing malignant cells; rest of the material was placed in formalin for histopathology 2. Targeting the same area Total of 5 passes were made using forceps (48870); 1 pass was used to prepare slide for onsite pathology review-they reported not seeing malignant cells and so recommended to follow-up with final pathology; rest of the material was placed in formalin for histopathology 3. Bronchoscope was wedged at the entrance of the anterior segment of left upper lobe, 20 mL of saline was instilled and returned 13 mL of bronchoalveolar lavage (04420). The fluid was mixed with blood and specks of tissue. Samples for cell count, cytology, cultures B. EBUS guided Fine-needle aspiration biopsies were taken from station 4L station 7. (65692) 1. Total of 4 passes were made using needle aspiration(83756) from station 7; 1 pass was used to prepare slide for onsite pathology review-they reported not seeing malignant cells and so recommended to follow-up with final pathology; rest of the material was placed in formalin for histopathology. 2. Total of 3 passes were made using needle aspiration(16813) from station 4L: 1 pass was used to prepare slide for onsite pathology review-they reported seeing malignant cells; rest of the material was placed in formalin for histopathology Complications: None.The patient was extubated and brought to the PACU in stable condition. Postprocedure chest x-ray: There is no evidence of pneumothorax Disposition: Patient can be discharged home in stable condition. Pt, and her family are aware that I am going to call them to update final biopsy results once available.
--- NOTE | 2022-11-24 09:45 | ANE.PACU2 ---
Inpatient post-anesthesia follow up: Airway intact: Yes Vital signs: Temperature 97.0 F Pulse Rate 75 Respiratory Rate 20 Blood Pressure 149/93 Pulse Oximetry 94 Oxygen Delivery Me thod Room Air Oxygen Flow Rate 3 Fraction of Inspir ed Oxygen Hydration adequate: Yes Nausea and vomiting: No Pain level: 1 Mental status: Baseline
[2022-11-24 15:45] LABS: PATH Referral Yes; Total Cells Counted Bronch 100
== END 2022-11-24 10:16 | disposition home or self-care (01) ==
PROVIDERS: PCP Family Medicine; Visit Provider Internal Medicine Pulmonary Disease
PROC: BB4BZZZ Ultrasonography of Pleura (ICD-10-PCS; principal; 2022-11-24 07:00)
PROC: 0BJ08ZZ Inspection of Tracheobronchial Tree, Via Natural or Artificial Opening Endoscopic (ICD-10-PCS; CPT 31622; 2022-11-24 07:00)
DX: C34.12 Malignant neoplasm of upper lobe, left bronchus or lung (principal); F17.210 Nicotine dependence, cigarettes, uncomplicated; J44.9 Chronic obstructive pulmonary disease, unspecified; I10 Essential (primary) hypertension; E78.5 Hyperlipidemia, unspecified; F32.A Depression, unspecified; Z86.73 Personal history of transient ischemic attack (TIA), and cerebral infarction without residual deficits; Z79.82 Long term (current) use of aspirin
CPT/HCPCS: 31624; 31627; 31628; 31629; 31645; 31652; 31654; 71045; 76000; 80503; 87070; 87205; 88112; 88305; 88342; 89050; 94640; J1100; J2250; J2371; J2405; J2704; J2710; J3010; J3490; J7030

== ENCOUNTER 2022-11-30 13:39 | Oncology outpatient (recurring) (ONCR) | payer BC, SELFPAY ==
[2022-11-30 15:25] LABS: Basophils % 0.3 %; Eosinophils # 0.3 10^3/uL (0.0-0.8); Eosinophils % 3.9 %; Lymphocytes # 1.9 10^3/uL (0.8-4.8); Lymphocytes % 26.9 %; Mean Corpuscular HGB Conc 32.9 g/dL (30-55); Mean Corpuscular Hemoglobin 32.4 pg (27-33); Mean Corpuscular Volume 98.3 fl (85-98); Mean Platelet Volume 8.5 fL (7.4-10.4); Monocytes # 0.5 10^3/uL (0.2-0.9); Monocytes % 6.5 %; Neutrophils % 62.1 %; Nucleated Red Blood Cells % 0 %; Platelet Count 302 10^3/cmm (157-399); Red Blood Count 3.46 10^6/uL (3.85-5.65); Red Cell Distribution Width 13.9 % (12.1-15.1); White Blood Count 7.09 10^3/uL (3.29-11.43)
[2022-11-30 15:42] LABS: Alanine Aminotransferase 17 U/L (0-33); Albumin Level 3.9 g/dL (3.5-5.2); Alkaline Phosphatase 106 U/L (35-105); Aspartate Amino Transferase 9 U/L (0-32); Blood Urea Nitrogen 10 mg/dL (6-20); Calcium 8.4 mg/dL (8.5-10.5); Carbon Dioxide 26 mmol/L (22-29); Chloride 107 mmol/L (98-107); Globulin 2.7 g/dL (1.3-4.6); Glomerular Filtration Rate 67.1 mL/min (90-130); Glucose 86 mg/dL (65-115); Osmolality Calculated 288 mOsm/kg (285-295); Sodium 140 mmol/L (136-145); Total Bilirubin 0.3 mg/dL (0.15-1.2); Total Protein 6.6 g/dL (6.6-8.7)
== END 2022-12-05 23:59 | disposition home or self-care (01) ==
PROVIDERS: PCP Family Medicine; Visit Provider Internal Medicine Medical Oncology
DX: C34.12 Malignant neoplasm of upper lobe, left bronchus or lung (principal); I65.22 Occlusion and stenosis of left carotid artery; F17.210 Nicotine dependence, cigarettes, uncomplicated; Z79.899 Other long term (current) drug therapy
CPT/HCPCS: 36415; 80053; 85025

== ENCOUNTER 2022-12-04 10:47 | Outpatient (CLI) | payer BC, SELFPAY ==
--- NOTE | 2022-12-04 11:00 | MR_ITS ---
WS: [id number] MRI HEAD WITH CONTRAST TECHNIQUE: Sagittal T1, T2 axial, T2 axial FLAIR, axial susceptibility weighted imaging, axial diffus ion weighted images, and coronal T2 images were obtained. Pre and post-T1 axial and post T1 coronal i mages. ADC and FSPGR images. CLINICAL INFORMATION: Non small cell lung cancer, thyroid nodule COMPARISON: MRI 09/30/2022 FINDINGS: No evidence of restricted diffusion to suggest acute ischemia. Ventricular system and basilar cistern s are patent. Mild supratentorial white matter changes can be seen with hypertension, diabetes, small vessel disease and migraine headaches. This is similar to previous. No significant parenchymal volum e loss. Normal posterior fossa. Normal vascular flow voids at the skull base. Paranasal sinuses and mastoid a ir cells are well aerated. Normal posterior nasopharynx. Normal parapharyngeal fat. Normal optic chiasm and pituitary infundibulum. No hemosiderin on susceptibly weighted images. No abnormal gadolinium enhancement. Previously described areas of enhancement not seen today. No evid ence of enhancing intracranial metastatic disease. Normal visualized dural venous sinuses. IMPRESSION: 1. No evidence of enhancing intracranial metastatic disease. 2. No restricted diffusion to suggest acute ischemia. 3. Mild supratentorial white matter changes can be seen with hypertension, diabetes, migraine headac hes, and small vessel disease similar to previous. 4. No hemosiderin on susceptibility-weighted images. 5. No other suspicious findings.
[2022-12-04] MEDS: gadobenate dimeglumine 20 mL vial IV (11:34)
== END 2022-12-04 10:48 | disposition home or self-care (01) ==
PROVIDERS: PCP Family Medicine; Visit Provider Internal Medicine Medical Oncology
DX: C34.90 Malignant neoplasm of unspecified part of unspecified bronchus or lung (principal)
CPT/HCPCS: 70553; A9577

== ENCOUNTER 2022-12-08 08:02 | Outpatient (CLI) | payer BC, SELFPAY ==
--- NOTE | 2022-12-08 08:15 | US_ITS ---
WS: [id number] ULTRASOUND THYROID TECHNIQUE: Ultrasound of the thyroid. CLINICAL INFORMATION: Non small cell lung cancer, thyroid nodule COMPARISON: None. FINDINGS: Thyroid: Right and left thyroid lobes are normal in size and echotexture. Right thyroid lobe: 4.9 cm x 1.9 cm x 1.9 cm Isoechoic nodule RIGHT lower pole measuring 1.2 x 0.7 x 1.2 cm with ill-defined margins. This likely corresponds to the FDG avid nodule. No other suspicious nodules. A few tiny micronodules bilaterally. Left thyroid lobe: 3.8 cm x 1.5 cm x 1.8 cm. Isthmus: 0.5 mm. Cervical lymphadenopathy: None. IMPRESSION: 1. Isoechoic nodule RIGHT lower pole measuring 1.2 x 0.7 x 1.2 cm. This likely corresponds to the FD G avid nodule. 2. Recommend further evaluation with ultrasound-guided FNA considering FDG activity.
== END 2022-12-08 08:03 | disposition home or self-care (01) ==
PROVIDERS: PCP Family Medicine; Visit Provider Internal Medicine Medical Oncology
DX: E04.1 Nontoxic single thyroid nodule (principal)
CPT/HCPCS: 76536

== ENCOUNTER 2022-12-13 17:56 | Emergency (ER) | payer BC, SELFPAY ==
[2022-12-13 18:07] VITALS: BP 208/122; PULSE 96; RESP 22; TEMP 36.7; O2SAT 97; BMI 34.8
--- NOTE | 2022-12-13 18:14 | XRR_ITS ---
PROCEDURE INFORMATION: Exam: XR Chest Exam date and time: 12/13/2022 6:23 PM Age: 47 years old Clinical indication: Cough and dyspnea and fever; Patient HX: Cough; Fever; SOB; Recent lung CA diagnosis TECHNIQUE: Imaging protocol: Radiologic exam of the chest. Views: 1 view. COMPARISON: CR XR chest 1V portable [id number] 11/24/2022 9:13 AM FINDINGS: Lungs: Indistinct left suprahilar opacity unchanged presumed represent patient's known bronchogenic malignancy. There is a 2nd indistinct opacity adjacent to the right heart border that may represent a small infiltrate or subsegmental atelectasis. Remaining lung still are clear. Pleural spaces: Unremarkable. No pleural effusion. No pneumothorax. Heart/Mediastinum: Heart is borderline enlarged, stable. Bones/joints: Unremarkable for age. XR/XR chest 1V portable [id number] IMPRESSION: New small indistinct opacity adjacent to the right heart border that may be secondary to subsegmental atelectasis or pneumonitis.
[2022-12-13 19:00] LABS: Basophils % 0.3 %; Eosinophils # 0.3 10^3/uL (0.0-0.8); Eosinophils % 3.3 %; Hematocrit 35.8 % (36-47); Lymphocytes # 2.4 10^3/uL (0.8-4.8); Lymphocytes % 31.2 %; Mean Corpuscular HGB Conc 32.1 g/dL (30-55); Mean Corpuscular Volume 96.5 fl (85-98); Mean Platelet Volume 8.2 fL (7.4-10.4); Monocytes # 0.4 10^3/uL (0.2-0.9); Neutrophils # 4.57 10^3/uL (1.8-7.7); Neutrophils % 59.9 %; Nucleated Red Blood Cells % 0 %; Platelet Count 319 10^3/cmm (157-399); Red Blood Count 3.71 10^6/uL (3.85-5.65); Red Cell Distribution Width 13.8 % (12.1-15.1); White Blood Count 7.62 10^3/uL (3.29-11.43)
[2022-12-13 19:16] LABS: Alanine Aminotransferase 11 U/L (0-33); Albumin Level 3.9 g/dL (3.5-5.2); Alkaline Phosphatase 111 U/L (35-105); Aspartate Amino Transferase 9 U/L (0-32); Blood Urea Nitrogen 11 mg/dL (6-20); Calcium 8.8 mg/dL (8.5-10.5); Carbon Dioxide 28 mmol/L (22-29); Chloride 104 mmol/L (98-107); Globulin 3.1 g/dL (1.3-4.6); Glomerular Filtration Rate 59.4 mL/min (90-130); Glucose 108 mg/dL (65-115); Osmolality Calculated 290 mOsm/kg (285-295); Sodium 140 mmol/L (136-145); Total Bilirubin 0.2 mg/dL (0.15-1.2)
[2022-12-13 19:36] LABS: Slide Review Slide Review Perform
[2022-12-13 19:42] LABS: Influenza A by IFA negative (Negative); Influenza B by IFA negative (Negative)
[2022-12-13 19:43] LABS: SARS Covid-2 Antigen Negative (Negative)
--- NOTE | 2022-12-13 19:49 | ED_ITS ---
HPI - SOB/Dyspnea General: Chief Complaint: Shortness of Breath/Dyspnea Stated Complaint: sob, cough Time Seen by Provider: 12/13/22 18:12 History of Present Illness: HPI Narrative: Patient presents to the ER with complaints of cough shortness of breath. Radha gannon is recently diagnosed with stage IV lung cancer approximately 2 weeks ago where she had a lung biopsy by Dr. Villegas. After that she complains of cough shortness of breath and mucus production possible fever with chills. Wheezing. Coughing so hard she is starting to have chest pain when she takes big deep breaths. Some nausea and diarrhea but no vomiting. Patient has an upcoming appointment with her oncologist next week as well as her PCP. 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 Hx of nephrolithotomy with removal of calculi Hypertensive crisis Major depressive disorder, recurrent, moderate Missed periods Nicotine dependence, cigarettes, uncomplicated Oral abscess Post-traumatic stress disorder, chronic Psychiatric care Surgical History History of removal of ovarian cyst Hx of cholecystectomy Hx of hernia repair Hx of lithotripsy Family History Other CAD (coronary artery disease) Cancer Hypertension Psychiatric illness Stroke Denies family history of Diabetes Chronic kidney disease (CKD) Social History Smoking and tobacco status: current every day smoker cigarettes Packs smoked per day: 0.5 Years cigarettes smoked: 25 [ Other cigarette details: Trying to stop smoking] Alcohol intake: never Caregiver/support person: Yes Lives independently: Yes Household members: significant other Housing: House Current occupational status: employed Female Reproductive History: Para: 0 Spontaneous abortions: Yes (all 6 pre gnancies) Physical Exam HENMT: COMMON NORMALS: normocephalic, atraumatic, hearing grossly normal bilaterally, external ears normal, Normal external nose present and moist oral mucous membranes HEAD & SCALP: normocephalic and atraumatic NOSE: Normal external nose present EXTERNAL EAR: Yes external ears normal Eye: COMMON NORMALS: Equal, round and reactive pupils present, EOMs intact bilaterally, conjunctivae normal and no scleral icterus CONJUNCTIVA: Yes conjunctivae normal PUPIL: Yes Equal, round and reactive pupils present Neck/C-Spine: COMMON NORMALS: full ROM, no lymphadenopathy, supple, no meningeal signs, no JVD and Thyroid normal THYROID: Thyroid normal Chest: COMMONS NORMALS: normal inspection of the chest and normal palpation of entire chest wall Resp: COMMON NORMALS: normal respiratory effort, No retractions and No use of accessory muscles; negative for clear to auscultation bilaterally (Rales and rhonchi throughout) AUSCULTATION: not clear to auscultation bilaterally (Rales and rhonchi throughout) Cardio: COMMON NORMALS: no JVD, regular rate, regular rhythm, S1 normal heart sound present, S2 normal heart sound present, No gallops present (Cardio), No clicks present (Cardio), No murmurs present (Cardio) and No rub (Cardio) RATE: regular rate RHYTHM: regular rhythm HEART SOUNDS: S1 normal heart sound present and S2 normal heart sound present GI: COMMON NORMALS: Normal to inspection, nondistended, normoactive bowel sounds present, Soft to palpation, non-tender, No hepatosplenomegaly present and no masses PALPATION: Yes Soft to palpation and Yes No hepatosplenomegaly present : COMMON NORMALS: Yes no CVA tenderness BLADDER/KIDNEY EXAM: Yes no CVA tenderness Back/Pelvis: COMMON NORMALS: no CVA tenderness Neuro: MENINGEAL SIGNS: Yes no meningeal signs Course Vital Signs: Vital signs: Vital Signs Temperature 98.1 F 12/13/22 18:07 Pulse Rate 96 12/13/22 18:07 Respiratory Rate 22 H 12/13/22 18:07 Blood Pressure 208/122 12/13/22 18:07 Pulse Oximetry 97 12/13/22 18:07 Oxygen Delivery Me thod Room Air 12/13/22 18:07 MDM - SOB/Dyspnea Medical Decision Making Patient presents to the ER with shortness of breath possible fever and increased mucus production for about 2 weeks. Patient recently got diagnosed with stage IV lung cancer per biopsy by Dr. Villegas. Patient was worked up with a chest x- ray as well as testing for COVID and influenza and blood work. All of which were which were negative. Chest x-ray showed possible subsegmental atelectasis or pneumonitis. Patient was wheezing throughout and was given a DuoNeb breathing treatment which improved breath sounds. Anticipate patient to be discharged home to follow-up with her PCP and oncologist as previously scheduled next week. Differential Diagnosis Unlikely acute exacerbation of chronic obstructive airways disease, congestive heart failure, community acquired pneumonia, asthma with exacerbation or pulmonary embolism Lab Data 12/13/22 18:45 12/13/22 18:45 Labs/Radiology: Radiology Impressions Chest X-Ray 12/13/22 18:14 IMPRESSION: New small indistinct opacity adjacent to the right heart border that may be secondary to subsegmental atelectasis or pneumonitis. Laboratory Results WBC 7.62 10^3/uL (3.29-11.43) 12/13/22 18:45 RBC 3.71 10^6/uL (3.85-5.65) L 12/13/22 18:45 Hgb 11.50 g/dL (11.27-16.99) 12/13/22 18:45 Hct 35.8 % (36-47) L 12/13/22 18:45 MCV 96.5 fl (85-98) 12/13/22 18:45 MCH 31.0 pg (27-33) 12/13/22 18:45 MCHC 32.1 g/dL (30-55) 12/13/22 18:45 RDW 13.8 % (12.1-15.1) 12/13/22 18:45 Plt Count 319 10^3/cmm (157-399) 12/13/22 18:45 MPV 8.2 fL (7.4-10.4) 12/13/22 18:45 Neut % (Auto) 59.9 % 12/13/22 18:45 Lymph % (Auto) 31.2 % 12/13/22 18:45 [place] % (Auto) 5.0 % 12/13/22 18:45 Eos % (Auto) 3.3 % 12/13/22 18:45 Baso % (Auto) 0.3 % 12/13/22 18:45 Neut # (Auto) 4.57 10^3/uL (1.8-7.7) 12/13/22 18:45 Lymph # (Auto) 2.4 10^3/uL (0.8-4.8) 12/13/22 18:45 [place] # (Auto) 0.4 10^3/uL (0.2-0.9) 12/13/22 18:45 Eos # (Auto) 0.3 10^3/uL (0.0-0.8) 12/13/22 18:45 Baso # (Auto) 0.0 10^3/uL (0.0-0.1) 12/13/22 18:45 Nucleated RBC % (auto) 0 % 12/13/22 18:45 Nucleated RBCs # 0.0 /100WBC 12/13/22 18:45 Sodium 140 mmol/L (136-145) 12/13/22 18:45 Potassium 4.0 mmol/L (3.5-5.1) 12/13/22 18:45 Chloride 104 mmol/L (98-107) 12/13/22 18:45 Carbon Dioxide 28 mmol/L (22-29) 12/13/22 18:45 Anion Gap 12.0 (5-19) 12/13/22 18:45 BUN 11 mg/dL (6-20) 12/13/22 18:45 Creatinine 1.0 mg/dL (0.5-0.9) H 12/13/22 18:45 GFR Calculation 59.4 mL/min (90-130) L 12/13/22 18:45 Glucose 108 mg/dL (65-115) 12/13/22 18:45 Calculated Osmolality 290 mOsm/kg (285-295) 12/13/22 18:45 Calcium 8.8 mg/dL (8.5-10.5) 12/13/22 18:45 Total Bilirubin 0.2 mg/dL (0.15-1.2) 12/13/22 18:45 AST 9 U/L (0-32) 12/13/22 18:45 ALT 11 U/L (0-33) 12/13/22 18:45 Alkaline Phosphatase 111 U/L (35-105) H 12/13/22 18:45 NT-Pro-B Natriuret Pep 672 pg/mL (0-125) H 12/13/22 18:45 Total Protein 7.0 g/dL (6.6-8.7) 12/13/22 18:45 Albumin 3.9 g/dL (3.5-5.2) 12/13/22 18:45 Globulin 3.1 g/dL (1.3-4.6) 12/13/22 18:45 Influenza Type A Ag negative (Negative) 12/13/22 18:55 Influenza Type B Ag negative (Negative) 12/13/22 18:55 SARS-CoV-2 Ag (Rapid) Negative (Negative) 12/13/22 18:55 All radiology interpretation(s) finalized by discharge Discharge Plan Discharge Patient Disposition: Home Clinical Impression: Viral syndrome Condition: Stable Prescriptions: No Action albuterol sulfate 90 mcg/actuation aerosol powdr breath activated 2 inh INHALATION Q6H PRN (Reason: shortness of breath or wheezing) Qty: 1 1RF citalopram 40 mg tablet 40 mg PO DAILY Qty: 90 1RF budesonide-formoterol [Symbicort] 160-4.5 mcg/actuation HFA aerosol inhaler 2 puff inhalation BID Qty: 10.2 3RF clopidogrel [Plavix] 75 mg tablet 75 mg PO DAILY 30 Days Qty: 30 11RF labetalol 100 mg tablet 100 mg PO BID Qty: 60 11RF spironolactone 25 mg tablet 25 mg PO DAILY Qty: 30 10RF nicotine 21-14-7 mg/24 hr patch, TD daily, sequential See Rx Instructions transdermal .COMPLEX Qty: 56 0RF Rx Instructions: apply 1-21 mg NICOTINE PATCH daily for 28 days; follow with 1-14 mg PATCH daily for 14 days, then 1-7mg PATCH daily for 14 days transdermal nicotine (polacrilex) 4 mg lozenge 4 mg buccal Q6H PRN (Reason: nicotine cravings) Qty: 108 2RF omega-3 fatty acids 1,000 mg capsule 1,000 mg PO DAILY CBD Gummies 50 mg PO 1XD CBG Gummies 15mg PO 1XD hydroxyzine HCl 50 mg tablet See Rx Instructions .ROUTE .COMPLEX Qty: 90 1RF Dose Instruction: take 1- TWO tablets BY MOUTH AT BEDTIME as needed for anxiety Rx Instructions: take 1- TWO tablets BY MOUTH AT BEDTIME as needed for anxiety buspirone 10 mg tablet See Rx Instructions .ROUTE .COMPLEX Qty: 60 3RF Dose Instruction: take 1/2 to 1 tablet BY MOUTH TWICE DAILY NEEDED FOR ANXIETY Rx Instructions: take 1/2 to 1 tablet BY MOUTH TWICE DAILY NEEDED FOR ANXIETY aripiprazole 15 mg tablet 15 mg PO DAILY cyclobenzaprine 10 mg tablet 10 mg PO BEDTIME PRN (Reason: muscle spasm) aspirin 81 mg Tablet,Delayed Release (Dr/Ec) 81 mg PO DAILY 30 Days Qty: 30 2RF ondansetron 4 mg tablet,disintegrating 4 mg PO BID PRN (Reason: Nausea) Rx Instructions: DISSOLVE ONE TABLET BY MOUTH EVERY TWELVE HOURS NEEDED FOR NAUSEA AND VOMITING lisinopril 20 mg tablet 40 mg PO DAILY Qty: 90 1RF Discharge Orders: Discharge ED (Routine); Ordered 12/13/22 Ordered By: Liban Stuart Referrals: Jean Iniguez DO [Primary Care Provider] - 1 week Patient Instructions: Viral Syndrome - Adult Activity Restrictions/Additional Instructions: Please keep your already scheduled appointment with your oncologist and your primary care doc as follow-up. Coding Level of Care Code ED [employer] for Scotty Lewis
[2022-12-13 20:23] LABS: NT Pro B Type Natriuretic Pept 672 pg/mL (0-125)
== END 2022-12-13 20:46 | disposition home or self-care (01) ==
PROVIDERS: Emergency Provider Emergency Medicine; PCP Family Medicine
DX: B34.9 Viral infection, unspecified (principal); Z79.02 Long term (current) use of antithrombotics/antiplatelets; Z79.82 Long term (current) use of aspirin; Z11.52 Encounter for screening for COVID-19; F17.210 Nicotine dependence, cigarettes, uncomplicated
CPT/HCPCS: 36415; 71045; 80053; 83880; 85025; 87426; 87804; 99284

== ENCOUNTER 2023-01-04 15:42 | Oncology outpatient (recurring) (ONCR) | payer BC, SELFPAY | END 2023-01-05 23:59 | disposition home or self-care (01) | PROVIDERS: PCP Family Medicine; Visit Provider Internal Medicine Medical Oncology | DX: C34.90 Malignant neoplasm of unspecified part of unspecified bronchus or lung (principal); I65.22 Occlusion and stenosis of left carotid artery; Z79.899 Other long term (current) drug therapy ==

== ENCOUNTER 2023-02-02 10:25 | Day surgery (SDC) | payer BC, SELFPAY ==
[2023-02-02] VITALS (11 sets, daily range): BP systolic 162–222; BP diastolic 103–159; PULSE 69–101; RESP 16–18; TEMP 36.1–36.4; O2SAT 94–99; BMI 35.4
--- NOTE | 2023-02-02 10:31 | P.HPUD_ITS ---
Surgery/Procedure H&P Update DATE OF PROCEDURE: February 02, 2023 DATE H&P PERFORMED: 11/17/22 H&P UPDATE INFORMATION: I have reviewed H&P completed within last 30 days, I have examined patient prior to procedure, No changes to prior documentation and H&P is in [facility] [place] on date indicated PLANNED PROCEDURE: Operation Date: 02/02/23 12:00 Proposed Procedures p 61414 port placement C34.90(Not Applicable) - Timo Ko MD
--- NOTE | 2023-02-02 10:51 | SC_ITS ---
WS: [id number] INTRAOPERATIVE TECHNIQUE: 2 Spot fluoroscopic images for intraoperative purposes. FLUOROSCOPY TIME: 19.7 seconds CLINICAL INFORMATION: intraoperative COMPARISON: None. FINDINGS: RIGHT Port-A-Cath with tip in the distal SVC. IMPRESSION: Images obtained for intraoperative purposes.
--- NOTE | 2023-02-02 10:53 | P.ANESASSM_ITS ---
Pre-Anesthetic Assessment Height/Weight: Height 1.6 m Weight 90.718 kg Temp Pulse Resp BP Pulse Ox O2 Del Method 97.5 F L 84 18 172/110 99 Room Air 02/02/23 10:43 02/02/23 10:43 02/02/23 10:43 02/02/23 10:43 02/02/23 10:43 02/02/23 10:43 Operation Date: 02/02/23 12:00 Proposed Procedures p [id number] port placement C34.90(Not Applicable) - Timo Ko MD Familial anesthetic complications: awareness during her endoscopy, informed patient this is known risk of anesthesia for endscopy Was Beta Johanna taken within 24 hours: Yes Was Clonidine taken within 24 hours: N/A Last intake: Intake Last Liquid Date 02/01/23 Last Liquid Time 22:30 Last Solid Date 02/01/23 Last Solid Time 18:30 Social No alcohol and No tobacco marijuana use Exam alert, oriented x 3, clear to auscultation bilaterally and regular rate & rhythm Airway Mallampati: Class II Dentition: false Pulmonary Asthma and Chronic Obstructive Pulmonary Disease Lung Ca CV/HEM Hypertension Metabolic Morbid Obesity Neuropsych Cerebrovascular Accident (plavix) Anesthetic Plan ASA status: 4 Anesthesia: MAC Risk of > 500 ml blood loss (7ml/kg in children): No Medications/Allergies Home Medications Medication Instructions Recorded Confirmed Last Taken Type aspirin 81 mg tablet,delayed 81 mg PO DAILY 30 days #30 tabs 10/01/22 02/01/23 01/30/23 Rx release budesonide-formoterol HFA 160 2 puff inhalation BID #10.2 grams 10/13/22 02/01/23 02/01/23 Rx mcg-4.5 mcg/actuation aerosol inhaler (Symbicort) lisinopril 20 mg tablet 40 mg (2 x 20 mg) PO DAILY #90 tabs 10/17/22 02/01/23 02/01/23 Rx clopidogrel 75 mg tablet (Plavix) 75 mg PO DAILY 30 days #30 tabs 10/26/22 02/01/23 01/27/23 Rx labetalol 100 mg tablet 100 mg PO BID #60 tabs 10/26/22 02/01/23 02/02/23 08:00 Rx nicotine (polacrilex) 4 mg buccal 4 mg buccal Q6H PRN nicotine 10/26/22 02/01/23 11/22/22 Rx lozenge cravings #108 ea nicotine See Rx Instructions transdermal 10/26/22 02/01/23 02/01/23 Rx 21mg/24hr-14mg/24hr-7mg/24hr daily .COMPLEX #56 patches transderm patches,sequentl spironolactone 25 mg tablet 25 mg PO DAILY #30 tabs 10/26/22 02/01/23 02/01/23 Rx buspirone 10 mg tablet See Rx Instructions .Route 11/10/22 02/01/23 01/30/23 Rx .COMPLEX #60 tabs ondansetron 4 mg disintegrating 4 mg PO BID PRN Nausea 11/20/22 02/01/23 01/20/23 History tablet omega-3 fatty acids 1,000 mg 1,000 mg PO DAILY 11/30/22 02/01/23 02/01/23 His tory capsule CBD Gummies 50 mg 50 hr PO 1XD anxiety 12/10/22 02/01/23 01/30/23 History albuterol sulfate 90 mcg/actuation See Rx Instructions .Route 12/14/22 02/01/23 01/30/23 Rx aerosol inhaler .COMPLEX #8.5 grams aripiprazole 15 mg tablet 15 mg PO DAILY #30 tabs 12/16/22 02/01/23 02/01/23 Rx citalopram 40 mg tablet 40 mg PO DAILY #90 tabs 12/16/22 02/01/23 02/01/23 Rx cyclobenzaprine 10 mg tablet 10 mg PO BEDTIME PRN muscle spasm 12/16/22 02/01/23 01/30/23 Rx #30 tabs trazodone 100 mg tablet 200 mg (2 x 100 mg) PO .HS PRN 12/16/22 02/01/23 02/01/23 Rx insomnia #60 tabs hydralazine 10 mg tablet 10 mg PO BID 01/04/23 02/01/23 02/01/23 History hydroxyzine HCl 50 mg tablet See Rx Instructions .Route 01/20/23 02/01/23 02/01/23 Rx .COMPLEX #90 tabs carboplatin 10 mg/mL intravenous 425 mg (42.5 mL) IV Q21D #45 mL 01/25/23 02/01/23 Unknown Rx solution nivolumab 120 mg/12 mL intravenous 360 mg (36 mL) IV .H0lndvw 12 01/25/23 02/01/23 Unknown Rx solution (Opdivo) months #3 vials pemetrexed 500 mg intravenous 980 mg IV Q21D #1 ea 01/25/23 02/01/23 Unknown Rx powder for solution Allergies Allergy/AdvReac Type Severity Reaction Status Date / Time Penicillins Allergy Severe Anaphylaxis Verified 02/01/23 11:36 morphine Allergy Intermediate ADR-Vomitin Verified 02/01/23 11:36 g naproxen Allergy Intermediate ADR-Vomitin Verified 02/01/23 11:36 g lorazepam [From Ativan] AdvReac Severe Becomes Verified 02/01/23 11:36 aggressive. 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 Hx of nephrolithotomy with removal of calculi Hypertensive crisis Major depressive disorder, recurrent, moderate Missed periods Nicotine dependence, cigarettes, uncomplicated Oral abscess Post-traumatic stress disorder, chronic Psychiatric care Surgical History History of removal of ovarian cyst Hx of cholecystectomy Hx of hernia repair Hx of lithotripsy Family History Other CAD (coronary artery disease) Cancer Hypertension Psychiatric illness Stroke Denies family history of Diabetes Chronic kidney disease (CKD) Social History Smoking and tobacco/nicotine status: former use of tobacco/nicotine Quit status (tobacco/nicotine): has quit using Year quit tobacco: 2022 Former quit date comment: still use nicotine patches Second hand smoke exposure: Yes Alcohol intake: never Caregiver/support person: Yes Lives independently: Yes Household members: significant other Housing: House Current occupational status: employed Female Reproductive History Para: 0 Spontaneous abortions: Yes (all 6 pregnancies) Data Anesthesia Cardiac Studies: Echocardiogram 09/29/22 Echocardiogram Ultrasound 10/22/19
[2023-02-02] MEDS: sodium chloride 0.9% 1,000 ML 30 ML IV (11:06)
[2023-02-02] MEDS: vancomycin 1,000 MG in sodium chloride 0.9% 250 ML 250 MG IV (11:22)
[2023-02-02 11:33] LABS: Blood Urea Nitrogen 12 mg/dL (6-20); Calcium 9.2 mg/dL (8.5-10.5); Carbon Dioxide 18 mmol/L (22-29); Chloride 104 mmol/L (98-107); Glomerular Filtration Rate 67.1 mL/min (90-130); Glucose 96 mg/dL (65-115); Osmolality Calculated 280 mOsm/kg (285-295); Sodium 135 mmol/L (136-145)
[2023-02-02 11:34] LABS: Anion Gap 17.8 (5-19); Potassium 4.8 mmol/L (3.5-5.1)
[2023-02-02] MEDS: lidocaine-epi 2% 20 mL INJ INJECTION (12:58)
[2023-02-02] MEDS: heparin, porcine 1,000 unit/mL INJ 10 mL 10000 UNIT INJECTION ×2 (12:59→13:10)
--- NOTE | 2023-02-02 13:23 | P.OP_ITS ---
Operative Report Date of procedure: February 02, 2023 Pre-op diagnosis: Lung cancer Post-op diagnosis: Same Procedure done: Insertion of Port-A-Cath Implants: Bard Port-A-Cath Surgeon: Timo Ko MD Commercial Loan Manager: LAST OR Staff Estimated blood loss: 10 Complications: None Findings: normal vascular anatomy Brief History: This is a 47-year-old female who had history of lung cancer and requires chemotherapy. I have been asked to place a Port-A-Cath for treatment. Procedure: Patient was brought into the OR. She was placed in the supine position. Sedation was given. The head chest and neck was prepped and draped in the usual sterile fashion. Timeout was conducted. The right IJ vein was identified with ultrasound, local anesthesia was infiltrated and then I cannulated the vein using ultrasound guidance, the needle tip was seen entering the vein and immediate return of blood was noted, a guidewire was advanced into the vein. The needle was removed and guidewire position was verified with ultrasound and fluoroscopy. I then proceeded to create a pocket in the right upper chest about 5 cm below the clavicle. I made this by creating a 3 cm incision in the anterior chest and deepened this incision to subcutaneous tissue, I then created a subcutaneous pocket, I then used knife to create a 5 mm incision at the level of the neck at the point of insertion of the wire. I used a hemostat to create a pocket for the catheter and then I tunneled the catheter using the provided tunneler, the Port-A-Cath was placed on the pocket and was noted to fit properly. The Port-A-Cath catheter was then cut to length under fluoroscopy guidance. Then flushed with heparin saline. I introducer sheath was advanced under fluoroscopy guidance over the wire the wire and the introducer was taken out and the pillow she was left in place, the catheter was then advanced through the peel-off sheath and the peel-off sheath was removed leaving the catheter in place. At this point I tested the Port-A-Cath with good blood return and flushing correctly. I then hep-locked the catheter. The Port-A-Cath was then fixed to the subcutaneous tissue with #3-0 Vicryl I then proceeded to obtain hemostasis and the wound was closed in layers using #3-0 Vicryl for the subcutaneous tissue and #4 Monocryl for the skin the neck wound was closed with 4-0 Monocryl and Dermabond was applied on top of the wounds. The patient tolerated well the procedure and transferred to the PACU in stable condition.
[2023-02-02] MEDS: labetalol 5 mg/mL SDV 20mL 10 MG IVP ×2 (13:32→13:52)
--- NOTE | 2023-02-02 14:30 | ANE.PACU2 ---
Inpatient post-anesthesia follow up: Airway intact: Yes Vital signs: Temperature 97 F Pulse Rate 77 Respiratory Rate 18 Blood Pressure 162/103 Pulse Oximetry 95 Oxygen Delivery Me thod Room Air Oxygen Flow Rate Fraction of Inspir ed Oxygen Hydration adequate: Yes Nausea and vomiting: No Pain level: 1 Mental status: Baseline
== END 2023-02-02 14:27 | disposition home or self-care (01) ==
PROVIDERS: Anesthesiology; PCP Family Medicine; Visit Provider Surgery
PROC: (CPT 36561; principal; 2023-02-02 12:00)
DX: C34.90 Malignant neoplasm of unspecified part of unspecified bronchus or lung (principal); J44.9 Chronic obstructive pulmonary disease, unspecified; I10 Essential (primary) hypertension; E66.01 Morbid (severe) obesity due to excess calories; Z68.35 Body mass index [BMI] 35.0-35.9, adult; Z79.82 Long term (current) use of aspirin; Z86.73 Personal history of transient ischemic attack (TIA), and cerebral infarction without residual deficits; Z79.02 Long term (current) use of antithrombotics/antiplatelets; Z87.891 Personal history of nicotine dependence
CPT/HCPCS: 36561; 36415; 76000; 77001; 80048; C1788; J1644; J2250; J2704; J3010; J3370; J3490; J7030; J7050

== ENCOUNTER 2023-03-14 00:05 | Emergency (ER) | payer BC, SELFPAY ==
[2023-03-14 00:06] VITALS: BP 221/147; PULSE 116; RESP 22; TEMP 37; O2SAT 94
--- NOTE | 2023-03-14 00:22 | XRR_ITS ---
PROCEDURE INFORMATION: Exam: XR Chest Exam date and time: 03/14/2023 12:32 AM Age: 47 years old Clinical indication: Shortness of breath; Prior surgery; Surgery date: 6+ months; Surgery type: Chest port. Gb; Patient HX: C/O SOB. History of lung adenocarcinoma. TECHNIQUE: Imaging protocol: Radiologic exam of the chest. Views: 1 view. COMPARISON: CR (CHEST, ) 12/13/2022 6:23 PM FINDINGS: Tubes, catheters and devices: Right-sided Port-A-Cath with its catheter tip near the upper cavoatrial junction. Lungs: Left upper lobe mass redemonstrated and seen to better advantage on the chest CT dated 11/20/2022. No new focal consolidation. Pleural spaces: Unremarkable. No pleural effusion. No pneumothorax. Heart/Mediastinum: Unremarkable. No cardiomegaly. Bones/joints: Unremarkable. XR/XR chest 1V portable [id number] IMPRESSION: 1. No new focal consolidation. 2. Left upper lobe mass redemonstrated and seen to better advantage on the chest CT dated 11/20/2022.
--- NOTE | 2023-03-14 00:56 | ED_ITS ---
HPI - SOB/Dyspnea 2 General: Chief Complaint: Shortness of Breath/Dyspnea Stated Complaint: SOB Caner PT Time Seen by Provider: 03/14/23 00:16 History of Present Illness: HPI Narrative: 47-year-old female with a history of kiana g cancer. She had her first chemo treatment last week. She is on Levaquin, she had an elevated white blood cell count her follow-up visit. She presents with fever, cough, body aches, chills, headache. Her fianc? has the same symptoms at home. She has some shortness of breath as well, stating I feel like I need a breathing treatment . Associated symptoms: Reports fever(s) and nausea; Deny abdominal pain, chest pain or vomiting Review of Systems 2 Const: Reports: fever(s), chills, body aches and malaise ENMT: Reports: throat pain Card: Denies: chest pain Resp: Reports: dyspnea, non-productive cough and wheezing GI: Reports: nausea; Denies: abdominal pain or vomiting Neuro: Reports: headache(s) Psych: Reports: anxiety PFSH ED 2 PFSH: Medical History Port-A-Cath in place 02/02 Dr. 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 Nicotine dependence, cigarettes, uncomplicated Hx of nephrolithotomy with removal of calculi Major depressive disorder, recurrent, moderate Post-traumatic stress disorder, chronic Generalized anxiety disorder Surgical History History of removal of ovarian cyst Hx of lithotripsy Hx of hernia repair Hx of cholecystectomy Family History Other CAD (coronary artery disease) Cancer Hypertension Psychiatric illness Stroke Denies family history of Diabetes Chronic kidney disease (CKD) Social History Smoking and tobacco/nicotine status: former use of tobacco/nicotine Quit status (tobacco/nicotine): has quit using Year quit tobacco: 2022 Former quit date comment: still use nicotine patches Second hand smoke exposure: Yes Alcohol intake: never Caregiver/support person: Yes Lives independently: Yes Household members: significant other Housing: House Current occupational status: employed Female Reproductive History: Para: 0 Spontaneous abortions: Yes (all 6 pregnancies) Physical Exam 2 Const: GENERAL APPEARANCE: cooperative, anxious and ill appearing (Mildly); not frail appearing HENMT: COMMON NORMALS: normocephalic, atraumatic and Normal external nose present HEAD & SCALP: normocephalic and atraumatic FACE & SINUS: normal facial exam and face symmetric NOSE: Normal external nose present Eye: COMMON NORMALS: Equal, round and reactive pupils present and EOMs intact bilaterally PUPIL: Yes Equal, round and reactive pupils present Neck/C-Spine: GENERAL: Yes trachea midline Chest: CHEST: Yes Symmetrical chest wall rise Resp: COMMON NORMALS: clear to auscultation bilaterally EFFORT & INSPECTION: Yes tachypneic and No labored AUSCULTATION: clear to auscultation bilaterally Cardio: COMMON NORMALS: regular rhythm RATE: tachycardic RHYTHM: regular rhythm GI: COMMON NORMALS: Normal to inspection, nondistended, normoactive bowel sounds present Extremity: COMMON NORMALS: no pedal edema Neuro: ISI COMA SCALE: document GCS findings Isi coma scale eye opening: Spontaneous [place] coma scale verbal response: Orientated [place] coma scale motor response: Obey commands [place] coma scale total score: 15 S ENSORY EXAM: Yes extremities (intact) Psych: COMMON NORMALS: speech normal SPEECH: Yes normal speech Skin: COMMON NORMALS: no rashes or lesions noted GENERAL SKIN EXAM: no rashes or lesions noted Course 2 Vital Signs: Vital signs: Vital Signs Temperature 98.6 F 03/14/23 00:06 Pulse Rate 104 H 03/14/23 01:21 Respiratory Rate 20 H 03/14/23 02:01 Blood Pressure 160/105 03/14/23 01:46 Pulse Oximetry 91 03/14/23 02:01 Oxygen Delivery Me thod Room Air 03/14/23 01:46 MDM - SOB/Dyspnea Medical Decision Making 47-year-old cancer patient with a temperature at home, tachycardia shortness of breath and cough. She also has a headache. Chest x-ray does not reveal consolidation. CBC is normal. BMP shows a sodium 131, otherwise not remarkable. She swabs positive for influenza A. She will be given Tamiflu given her comorbidities. Steroid taper. Albuterol at home. To return for worsening. Stable for discharge otherwise. Lab Data 03/14/23 01:30 03/14/23 00:51 Labs/Radiology: Radiology Impressions Chest X-Ray 03/14/23 00:22 IMPRESSION: 1. No new focal consolidation. 2. Left upper lobe mass redemonstrated and seen to better advantage on the chest CT dated 11/20/2022. Laboratory Results WBC 5.99 10^3/uL (3.29-11.43) 03/14/23 01:30 Corrected WBC Cancelled 03/14/23 00:51 RBC 4.12 10^6/uL (3.85-5.65) 03/14/23 01:30 Hgb 12.40 g/dL (11.27-16.99) 03/14/23 01:30 Hct 37.8 % (36-47) 03/14/23 01:30 MCV 91.7 fl (85-98) 03/14/23 01:30 MCH 30.1 pg (27-33) 03/14/23 01:30 MCHC 32.8 g/dL (30-55) 03/14/23 01:30 RDW 16.6 % (12.1-15.1) H 03/14/23 01:30 Plt Count 237 10^3/cmm (157-399) 03/14/23 01:30 MPV 7.8 fL (7.4-10.4) 03/14/23 01:30 Gran % Cancelled 03/14/23 00:51 Neut % (Auto) 94.0 % 03/14/23 01:30 Lymph % (Auto) 4.5 % 03/14/23 01:30 [place] % (Auto) 0.2 % 03/14/23 01:30 Eos % (Auto) 0.8 % 03/14/23 01:30 Baso % (Auto) 0.0 % 03/14/23 01:30 Neut # (Auto) 5.63 10^3/uL (1.8-7.7) 03/14/23 01:30 Lymph # (Auto) 0.3 10^3/uL (0.8-4.8) L 03/14/23 01:30 [place] # (Auto) 0.0 10^3/uL (0.2-0.9) L 03/14/23 01:30 Eos # (Auto) 0.1 10^3/uL (0.0-0.8) 03/14/23 01:30 Baso # (Auto) 0.0 10^3/uL (0.0-0.1) 03/14/23 01:30 Absolute Gran (auto) Cancelled 03/14/23 00:51 Nucleated RBC % (auto) 0 % 03/14/23 01:30 Nucleated RBCs # 0.0 /100WBC 03/14/23 01:30 Sodium 131 mmol/L (136-145) L 03/14/23 00:51 Potassium 4.2 mmol/L (3.5-5.1) 03/14/23 00:51 Chloride 95 mmol/L (98-107) L 03/14/23 00:51 Carbon Dioxide 24 mmol/L (22-29) 03/14/23 00:51 Anion Gap 16.2 (5-19) 03/14/23 00:51 BUN 18 mg/dL (6-20) 03/14/23 00:51 Creatinine 0.8 mg/dL (0.5-0.9) 03/14/23 00:51 GFR Calculation 76.9 mL/min (90-130) L 03/14/23 00:51 Glucose 113 mg/dL (65-115) 03/14/23 00:51 Calculated Osmolality 275 mOsm/kg (285-295) L 03/14/23 00:51 Lactic Acid 1.1 mmol/L (0.5-2.2) 03/14/23 00:51 Calcium 8.9 mg/dL (8.5-10.5) 03/14/23 00:51 Total Bilirubin 0.6 mg/dL (0.15-1.2) 03/14/23 00:51 AST 16 U/L (0-32) 03/14/23 00:51 ALT 42 U/L (0-33) H 03/14/23 00:51 Alkaline Phosphatase 95 U/L (35-105) 03/14/23 00:51 Total Protein 7.3 g/dL (6.6-8.7) 03/14/23 00:51 Albumin 4.0 g/dL (3.5-5.2) 03/14/23 00:51 Globulin 3.3 g/dL (1.3-4.6) 03/14/23 00:51 Influenza Type A Ag Positive (Negative) H 03/14/23 00:29 Influenza Type B Ag Negative (Negative) 03/14/23 00:29 SARS-CoV-2 Ag (Rapid) negative (Negative) 03/14/23 00:29 All radiology interpretation(s) finalized by discharge Discharge Plan Discharge Patient Disposition: Home Clinical Impression: Influenza A Condition: Stable Prescriptions: New Tamiflu 75 mg capsule 75 mg PO BID 5 Days Qty: 10 0RF Medrol (Dorian) 4 mg tablets,dose pack See Rx Instructions .ROUTE .COMPLEX Qty: 21 0RF Rx Instructions: orally per package directions No Action trazodone 100 mg tablet 200 mg PO .HS PRN (Reason: insomnia) Qty: 60 2RF cyclobenzaprine 10 mg tablet 10 mg PO BEDTIME PRN (Reason: muscle spasm) Qty: 30 2RF aripiprazole 15 mg tablet 15 mg PO DAILY Qty: 30 2RF citalopram 40 mg tablet 40 mg PO DAILY Qty: 90 1RF budesonide-formoterol [Symbicort] 160-4.5 mcg/actuation HFA aerosol inhaler 2 puff inhalation BID Qty: 10.2 3RF clopidogrel [Plavix] 75 mg tablet 75 mg PO DAILY 30 Days Qty: 30 11RF labetalol 100 mg tablet 100 mg PO BID Qty: 60 11RF spironolactone 25 mg tablet 25 mg PO DAILY Qty: 30 10RF nicotine 21-14-7 mg/24 hr patch, TD daily, sequential See Rx Instructions transdermal .COMPLEX Qty: 56 0RF Rx Instructions: apply 1-21 mg NICOTINE PATCH daily for 28 days; follow with 1-14 mg PATCH daily for 14 days, then 1-7mg PATCH daily for 14 days transdermal nicotine (polacrilex) 4 mg lozenge 4 mg buccal Q6H PRN (Reason: nicotine cravings) Qty: 108 2RF omega-3 fatty acids 1,000 mg capsule 1,000 mg PO DAILY CBD Gummies 50 mg bottle 50 hr PO 1XD MDD 1 hydralazine 10 mg tablet 10 mg PO BID levofloxacin 750 mg tablet 750 mg PO DAILY 7 Days Qty: 7 0RF tramadol 50 mg tablet 50 mg PO BID PRN (Reason: pain) Qty: 60 0RF albuterol sulfate 90 mcg/actuation HFA aerosol inhaler See Rx Instructions .ROUTE .COMPLEX Qty: 8.5 1RF Dose Instruction: INHALE TWO PUFFS EVERY 6 HOURS NEEDED FOR SHORTNESS OF BREATH or wheezing Rx Instructions: INHALE TWO PUFFS EVERY 6 HOURS NEEDED FOR SHORTNESS OF BREATH or wheezing hydroxyzine HCl 50 mg tablet See Rx Instructions .ROUTE .COMPLEX Qty: 90 1RF Dose Instruction: take 1- TWO tablets BY MOUTH AT BEDTIME as needed for anxiety Rx Instructions: take 1- TWO tablets BY MOUTH AT BEDTIME as needed for anxiety Opdivo 120 mg/12 mL solution 360 mg IV .[id number] 360 Days Qty: 3 12RF carboplatin 10 mg/mL solution 425 mg IV Q21D Qty: 45 12RF pemetrexed 500 mg recon soln 980 mg IV Q21D Qty: 1 12RF buspirone 10 mg tablet See Rx Instructions .ROUTE .COMPLEX Qty: 60 3RF Dose Instruction: take 1/2 to 1 tablet BY MOUTH TWICE DAILY NEEDED FOR ANXIETY Rx Instructions: take 1/2 to 1 tablet BY MOUTH TWICE DAILY NEEDED FOR ANXIETY lidocaine-prilocaine 2.5-2.5 % cream 1 g topical DIRECTED PRN (Reason: Port-a-Cath) Qty: 30 3RF Rx Instructions: Apply 1 gram to port-a-cath site, 1 hour prior to accessing port. olanzapine [Zyprexa] 10 mg tablet 5 - 10 mg PO DAILY Qty: 30 0RF Rx Instructions: Take for 3 days following chemotherapy aspirin 81 mg Tablet,Delayed Release (Dr/Ec) 81 mg PO DAILY 30 Days Qty: 30 2RF ondansetron 4 mg tablet,disintegrating 4 mg PO BID PRN (Reason: Nausea) Rx Instructions: DISSOLVE ONE TABLET BY MOUTH EVERY TWELVE HOURS NEEDED FOR NAUSEA AND VOMITING ondansetron HCl 4 mg Tablet 4 mg PO QID PRN (Reason: Nausea/vomiting) Qty: 30 3RF prochlorperazine maleate [Compazine] 10 mg tablet 10 mg PO Q4H PRN (Reason: Mild Nausea) Qty: 30 3RF dexamethasone 4 mg tablet 4 mg PO DIRECTED Qty: 24 2RF Rx Instructions: Take 4mg by mouth twice daily x 3 days. Start the day prior to Alimta treatment. folic acid 1 mg tablet 1 mg PO DAILY Qty: 30 5RF Rx Instructions: Folic acid supplementation should start 7 days prior to treatment and continuing for 21 days after the last pemetrexed dose. meloxicam 7.5 mg tablet 7.5 mg PO DAILY Qty: 7 0RF lisinopril 20 mg tablet 40 mg PO DAILY Qty: 90 1RF Discharge Orders: Discharge ED (Routine); Ordered 03/14/23 Ordered By: Paul Deutsch Referrals: Jean Iniguez, [Primary Care Provider] - 1-3 days Patient Instructions: Influenza (ED), Opioid Safety, Pain Management Activity Restrictions/Additional Instructions: Medication as directed. Use your albuterol inhaler every 4 hours while awake today whether you feel short of breath or not, then as needed following. Return for worsening shortness of breath despite treatment, vomiting liquids or medications, other concerning symptoms. Watch your fever closely and treat accordingly. Coding Level of Care Code ED Transportation Maintenance Worker for Scotty Lewis
[2023-03-14] MEDS: lisinopril 20 mg Tablet 40 MG PO (01:09)
[2023-03-14] MEDS: hyDRALAzine 25 mg Tablet PO (01:09)
[2023-03-14] MEDS: dexamethasone 10 mg/mL INJ IVP (01:09)
[2023-03-14] MEDS: labetalol 200 mg Tablet 100 MG PO (01:10)
[2023-03-14 01:12] VITALS: BP 178/124; PULSE 110; O2SAT 91
[2023-03-14 01:16] VITALS: PULSE 108; RESP 18; O2SAT 92
[2023-03-14] MEDS: ipratropium-albuterol 3 mL Neb INHALATION (01:16)
[2023-03-14 01:17] LABS: Influenza A by IFA Positive (Negative); Influenza B by IFA Negative (Negative)
[2023-03-14 01:21] VITALS: PULSE 104; RESP 18; O2SAT 94
[2023-03-14 01:23] LABS: Lactic Sepsis W/Reflex 1.1 mmol/L (0.5-2.2)
[2023-03-14 01:24] LABS: SARS Covid-2 Antigen negative (Negative)
[2023-03-14 01:24] LABS: Alanine Aminotransferase 42 U/L (0-33); Alkaline Phosphatase 95 U/L (35-105); Anion Gap 16.2 (5-19); Aspartate Amino Transferase 16 U/L (0-32); Blood Urea Nitrogen 18 mg/dL (6-20); Calcium 8.9 mg/dL (8.5-10.5); Carbon Dioxide 24 mmol/L (22-29); Chloride 95 mmol/L (98-107); Globulin 3.3 g/dL (1.3-4.6); Glomerular Filtration Rate 76.9 mL/min (90-130); Glucose 113 mg/dL (65-115); Osmolality Calculated 275 mOsm/kg (285-295); Potassium 4.2 mmol/L (3.5-5.1); Sodium 131 mmol/L (136-145); Total Bilirubin 0.6 mg/dL (0.15-1.2); Total Protein 7.3 g/dL (6.6-8.7)
[2023-03-14 01:34] LABS: Eosinophils # 0.1 10^3/uL (0.0-0.8); Eosinophils % 0.8 %; Hematocrit 37.8 % (36-47); Lymphocytes # 0.3 10^3/uL (0.8-4.8); Lymphocytes % 4.5 %; Mean Corpuscular HGB Conc 32.8 g/dL (30-55); Mean Corpuscular Hemoglobin 30.1 pg (27-33); Mean Corpuscular Volume 91.7 fl (85-98); Mean Platelet Volume 7.8 fL (7.4-10.4); Monocytes % 0.2 %; Neutrophils # 5.63 10^3/uL (1.8-7.7); Nucleated Red Blood Cells % 0 %; Platelet Count 237 10^3/cmm (157-399); Red Blood Count 4.12 10^6/uL (3.85-5.65); Red Cell Distribution Width 16.6 % (12.1-15.1); White Blood Count 5.99 10^3/uL (3.29-11.43)
[2023-03-14] MEDS: ondansetron 2 mg/ML SDV 2 mL 4 MG IVP (01:41)
[2023-03-14] MEDS: ketorolac 30 mg/mL INJ 15 MG IVP (01:41)
[2023-03-14 01:46] VITALS: BP 160/105; RESP 20; O2SAT 91
[2023-03-14 02:01] VITALS: RESP 20; O2SAT 91
[2023-03-14 02:03] LABS: Slide Review Slide Review Perform
== END 2023-03-14 02:08 | disposition home or self-care (01) ==
PROVIDERS: Emergency Provider Emergency Medicine; PCP Family Medicine
DX: J10.1 Influenza due to other identified influenza virus with other respiratory manifestations (principal); Z11.52 Encounter for screening for COVID-19; Z79.02 Long term (current) use of antithrombotics/antiplatelets; Z79.82 Long term (current) use of aspirin; Z87.891 Personal history of nicotine dependence
CPT/HCPCS: 71045; 80053; 83605; 85025; 87426; 87804; 94640; 96374; 96375; 99284; J1100; J1642; J1885; J2405

== ENCOUNTER 2023-03-15 15:09 | Emergency (ER) | payer BC, SELFPAY ==
[2023-03-15 15:21] VITALS: BP 103/71; PULSE 141; RESP 18; TEMP 37.7; O2SAT 93; BMI 35.4
--- NOTE | 2023-03-15 15:42 | XRR_ITS ---
PROCEDURE INFORMATION: Exam: XR Chest Exam date and time: 03/15/2023 6:03 PM Age: 47 years old Clinical indication: Shortness of breath; Prior surgery; Surgery date: 1-6 months; Surgery type: Port; Patient HX: Lung CA; Additional info: SOB TECHNIQUE: Imaging protocol: Radiologic exam of the chest. Views: 1 view. COMPARISON: CR (CHEST, ) 03/14/2023 12:32 AM FINDINGS: Tubes, catheters and devices: The right internal jugular Port-A-Cath is stable in position with the tip at the cavoatrial junction. Lungs: Stable small mass in the left suprahilar region. No focal consolidation. No pulmonary edema. Pleural spaces: No pleural effusion. No pneumothorax. Heart/Mediastinum: The cardiac silhouette and mediastinal contours are unremarkable. Vasculature: Stable vascular calcifications in the aorta. Bones/joints: Unremarkable for age. XR/XR chest 1V portable [id number] IMPRESSION: 1. No acute cardiopulmonary process. 2. Stable small mass in the left suprahilar region. 3. Incidental/nonacute findings are listed in the report.
--- NOTE | 2023-03-15 18:06 | ED_ITS ---
HPI - SOB/Dyspnea 2 General: Chief Complaint: Shortness of Breath/Dyspnea Stated Complaint: SOB Time Seen by Provider: 03/15/23 18:01 Source: patient Mode of arrival: ambulatory Limitations: no limitations History of Present Illness: HPI Narrative: 47-year-old female has a history of lung cancer is currently on chemo and immunotherapy she was diagnosed with flu a on Wednesday she has been on Tamiflu along with steroids she states she is still had shortness of breath and has been getting very nervous. She does have albuterol at home as well. Patient's speaking in full since here is not hypoxic she denies any pain has had low-grade fevers. Associated symptoms: Deny abdominal pain, chest pain, fever(s), nausea or vomiting Review of Systems 2 Const: Denies: fever(s), chills, body aches or change in appetite ENMT: Denies: throat pain or dental pain Card: Denies: chest pain Resp: Reports: dyspnea and non-productive cough GI: Denies: abdominal pain, nausea, vomiting or diarrhea Musc: Denies: neck pain or back pain Skin/Breast: Denies: rash Neuro: Denies: headache(s) PFSH ED 2 PFSH: Medical History Port-A-Cath in place 02/02 Dr. 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 Nicotine dependence, cigarettes, uncomplicated Hx of nephrolithotomy with removal of calculi Major depressive disorder, recurrent, moderate Post-traumatic stress disorder, chronic Generalized anxiety disorder Surgical History History of removal of ovarian cyst Hx of lithotripsy Hx of hernia repair Hx of cholecystectomy Family History Other CAD (coronary artery disease) Cancer Hypertension Psychiatric illness Stroke Denies family history of Diabetes Chronic kidney disease (CKD) Social History Smoking and tobacco/nicotine status: former use of tobacco/nicotine Quit status (tobacco/nicotine): has quit using Year quit tobacco: 2022 Former quit date comment: still use nicotine patches Second hand smoke exposure: Yes Alcohol intake: never Caregiver/support person: Yes Lives independently: Yes Household members: significant other Housing: House Current occupational status: employed Female Reproductive History: Para: 0 Spontaneous abortions: Yes (all 6 pregnancies) Physical Exam 2 Const: COMMON NORMALS: no acute distress, patient oriented x3 and healthy appearing HENMT: COMMON NORMALS: normocephalic and atraumatic HEAD & SCALP: n ormocephalic and atraumatic Eye: COMMON NORMALS: Equal, round and reactive pupils present and EOMs intact bilaterally PUPIL: Yes Equal, round and reactive pupils present Neck/C-Spine: COMMON NORMALS: full ROM Chest: COMMONS NORMALS: normal inspection of the chest Resp: COMMON NORMALS: normal respiratory effort, No retractions and No use of accessory muscles AUSCULTATION: wheezes Cardio: COMMON NORMALS: regular rate, regular rhythm and No murmurs present (Cardio) RATE: regular rate RHYTHM: regular rhythm GI: COMMON NORMALS: Normal to inspection, nondistended, normoactive bowel sounds present, Soft to palpation, non-tender and no masses PALPATION: Yes Soft to palpation Extremity: COMMON NORMALS: normal to inspection and full ROM Neuro: COMMON NORMALS: patient oriented x3, moves all extremities and no focal motor deficits Psych: COMMON NORMALS: mental status grossly normal, Normal thought process present and cooperative THOUGHT PROCESS: Normal thought process present Skin: COMMON NORMALS: no rashes or lesions noted and no wounds GENERAL SKIN EXAM: no rashes or lesions noted Course 2 Vital Signs: Vital signs: Vital Signs Temperature 99.9 F H 03/15/23 15:21 Pulse Rate 90 03/15/23 20:02 Respiratory Rate 18 03/15/23 19:55 Blood Pressure 100/64 03/15/23 19:41 Pulse Oximetry 91 03/15/23 19:55 Oxygen Delivery Me thod Room Air 03/15/23 19:55 MDM - SOB/Dyspnea Medical Decision Making Patient presents here with influenza she feels much improved after IV fluids she does have elevated creatinine from baseline likely due to dehydration its mild in nature she states she feels improved would like to go home I feel she is stable for discharge after she was hydrated here with IV fluids x-ray shows no acute abnormalities she is not requiring any oxygen here did inform her she is to follow-up with her PCP and 2 to 4 days to have her creatinine rechecked she is return if worsening she understands agrees to plan. Medical Records I reviewed the patient's medical records. Lab Data I reviewed the patient's lab results. 03/15/23 15:22 03/15/23 15:22 Labs/Radiology: Radiology Impressions Chest X-Ray 03/15/23 15:42 IMPRESSION: 1. No acute cardiopulmonary process. 2. Stable small mass in the left suprahilar region. 3. Incidental/nonacute findings are listed in the report. Laboratory Results WBC 2.65 10^3/uL (3.29-11.43) L 03/15/23 15:22 RBC 4.36 10^6/uL (3.85-5.65) 03/15/23 15:22 Hgb 13.10 g/dL (11.27-16.99) 03/15/23 15:22 Hct 40.3 % (36-47) 03/15/23 15:22 MCV 92.4 fl (85-98) 03/15/23 15:22 MCH 30.0 pg (27-33) 03/15/23 15:22 MCHC 32.5 g/dL (30-55) 03/15/23 15:22 RDW 17.0 % (12.1-15.1) H 03/15/23 15:22 Plt Count 184 10^3/cmm (157-399) 03/15/23 15:22 MPV 8.4 fL (7.4-10.4) 03/15/23 15:22 Neut % (Auto) 76.6 % 03/15/23 15:22 Lymph % (Auto) 18.1 % 03/15/23 15:22 Wetzel % (Auto) 0.4 % 03/15/23 15:22 Eos % (Auto) 3.4 % 03/15/23 15:22 Baso % (Auto) 0.4 % 03/15/23 15:22 Neut # (Auto) 2.03 10^3/uL (1.8-7.7) 03/15/23 15:22 Lymph # (Auto) 0.5 10^3/uL (0.8-4.8) L 03/15/23 15:22 Wetzel # (Auto) 0.0 10^3/uL (0.2-0.9) L 03/15/23 15:22 Eos # (Auto) 0.1 10^3/uL (0.0-0.8) 03/15/23 15:22 Baso # (Auto) 0.0 10^3/uL (0.0-0.1) 03/15/23 15:22 Nucleated RBC % (auto) 0 % 03/15/23 15:22 Nucleated RBCs # 0.0 /100WBC 03/15/23 15:22 Sodium 130 mmol/L (136-145) L 03/15/23 15:22 Potassium 4.6 mmol/L (3.5-5.1) 03/15/23 15:22 Chloride 94 mmol/L (98-107) L 03/15/23 15:22 Carbon Dioxide 22 mmol/L (22-29) 03/15/23 15:22 Anion Gap 18.6 (5-19) 03/15/23 15:22 BUN 40 mg/dL (6-20) H 03/15/23 15:22 Creatinine 2.1 mg/dL (0.5-0.9) H 03/15/23 15:22 GFR Calculation 25.2 mL/min (90-130) L 03/15/23 15:22 Glucose 118 mg/dL (65-115) H 03/15/23 15:22 Calculated Osmolality 281 mOsm/kg (285-295) L 03/15/23 15:22 Calcium 8.5 mg/dL (8.5-10.5) 03/15/23 15:22 Total Bilirubin 0.9 mg/dL (0.15-1.2) 03/15/23 15:22 AST 31 U/L (0-32) 03/15/23 15:22 ALT 68 U/L (0-33) H 03/15/23 15:22 Alkaline Phosphatase 116 U/L (35-105) H 03/15/23 15:22 NT-Pro-B Natriuret Pep 399 pg/mL (0-125) H 03/15/23 15:22 Total Protein 7.2 g/dL (6.6-8.7) 03/15/23 15:22 Albumin 3.8 g/dL (3.5-5.2) 03/15/23 15:22 Globulin 3.4 g/dL (1.3-4.6) 03/15/23 15:22 All radiology interpretation(s) finalized by discharge Discharge Plan Discharge Patient Disposition: Home Clinical Impression: Influenza, Dehydration Condition: Stable Prescriptions: No Action trazodone 100 mg tablet 200 mg PO .HS PRN (Reason: insomnia) Qty: 60 2RF cyclobenzaprine 10 mg tablet 10 mg PO BEDTIME PRN (Reason: muscle spasm) Qty: 30 2RF aripiprazole 15 mg tablet 15 mg PO DAILY Qty: 30 2RF citalopram 40 mg tablet 40 mg PO DAILY Qty: 90 1RF budesonide-formoterol [Symbicort] 160-4.5 mcg/actuation HFA aerosol inhaler 2 puff inhalation BID Qty: 10.2 3RF clopidogrel [Plavix] 75 mg tablet 75 mg PO DAILY 30 Days Qty: 30 11RF labetalol 100 mg tablet 100 mg PO BID Qty: 60 11RF spironolactone 25 mg tablet 25 mg PO DAILY Qty: 30 10RF nicotine 21-14-7 mg/24 hr patch, TD daily, sequential See Rx Instructions transdermal .COMPLEX Qty: 56 0RF Rx Instructions: apply 1-21 mg NICOTINE PATCH daily for 28 days; follow with 1-14 mg PATCH daily for 14 days, then 1-7mg PATCH daily for 14 days transdermal nicotine (polacrilex) 4 mg lozenge 4 mg buccal Q6H PRN (Reason: nicotine cravings) Qty: 108 2RF omega-3 fatty acids 1,000 mg capsule 1,000 mg PO DAILY CBD Gummies 50 mg bottle 50 hr PO 1XD MDD 1 hydralazine 10 mg tablet 10 mg PO BID levofloxacin 750 mg tablet 750 mg PO DAILY 7 Days Qty: 7 0RF tramadol 50 mg tablet 50 mg PO BID PRN (Reason: pain) Qty: 60 0RF albuterol sulfate 90 mcg/actuation HFA aerosol inhaler See Rx Instructions .ROUTE .COMPLEX Qty: 8.5 1RF Dose Instruction: INHALE TWO PUFFS EVERY 6 HOURS NEEDED FOR SHORTNESS OF BREATH or wheezing Rx Instructions: INHALE TWO PUFFS EVERY 6 HOURS NEEDED FOR SHORTNESS OF BREATH or wheezing hydroxyzine HCl 50 mg tablet See Rx Instructions .ROUTE .COMPLEX Qty: 90 1RF Dose Instruction: take 1- TWO tablets BY MOUTH AT BEDTIME as needed for anxiety Rx Instructions: take 1- TWO tablets BY MOUTH AT BEDTIME as needed for anxiety Opdivo 120 mg/12 mL solution 360 mg IV .[id number] 360 Days Qty: 3 12RF carboplatin 10 mg/mL solution 425 mg IV Q21D Qty: 45 12RF pemetrexed 500 mg recon soln 980 mg IV Q21D Qty: 1 12RF buspirone 10 mg tablet See Rx Instructions .ROUTE .COMPLEX Qty: 60 3RF Dose Instruction: take 1/2 to 1 tablet BY MOUTH TWICE DAILY NEEDED FOR ANXIETY Rx Instructions: take 1/2 to 1 tablet BY MOUTH TWICE DAILY NEEDED FOR ANXIETY lidocaine-prilocaine 2.5-2.5 % cream 1 g topical DIRECTED PRN (Reason: Port-a-Cath) Qty: 30 3RF Rx Instructions: Apply 1 gram to port-a-cath site, 1 hour prior to accessing port. olanzapine [Zyprexa] 10 mg tablet 5 - 10 mg PO DAILY Qty: 30 0RF Rx Instructions: Take for 3 days following chemotherapy aspirin 81 mg Tablet,Delayed Release (Dr/Ec) 81 mg PO DAILY 30 Days Qty: 30 2RF ondansetron 4 mg tablet,disintegrating 4 mg PO BID PRN (Reason: Nausea) Rx Instructions: DISSOLVE ONE TABLET BY MOUTH EVERY TWELVE HOURS NEEDED FOR NAUSEA AND VOMITING ondansetron HCl 4 mg Tablet 4 mg PO QID PRN (Reason: Nausea/vomiting) Qty: 30 3RF prochlorperazine maleate [Compazine] 10 mg tablet 10 mg PO Q4H PRN (Reason: Mild Nausea) Qty: 30 3RF dexamethasone 4 mg tablet 4 mg PO DIRECTED Qty: 24 2RF Rx Instructions: Take 4mg by mouth twice daily x 3 days. Start the day prior to Alimta treatment. folic acid 1 mg tablet 1 mg PO DAILY Qty: 30 5RF Rx Instructions: Folic acid supplementation should start 7 days prior to treatment and continuing for 21 days after the last pemetrexed dose. meloxicam 7.5 mg tablet 7.5 mg PO DAILY Qty: 7 0RF lisinopril 20 mg tablet 40 mg PO DAILY Qty: 90 1RF Tamiflu 75 mg capsule 75 mg PO BID 5 Days Qty: 10 0RF Medrol (Dorian) 4 mg tablets,dose pack See Rx Instructions .ROUTE .COMPLEX Qty: 21 0RF Rx Instructions: orally per package directions Discharge Orders: Discharge ED (Routine); Ordered 03/15/23 Ordered By: Janee Hi Referrals: Jean Iniguez DO [Primary Care Provider] - 1-3 days Discharge Diet: Advance as tolerated Discharge Activity: Resume usual activity Patient Instructions: Influenza (ED) Coding Level of Care Code ED Mechanic Insulator for Scotty Leiws
[2023-03-15 19:29] LABS: Basophils % 0.4 %; Eosinophils # 0.1 10^3/uL (0.0-0.8); Eosinophils % 3.4 %; Hematocrit 40.3 % (36-47); Lymphocytes # 0.5 10^3/uL (0.8-4.8); Lymphocytes % 18.1 %; Mean Corpuscular HGB Conc 32.5 g/dL (30-55); Mean Corpuscular Volume 92.4 fl (85-98); Mean Platelet Volume 8.4 fL (7.4-10.4); Monocytes % 0.4 %; Neutrophils # 2.03 10^3/uL (1.8-7.7); Neutrophils % 76.6 %; Nucleated Red Blood Cells % 0 %; Platelet Count 184 10^3/cmm (157-399); Red Blood Count 4.36 10^6/uL (3.85-5.65); White Blood Count 2.65 10^3/uL (3.29-11.43)
[2023-03-15 19:41] VITALS: BP 100/64; PULSE 95; RESP 24; O2SAT 91
[2023-03-15] MEDS: sodium chloride 0.9% 1,000 ML 999 ML IV (19:41)
[2023-03-15] MEDS: acetaminophen 500 mg Tablet 1000 MG PO (19:52)
[2023-03-15 19:55] VITALS: PULSE 99; RESP 18; O2SAT 91
[2023-03-15] MEDS: ipratropium-albuterol 3 mL Neb INHALATION (19:55)
[2023-03-15 20:01] LABS: Alanine Aminotransferase 68 U/L (0-33); Albumin Level 3.8 g/dL (3.5-5.2); Alkaline Phosphatase 116 U/L (35-105); Anion Gap 18.6 (5-19); Aspartate Amino Transferase 31 U/L (0-32); Blood Urea Nitrogen 40 mg/dL (6-20); Calcium 8.5 mg/dL (8.5-10.5); Carbon Dioxide 22 mmol/L (22-29); Chloride 94 mmol/L (98-107); Globulin 3.4 g/dL (1.3-4.6); Glomerular Filtration Rate 25.2 mL/min (90-130); Glucose 118 mg/dL (65-115); NT Pro B Type Natriuretic Pept 399 pg/mL (0-125); Osmolality Calculated 281 mOsm/kg (285-295); Potassium 4.6 mmol/L (3.5-5.1); Sodium 130 mmol/L (136-145); Total Bilirubin 0.9 mg/dL (0.15-1.2); Total Protein 7.2 g/dL (6.6-8.7)
[2023-03-15 20:02] VITALS: PULSE 90
[2023-03-15 20:34] VITALS: BP 119/69; PULSE 95; RESP 20; O2SAT 94
== END 2023-03-15 20:36 | disposition home or self-care (01) ==
PROVIDERS: Emergency Provider Emergency Medicine; PCP Family Medicine
DX: J10.1 Influenza due to other identified influenza virus with other respiratory manifestations (principal); E86.0 Dehydration; Z79.02 Long term (current) use of antithrombotics/antiplatelets; Z79.82 Long term (current) use of aspirin; Z85.118 Personal history of other malignant neoplasm of bronchus and lung; Z92.21 Personal history of antineoplastic chemotherapy; Z87.891 Personal history of nicotine dependence
CPT/HCPCS: 71045; 80053; 83880; 85025; 94640; 96361; 96374; 99284; J1642; J7030

== ENCOUNTER 2023-03-17 15:13 | Inpatient (IN) | payer BC, SELFPAY ==
[2023-03-17 15:27] VITALS: BMI 36.5
--- NOTE | 2023-03-17 15:31 | PM.HP ---
Providers/Chief Complaint Admitting Physician: Lv Villarreal MD Primary Care Provider: Jean Iniguez DO Chief Complaint: Neutropenia/ Fever/ Hypoxia History of Present Illness Leann Monte is a 47 year old female who presents as a direct admit from oncology clinic. She has large cell lung cancer, currently being treated pemetrexed/carboplatinum/nivolumab with last treatment being March 09. She became ill about 6 days ago with some fever, and had been seen in the ER and diagnosed with influenza A around the . She was prescribed Tamiflu but did not keep taking it as she thought it might be causing some vomiting and diarrhea that started. She reports some shortness of breath, cough, wheezing, vomiting. She has had loose stools, approximately 10 a day. She has had no blood in her stool or black or tarry stools. When seen by oncology today she received Solu-Medrol, a DuoNeb treatment, was placed on oxygen, and got 1 L fluids. Secondary to her markedly low neutrophil count, reported fever at home, hypoxia it was thought she would need hospitalization for IV antibiotics, IV steroids. Patient reports she aches all over. She denies any burning with urination. Review of Systems General: Reports: 10 or more systems reviewed and unremarkable except in HPI and below Card: Denies: chest pain Resp: Reports: dyspnea and non-productive cough GI: Reports: nausea, vomiting and diarrhea Medications/Allergies Home Medications Medication Instructions Recorded Confirmed Last Taken Type aspirin 81 mg tablet,delayed 81 mg PO DAILY 30 days #30 tabs 10/01/22 03/17/23 01/30/23 Rx release budesonide-formoterol HFA 160 2 puff inhalation BID #10.2 grams 10/13/22 03/17/23 02/01/23 Rx mcg-4.5 mcg/actuation aerosol inhaler (Symbicort) lisinopril 20 mg tablet 40 mg (2 x 20 mg) PO DAILY #90 tabs 10/17/22 03/17/23 02/01/23 Rx clopidogrel 75 mg tablet (Plavix) 75 mg PO DAILY 30 days #30 tabs 10/26/22 03/17/23 01/27/23 Rx labetalol 100 mg tablet 100 mg PO BID #60 tabs 10/26/22 03/17/23 02/02/23 08:00 Rx nicotine (polacrilex) 4 mg buccal 4 mg buccal Q6H PRN nicotine 10/26/22 03/17/23 11/22/22 Rx lozenge cravings #108 ea nicotine See Rx Instructions transdermal 10/26/22 03/17/23 02/01/23 Rx 21mg/24hr-14mg/24hr-7mg/24hr daily .COMPLEX #56 patches transderm patches,sequentl spironolactone 25 mg tablet 25 mg PO DAILY #30 tabs 10/26/22 03/17/23 02/01/23 Rx ondansetron 4 mg disintegrating 4 mg PO BID PRN Nausea 11/20/22 03/17/23 01/20/23 History tablet omega-3 fatty acids 1,000 mg 1,000 mg PO DAILY 11/30/22 03/17/23 02/01/23 History capsule CBD Gummies 50 mg 50 hr PO 1XD anxiety 12/10/22 03/17/23 01/30/23 History albuterol sulfate 90 mcg/actuation See Rx Instructions .Route 12/14/22 03/17/23 01/30/23 Rx aerosol inhaler .COMPLEX #8.5 grams aripiprazole 15 mg tablet 15 mg PO DAILY #30 tabs 12/16/22 03/17/23 02/01/23 Rx citalopram 40 mg tablet 40 mg PO DAILY #90 tabs 12/16/22 03/17/23 02/01/23 Rx cyclobenzaprine 10 mg tablet 10 mg PO BEDTIME PRN muscle spasm 12/16/22 03/17/23 01/30/23 Rx #30 tabs trazodone 100 mg tablet 200 mg (2 x 100 mg) PO .HS PRN 12/16/22 03/17/23 02/01/23 Rx insomnia #60 tabs hydralazine 10 mg tablet 10 mg PO BID 01/04/23 03/17/23 02/01/23 History hydroxyzine HCl 50 mg tablet See Rx Instructions .Route 01/20/23 03/17/23 02/01/23 Rx .COMPLEX #90 tabs carboplatin 10 mg/mL intravenous 425 mg (42.5 mL) IV Q21D #45 mL 01/25/23 03/17/23 Unknown Rx solution nivolumab 120 mg/12 mL intravenous 360 mg (36 mL) IV .[id number] 01/25/23 03/17/23 Unknown Rx solution (Opdivo) months #3 vials pemetrexed 500 mg intravenous 980 mg IV Q21D #1 ea 01/25/23 03/17/23 Unknown Rx powder for solution meloxicam 7.5 mg tablet 7.5 mg PO DAILY #7 tabs 02/02/23 03/17/23 Unknown Rx buspirone 10 mg tablet See Rx Instructions .Route 02/03/23 03/17/23 Unknown Rx .COMPLEX #60 tabs dexamethasone 4 mg tablet 4 mg PO DIRECTED Chemotherapy 02/26/23 03/17/23 Unknown Rx #24 tabs folic acid 1 mg tablet 1 mg PO DAILY #30 tabs 02/26/23 03/17/23 Unknown Rx ondansetron HCl 4 mg tablet 4 mg PO QID PRN Nausea/vomiting 02/26/23 03/17/23 Unknown Rx #30 tabs prochlorperazine maleate 10 mg 10 mg PO Q4H PRN Mild Nausea #30 02/26/23 03/17/23 Unknown Rx tablet (Compazine) tabs levofloxacin 750 mg tablet 750 mg PO DAILY 7 days #7 tabs 03/09/23 03/17/23 Unknown Rx lidocaine-prilocaine 2.5 %-2.5 % 1 g topical DIRECTED PRN 03/09/23 03/17/23 Unknown Rx topical cream Port-a-Cath #30 grams olanzapine 10 mg tablet (Zyprexa) 5 - 10 mg (0.5 - 1 x 10 mg) PO 03/09/23 03/17/23 Unknown Rx DAILY #30 tabs tramadol 50 mg tablet 50 mg PO BID PRN pain #60 tabs 03/09/23 03/17/23 Unknown Rx methylprednisolone 4 mg tablets in See Rx Instructions PO .COMPLEX 03/14/23 03/17/23 Unknown Rx a dose pack (Medrol (Dorian)) #21 ea oseltamivir 75 mg capsule (Tamiflu) 75 mg PO BID 5 days #10 caps 03/14/23 03/17/23 Unknown Rx Allergies Allergy/AdvReac Type Severity Reaction Status Date / Time Penicillins Allergy Severe Anaphylaxis Verified 03/17/23 08:24 morphine Allergy Intermediate ADR-Vomitin Verified 03/17/23 08:24 g naproxen Allergy Intermediate ADR-Vomitin Verified 03/17/23 08:24 g lorazepam [From Ativan] AdvReac Severe Becomes Verified 03/17/23 08:24 aggressive. EGGS AdvReac Severe N & V, Uncoded 03/17/23 08:24 Stomach pain, Throat swells shut flu shot AdvReac Severe N & V, Uncoded 03/17/23 08:24 Stomach pain, Throat swells shut nuts AdvReac Severe Vomiting & Uncoded 03/17/23 08:24 throat swells PFSH Acute PFSH: Medical History (Updated 03/17/23 @ 15:48 by Lv Villarreal MD) Lung cancer COPD (chronic obstructive pulmonary disease) Acute lacunar infarction Carotid artery, internal, occlusion Essential hypertension Port-A-Cath in place 02/02 Dr. 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 Nicotine dependence, cigarettes, uncomplicated Hx of nephrolithotomy with removal of calculi Major depressive disorder, recurrent, moderate Post-traumatic stress disorder, chronic Generalized anxiety disorder Surgical History History of removal of ovarian cyst Hx of lithotripsy Hx of hernia repair Hx of cholecystectomy Family History Other CAD (coronary artery disease) Cancer Hypertension Psychiatric illness Stroke Denies family history of Diabetes Chronic kidney disease (CKD) Social History Smoking and tobacco/nicotine status: former use of tobacco/nicotine Quit status (tobacco/nicotine): has quit using Year quit tobacco: 2022 Former quit date comment: still use nicotine patches Second hand smoke exposure: Yes Alcohol intake: never Caregiver/support person: Yes Lives independently: Yes Household members: significant other Housing: House Current occupational status: employed Female Reproductive History: Para: 0 Spontaneous abortions: Yes (all 6 pregnancies) Physical Exam Narrative: General exam is a female, in no distress, on 3 L of oxygen HEENT: Atraumatic normocephalic. Pupils equally round. Oropharynx is clear. No ulcers noted. Neck is supple no lymphadenopathy thyromegaly Cardiovascular regular rate and rhythm without murmur, port is noted Lungs bilateral expiratory wheezes. No rhonchi. Abdomen is soft nontender with positive bowel sounds. No obvious organomegaly exam is deferred Extremities no cyanosis, edema, cap refill brisk Skin no rash Neuro no obvious focal deficits Data Other data: CMP, CBC from oncology clinic reviewed. Previous x-rays reviewed from ER visit 2 days ago as well is all laboratory. A&P Assessment and plan (1) Fever and neutropenia: Patient presents with fever and neutropenia She recently got chemotherapy on March 09 Initiate Neupogen Nystatin oral suspension Cefepime, vancomycin Blood cultures Check chest x-ray and urinalysis Hydration (2) Hypoxia: Check chest x-ray Provide oxygen DuoNeb every 6 hours, budesonide twice daily IV steroids 60 mg daily. She is wheezing and officially could have a acute COPD exacerbation or this could be manifestation of her influenza (3) Influenza A: See above Initiate Tamiflu 75 mg twice daily. She did not take many doses as she thought this might be causing her vomiting or diarrhea after her diagnosis on the . (4) Diarrhea: Cannot completely rule out Mab induced diarrhea C. difficile, stool culture Solu-Medrol 60 mg IV every 24 hours. (5) Hyponatremia: Appears to have been present for a while No evidence of hypotension currently Monitor closely MRI of head did not demonstrate any mass Recent TSH was normal. Random cortisol level appears low, will repeat. (6) COPD (chronic obstructive pulmonary disease): DuoNeb every 6 hours Budesonide twice daily Solu-Medrol 60 mg IV every 24 hours Oxygen as needed, wean as tolerated Plan History of carotid occlusion. Continue Plavix. Consider statin if she is not already on. Her medicine list has not yet reconciled. Full code Lovenox for DVT prophylaxis Attestations Medical Necessity Statement*: Will require greater than 2 midnight stay for evaluation and treatment of fever with neutropenia requiring IV antibiotics as well as hypoxia requiring exploration Diagnoses Fever and neutropenia D70.9; R50.81 Hypoxia R09.02 Influenza A J10.1 Diarrhea R19.7 Hyponatremia E87.1 COPD (chronic obstructive pulmonary disease) J44.9 Time Spent (min) 64
--- NOTE | 2023-03-17 15:40 | XRR_ITS ---
PROCEDURE INFORMATION: Exam: XR Chest Exam date and time: 03/17/2023 4:14 PM Age: 47 years old Clinical indication: Shortness of breath; Additional info: Hypoxia TECHNIQUE: Imaging protocol: Radiologic exam of the chest. Views: 1 view. COMPARISON: CR XR chest 1V portable [id number] 03/15/2023 6:03 PM FINDINGS: Tubes, catheters and devices: Port catheter remains in place. Lungs: Subtle left suprahilar mass like opacity is unchanged. Increased prominence of reticular lung markings in the right base could be due to developing infiltrate. Pleural spaces: Unremarkable. No pleural effusion. No pneumothorax. Heart/Mediastinum: Unremarkable. No cardiomegaly. Bones/joints: Unremarkable. XR/XR chest 1V portable [id number] IMPRESSION: 1. Subtle left suprahilar mass like opacity is unchanged. 2. Increased prominence of reticular lung markings in the right base could be due to developing infiltrate. Clinical correlation and follow-up are recommended.
[2023-03-17 16:30] VITALS: PULSE 104; RESP 22; O2SAT 92
[2023-03-17 16:46] VITALS: BP 136/84; PULSE 104; RESP 18; TEMP 36.8; O2SAT 90
[2023-03-17] MEDS: ondansetron 2 mg/ML SDV 2 mL 4 MG IVP (17:17)
[2023-03-17] MEDS: pantoprazole 40 mg SDV IVP (17:17)
[2023-03-17] MEDS: enoxaparin 40 mg/0.4 mL Syringe SUBCUT (17:17)
[2023-03-17] MEDS: cefepime 2,000 MG in sodium chloride 0.9% (plus) 50 ML 100 MG IV (17:17)
[2023-03-17] MEDS: sodium chloride 0.9% 1,000 ML 125 ML IV (17:17)
[2023-03-17] MEDS: nystatin 100,000 unit/mL UDC 5 mL 500000 UNIT PO ×2 (17:18→20:28)
[2023-03-17] MEDS: loratadine 10 mg Tablet PO (17:18)
[2023-03-17] MEDS: oseltamivir phosphate 75 mg Capsule PO (17:18)
[2023-03-17] MEDS: filgrastim-sndz 480 mcg/0.8 mL Syringe SUBCUT (17:30)
[2023-03-17] MEDS: vancomycin 1,250 MG/250 ML PIGGYBACK 250 MG IV (18:08)
[2023-03-17 20:00] VITALS: BP 125/84; PULSE 105; RESP 18; TEMP 36.6; O2SAT 93
[2023-03-17 20:45] VITALS: PULSE 103; RESP 18; O2SAT 91
[2023-03-17] MEDS: ipratropium-albuterol 3 mL Neb INHALATION (20:47)
[2023-03-17] MEDS: budesonide 0.5 mg/2 mL Neb INHALATION (20:47)
[2023-03-17 20:55] VITALS: PULSE 109
[2023-03-17] MEDS: trazodone 100 mg Tablet 200 MG PO (22:21)
[2023-03-17 23:42] VITALS: BP 119/87; PULSE 99; RESP 17; TEMP 36.9; O2SAT 93
[2023-03-18] VITALS (11 sets, daily range): BP systolic 114–166; BP diastolic 78–94; PULSE 93–107; RESP 16–21; TEMP 36.5–37.4; O2SAT 86–93; BMI 38.0
[2023-03-18] MEDS: sodium chloride 0.9% 1,000 ML 125 ML IV ×3 (01:07→20:21)
[2023-03-18] MEDS: ipratropium-albuterol 3 mL Neb INHALATION ×4 (02:27→19:38)
[2023-03-18] MEDS: pantoprazole 40 mg SDV IVP (03:44)
[2023-03-18] MEDS: cefepime 2,000 MG in sodium chloride 0.9% (plus) 50 ML 100 MG IV ×2 (05:07→17:19)
[2023-03-18 05:41] LABS: Hematocrit 32.2 % (36-47); Lymphocytes # 0.7 10^3/uL (0.8-4.8); Lymphocytes % 43.6 %; Mean Corpuscular HGB Conc 32.3 g/dL (30-55); Mean Corpuscular Hemoglobin 30.3 pg (27-33); Mean Corpuscular Volume 93.9 fl (85-98); Mean Platelet Volume 9.7 fL (7.4-10.4); Monocytes # 0.1 10^3/uL (0.2-0.9); Monocytes % 4.7 %; Neutrophils % 50.4 %; Nucleated Red Blood Cells % 0 %; Platelet Count 78 10^3/cmm (157-399); Red Blood Count 3.43 10^6/uL (3.85-5.65); Red Cell Distribution Width 17.1 % (12.1-15.1); White Blood Count 1.49 10^3/uL (3.29-11.43)
[2023-03-18] MEDS: vancomycin 1,250 MG/250 ML PIGGYBACK 250 MG IV ×2 (05:51→18:14)
[2023-03-18 06:03] LABS: Alanine Aminotransferase 31 U/L (0-33); Albumin Level 2.9 g/dL (3.5-5.2); Alkaline Phosphatase 84 U/L (35-105); Aspartate Amino Transferase 17 U/L (0-32); Blood Urea Nitrogen 22 mg/dL (6-20); Carbon Dioxide 20 mmol/L (22-29); Chloride 109 mmol/L (98-107); Glomerular Filtration Rate 67.1 mL/min (90-130); Glucose 110 mg/dL (65-115); Osmolality Calculated 288 mOsm/kg (285-295); Sodium 137 mmol/L (136-145); Total Bilirubin 0.4 mg/dL (0.15-1.2); Total Protein 5.9 g/dL (6.6-8.7)
[2023-03-18 06:24] LABS: Neutrophils # 0.75 10^3/uL (1.8-7.7)
[2023-03-18] MEDS: methylPREDNISolone sod succ 125 mg/2 mL INJ 60 MG IVP (08:19)
[2023-03-18] MEDS: lisinopril 20 mg Tablet 40 MG PO (08:20)
[2023-03-18] MEDS: folic acid 1 mg Tablet PO (08:20)
[2023-03-18] MEDS: citalopram 20 mg Tablet 40 MG PO (08:20)
[2023-03-18] MEDS: labetalol 200 mg Tablet 100 MG PO (08:20)
[2023-03-18] MEDS: ARIPiprazole 10 mg Tablet 15 MG PO (08:21)
[2023-03-18] MEDS: nystatin 100,000 unit/mL UDC 5 mL 500000 UNIT PO ×4 (08:21→20:21)
[2023-03-18] MEDS: clopidogrel 75 mg Tablet PO (08:21)
[2023-03-18] MEDS: loratadine 10 mg Tablet PO (08:21)
[2023-03-18] MEDS: oseltamivir phosphate 75 mg Capsule PO ×2 (08:21→17:18)
[2023-03-18] MEDS: aspirin 81 mg EC Tablet PO (08:21)
[2023-03-18] MEDS: budesonide 0.5 mg/2 mL Neb INHALATION ×2 (08:55→19:38)
--- NOTE | 2023-03-18 09:51 | P.PN_ITS ---
Subjective 2 Subjective: Leann reports that she feels a little bit better. Still wheezing. No diarrhea. No abdominal pain. No fevers were noted overnight. Medications: Reviewed: Yes Vitals/I&O/Wt Last Vital Signs Temp 98.1 F 03/18/23 07:58 Pulse 99 03/18/23 09:04 Resp 16 03/18/23 08:55 BP 142/94 03/18/23 07:58 Pulse Ox 93 03/18/23 09:04 O2 Del Method Nasal Cannula 03/18/23 08:55 O2 Flow Rate 3 03/18/23 09:04 03/17/23 03/18/23 03/18/23 22:59 06:59 14:59 Intake Total 780 / 780 1279.167 / 2059.167 360 / 360 Output Total 250 / 250 300 / 550 500 / 500 Balance 530 / 530 979.167 / 1509.167 -140 / -140 Weight last 48 hrs Weight 97.432 kg Weight 93.44 kg Physical Exam 2 Narrative: General exam no distress, still on 3 L Neck is supple no lymphadenopathy thyromegaly Cardiovascular regular rate and rhythm without murmur, port is noted Lungs bilateral expiratory wheezes. No rhonchi. Abdomen is soft nontender with positive bowel sounds. No obvious organomegaly Extremities no cyanosis, edema, cap refill brisk Data 03/18/23 05:17 03/18/23 05:17 A&P Assessment and plan (1) Fever and neutropenia: Patient presents with fever and neutropenia She recently got chemotherapy on March 09 I gave her Neupogen yesterday. ANC 750 today. Platelet count has decreased to 78,000. Nystatin oral suspension Continue cefepime, vancomycin Blood cultures have been drawn Chest x-ray question early right lower lobe infiltrate. Urinalysis negative Continue hydration (2) Hypoxia: Wean oxygen as tolerated DuoNeb every 6 hours, budesonide twice daily IV steroids 60 mg daily. She is wheezing and officially could have a acute COPD exacerbation or this could be manifestation of her influenza (3) Influenza A: See above Continue Tamiflu (4) Diarrhea: Cannot completely rule out Mab induced diarrhea C. difficile, stool culture pending but diarrhea has now gone away Solu-Medrol 60 mg IV every 24 hours. (5) Hyponatremia: Appears to have been present for a while No evidence of hypotension currently Monitor closely MRI of head did not demonstrate any mass Recent TSH was normal. Random cortisol level appears low, will repeat. (6) COPD (chronic obstructive pulmonary disease): DuoNeb every 6 hours Budesonide twice daily Solu-Medrol 60 mg IV every 24 hours Oxygen as needed, wean as tolerated Plan History of carotid occlusion. Continue Plavix. Consider statin if she is not already on. Her medicine list has not yet reconciled. CBC, CMP daily in the significantly ill patient who has not yet had improvement from a respiratory standpoint who is also on vancomycin a potentially renal toxic medication that requires daily monitoring. Full code Lovenox for DVT prophylaxis Attestations 2 Medical Necessity Statement*: Needs continued hospitalization for IV antibiotics for possible infection, hypoxia and concern of COPD exacerbation. Diagnoses Fever and neutropenia D70.9; R50.81 Hypoxia R09.02 Influenza A J10.1 Diarrhea R19.7 Hyponatremia E87.1 COPD (chronic obstructive pulmonary disease) J44.9 Time Spent (min) 24
[2023-03-18 10:26] LABS: Add Urine Microscopic? YES; Bilirubin Urine Neg (Negative); Blood Urine Neg (Negative); Glucose Urine UA Norm (Normal); Ketones Urine Negative (Negative); Leukocyte Esterase Urine Negative (Negative); Nitrate Urine Negative (Negative); Protein Urine Trace (Negative); Specific Gravity, Urine 1.015 (1.005-1.030); Urine Appearance Clear (CLEAR); Urine Color Yellow (Yellow); Urobilinogen Urine Norm (Negative); pH Urine 6 (5-7)
[2023-03-18 10:37] LABS: Bacteria Urine R /hpf; Mucus Urine TRACE /hpf; Squamous Epithelial Cell Urine 0-4 /hpf (0-5); WBC Urine 0-4 /hpf (0-5)
[2023-03-18 10:38] LABS: Add Urine Culture? No; Other Casts Urine WBC CAST 0-4 /lpf
[2023-03-18] MEDS: pantoprazole DR 40 mg Tablet PO (17:18)
[2023-03-18] MEDS: enoxaparin 40 mg/0.4 mL Syringe SUBCUT (17:19)
[2023-03-18] MEDS: ondansetron 2 mg/ML SDV 2 mL 4 MG IVP (17:21)
[2023-03-18] MEDS: trazodone 100 mg Tablet 200 MG PO (20:20)
[2023-03-19] VITALS (12 sets, daily range): BP systolic 154–178; BP diastolic 83–112; PULSE 90–101; RESP 15–21; TEMP 36.4–36.8; O2SAT 86–94
[2023-03-19] MEDS: ipratropium-albuterol 3 mL Neb INHALATION ×4 (03:25→20:33)
[2023-03-19] MEDS: cefepime 2,000 MG in sodium chloride 0.9% (plus) 50 ML 100 MG IV ×2 (04:10→18:11)
[2023-03-19] MEDS: sodium chloride 0.9% 1,000 ML 125 ML IV (04:10)
[2023-03-19 05:34] LABS: Basophils % 0.6 %; Eosinophils % 1.1 %; Hematocrit 30.7 % (36-47); Lymphocytes % 53.6 %; Mean Corpuscular HGB Conc 31.9 g/dL (30-55); Mean Corpuscular Volume 93.9 fl (85-98); Mean Platelet Volume 10.5 fL (7.4-10.4); Monocytes # 0.1 10^3/uL (0.2-0.9); Nucleated Red Blood Cells % 0 %; Platelet Count 53 10^3/cmm (157-399); Red Blood Count 3.27 10^6/uL (3.85-5.65); Red Cell Distribution Width 17.2 % (12.1-15.1); White Blood Count 1.81 10^3/uL (3.29-11.43)
[2023-03-19 05:53] LABS: Vancomycin Trough 15.9 ug/mL (10-15)
[2023-03-19 05:55] LABS: Alanine Aminotransferase 28 U/L (0-33); Alkaline Phosphatase 75 U/L (35-105); Anion Gap 14.5 (5-19); Aspartate Amino Transferase 18 U/L (0-32); Blood Urea Nitrogen 20 mg/dL (6-20); Calcium 7.8 mg/dL (8.5-10.5); Carbon Dioxide 20 mmol/L (22-29); Chloride 111 mmol/L (98-107); Globulin 2.3 g/dL (1.3-4.6); Glomerular Filtration Rate 67.1 mL/min (90-130); Glucose 84 mg/dL (65-115); Osmolality Calculated 294 mOsm/kg (285-295); Potassium 4.5 mmol/L (3.5-5.1); Sodium 141 mmol/L (136-145); Total Bilirubin 0.3 mg/dL (0.15-1.2); Total Protein 5.3 g/dL (6.6-8.7)
[2023-03-19] MEDS: vancomycin 1,250 MG/250 ML PIGGYBACK 250 MG IV ×2 (06:04→18:12)
[2023-03-19 06:12] LABS: Slide Review Slide Review Perform
[2023-03-19 06:13] LABS: Neutrophils # 0.69 10^3/uL (1.8-7.7)
[2023-03-19] MEDS: budesonide 0.5 mg/2 mL Neb INHALATION ×2 (08:38→20:33)
--- NOTE | 2023-03-19 08:45 | P.PN_ITS ---
Subjective 2 Subjective: # Reports she feels a little bit better but is still short of breath. She is still on about 3 L of oxygen. No chest pain, abdominal pain, or diarrhea. Medications: Reviewed: Yes Vitals/I&O/Wt Last Vital Signs Temp 98.2 F 03/19/23 04:00 Pulse 101 H 03/19/23 08:38 Resp 20 H 03/19/23 08:38 BP 154/86 03/19/23 04:00 Pulse Ox 92 03/19/23 08:38 O2 Del Method Nasal Cannula 03/19/23 08:38 O2 Flow Rate 3 03/19/23 08:38 03/18/23 03/19/23 03/19/23 22:59 06:59 14:59 Intake Total 1572.5 / 3172.5 1027.083 / 4199.583 250 / 250 Output Total 1100 / 1600 600 / 2200 Balance 472.5 / 1572.5 427.083 / 1999.583 250 / 250 Weight last 48 hrs Weight 99.11 kg Weight 97.432 kg Weight 93.44 kg Physical Exam 2 Narrative: General exam no distress Neck is supple no lymphadenopathy thyromegaly Cardiovascular regular rate and rhythm without murmur, port is noted Lungs diminished breath sounds with no significant wheezing today. Abdomen is soft nontender with positive bowel sounds. No obvious organomegaly Extremities no cyanosis, edema, cap refill brisk Data 03/19/23 05:24 03/19/23 05:24 Micro: Microbiology 03/17/23 16:11 Blood Culture - Preliminary Blood 03/17/23 16:00 Blood Culture - Preliminary Blood A&P Assessment and plan (1) Fever and neutropenia: Patient presents with fever and neutropenia She recently got chemotherapy on March 09 Received Neupogen March 17 with good response. Neutrophil count slightly decreased from yesterday but I expect this to increase further tomorrow as her white blood cell count is increasing. Platelets have decreased. As they are 53,000 we will discontinue anticoagulation currently Nystatin oral suspension Continue cefepime, vancomycin Blood cultures have been drawn Chest x-ray question early right lower lobe infiltrate. Urinalysis negative Discontinue hydration currently. She is taking p.o. excellently Blood cultures negative to date (2) Hypoxia: Wean oxygen as tolerated DuoNeb every 6 hours, budesonide twice daily Change IV steroids to prednisone 40 mg daily. She is wheezing and officially could have a acute COPD exacerbation or this could be manifestation of her influenza (3) Influenza A: See above Continue Tamiflu (4) Diarrhea: Cannot completely rule out Mab induced diarrhea. However this is doubtful as diarrhea went rapidly away. She is currently on prednisone 40 mg a day for COPD exacerbation. C. difficile, stool culture pending but diarrhea has now gone away (5) Hyponatremia: Normal today No evidence of hypotension currently Monitor closely MRI of head did not demonstrate any mass Recent TSH was normal. Random cortisol level appropriate (6) COPD (chronic obstructive pulmonary disease): DuoNeb every 6 hours Budesonide twice daily Change Solu-Medrol to prednisone Wean oxygen Plan History of carotid occlusion. Continue Plavix. Consider statin if she is not already on. Her medicine list has not yet reconciled. CBC, CMP daily in the significantly ill patient who has not yet had improvement from a respiratory standpoint who is also on vancomycin a potentially renal toxic medication that requires daily monitoring. Full code Lovenox for DVT prophylaxis Possible discharge tomorrow. May need oxygen on discharge. Attestations 2 Medical Necessity Statement*: Needs continued hospitalization for IV antibiotics considering fever and neutropenia, but patient is improving. Diagnoses Fever and neutropenia D70.9; R50.81 Hypoxia R09.02 Influenza A J10.1 Diarrhea R19.7 Hyponatremia E87.1 COPD (chronic obstructive pulmonary disease) J44.9 Time Spent (min) 25
[2023-03-19] MEDS: ARIPiprazole 10 mg Tablet 15 MG PO (10:09)
[2023-03-19] MEDS: oseltamivir phosphate 75 mg Capsule PO ×2 (10:09→18:12)
[2023-03-19] MEDS: citalopram 20 mg Tablet 40 MG PO (10:09)
[2023-03-19] MEDS: lisinopril 20 mg Tablet 40 MG PO (10:10)
[2023-03-19] MEDS: loratadine 10 mg Tablet PO (10:10)
[2023-03-19] MEDS: predniSONE 20 mg Tablet 40 MG PO (10:10)
[2023-03-19] MEDS: aspirin 81 mg EC Tablet PO (10:10)
[2023-03-19] MEDS: labetalol 200 mg Tablet 100 MG PO (10:10)
[2023-03-19] MEDS: clopidogrel 75 mg Tablet PO (10:10)
[2023-03-19] MEDS: pantoprazole DR 40 mg Tablet PO ×2 (10:10→18:12)
[2023-03-19] MEDS: folic acid 1 mg Tablet PO (10:11)
[2023-03-19] MEDS: nystatin 100,000 unit/mL UDC 5 mL 500000 UNIT PO ×4 (10:11→19:19)
[2023-03-19] MEDS: TRAMadol 50 mg Tablet PO (10:13)
[2023-03-19] MEDS: trazodone 100 mg Tablet 200 MG PO (21:34)
[2023-03-20] VITALS (51 sets, daily range): BP systolic 156–218; BP diastolic 103–128; PULSE 0–109; RESP 17–34; TEMP 36.1–36.9; O2SAT 92–96
--- NOTE | 2023-03-20 01:01 | PC.NURSE ---
Addendum entered by Rachael Pruitt RN 03/20/23 01:12: Hydralazine 10 mg IV x1 ordered. Original Note: Patient currently has a blood pressure of 180/104. She takes spironolactone daily at home, which is not ordered. She takes Hydralazine BID at home, which is not ordered. She takes Labetalol BID at home, but it is only ordered once daily. Her med rec had incorrect doses and frequencies. I have updated it. Patient is asking for something for her blood pressure. Dr. Figueroa notified of all of the above.
[2023-03-20] MEDS: ipratropium-albuterol 3 mL Neb INHALATION ×4 (01:13→19:29)
[2023-03-20] MEDS: hyDRALAzine 20 mg/mL INJ 1 mL 10 MG IVP (01:28)
--- NOTE | 2023-03-20 02:15 | PC.NURSE ---
Dr. Figueroa notified of Hydralazine IV 10 mg given at 01:28 and blood pressure is currently 184/112. Ordered to recheck in 30 minutes.
--- NOTE | 2023-03-20 02:49 | PC.NURSE ---
Addendum entered by Rachael Pruitt RN 03/20/23 03:05: Labetalol IVP 10 mg x1 and recheck in one hour ordered. Original Note: Blood pressure is now 174/119. Dr. Figueroa notified.
[2023-03-20] MEDS: labetalol 5 mg/mL SDV 20mL 10 MG IVP ×4 (03:41→21:00)
--- NOTE | 2023-03-20 05:28 | PC.NURSE ---
Dr. Figueroa notified of patient receiving Labetalol 10 mg IVP at 03:41 and current blood pressure being 182/106. Ordered to give 9 am Lisinopril now.
[2023-03-20 05:37] LABS: Basophils % 0.5 %; Eosinophils % 0.5 %; Hematocrit 30.7 % (36-47); Mean Corpuscular HGB Conc 32.9 g/dL (30-55); Mean Corpuscular Hemoglobin 30.7 pg (27-33); Mean Corpuscular Volume 93.3 fl (85-98); Mean Platelet Volume 9.9 fL (7.4-10.4); Monocytes # 0.2 10^3/uL (0.2-0.9); Monocytes % 7.6 %; Neutrophils % 44.9 %; Nucleated Red Blood Cells % 0 %; Platelet Count 43 10^3/cmm (157-399); Red Blood Count 3.29 10^6/uL (3.85-5.65); Red Cell Distribution Width 16.7 % (12.1-15.1); White Blood Count 2.11 10^3/uL (3.29-11.43)
[2023-03-20] MEDS: lisinopril 20 mg Tablet 40 MG PO (05:41)
--- NOTE | 2023-03-20 05:45 | CTR_ITS ---
PROCEDURE INFORMATION: Exam: CT Head Without Contrast Exam date and time: 03/20/2023 5:54 AM Age: 47 years old Clinical indication: Weakness, extremity; Right; Patient HX: Sudden onset of RT upper extremity weakness. Recent history of acute lacunar infarcts. History of lung cancer. ; Additional info: Stroke alert TECHNIQUE: Imaging protocol: Computed tomography of the head without contrast. Radiation optimization: All CT scans at this facility use at least one of these dose optimization techniques: automated exposure control; mA and/or kV adjustment per patient size (includes targeted exams where dose is matched to clinical indication); or iterative reconstruction. COMPARISON: MR head wo/w con [id number] 12/04/2022 10:59 AM RADIATION DOSE METRICS: Total DLP (mGy-cm): 1108.98 FINDINGS: Brain: Normal. No hemorrhage. Unremarkable white matter. No mass effect. Cerebral ventricles: No ventriculomegaly. Paranasal sinuses: Visualized sinuses are unremarkable. No fluid levels. Mastoid air cells: Visualized mastoid air cells are well aerated. Bones/joints: Unremarkable. No acute fracture. Soft tissues: Unremarkable. CT/CT head wo con* [id number] IMPRESSION: No acute intracranial abnormality.
[2023-03-20 05:49] LABS: Neutrophils # 0.95 10^3/uL (1.8-7.7)
--- NOTE | 2023-03-20 05:51 | CTR_ITS ---
PROCEDURE INFORMATION: Exam: CTA Head With Contrast, Arteriography Exam date and time: 03/20/2023 5:58 AM Age: 47 years old Clinical indication: Prior surgery; Surgery date: 6+ months; Surgery type: Chest port; Patient HX: Sudden onset of RT upper extremity weakness. Recent history of acute lacunar infarcts. History of lung cancer. ; Additional info: Stroke nihss 5 TECHNIQUE: Imaging protocol: Computed tomographic angiography of the head with contrast. Exam focused on the arteries. 3D rendering (Not supervised by radiologist): MIP and/or 3D reconstructed images were created by the technologist. Radiation optimization: All CT scans at this facility use at least one of these dose optimization techniques: automated exposure control; mA and/or kV adjustment per patient size (includes targeted exams where dose is matched to clinical indication); or iterative reconstruction. Contrast material: OMNI 350; Contrast volume: 60 ml; Contrast route: INTRAVENOUS (IV); COMPARISON: CT angio headneck* [id number] 09/29/2022 5:38 PM RADIATION DOSE METRICS: Total DLP (mGy-cm): 531.43 FINDINGS: ANTERIOR CIRCULATION: Right internal carotid artery: Intracranial segment is patent with no significant stenosis. No aneurysm. Right middle cerebral artery: No occlusion or significant stenosis. No aneurysm. Right anterior cerebral artery: No occlusion or significant stenosis. No aneurysm. 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 Left internal carotid artery: Intracranial segment is patent with no significant stenosis. No aneurysm. Left middle cerebral artery: No occlusion or significant stenosis. No aneurysm. Left anterior cerebral artery: No occlusion or significant stenosis. No aneurysm. POSTERIOR CIRCULATION: Right vertebral artery: The small right vertebral artery terminates in the PICA, unchanged. Left vertebral artery: No occlusion or significant stenosis. No aneurysm. Basilar artery: No occlusion or significant stenosis. No aneurysm. Right posterior cerebral artery: No occlusion or significant stenosis. No aneurysm. Left posterior cerebral artery: No occlusion or significant stenosis. No aneurysm. Left posterior communicating artery: 2 mm aneurysm from the left posterior communicating artery unchanged. Brain: No definite mass, mass effect, or midline shift. Cerebral ventricles: No ventriculomegaly. Bones/joints: Unremarkable. No acute fracture. Soft tissues: Unremarkable. PROCEDURE INFORMATION: Exam: CTA Neck With Contrast Exam date and time: 03/20/2023 5:58 AM Age: 47 years old Clinical indication: Prior surgery; Surgery date: 6+ months; Surgery type: Chest port; Patient HX: Sudden onset of RT upper extremity weakness. Recent history of acute lacunar infarcts. History of lung cancer. ; Additional info: Stroke nihss 5 TECHNIQUE: Imaging protocol: Computed tomographic angiography of the neck with contrast. Exam focused on the cervical segments of the vasculature. 3D rendering (Not supervised by radiologist): MIP and/or 3D reconstructed images were created by the technologist. Radiation optimization: All CT scans at this facility use at least one of these dose optimization techniques: automated exposure control; mA and/or kV adjustment per patient size (includes targeted exams where dose is matched to clinical indication); or iterative reconstruction. Contrast material: OMNI 350; Contrast volume: 60 ml; Contrast route: INTRAVENOUS (IV); COMPARISON: MR angio neck w con* [id number] 09/30/2022 10:50 AM RADIATION DOSE METRICS: Total DLP (mGy-cm): 531.43 FINDINGS: Right common carotid artery: No stenosis. No dissection or occlusion. Right internal carotid artery: No stenosis of the extracranial segment. No dissection or occlusion. Right external carotid artery: No occlusion or stenosis of the origin. Left common carotid artery: No stenosis. No dissection or occlusion. Left internal carotid artery: Left internal carotid artery is occluded at its origin for a very short segment with reconstitution. Left external carotid artery: No occlusion or stenosis of the origin. Right vertebral artery: No stenosis. No dissection or occlusion. Left vertebral artery: No stenosis. No dissection or occlusion. Lymph nodes: Visible mediastinal lymph nodes are suspicious for neoplastic disease. Soft tissues: Normal. No significant soft tissue swelling. Bones/joints: No acute fracture. Lungs: Extensive bilateral ground-glass infiltrates, greatest in the right upper lobe and suspicious for covered pneumonia. Scattered pulmonary nodules, the largest spiculated in the left upper lobe and measuring 2.[address]/CT angio headneck* [id number] IMPRESSION: Small unchanged aneurysms. IMPRESSION: 1. Likely COVID 19 pneumonia. 2. Lung masses, largest in the left upper lobe. 3. Short occlusion of the left internal carotid artery unchanged from before. REFERENCES: NASCET CRITERIA. The degree of stenosis in the cervical segment of the internal carotid artery is based on NASCET criteria. Normal is no stenosis. Mild is less than 50% stenosis. Moderate is 50-69% stenosis. Severe is 70% to 99% stenosis. Total occlusion is no detectable patent lumen.
[2023-03-20 05:53] LABS: Glucose Point of Care 107 mg/dL (70-110)
[2023-03-20 05:54] LABS: Alanine Aminotransferase 60 U/L (0-33); Albumin Level 3.1 g/dL (3.5-5.2); Alkaline Phosphatase 90 U/L (35-105); Anion Gap 16.3 (5-19); Aspartate Amino Transferase 34 U/L (0-32); Blood Urea Nitrogen 18 mg/dL (6-20); Calcium 8.3 mg/dL (8.5-10.5); Carbon Dioxide 21 mmol/L (22-29); Chloride 106 mmol/L (98-107); Globulin 3.2 g/dL (1.3-4.6); Glomerular Filtration Rate 89.7 mL/min (90-130); Glucose 99 mg/dL (65-115); Osmolality Calculated 290 mOsm/kg (285-295); Potassium 4.3 mmol/L (3.5-5.1); Sodium 139 mmol/L (136-145); Total Bilirubin 0.5 mg/dL (0.15-1.2); Total Protein 6.3 g/dL (6.6-8.7)
[2023-03-20] MEDS: iohexol 350 mg/mL 500 mL Btl (per mL) IV (06:07)
--- NOTE | 2023-03-20 06:16 | ECG_ITS ---
[facility] Test Date: 2023-03-20 Pat Name: Leann Monte Department: Room: 263 Gender: Female Reed Fixer: : 1975 Requested By: Lv Xiong Order Number: [id number] Nelly MD: David Tubbs M.D. Measurements Intervals [place] Rate: 110 P: 61 VA: 120 QRS: 36 QRSD: 88 T: 96 QT: 333 QTc: 452 Interpretive Statements SINUS TACHYCARDIA POSSIBLE LEFT ATRIAL ENLARGEMENT [-0.1mV P-WAVE IN V1/V2] NONSPECIFIC ST & T-WAVE ABNORMALITY ABNORMAL RHYTHM ECG Compared to ECG 10/17/2022 15:47:33 Possible ischemia no longer present T-wave abnormality still present Electronically Signed On 03-22-2023 7:58:38 [employer] by David Tubbs M.D. [id number]
[2023-03-20] MEDS: vancomycin 1,250 MG/250 ML PIGGYBACK 250 MG IV ×2 (06:38→16:31)
[2023-03-20] MEDS: cefepime 2,000 MG in sodium chloride 0.9% (plus) 50 ML 100 MG IV ×2 (06:42→16:23)
--- NOTE | 2023-03-20 07:18 | PM.CCNAC ---
Critical Care Event Note The high probability of a clinically significant, sudden or life threatening deterioration of the patient's [neurology] system(s) required my full and direct attention, intervention and personal management. The critical care time is as shown. This time is in addition to time spent performing any reported procedures but includes the following: [x] Data and vital sign review and interpretation [x] Patient assessment, examination and intervention [x] Documentation [x] Medication orders and management Critical Care Time Code activated: Yes Critical Care Time (min): 70 Additional information about critical care time: Patient reported to the RN this morning at 5:30 AM that she has noticed weakness in her right arm and right leg starting at about 3:30 AM this morning. On assessment, patient was noted to have right upper and lower extremity weakness, both upper and lower right side show drift without hitting the bed. She is also noted to have mild facial droop and dysarthria. Her words are slurred but still understandable. NIH stroke scale 5. stroke code was called. CT head and CTA head and neck were obtained. Images were pushed to neuroconsult line at [facility]. Personal review of CT head was without any hemorrhagic stroke. Patient was still within the tPA window and case was discussed with telestroke . Though patient is within the window, her thrombocytopenia with the following platelet count at 43,000 today puts her at a very high risk of bleeding with receiving tenecteplase. In view of this thrombocytopenia, tenecteplase was not administered. CTA of the head and neck was reviewed additionally, no major vessel intracranial encountered. She is noted to have chronic left-sided carotid obstruction which is unchanged compared to previous scans. Patient is known to have had a TIA in September 2022 related to this carotid stenosis previously. Neurology recommends nonurgent intervention for this carotid artery stenosis given that this would be a second episode. Patient is already on aspirin and Plavix which we will continue with close monitoring of platelet count. Add atorvastatin 40mg po daily. PT/OT/ speech therapy assessments. Recommended permissive HTN. Prior to onset of symptoms, patient had received hydralazine 10mg iv , labetalol 10mg iv and lisinipril 40. With acute stroke, antihypertensives have now been placed on hold. Current VS: BP 187/108, HR 115, RR 23, 92% on 5lpm Coding Level of Care Code Acute Code for Chg Fwd
--- NOTE | 2023-03-20 07:56 | PC.NURSE ---
This nurse went to patient's room to administer PO Lisinopril. This RN noticed that that patient was not moving her right arm like she was before. Neuro assessment was done and right arm showed severe weakness and right leg showed mild weakness. This nurse asked patient when she started having weakness in her right arm and the patient stated around 3:30. Stroke alert called at 05:43. Dr. Figueroa at bedside. Patient's oxygen saturation 88 percent. Patient's oxygen turned up from 2 liters to [address] and EKG ordered and completed. Significant other notified via telephone per patient request. Patient now having some aphasia as well. Dr. Figueroa ordered to place PO blood pressure medications on hold and to not treat high blood pressure unless greater than 220.
[2023-03-20] MEDS: budesonide 0.5 mg/2 mL Neb INHALATION ×2 (08:30→19:29)
[2023-03-20] MEDS: ARIPiprazole 10 mg Tablet 15 MG PO (09:02)
[2023-03-20] MEDS: predniSONE 20 mg Tablet 40 MG PO (09:02)
[2023-03-20] MEDS: oseltamivir phosphate 75 mg Capsule PO ×2 (09:02→17:32)
[2023-03-20] MEDS: loratadine 10 mg Tablet PO (09:02)
[2023-03-20] MEDS: nystatin 100,000 unit/mL UDC 5 mL 500000 UNIT PO ×4 (09:02→21:00)
[2023-03-20] MEDS: pantoprazole DR 40 mg Tablet PO ×2 (09:02→17:32)
[2023-03-20] MEDS: clopidogrel 75 mg Tablet PO (09:03)
[2023-03-20] MEDS: folic acid 1 mg Tablet PO (09:03)
[2023-03-20] MEDS: aspirin 81 mg EC Tablet PO (09:03)
[2023-03-20] MEDS: citalopram 20 mg Tablet 40 MG PO (09:03)
[2023-03-20] MEDS: TRAMadol 50 mg Tablet PO (10:27)
--- NOTE | 2023-03-20 12:07 | P.PN_ITS ---
Subjective 2 Subjective: This morning patient had a code stroke called, she is not a tPA candidate because of thrombocytopenia She has dense hemiplegia of right side Slurred speech Awaiting PT OT ST Will transfer to ICU because she is very tachypneic requiring 4 L of oxygen As per the she was not on oxygen before Leukocytosis hemoglobin stable however thrombocytopenia worsening She is on aspirin and Plavix at this time She has chronic left-sided ICA occlusion Vitals/I&O/Wt Last Vital Signs Temp 98.2 F 03/20/23 11:44 Pulse 99 03/20/23 11:44 Resp 19 H 03/20/23 11:44 BP 179/123 03/20/23 11:44 Pulse Ox 94 03/20/23 11:44 O2 Del Method Nasal Cannula 03/20/23 08:00 O2 Flow Rate 3 03/20/23 08:00 03/19/23 03/20/23 03/20/23 22:59 06:59 14:59 Intake Total 300 / 1734 300 / 300 Output Total 300 / 300 600 / 900 Balance 0 / 1434 -600 / 834 300 / 300 Weight last 48 hrs Weight 98.067 kg Weight 99.11 kg Physical Exam 2 Narrative: Right-sided density hemiplegia Dysarthria Able to understand my commands Expressive dysarthria S1, S2 Currently on 4 L Active wheezing Abdomen soft Data 03/20/23 04:54 03/20/23 04:54 A&P Assessment and plan (1) Acute CVA (cerebrovascular accident): (2) Generalized anxiety disorder: (3) Cannabis use disorder, mild, in early remission, abuse: (4) Essential hypertension: (5) Carotid artery, internal, occlusion: Qualifiers: Laterality: left Qualified Code(s): I65.22 - Occlusion and stenosis of left carotid artery (6) Occlusion of left internal carotid artery: (7) Influenza A: (8) Lung cancer: (9) Stage III adenocarcinoma of lung: (10) Acute lacunar infarction: (11) Lung mass: (12) COPD (chronic obstructive pulmonary disease): (13) Hypoxia: Plan Acute CVA Left chronic occluded ICA Patient is already on aspirin Plavix She has thrombocytopenia not a TNKase candidate as per the stroke on-call neurologist Patient has dense right-sided hemiplegia with dysarthria Transferred to ICU Acute hypoxia currently on 4 L does not use oxygen at home Will request respiratory panel recent diagnosis of influenza Rule out COVID Afebrile Currently on Tamiflu and empirical antibiotic coverage Permissive hypertension Will give labetalol if blood pressure above 180/110mmhg Pancytopenia Hemoglobin and white count improving however thrombocytopenia worsening I will hold aspirin if he keeps getting worse Transfer to ICU PT OT ST Cathy Garvin C. difficile panel pending ABG requested, Attestations 2 Medical Necessity Statement*: Continue medical management Diagnoses Acute CVA (cerebrovascular accident) I63.9 Generalized anxiety disorder F41.1 Cannabis use disorder, mild, in early remission, abuse F12.11 Essential hypertension I10 Occlusion of left internal carotid artery I65.22 Laterality: left Occlusion of left internal carotid artery I65.22 Influenza A J10.1 Lung cancer C34.90 Stage III adenocarcinoma of lung C34.90 Acute lacunar infarction I63.81 Lung mass R91.8 COPD (chronic obstructive pulmonary disease) J44.9 Hypoxia R09.02
[2023-03-20 12:26] LABS: ABG PCO2 33.6 mmHg (35-45); Arterial Blood Gas Hematocrit 32.1 % (37-47); Base Excess ABG -3.3 mmol/L (-2.0-2.0); Blood Gas Allen Test Pos; Blood Gas Operator Identificat CAK; Blood Gas Sample Site Radial, left; Blood Gas Sample Type Arterial; HCO3 ABG 20.9 mmol/L (22-26); Oxygen Device NC; PO2 ABG 63.2 mmHg (80.0-100.0); PO2 FiO2 Ratio Arterial Blood 0
--- NOTE | 2023-03-20 12:30 | PC.NURSE ---
recieved to icu on bed right arm flaccid left leg able to move on bed but not lift any speech with aphasia and dysarthia noted swallows well at this time significant other at bedside
[2023-03-20] MEDS: ALPRAZolam 0.5 mg Tablet PO (14:08)
[2023-03-20 15:38] LABS: Adenovirus Not Detected (NOT DETECT); Chlamydia Pneumoniae Not Detected (NOT DETECT); Coronavirus 229E,HKU1,NL63,OC4 Not Detected (NOT DETECT); Human Metapneumovirus Not Detected (NOT DETECT); Human Rhinovirus/Enterovirus Not Detected (NOT DETECT); Influenza A Not Detected (NOT DETECT); Influenza A H1 Not Detected (NOT DETECT); Influenza A H1-2009 Not Detected (NOT DETECT); Influenza A H3 Not Detected (NOT DETECT); Influenza B Not Detected (NOT DETECT); Mycoplasma Pneumoniae Not Detected (NOT DETECT); Parainfluenza Virus Type 1 Not Detected (NOT DETECT); Parainfluenza Virus Type 2 Not Detected (NOT DETECT); Parainfluenza Virus Type 3 Not Detected (NOT DETECT); Parainfluenza Virus Type 4 Not Detected (NOT DETECT); Respiratory Syncytial Virus A Not Detected (NOT DETECT); Respiratory Syncytial Virus B Not Detected (NOT DETECT); SARS-COV-2 Not Detected (NOT DETECT)
--- NOTE | 2023-03-20 18:22 | PC.NURSE ---
doctor notified of blood pressure remaining elevated and repeat labetolol
[2023-03-20] MEDS: atorvastatin 40 mg Tablet PO (21:00)
[2023-03-21] VITALS (77 sets, daily range): BP systolic 128–207; BP diastolic 84–139; PULSE 68–125; RESP 14–30; TEMP 36–36.8; O2SAT 90–97
[2023-03-21] MEDS: TRAMadol 50 mg Tablet PO ×2 (01:31→15:35)
[2023-03-21] MEDS: ipratropium-albuterol 3 mL Neb INHALATION ×4 (02:39→19:39)
[2023-03-21] MEDS: labetalol 5 mg/mL SDV 20mL 10 MG IVP (02:41)
[2023-03-21 04:32] LABS: Basophils % 0.4 %; Eosinophils % 0.7 %; Hematocrit 30.7 % (36-47); Lymphocytes # 1.5 10^3/uL (0.8-4.8); Lymphocytes % 53.7 %; Mean Corpuscular HGB Conc 32.9 g/dL (30-55); Mean Corpuscular Hemoglobin 30.6 pg (27-33); Monocytes # 0.2 10^3/uL (0.2-0.9); Monocytes % 8.5 %; Neutrophils # 1.03 10^3/uL (1.8-7.7); Neutrophils % 36.3 %; Nucleated Red Blood Cells % 0 %; Platelet Count 45 10^3/cmm (157-399); Red Cell Distribution Width 16.5 % (12.1-15.1); White Blood Count 2.83 10^3/uL (3.29-11.43)
[2023-03-21] MEDS: cefepime 2,000 MG in sodium chloride 0.9% (plus) 50 ML 100 MG IV ×2 (04:49→16:06)
[2023-03-21 04:52] LABS: Blood Urea Nitrogen 20 mg/dL (6-20); Calcium 8.4 mg/dL (8.5-10.5); Carbon Dioxide 18 mmol/L (22-29); Chloride 105 mmol/L (98-107); Glomerular Filtration Rate 89.7 mL/min (90-130); Glucose 84 mg/dL (65-115); Osmolality Calculated 278 mOsm/kg (285-295); Sodium 133 mmol/L (136-145)
[2023-03-21 04:54] LABS: Anion Gap 14.7 (5-19); Potassium 4.7 mmol/L (3.5-5.1)
[2023-03-21] MEDS: vancomycin 1,250 MG/250 ML PIGGYBACK 250 MG IV ×2 (05:15→17:32)
[2023-03-21] MEDS: budesonide 0.5 mg/2 mL Neb INHALATION ×2 (07:41→19:39)
[2023-03-21] MEDS: hyDRALAzine 50 mg Tablet PO ×4 (09:37→20:11)
[2023-03-21] MEDS: predniSONE 20 mg Tablet 40 MG PO (09:38)
[2023-03-21] MEDS: ARIPiprazole 10 mg Tablet 15 MG PO (09:38)
[2023-03-21] MEDS: chlorthalidone 25 mg Tablet PO (09:38)
[2023-03-21] MEDS: pantoprazole DR 40 mg Tablet PO ×2 (09:38→17:32)
[2023-03-21] MEDS: clopidogrel 75 mg Tablet PO (09:38)
[2023-03-21] MEDS: citalopram 20 mg Tablet 40 MG PO (09:38)
[2023-03-21] MEDS: labetalol 200 mg Tablet 100 MG PO (09:39)
[2023-03-21] MEDS: loratadine 10 mg Tablet PO (09:39)
[2023-03-21] MEDS: oseltamivir phosphate 75 mg Capsule PO ×2 (09:40→17:32)
[2023-03-21] MEDS: folic acid 1 mg Tablet PO (09:40)
[2023-03-21] MEDS: lisinopril 20 mg Tablet 40 MG PO (09:41)
[2023-03-21] MEDS: nystatin 100,000 unit/mL UDC 5 mL 500000 UNIT PO ×4 (10:03→20:11)
[2023-03-21] MEDS: amlodipine 10 mg Tablet PO (11:47)
--- NOTE | 2023-03-21 12:03 | PM.PN ---
Subjective Subjective: Patient's tachypnea has slightly improved however she still breathing around 20s breaths/min Very anxious Family at the bedside Atrial flutter noted on telemetry rhythm Not a candidate for anticoagulation Starting Cardene gtt. for hypertensive emergency diastolic is 112mmhg Vitals/I&O/Wt Last Vital Signs Temp 98 F 03/21/23 11:00 Pulse 86 03/21/23 11:00 Resp 25 H 03/21/23 11:00 BP 168/105 03/21/23 11:00 Pulse Ox 94 03/21/23 09:30 O2 Del Method Nasal Cannula 03/21/23 07:42 O2 Flow Rate 3.5 03/21/23 07:42 03/20/23 03/21/23 03/21/23 22:59 06:59 14:59 Intake Total 300.000 / 600.000 300 / 900.000 200 / 200 Output Total 500 / 800 500 / 1300 350 / 350 Balance -200.000 / -200.000 -200 / -400.000 -150 / -150 Weight last 48 hrs Weight 96.797 kg Weight 98.067 kg Physical Exam Narrative: Patient is able to move her right arm to some extent 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 methods 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 She is able to wiggle her right toes as well which is a significant movement since yesterday Anxious appearing Breathing rate 120s Family at the bedside Noticed atrial flutter on telemetry S1, S2 GCS 15 Currently doing well on room air Data 03/21/23 03:54 03/21/23 03:54 A&P Assessment and plan (1) Generalized anxiety disorder: (2) Post-traumatic stress disorder, chronic: (3) Carotid artery, internal, occlusion: Qualifiers: Laterality: left Qualified Code(s): I65.22 - Occlusion and stenosis of left carotid artery (4) Lung cancer: (5) Stage III adenocarcinoma of lung: (6) Influenza: (7) Acute CVA (cerebrovascular accident): (8) Left upper lobe pulmonary nodule: (9) Pancytopenia: Plan Started Cardene drip for hypertensive emergency No active chest pain No active shortness of breath Doing well on room air Tachypnea persistent however significant improvement since yesterday I am continuing Plavix holding aspirin atrial flutter on telemetry not a candidate for anticoagulating agent If her platelets are dropping below 30,000 I will be inclined to give her a unit of platelets She might need short-term rehab Full code Continue ICU management Attestations Medical Necessity Statement*: Continue ICU care Diagnoses Generalized anxiety disorder F41.1 Post-traumatic stress disorder, chronic F43.12 Occlusion of left internal carotid artery I65.22 Laterality: left Lung cancer C34.90 Stage III adenocarcinoma of lung C34.90 Influenza J11.1 Acute CVA (cerebrovascular accident) I63.9 Left upper lobe pulmonary nodule R91.1 Pancytopenia D61.818
--- NOTE | 2023-03-21 12:47 | PC.NURSE ---
new am medication for blood pressure staggered monitor blood pressure decreasing rapid held off starting cardene gtt monitor pressure as to not lower too fast pt related feels better at this time right side remains flaccid arm and minimal leg movement anxious at this time voiding bedpan at this time
[2023-03-21] MEDS: nicardipine 20 MG/200 ML PREMIX 50 MG IV (13:10)
--- NOTE | 2023-03-21 13:29 | PC.NURSE ---
shakeel started at prior to 1300 blood pressure down at this time and visitor in room significant other upset and demanding detention disablity paper work filled out now explained was wednesday and would have doctor see hakeem started talking loudly to claudia stating you are just a nurse not doctor and i want to talk to him now explained need to calm down started saying she has stage 4 lung cancer do you understand that ,, no i dont think so ..called doctor to call him
--- NOTE | 2023-03-21 15:38 | PC.NURSE ---
blood pressure down at this time weaned off cardene and tramadol given
--- NOTE | 2023-03-21 16:13 | PC.NURSE ---
clariene gtt off at this time head ache much better no change in nuro status
[2023-03-21 16:46] LABS: Glucose Point of Care 137 mg/dL (70-110)
--- NOTE | 2023-03-21 17:51 | PC.NURSE ---
apressoline late as weaning off cardene gtt blood pressure down at that time maintain nuro status significant other in room increase appitite for even meal
[2023-03-21] MEDS: atorvastatin 40 mg Tablet PO (20:11)
--- NOTE | 2023-03-21 20:18 | PC.NURSE ---
Janes Ruvalcaba: Janes ruvalcaba off on arrival to shift. MAR edited for 1900 to reflect this.
[2023-03-22] VITALS (98 sets, daily range): BP systolic 122–187; BP diastolic 81–156; PULSE 60–101; RESP 17–27; TEMP 37–37.1; O2SAT 90–98
[2023-03-22] MEDS: ipratropium-albuterol 3 mL Neb INHALATION ×4 (01:16→20:51)
[2023-03-22] MEDS: labetalol 5 mg/mL SDV 20mL 10 MG IVP ×2 (01:51→06:56)
[2023-03-22 04:09] LABS: Eosinophils % 1.1 %; Hematocrit 30.3 % (36-47); Lymphocytes # 1.4 10^3/uL (0.8-4.8); Lymphocytes % 52.8 %; Mean Corpuscular HGB Conc 33.7 g/dL (30-55); Mean Corpuscular Hemoglobin 30.5 pg (27-33); Mean Corpuscular Volume 90.7 fl (85-98); Mean Platelet Volume 11.5 fL (7.4-10.4); Monocytes # 0.3 10^3/uL (0.2-0.9); Monocytes % 9.4 %; Neutrophils % 36.3 %; Nucleated Red Blood Cells % 0 %; Platelet Count 43 10^3/cmm (157-399); Red Blood Count 3.34 10^6/uL (3.85-5.65); Red Cell Distribution Width 16.3 % (12.1-15.1); White Blood Count 2.65 10^3/uL (3.29-11.43)
[2023-03-22] MEDS: cefepime 2,000 MG in sodium chloride 0.9% (plus) 50 ML 100 MG IV ×2 (04:10→16:28)
[2023-03-22 04:30] LABS: Blood Urea Nitrogen 22 mg/dL (6-20); Carbon Dioxide 24 mmol/L (22-29); Chloride 99 mmol/L (98-107); Glomerular Filtration Rate 89.7 mL/min (90-130); Glucose 77 mg/dL (65-115); Osmolality Calculated 282 mOsm/kg (285-295); Sodium 135 mmol/L (136-145)
[2023-03-22 04:50] LABS: Neutrophils # 0.96 10^3/uL (1.8-7.7)
[2023-03-22 05:47] LABS: ABG PCO2 35.7 mmHg (35-45); ABG PH Result 7.43 (7.35-7.45); Arterial Blood Gas Hematocrit 35.6 % (37-47); Base Excess ABG -0.1 mmol/L (-2.0-2.0); Blood Gas Operator Identificat JB; Blood Gas Sample Type Arterial; HCO3 ABG 23.9 mmol/L (22-26); Oxygen Device NC; PO2 ABG 64.1 mmHg (80.0-100.0)
[2023-03-22 05:54] LABS: Blood Gas Sample Site Brachial, right
[2023-03-22] MEDS: vancomycin 1,250 MG/250 ML PIGGYBACK 250 MG IV ×2 (06:05→18:19)
[2023-03-22] MEDS: ARIPiprazole 10 mg Tablet 15 MG PO (08:34)
[2023-03-22] MEDS: nystatin 100,000 unit/mL UDC 5 mL 500000 UNIT PO ×4 (08:34→20:39)
[2023-03-22] MEDS: predniSONE 20 mg Tablet 40 MG PO (08:35)
[2023-03-22] MEDS: citalopram 20 mg Tablet 40 MG PO (08:35)
[2023-03-22] MEDS: chlorthalidone 25 mg Tablet PO (08:35)
[2023-03-22] MEDS: lisinopril 20 mg Tablet 40 MG PO (08:35)
[2023-03-22] MEDS: pantoprazole DR 40 mg Tablet PO ×2 (08:35→18:18)
[2023-03-22] MEDS: loratadine 10 mg Tablet PO (08:35)
[2023-03-22] MEDS: clopidogrel 75 mg Tablet PO (08:35)
[2023-03-22] MEDS: folic acid 1 mg Tablet PO (08:35)
[2023-03-22] MEDS: hyDRALAzine 50 mg Tablet PO ×3 (08:35→20:39)
[2023-03-22] MEDS: amlodipine 10 mg Tablet PO (08:35)
[2023-03-22] MEDS: labetalol 200 mg Tablet 100 MG PO (08:36)
[2023-03-22] MEDS: oseltamivir phosphate 75 mg Capsule PO ×2 (08:36→18:18)
[2023-03-22] MEDS: budesonide 0.5 mg/2 mL Neb INHALATION ×2 (08:58→20:51)
--- NOTE | 2023-03-22 11:14 | P.PN_ITS ---
Subjective 2 Subjective: Patient endorsing feeling better Consulted nephro for her hypertensive crisis Requesting venous Doppler to rule out renal artery stenosis at home she was on 4 different antihypertensive regimen Off Cardene drip since midnight Vitals/I&O/Wt Last Vital Signs Temp 98.3 F 03/21/23 20:15 Pulse 90 03/22/23 10:00 Resp 27 H 03/22/23 10:00 BP 133/94 03/22/23 10:00 Pulse Ox 93 03/22/23 10:00 O2 Del Method Nasal Cannula 03/22/23 08:00 O2 Flow Rate 3 03/22/23 08:00 03/21/23 03/22/23 03/22/23 22:59 06:59 14:59 Intake Total 667.000 / 1355.500 50 / 1405.500 370 / 370 Output Total 350 / 1050 200 / 200 Balance 317.000 / 305.500 50 / 355.500 170 / 170 Weight last 48 hrs Weight 96.797 kg Physical Exam 2 Narrative: Awake and alert Still showing some progress with wiggling of toes and movement of her hand on right side Able to tolerate diet Still hypertensive however off Cardene Still hypertensive S1, S2 Dysarthria Able to understand verbal commands Abdomen soft at the bedside Data 03/22/23 02:56 03/22/23 02:56 A&P Assessment and plan (1) Post-traumatic stress disorder, chronic: (2) Major depressive disorder, recurrent, moderate: (3) Hypertensive urgency: (4) Essential hypertension: (5) Occlusion of left internal carotid artery: (6) Lung mass: (7) Stage III adenocarcinoma of lung: (8) Lung cancer: (9) Pancytopenia: (10) Hypertensive crisis: Plan Off Cardene drip since midnight Requested nephro to adjust her antihypertensive regimen She has requested venous Doppler to rule out renal artery stenosis for her resistant hypertension Continue PT OT ST No aspiration She may continue with PT today I will keep her in ICU in case she required Cardene drip again Full code She would qualify for long-term disability considering her current state we are looking into rehab placement Pancytopenia with underlying lung cancer My concern is related to thrombocytopenia with active stroke I am a bit reluctant to give her platelets due to her acute CVA Continue Plavix, holding aspirin for now Hemoglobin and white count relatively stable Spoke with Dr Hay, Tax Associate Attorney Attestations 2 Medical Necessity Statement*: Continue ICU management Diagnoses Post-traumatic stress disorder, chronic F43.12 Major depressive disorder, recurrent, moderate F33.1 Hypertensive urgency I16.0 Essential hypertension I10 Occlusion of left internal carotid artery I65.22 Lung mass R91.8 Stage III adenocarcinoma of lung C34.90 Lung cancer C34.90 Pancytopenia D61.818 Hypertensive crisis I16.9
--- NOTE | 2023-03-22 12:06 | P.CONIM_ITS ---
Providers/Reason For Consult 2 Consulting Physician/Specialty*: [facility]/nephrology Reason for Consult*: Malignant hypertension Attending Physician: Ella Thompson MD Primary Care Provider: Jean Iniguez DO History of Present Illness History of Present Illness Leann Monte is a 47 year old female 47-year-old female who was sent from oncology clinic due to hypoxia and neutropenia. Patient also reported having fever at home. She has past medical history of COPD, hypertension, stage III adenocarcinoma of the lung receiving chemotherapy. Her last chemotherapy treatment was on March 09. Patient was admitted to the hospital her Neupogen was initiated as well as Solu-Medrol and DuoNeb treatments due to hypoxia. While she was on the floor on 03/20/2023-developed new right hemiplegia was then transferred to ICU. Was not a tPA candidate due to thrombocytopenia. Patient was noted to have elevated blood pressures with a diastolic more than 1 teens and was started on Cardene drip yesterday which was currently off. Her home blood pressure meds were restarted. Review of Systems 2 Narrative: Unable to assess full review of systems, family at bedside Medications/Allergies Home Medications Medication Instructions Recorded Confirmed Last Taken Type aspirin 81 mg tablet,delayed 81 mg PO DAILY 30 days #30 tabs 10/01/22 03/17/23 03/17/23 Rx release budesonide-formoterol HFA 160 2 puff inhalation BID #10.2 grams 10/13/22 03/17/23 03/17/23 Rx mcg-4.5 mcg/actuation aerosol inhaler (Symbicort) lisinopril 20 mg tablet 40 mg (2 x 20 mg) PO DAILY #90 tabs 10/17/22 03/17/23 03/17/23 Rx clopidogrel 75 mg tablet (Plavix) 75 mg PO DAILY 30 days #30 tabs 10/26/22 03/17/23 03/17/23 Rx nicotine (polacrilex) 4 mg buccal 4 mg buccal Q6H PRN nicotine 10/26/22 03/17/23 11/22/22 Rx lozenge cravings #108 ea nicotine See Rx Instructions transdermal 10/26/22 03/17/23 02/01/23 Rx 21mg/24hr-14mg/24hr-7mg/24hr daily .COMPLEX #56 patches transderm patches,sequentl omega-3 fatty acids 1,000 mg 1,000 mg PO DAILY 11/30/22 03/17/23 03/17/23 History capsule aripiprazole 15 mg tablet 15 mg PO DAILY #30 tabs 12/16/22 03/17/23 03/17/23 Rx citalopram 40 mg tablet 40 mg PO DAILY #90 tabs 12/16/22 03/17/23 03/17/23 Rx cyclobenzaprine 10 mg tablet 10 mg PO BEDTIME PRN muscle spasm 12/16/22 03/17/23 01/30/23 Rx #30 tabs hydralazine 10 mg tablet 10 mg PO BID unknown 01/04/23 03/17/23 02/01/23 History carboplatin 10 mg/mL intravenous 425 mg (42.5 mL) IV Q21D #45 mL 01/25/23 03/17/23 Unknown Rx solution nivolumab 120 mg/12 mL intravenous 360 mg (36 mL) IV .[id number] 12 01/25/23 03/17/23 Unknown Rx solution (Opdivo) months #3 vials pemetrexed 500 mg intravenous 980 mg IV Q21D #1 ea 01/25/23 03/17/23 Unknown Rx powder for solution dexamethasone 4 mg tablet 4 mg PO DIRECTED Chemotherapy 02/26/23 03/17/23 Unknown Rx #24 tabs folic acid 1 mg tablet 1 mg PO DAILY #30 tabs 02/26/23 03/17/23 Unknown Rx ondansetron HCl 4 mg tablet 4 mg PO QID PRN Nausea/vomiting 02/26/23 03/17/23 Unknown Rx #30 tabs prochlorperazine maleate 10 mg 10 mg PO Q4H PRN Mild Nausea #30 02/26/23 03/17/23 Unknown Rx tablet (Compazine) tabs lidocaine-prilocaine 2.5 %-2.5 % 1 g topical DIRECTED PRN 03/09/23 03/17/23 Unknown Rx topical cream Port-a-Cath #30 grams olanzapine 10 mg tablet (Zyprexa) 5 - 10 mg (0.5 - 1 x 10 mg) PO 03/09/23 03/17/23 Unknown Rx DAILY #30 tabs tramadol 50 mg tablet 50 mg PO BID PRN pain #60 tabs 03/09/23 03/17/23 Unknown Rx methylprednisolone 4 mg tablets in See Rx Instructions PO .COMPLEX 03/14/23 03/17/23 03/17/23 Rx a dose pack (Medrol (Dorian)) #21 ea oseltamivir 75 mg capsule (Tamiflu) 75 mg PO BID 5 days #10 caps 03/14/23 03/17/23 Unknown Rx albuterol sulfate 90 mcg/actuation 2 puff inhalation Q6H PRN 03/17/23 03/17/23 Unknown History aerosol inhaler Shortness Of Breath Or Wheezing buspirone 10 mg tablet 5 - 10 mg PO BID PRN Anxiety 03/17/23 03/17/23 Unknown History hydroxyzine HCl 50 mg tablet 50 - 100 mg PO BEDTIME PRN Anxiety 03/17/23 03/17/23 Unknown History labetalol 100 mg tablet 100 mg PO BID 03/17/23 03/20/23 03/17/23 History meloxicam 7.5 mg tablet 7.5 mg PO DAILY PRN inflamation 03/17/23 03/17/23 Unknown History spironolactone 25 mg tablet 25 mg PO DAILY Edema 03/17/23 03/17/23 Unknown History trazodone 100 mg tablet 200 mg PO BEDTIME PRN insomnia 03/17/23 03/17/23 Unknown History Allergies Allergy/AdvReac Type Severity Reaction Status Date / Time Penicillins Allergy Severe Anaphylaxis Verified 03/17/23 08:24 morphine Allergy Intermediate ADR-Vomitin Verified 03/17/23 08:24 g naproxen Allergy Intermediate ADR-Vomitin Verified 03/17/23 08:24 g lorazepam [From Ativan] AdvReac Severe Becomes Verified 03/17/23 08:24 aggressive. EGGS AdvReac Severe N & V, Uncoded 03/17/23 08:24 Stomach pain, Throat swells shut flu shot AdvReac Severe N & V, Uncoded 03/17/23 08:24 Stomach pain, Throat swells shut nuts AdvReac Severe Vomiting & Uncoded 03/17/23 08:24 throat swells Current Medications Generic Name Dose Route Start Last Admin Trade Name Freq PRN Reason Stop Dose Admin Albuterol/Ipratropium 3 ml 03/17/23 20:00 03/22/23 08:58 Ipratropium-Albuterol 3 Ml Neb INHALATION 3 ml Q6H.RESP JAY JAY Administration Alprazolam 0.5 mg 03/20/23 13:49 03/20/23 14:08 Alprazolam 0.5 Mg Tablet PO 0.5 mg TID PRN Administration ANXIETY Aripiprazole 15 mg 03/18/23 09:00 03/22/23 08:34 Aripiprazole 10 Mg Tablet PO 15 mg DAILY JAY JAY Administration Aspirin 81 mg 03/18/23 09:00 03/20/23 09:03 Aspirin 81 Mg Ec Tablet PO 81 mg DAILY JAY JAY Administration Atorvastatin Calcium 40 mg 03/20/23 21:00 03/21/23 20:11 Atorvastatin 40 Mg Tablet PO 40 mg BEDTIME JAY JAY Administration Budesonide 0.5 mg 03/17/23 20:00 03/22/23 08:58 Budesonide 0.5 Mg/2 Ml Neb INHALATION 0.5 mg BID.RESPIRATORY JAY JAY Administration Citalopram Hydrobromide 40 mg 03/18/23 09:00 03/22/23 08:35 Citalopram 20 Mg Tablet PO 40 mg DAILY JAY JAY Administration Clopidogrel Bisulfate 75 mg 03/18/23 09:00 03/22/23 08:35 Clopidogrel 75 Mg Tablet PO 75 mg DAILY JAY JAY Administration Folic Acid 1 mg 03/18/23 09:00 03/22/23 08:35 Folic Acid 1 Mg Tablet PO 1 mg DAILY JAY JAY Administration Hydralazine HCl 50 mg 03/21/23 08:30 03/22/23 08:35 Hydralazine 50 Mg Tablet PO 50 mg TID JAY JAY Administration Cefepime HCl 2,000 mg/ Sodium 50 mls @ 100 mls/hr 03/17/23 15:45 03/22/23 04:40 Chloride IV Infused Q12H JAY JAY Infusion Protocol Vancomycin/PEG/NADA/Lysine/Water 1,250 mg in 250 mls @ 250 mls/hr 03/17/23 17:30 03/22/23 07:24 Vancocin IV Infused Q12H JAY JAY Infusion Nicardipine/Sodium Chloride 20 mg in 200 mls @ 0 mls/hr 03/21/23 09:15 03/21/23 19:00 Cardene IV 0 mg/hr .Q0M JAY JAY 0 mls/hr Titration Protocol Per Protocol Labetalol HCl 100 mg 03/18/23 09:00 03/22/23 08:36 Labetalol 200 Mg Tablet PO 100 mg DAILY JAY JAY Administration Labetalol HCl 10 mg 03/20/23 12:13 03/22/23 06:56 Labetalol 5 Mg/Ml Sdv 20ml IVP 10 mg Q4H PRN Administration Blood pressure greater than 180/100 mmHg Lisinopril 40 mg 03/18/23 09:00 03/22/23 08:35 Lisinopril 20 Mg Tablet PO 40 mg DAILY JAY JAY Administration Loratadine 10 mg 03/17/23 15:40 03/22/23 08:35 Loratadine 10 Mg Tablet PO 10 mg DAILY JAY JAY Administration Nystatin 500,000 unit 03/17/23 17:00 03/22/23 08:34 Nystatin 100,000 Unit/Ml Udc 5 Ml PO 500,000 unit QID JAY JAY Administration Ondansetron HCl 4 mg 03/17/23 15:35 03/18/23 17:21 Ondansetron 2 Mg/Ml Sdv 2 Ml IVP 4 mg Q6H PRN Administration vomiting, or N/V if npo Oseltamivir Phosphate 75 mg 03/17/23 18:00 03/22/23 08:36 Oseltamivir Phosphate 75 Mg Capsule PO 75 mg BID JAY JAY Administration Pantoprazole Sodium 40 mg 03/18/23 18:00 03/22/23 08:[address] 40 Mg Tablet PO 40 mg BID JAY JAY Administration Tramadol HCl 50 mg 03/17/23 17:38 03/21/23 15:35 Tramadol 50 Mg Tablet PO 50 mg BID PRN Administration pain Trazodone HCl 200 mg 03/17/23 17:38 03/19/23 21:34 Trazodone 100 Mg Tablet PO 200 mg BEDTIME PRN Administration insomnia PFSH Acute 2 PFSH: Medical History (Updated 03/22/23 @ 11:22 by Ella Thompson MD) Lung cancer COPD (chronic obstructive pulmonary disease) Acute lacunar infarction Carotid artery, internal, occlusion Essential hypertension Port-A-Cath in place 02/02 Dr. 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 Nicotine dependence, cigarettes, uncomplicated Hx of nephrolithotomy with removal of calculi Major depressive disorder, recurrent, moderate Post-traumatic stress disorder, chronic Generalized anxiety disorder Surgical History History of removal of ovarian cyst Hx of lithotripsy Hx of hernia repair Hx of cholecystectomy Family History Other CAD (coronary artery disease) Cancer Hypertension Psychiatric illness Stroke Denies family history of Diabetes Chronic kidney disease (CKD) Social History Smoking and tobacco/nicotine status: former use of tobacco/nicotine Quit status (tobacco/nicotine): has quit using Year quit tobacco: 2022 Former quit date comment: still use nicotine patches Second hand smoke exposure: Yes Alcohol intake: never Caregiver/support person: Yes Lives independently: Yes Household members: significant other Housing: House Current occupational status: employed Female Reproductive History: Para: 0 Spontaneous abortions: Yes (all 6 pregnancies) Vitals/I&O/Wt Last Vital Signs Temp 98.3 F 03/21/23 20:15 Pulse 90 03/22/23 10:00 Resp 27 H 03/22/23 10:00 BP 133/94 03/22/23 10:00 Pulse Ox 93 03/22/23 10:00 O2 Del Method Nasal Cannula 03/22/23 08:00 O2 Flow Rate 3 03/22/23 08:00 03/21/23 03/22/23 03/22/23 22:59 06:59 14:59 Intake Total 667.000 / 1355.500 50 / 1405.500 370 / 370 Output Total 350 / 1050 200 / 200 Balance 317.000 / 305.500 50 / 355.500 170 / 170 Weight last 48 hrs Weight 96.797 kg Physical Exam 2 Narrative: Awake, no acute distress Data 03/22/23 02:56 03/22/23 02:56 A&P Assessment and plan (1) Hypertensive crisis: Plan 1. Hypertensive emergency:With blood pressures of 180 systolic and diastolics more than 1 teens, status post Cardene drip. Restarted home blood pressure meds including-hydralazine 50 3 times daily, labetalol 100 daily ,lisinopril 40 a day. Switched amlodipine to nifedipine 60 mg daily -Hold off on aldactone for now , dc chlorthalidone due to risk of hyponatremia -Given that patient on 5 antihypertensive agents at home-will check renal ultrasound with Doppler to rule out renal artery stenosis. Also check cortisol levels -Allow permissive hypertension for the next 48 hours due to acute stroke 2. Hyponatremia: mild monitor 3. Pancytopenia : s/p Neupogen 4. Acute on chronic resp failure pt evaluated via audiovisual cart. Time spent 40 min Consult Attestations 2 Medical Necessity Statement: per rahul Coding Level of Care Code Acute Code for Chg Fwd Diagnoses Hypertensive crisis I16.9
[2023-03-22] MEDS: filgrastim-sndz 300 mcg/0.5 mL Syringe SUBCUT (12:21)
[2023-03-22] MEDS: TRAMadol 50 mg Tablet PO (12:21)
[2023-03-22] MEDS: acetaminophen 325 mg Tablet 650 MG PO (18:18)
[2023-03-22] MEDS: atorvastatin 40 mg Tablet PO (20:39)
[2023-03-23] VITALS (24 sets, daily range): BP systolic 105–161; BP diastolic 71–136; PULSE 74–105; RESP 16–25; TEMP 36.3–37; O2SAT 91–97; BMI 36.9
[2023-03-23] MEDS: TRAMadol 50 mg Tablet PO (01:38)
[2023-03-23 03:45] LABS: Basophils # 0.1 10^3/uL (0.0-0.1); Basophils % 0.8 %; Eosinophils # 0.1 10^3/uL (0.0-0.8); Eosinophils % 0.6 %; Hematocrit 34.6 % (36-47); Lymphocytes # 2.3 10^3/uL (0.8-4.8); Lymphocytes % 20.4 %; Mean Corpuscular HGB Conc 32.7 g/dL (30-55); Mean Corpuscular Hemoglobin 29.7 pg (27-33); Mean Corpuscular Volume 91.1 fl (85-98); Mean Platelet Volume 10.5 fL (7.4-10.4); Monocytes # 0.7 10^3/uL (0.2-0.9); Monocytes % 6.3 %; Neutrophils # 7.89 10^3/uL (1.8-7.7); Neutrophils % 70.4 %; Nucleated Red Blood Cells % 0 %; Platelet Count 49 10^3/cmm (157-399); Red Cell Distribution Width 16.1 % (12.1-15.1)
[2023-03-23] MEDS: labetalol 5 mg/mL SDV 20mL 10 MG IVP (03:54)
[2023-03-23 04:01] LABS: Anion Gap 16.7 (5-19); Blood Urea Nitrogen 27 mg/dL (6-20); Calcium 9.1 mg/dL (8.5-10.5); Carbon Dioxide 24 mmol/L (22-29); Chloride 98 mmol/L (98-107); Glomerular Filtration Rate 89.7 mL/min (90-130); Glucose 81 mg/dL (65-115); Osmolality Calculated 284 mOsm/kg (285-295); Potassium 3.7 mmol/L (3.5-5.1); Sodium 135 mmol/L (136-145)
[2023-03-23 04:11] LABS: Slide Review Slide Review Perform
[2023-03-23] MEDS: cefepime 2,000 MG in sodium chloride 0.9% (plus) 50 ML 100 MG IV ×2 (04:48→16:50)
[2023-03-23] MEDS: vancomycin 1,250 MG/250 ML PIGGYBACK 250 MG IV (05:30)
--- NOTE | 2023-03-23 07:55 | P.PN_ITS ---
Subjective 2 Subjective: diastolic BPs still high Medications: Reviewed: Yes Vitals/I&O/Wt Last Vital Signs Temp 97.6 F 03/23/23 04:00 Pulse 79 03/23/23 06:00 Resp 20 H 03/23/23 06:00 BP 147/107 03/23/23 06:00 Pulse Ox 96 03/23/23 06:00 O2 Del Method Nasal Cannula 03/23/23 06:00 O2 Flow Rate 3 03/23/23 06:00 03/22/23 03/23/23 03/23/23 22:59 06:59 14:59 Intake Total 540 / 1150 320 / 1470 Balance 540 / 750 320 / 1070 Weight last 48 hrs Weight 94.529 kg Physical Exam 2 Narrative: Awake, no acute distress Data 03/23/23 02:51 03/23/23 02:51 A&P Assessment and plan (1) Hypertensive crisis: Plan 1. Hypertensive emergency:With blood pressures of 180 systolic and diastolics more than 1 teens, status post Cardene drip. Restarted home blood pressure meds including-hydralazine 50 3 times daily, labetalol 100 daily ,lisinopril 40 a day. Switched amlodipine to nifedipine - Increased Hydralazine to 75 mg daily and Nifedipine to 90 mg daily -Hold off on aldactone for now , dc chlorthalidone due to risk of hyponatremia -No renal artery stenosis on doppler US. Also check cortisol levels 2. Hyponatremia: mild monitor 3. Pancytopenia : s/p Neupogen 4. Acute on chronic resp failure pt evaluated via audiovisual cart. Time spent 40 min Attestations 2 Medical Necessity Statement*: per rahul Coding Level of Care Code Acute Code for Chg Fwd Diagnoses Hypertensive crisis I16.9
--- NOTE | 2023-03-23 08:04 | XR_ITS ---
WS: [id number] Exam: XR KUB portable [id number] Date/Time of Exam: 03/23/2023 8:04 AM Reason For Exam: constipation No bowel obstruction or free air. Large amount retained stool in the hepatic flexure and RIGHT colon. No sign of organ enlargement. Signs of prior cholecystectomy. Bony structures are intact. IMPRESSION: 1. Large amount retained stool in the hepatic flexure and RIGHT colon. 2. No acute abdominal finding.
[2023-03-23] MEDS: lisinopril 20 mg Tablet 40 MG PO (08:12)
[2023-03-23] MEDS: ARIPiprazole 10 mg Tablet 15 MG PO (08:12)
[2023-03-23] MEDS: oseltamivir phosphate 75 mg Capsule PO ×2 (08:13→18:11)
[2023-03-23] MEDS: clopidogrel 75 mg Tablet PO (08:13)
[2023-03-23] MEDS: pantoprazole DR 40 mg Tablet PO ×2 (08:13→18:11)
[2023-03-23] MEDS: citalopram 20 mg Tablet 40 MG PO (08:14)
[2023-03-23] MEDS: folic acid 1 mg Tablet PO (08:14)
[2023-03-23] MEDS: nystatin 100,000 unit/mL UDC 5 mL 500000 UNIT PO ×4 (08:15→20:41)
[2023-03-23] MEDS: loratadine 10 mg Tablet PO (08:15)
[2023-03-23] MEDS: spironolactone 25 mg Tablet 100 MG PO (08:27)
[2023-03-23] MEDS: hyDRALAzine 50 mg Tablet 75 MG PO ×3 (08:28→20:41)
[2023-03-23] MEDS: sennosides-docusate Tablet 1 TAB PO ×2 (08:28→18:11)
[2023-03-23] MEDS: NIFEdipine ER (24 hr) 30 mg Tablet 90 MG PO (08:29)
[2023-03-23] MEDS: lactulose oral liq 20 gm/30 mL UDC PO (08:29)
[2023-03-23] MEDS: budesonide 0.5 mg/2 mL Neb INHALATION ×2 (08:29→19:51)
[2023-03-23] MEDS: ipratropium-albuterol 3 mL Neb INHALATION ×3 (08:29→19:51)
[2023-03-23] MEDS: labetalol 200 mg Tablet 100 MG PO (09:57)
--- NOTE | 2023-03-23 11:33 | P.PN_ITS ---
Subjective 2 Subjective: Blood pressure is better today Complaining of constipation KUB showed significant constipation she was given lactulose Passing gas She came to transfer out of ICU Did well with PT awaiting rehab placement to [place] Vitals/I&O/Wt Last Vital Signs Temp 98.6 F 03/23/23 09:00 Pulse 99 03/23/23 10:00 Resp 24 H 03/23/23 10:00 BP 134/94 03/23/23 10:00 Pulse Ox 91 03/23/23 10:00 O2 Del Method Nasal Cannula 03/23/23 10:00 O2 Flow Rate 2 03/23/23 10:00 03/22/23 03/23/23 03/23/23 22:59 06:59 14:59 Intake Total 540 / 1150 320 / 1470 Balance 540 / 750 320 / 1070 Weight last 48 hrs Weight 94.529 kg Physical Exam 2 Narrative: Awake and alert Right-sided weakness Normotensive Currently on room air Pleasant and cooperative Anxiety well-controlled Breathing rate 15 to 20 breaths/min No conversational dyspnea Dysarthria improving Abdomen slightly distended but sluggish bowel sound Data 03/23/23 02:51 03/23/23 02:51 A&P Assessment and plan (1) Constipation: (2) Major depressive disorder, recurrent, moderate: (3) Hypertensive crisis: (4) Pancytopenia: (5) Stage III adenocarcinoma of lung: (6) Lung cancer: (7) Hypoxia: (8) COPD (chronic obstructive pulmonary disease): Plan Right-sided weakness: Improving on a gradual basis Patient had first PT session yesterday Awaiting rehab placement Hypertensive crisis improved No sign of renal artery stenosis Appreciate nephro recommendations for antihypertensive regimen Pancytopenia: Stable patient is not neutropenic, platelet count stable, white count normal Patient got 2 doses of Neupogen during hospitalization Constipation: Given lactulose today Passing gas sluggish bowel sounds No signs of obstruction With PT better ambulation and lactulose anticipating good bowel movement Can be transferred out of ICU Full code Dysphagia diet Dysarthria improving She may be able to continue dual antiplatelet therapy at the time of discharge platelets are stable Attestations 2 Medical Necessity Statement*: Continue medical management Awaiting placement, can be transferred to ICU, Diagnoses Constipation K59.00 Major depressive disorder, recurrent, moderate F33.1 Hypertensive crisis I16.9 Pancytopenia D61.818 Stage III adenocarcinoma of lung C34.90 Lung cancer C34.90 Hypoxia R09.02 COPD (chronic obstructive pulmonary disease) J44.9
--- NOTE | 2023-03-23 12:02 | USCV_ITS ---
Leann Monte Age: 47 Gender: F : 1975 Exam Date: 03/23/2023 01:23 Ordering Phys: Penny Deng MD Technologist: DOT Exam Location: [facility] [place] Indication: poorly controlled HTN on 5 different agents. r/o MARISOL. Aortic Velocity @ SMA (cm/s) 72.7 RIGHT KIDNEY LEFT KIDNEY Velocity (cm/s) Velocity (cm/s) Sys/Espinosa Sys/Espinosa Resistive Index Resistive Index 148.0 / 51.0 0.66 Proximal Renal Artery 115.7 / 42.1 0.64 125.6 / 43.0 0.66 Mid Renal Artery 167.7 / 56.8 0.66 64.5 / 26.9 0.58 Distal Renal Artery 90.1 / 31.9 0.65 32.8 / 10.7 0.67 Upper Pole 60.8 / 21.6 0.65 42.3 / 13.9 0.67 Mid Pole 74.5 / 30.4 0.59 43.0 / 16.1 0.63 Lower Pole 44.3 / 16.5 0.63 2.00 Renal Aortic Ratio 2.31 88.3 Kidney Length (mm) 101.9 FINDINGS Technically difficult study. No evidence of abdominal aortic aneurysm. There is no evidence of hemodynamically significant right renal artery stenosis. There is no evidence of hemodynamically significant left renal artery stenosis. CONCLUSIONS Limited duplex Doppler ultrasound was performed on bilateral renal artery circulation. No renal artery stenosis seen. Dr. Madina Martinez DO (Electronically Signed) Final Date: 23 March 2023 08:02 S
--- NOTE | 2023-03-23 12:48 | PC.OT ---
Pt seen for OT treatment with patient declining due to fatigue; will attempt at later time.
--- NOTE | 2023-03-23 17:39 | PC.NURSE ---
Shift Summary: Uneventful shift. Patient rested in bed for most of the day, but was occasionally up to a chair. Blood pressures have remained under control using oral meds. No bowel movement since arrival at hospital, stomach is large, and round, xray shows constipation. One dose of lactulose given today and started on senna. No bowel movement yet. Transferred to [facility] at 1745, report given to Ritika. Patient received by Kandis MENDEZ.
[2023-03-23] MEDS: glycerin adult supp 1 EACH PR (18:11)
[2023-03-23] MEDS: doxycycline 100 mg Tablet PO (18:11)
[2023-03-23] MEDS: atorvastatin 40 mg Tablet PO (20:41)
[2023-03-24] VITALS (14 sets, daily range): BP systolic 90–161; BP diastolic 64–95; PULSE 87–133; RESP 16–24; TEMP 36.4–36.8; O2SAT 91–98; BMI 35.6
[2023-03-24] MEDS: ipratropium-albuterol 3 mL Neb INHALATION ×4 (01:57→20:45)
--- NOTE | 2023-03-24 01:57 | CTR_ITS ---
PROCEDURE INFORMATION: Exam: CT Head Without Contrast Exam date and time: 03/24/2023 2:28 AM Age: 47 years old Clinical indication: Injury or trauma; Fall; Blunt trauma (contusions or hematomas); Patient HX: Patient was found out of bed sitting on floor, denies hitting head or any pain-but we are just making sure TECHNIQUE: Imaging protocol: Computed tomography of the head without contrast. Radiation optimization: All CT scans at this facility use at least one of these dose optimization techniques: automated exposure control; mA and/or kV adjustment per patient size (includes targeted exams where dose is matched to clinical indication); or iterative reconstruction. COMPARISON: CT angio headneck* [id number] 03/20/2023 5:58 AM RADIATION DOSE METRICS: Total DLP (mGy-cm): 1150.98 FINDINGS: Brain: New small acute infarcts are identified in the left basal ganglia and left frontal lobe. There is no evidence of acute hemorrhage. Cerebral ventricles: No ventriculomegaly. Paranasal sinuses: There is a small fluid level in the left sphenoid sinus. Mastoid air cells: Visualized mastoid air cells are well aerated. Bones/joints: Unremarkable. No acute fracture. Soft tissues: Unremarkable. CT/CT head wo con* [id number] IMPRESSION: New small acute infarcts in the left basal ganglia and left frontal lobe.
--- NOTE | 2023-03-24 02:08 | PC.NURSE ---
This nurse was alerted by JAVASCRIPT WEB DEVELOPER at approximately 0135 that the pt was sitting down in the floor next to the bed and recliner that her significant other was sitting in. This nurse immediately went to assess the pt with charge nurse Isamar. Vitals were obtained and were noted to be 161/ 95 for blood pressure, heart rate of 133bpm, 97.6 for temp and 91% oxygen saturation on 3L. The pt was bumped up to 4L and RT Ramila came in to assess the pt as well. No wounds were noted at the time of assessment. The pt answered to her name and told this nurse she did not hurt anywhere and denied hitting her head. The pt stated she wanted to use to bathroom. Dr. Barrera was notified of the entire situation and orders were entered by him. The Significant other was at bedside the whole time and all questions were answered. He stated You guys promptly took action and did what was needed quickly.
[2023-03-24 05:08] LABS: Basophils % 0.2 %; Eosinophils # 0.1 10^3/uL (0.0-0.8); Eosinophils % 0.6 %; Hematocrit 33.4 % (36-47); Lymphocytes # 2.1 10^3/uL (0.8-4.8); Lymphocytes % 15.8 %; Mean Corpuscular HGB Conc 32.3 g/dL (30-55); Mean Corpuscular Hemoglobin 29.9 pg (27-33); Mean Corpuscular Volume 92.5 fl (85-98); Mean Platelet Volume 11.6 fL (7.4-10.4); Monocytes # 0.6 10^3/uL (0.2-0.9); Monocytes % 4.6 %; Neutrophils # 9.95 10^3/uL (1.8-7.7); Neutrophils % 74.5 %; Nucleated Red Blood Cells % 0 %; Platelet Count 78 10^3/cmm (157-399); Red Blood Count 3.61 10^6/uL (3.85-5.65); Red Cell Distribution Width 16.7 % (12.1-15.1); White Blood Count 13.36 10^3/uL (3.29-11.43)
--- NOTE | 2023-03-24 06:51 | USCV_ITS ---
Leann Monte Age: 47 Gender: F : 1975 Exam Date: 03/24/2023 08:05 Ordering Phys: Arnol Barrera MD Technologist: [place] [facility] [place]: cva BP: / HR: 104 Rhythm: Sinus Technical Quality: Adequate MEASUREMENTS (Male / Female) Normal Values 2D ECHO LV Ejection Fraction MOD 2C 71.2 % LV Ejection Fraction 2C AL 71.4 % FINDINGS Left Ventricle Right Ventricle Right Atrium Left Atrium Mitral Valve Aortic Valve Tricuspid Valve Pulmonic Valve Pericardium Aorta IVC CONCLUSIONS Technically limited quality echocardiogram because of poor ultrasonic windows LV systolic function is normal with EF of 60-65% Bubble study has limited visualization but no visible crossover of bubbles noted right to left atrium. David Tubbs MD (Electronically Signed) Final Date: 24 March 2023 17:48 S
[2023-03-24] MEDS: budesonide 0.5 mg/2 mL Neb INHALATION ×2 (08:47→20:45)
[2023-03-24] MEDS: lisinopril 20 mg Tablet 40 MG PO (10:16)
[2023-03-24] MEDS: spironolactone 25 mg Tablet 100 MG PO (10:17)
[2023-03-24] MEDS: hyDRALAzine 50 mg Tablet 75 MG PO (10:17)
[2023-03-24] MEDS: clopidogrel 75 mg Tablet PO (10:17)
[2023-03-24] MEDS: ARIPiprazole 10 mg Tablet 15 MG PO (10:17)
[2023-03-24] MEDS: folic acid 1 mg Tablet PO (10:18)
[2023-03-24] MEDS: labetalol 200 mg Tablet 100 MG PO (10:18)
[2023-03-24] MEDS: citalopram 20 mg Tablet 40 MG PO (10:18)
[2023-03-24] MEDS: pantoprazole DR 40 mg Tablet PO ×2 (10:18→18:03)
[2023-03-24] MEDS: oseltamivir phosphate 75 mg Capsule PO ×2 (10:18→18:03)
[2023-03-24] MEDS: sennosides-docusate Tablet 1 TAB PO ×2 (10:18→18:03)
[2023-03-24] MEDS: doxycycline 100 mg Tablet PO ×2 (10:19→18:03)
[2023-03-24] MEDS: NIFEdipine ER (24 hr) 30 mg Tablet 90 MG PO (10:19)
[2023-03-24] MEDS: nystatin 100,000 unit/mL UDC 5 mL 500000 UNIT PO ×3 (10:19→18:03)
[2023-03-24] MEDS: aspirin 81 mg EC Tablet PO (10:19)
[2023-03-24] MEDS: loratadine 10 mg Tablet PO (10:19)
--- NOTE | 2023-03-24 10:36 | P.PN_ITS ---
Subjective 2 Subjective: bp controlled Medications: Reviewed: Yes Vitals/I&O/Wt Last Vital Signs Temp 98.1 F 03/24/23 08:00 Pulse 104 H 03/24/23 08:00 Resp 18 03/24/23 08:00 BP 121/68 03/24/23 08:00 Pulse Ox 92 03/24/23 08:00 O2 Del Method Nasal Cannula 03/24/23 08:00 O2 Flow Rate 4 03/24/23 08:00 03/23/23 03/24/23 03/24/23 22:59 06:59 14:59 Intake Total 50 / 50 240 / 240 Balance 50 / 50 240 / 240 Weight last 48 hrs Weight 91.354 kg Weight 94.529 kg Physical Exam 2 Narrative: Awake, no acute distress Data 03/24/23 04:44 03/23/23 02:51 Micro: Microbiology 03/17/23 16:11 Blood Culture - Final Blood 03/17/23 16:00 Blood Culture - Final Blood A&P Assessment and plan (1) Hypertensive crisis: Plan 1. Hypertensive emergency:With blood pressures of 180 systolic and diastolics more than 1 teens, status post Cardene drip. Restarted home blood pressure meds including-hydralazine labetelol, aldactone,lisinopril 40 a day, Switched amlodipine to nifedipine - BP better - , dc chlorthalidone due to risk of hyponatremia -No renal artery stenosis on doppler US. 2. Hyponatremia: mild monitor 3. Pancytopenia : s/p Neupogen 4. Acute on chronic resp failure 5. Acute CVA pt evaluated via audiovisual cart. Time spent 40 min Attestations 2 Medical Necessity Statement*: per medicine Coding Level of Care Code Acute Code for Chg Fwd Diagnoses Hypertensive crisis I16.9
--- NOTE | 2023-03-24 10:49 | P.PN_ITS ---
Subjective 2 Subjective: Patient fell yesterday, overnight events noted CT head showing lacunar infarct She is not a tPA candidate because of her thrombocytopenia We are continuing Plavix for now Patient is still constipated had a small bowel movement Awaiting placement to inpatient rehab versus snf Vitals/I&O/Wt Last Vital Signs Temp 98.1 F 03/24/23 08:00 Pulse 104 H 03/24/23 08:00 Resp 18 03/24/23 08:00 BP 121/68 03/24/23 08:00 Pulse Ox 92 03/24/23 08:00 O2 Del Method Nasal Cannula 03/24/23 08:00 O2 Flow Rate 4 03/24/23 08:00 03/23/23 03/24/23 03/24/23 22:59 06:59 14:59 Intake Total 50 / 50 240 / 240 Balance 50 / 50 240 / 240 Weight last 48 hrs Weight 91.354 kg Weight 94.529 kg Physical Exam 2 Narrative: This morning patient was getting speech evaluation and therapy Patient fell yesterday and noted to go to the bathroom She has dense right-sided hemiplegia Still has dysarthria Blood pressure better than yesterday S1, S2 tachycardia Abdomen soft GCS 15 Nonfocal Data 03/24/23 04:44 03/23/23 02:51 Micro: Microbiology 03/17/23 16:11 Blood Culture - Final Blood 03/17/23 16:00 Blood Culture - Final Blood A&P Assessment and plan (1) Generalized anxiety disorder: (2) Constipation: (3) Lung mass: (4) Acute lacunar infarction: (5) Acute CVA (cerebrovascular accident): (6) Hemiplegia affecting right dominant side: (7) Dysarthria: (8) Hypertensive crisis: Plan Acute lacunar infarct Right-sided density plegia She is not a candidate for tPA because of her thrombocytopenia, pancytopenia seems to be getting better She received 2 doses of Neupogen We are in the process of getting her accepted at inpatient rehab versus snf She has left-sided carotid occlusion Thrombocytopenia stable, she is not neutropenic anymore Afebrile Hypertensive crisis better with adjustment of antihypertensive regimen No sign of renal artery stenosis Appreciate nephro recommendations Continue PT OT and ST Patient should not try to get up on her own Counseling done Fall risk precautions Constipation: We will give her another dose of lactulose she had 1 small bowel movement yesterday Attestations 2 Medical Necessity Statement*: Continue medical management Diagnoses Generalized anxiety disorder F41.1 Constipation K59.00 Lung mass R91.8 Acute lacunar infarction I63.81 Acute CVA (cerebrovascular accident) I63.9 Hemiplegia affecting right dominant side G81.91 Dysarthria R47.1 Hypertensive crisis I16.9
[2023-03-24] MEDS: atorvastatin 40 mg Tablet PO (21:39)
[2023-03-25] VITALS (17 sets, daily range): BP systolic 90–137; BP diastolic 50–86; PULSE 83–116; RESP 18–28; TEMP 36.4–36.9; O2SAT 90–97; BMI 35.9
[2023-03-25] MEDS: ipratropium-albuterol 3 mL Neb INHALATION ×4 (01:40→20:30)
[2023-03-25] MEDS: budesonide 0.5 mg/2 mL Neb INHALATION ×2 (09:26→20:30)
--- NOTE | 2023-03-25 09:47 | P.PN_ITS ---
Subjective 2 Subjective: no new c/o Medications: Reviewed: Yes Vitals/I&O/Wt Last Vital Signs Temp 98.4 F 03/25/23 03:51 Pulse 101 H 03/25/23 09:37 Resp 18 03/25/23 09:27 BP 116/77 03/25/23 08:00 Pulse Ox 95 03/25/23 09:27 O2 Del Method Nasal Cannula 03/25/23 09:27 O2 Flow Rate 4 03/25/23 09:27 03/24/23 03/25/23 03/25/23 22:59 06:59 14:59 Intake Total 360 / 960 50 / 50 Balance 360 / 960 50 / 50 Weight last 48 hrs Weight 91.852 kg Weight 91.354 kg Physical Exam 2 Narrative: Awake, no acute distress Data 03/24/23 04:44 03/23/23 02:51 A&P Assessment and plan (1) Hypertensive crisis: Plan 1. Hypertensive emergency:With blood pressures of 180 systolic and diastolics more than 1 teens, status post Cardene drip. Restarted home blood pressure meds including-hydralazine labetelol, aldactone,lisinopril 40 a day, Switched amlodipine to nifedipine - decreased dose to 60 mg - BP better - , dc chlorthalidone due to risk of hyponatremia -No renal artery stenosis on doppler US. 2. Hyponatremia: mild monitor 3. Pancytopenia : s/p Neupogen 4. Acute on chronic resp failure 5. Acute CVA pt evaluated via audiovisual cart. Time spent 20 min Attestations 2 Medical Necessity Statement*: per rahul Coding Level of Care Code Acute Code for Chg Fwd Diagnoses Hypertensive crisis I16.9
[2023-03-25] MEDS: ARIPiprazole 10 mg Tablet 15 MG PO (10:15)
[2023-03-25] MEDS: NIFEdipine ER (24 hr) 30 mg Tablet 90 MG PO (10:15)
[2023-03-25] MEDS: spironolactone 25 mg Tablet 100 MG PO (10:15)
[2023-03-25] MEDS: sennosides-docusate Tablet 1 TAB PO ×2 (10:16→17:26)
[2023-03-25] MEDS: clopidogrel 75 mg Tablet PO (10:16)
[2023-03-25] MEDS: hyDRALAzine 50 mg Tablet 75 MG PO (10:16)
[2023-03-25] MEDS: citalopram 20 mg Tablet 40 MG PO (10:17)
[2023-03-25] MEDS: labetalol 200 mg Tablet 100 MG PO (10:17)
[2023-03-25] MEDS: lisinopril 20 mg Tablet 40 MG PO (10:17)
[2023-03-25] MEDS: loratadine 10 mg Tablet PO (10:17)
[2023-03-25] MEDS: folic acid 1 mg Tablet PO (10:18)
[2023-03-25] MEDS: doxycycline 100 mg Tablet PO ×2 (10:18→17:25)
[2023-03-25] MEDS: oseltamivir phosphate 75 mg Capsule PO ×2 (10:18→17:25)
[2023-03-25] MEDS: aspirin 81 mg EC Tablet PO (10:18)
[2023-03-25] MEDS: pantoprazole DR 40 mg Tablet PO ×2 (10:18→17:26)
[2023-03-25] MEDS: nystatin 100,000 unit/mL UDC 5 mL 500000 UNIT PO ×3 (10:19→17:25)
--- NOTE | 2023-03-25 10:53 | P.PN_ITS ---
Subjective 2 Subjective: Patient is remaining tachycardic I will like to check drug screen 1 more time has the DPOA paperwork ready Patient is stating that he got a phone call from [facility] inpatient rehab She had a bowel movement yesterday Vitals/I&O/Wt Last Vital Signs Temp 98.4 F 03/25/23 03:51 Pulse 101 H 03/25/23 09:37 Resp 18 03/25/23 09:27 BP 116/77 03/25/23 08:00 Pulse Ox 95 03/25/23 09:27 O2 Del Method Nasal Cannula 03/25/23 09:27 O2 Flow Rate 4 03/25/23 09:27 03/24/23 03/25/23 03/25/23 22:59 06:59 14:59 Intake Total 360 / 960 50 / 50 Balance 360 / 960 50 / 50 Weight last 48 hrs Weight 91.852 kg Weight 91.354 kg Physical Exam 2 Narrative: No significant movement of right-sided weakness Patient is able to check her smart watch on left wrist without any difficulty She is able to read the text and operate her watch is at the bedside Hemodynamic stable Tachycardic Euvolemic Tachypneic On 4 L Data 03/24/23 04:44 03/23/23 02:51 A&P Assessment and plan (1) Constipation: (2) Pancytopenia: (3) Lung cancer: (4) Stage III adenocarcinoma of lung: (5) Acute lacunar infarction: (6) Acute CVA (cerebrovascular accident): (7) Hemiplegia affecting right dominant side: (8) Dysarthria: (9) Lung mass: (10) Major depressive disorder, recurrent, moderate: (11) Generalized anxiety disorder: (12) Essential hypertension: Plan Hypertensive crisis: Improved on current antihypertensive regimen Appreciate nephro recommendations Tachycardia check drug screen I will request another D-dimer Patient has been bedbound due to her recurrent stroke Constipation: Patient has had 2 bowel movements in last 48 hours Continue dysphagia diet Recommending inpatient rehab she most likely will need to 3 weeks before she returns home Continue Tamiflu she has finished 8 days Pancytopenia improved in total she received 2 doses of Neupogen Full code Attestations 2 Medical Necessity Statement*: Awaiting placement Diagnoses Constipation K59.00 Pancytopenia D61.818 Lung cancer C34.90 Stage III adenocarcinoma of lung C34.90 Acute lacunar infarction I63.81 Acute CVA (cerebrovascular accident) I63.9 Hemiplegia affecting right dominant side G81.91 Dysarthria R47.1 Lung mass R91.8 Major depressive disorder, recurrent, moderate F33.1 Generalized anxiety disorder F41.1 Essential hypertension I10
[2023-03-25 12:11] LABS: D Dimer 0.88 ug/mLFEU (0-0.59)
[2023-03-25] MEDS: lactated ringers 1,000 ML 999 ML IV (14:09)
[2023-03-25] MEDS: acetaminophen 325 mg Tablet 650 MG PO (14:36)
[2023-03-25] MEDS: lactulose oral liq 20 gm/30 mL UDC 10 GM PO (17:24)
[2023-03-25] MEDS: FUROsemide 10 mg/mL SDV 2mL 20 MG IVP (17:25)
[2023-03-26] VITALS (17 sets, daily range): BP systolic 111–128; BP diastolic 63–85; PULSE 82–114; RESP 17–26; TEMP 36.3–36.9; O2SAT 91–98; BMI 36.3
[2023-03-26] MEDS: ipratropium-albuterol 3 mL Neb INHALATION ×4 (01:28→20:28)
[2023-03-26 05:54] LABS: Basophils % 0.2 %; Eosinophils # 0.1 10^3/uL (0.0-0.8); Eosinophils % 0.9 %; Hematocrit 31.3 % (36-47); Lymphocytes # 1.9 10^3/uL (0.8-4.8); Lymphocytes % 17.1 %; Mean Corpuscular HGB Conc 31.9 g/dL (30-55); Mean Corpuscular Hemoglobin 29.9 pg (27-33); Mean Corpuscular Volume 93.7 fl (85-98); Mean Platelet Volume 10.9 fL (7.4-10.4); Monocytes # 0.8 10^3/uL (0.2-0.9); Monocytes % 7.4 %; Neutrophils # 8.11 10^3/uL (1.8-7.7); Neutrophils % 72.8 %; Nucleated Red Blood Cells % 0 %; Platelet Count 121 10^3/cmm (157-399); Red Blood Count 3.34 10^6/uL (3.85-5.65); Red Cell Distribution Width 17.1 % (12.1-15.1); White Blood Count 11.13 10^3/uL (3.29-11.43)
[2023-03-26 06:16] LABS: Anion Gap 16.8 (5-19); Blood Urea Nitrogen 44 mg/dL (6-20); Calcium 9.5 mg/dL (8.5-10.5); Carbon Dioxide 23 mmol/L (22-29); Chloride 104 mmol/L (98-107); Glomerular Filtration Rate 67.1 mL/min (90-130); Glucose 105 mg/dL (65-115); Osmolality Calculated 302 mOsm/kg (285-295); Potassium 3.8 mmol/L (3.5-5.1); Sodium 140 mmol/L (136-145)
[2023-03-26] MEDS: budesonide 0.5 mg/2 mL Neb INHALATION ×2 (08:45→20:28)
--- NOTE | 2023-03-26 10:19 | XR_ITS ---
WS: [id number] Exam: XR chest 1V portable [id number] Date/Time of Exam: 03/26/2023 10:19 AM Reason For Exam: sob Comparison 03/17/2023. Again noted is a 3.2 cm LEFT suprahilar mass unchanged. The lungs are fully expanded. There are chron ic interstitial changes noted bilaterally. No consolidated infiltrates or pleural effusion. Normal ca rdiomediastinal silhouette. A right-sided Port-A-Cath is noted ending at the cavoatrial junction. Bon y structures are intact. IMPRESSION: 1. Unchanged LEFT suprahilar mass. 2. Chronic interstitial changes. No other significant finding.
[2023-03-26] MEDS: doxycycline 100 mg Tablet PO ×2 (10:23→18:00)
[2023-03-26] MEDS: lactulose oral liq 20 gm/30 mL UDC 10 GM PO (10:23)
[2023-03-26] MEDS: NIFEdipine ER (24 hr) 30 mg Tablet 60 MG PO (10:23)
[2023-03-26] MEDS: clopidogrel 75 mg Tablet PO (10:24)
[2023-03-26] MEDS: citalopram 20 mg Tablet 40 MG PO (10:24)
[2023-03-26] MEDS: hyDRALAzine 50 mg Tablet 75 MG PO (10:24)
[2023-03-26] MEDS: nystatin 100,000 unit/mL UDC 5 mL 500000 UNIT PO ×4 (10:25→20:17)
[2023-03-26] MEDS: oseltamivir phosphate 75 mg Capsule PO ×2 (10:25→18:01)
[2023-03-26] MEDS: pantoprazole DR 40 mg Tablet PO ×2 (10:26→18:01)
[2023-03-26] MEDS: aspirin 81 mg EC Tablet PO (10:27)
[2023-03-26] MEDS: ARIPiprazole 10 mg Tablet 15 MG PO (10:27)
[2023-03-26] MEDS: folic acid 1 mg Tablet PO (10:28)
[2023-03-26] MEDS: loratadine 10 mg Tablet PO (10:28)
--- NOTE | 2023-03-26 10:33 | CT_ITS ---
WS: [id number] CT HEAD NONCONTRAST HISTORY: ams TECHNIQUE: Contiguous axial imaging performed through the brain in 2.5 mm imaging. Bone and soft tiss ue windows. Sagittal and coronal reformats reviewed. All CT scans at [facility] use at least one of these dose optimization techniques: automated exposure control; mA and/or kV adjustment per pa tient size (includes targeted exams where dose is matched to clinical indication); or iterative recon struction. DLP: 1120.38 mGy.cm COMPARISON: 10/17/2022, 03/20/2023, 03/24/2023 No acute intracranial hemorrhage, midline shift or mass effect. Area of decreased attenuation in the LEFT frontal lobe and LEFT basal ganglia centered along the genu of the internal capsule are new since 03/20/2023. Mild progression since 03/24/2023 suggesting acute i nfarcts. No hemorrhage. No mass effect. No additional areas of abnormality. Ventricles: Normal size with no hydrocephalus. No inferior displacement of the cerebellar tonsils. Paranasal sinuses: Small amount of fluid in the posterior sphenoid sinuses. Mastoid air cells: Well pneumatized. Calvarium and scalp: Skull is intact with no soft tissue edema or swelling. IMPRESSION: 1. No acute intracranial hemorrhage or edema. 2. Evolving acute infarcts involving the LEFT frontal lobe and the genu LEFT internal capsule. No he morrhage. New since 03/20/2023.
[2023-03-26 10:38] LABS: ABG PH Result 7.44 (7.35-7.45); Arterial Blood Gas Hematocrit 33.6 % (37-47); Base Excess ABG 0.2 mmol/L (-2.0-2.0); Blood Gas Allen Test Pos; Blood Gas Operator Identificat CAK; Blood Gas Sample Site Radial, left; Blood Gas Sample Type Arterial; HCO3 ABG 24.2 mmol/L (22-26); Oxygen Device NC; PO2 ABG 52.6 mmHg (80.0-100.0); PO2 FiO2 Ratio Arterial Blood 0
--- NOTE | 2023-03-26 12:44 | PM.PN ---
Subjective Subjective: Patient was experiencing expressive aphasia She was also not able to understand all commands I work with Dr. Hdz who recommended repeating CT head without contrast which she is showing evolving stroke I will cancel MRI head Patient is still able to move her left arm and leg Tachypnea has improved significantly Received Lasix yesterday Vitals/I&O/Wt Last Vital Signs Temp 97.4 F L 03/26/23 11:38 Pulse 111 H 03/26/23 11:38 Resp 24 H 03/26/23 11:38 BP 111/63 03/26/23 11:38 Pulse Ox 91 03/26/23 11:38 O2 Del Method Nasal Cannula 03/26/23 11:38 O2 Flow Rate 4 03/26/23 08:45 03/25/23 03/26/23 03/26/23 22:59 06:59 14:59 Intake Total 1000 / 1100 120 / 120 Output Total 150 / 150 Balance 1000 / 1100 -30 / -30 Weight last 48 hrs Weight 92.941 kg Weight 91.852 kg Physical Exam Narrative: Patient is experiencing expressive aphasia Not able to follow commands completely She is awake, makes eye contact Moving her left upper and lower extremities Seems anxious and changing her position in the bed She is wearing her glasses S1, S2 Currently on 4 L Abdomen soft and distended Urinary Catheter Management: Galdamez: Cath Placed During This Visit: yes Urinary Catheter Date of Insertion: 03/26/23 Urinary Catheter Time of Insertion: 12:00 Data 03/26/23 05:39 03/26/23 05:39 A&P Assessment and plan (1) Major depressive disorder, recurrent, moderate: (2) Generalized anxiety disorder: (3) Hypertensive crisis: (4) Occlusion of left internal carotid artery: (5) Constipation: (6) Pancytopenia: (7) Stage III adenocarcinoma of lung: (8) Hemiplegia affecting right dominant side: (9) Dysarthria: (10) Acute CVA (cerebrovascular accident): (11) Acute lacunar infarction: (12) Headache: (13) Left upper lobe pulmonary nodule: (14) Insomnia: Qualifiers: Insomnia type: adjustment Qualified Code(s): F51.02 - Adjustment insomnia Plan New neurological changeSince last night Patient has worsened from dysarthria to expressive aphasia She is also not able to follow commands completely Able to make eye contact Spoke with Dr. Hdz She is on dual antiplatelet therapy Pancytopenia improving she did receive 2 doses of Neupogen during hospitalization Hypertensive crisis: Holding antihypertensive regimen patient became hypotensive yesterday, I had to give her a bolus and IV fluid which made her tachypneic, then she received IV Lasix Holding attempt this regimen today as well Permissive hypertension Lung cancer, COPD, hypoxia requiring 3 to 4 L of oxygen Patient is still tachycardic monitor for any signs of atrial flutter or A-fib Constipation, resolved Full code Dysphagia diet We were looking for inpatient [facility] rehab correctional counselor/case manager were made aware about today's change in neurological status Attestations Medical Necessity Statement*: continue med care Diagnoses Major depressive disorder, recurrent, moderate F33.1 Generalized anxiety disorder F41.1 Hypertensive crisis I16.9 Occlusion of left internal carotid artery I65.22 Constipation K59.00 Pancytopenia D61.818 Stage III adenocarcinoma of lung C34.90 Hemiplegia affecting right dominant side G81.91 Dysarthria R47.1 Acute CVA (cerebrovascular accident) I63.9 Acute lacunar infarction I63.81 Headache R51.9 Left upper lobe pulmonary nodule R91.1 Adjustment insomnia F51.02 Insomnia type: adjustment
--- NOTE | 2023-03-26 13:31 | P.PN_ITS ---
Subjective 2 Subjective: no new complaints Medications: Reviewed: Yes Vitals/I&O/Wt Last Vital Signs Temp 97.4 F L 03/26/23 11:38 Pulse 111 H 03/26/23 11:38 Resp 24 H 03/26/23 11:38 BP 111/63 03/26/23 11:38 Pulse Ox 91 03/26/23 11:38 O2 Del Method Nasal Cannula 03/26/23 11:38 O2 Flow Rate 4 03/26/23 08:45 03/25/23 03/26/23 03/26/23 22:59 06:59 14:59 Intake Total 1000 / 1100 120 / 120 Output Total 150 / 150 Balance 1000 / 1100 -30 / -30 Weight last 48 hrs Weight 92.941 kg Weight 91.852 kg Physical Exam 2 Narrative: Awake, no acute distress Urinary Catheter Management: Galdamez: Cath Placed During This Visit: yes Urinary Catheter Date of Insertion: 03/26/23 Urinary Catheter Time of Insertion: 12:00 Data 03/26/23 05:39 03/26/23 05:39 A&P Assessment and plan (1) Hypertensive crisis: Plan 1. Hypertensive emergency:With blood pressures of 180 systolic and diastolics more than 1 teens, status post Cardene drip. Restarted home blood pressure meds including-hydralazine labetelol, aldactone,lisinopril 40 a day, Switched amlodipine to nifedipine - decreased dose to 60 mg and decreased hydralazinre to 50 mg --> meds on hold now sec to hypotension and permissive hypertension in setting of acute stroke - , dcd chlorthalidone due to risk of hyponatremia -No renal artery stenosis on doppler US. 2. Hyponatremia: improved 3. Pancytopenia : s/p Neupogen 4. Acute on chronic resp failure 5. Acute CVA pt evaluated via audiovisual cart. Time spent 20 min Attestations 2 Medical Necessity Statement*: per medicine Coding Level of Care Code Acute Code for Chg Fwd Diagnoses Hypertensive crisis I16.9
--- NOTE | 2023-03-26 14:58 | P.CONIM_ITS ---
Providers/Reason For Consult 2 Consulting Physician/Specialty*: Madiha Thompson MD Reason for Consult*: acute change in stroke Attending Physician: Ella Thompson MD Primary Care Provider: Jean Iniguez DO History of Present Illness History of Present Illness Leann Monte is a 47 year old woman admitted here 03/17/2023 with shortness of breath, fever and hypoxia. The plan was for steroids and IV antibiotics. She has been on pemetrexed/carboplatinum/nivolumab for large cell cancer of the lung. She was pretty short of breath despite 3 L of oxygen and then she had a stroke at 3:30 in the morning 03/20/2022. She was moderately weak on the right and dysarthric. CT head was negative and CTA showed chronic left carotid occlusion. [facility] was on-call for stroke and recommended against TNK because platelet count was 40. By the following morning her hemiplegia was dense. She was on aspirin and Plavix. Echocardiogram 03/24/2023 was limited because of poor ultrasonic windows but ejection fraction was 60 to 65% and bubble study was negative. She developed new kidney failure thought to be related to severe hypertension and her blood pressure had to be lowered. This morning she had new onset of global aphasia. Her is at the bedside and shows good understanding. Her first neurologic symptoms occurred in September, when she presented with dizziness. CT head was unremarkable. CT angiogram showed left internal carotid artery occlusion of the proximal left internal carotid artery. Also noted was a spiculated mass in the left upper lobe that proved to be large cell lung cancer on further workup. She has a history of multiple miscarriages. MRI brain from 09/30/2022 showed a shower of tiny micro emboli described by the radiologist as lacunar infarcts but these were not small vessel they were end vessel lesions. Review of Systems 2 Narrative: She has chronic back pain. She is looked pretty uncomfortable to her . She has chronic posttraumatic stress disorder and depression. Medications/Allergies Home Medications Medication Instructions Recorded Confirmed Last Taken Type aspirin 81 mg tablet,delayed 81 mg PO DAILY 30 days #30 tabs 10/01/22 03/17/23 03/17/23 Rx release budesonide-formoterol HFA 160 2 puff inhalation BID #10.2 grams 08/08/23 01/10/24 01/10/24 Rx mcg-4.5 mcg/actuation aerosol inhaler (Symbicort) lisinopril 20 mg tablet 40 mg (2 x 20 mg) PO DAILY #90 tabs 10/17/22 03/17/23 03/17/23 Rx clopidogrel 75 mg tablet (Plavix) 75 mg PO DAILY 30 days #30 tabs 10/26/22 03/17/23 03/17/23 Rx nicotine (polacrilex) 4 mg buccal 4 mg buccal Q6H PRN nicotine 10/26/22 03/17/23 11/22/22 Rx lozenge cravings #108 ea nicotine See Rx Instructions transdermal 10/26/22 03/17/23 02/01/23 Rx 21mg/24hr-14mg/24hr-7mg/24hr daily .COMPLEX #56 patches transderm patches,sequentl omega-3 fatty acids 1,000 mg 1,000 mg PO DAILY 11/30/22 03/17/23 03/17/23 History capsule aripiprazole 15 mg tablet 15 mg PO DAILY #30 tabs 12/16/22 03/17/23 03/17/23 Rx citalopram 40 mg tablet 40 mg PO DAILY #90 tabs 12/16/22 03/17/23 03/17/23 Rx cyclobenzaprine 10 mg tablet 10 mg PO BEDTIME PRN muscle spasm 12/16/22 03/17/23 01/30/23 Rx #30 tabs hydralazine 10 mg tablet 10 mg PO BID unknown 01/04/23 03/17/23 02/01/23 History carboplatin 10 mg/mL intravenous 425 mg (42.5 mL) IV Q21D #45 mL 01/25/23 03/17/23 Unknown Rx solution nivolumab 120 mg/12 mL intravenous 360 mg (36 mL) IV .[id number] 12 01/25/23 03/17/23 Unknown Rx solution (Opdivo) months #3 vials pemetrexed 500 mg intravenous 980 mg IV Q21D #1 ea 01/25/23 03/17/23 Unknown Rx powder for solution dexamethasone 4 mg tablet 4 mg PO DIRECTED Chemotherapy 02/26/23 03/17/23 Unknown Rx #24 tabs folic acid 1 mg tablet 1 mg PO DAILY #30 tabs 02/26/23 03/17/23 Unknown Rx ondansetron HCl 4 mg tablet 4 mg PO QID PRN Nausea/vomiting 02/26/23 03/17/23 Unknown Rx #30 tabs prochlorperazine maleate 10 mg 10 mg PO Q4H PRN Mild Nausea #30 02/26/23 03/17/23 Unknown Rx tablet (Compazine) tabs lidocaine-prilocaine 2.5 %-2.5 % 1 g topical DIRECTED PRN 03/09/23 03/17/23 Unknown Rx topical cream Port-a-Cath #30 grams olanzapine 10 mg tablet (Zyprexa) 5 - 10 mg (0.5 - 1 x 10 mg) PO 03/09/23 03/17/23 Unknown Rx DAILY #30 tabs tramadol 50 mg tablet 50 mg PO BID PRN pain #60 tabs 03/09/23 03/17/23 Unknown Rx methylprednisolone 4 mg tablets in See Rx Instructions PO .COMPLEX 03/14/23 03/17/23 03/17/23 Rx a dose pack (Medrol (Dorian)) #21 ea oseltamivir 75 mg capsule (Tamiflu) 75 mg PO BID 5 days #10 caps 03/14/23 03/17/23 Unknown Rx albuterol sulfate 90 mcg/actuation 2 puff inhalation Q6H PRN 03/17/23 03/17/23 Unknown History aerosol inhaler Shortness Of Breath Or Wheezing buspirone 10 mg tablet 5 - 10 mg PO BID PRN Anxiety 03/17/23 03/17/23 Unknown History hydroxyzine HCl 50 mg tablet 50 - 100 mg PO BEDTIME PRN Anxiety 03/17/23 03/17/23 Unknown History labetalol 100 mg tablet 100 mg PO BID 03/17/23 03/20/23 03/17/23 History meloxicam 7.5 mg tablet 7.5 mg PO DAILY PRN inflamation 03/17/23 03/17/23 Unknown History spironolactone 25 mg tablet 25 mg PO DAILY Edema 03/17/23 03/17/23 Unknown History trazodone 100 mg tablet 200 mg PO BEDTIME PRN insomnia 03/17/23 03/17/23 Unknown History Allergies Allergy/AdvReac Type Severity Reaction Status Date / Time Penicillins Allergy Severe Anaphylaxis Verified 03/17/23 08:24 morphine Allergy Intermediate ADR-Vomitin Verified 03/17/23 08:24 g naproxen Allergy Intermediate ADR-Vomitin Verified 03/17/23 08:24 g lorazepam [From Ativan] AdvReac Severe Becomes Verified 03/17/23 08:24 aggressive. EGGS AdvReac Severe N & V, Uncoded 03/17/23 08:24 Stomach pain, Throat swells shut flu shot AdvReac Severe N & V, Uncoded 03/17/23 08:24 Stomach pain, Throat swells shut nuts AdvReac Severe Vomiting & Uncoded 03/17/23 08:24 throat swells Current Medications Generic Name Dose Route Start Last Admin Trade Name Freq PRN Reason Stop Dose Admin Acetaminophen 650 mg 03/17/23 15:35 03/25/23 14:36 Acetaminophen 325 Mg Tablet PO 650 mg Q6H PRN Administration Mild/Mod Pain Or Temp >/= 101 Albuterol/Ipratropium 3 ml 03/17/23 20:00 03/26/23 13:54 Ipratropium-Albuterol 3 Ml Neb INHALATION 3 ml Q6H.RESP JAY JAY Administration Aripiprazole 15 mg 03/18/23 09:00 03/26/23 10:27 Aripiprazole 10 Mg Tablet PO 15 mg DAILY JAY JAY Administration Aspirin 81 mg 03/18/23 09:00 03/26/23 10:27 Aspirin 81 Mg Ec Tablet PO 81 mg DAILY JAY JAY Administration Atorvastatin Calcium 40 mg 03/20/23 21:00 03/25/23 23:13 Atorvastatin 40 Mg Tablet PO Not Given BEDTIME JAY JAY Budesonide 0.5 mg 03/17/23 20:00 03/26/23 08:45 Budesonide 0.5 Mg/2 Ml Neb INHALATION 0.5 mg BID.RESPIRATORY JAY JAY Administration Citalopram Hydrobromide 40 mg 03/18/23 09:00 03/26/23 10:24 Citalopram 20 Mg Tablet PO 40 mg DAILY JAY JAY Administration Clopidogrel Bisulfate 75 mg 03/18/23 09:00 03/26/23 10:24 Clopidogrel 75 Mg Tablet PO 75 mg DAILY JAY JAY Administration Doxycycline Monohydrate 100 mg 03/23/23 18:00 03/26/23 10:23 Doxycycline 100 Mg Tablet PO 100 mg BID JAY JAY Administration Protocol Folic Acid 1 mg 03/18/23 09:00 03/26/23 10:28 Folic Acid 1 Mg Tablet PO 1 mg DAILY JAY JAY Administration Labetalol HCl 100 mg 03/18/23 09:00 03/25/23 10:17 Labetalol 200 Mg Tablet PO 100 mg DAILY JAY JAY Administration Labetalol HCl 10 mg 03/20/23 12:13 03/23/23 03:54 Labetalol 5 Mg/Ml Sdv 20ml IVP 10 mg Q4H PRN Administration Blood pressure greater than 180/100 mmHg Lactulose 10 gm 03/25/23 17:05 03/26/23 10:23 Lactulose Oral Liq 20 Gm/30 Ml Udc PO 10 gm DAILY JAY JAY Administration Lisinopril 40 mg 03/18/23 09:00 03/25/23 10:17 Lisinopril 20 Mg Tablet PO 40 mg DAILY JAY JAY Administration Loratadine 10 mg 03/17/23 15:40 03/26/23 10:28 Loratadine 10 Mg Tablet PO 10 mg DAILY JAY JAY Administration Nifedipine 60 mg 03/26/23 09:00 03/26/23 10:23 Nifedipine Er (24 Hr) 30 Mg Tablet PO 60 mg DAILY JAY JAY Administration Nystatin 500,000 unit 03/17/23 17:00 03/26/23 13:07 Nystatin 100,000 Unit/Ml Udc 5 Ml PO 500,000 unit QID JAY JAY Administration Ondansetron HCl 4 mg 03/17/23 15:35 03/18/23 17:21 Ondansetron 2 Mg/Ml Sdv 2 Ml IVP 4 mg Q6H PRN Administration vomiting, or N/V if npo Oseltamivir Phosphate 75 mg 03/17/23 18:00 03/26/23 10:25 Oseltamivir Phosphate 75 Mg Capsule PO 75 mg BID JAY JAY Administration Pantoprazole Sodium 40 mg 03/18/23 18:00 03/26/23 10:[address] 40 Mg Tablet PO 40 mg BID [facility] Administration Senna/Docusate Sodium 1 tab 03/23/23 09:00 03/26/23 10:28 Sennosides-Docusate Tablet PO Not Given BID [facility] Spironolactone 100 mg 03/23/23 08:15 03/25/23 10:15 Spironolactone 25 Mg Tablet PO 100 mg DAILY JAY JAY Administration Trazodone HCl 200 mg 03/17/23 17:38 03/19/23 21:34 Trazodone 100 Mg Tablet PO 200 mg BEDTIME PRN Administration insomnia PFSH Acute 2 PFSH: Medical History (Updated 03/26/23 @ 15:18 by Camille Hdz MD) Lung cancer COPD (chronic obstructive pulmonary disease) Acute lacunar infarction Carotid artery, internal, occlusion Essential hypertension Port-A-Cath in place 02/02 Dr. 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 Nicotine dependence, cigarettes, uncomplicated Hx of nephrolithotomy with removal of calculi Major depressive disorder, recurrent, moderate Post-traumatic stress disorder, chronic Generalized anxiety disorder Surgical History History of removal of ovarian cyst Hx of lithotripsy Hx of hernia repair Hx of cholecystectomy Family History Other CAD (coronary artery disease) Cancer Hypertension Psychiatric illness Stroke Denies family history of Diabetes Chronic kidney disease (CKD) Social History Smoking and tobacco/nicotine status: former use of tobacco/nicotine Quit status (tobacco/nicotine): has quit using Year quit tobacco: 2022 Former quit date comment: still use nicotine patches Second hand smoke exposure: Yes Alcohol intake: never Caregiver/support person: Yes Lives independently: Yes Household members: significant other Housing: House Current occupational status: employed Female Reproductive History: Para: 0 Spontaneous abortions: Yes (all 6 pregnancies) Vitals/I&O/Wt Last Vital Signs Temp 97.4 F L 03/26/23 11:38 Pulse 104 H 03/26/23 13:40 Resp 20 H 03/26/23 13:30 BP 111/63 03/26/23 11:38 Pulse Ox 94 03/26/23 13:30 O2 Del Method Nasal Cannula 03/26/23 13:30 O2 Flow Rate 5 03/26/23 13:30 03/25/23 03/26/23 03/26/23 22:59 06:59 14:59 Intake Total 1000 / 1100 120 / 120 Output Total 150 / 150 Balance 1000 / 1100 -30 / -30 Weight last 48 hrs Weight 204 lb 14.4 oz Weight 202 lb 8 oz Physical Exam 2 Narrative: General: Obese middle-aged woman who has an apathetic appearance. Mental status exam: She follows axial commands such as close your eyes, open your eyes . She does not follow any appendicular commands such as hold up your hand, etc. She regards the examiner. No speech. No vocalizations. Cranial nerves: I could not establish whether she has a visual field cut but I am suspicious that she has a field cut on the right. She has flattening of the right nasolabial fold. Full eye movements and no gaze preference. Tongue midline in the mouth and she is managing her secretions. Motor: Flaccid throughout the right side. Brisk triple flexion response in the right foot and leg. Spontaneously full movements throughout the left side. Sensation: She does not react to pinch or pinprick in the right arm or leg. Coordination no specifics but cerebellar signs. HEENT she is mildly diaphoretic. She is short of breath. Neck: Supple. No carotid bruit. Chest: Clear to auscultation with decreased breath sounds throughout. Cardiovascular: S1 and S2 normal without murmur or gallop. Extremities: No rash. CT scan of the head from today shows a large lucency in the distribution of the left middle cerebral artery anterior branch. Grossly I do not see involvement of the posterior branch of the left middle cerebral artery. The internal capsule is heavily involved. CT angiogram from 03/20 once again demonstrates a short segment of densely atherosclerotic left carotid occlusion in the proximal left internal carotid artery Urinary Catheter Management: Galdamez: Cath Placed During This Visit: yes Urinary Catheter Date of Insertion: 03/26/23 Urinary Catheter Time of Insertion: 12:00 Data 03/26/23 05:39 03/26/23 05:39 A&P Assessment and plan (1) Acute left arterial ischemic stroke, ICA (internal carotid artery): 47-year-old woman with large cell lung cancer who presents with progressive embolization in the distribution of the left carotid artery which is occluded at its origin. Presumably these emboli are coming from the collateral circulation. I am concerned that she has developed acute renal failure at the same time as acute stroke and that the cause of both of these may be micro emboli. She already had signs of hypercoagulability as she has had multiple miscarriages. She has not previously been worked up for anticardiolipin antibody, antiphospholipid antibody syndrome and other hypercoagulable state and it might be worthwhile doing that now although it is not a good time to consider anticoagulation. I warned her significant other that she may continue to deteriorate despite all efforts. I think the best that we can do is hydrate her as much as her renal failure allows, prevent pneumonia, prevent bedsores etc. She could further deteriorate. (2) Occlusion of left internal carotid artery: (3) Hemiplegia affecting right dominant side: (4) Hypercoagulable state: Her underlying large cell lung cancer may be the culprit for all of this. (5) Stage III adenocarcinoma of lung: Consult Attestations 2 Medical Necessity Statement: She is neurologically and medically unstable. Time Spent in Patient Care: 90 minutes Coding Level of Care Code Acute Code for [facility] Diagnoses Acute left arterial ischemic stroke, ICA (internal carotid artery) I63.232 Occlusion of left internal carotid artery I65.22 Hemiplegia affecting right dominant side G81.91 Hypercoagulable state D68.59 Stage III adenocarcinoma of lung C34.90
[2023-03-26] MEDS: hyDRALAzine 50 mg Tablet PO ×2 (16:21→20:17)
[2023-03-26] MEDS: acetaminophen 325 mg Tablet 650 MG PO (18:01)
[2023-03-26] MEDS: sennosides-docusate Tablet 1 TAB PO (18:01)
[2023-03-26 19:22] LABS: Amphetamines Screen Urine Negative (Negative); Barbiturates Screen Urine Negative (Negative); Benzodiazepines Screen Urine Positive (Negative); Cocaine Screen Urine Negative (Negative); Opiate Screen Urine Negative (Negative); PCP Screen Urine Negative (Negative); THC Screen Urine Negative (Negative)
[2023-03-26] MEDS: atorvastatin 40 mg Tablet PO (20:17)
[2023-03-27] VITALS (13 sets, daily range): BP systolic 121–138; BP diastolic 60–92; PULSE 86–119; RESP 18–24; TEMP 35.9–36.6; O2SAT 91–100
[2023-03-27] MEDS: ipratropium-albuterol 3 mL Neb INHALATION ×4 (02:59→20:15)
[2023-03-27 05:45] LABS: Basophils % 0.3 %; Eosinophils # 0.2 10^3/uL (0.0-0.8); Eosinophils % 1.4 %; Hematocrit 35.3 % (36-47); Lymphocytes % 17.2 %; Mean Corpuscular HGB Conc 32.6 g/dL (30-55); Mean Corpuscular Hemoglobin 30.3 pg (27-33); Mean Corpuscular Volume 92.9 fl (85-98); Mean Platelet Volume 10.9 fL (7.4-10.4); Monocytes # 0.9 10^3/uL (0.2-0.9); Monocytes % 7.6 %; Neutrophils # 8.49 10^3/uL (1.8-7.7); Neutrophils % 71.6 %; Nucleated Red Blood Cells % 0 %; Platelet Count 181 10^3/cmm (157-399); Red Cell Distribution Width 17.2 % (12.1-15.1); White Blood Count 11.84 10^3/uL (3.29-11.43)
[2023-03-27 06:02] LABS: Blood Urea Nitrogen 36 mg/dL (6-20); Calcium 9.6 mg/dL (8.5-10.5); Carbon Dioxide 25 mmol/L (22-29); Chloride 106 mmol/L (98-107); Glomerular Filtration Rate 67.1 mL/min (90-130); Glucose 115 mg/dL (65-115); Osmolality Calculated 307 mOsm/kg (285-295); Sodium 144 mmol/L (136-145)
[2023-03-27 06:08] LABS: Anion Gap 17.1 (5-19); Potassium 4.1 mmol/L (3.5-5.1)
[2023-03-27] MEDS: budesonide 0.5 mg/2 mL Neb INHALATION ×2 (07:45→20:15)
[2023-03-27] MEDS: lactulose oral liq 20 gm/30 mL UDC 10 GM PO (09:05)
[2023-03-27] MEDS: nystatin 100,000 unit/mL UDC 5 mL 500000 UNIT PO ×4 (09:06→20:38)
[2023-03-27] MEDS: clopidogrel 75 mg Tablet PO (09:06)
[2023-03-27] MEDS: oseltamivir phosphate 75 mg Capsule PO ×2 (09:06→17:35)
[2023-03-27] MEDS: ARIPiprazole 10 mg Tablet 15 MG PO (09:06)
[2023-03-27] MEDS: folic acid 1 mg Tablet PO (09:06)
[2023-03-27] MEDS: sennosides-docusate Tablet 1 TAB PO ×2 (09:06→17:35)
[2023-03-27] MEDS: hyDRALAzine 50 mg Tablet PO ×3 (09:06→20:37)
[2023-03-27] MEDS: citalopram 20 mg Tablet 40 MG PO (09:06)
[2023-03-27] MEDS: pantoprazole DR 40 mg Tablet PO ×2 (09:07→17:35)
[2023-03-27] MEDS: aspirin 81 mg EC Tablet PO (09:07)
[2023-03-27] MEDS: doxycycline 100 mg Tablet PO ×2 (09:07→17:35)
[2023-03-27] MEDS: loratadine 10 mg Tablet PO (09:07)
--- NOTE | 2023-03-27 10:56 | P.PN_ITS ---
Subjective 2 Subjective: no newc/o Medications: Reviewed: Yes Vitals/I&O/Wt Last Vital Signs Temp 97.8 F 03/27/23 07:51 Pulse 105 H 03/27/23 07:56 Resp 18 03/27/23 07:51 BP 136/92 03/27/23 07:51 Pulse Ox 91 03/27/23 07:51 O2 Del Method Nasal Cannula 03/27/23 07:51 O2 Flow Rate 5 03/27/23 04:08 03/26/23 03/27/23 03/27/23 22:59 06:59 14:59 Intake Total 50 / 170 50 / 50 Output Total 600 / 750 550 / 1300 Balance -550 / -580 -550 / -1130 50 / 50 Weight last 48 hrs Weight 93.077 kg Weight 92.941 kg Physical Exam 2 Narrative: Awake, no acute distress Urinary Catheter Management: Galdamez: Cath Placed During This Visit: yes Reason for Continuing Indwelling Catheter: Other Urinary Catheter Date of Insertion: 03/26/23 Urinary Catheter Time of Insertion: 12:00 Data 03/27/23 04:52 03/27/23 04:52 A&P Assessment and plan (1) Hypertensive crisis: Plan 1. Hypertensive emergency:With blood pressures of 180 systolic and diastolics more than 1 teens, status post Cardene drip. Restarted home blood pressure meds including-hydralazine labetelol, aldactone,lisinopril 40 a day, Switched amlodipine to nifedipine - decreased dose to 60 mg and decreased hydralazinre to 50 mg --> meds on hold now sec to hypotension and permissive hypertension in setting of acute stroke - , dcd chlorthalidone due to risk of hyponatremia -No renal artery stenosis on doppler US. 2. Hyponatremia: improved 3. Pancytopenia : s/p Neupogen 4. Acute on chronic resp failure 5. Acute CVA pt evaluated via audiovisual cart. Time spent 20 min Attestations 2 Medical Necessity Statement*: per medicine Coding Level of Care Code Acute Code for Chg Fwd Diagnoses Hypertensive crisis I16.9
[2023-03-27] MEDS: atorvastatin 40 mg Tablet PO (20:37)
[2023-03-28] VITALS (14 sets, daily range): BP systolic 102–129; BP diastolic 60–88; PULSE 106–124; RESP 17–26; TEMP 36.2–36.7; O2SAT 90–95
[2023-03-28] MEDS: ipratropium-albuterol 3 mL Neb INHALATION ×4 (01:41→21:10)
[2023-03-28] MEDS: budesonide 0.5 mg/2 mL Neb INHALATION ×2 (08:07→21:10)
[2023-03-28] MEDS: oseltamivir phosphate 75 mg Capsule PO ×2 (08:27→17:13)
[2023-03-28] MEDS: loratadine 10 mg Tablet PO (08:32)
[2023-03-28] MEDS: pantoprazole DR 40 mg Tablet PO ×2 (08:32→17:13)
[2023-03-28] MEDS: doxycycline 100 mg Tablet PO ×2 (08:32→17:13)
[2023-03-28] MEDS: nystatin 100,000 unit/mL UDC 5 mL 500000 UNIT PO ×3 (08:32→20:06)
[2023-03-28] MEDS: lactulose oral liq 20 gm/30 mL UDC 10 GM PO (08:32)
[2023-03-28] MEDS: ARIPiprazole 10 mg Tablet 15 MG PO (08:32)
[2023-03-28] MEDS: clopidogrel 75 mg Tablet PO (08:33)
[2023-03-28] MEDS: citalopram 20 mg Tablet 40 MG PO (08:33)
[2023-03-28] MEDS: folic acid 1 mg Tablet PO (08:33)
[2023-03-28] MEDS: hyDRALAzine 50 mg Tablet PO ×3 (08:33→20:06)
[2023-03-28] MEDS: aspirin 81 mg EC Tablet PO (08:33)
[2023-03-28] MEDS: sennosides-docusate Tablet 1 TAB PO ×2 (08:33→17:13)
--- NOTE | 2023-03-28 10:58 | P.PN_ITS ---
Subjective 2 Subjective: This morning patient is able to answer questions and simple yes and no format Currently on 5 L When asked if she needs a stool softener she stated no Vitals/I&O/Wt Last Vital Signs Temp 97.6 F 03/28/23 08:00 Pulse 113 H 03/28/23 08:00 Resp 22 H 03/28/23 08:00 BP 124/88 03/28/23 08:00 Pulse Ox 93 03/28/23 08:00 O2 Del Method Nasal Cannula 03/28/23 08:00 O2 Flow Rate 5 03/28/23 08:00 03/27/23 03/28/23 03/28/23 22:59 06:59 14:59 Intake Total 50 / 150 50 / 50 Output Total 800 / 800 100 / 900 Balance -750 / -650 -100 / -750 50 / 50 Weight last 48 hrs Weight 92.215 kg Weight 93.077 kg Physical Exam 2 Narrative: Patient is answering questions in simple yes and no format Able to comprehend Dysarthria Expressive aphasia Right-sided dense hemiplegia Patient is able to move her left extremities without any difficulty Currently on 5 L Urinary Catheter Management: Galdamez: Cath Placed During This Visit: yes Reason for Continuing Indwelling Catheter: Other Urinary Catheter Date of Insertion: 03/26/23 Urinary Catheter Time of Insertion: 12:00 Data 03/27/23 04:52 03/27/23 04:52 A&P Assessment and plan (1) Major depressive disorder, recurrent, moderate: (2) Hypoxia: (3) Lung mass: (4) Acute lacunar infarction: (5) Acute CVA (cerebrovascular accident): (6) Constipation: (7) Hypercoagulable state: (8) Occlusion of left internal carotid artery: (9) Hypertensive crisis: Plan Hypertensive crisis improved Hypercoagulable state related to cancer Appreciate neuro recommendations Patient is awaiting placement She has been having evolving stroke related symptoms Dysarthria has worsened Working with PT Afebrile Attestations 2 Medical Necessity Statement*: Awaiting placement Diagnoses Major depressive disorder, recurrent, moderate F33.1 Hypoxia R09.02 Lung mass R91.8 Acute lacunar infarction I63.81 Acute CVA (cerebrovascular accident) I63.9 Constipation K59.00 Hypercoagulable state D68.59 Occlusion of left internal carotid artery I65.22 Hypertensive crisis I16.9
--- NOTE | 2023-03-28 11:31 | ECG_ITS ---
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 Measurements Intervals [place] Rate: 122 P: 60 FL: 110 QRS: 37 QRSD: 89 T: 102 QT: 345 QTc: 492 Interpretive Statements SINUS TACHYCARDIA WITH SHORT FL INTERVAL ST DEVIATION AND MODERATE T-WAVE ABNORMALITY, CONSIDER LATERAL ISCHEMIA [-0.1+ mV T-WAVE IN I/aVL/V5/V6] Compared to ECG 03/20/2023 06:16:30 Short FL interval now present Possible ischemia now present T-wave abnormality still present Electronically Signed On 03-29-2023 9:47:21 PEARL STRINGER by Carlos A Nuñez M.D. [id number]
--- NOTE | 2023-03-28 11:49 | PC.OT ---
Pt declines OT treatment today 03/28/2013; will attempt again at later time.
--- NOTE | 2023-03-28 17:04 | P.PN_ITS ---
Subjective 2 Subjective: no new complaints Medications: Reviewed: Yes Vitals/I&O/Wt Last Vital Signs Temp 97.2 F L 03/28/23 16:58 Pulse 114 H 03/28/23 16:58 Resp 18 03/28/23 16:58 BP 126/87 03/28/23 16:58 Pulse Ox 91 03/28/23 16:58 O2 Del Method Nasal Cannula 03/28/23 16:58 O2 Flow Rate 4 03/28/23 14:06 03/28/23 03/28/23 03/28/23 06:59 14:59 22:59 Intake Total 100 / 100 Output Total 100 / 900 Balance -100 / -750 100 / 100 Weight last 48 hrs Weight 92.215 kg Weight 93.077 kg Physical Exam 2 Narrative: Awake, no acute distress Urinary Catheter Management: Galdamez: Cath Placed During This Visit: yes Reason for Continuing Indwelling Catheter: Other Urinary Catheter Date of Insertion: 03/26/23 Urinary Catheter Time of Insertion: 12:00 Data 03/27/23 04:52 03/27/23 04:52 A&P Assessment and plan (1) Hypertensive crisis: Plan 1. Hypertensive emergency:With blood pressures of 180 systolic and diastolics more than 1 teens, status post Cardene drip. Restarted home blood pressure meds including-hydralazine labetelol, aldactone,lisinopril 40 a day, Switched amlodipine to nifedipine - decreased dose to 60 mg and decreased hydralazinre to 50 mg --> meds on hold now sec to hypotension and permissive hypertension in setting of acute stroke - , dcd chlorthalidone due to risk of hyponatremia -No renal artery stenosis on doppler US. 2. Hyponatremia: improved 3. Pancytopenia : s/p Neupogen 4. Acute on chronic resp failure 5. Acute CVA pt evaluated via audiovisual cart. Time spent 20 min Attestations 2 Medical Necessity Statement*: per rahul Coding Level of Care Code Acute Code for Chg Fwd Diagnoses Hypertensive crisis I16.9
[2023-03-28] MEDS: saline nasal spray 44mL Btl 1 SPRAY NASAL (17:14)
[2023-03-28] MEDS: atorvastatin 40 mg Tablet PO (20:06)
[2023-03-29] VITALS (14 sets, daily range): BP systolic 95–126; BP diastolic 68–83; PULSE 97–126; RESP 18–24; TEMP 36.3–36.9; O2SAT 93–97
[2023-03-29] MEDS: ipratropium-albuterol 3 mL Neb INHALATION ×3 (02:55→14:52)
[2023-03-29] MEDS: budesonide 0.5 mg/2 mL Neb INHALATION (09:04)
[2023-03-29] MEDS: oseltamivir phosphate 75 mg Capsule PO (09:28)
[2023-03-29] MEDS: doxycycline 100 mg Tablet PO (09:28)
[2023-03-29] MEDS: nystatin 100,000 unit/mL UDC 5 mL 500000 UNIT PO ×4 (09:28→22:39)
[2023-03-29] MEDS: lactulose oral liq 20 gm/30 mL UDC 10 GM PO (09:28)
[2023-03-29] MEDS: citalopram 20 mg Tablet 40 MG PO (09:29)
[2023-03-29] MEDS: ARIPiprazole 10 mg Tablet 15 MG PO (09:29)
[2023-03-29] MEDS: sennosides-docusate Tablet 1 TAB PO ×2 (09:30→17:01)
[2023-03-29] MEDS: aspirin 81 mg EC Tablet PO (09:30)
[2023-03-29] MEDS: clopidogrel 75 mg Tablet PO (09:30)
[2023-03-29] MEDS: folic acid 1 mg Tablet PO (09:30)
[2023-03-29] MEDS: loratadine 10 mg Tablet PO (09:30)
[2023-03-29] MEDS: hyDRALAzine 50 mg Tablet PO (09:30)
[2023-03-29] MEDS: pantoprazole DR 40 mg Tablet PO ×2 (09:30→17:00)
--- NOTE | 2023-03-29 10:27 | P.PN_ITS ---
Subjective 2 Subjective: no new c/o Medications: Reviewed: Yes Vitals/I&O/Wt Last Vital Signs Temp 97.4 F L 03/29/23 08:19 Pulse 115 H 03/29/23 09:14 Resp 18 03/29/23 09:04 BP 117/79 03/29/23 08:19 Pulse Ox 96 03/29/23 09:04 O2 Del Method Nasal Cannula 03/29/23 09:04 O2 Flow Rate 4 03/29/23 09:04 03/28/23 03/29/23 03/29/23 22:59 06:59 14:59 Intake Total 50 / 150 Output Total 200 / 200 150 / 350 Balance -150 / -50 -150 / -200 Weight last 48 hrs Weight 91.824 kg Weight 92.215 kg Physical Exam 2 Narrative: Awake, no acute distress Urinary Catheter Management: Galdamez: Cath Placed During This Visit: yes Reason for Continuing Indwelling Catheter: Other Urinary Catheter Date of Insertion: 03/26/23 Urinary Catheter Time of Insertion: 12:00 Data 03/27/23 04:52 03/27/23 04:52 A&P Assessment and plan (1) Hypertensive crisis: Plan 1. Hypertensive emergency:With blood pressures of 180 systolic and diastolics more than 1 teens, status post Cardene drip. Restarted home blood pressure meds including-hydralazine labetelol, aldactone,lisinopril 40 a day, Switched amlodipine to nifedipine - decreased dose to 60 mg and decreased hydralazinre to 50 mg --> meds on hold now sec to hypotension and permissive hypertension in setting of acute stroke - , dcd chlorthalidone due to risk of hyponatremia -No renal artery stenosis on doppler US. 2. Hyponatremia: improved 3. Pancytopenia : s/p Neupogen 4. Acute on chronic resp failure 5. Acute CVA will sign off pt evaluated via audiovisual cart. Time spent 20 min Attestations 2 Medical Necessity Statement*: per medicine Coding Level of Care Code Acute Code for Chg Fwd Diagnoses Hypertensive crisis I16.9
--- NOTE | 2023-03-29 12:25 | P.PN_ITS ---
Subjective 2 Subjective: Patient is staying in sinus tachycardia persistently heart rate in 130s Start IV fluids I will encourage patient to work with PT She is answering in simple yes and no format Vitals/I&O/Wt Last Vital Signs Temp 97.4 F L 03/29/23 12:00 Pulse 126 H 03/29/23 12:00 Resp 19 H 03/29/23 12:00 BP 121/83 03/29/23 12:00 Pulse Ox 94 03/29/23 12:00 O2 Del Method Nasal Cannula 03/29/23 12:00 O2 Flow Rate 4 03/29/23 09:04 03/28/23 03/29/23 03/29/23 22:59 06:59 14:59 Intake Total 50 / 150 Output Total 200 / 200 150 / 350 Balance -150 / -50 -150 / -200 Weight last 48 hrs Weight 91.824 kg Weight 92.215 kg Physical Exam 2 Narrative: Sinus tachycardia Signs of mild dehydration Urine is concentrated Able to answer in simple format of yes and no Full code Dysarthria S1, S2 tachycardia abdomen distended however soft Currently on 5 L Urinary Catheter Management: Galdamez: Cath Placed During This Visit: yes Reason for Continuing Indwelling Catheter: Other Urinary Catheter Date of Insertion: 03/26/23 Urinary Catheter Time of Insertion: 12:00 Data 03/27/23 04:52 03/27/23 04:52 A&P Assessment and plan (1) Major depressive disorder, recurrent, moderate: (2) Acute CVA (cerebrovascular accident): (3) Dysarthria: (4) Hemiplegia affecting right dominant side: (5) Lung mass: (6) Hypercoagulable state: (7) Carotid artery, internal, occlusion: Qualifiers: Laterality: left Qualified Code(s): I65.22 - Occlusion and stenosis of left carotid artery (8) Hypertensive crisis: (9) Hypertensive urgency: Plan For sinus tachycardia and concentrated urine I will start patient on gentle fluid hydration She is only eating 5 to 10% of her meals Will put her on low-dose metoprolol as well Currently on 5 L Dysarthria To work with PT Needing placement Discontinue Tamiflu and doxycycline Attestations 2 Medical Necessity Statement*: Awaiting placement Diagnoses Major depressive disorder, recurrent, moderate F33.1 Acute CVA (cerebrovascular accident) I63.9 Dysarthria R47.1 Hemiplegia affecting right dominant side G81.91 Lung mass R91.8 Hypercoagulable state D68.59 Occlusion of left internal carotid artery I65.22 Laterality: left Hypertensive crisis I16.9 Hypertensive urgency I16.0
[2023-03-29] MEDS: sodium chloride 0.9% 1,000 ML 75 ML IV (13:50)
[2023-03-29] MEDS: labetalol 200 mg Tablet 100 MG PO (17:00)
[2023-03-29] MEDS: atorvastatin 40 mg Tablet PO (22:39)
[2023-03-30] VITALS (12 sets, daily range): BP systolic 106–124; BP diastolic 78–89; PULSE 95–112; RESP 16–20; TEMP 36.5–36.8; O2SAT 94–99; BMI 36.8
[2023-03-30] MEDS: sodium chloride 0.9% 1,000 ML 75 ML IV (01:33)
[2023-03-30] MEDS: ipratropium-albuterol 3 mL Neb INHALATION ×3 (02:27→14:15)
[2023-03-30] MEDS: budesonide 0.5 mg/2 mL Neb INHALATION (07:40)
[2023-03-30] MEDS: citalopram 20 mg Tablet 40 MG PO (08:04)
[2023-03-30] MEDS: labetalol 200 mg Tablet 100 MG PO (08:04)
[2023-03-30] MEDS: aspirin 81 mg EC Tablet PO (08:04)
[2023-03-30] MEDS: pantoprazole DR 40 mg Tablet PO (08:04)
[2023-03-30] MEDS: clopidogrel 75 mg Tablet PO (08:04)
[2023-03-30] MEDS: ARIPiprazole 10 mg Tablet 15 MG PO (08:04)
[2023-03-30] MEDS: nystatin 100,000 unit/mL UDC 5 mL 500000 UNIT PO ×2 (08:04→13:05)
[2023-03-30] MEDS: folic acid 1 mg Tablet PO (08:04)
[2023-03-30] MEDS: loratadine 10 mg Tablet PO (08:05)
[2023-03-30] MEDS: sennosides-docusate Tablet 1 TAB PO (08:05)
--- NOTE | 2023-03-30 09:31 | P.PN_ITS ---
Subjective 2 Subjective: Patient is communicating more as compared to yesterday Heart rate improved with IV fluid hydration Vitals/I&O/Wt Last Vital Signs Temp 97.7 F 03/30/23 08:22 Pulse 96 03/30/23 08:22 Resp 20 H 03/30/23 08:22 BP 124/89 03/30/23 08:22 Pulse Ox 96 03/30/23 08:22 O2 Del Method Nasal Cannula 03/30/23 08:22 O2 Flow Rate 4 03/30/23 07:40 03/29/23 03/30/23 03/30/23 22:59 06:59 14:59 Intake Total 240 / 600 878.75 / 1478.75 Output Total 600 / 600 450 / 1050 Balance -360 / 0 428.75 / 428.75 Weight last 48 hrs Weight 94.432 kg Weight 91.824 kg Physical Exam 2 Narrative: Speech is slightly better as compared to yesterday however still experiencing dysarthria She still has difficulty finding words and expressing her feelings Moving her left arm and left leg Currently on IV fluids Currently on 3 L of oxygen without any audible stridor or wheezing or crackles Abdomen soft Urinary Catheter Management: Galdamez: Cath Placed During This Visit: yes Reason for Continuing Indwelling Catheter: Required Immobilization for Trauma or Surgery or Anesthesia Urinary Catheter Date of Insertion: 03/26/23 Urinary Catheter Time of Insertion: 12:00 Data 03/27/23 04:52 03/27/23 04:52 A&P Assessment and plan (1) Essential hypertension: (2) Carotid artery, internal, occlusion: Qualifiers: Laterality: left Qualified Code(s): I65.22 - Occlusion and stenosis of left carotid artery (3) Hypercoagulable state: (4) Headache: (5) Acute lacunar infarction: (6) Acute left arterial ischemic stroke, ICA (internal carotid artery): (7) Hemiplegia affecting right dominant side: (8) Dysarthria: (9) Pancytopenia: (10) Stage III adenocarcinoma of lung: (11) Lung cancer: Plan She is not experiencing diarrhea She was constipated that got better with laxatives and stool softeners Ox requirement is improving despite use of IV fluids Currently on 3 L Dysarthria present but improving Sinus tachycardia improving as well with IV fluid hydration Awaiting placement Work with PT Pancytopenia improved Will request CBC for tomorrow along BMP Full code DVT prophylaxis on board Patient is normotensive, Attestations 2 Medical Necessity Statement*: Awaiting placement Diagnoses Essential hypertension I10 Occlusion of left internal carotid artery I65.22 Laterality: left Hypercoagulable state D68.59 Headache R51.9 Acute lacunar infarction I63.81 Acute left arterial ischemic stroke, ICA (internal carotid artery) I63.232 Hemiplegia affecting right dominant side G81.91 Dysarthria R47.1 Pancytopenia D61.818 Stage III adenocarcinoma of lung C34.90 Lung cancer C34.90
--- NOTE | 2023-03-30 10:15 | PM.DCS ---
Discharge Providers Date of Admission: 03/17/23 15:13 Date of Discharge: March 30, 2023 Attending Provider at Admission: Lv Villarreal MD Attending Provider at Discharge: Ella Thompson MD Primary Care Provider: Jean Iniguez DO Diagnoses at Discharge Discharge Diagnosis (1) Essential hypertension: Status: Acute (2) Carotid artery, internal, occlusion: Status: Acute Qualifiers: Laterality: left Qualified Code(s): I65.22 - Occlusion and stenosis of left carotid artery (3) Hypercoagulable state: Status: Acute (4) Headache: Status: Acute (5) Acute lacunar infarction: Status: Acute (6) Acute left arterial ischemic stroke, ICA (internal carotid artery): Status: Acute (7) Hemiplegia affecting right dominant side: Status: Acute (8) Dysarthria: Status: Acute (9) Pancytopenia: Status: Acute (10) Stage III adenocarcinoma of lung: Status: Chronic (11) Lung cancer: Status: Acute Reason for Visit Reason for Visit: Neutropenia/ Fever/ Hypoxia Hospital Course Hospital Course 47-year female with history of non-small cell lung cancer was directed from oncology clinic to the ER for neutropenia and fever, patient is currently undergoing chemotherapy, patient was recently diagnosed with influenza A, she was not able to take Tamiflu at home got worse, during hospitalization patient was given 2 doses of Neupogen for her worsening neutropenia, her thrombocytopenia and neutropenia improved significantly within the next 7 to 10 days, patient was kept on empirical antibiotic coverage, C. difficile ruled out, her hospitalization was complicated after code stroke was called for her dense right-sided hemiplegia, she was diagnosed with acute CVA, over the weekend on-call neurology team did not recommend TNKase because of her thrombocytopenia around 40,000 at that time, patient was already on dual antiplatelet therapy, patient is currently suffering from right-sided dense hemiplegia, she has expressive aphasia, her symptoms were worsening I requested Dr. Hdz to evaluate her as well, repeat CT head is consistent with evolving stroke related changes/neuro trauma. Her platelet count has improved, we have resumed her dual antiplatelet therapy, she definitely has hypercoagulable state related to her underlying cancer she remains sinus tachycardic I did not see atrial flutter or A-fib rhythm at all, her sinus tachycardia improved after I initiated IV fluids. Please note nephro was consulted for her hypertensive crisis when she was in the ICU renal artery stenosis was ruled out, after 3 days of antihypertensive regimen her blood pressure dropped we had to give her IV fluid bolus, I have aggressively adjusted her antihypertensive regimen to a moderate dose at this time. Patient is on dysphagia diet, echo unremarkable, she is on level 4 dysphagia diet Throughout her hospitalization she required 4 to 5 L of oxygen, she mostly remains tachypneic with breathing rate fluctuating between 20-25, Unfortunately she seems to have guarded prognosis at this point Physical Exam Narrative: Right-sided dense hemiplegia Patient answers in simple yes and no format Expressive aphasia Able to move her left arm and lower extremity Abdomen soft Patient remains tachypneic in the 20s Requiring 4 to 5 L Urinary Catheter Management: Galdamez: Cath Placed During This Visit: yes Reason for Continuing Indwelling Catheter: Required Immobilization for Trauma or Surgery or Anesthesia Urinary Catheter Date of Insertion: 03/26/23 Urinary Catheter Time of Insertion: 12:00 Discharge Data Studies Completed and Pending Completed Studies During Hospitalization Category Date Time Status CT head wo con* [id number] Routine Cat Scan 03/20/23 05:[address] head wo con* [id number] Routine Cat Scan 03/24/23 01:[address] head wo con* [id number] Stat Cat Scan 03/26/23 10:33 Completed CTA head neck [CT angio headneck* [id number]] Routine Cat Scan 03/20/23 05:51 Completed XR KUB portable [id number] Routine Exams 03/23/23 08:04 Completed XR chest 1V portable [id number] Routine Exams 03/17/23 15:40 Completed XR chest 1V portable [id number] Routine Exams 03/26/23 10:19 Completed Blood Cultures ([facility]) Routine Lab 03/17/23 16:00 Completed Blood Cultures ([facility]) Routine Lab 03/17/23 16:11 Completed CV renal doppler [id number] Routine Ultrasound 03/23/23 12:02 Completed CV. echo lmt wo/w bubble [id number] Routine Ultrasound 03/24/23 06:51 Completed Pending at discharge Category Date Time Status Basic Metabolic Panel AM LABS Lab 03/31/23 04:00 Ordered Clostridium Difficile PCR Routine Lab 03/29/23 15:25 Received Complete Blood Count w/Auto AM LABS Lab 03/31/23 04:00 Ordered Radiology Impressions Head/Neck CTA 03/20/23 05:51 IMPRESSION: Small unchanged aneurysms. IMPRESSION: 1. Likely COVID 19 pneumonia. 2. Lung masses, largest in the left upper lobe. 3. Short occlusion of the left internal carotid artery unchanged from before. REFERENCES: NASCET CRITERIA. The degree of stenosis in the cervical segment of the internal carotid artery is based on NASCET criteria. Normal is no stenosis. Mild is less than 50% stenosis. Moderate is 50-69% stenosis. Severe is 70% to 99% stenosis. Total occlusion is no detectable patent lumen. Laboratory Results WBC 11.84 10^3/uL (3.29-11.43) H 03/27/23 04:52 RBC 3.80 10^6/uL (3.85-5.65) L 03/27/23 04:52 Hgb 11.50 g/dL (11.27-16.99) 03/27/23 04:52 Hct 35.3 % (36-47) L 03/27/23 04:52 MCV 92.9 fl (85-98) 03/27/23 04:52 MCH 30.3 pg (27-33) 03/27/23 04:52 MCHC 32.6 g/dL (30-55) 03/27/23 04:52 RDW 17.2 % (12.1-15.1) H 03/27/23 04:52 Plt Count 181 10^3/cmm (157-399) D 03/27/23 04:52 MPV 10.9 fL (7.4-10.4) H 03/27/23 04:52 Neut % (Auto) 71.6 % 03/27/23 04:52 Lymph % (Auto) 17.2 % 03/27/23 04:52 [place] % (Auto) 7.6 % 03/27/23 04:52 Eos % (Auto) 1.4 % 03/27/23 04:52 Baso % (Auto) 0.3 % 03/27/23 04:52 Neut # (Auto) 8.49 10^3/uL (1.8-7.7) H 03/27/23 04:52 Lymph # (Auto) 2.0 10^3/uL (0.8-4.8) 03/27/23 04:52 [place] # (Auto) 0.9 10^3/uL (0.2-0.9) 03/27/23 04:52 Eos # (Auto) 0.2 10^3/uL (0.0-0.8) 03/27/23 04:52 Baso # (Auto) 0.0 10^3/uL (0.0-0.1) 03/27/23 04:52 Nucleated RBC % (auto) 0 % 03/27/23 04:52 Nucleated RBCs # 0.0 /100WBC 03/27/23 04:52 D-Dimer 0.88 ug/mLFEU (0-0.59) H 03/25/23 11:40 Specimen Type Arterial 03/26/23 10:27 Sample Site Radial, left 03/26/23 10:27 ABG pH 7.44 (7.35-7.45) 03/26/23 10:27 ABG pCO2 36.0 mmHg (35-45) 03/26/23 10:27 ABG pO2 52.6 mmHg (80.0-100.0) L 03/26/23 10:27 ABG PO2/FiO2 Ratio 0 03/26/23 10:27 ABG HCO3 24.2 mmol/L (22-26) 03/26/23 10:27 ABG Base Excess 0.2 mmol/L (-2.0-2.0) 03/26/23 10:27 Jamal Test Pos 03/26/23 10:27 Hematocrit 33.6 % (37-47) L 03/26/23 10:27 O2 Delivery Device Nc 03/26/23 10:27 O2 Liters/Min 4.0 % 03/26/23 10:27 FiO2 36.0 % 03/26/23 10:27 Busgirl ID Cak 03/26/23 10:27 Sodium 144 mmol/L (136-145) 03/27/23 04:52 Potassium 4.1 mmol/L (3.5-5.1) 03/27/23 04:52 Chloride 106 mmol/L (98-107) 03/27/23 04:52 Carbon Dioxide 25 mmol/L (22-29) 03/27/23 04:52 Anion Gap 17.1 (5-19) 03/27/23 04:52 BUN 36 mg/dL (6-20) H 03/27/23 04:52 Creatinine 0.9 mg/dL (0.5-0.9) 03/27/23 04:52 GFR Calculation 67.1 mL/min (90-130) L 03/27/23 04:52 Glucose 115 mg/dL (65-115) 03/27/23 04:52 POC Glucose 137 mg/dL (70-110) H 03/21/23 16:41 Calculated Osmolality 307 mOsm/kg (285-295) H 03/27/23 04:52 Calcium 9.6 mg/dL (8.5-10.5) 03/27/23 04:52 Magnesium 2.0 mg/dL (1.7-2.3) 03/18/23 05:17 Total Bilirubin 0.5 mg/dL (0.15-1.2) 03/20/23 04:54 AST 34 U/L (0-32) H 03/20/23 04:54 ALT 60 U/L (0-33) H 03/20/23 04:54 Alkaline Phosphatase 90 U/L (35-105) 03/20/23 04:54 Total Protein 6.3 g/dL (6.6-8.7) L 03/20/23 04:54 Albumin 3.1 g/dL (3.5-5.2) L 03/20/23 04:54 Globulin 3.2 g/dL (1.3-4.6) 03/20/23 04:54 Random Cortisol 39.20 ug/dL (2.47-19.5) H 03/17/23 09:49 Urine Color Yellow (Yellow) 03/18/23 08:45 Urine Appearance Clear (CLEAR) 03/18/23 08:45 Urine pH 6 (5-7) 03/18/23 08:45 Ur Specific [place] 1.015 (1.005-1.030) 03/18/23 08:45 Urine Protein Trace (Negative) 03/18/23 08:45 Urine Glucose (UA) Norm (Normal) 03/18/23 08:45 Urine Ketones Negative (Negative) 03/18/23 08:45 Urine Blood Neg (Negative) 03/18/23 08:45 Urine Nitrate Negative (Negative) 03/18/23 08:45 Urine Bilirubin Neg (Negative) 03/18/23 08:45 Urine Urobilinogen Norm mg/dL (Negative) 03/18/23 08:45 Ur Leukocyte Esterase Negative (Negative) 03/18/23 08:45 Urine RBC None /hpf (0-2) 03/18/23 08:45 Urine WBC 0-4 /hpf (0-5) H 03/18/23 08:45 Ur Squamous Epith Cells 0-4 /hpf (0-5) H 03/18/23 08:45 Amorphous Sediment Not Reportable 03/18/23 08:45 Urine Bacteria R /hpf (NONE) 03/18/23 08:45 Other Casts Wbc cast 0-4 /lpf 03/18/23 08:45 Urine Mucus Trace /hpf 03/18/23 08:45 Urine Yeast 2+ /hpf H 03/18/23 08:45 Vancomycin Trough 14.0 ug/mL (10-15) 03/21/23 16:35 Urine Opiates Screen Negative ng/mL (Negative) 03/26/23 12:12 Ur Barbiturates Screen Negative ng/mL (Negative) 03/26/23 12:12 Ur Phencyclidine Scrn Negative ng/mL (Negative) 03/26/23 12:12 Ur Amphetamines Screen Negative ng/mL (Negative) 03/26/23 12:12 U Benzodiazepines Scrn Positive ng/mL (Negative) H 03/26/23 12:12 Urine Cocaine Screen Negative ng/mL (Negative) 03/26/23 12:12 U Marijuana (THC) Screen Negative ng/mL (Negative) 03/26/23 12:12 Adenovirus (PCR) Not detected (NOT DETECT) 03/20/23 13:30 C. pneumoniae DNA (PCR) Not detected (NOT DETECT) 03/20/23 13:30 Coronavirus 229E (PCR) Not detected (NOT DETECT) 03/20/23 13:30 Human Metapneumovir PCR Not detected (NOT DETECT) 03/20/23 13:30 Influenza A (H1) PCR Not detected (NOT DETECT) 03/20/23 13:30 Influ A (H1/09) PCR Not detected (NOT DETECT) 03/20/23 13:30 Influenza A (H3) PCR Not detected (NOT DETECT) 03/20/23 13:30 Influenza Type A (PCR) Not detected (NOT DETECT) 03/20/23 13:30 Influenza Type B (PCR) Not detected (NOT DETECT) 03/20/23 13:30 M. pneumoniae (PCR) Not detected (NOT DETECT) 03/20/23 13:30 Parainfluenza 1 (PCR) Not detected (NOT DETECT) 03/20/23 13:30 Parainfluenza 2 (PCR) Not detected (NOT DETECT) 03/20/23 13:30 Parainfluenza 3 (PCR) Not detected (NOT DETECT) 03/20/23 13:30 Parainfluenza 4 (PCR) Not detected (NOT DETECT) 03/20/23 13:30 RSV Type A (PCR) Not detected (NOT DETECT) 03/20/23 13:30 RSV Type B (PCR) Not detected (NOT DETECT) 03/20/23 13:30 Entero/Rhino (PCR) Not detected (NOT DETECT) 03/20/23 13:30 SARS-CoV-2 (PCR) Not detected (NOT DETECT) 03/20/23 13:30 Vitals Last Vital Signs Temp 97.7 F 03/30/23 08:22 Pulse 96 03/30/23 08:22 Resp 20 H 03/30/23 08:22 BP 124/89 03/30/23 08:22 Pulse Ox 96 03/30/23 08:22 O2 Del Method Nasal Cannula 03/30/23 08:22 O2 Flow Rate 4 03/30/23 07:40 Discharge Plan Discharge Patient Disposition: Xfer Other Condition: Stable Prescriptions: New fluticasone propion-salmeterol [Advair HFA] 45-21 mcg/actuation HFA aerosol inhaler 2 inh inhalation BID Qty: 12 3RF methylprednisolone [Medrol (Dorian)] 4 mg tablets,dose pack See Rx Instructions .ROUTE .COMPLEX Qty: 21 0RF Rx Instructions: orally per package directions Spiriva Respimat 1.25 mcg/actuation mist 2 inh inhalation DAILY Qty: 4 4RF Continued cyclobenzaprine 10 mg tablet 10 mg PO BEDTIME PRN (Reason: muscle spasm) Qty: 30 2RF aripiprazole 15 mg tablet 15 mg PO DAILY Qty: 30 2RF citalopram 40 mg tablet 40 mg PO DAILY Qty: 90 1RF clopidogrel [Plavix] 75 mg tablet 75 mg PO DAILY 30 Days Qty: 30 11RF nicotine 21-14-7 mg/24 hr patch, TD daily, sequential See Rx Instructions transdermal .COMPLEX Qty: 56 0RF Rx Instructions: apply 1-21 mg NICOTINE PATCH daily for 28 days; follow with 1-14 mg PATCH daily for 14 days, then 1-7mg PATCH daily for 14 days transdermal nicotine (polacrilex) 4 mg lozenge 4 mg buccal Q6H PRN (Reason: nicotine cravings) Qty: 108 2RF omega-3 fatty acids 1,000 mg capsule 1,000 mg PO DAILY hydralazine 10 mg tablet 10 mg PO BID tramadol 50 mg tablet 50 mg PO BID PRN (Reason: pain) Qty: 60 0RF Opdivo 120 mg/12 mL solution 360 mg IV .[id number] 360 Days Qty: 3 12RF carboplatin 10 mg/mL solution 425 mg IV Q21D Qty: 45 12RF pemetrexed 500 mg recon soln 980 mg IV Q21D Qty: 1 12RF lidocaine-prilocaine 2.5-2.5 % cream 1 g topical DIRECTED PRN (Reason: Port-a-Cath) Qty: 30 3RF Rx Instructions: Apply 1 gram to port-a-cath site, 1 hour prior to accessing port. olanzapine [Zyprexa] 10 mg tablet 5 - 10 mg PO DAILY Qty: 30 0RF Rx Instructions: Take for 3 days following chemotherapy aspirin 81 mg Tablet,Delayed Release (Dr/Ec) 81 mg PO DAILY 30 Days Qty: 30 2RF ondansetron HCl 4 mg Tablet 4 mg PO QID PRN (Reason: Nausea/vomiting) Qty: 30 3RF folic acid 1 mg tablet 1 mg PO DAILY Qty: 30 5RF Rx Instructions: Folic acid supplementation should start 7 days prior to treatment and continuing for 21 days after the last pemetrexed dose. meloxicam 7.5 mg tablet 7.5 mg PO DAILY PRN (Reason: inflamation) trazodone 100 mg tablet 200 mg PO BEDTIME PRN (Reason: insomnia) buspirone 10 mg tablet 5 - 10 mg PO BID PRN (Reason: Anxiety) albuterol sulfate 90 mcg/actuation HFA aerosol inhaler 2 puff inhalation Q6H PRN (Reason: Shortness Of Breath Or Wheezing) Rx Instructions: INHALE TWO PUFFS EVERY 6 HOURS NEEDED FOR SHORTNESS OF BREATH or wheezing labetalol 100 mg tablet 100 mg PO BID Qty: 60 0RF Discontinued budesonide-formoterol [Symbicort] 160-4.5 mcg/actuation HFA aerosol inhaler 2 puff inhalation BID Qty: 10.2 3RF prochlorperazine maleate [Compazine] 10 mg tablet 10 mg PO Q4H PRN (Reason: Mild Nausea) Qty: 30 3RF hydroxyzine HCl 50 mg tablet 50 - 100 mg PO BEDTIME PRN (Reason: Anxiety) Rx Instructions: take 1- TWO tablets BY MOUTH AT BEDTIME as needed for anxiety spironolactone 25 mg tablet 25 mg PO DAILY lisinopril 20 mg tablet 40 mg PO DAILY Qty: 90 1RF oseltamivir [Tamiflu] 75 mg capsule 75 mg PO BID 5 Days Qty: 10 0RF methylprednisolone [Medrol (Dorian)] 4 mg tablets,dose pack See Rx Instructions .ROUTE .COMPLEX Qty: 21 0RF Rx Instructions: orally per package directions Discharge Orders: Discharge Order (Routine); Ordered 03/30/23 Ordered By: Ella Thompson Other Ambulatory Orders: DME: Nebulizer with Neb Kit (Order) Location: None Selected Ordered By: Lv Villarreal DME: Oxygen (Order) Location: None Selected Ordered By: Lv Villarreal Discharge Diet: As Directed Activity Restrictions/Additional Instructions: Pur?ed diet, extremely thick liquid Discharge Attestations Time Spent in Discharge Care*: greater than 30 min Quality Metrics Clinical Quality Measures [ No reported AMI, CVA or VTE this stay] Coding Level of Care Code Acute Code for Chg Fwd Diagnoses Essential hypertension I10 Occlusion of left internal carotid artery I65.22 Laterality: left Hypercoagulable state D68.59 Headache R51.9 Acute lacunar infarction I63.81 Acute left arterial ischemic stroke, ICA (internal carotid artery) I63.232 Hemiplegia affecting right dominant side G81.91 Dysarthria R47.1 Pancytopenia D61.818 Stage III adenocarcinoma of lung C34.90 Lung cancer C34.90
[2023-03-31 13:59] LABS: Clostridium Difficile PCR NOT DETECTED (NOT DETECTED)
== END 2023-03-30 15:10 | DRG 808 ==
LOC: MEDSURG 03-20 08:30 → ICU 03-20 11:16 → MEDSURG 03-23 17:19
PROVIDERS: Admitting Provider Internal Medicine; PCP Family Medicine; Visit Provider Internal Medicine
DX: D70.9 Neutropenia, unspecified (principal); I63.232 Cerebral infarction due to unspecified occlusion or stenosis of left carotid arteries; J96.21 Acute and chronic respiratory failure with hypoxia; C34.90 Malignant neoplasm of unspecified part of unspecified bronchus or lung; J44.1 Chronic obstructive pulmonary disease with (acute) exacerbation; F33.1 Major depressive disorder, recurrent, moderate; E87.1 Hypo-osmolality and hyponatremia; G81.91 Hemiplegia, unspecified affecting right dominant side; I16.1 Hypertensive emergency; R47.01 Aphasia; R50.81 Fever presenting with conditions classified elsewhere; Z86.73 Personal history of transient ischemic attack (TIA), and cerebral infarction without residual deficits; I10 Essential (primary) hypertension; F43.12 Post-traumatic stress disorder, chronic; F41.1 Generalized anxiety disorder; Z87.891 Personal history of nicotine dependence; R19.7 Diarrhea, unspecified; E86.0 Dehydration; R29.705 NIHSS score 5; R29.810 Facial weakness; R47.1 Dysarthria and anarthria; R47.81 Slurred speech; D61.818 Other pancytopenia; F12.11 Cannabis abuse, in remission; K59.00 Constipation, unspecified; F51.02 Adjustment insomnia; G89.29 Other chronic pain; M54.9 Dorsalgia, unspecified; D68.59 Other primary thrombophilia; I95.9 Hypotension, unspecified; R00.0 Tachycardia, unspecified
CPT/HCPCS: 36415; 36416; 36591; 36600; 51702; 70450; 70496; 70498; 71045; 74018; 80048; 80053; 80202; 80306; 81001; 82533; 82803; 82962; 83735; 85025; 85378; 87040; 87486; 87493; 87581; 87633; 92507; 92523; 92526; 92610; 93005; 93975; 94640; 94760; 94762; 96360; 96372; 96375; 96376; 97110; 97116; 97161; 97166; 97530; 97535; C8924; C9113; J0360; J0692; J1650; J1940; J2405; J2930; J3370; J3490; J7030; J7120; J7512; J7626; Q3014; Q5101; Q9967

== ENCOUNTER 2023-04-06 10:00 | Oncology outpatient (recurring) (ONCR) | payer BC, SELFPAY ==
[2023-03-09 09:50] VITALS: BP 137/94; PULSE 91; RESP 17; TEMP 36.7; O2SAT 97
[2023-03-09 10:04] VITALS: BMI 37.5
[2023-03-09 10:08] LABS: Basophils % 0.2 %; Eosinophils % 0.2 %; Hematocrit 38.9 % (36-47); Lymphocytes # 1.9 10^3/uL (0.8-4.8); Lymphocytes % 11.5 %; Mean Corpuscular HGB Conc 33.4 g/dL (30-55); Mean Corpuscular Volume 92.6 fl (85-98); Mean Platelet Volume 7.9 fL (7.4-10.4); Monocytes # 0.6 10^3/uL (0.2-0.9); Monocytes % 3.4 %; Neutrophils # 13.86 10^3/uL (1.8-7.7); Neutrophils % 83.9 %; Nucleated Red Blood Cells % 0 %; Platelet Count 354 10^3/cmm (157-399); Red Cell Distribution Width 16.5 % (12.1-15.1); White Blood Count 16.53 10^3/uL (3.29-11.43)
[2023-03-09 10:34] LABS: Alanine Aminotransferase 13 U/L (0-33); Albumin Level 4.3 g/dL (3.5-5.2); Alkaline Phosphatase 107 U/L (35-105); Anion Gap 16.6 (5-19); Aspartate Amino Transferase 7 U/L (0-32); Blood Urea Nitrogen 13 mg/dL (6-20); Calcium 9.4 mg/dL (8.5-10.5); Carbon Dioxide 22 mmol/L (22-29); Chloride 101 mmol/L (98-107); Globulin 3.4 g/dL (1.3-4.6); Glomerular Filtration Rate 67.1 mL/min (90-130); Glucose 155 mg/dL (65-115); Osmolality Calculated 283 mOsm/kg (285-295); Potassium 4.6 mmol/L (3.5-5.1); Sodium 135 mmol/L (136-145); Thyroid Stimulating Hormone 0.46 uIU/mL (0.27-4.20); Total Bilirubin 0.2 mg/dL (0.15-1.2); Total Protein 7.7 g/dL (6.6-8.7)
[2023-03-09] MEDS: sodium chloride 0.9% 250 ML 75 ML IV (12:17)
[2023-03-09] MEDS: acetaminophen 325 mg Tablet 650 MG PO (12:17)
[2023-03-09] MEDS: OLANZapine 5 mg TABLET PO (12:18)
[2023-03-09] MEDS: famotidine 20 mg/2 mL INJ IVP (12:25)
[2023-03-09] MEDS: fosaprepitant 150 MG in sodium chloride 0.9% 150 ML 300 MG IV (12:25)
[2023-03-09] MEDS: diphenhydrAMINE 50 mg/mL SDV 1mL 25 MG IVP (12:25)
[2023-03-09] MEDS: palonosetron 0.25 mg/5 mL SDV IVP (12:26)
[2023-03-09] MEDS: nivolumab 240 MG, nivolumab 120 MG in sodium chloride 0.9% 250 ML 572 MG IV (13:24)
[2023-03-09] MEDS: cyanocobalamin 1,000 mcg/mL SDV 1000 MCG IM (14:14)
[2023-03-09] MEDS: CARBOplatin 710 MG in sodium chloride 0.9% 500 ML 571 MG IV (14:14)
[2023-03-09] MEDS: PEMETREXED DISODIUM IV (15:28)
[2023-03-09] MEDS: SODIUM CHLORIDE 0.9% IV (15:28)
[2023-03-09] MEDS: acetaminophen 500 mg Tablet PO (15:40)
[2023-03-09 16:34] VITALS: BP 166/94; PULSE 99; RESP 16; TEMP 36.9; O2SAT 98
[2023-03-09 22:50] LABS: Cortisol Random 1.32 ug/dL (2.47-19.5)
[2023-03-17] MEDS: sodium chloride 0.9% 1,000 ML 999 ML IV (09:50)
[2023-03-17] MEDS: methylPREDNISolone sod succ 125 MG in water for injection-sterile 2 ML 24 MG IVP (09:54)
[2023-03-17] MEDS: ondansetron 2 mg/ML SDV 2 mL 8 MG IVP (09:59)
[2023-03-17] MEDS: ipratropium-albuterol 3 mL Neb INHALATION (10:03)
[2023-03-17 10:14] LABS: Eosinophils % 2.8 %; Lymphocytes # 0.6 10^3/uL (0.8-4.8); Mean Corpuscular HGB Conc 33.5 g/dL (30-55); Mean Corpuscular Hemoglobin 30.4 pg (27-33); Mean Corpuscular Volume 90.7 fl (85-98); Mean Platelet Volume 9.1 fL (7.4-10.4); Monocytes # 0.1 10^3/uL (0.2-0.9); Monocytes % 4.6 %; Neutrophils % 25.7 %; Nucleated Red Blood Cells % 0 %; Platelet Count 134 10^3/cmm (157-399); Red Blood Count 4.08 10^6/uL (3.85-5.65); Red Cell Distribution Width 16.9 % (12.1-15.1); White Blood Count 1.09 10^3/uL (3.29-11.43)
[2023-03-17 10:30] LABS: Alanine Aminotransferase 50 U/L (0-33); Albumin Level 3.4 g/dL (3.5-5.2); Alkaline Phosphatase 110 U/L (35-105); Anion Gap 14.5 (5-19); Aspartate Amino Transferase 28 U/L (0-32); Blood Urea Nitrogen 26 mg/dL (6-20); Calcium 8.4 mg/dL (8.5-10.5); Carbon Dioxide 22 mmol/L (22-29); Chloride 101 mmol/L (98-107); Globulin 3.2 g/dL (1.3-4.6); Glomerular Filtration Rate 53.2 mL/min (90-130); Glucose 99 mg/dL (65-115); Osmolality Calculated 281 mOsm/kg (285-295); Potassium 4.5 mmol/L (3.5-5.1); Sodium 133 mmol/L (136-145); Total Bilirubin 0.8 mg/dL (0.15-1.2); Total Protein 6.6 g/dL (6.6-8.7)
[2023-03-17 10:50] LABS: Neutrophils # 0.28 10^3/uL (1.8-7.7)
[2023-03-17 10:54] LABS: Slide Review Slide Review Perform
[2023-03-17 11:05] VITALS: BP 113/80; PULSE 107; TEMP 36.3; O2SAT 85
[2023-03-17 11:19] VITALS: PULSE 101; O2SAT 94
== END 2023-04-07 23:59 | disposition home or self-care (01) ==
PROVIDERS: Nurse Practitioner Family; PCP Family Medicine; Visit Provider Internal Medicine Medical Oncology
DX: Z53.9 Procedure and treatment not carried out, unspecified reason (principal)
CPT/HCPCS: 80053; 82533; 84443; 85025; 96360; 96367; 96372; 96375; 96413; 96417; J1100; J1200; J1453; J1642; J2405; J2469; J2930; J3420; J3490; J7030; J7040; J7050; J9045; J9299; J9305

== ENCOUNTER 2023-05-19 13:26 | Outpatient (CLI) | payer BC, SELFPAY ==
--- NOTE | 2023-05-19 14:30 | CTR_ITS ---
PROCEDURE INFORMATION: Exam: CT Chest With Contrast; Diagnostic Exam date and time: 05/19/2023 3:02 PM Age: 47 years old Clinical indication: Condition or disease; Other: Adenocarinoma lung; Lung condition and disease; Cancer of the lung; Bilateral; Unspecified; Prior surgery; Surgery date: 6+ months; Surgery type: Port pancreas TECHNIQUE: Imaging protocol: Diagnostic computed tomography of the chest with contrast. Radiation optimization: All CT scans at this facility use at least one of these dose optimization techniques: automated exposure control; mA and/or kV adjustment per patient size (includes targeted exams where dose is matched to clinical indication); or iterative reconstruction. Contrast material: OMNI 350; Contrast volume: 100 ml; Contrast route: INTRAVENOUS (IV); COMPARISON: CT chest ION (PULM ONLY) [id number] 11/20/2022 6:57 AM RADIATION DOSE METRICS: Total DLP (mGy-cm): 1065.33 FINDINGS: Tubes, catheters and devices: There is a right jugular central venous catheter with its tip projecting in the region the superior right atrium. Thyroid: The included portions of the thyroid gland are unremarkable. Lungs: Compared with the 2 prior studies from 09/29/2022 and 11/20/2022, there has been interval increase in size of the spiculated mass in the posterior aspect of the left upper lobe. On the most recent study, it measured 2 .6 x 2.1 cm in transverse and AP diameter. On the current study it now measures 4.3 x 3.2 cm on series 4, image 18 in transverse and AP dimensions and it measures 4.0 cm in superior to inferior dimension on series 8, image 24. It now abuts the anterior aspect of the superior aspect of the left major fissure. It also now abuts the left lateral superior mediastinum. It is contiguous with the superior aspect the left main pulmonary artery. There is increased tumor extension into the left hilum. . The tumor encases the left upper lobe pulmonary artery branch vessel which is narrowed and may be now occluded.There is a separate strandy extension from the superior posterior aspect of the mass to the more superior aspect of the left major fissure. There are strandy extensions into the more superior left upper lobe. Within the right lung, there are new reticulonodular opacities. These are located in all lobes the right lung. The appearance suggests a possible inflammatory process however the possibility that this could represent lymphangitic spread of neoplasm can not be excluded. There are similar less prominent opacities in the inferior aspect of the left upper lobe. There is a nodular consolidation in the inferolateral right lower lobe measuring 1.1 cm on series 4, image 39 and extending inferiorly from this. This may be inflammatory however metastatic lesion here can not be excluded. There are similar opacities in the posterior sulci bilaterally Pleural spaces: Negative for pleural effusion Heart: Unremarkable. No cardiomegaly. No pericardial effusion. Mediastinal space: See below Lymph nodes: There has been interval worsening the mediastinal adenopathy. Coronary Clinical Specialist lymph node adjacent to the aortic arch measures 2.2 x 1.5 cm. Previously, it measured 1.9 x 0.7 cm. There is no right hilar adenopathy. Evaluation of the left hilum is limited as the tumor extends directly into it. There is no axillary adenopathy. Vasculature: See above Bones/joints: There are degenerative changes in the spine. Soft tissues: Unremarkable. Other findings: Impression CT chest: IMPRESSION: Impression CT chest 1. Interval increase in size left upper lobe spiculated mass consistent with patient's known neoplasm. See above description 2. New reticulonodular densities in more consolidated opacities in the right lung and to a lesser extent in the inferior left upper lobe. The appearance of the suggests an inflammatory process though lymphangitic spread of carcinoma can not be excluded and metastatic disease can not be excluded 3. Interval worsening of mediastinal adenopathy 4. See separate report below concerning findings CT abdomen pelvis PROCEDURE INFORMATION: Exam: CT Abdomen And Pelvis With Contrast Exam date and time: 05/19/2023 3:02 PM Age: 47 years old Clinical indication: Condition or disease; Other: Adenocarinoma lung; Lung condition and disease; Cancer of the lung; Bilateral; Unspecified; Prior surgery; Surgery date: 6+ months; Surgery type: Port pancreas TECHNIQUE: Imaging protocol: Computed tomography of the abdomen and pelvis with contrast. Radiation optimization: All CT scans at this facility use at least one of these dose optimization techniques: automated exposure control; mA and/or kV adjustment per patient size (includes targeted exams where dose is matched to clinical indication); or iterative reconstruction. Contrast material: OMNI 350; Contrast volume: 100 ml; Contrast route: INTRAVENOUS (IV); COMPARISON: CT chest ION (PULM ONLY) [id number] 11/20/2022 6:57 AM RADIATION DOSE METRICS: Total DLP (mGy-cm): 1065.33 FINDINGS: CT abdomen and pelvis Liver: There is a low-density lesion in the dome of the liver which is partially calcified posteriorly on the right unchanged compared with the prior. It measures 1.3 x 1.0 cm on series 3, image 43. This may be a calcified hemangioma. Calcified metastatic lesion can not be excluded. Low-density adjacent to the falciform ligament is favored to be focal fatty infiltration.. The liver is otherwise unremarkable. Gallbladder and bile ducts: Patient is status post cholecystectomy. There is no biliary ductal dilatation. Pancreas: The pancreas is unremarkable. Spleen: Normal. No splenomegaly. Adrenal glands: No focal abnormality detected in the spleen there are 2 nodules involving the right adrenal gland. One was present previously and had low CT density numbers on previous unenhanced CT, and is most consistent with a adenoma. This 1 is located more posteriorly and measures 1.4 x 1.3 cm. The other is located more anteriorly and is new compared with the prior study. It measures 2.0 x 1.7 cm. It can not be fully characterized on this study with contrast on board. However it is unlikely that this is an adenoma since it is new compared with November 2022. This is highly worrisome for metastatic lesion. The left adrenal gland is unremarkable. Kidneys and ureters: Small low-density lesion in the posterior left kidney is likely a cyst but too small to accurately characterize. There is no hydronephrosis. There is no renal or ureteral calculus. Stomach and bowel: The bowel-gas pattern is not obstructed. There is probable wall thickening involving portions of the colon suggesting mild colitis versus underdistention. Appendix: The appendix is normal. Intraperitoneal space: Unremarkable. No free air. No significant fluid collection. Vasculature: Unremarkable. No abdominal aortic aneurysm. Lymph nodes: Unremarkable. No enlarged lymph nodes. Urinary bladder: The bladder has circumferential wall thickening. Reproductive: The uterus and adnexa are unremarkable. Bones/joints: Sclerotic bony lesions in the bony pelvis are likely bone islands though sclerotic metastatic deposits can not completely be excluded. Soft tissues: There is a small umbilical hernia containing only fat. There is a small umbilical hernia containing only. CT/CT chest abdpel w/*[id number] IMPRESSION: Impression CT abdomen and pelvis 1. Stable nodule superior aspect liver with calcified rim. This is favored to most likely be benign however calcified metastatic lesion can not completely be excluded. Focal fatty infiltration adjacent to the falciform ligament. Liver otherwise unremarkable 2. Pre-existing adrenal lesion in the posterior right adrenal gland favored to be an adenoma due to low CT density number seen on prior unenhanced CT. New right adrenal nodule highly worrisome for metastatic disease here, see above 3. Findings suggest possible mild diffuse colitis 4. Small umbilical hernia containing only 5. Wall thickening bladder. 6. See separate report above concerning findings CT chest COMMENTS: Consistent with the [employer]'s Incidental Findings Committee white paper (J Am [place] Radiol 2018): Any incidental renal lesion less than 1 cm or classified as too small to characterize, or any incidental cystic renal lesion characterized as simple-appearing, is likely benign. No follow-up imaging is recommended for these lesions per consensus recommendations based on imaging criteria.
[2023-05-19] MEDS: iohexol 350 mg/mL 500 mL Btl (per mL) IV (15:10)
[2023-05-19] MEDS: iohexol 350 mg/mL 500 mL Btl (per mL) PO (15:11)
== END 2023-05-19 13:27 | disposition home or self-care (01) ==
LOC: RAD 13:26
PROVIDERS: PCP Family Medicine; Visit Provider Internal Medicine
DX: C34.12 Malignant neoplasm of upper lobe, left bronchus or lung (principal); R91.8 Other nonspecific abnormal finding of lung field; R59.0 Localized enlarged lymph nodes
CPT/HCPCS: 71260; 74177; Q9967

== ENCOUNTER 2023-06-03 10:50 | Oncology outpatient (recurring) (ONCR) | payer BC, SELFPAY ==
[2023-05-13 12:26] LABS: Basophils % 0.3 %; Eosinophils # 0.2 10^3/uL (0.0-0.8); Eosinophils % 3.2 %; Hematocrit 33.1 % (36-47); Lymphocytes # 2.2 10^3/uL (0.8-4.8); Lymphocytes % 29.5 %; Mean Corpuscular Hemoglobin 29.9 pg (27-33); Mean Corpuscular Volume 93.2 fl (85-98); Mean Platelet Volume 8.1 fL (7.4-10.4); Monocytes # 0.5 10^3/uL (0.2-0.9); Monocytes % 6.9 %; Neutrophils # 4.43 10^3/uL (1.8-7.7); Neutrophils % 59.8 %; Nucleated Red Blood Cells % 0 %; Platelet Count 330 10^3/cmm (157-399); Red Blood Count 3.55 10^6/uL (3.85-5.65); Red Cell Distribution Width 15.9 % (12.1-15.1)
[2023-05-13 13:02] LABS: Alanine Aminotransferase 15 U/L (0-33); Albumin Level 3.4 g/dL (3.5-5.2); Alkaline Phosphatase 120 U/L (35-105); Anion Gap 15.5 (5-19); Aspartate Amino Transferase 15 U/L (0-32); Blood Urea Nitrogen 5 mg/dL (6-20); Calcium 8.5 mg/dL (8.5-10.5); Carbon Dioxide 24 mmol/L (22-29); Chloride 104 mmol/L (98-107); Globulin 3.5 g/dL (1.3-4.6); Glomerular Filtration Rate 107.2 mL/min (90-130); Glucose 75 mg/dL (65-115); Osmolality Calculated 286 mOsm/kg (285-295); Potassium 3.5 mmol/L (3.5-5.1); Sodium 140 mmol/L (136-145); Thyroid Stimulating Hormone 1.53 uIU/mL (0.27-4.20); Total Bilirubin 0.2 mg/dL (0.15-1.2); Total Protein 6.9 g/dL (6.6-8.7)
[2023-05-13 15:04] LABS: Reticulocyte % 2.7 % (0.5-2.0)
[2023-05-13 15:41] LABS: Ferritin 117 ng/mL (15-150); Iron 34 ug/dL (37-145); Lactate Dehydrogenase 327 U/L (135-214); Percent Saturation 21.7 % (20-50); Total Iron Binding Capacity 156 mcg/dl; Unsaturated Iron Binding 122 ug/dL (112-347)
[2023-05-13 15:56] LABS: Vitamin B12 874 pg/mL (232-1245)
[2023-05-13 17:45] LABS: Folate Level > 20.0 ng/mL (4.8-37.3)
[2023-05-16 11:09] LABS: Methylmalonic Acid 144 nmol/L (87-318)
[2023-05-19 02:22] LABS: B2 Glycoprotein I IGM AB 2.9 U/mL; CARDIOLIPIN AB (IGA) <2.0 APL-U/mL; CARDIOLIPIN AB (IGG) <2.0 GPL-U/mL; CARDIOLIPIN AB (IGM) <2.0 MPL-U/mL
[2023-05-19 02:29] LABS: Beta 2 Glycoprotein IGG <2.0 U/mL
[2023-05-19 03:04] LABS: Factor 5 Leiden Mutation NEGATIVE
[2023-05-19 22:04] LABS: PROTHROMBIN (FACTOR II) 20210G NEGATIVE
--- NOTE | 2023-06-03 11:40 | N.ONRAD NP_ITS ---
Radiation Oncology New Patient Visit Patient: Leann Monte MR#: [id number] : 1975> Age: 47> Sex: Female> Dictated by: Dr. Cecilia Lopez Date of Service: 06/03/2023 Referring Physician(s) : Dr. 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 Chief Complaint / History of Present Illness: Patient is a 47-year-old lady who actually presented in September 2022 after she had a stroke. She was found at that time to have a mass in the left upper lobe which was 1.7 x 2.2 cm in size. Subsequent SUV showed uptake of 12.8. She was also noted to have mediastinal adenopathy. In November she underwent bronchoscopy and was found to have adenocarcinoma grade 3 and large cell carcinoma in the lymph node. She was started on carbo premetrexed and nirolumaib. She received her first cycle on March 09. On March 20 she had a massive CVA. She has had subsequent scans which have shown the mass in her lung has now increased to 4.3 x 3.2 cm in size. The mediastinal adenopathy was larger as well. There was no evidence of metastatic disease. She is seen today in consultation to discuss combined modality therapy. Current Medications: albuterol sulfate 90 mcg/actuation 2 puffs inhalation Q6H PRN albuterol sulfate 2.5 mg (3 mL) inhalation Q6H amlodipine 10 mg PO DAILY aripiprazole 15 mg PO DAILY aspirin 81 mg PO DAILY 30 days buspirone take 1/2 to 1 tablet BY MOUTH TWICE DAILY NEEDED FOR ANXIETY cetirizine 10 mg PO DAILY PRN citalopram 40 mg PO DAILY clopidogrel (Plavix) 75 mg PO DAILY 30 days cyclobenzaprine 10 mg PO BEDTIME PRN fluticasone propion-salmeterol 45-21 mcg/actuation (Advair HFA) 2 inhalations inhalation BID folic acid 1 mg PO DAILY hydralazine 50 mg PO TID hydroxyzine HCl 25 mg PO QID PRN labetalol 100 mg PO BID lidocaine-prilocaine 2.5-2.5 % 1 g topical DIRECTED PRN ondansetron HCl 4 mg PO QID PRN prednisolone 5 mg PO DAILY [Right Ankle Foot Orthosis Please eval and issue AFO for Right foot due to foot drop from CVA. ] tramadol 100 mg PO BID PRN trazodone 50 mg PO DAILY umeclidinium 62.5 mcg/actuation 1 inh inhalation DAILY Allergies: Penicillins Allergy (Severe, Verified 05/27/23 12:31) Anaphylaxis morphine Allergy (Intermediate, Verified 05/27/23 12:31) ADR-Vomiting naproxen Allergy (Intermediate, Verified 05/27/23 12:31) ADR-Vomiting lorazepam [From Ativan] Adverse Reaction (Severe, Verified 05/27/23 12:31) Becomes aggressive. EGGS Adverse Reaction (Severe, Uncoded 05/27/23 12:31) N & V, Stomach pain, Throat swells shut flu shot Adverse Reaction (Severe, Uncoded 05/27/23 12:31) N & V, Stomach pain, Throat swells shut nuts Adverse Reaction (Severe, Uncoded 05/27/23 12:31) Vomiting & throat swells Medical History: Non-small cell lung cancer COPD (chronic obstructive pulmonary disease) Hypertensive crisis Acute CVA (cerebrovascular accident) Decreased cortisol level Occlusion of left internal carotid artery Exertional chest pain Blurry vision, bilateral Insomnia Hyponatremia Major depressive disorder, recurrent, moderate Cannabis use disorder, mild, in early remission, abuse Menopause syndrome Vertigo Essential hypertension Oral abscess Psychiatric care Asthma 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 Ko History of removal of ovarian cyst Hx of lithotripsy Hx of hernia repair Hx of cholecystectomy Family History: Other CAD (coronary artery disease) Cancer Hypertension Psychiatric illness Stroke Denies family history of Diabetes Chronic kidney disease (CKD) Social History: Smoking and tobacco/nicotine status: former use of tobacco/nicotine Quit status (tobacco/nicotine): has quit using Year quit tobacco: 2022 Former quit date comment: still use nicotine patches Second hand smoke exposure: Yes Alcohol intake: never Caregiver/support person: Yes Lives independently: Yes Household members: significant other Housing: House Current occupational status: employed Female Reproductive History Para: 0 Spontaneous abortions: Yes (all 6 pregnancies) Dietary Habits Caffeine: Yes Current Complaints / Review of Systems: . Vital Signs: Performed on 06/03/2023 11:12 AM BMI - 35.181 kg/m2 (high), Height - 63 in, Weight - 198.6 lbs, Temperature - 96.6 f, Pulse - 87 /min, Respiration - 18 /min, O2 Sat - 98 %, Pain - 0, Fatigue - 0 and BP - 104/ 67 mm(hg). Physical Exam: General patient is sitting comfortably in her chair. Her is holding her right arm. HEENT: Normocephalic atraumatic. Pupils are equal, sclera clear, extraocular muscles intact Pulmonary: Respiratory rate is regular nonlabored. Lungs were noted to have basilar rhonchi. Good air flow was appreciated. Cardiovascular: Regular rate and rhythm Abdomen: Soft and nontender without hepatomegaly Extremities: No gross edema was noted in the upper extremities Skin: Warm and dry without lesions or ulcerations Neurological: She has had significant neurological deficits from her stroke. It is affected her whole right side of her body. It has also affected her ability to communicate. Sometimes she has difficulty using the right word. Performance Status: 60 Pathology: Imaging: See HPI Impression: Stage III adenocarcinoma of the lung Plan: I reviewed with Mrs. Monte and her the current findings on her scans. We talked about the simulation process. We reviewed the daily treatment regiment. We discussed the risks and side effects of the radiation both acute and long-term. All of his questions were answered. She at this point is agreed to proceed with the radiation. She will be visited with Dr. Dejesus today to discuss the chemotherapy. Will schedule her for simulation first part of next week. Plan for a 6-week course of treatment to the right upper lobe and the mediastinum. Signed by: 06/03/2023 11:38:53 AM <<Signature on File>> Time spent with patient:45 CPT Code: CPT Code:
== END 2023-06-06 23:59 | disposition home or self-care (01) ==
PROVIDERS: Internal Medicine; PCP Family Medicine; Visit Provider Radiology Radiation Oncology
DX: Z51.0 Encounter for antineoplastic radiation therapy (principal); C34.12 Malignant neoplasm of upper lobe, left bronchus or lung; Z87.891 Personal history of nicotine dependence
CPT/HCPCS: 36591; 77334; 77470; 80053; 81241; 82607; 82728; 82746; 83010; 83540; 83550; 83615; 83921; 84443; 85025; 85045; 85210; 85613; 85730; 86146; 86147; 88184; 88185; 99205; J1642

== ENCOUNTER 2023-06-04 15:13 | Outpatient (CLI) | payer BC, SELFPAY ==
--- NOTE | 2023-06-04 15:15 | MR_ITS ---
WS: [id number] MRI BRAIN WITH AND WITHOUT CONTRAST HISTORY: adenocarcinoma lung, as per history patient's had a recent stroke, right-sided weakness. COMPARISON: 12/04/2022 TECHNIQUE: Multiplanar imaging performed through the brain with MultiHance 20 ml's IV. Residual diffusion abnormality in the LEFT dowling radiata and centrum semiovale from the prior infarc t. This area does not enhance. This is new since 12/04/2022 and corresponds to the infarct described o n 03/26/2023. Mild atrophy and small vessel ischemic disease. Ventricles and extra-axial spaces are normal. Clivus and pituitary gland are normal. Visualized posterior fossa and brainstem are also normal. No areas of enhancement to suggest metastatic disease. The recent infarct does not enhance either. Dural venous sinuses are normal. Paranasal sinuses: Well aerated with no significant disease. Mastoid air cells: Normal. Calvarium and scalp: Normal. IMPRESSION: 1. No evidence for metastatic disease to the brain. 2. Subacute evolving large infarct involving the LEFT centrum semiovale and dowling radiata. This are a does not enhance. 3. Mild small vessel ischemic type changes are unchanged.
[2023-06-04] MEDS: gadobenate dimeglumine 20 mL vial IV (15:40)
== END 2023-06-04 15:14 | disposition home or self-care (01) ==
LOC: RAD 15:14
PROVIDERS: PCP Family Medicine; Visit Provider Internal Medicine
DX: C34.12 Malignant neoplasm of upper lobe, left bronchus or lung (principal)
CPT/HCPCS: 70553; A9577

== ENCOUNTER → 2023-06-15 16:03 | Outpatient (BNVA) | payer SELFPAY | PROVIDERS: PCP Family Medicine; Visit Provider Family Medicine | DX: C34.12 Malignant neoplasm of upper lobe, left bronchus or lung (principal); Z95.828 Presence of other vascular implants and grafts | CPT/HCPCS: 71045 ==

== ENCOUNTER 2023-07-07 10:26 | Oncology outpatient (recurring) (ONCR) | payer OTHER, SELFPAY | END 2023-07-07 23:59 | disposition home or self-care (01) | PROVIDERS: PCP Family Medicine; Visit Provider Radiology Radiation Oncology | DX: Z51.0 Encounter for antineoplastic radiation therapy (principal); C34.12 Malignant neoplasm of upper lobe, left bronchus or lung; Z72.0 Tobacco use | CPT/HCPCS: 77300; 77301; 77334; 77338; 77470 ==

== ENCOUNTER 2023-07-21 13:23 | Emergency (ER) | payer OTHER, SELFPAY ==
[2023-07-21 13:25] VITALS: BP 174/109; PULSE 129; PULSE 143; RESP 35; O2SAT 100
--- NOTE | 2023-07-21 13:30 | W.ED.ALLEREA ---
HPI - Allergic Reaction General: Chief complaint: Allergic Reaction Stated complaint: Allergic reaction Time Seen by Provider: 07/21/23 13:27 History of Present Illness: HPI narrative: 47-year-old female who was transferred from the outpatient infusion unit after receiving her first dose of Taxol and having a severe allergic reaction. She received Solu-Medrol, Decadron, Pepcid and epinephrine prior to arrival here. She was still requiring quite a bit of oxygen tachycardic and very dyspneic on presentation to the emergency room. She received a racemic and on arrival here. She has never had an allergic reaction like this before. She is being treated for a primary adenocarcinoma of the lung. Review of Systems Narrative: Constitutional symptoms: Negative except as documented in HPI. Skin symptoms: Negative except as documented in HPI. Eye symptoms: Negative except as documented in HPI. ENMT symptoms: Negative except as documented in HPI. Respiratory symptoms: Negative except as documented in HPI. Cardiovascular symptoms: Negative except as documented in HPI. Gastrointestinal symptoms: Negative except as documented in HPI. Genitourinary symptoms: Negative except as documented in HPI. Musculoskeletal symptoms: Negative except as documented in HPI. Neurologic symptoms: Negative except as documented in HPI. Psychiatric symptoms: Negative except as documented in HPI. Endocrine symptoms: Negative except as documented in HPI. 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 Ko Family History Other CAD (coronary artery disease) Cancer Hypertension Psychiatric illness Stroke Denies family history of Diabetes Chronic kidney disease (CKD) Social History Smoking and tobacco/nicotine status: former use of tobacco/nicotine Quit status (tobacco/nicotine): has quit using Year quit tobacco: 2022 Former quit date comment: still use nicotine patches Second hand smoke exposure: Yes Alcohol intake: never Caregiver/support person: Yes Lives independently: Yes Household members: significant other Housing: House Current occupational status: employed Female Reproductive History: Para: 0 Spontaneous abortions: Yes (all 6 pregnancies) Physical Exam Narrative: EXAM NARRATIVE: General: Alert, moderate distress. Skin: Warm, dry. Head: Normocephalic, atraumatic. Neck: Supple, trachea midline. Eye: Extraocular movements are intact. Ears, nose, mouth and throat: Oral mucosa moist. Cardiovascular: Tachycardic, Normal peripheral perfusion. Respiratory: coarse, scattered wheeze, moderate increased wob. tachypnea, prolonged expiratory phase. breath sounds are equal, Symmetrical chest wall expansion. Gastrointestinal: Soft, Nontender, Non distended, Normal bowel sounds. Musculoskeletal: Normal ROM, no deformity. Neurological: Alert and oriented to person, place, time, and situation, No focal neurological deficit observed. Psychiatric: Cooperative, appropriate mood & affect. Course Vital Signs: Vital signs: Vital Signs Pulse Rate 107 H 07/21/23 14:21 Respiratory Rate 20 H 07/21/23 14:21 Blood Pressure 112/82 07/21/23 14:21 Pulse Oximetry 100 07/21/23 14:21 Oxygen Delivery Me thod Nasal Cannula 07/21/23 14:21 Oxygen Flow Rate 2 07/21/23 14:21 MDM - Allergic Reaction Medical Decision Making Medical decision making: Differential diagnosis including but not limited to and based on the above HPI, review of systems and physical exam: Patient is having a severe allergic reaction to first time dose of the medication. Anaphylaxis. She is receiving appropriate medications and we are watching her. I reviewed the patient's medical record. Reexamination: Patient has improved drastically. No increased work of breathing. No oxygen requirements. No altered mental status. Assessment and plan: Anaphylaxis Medication reaction -Patient received epinephrine, 2 doses of steroids, Pepcid, racemic epinephrine. She has improved. I will send her home on steroids for a few days. - Discharged home - Discussed plan with patient. Answered any questions. - Evaluation and treatment of this problem were appropriate in the emergency setting. No radiology studies performed this visit Discharge Plan Discharge Patient Disposition: Home Clinical Impression: Anaphylaxis, Adverse reaction to drug Condition: Stable Prescriptions: New prednisone 20 mg tablet 60 mg PO DAILY 5 Days Qty: 15 0RF famotidine 40 mg tablet 40 mg PO DAILY Qty: 7 0RF hydroxyzine HCl 25 mg tablet 25 mg PO BID 5 Days Qty: 10 0RF No Action potassium chloride 20 mEq tablet extended release 40 meq PO DAILY Qty: 60 1RF hydroxyzine HCl 25 mg tablet 25 mg PO QID PRN (Reason: UNKNOWN) prednisolone 5 mg tablet 5 mg PO DAILY trazodone 50 mg tablet 50 mg PO DAILY omeprazole magnesium [Prilosec OTC] 20 mg tablet,delayed release (DR/EC) 20 mg PO DAILY Qty: 90 3RF albuterol sulfate 90 mcg/actuation HFA aerosol inhaler 2 puff inhalation Q6H PRN (Reason: Shortness Of Breath Or Wheezing) Qty: 8.5 3RF ondansetron HCl 4 mg tablet 4 mg PO QID PRN (Reason: Nausea/vomiting) Qty: 60 3RF lidocaine-prilocaine 2.5-2.5 % cream 1 g topical DIRECTED PRN (Reason: Port-a-Cath) Qty: 30 3RF Rx Instructions: Apply 1 gram to port-a-cath site, 1 hour prior to accessing port. aspirin 81 mg tablet,delayed release (DR/EC) 81 mg PO DAILY 30 Days Qty: 30 2RF clopidogrel [Plavix] 75 mg tablet 75 mg PO DAILY 30 Days Qty: 30 11RF aripiprazole 15 mg tablet 15 mg PO DAILY Qty: 30 2RF amlodipine 10 mg tablet 10 mg PO DAILY Qty: 90 0RF labetalol 100 mg tablet 100 mg PO BID Qty: 180 1RF citalopram 40 mg tablet 40 mg PO DAILY Qty: 90 1RF Advair HFA 45-21 mcg/actuation HFA aerosol inhaler 2 inh inhalation BID Qty: 12 3RF cetirizine 10 mg tablet 10 mg PO DAILY PRN (Reason: allergy symptoms) Qty: 90 0RF folic acid 1 mg tablet 1 mg PO DAILY Qty: 30 5RF Rx Instructions: Should start 7 days prior to treatment and continuing for 21 days after the last pemetrexed dose. cyclobenzaprine 10 mg tablet 10 mg PO BEDTIME PRN (Reason: muscle spasm) Qty: 30 2RF hydrocodone-acetaminophen 7.5-325 mg tablet 1 tab PO Q6H PRN (Reason: pain) 30 Days Qty: 120 0RF (DME) Right Ankle Foot Orthosis See Rx Instructions .Route .MEDSUPPLY Qty: 1 0RF Rx Instructions: Please eval and issue AFO for Right foot due to foot drop from CVA. prochlorperazine maleate [Compazine] 10 mg tablet 10 mg PO Q4H PRN (Reason: Mild Nausea) Qty: 30 3RF tramadol 100 mg tablet 100 mg PO BID PRN (Reason: Pain) albuterol sulfate 2.5 mg /3 mL (0.083 %) solution for nebulization 2.5 mg inhalation Q6H PRN (Reason: Shortness Of Breath) buspirone 10 mg tablet 5 - 10 mg PO BID PRN (Reason: Anxiety) hydralazine 50 mg tablet 50 mg PO TID Discharge Orders: Discharge ED (Routine); Ordered 07/21/23 Ordered By: Josefina Gastelum Referrals: Jean Iniguez DO [Primary Care Provider] - 4-7 days Patient Instructions: Anaphylaxis (ED), Opioid Safety, Pain Management Activity Restrictions/Additional Instructions: Thank you for choosing [facility] for your healthcare needs today. Please realize this is an emergency room and that we are providing you with a medical screening exam and this may not be complete and all inclusive of all the testing and or work up that you may need to determine your ailment or severity of your illness. You have been screened and evaluated and felt safe for discharge. Health conditions do change or evolve sometimes and as such it is important that you follow up with your Primary Doctor to be re checked, 3-5 days is a general good time frame for follow up. You are always welcome to return to the ED for re assessment if your symptoms are worsening or you have new concerns Coding Level of Care Code ED Bin Piler for Scotty Lewis
--- NOTE | 2023-07-21 13:30 | PC.NURSE ---
Verbal order from Dr Gastelum to hold Epi for now
[2023-07-21] MEDS: racepinephrine 0.5 mL Neb INHALATION (13:33)
[2023-07-21 13:40] VITALS: BP 146/96; PULSE 125; PULSE 126; RESP 36; O2SAT 98
[2023-07-21 13:59] VITALS: BP 146/96; PULSE 106; RESP 22; O2SAT 99
[2023-07-21 14:21] VITALS: BP 112/82; PULSE 107; RESP 20; O2SAT 100
[2023-07-21 15:30] VITALS: BP 134/82; PULSE 96; RESP 16; O2SAT 98
[2023-07-21] MEDS: predniSONE 20 mg Tablet 60 MG PO (16:22)
[2023-07-21 16:28] VITALS: BP 138/78; PULSE 89; RESP 18; O2SAT 98
== END 2023-07-21 16:30 | disposition home or self-care (01) ==
PROVIDERS: Emergency Provider Emergency Medicine; PCP Family Medicine
DX: T88.6XXA Anaphylactic reaction due to adverse effect of correct drug or medicament properly administered, initial encounter (principal); T45.1X5A Adverse effect of antineoplastic and immunosuppressive drugs, initial encounter; Z79.02 Long term (current) use of antithrombotics/antiplatelets; Z79.82 Long term (current) use of aspirin; Z87.891 Personal history of nicotine dependence; Z86.73 Personal history of transient ischemic attack (TIA), and cerebral infarction without residual deficits; J44.9 Chronic obstructive pulmonary disease, unspecified; I10 Essential (primary) hypertension; Z85.118 Personal history of other malignant neoplasm of bronchus and lung
CPT/HCPCS: 94640; 96374; 99284; J1642; J7512

== ENCOUNTER 2023-08-04 08:30 | Oncology outpatient (recurring) (ONCR) | payer OTHER, SELFPAY ==
[2023-07-21 08:17] LABS: Basophils % 0.3 %; Eosinophils # 1.4 10^3/uL (0.0-0.8); Eosinophils % 14.8 %; Hematocrit 33.8 % (36-47); Lymphocytes # 1.9 10^3/uL (0.8-4.8); Lymphocytes % 20.4 %; Mean Corpuscular HGB Conc 31.4 g/dL (30-55); Mean Corpuscular Hemoglobin 25.9 pg (27-33); Mean Corpuscular Volume 82.6 fl (85-98); Mean Platelet Volume 8.4 fL (7.4-10.4); Monocytes # 0.5 10^3/uL (0.2-0.9); Monocytes % 5.6 %; Neutrophils # 5.38 10^3/uL (1.8-7.7); Neutrophils % 58.6 %; Nucleated Red Blood Cells % 0 %; Platelet Count 313 10^3/cmm (157-399); Red Blood Count 4.09 10^6/uL (3.85-5.65); Red Cell Distribution Width 15.8 % (12.1-15.1); White Blood Count 9.18 10^3/uL (3.29-11.43)
[2023-07-21 08:47] LABS: Alanine Aminotransferase 8 U/L (0-33); Albumin Level 3.6 g/dL (3.5-5.2); Alkaline Phosphatase 103 U/L (35-105); Anion Gap 12.9 (5-19); Aspartate Amino Transferase 11 U/L (0-32); Blood Urea Nitrogen 5 mg/dL (6-20); Calcium 8.4 mg/dL (8.5-10.5); Carbon Dioxide 28 mmol/L (22-29); Chloride 105 mmol/L (98-107); Globulin 3.6 g/dL (1.3-4.6); Glomerular Filtration Rate 89.7 mL/min (90-130); Glucose 120 mg/dL (65-115); Osmolality Calculated 294 mOsm/kg (285-295); Sodium 143 mmol/L (136-145); Total Bilirubin 0.2 mg/dL (0.15-1.2); Total Protein 7.2 g/dL (6.6-8.7)
[2023-07-21 08:51] LABS: Potassium 2.9 mmol/L (3.5-5.1)
[2023-07-21] MEDS: sodium chlor 0.9% + KCl 40 mEq 40 MEQ/1,000 ML BAG 500 MEQ IV (10:01)
[2023-07-21 10:22] LABS: Ferritin 145 ng/mL (15-150); Iron 31 ug/dL (37-145); Magnesium 1.8 mg/dL (1.7-2.3); Percent Saturation 20.6 % (20-50); Total Iron Binding Capacity 150 mcg/dl; Unsaturated Iron Binding 119 ug/dL (112-347)
[2023-07-21] MEDS: sodium chloride 0.9% 250 ML 75 ML IV (12:27)
[2023-07-21] MEDS: diphenhydrAMINE 50 mg/mL SDV 1mL 25 MG IVP ×2 (12:27→13:15)
[2023-07-21] MEDS: acetaminophen 325 mg Tablet 650 MG PO (12:27)
[2023-07-21] MEDS: famotidine 20 mg/2 mL INJ IVP (12:28)
[2023-07-21] MEDS: palonosetron 0.25 mg/5 mL SDV IVP (12:29)
[2023-07-21] MEDS: dexamethasone 20 MG in sodium chloride 0.9% 50 ML 188 MG IV (12:29)
[2023-07-21] MEDS: PACLitaxeL 100 MG in sodium chloride 0.9%(non-DEHP) 250 ML 266.670000000000016 MG IV (13:00)
[2023-07-21] MEDS: methylPREDNISolone sod succ 40 mg/mL INJ IVP (13:11)
[2023-07-21 13:52] VITALS: PULSE 110; O2SAT 77
--- NOTE | 2023-07-21 13:54 | PC.NURSE ---
Infusion of Paclitaxel started at 1300. Pt notified this nurse at 1304 that she was having difficulty breathing. Paclitaxel immediately stopped, saline increased. Rolando Barker NP was notified. Applied oxygen at 1305. Duoneb started at 1310. Solumedrol 125mg IVP given at 1311. Rapid response called at 1312. Epinephrine 1mg IM given at 1313. Benadryl 25mg IVP given at 1315. All medications given by verbal order from Rolando Barker NP. Unable to obtain a BP on pt. O2 of 77% with 10L. Pulse 110. Pt taken to ER at 1320 by rapid reponse team.
[2023-07-21] MEDS: EPINEPHrine 1 mg/mL INJ IM (14:29)
[2023-07-27 09:07] VITALS: BP 133/87; PULSE 82; RESP 17; TEMP 36.6; O2SAT 96
[2023-07-27] MEDS: diphenhydrAMINE 50 mg/mL SDV 1mL 25 MG IVP (09:13)
--- NOTE | 2023-07-27 10:04 | ONCRAD TMN_ITS ---
Radiation Oncology Weekly Treatment Management Patient: Leann Monte MR#: [id number] : 1975 Attending Physician: Dr. Cecilia Lopez Date of Service: 07/27/2023 Fractions: 4 out of 30 Referring Physician(s) : Diagnosis: C34.12 - Malignant neoplasm of upper lobe, left bronchus or lung, Diagnosed 06/03/2023 (Active) Radiotherapy to date: Course: JHONNY nodes, Treatment Site: JHONNY 60Gy, Ref. ID: [id number], Energy: 6X, Dose/Fx (cGy): 200, #Fx: , Dose Correction (cGy): 0, Total Dose Delivered (cGy): 800, Start Date: 07/21/2023, Elapsed Days: 6 Reason for visit: The patient is being seen today as part of their regularly scheduled weekly on treatment visits to assess for acute toxicities from radiotherapy. Review of Systems: Patient had an episode right when she was getting out of the car today in front of the building. She apparently began coughing and then began to have trouble breathing. When she was brought into the building she was wheezing and felt like her airway was blocking off. At the time of evaluation her color was good. Her fingertips were still pink. She was able to speak. She was no longer wheezing. She appeared to be having more of a panic attack than actual respiratory issues. This point we sent her to infusion and gave her 25 of Benadryl as well as put her 2 L of oxygen on. She rested for a while and recovered. Vital Signs: Performed on 07/27/2023 9:57 AM BMI - 33.338 kg/m2 (high), Height - 63 in, Weight - 188.2 lbs, Temperature - 97.7 f, Pulse - 82 /min, Respiration - 17 /min, O2 Sat - 96 %, Pain - 0, Fatigue - 2 and BP - 133/ 87 mm(hg). Physical Exam: No changes on exam Imaging: Radiation therapy imaging related to accurate target localization (i.e. KV, MV and CBCT) was reviewed. Appropriate changes, if any, were made to ensure treatment accuracy. Plan: Will continue with her treatments as planned. She reacted last week to her chemotherapy. They are waiting for approval in the next possible chemo to use. At this point I reassured her that her radiations are primary treatment right now and we would just continue on with her radiation. She does not have as much difficulty with the radiation and anxiety as she does with the chemotherapy suite and anxiety. She was in agreement with the above plan. Signed by: Dr. Cecilia Lopez 07/27/2023 10:03:55 AM
[2023-07-29 09:44] LABS: Basophils % 0.4 %; Eosinophils # 0.3 10^3/uL (0.0-0.8); Eosinophils % 4.1 %; Hematocrit 35.7 % (36-47); Lymphocytes # 1.8 10^3/uL (0.8-4.8); Lymphocytes % 22.3 %; Mean Corpuscular HGB Conc 30.5 g/dL (30-55); Mean Corpuscular Hemoglobin 25.6 pg (27-33); Mean Platelet Volume 8.4 fL (7.4-10.4); Monocytes # 0.7 10^3/uL (0.2-0.9); Monocytes % 8.2 %; Neutrophils # 5.23 10^3/uL (1.8-7.7); Neutrophils % 64.6 %; Nucleated Red Blood Cells % 0 %; Platelet Count 402 10^3/cmm (157-399); Red Blood Count 4.25 10^6/uL (3.85-5.65); Red Cell Distribution Width 16.5 % (12.1-15.1); White Blood Count 8.08 10^3/uL (3.29-11.43)
[2023-07-29 10:19] LABS: Alanine Aminotransferase 31 U/L (0-33); Albumin Level 3.7 g/dL (3.5-5.2); Alkaline Phosphatase 105 U/L (35-105); Anion Gap 11.9 (5-19); Aspartate Amino Transferase 15 U/L (0-32); Blood Urea Nitrogen 10 mg/dL (6-20); Calcium 8.2 mg/dL (8.5-10.5); Carbon Dioxide 29 mmol/L (22-29); Chloride 106 mmol/L (98-107); Creatinine Clr Calc Pharmacy 104.5198; Ferritin 105 ng/mL (15-150); Glomerular Filtration Rate 89.7 mL/min (90-130); Glucose 88 mg/dL (65-115); Iron 32 ug/dL (37-145); Osmolality Calculated 296 mOsm/kg (285-295); Percent Saturation 17.9 % (20-50); Sodium 144 mmol/L (136-145); Thyroid Stimulating Hormone 1.91 uIU/mL (0.27-4.20); Total Bilirubin 0.2 mg/dL (0.15-1.2); Total Iron Binding Capacity 178 mcg/dl; Total Protein 6.7 g/dL (6.6-8.7); Unsaturated Iron Binding 146 ug/dL (112-347)
[2023-07-29 10:40] LABS: Potassium 2.9 mmol/L (3.5-5.1)
--- NOTE | 2023-08-03 13:25 | ONCRAD TMN_ITS ---
Radiation Oncology Weekly Treatment Management Patient: Leann Monte#: [id number] : 1975 Attending Physician: Dr. Cecilia Lopez Date of Service: 08/03/2023 Fractions: 6 out of 30, patient has declined additional chemotherapy Referring Physician(s) : Diagnosis: C34.12 - Malignant neoplasm of upper lobe, left bronchus or lung, Diagnosed 06/03/2023 (Active) Radiotherapy to date: Course: JHONNY nodes, Treatment Site: JHONNY 60Gy, Ref. ID: [id number], Energy: 6X, Dose/Fx (cGy): 200, #Fx: , Dose Correction (cGy): 0, Total Dose Delivered (cGy): 1,200, Start Date: 07/21/2023, Elapsed Days: 13 Reason for visit: The patient is being seen today as part of their regularly scheduled weekly on treatment visits to assess for acute toxicities from radiotherapy. Review of Systems: Patient said that her lungs hurt. When I questioned her about this she said that the upper portion of her lungs in the center part of her chest hurts when she takes deep breaths and when she is not taking a deep breath. She feels like the infection she had previously has not completely cleared. Vital Signs: Performed on 08/03/2023 1:02 PM BMI - 34.578 kg/m2 (high), Height - 63 in, Weight - 195.2 lbs, Temperature - 97.6 f, Pulse - 90 /min, Respiration - 18 /min, O2 Sat - 95 % (low), Pain - 8, Fatigue - 6 and BP - 133/ 81 mm(hg). Physical Exam: On examination her respiratory rate is regular. Her pulse ox is 95%. Also Tatian of her lungs revealed inspiratory and expiratory wheezing bilaterally. Imaging: Radiation therapy imaging related to accurate target localization (i.e. KV, MV and CBCT) was reviewed. Appropriate changes, if any, were made to ensure treatment accuracy. Plan: Will continue with her treatments as planned. She has at this point decided she is going to talk to medical oncology and discontinue her chemotherapy. In the interim she is asked for an additional antibiotic which I will send electronically to her pharmacy. Signed by: Dr. Cecilia Lopez 08/03/2023 1:24:57 PM
[2023-08-04 09:21] LABS: Basophils % 0.4 %; Eosinophils # 0.7 10^3/uL (0.0-0.8); Eosinophils % 8.8 %; Hematocrit 32.5 % (36-47); Lymphocytes # 1.3 10^3/uL (0.8-4.8); Lymphocytes % 17.5 %; Mean Corpuscular HGB Conc 30.2 g/dL (30-55); Mean Corpuscular Hemoglobin 24.9 pg (27-33); Mean Corpuscular Volume 82.5 fl (85-98); Mean Platelet Volume 8.1 fL (7.4-10.4); Monocytes # 0.5 10^3/uL (0.2-0.9); Monocytes % 6.1 %; Neutrophils # 4.93 10^3/uL (1.8-7.7); Neutrophils % 66.9 %; Nucleated Red Blood Cells % 0 %; Platelet Count 333 10^3/cmm (157-399); Red Blood Count 3.94 10^6/uL (3.85-5.65); Red Cell Distribution Width 16.6 % (12.1-15.1); White Blood Count 7.37 10^3/uL (3.29-11.43)
[2023-08-04 09:46] LABS: Alanine Aminotransferase 12 U/L (0-33); Albumin Level 3.6 g/dL (3.5-5.2); Alkaline Phosphatase 109 U/L (35-105); Anion Gap 13.3 (5-19); Aspartate Amino Transferase 7 U/L (0-32); Blood Urea Nitrogen 5 mg/dL (6-20); Calcium 8.4 mg/dL (8.5-10.5); Carbon Dioxide 28 mmol/L (22-29); Chloride 107 mmol/L (98-107); Creatinine Clr Calc Pharmacy 121.9397; Globulin 3.2 g/dL (1.3-4.6); Glomerular Filtration Rate 107.2 mL/min (90-130); Glucose 107 mg/dL (65-115); Osmolality Calculated 298 mOsm/kg (285-295); Potassium 3.3 mmol/L (3.5-5.1); Sodium 145 mmol/L (136-145); Total Bilirubin 0.2 mg/dL (0.15-1.2); Total Protein 6.8 g/dL (6.6-8.7)
[2023-08-04 11:49] LABS: Iron 32 ug/dL (37-145); Percent Saturation 20.2 % (20-50); Total Iron Binding Capacity 158 mcg/dl; Unsaturated Iron Binding 126 ug/dL (112-347)
== END 2023-08-06 23:59 | disposition home or self-care (01) ==
PROVIDERS: Internal Medicine; Internal Medicine Medical Oncology; Nurse Practitioner Family; PCP Family Medicine; Visit Provider Radiology Radiation Oncology
DX: Z53.9 Procedure and treatment not carried out, unspecified reason (principal); Z51.0 Encounter for antineoplastic radiation therapy; C34.12 Malignant neoplasm of upper lobe, left bronchus or lung; D64.9 Anemia, unspecified
CPT/HCPCS: 36591; 77336; 77386; 80053; 82728; 83540; 83550; 83735; 84443; 85025; 96367; 96372; 96375; 96413; 99024; J0171; J1100; J1200; J2469; J2919; J3490; J7050; J9267

== ENCOUNTER 2023-08-16 08:54 | Emergency (ER) | payer OTHER, SELFPAY ==
[2023-08-16] VITALS (11 sets, daily range): BP systolic 124–170; BP diastolic 64–108; PULSE 83–98; RESP 16–18; TEMP 36.8; O2SAT 92–100
--- NOTE | 2023-08-16 09:03 | XRR_ITS ---
PROCEDURE INFORMATION: Exam: XR Chest Exam date and time: 08/16/2023 9:07 AM Age: 47 years old Clinical indication: Other: AMS; Prior surgery; Surgery date: 6+ months; Surgery type: Port; Patient HX: HX of lung cancer; Additional info: Lungs he had a acute stroke TECHNIQUE: Imaging protocol: Radiologic exam of the chest. Views: 1 view. COMPARISON: CR XR chest 1V [id number] 06/15/2023 4:12 PM FINDINGS: Tubes, catheters and devices: Central vascular catheter projects in the upper portion of the right atrium near the junction with the SVC. Lungs: A mass in the upper left lung extending to the left hilum appears similar to the previous. Elsewhere, the lungs appear clear as visualized. Pleural spaces: No pleural effusion evident. Heart/Mediastinum: The heart size is stable. There is increased fullness in the aortopulmonary window which could reflect adenopathy although could be an artifact of differences in projection. Bones/joints: No acute osseous abnormality identified. XR/XR chest 1V portable [id number] IMPRESSION: Persistent left upper lobe mass extending to the superior hilum. Slight increased fullness in the aortopulmonary window could be an artifact of differences in projection but could reflect enlarged adenopathy. No other apparent interval change.
--- NOTE | 2023-08-16 09:03 | CT_ITS ---
WS: [id number] CT HEAD TECHNIQUE: Noncontrast CT of the head obtained from the skullbase to the vertex. CLINICAL INFORMATION: SYMPTOMS OF ACUTE STROKE COMPARISON: MRI 06/04/2023 DLP: [id number] scans at [facility] use at least one of these dose optimization techniques: automated e xposure control; mA and/or kV adjustment per patient size (includes targeted exams where dose is matc hed to clinical indication); or iterative reconstruction. FINDINGS: 2 focal areas of acute intraparenchymal hemorrhage one involving the LEFT centrum semiovale measuring 1.3 x 1.1 cm and additional area involving the temporoparietal junction measuring 1.1 x 1.0 cm. Smal l amount of surrounding edema. No significant mass effect or midline shift. Small area of low attenuation RIGHT parietal lobe dorsally near the vertex may be new from the prior MRI suspicious for a small focus of subacute ischemia. This measures 1.1 cm. Evidence of numerous chronic infarcts in the LEFT hemisphere and dowling radiata similar to the prior MRI. Cavernous carotid calcification. Paranasal sinuses and mastoid air cells are well aerated. CT/CT head thrombolytic [id number] IMPRESSION: 1. 2 focal areas of intraparenchymal hemorrhage in the LEFT centrum semiovale and LEFT temporoparietal junction measuring approximately 1 to 1.3 cm described above. Differential considerations include hemorrhagic infarcts versus hemorrh agic metastasis considering history. 2. No significant mass effect or midline shift. 3. Chronic infarct with encephalomalacia involving the LEFT cerebral hemispher e, dowling radiata, and inferior anterior LEFT frontal lobe. 4. Additional small area of low-attenuation involving the RIGHT parietal lobe near the vertex dorsally probably new from the prior studies may present additi onal area of subacute ischemia. This could be further evaluated with MRI. Notified Mesfin Garcia DO at 08/16/2023 9:17 AM. Notified Mesfin Garcia DO at 08/16/2023 9:11 AM.
--- NOTE | 2023-08-16 09:03 | ECG_ITS ---
"[facility] Test Date: 2023-08-16 Pat Name: Leann Monte Department: Room: Gender: Female Special Education Director: : 1975 Requested By: Mesfin Basurto Order Number: [id number] Nelly MD: Mandy Hanson M.D. Measurements Intervals [place] Rate: 90 P: 56 AK: 125 QRS: 29 QRSD: 97 T: 68 QT: 376 QTc: 462 Interpretive Statements SINUS RHYTHM NONSPECIFIC T-WAVE ABNORMALITY Compared to ECG 03/28/2023 11:31:22 Sinus tachycardia no longer present Short AK interval no longer present Possible ischemia no longer present T-wave abnormality still present Electronically Signed On 08-16-2023 19:00:50 CDT by Mandy Hanson M.D. [id number]"
--- NOTE | 2023-08-16 09:04 | ED_ITS ---
HPI - Neuro Symptoms/Deficit 2 General: Chief Complaint: Neuro Symptoms/Deficit Stated Complaint: stroke like symptoms Time Seen by Provider: 08/16/23 09:02 Source: patient Mode of arrival: ambulatory History of Present Illness: 47-year-old female presents emergency ro om the direction of her oncologist. She was recently diagnosed few months ago with small cell lung CA she has some mild slurring of her speech facial droop droop and right-sided weakness. In March of this year she had a CVA that affected her right side of the seems to have worsened her previous deficits. Her symptoms were present when she woke up this morning. 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 Ko History of removal of ovarian cyst Hx of lithotripsy Hx of hernia repair Hx of cholecystectomy Family History Other CAD (coronary artery disease) Cancer Hypertension Psychiatric illness Stroke Denies family history of Diabetes Chronic kidney disease (CKD) Social History Smoking and tobacco/nicotine status: former use of tobacco/nicotine Quit status (tobacco/nicotine): has quit using Year quit tobacco: 2022 Former quit date comment: still use nicotine patches Second hand smoke exposure: Yes Alcohol intake: never Caregiver/support person: Yes Lives independently: Yes Household members: significant other Housing: House Current occupational status: employed Female Reproductive History: Para: 0 Spontaneous abortions: Yes (all 6 pregnancies) NIH stroke score 2 NIHSS: Level Of Consciousness - 1a: 0 Level Of Consciousness Questions - 1b: Both Correct Level Of Consciousness Commands - 1c: Both Correct Best Gaze - 2: Normal Visual Webb - 3: No Visual Loss Facial Palsy - 4: N ormal Motor Arm Right - 5: No Drift Motor Arm Left - 5: No Drift Motor Leg Right - 6: No Drift Motor Leg Left - 6: No Drift Limb Ataxia - 7: A bsent Sensory - 8: Normal Best Language - 9: No Aphasia Dysarthia - 10: Normal Extinction And Inattention - 11: 0 Score: Total Score: 0 Course 2 Vital Signs: Vital signs: Vital Signs Temperature 98.2 F 08/16/23 09:45 Pulse Rate 98 08/16/23 12:48 Respiratory Rate 18 08/16/23 12:48 Blood Pressure 144/98 08/16/23 12:48 Pulse Oximetry 95 08/16/23 12:48 Oxygen Delivery Me thod Room Air 08/16/23 12:17 MDM - Neuro Symptoms/Deficit Medical Decision Making Patient initially presented oncology office had some slurred speech some facial droop and weakness that was reported. On arrival here NIH is 0 CT was done she is to what appeared to be metastatic lesions with active bleeding and. She has not deteriorated all her blood pressure is mildly elevated started on some low- dose nicardipine after consultation with neurology to try to improve her blood pressure slightly. She has not had any vomiting or diarrhea will transfer to [place] to [facility] due to her acute bleed. Discussed this is patient and family. Were awaiting transportation at the time of this dictation the rest arrangements have been made. I also notified Dr. Dejesus. She has been given TXA as well as dexamethasone. Medical Records I reviewed the patient's medical records. Lab Data I reviewed the patient's lab results. 08/16/23 09:33 08/16/23 09:33 Radiology Impressions Chest X-Ray 08/16/23 09:03 IMPRESSION: Persistent left upper lobe mass extending to the superior hilum. Slight increased fullness in the aortopulmonary window could be an artifact of differences in projection but could reflect enlarged adenopathy. No other apparent interval change. Head CT 08/16/23 09:03 IMPRESSION: 1. 2 focal areas of intraparenchymal hemorrhage in the LEFT centrum semiovale and LEFT temporoparietal junction measuring approximately 1 to 1.3 cm described above. Differential considerations include hemorrhagic infarcts versus hemorrhagic metastasis considering history. 2. No significant mass effect or midline shift. 3. Chronic infarct with encephalomalacia involving the LEFT cerebral hemisphere, dowling radiata, and inferior anterior LEFT frontal lobe. 4. Additional small area of low-attenuation involving the RIGHT parietal lobe near the vertex dorsally probably new from the prior studies may present additional area of subacute ischemia. This could be further evaluated with MRI. Notified Mesfin Garcia DO at 08/16/2023 9:17 AM. Notified Mesfin Garcia DO at 08/16/2023 9:11 AM. Laboratory Results WBC 5.62 10^3/uL (3.29-11.43) 08/16/23 09:33 RBC 3.90 10^6/uL (3.85-5.65) 08/16/23 09:33 Hgb 10.10 g/dL (11.27-16.99) L 08/16/23 09:33 Hct 32.1 % (36-47) L 08/16/23 09:33 MCV 82.3 fl (85-98) L 08/16/23 09:33 MCH 25.9 pg (27-33) L 08/16/23 09:33 MCHC 31.5 g/dL (30-55) 08/16/23 09:33 RDW 17.3 % (12.1-15.1) H 08/16/23 09:33 Plt Count 336 10^3/cmm (157-399) 08/16/23 09:33 MPV 8.4 fL (7.4-10.4) 08/16/23 09:33 Neut % (Auto) 67.9 % 08/16/23 09:33 Lymph % (Auto) 18.9 % 08/16/23 09:33 Burke % (Auto) 5.3 % 08/16/23 09:33 Eos % (Auto) 7.3 % 08/16/23 09:33 Baso % (Auto) 0.2 % 08/16/23 09:33 Neut # (Auto) 3.82 10^3/uL (1.8-7.7) 08/16/23 09:33 Lymph # (Auto) 1.1 10^3/uL (0.8-4.8) 08/16/23 09:33 Burke # (Auto) 0.3 10^3/uL (0.2-0.9) 08/16/23 09:33 Eos # (Auto) 0.4 10^3/uL (0.0-0.8) 08/16/23 09:33 Baso # (Auto) 0.0 10^3/uL (0.0-0.1) 08/16/23 09:33 Nucleated RBC % (auto) 0 % 08/16/23 09:33 Nucleated RBCs # 0.0 /100WBC 08/16/23 09:33 PT 13.00 SECONDS (12.1-14.9) 08/16/23 09:33 INR 0.95 (0.8-1.2) 08/16/23 09:33 APTT 29.5 SECONDS (23.9-36.7) 08/16/23 09:33 Sodium 142 mmol/L (136-145) 08/16/23 09:33 Potassium 4.0 mmol/L (3.5-5.1) 08/16/23 09:33 Chloride 106 mmol/L (98-107) 08/16/23 09:33 Carbon Dioxide 25 mmol/L (22-29) 08/16/23 09:33 Anion Gap 15.0 (5-19) 08/16/23 09:33 BUN 8 mg/dL (6-20) 08/16/23 09:33 Creatinine 0.6 mg/dL (0.5-0.9) 08/16/23 09:33 GFR Calculation 107.2 mL/min (90-130) 08/16/23 09:33 Glucose 90 mg/dL (65-115) 08/16/23 09:33 POC Glucose 97 mg/dL (70-110) 08/16/23 09:48 Calculated Osmolality 292 mOsm/kg (285-295) 08/16/23 09:33 Calcium 9.2 mg/dL (8.5-10.5) 08/16/23 09:33 Total Bilirubin 0.4 mg/dL (0.15-1.2) 08/16/23 09:33 AST 22 U/L (0-32) 08/16/23 09:33 ALT 30 U/L (0-33) 08/16/23 09:33 Alkaline Phosphatase 137 U/L (35-105) H 08/16/23 09:33 Total Protein 7.2 g/dL (6.6-8.7) 08/16/23 09:33 Albumin 4.0 g/dL (3.5-5.2) 08/16/23 09:33 Globulin 3.2 g/dL (1.3-4.6) 08/16/23 09:33 Urine Color Yellow (Yellow) 08/16/23 10:01 Urine Appearance Clear (CLEAR) 08/16/23 10:01 Urine pH 7 (5-7) 08/16/23 10:01 Ur Specific [place] 1.005 (1.005-1.030) 08/16/23 10:01 Urine Protein Neg (Negative) 08/16/23 10:01 Urine Glucose (UA) Norm (Normal) 08/16/23 10:01 Urine Ketones Negative (Negative) 08/16/23 10:01 Urine Blood Neg (Negative) 08/16/23 10:01 Urine Nitrate Negative (Negative) 08/16/23 10:01 Urine Bilirubin Neg (Negative) 08/16/23 10:01 Urine Urobilinogen Norm mg/dL (Negative) 08/16/23 10:01 Ur Leukocyte Esterase Negative (Negative) 08/16/23 10:01 Urine Opiates Screen Positive ng/mL (Negative) H 08/16/23 10:01 Ur Barbiturates Screen Negative ng/mL (Negative) 08/16/23 10:01 Ur Phencyclidine Scrn Negative ng/mL (Negative) 08/16/23 10:01 Ur Amphetamines Screen Negative ng/mL (Negative) 08/16/23 10:01 U Benzodiazepines Scrn Positive ng/mL (Negative) H 08/16/23 10:01 Urine Cocaine Screen Negative ng/mL (Negative) 08/16/23 10:01 U Marijuana (THC) Screen Positive ng/mL (Negative) H 08/16/23 10:01 All radiology interpretation(s) finalized by discharge Discharge Plan Discharge Patient Disposition: Transfer to ED Clinical Impression: Lung cancer metastatic to brain, Acute intracranial hemorrhage Condition: Stable Prescriptions: No Action hydrocodone-acetaminophen 7.5-325 mg tablet 1 tab PO Q6H PRN (Reason: pain) 30 Days Qty: 120 0RF albuterol sulfate 2.5 mg /3 mL (0.083 %) solution for nebulization 2.5 mg inhalation Q6H PRN (Reason: Shortness Of Breath) Qty: 180 1RF hydroxyzine HCl 25 mg tablet 25 mg PO QID PRN (Reason: UNKNOWN) trazodone 50 mg tablet 50 mg PO BEDTIME PRN (Reason: Sleep) omeprazole magnesium [Prilosec OTC] 20 mg tablet,delayed release (DR/EC) 20 mg PO DAILY Qty: 90 3RF albuterol sulfate 90 mcg/actuation HFA aerosol inhaler 2 puff inhalation Q6H PRN (Reason: Shortness Of Breath Or Wheezing) Qty: 8.5 3RF ondansetron HCl 4 mg tablet 4 mg PO QID PRN (Reason: Nausea/vomiting) Qty: 60 3RF clopidogrel [Plavix] 75 mg tablet 75 mg PO DAILY 30 Days Qty: 30 11RF amlodipine 10 mg tablet 10 mg PO DAILY Qty: 90 0RF labetalol 100 mg tablet 100 mg PO BID Qty: 180 1RF citalopram 40 mg tablet 40 mg PO DAILY Qty: 90 1RF cetirizine 10 mg tablet 10 mg PO DAILY PRN (Reason: allergy symptoms) Qty: 90 0RF folic acid 1 mg tablet 1 mg PO DAILY Qty: 30 5RF Rx Instructions: Should start 7 days prior to treatment and continuing for 21 days after the last pemetrexed dose. cyclobenzaprine 10 mg tablet 10 mg PO BEDTIME PRN (Reason: muscle spasm) Qty: 30 2RF buspirone 10 mg tablet See Rx Instructions .ROUTE .COMPLEX Qty: 60 3RF Dose Instruction: take 1/2 to 1 tablet BY MOUTH TWICE DAILY NEEDED FOR ANXIETY Rx Instructions: take 1/2 to 1 tablet BY MOUTH TWICE DAILY NEEDED FOR ANXIETY levofloxacin 500 mg tablet 500 mg PO DAILY 14 Days Qty: 14 0RF prochlorperazine maleate 10 mg tablet 10 mg PO Q4H PRN (Reason: MILD NAUSEA) potassium chloride 10 mEq tablet extended release 20 meq PO BID famotidine 40 mg tablet 40 mg PO DAILY PRN (Reason: Acid Reflux) aspirin 81 mg tablet,delayed release (DR/EC) 81 mg PO DAILY aripiprazole 15 mg tablet 15 mg PO DAILY Advair HFA 45-21 mcg/actuation HFA aerosol inhaler 2 puff inhalation BID Incruse Ellipta 62.5 mcg/actuation blister with device 1 inh inhalation DAILY tramadol 100 mg tablet 100 mg PO BID PRN (Reason: Pain, Mild) hydralazine 50 mg tablet 50 mg PO TID PRN (Reason: HYPERTENTION) Referrals: Jean Iniguez DO [Primary Care Provider] - Coding Level of Care Code ED [facility] [employer] Hand for Scotty Lewis
[2023-08-16 09:17] LABS: Glucose Point of Care 95 mg/dL (70-110)
[2023-08-16] MEDS: dexamethasone 10 mg/mL INJ 6 MG IVP (09:27)
[2023-08-16] MEDS: tranexamic acid 1,000 MG/100 ML PREMIX 600 MG IV (09:30)
[2023-08-16] MEDS: nicardipine 20 MG/200 ML PREMIX 25 MG IV (09:40)
--- NOTE | 2023-08-16 09:40 | PC.NURSE ---
PATIENT NICARDIPINE STARTED AT 2.5 MG/HR PER PROVIDER. BP 143/103.
--- NOTE | 2023-08-16 09:44 | PM.CONSULT ---
Providers/Reason For Consult Consulting Physician/Specialty*: Fernie Corley MD neurology and epilepsy Reason for Consult*: Code stroke emergency department room #11/acute care Primary Care Provider: Jean Iniguez DO History of Present Illness History of Present Illness Leann Monte is a 47 year old female with a history of non-small cell lung cancer, left cerebral infarction with residual right-sided weakness March 2023, hypercoagulable state, chronic obstructive pulmonary disease and hypertension. The patient recently restarted chemotherapy for non-small cell lung cancer. According to the patient, she awakened this morning and had an argument with her and experienced increasing right-sided weakness. As result the patient stated she was evaluated by her oncologist today and was referred to the emergency department at [facility] to assess for recurrent stroke. NIH score = 0 (mild right sided weakness remote from previous stroke in March 2023). Noncontrast head CT was obtained and revealed 2 focal areas of intraparenchymal hemorrhage in the LEFT centrum semiovale and LEFT temporoparietal junction measuring approximately 1 to 1.3 cm described above. Differential considerations include hemorrhagic infarcts versus hemorrhagic metastasis considering history. No significant mass effect or midline shift. Chronic infarct with encephalomalacia involving the LEFT cerebral hemisphere, dowling radiata, and inferior anterior LEFT frontal lobe. Additional small area of low-attenuation involving the RIGHT parietal lobe near the vertex dorsally probably new from the prior studies may present additional area of subacute ischemia. Glucose results pending at the time of this dictation. In view of the abnormal CT scan findings, the patient was not a candidate for thrombolytics and no thrombolytics were administered. Patient will be transferred to another facility to address the metastatic brain lesions and hemorrhage. Drug allergies: Penicillins which resulted in anaphylaxis Morphine which resulted in vomiting Naproxen which resulted in vomiting Taxol which resulted in anaphylaxis Ativan which resulted in aggressiveness/agitation Eggs which resulted in nausea vomiting, stomach pain and throat swelling Flu shot which resulted in nausea and vomiting and throat swelling Nuts which resulted in vomiting and throat swelling Current medications: Albuterol sulfate 2.5 mg inhalation every 6 hours as needed Norvasc 10 mg p.o. daily Aripiprazole 15 mg p.o. to be taken as instructed Aspirin 81 mg p.o. daily Plavix 75 mg p.o. daily Buspirone 10 mg tablets to be taken as instructed Celexa 40 mg p.o. daily Cetirizine 10 mg p.o. daily as needed Flexeril 10 mg p.o. nightly Famotidine 40 mg p.o. daily Folate 1 mg p.o. daily Hydralazine 50 mg p.o. 3 times daily Hydrocodone 7.5 mg p.o. every 6 hours as needed Vistaril 25 mg p.o. 4 times daily, as needed Labetalol 100 mg p.o. twice daily Omeprazole 20 mg p.o. daily Zofran 4 mg p.o. every 4 hours as needed Potassium chloride 40 mEq p.o. daily Prednisone 5 mg p.o. daily Tramadol 100 mg p.o. twice daily, as needed Trazodone 50 mg p.o. daily Past medical history: Non-small cell lung cancer Left cerebral infarction March 2023 with residual right-sided weakness Hypertension Hypercoagulable state Generalized anxiety disorder Chronic obstructive pulmonary disease Port-A-cath Gastroesophageal reflux disease Right foot drop Neuropathic pain Asthma Habits: Patient has history of smoking but quit Family history: Remarkable for CAD (coronary artery disease) Cancer Hypertension Psychiatric illness Stroke Review of Systems General: Reports: 10 or more systems reviewed and unremarkable except in HPI and below Medications/Allergies Home Medications Medication Instructions Recorded Confirmed Last Taken Type lidocaine-prilocaine 2.5 %-2.5 % 1 g topical DIRECTED PRN 03/09/23 08/16/23 Unknown Rx topical cream Port-a-Cath #30 grams hydroxyzine HCl 25 mg tablet 25 mg PO QID PRN UNKNOWN 05/05/23 08/16/23 Unknown History prednisolone 5 mg tablet 5 mg PO DAILY 05/05/23 08/16/23 07/21/23 History trazodone 50 mg tablet 50 mg PO DAILY 05/05/23 08/16/23 07/20/23 History amlodipine 10 mg tablet 10 mg PO DAILY #90 tabs 05/20/23 08/16/23 07/21/23 Rx cetirizine 10 mg tablet 10 mg PO DAILY PRN allergy 05/20/23 08/16/23 Unknown Rx symptoms #90 tabs citalopram 40 mg tablet 40 mg PO DAILY #90 tabs 05/20/23 08/16/23 07/21/23 Rx clopidogrel 75 mg tablet (Plavix) 75 mg PO DAILY 30 days #30 tabs 05/20/23 08/16/23 07/21/23 Rx folic acid 1 mg tablet 1 mg PO DAILY #30 tabs 05/20/23 08/16/23 Unknown Rx labetalol 100 mg tablet 100 mg PO BID #180 tabs 05/20/23 08/16/23 07/21/23 Rx albuterol sulfate 90 mcg/actuation 2 puff inhalation Q6H PRN 06/15/23 08/16/23 Unknown Rx aerosol inhaler Shortness Of Breath Or Wheezing #8.5 grams omeprazole magnesium 20 mg 20 mg PO DAILY #90 tabs 06/15/23 08/16/23 07/21/23 Rx tablet,delayed release (Prilosec OTC) ondansetron HCl 4 mg tablet 4 mg PO QID PRN Nausea/vomiting 06/15/23 08/16/23 Unknown Rx #60 tabs cyclobenzaprine 10 mg tablet 10 mg PO BEDTIME PRN muscle spasm 06/23/23 08/16/23 Unknown Rx #30 tabs famotidine 40 mg tablet 40 mg PO DAILY #7 tabs 07/21/23 08/16/23 Unknown Rx hydralazine 50 mg tablet 50 mg PO TID 07/21/23 08/16/23 07/21/23 History potassium chloride 20 mEq 40 meq (2 x 20 mEq) PO DAILY #60 07/21/23 08/16/23 07/21/23 Rx tablet,extended release tabs tramadol 100 mg tablet 100 mg PO BID PRN Pain 07/21/23 08/16/23 Unknown History albuterol sulfate 2.5 mg/3 mL 2.5 mg (3 mL) inhalation Q6H PRN 07/22/23 08/16/23 Unknown Rx (0.083 %) solution for nebulization Shortness Of Breath #180 mL hydrocodone 7.5 mg-acetaminophen 1 tab PO Q6H PRN pain 30 days #120 07/22/23 08/16/23 Unknown Rx 325 mg tablet tabs buspirone 10 mg tablet See Rx Instructions .Route 07/23/23 08/16/23 Unknown Rx .COMPLEX #60 tabs potassium chloride 40 mEq/15 mL 40 meq (15 mL) PO DAILY 7 days 07/29/23 08/16/23 Unknown Rx oral liquid #473 mL levofloxacin 500 mg tablet 500 mg PO DAILY bronchitis 2 weeks 08/03/23 08/16/23 Unknown Rx #14 tabs aripiprazole 15 mg tablet See Rx Instructions .Route 08/13/23 08/16/23 Unknown Rx .COMPLEX #30 tabs aspirin 81 mg tablet,delayed See Rx Instructions .Route 08/13/23 08/16/23 Unknown Rx release .COMPLEX #30 tabs fluticasone propionate 45 See Rx Instructions .Route 08/13/23 08/16/23 Unknown Rx mcg-salmeterol 21 mcg/actuation .COMPLEX #12 grams HFA inhaler (Advair HFA) umeclidinium 62.5 mcg/actuation See Rx Instructions .Route 08/16/23 Unknown Rx blister powder for inhalation .COMPLEX #30 blisters (Incruse Ellipta) Allergies Allergy/AdvReac Type Severity Reaction Status Date / Time Penicillins Allergy Severe Anaphylaxis Verified 08/16/23 08:43 morphine Allergy Intermediate ADR-Vomitin Verified 08/16/23 08:43 g naproxen Allergy Intermediate ADR-Vomitin Verified 08/16/23 08:43 g paclitaxel [From Taxol] Allergy ALGY-Anaphy Verified 08/16/23 08:43 laxis lorazepam [From Ativan] AdvReac Severe Becomes Verified 08/16/23 08:43 aggressive. EGGS AdvReac Severe N & V, Uncoded 08/16/23 08:43 Stomach pain, Throat swells shut flu shot AdvReac Severe N & V, Uncoded 08/16/23 08:43 Stomach pain, Throat swells shut nuts AdvReac Severe Vomiting & Uncoded 08/16/23 08:43 throat swells Current Medications Generic Name Dose Route Start Last Admin Trade Name Freq PRN Reason Stop Dose Admin Nicardipine/Sodium Chloride 20 mg in 200 mls @ 0 mls/hr 08/16/23 09:30 08/16/23 09:40 Cardene IV 2.5 mg/hr .Q0M JAY JAY 25 mls/hr Administration Protocol Per Protocol PFSH Acute PFSH: Medical History Acute CVA (cerebrovascular accident) Non-small cell lung cancer COPD (chronic obstructive pulmonary disease) Hypertensive crisis Decreased cortisol level Occlusion of left internal carotid artery Exertional chest pain Blurry vision, bilateral Insomnia Hyponatremia Major depressive disorder, recurrent, moderate Cannabis use disorder, mild, in early remission, abuse Menopause syndrome Vertigo Essential hypertension Oral abscess Psychiatric care Asthma 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 Ko History of removal of ovarian cyst Hx of lithotripsy Hx of hernia repair Hx of cholecystectomy Family History Other CAD (coronary artery disease) Cancer Hypertension Psychiatric illness Stroke Denies family history of Diabetes Chronic kidney disease (CKD) Social History Smoking and tobacco/nicotine status: former use of tobacco/nicotine Quit status (tobacco/nicotine): has quit using Year quit tobacco: 2022 Former quit date comment: still use nicotine patches Second hand smoke exposure: Yes Alcohol intake: never Caregiver/support person: Yes Lives independently: Yes Household members: significant other Housing: House Current occupational status: employed Female Reproductive History: Para: 0 Spontaneous abortions: Yes (all 6 pregnancies) Vitals/I&O/Wt Last Vital Signs Pulse 89 08/16/23 09:18 Resp 18 08/16/23 09:18 BP 145/108 08/16/23 09:18 Pulse Ox 100 08/16/23 09:18 O2 Del Method Room Air 08/16/23 08:57 08/15/23 08/16/23 08/16/23 22:59 06:59 14:59 Intake Total 100 / 100 Balance 100 / 100 Weight last 48 hrs Weight 182 lb Physical Exam Narrative: Blood pressure elevated NIH score = 0 The patient is alert and oriented x 3. Speech fluent. Head normocephalic. Neck supple. Cranial nerves II through XII intact pupils 4 mm round reactive to light and accommodation. Extraocular movements intact. Motor examination revealed the remote mild weakness in the right upper and right lower extremity. The patient has reported chronic history of right foot drop. Patient was able to keep her arm and leg elevated against resistance. There was a drift in the right upper extremity. 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 Deep tendon reflex revealed plantar responses bilaterally. There was no clonus. Sensory examination was intact to touch. There was no extinction on double sensory stimulation. Throat clear. Lungs clear. Heart regular rhythm and rate. Extremities were negative for cyanosis. Data 08/16/23 09:33 08/16/23 09:33 A&P Assessment and plan (1) Metastatic cancer to brain: Impression: 1. 2 focal areas of intraparenchymal hemorrhage in the LEFT centrum semiovale and LEFT temporoparietal junction measuring approximately 1 to 1.3 cm described above. Differential considerations include hemorrhagic infarcts versus hemorrhagic metastasis considering history. Patient was not a candidate for thrombolytics and no thrombolytics were administered Plan: 1. Agree with transfer to another facility with the ability to address the above issues. (2) Brain bleed: Consult Attestations Medical Necessity Statement: The patient was evaluated by neurology for code stroke emergency department room #11/acute care Coding Level of Care Code 64919 Diagnoses Metastatic cancer to brain C79.31 Brain bleed I61.9
[2023-08-16 09:48] LABS: Basophils % 0.2 %; Eosinophils # 0.4 10^3/uL (0.0-0.8); Eosinophils % 7.3 %; Hematocrit 32.1 % (36-47); Lymphocytes # 1.1 10^3/uL (0.8-4.8); Lymphocytes % 18.9 %; Mean Corpuscular HGB Conc 31.5 g/dL (30-55); Mean Corpuscular Hemoglobin 25.9 pg (27-33); Mean Corpuscular Volume 82.3 fl (85-98); Mean Platelet Volume 8.4 fL (7.4-10.4); Monocytes # 0.3 10^3/uL (0.2-0.9); Monocytes % 5.3 %; Neutrophils # 3.82 10^3/uL (1.8-7.7); Neutrophils % 67.9 %; Nucleated Red Blood Cells % 0 %; Platelet Count 336 10^3/cmm (157-399); Red Cell Distribution Width 17.3 % (12.1-15.1); White Blood Count 5.62 10^3/uL (3.29-11.43)
[2023-08-16 09:50] LABS: Glucose Point of Care 97 mg/dL (70-110)
[2023-08-16 10:11] LABS: Alanine Aminotransferase 30 U/L (0-33); Alkaline Phosphatase 137 U/L (35-105); Aspartate Amino Transferase 22 U/L (0-32); Blood Urea Nitrogen 8 mg/dL (6-20); Calcium 9.2 mg/dL (8.5-10.5); Carbon Dioxide 25 mmol/L (22-29); Chloride 106 mmol/L (98-107); Creatinine Clr Calc Pharmacy 117.9558; Globulin 3.2 g/dL (1.3-4.6); Glomerular Filtration Rate 107.2 mL/min (90-130); Glucose 90 mg/dL (65-115); Osmolality Calculated 292 mOsm/kg (285-295); Sodium 142 mmol/L (136-145); Total Bilirubin 0.4 mg/dL (0.15-1.2); Total Protein 7.2 g/dL (6.6-8.7)
[2023-08-16 10:15] LABS: INR 0.95 (0.8-1.2)
[2023-08-16 10:16] LABS: Partial Thromboplastin Time 29.5 SECONDS (23.9-36.7)
[2023-08-16 10:23] LABS: Add Urine Microscopic? NO; Charge for UA Resulting for Rev
[2023-08-16 10:38] LABS: Bilirubin Urine Neg (Negative); Blood Urine Neg (Negative); Glucose Urine UA Norm (Normal); Ketones Urine Negative (Negative); Leukocyte Esterase Urine Negative (Negative); Nitrate Urine Negative (Negative); Protein Urine Neg (Negative); Specific Gravity, Urine 1.005 (1.005-1.030); Urine Appearance Clear (CLEAR); Urine Color Yellow (Yellow); Urobilinogen Urine Norm (Negative); pH Urine 7 (5-7)
[2023-08-16 10:58] LABS: Amphetamines Screen Urine Negative (Negative); Barbiturates Screen Urine Negative (Negative); Benzodiazepines Screen Urine Positive (Negative); Cocaine Screen Urine Negative (Negative); Opiate Screen Urine Positive (Negative); PCP Screen Urine Negative (Negative); THC Screen Urine Positive (Negative)
--- NOTE | 2023-08-16 12:03 | ECG_ITS ---
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 Measurements Intervals [place] Rate: 93 P: 40 DE: 117 QRS: 18 QRSD: 94 T: 93 QT: 379 QTc: 474 Interpretive Statements SINUS RHYTHM WITH SHORT DE INTERVAL NONSPECIFIC T-WAVE ABNORMALITY Compared to ECG 08/16/2023 09:24:43 Short DE interval now present T-wave abnormality still present Electronically Signed On 08-16-2023 19:02:51 CDT by Mandy Hanson M.D. [id number]
[2023-08-16] MEDS: ipratropium-albuterol 3 mL Neb INHALATION (12:20)
== END 2023-08-16 14:51 ==
PROVIDERS: Emergency Provider Family Medicine; PCP Family Medicine
DX: I62.9 Nontraumatic intracranial hemorrhage, unspecified (principal); C34.90 Malignant neoplasm of unspecified part of unspecified bronchus or lung; C79.31 Secondary malignant neoplasm of brain; Z79.02 Long term (current) use of antithrombotics/antiplatelets; Z79.82 Long term (current) use of aspirin; Z87.891 Personal history of nicotine dependence; Z86.73 Personal history of transient ischemic attack (TIA), and cerebral infarction without residual deficits; J44.9 Chronic obstructive pulmonary disease, unspecified; I10 Essential (primary) hypertension
CPT/HCPCS: 36416; 70450; 71045; 80053; 80306; 81003; 82962; 85025; 85610; 85730; 93005; 94640; 96374; 96375; 99285; J1100

== ENCOUNTER 2023-09-01 08:39 | Oncology outpatient (recurring) (ONCR) | payer OTHER, SELFPAY ==
[2023-08-09 08:05] LABS: Basophils % 0.3 %; Eosinophils # 0.2 10^3/uL (0.0-0.8); Eosinophils % 3.3 %; Hematocrit 31.9 % (36-47); Lymphocytes # 1.5 10^3/uL (0.8-4.8); Lymphocytes % 20.2 %; Mean Corpuscular HGB Conc 30.7 g/dL (30-55); Mean Corpuscular Hemoglobin 25.1 pg (27-33); Mean Corpuscular Volume 81.6 fl (85-98); Mean Platelet Volume 8.1 fL (7.4-10.4); Monocytes # 0.4 10^3/uL (0.2-0.9); Neutrophils # 5.16 10^3/uL (1.8-7.7); Neutrophils % 69.9 %; Nucleated Red Blood Cells % 0 %; Platelet Count 307 10^3/cmm (157-399); Red Blood Count 3.91 10^6/uL (3.85-5.65); Red Cell Distribution Width 17.1 % (12.1-15.1); White Blood Count 7.37 10^3/uL (3.29-11.43)
[2023-08-09 08:22] LABS: Alanine Aminotransferase 12 U/L (0-33); Albumin Level 3.7 g/dL (3.5-5.2); Alkaline Phosphatase 97 U/L (35-105); Anion Gap 14.9 (5-19); Aspartate Amino Transferase 9 U/L (0-32); Blood Urea Nitrogen 8 mg/dL (6-20); Carbon Dioxide 25 mmol/L (22-29); Chloride 105 mmol/L (98-107); Globulin 3.2 g/dL (1.3-4.6); Glomerular Filtration Rate 89.7 mL/min (90-130); Glucose 100 mg/dL (65-115); Osmolality Calculated 292 mOsm/kg (285-295); Sodium 142 mmol/L (136-145); Total Bilirubin 0.2 mg/dL (0.15-1.2); Total Protein 6.9 g/dL (6.6-8.7)
[2023-08-09 08:23] LABS: Potassium 2.9 mmol/L (3.5-5.1)
[2023-08-09] MEDS: diazePAM 5 mg Tablet PO (09:49)
[2023-08-09] MEDS: sodium chloride 0.9% 250 ML 75 ML IV (10:12)
[2023-08-09] MEDS: ondansetron 2 mg/ML SDV 2 mL 8 MG IVP (10:12)
[2023-08-09] MEDS: paclitaxel protein-bound 150 MG in empty flexible container 1 EACH 60 MG IV (11:04)
[2023-08-09] MEDS: CARBOplatin 300 MG in sodium chloride 0.9% 500 ML 1060 MG IV (11:59)
[2023-08-09] MEDS: sodium chlor 0.9% + KCl 40 mEq 40 MEQ/1,000 ML BAG 250 MEQ IV (13:15)
[2023-08-09 15:35] VITALS: BP 161/80; PULSE 97; TEMP 36.9; O2SAT 96
--- NOTE | 2023-08-10 09:15 | ONCRAD TMN_ITS ---
Radiation Oncology Weekly Treatment Management Patient: Leann Monte MR#: [id number] : 1975 Attending Physician: Dr. Cecilia Lopez Date of Service: 08/10/2023 Fractions: 9 out of 30 Referring Physician(s) : Diagnosis: C34.12 - Malignant neoplasm of upper lobe, left bronchus or lung, Diagnosed 06/03/2023 (Active) Radiotherapy to date: Course: JHONNY nodes, Treatment Site: JHONNY 60Gy, Ref. ID: [id number], Energy: 6X, Dose/Fx (cGy): 200, #Fx: , Dose Correction (cGy): 0, Total Dose Delivered (cGy): 1,800, Start Date: 07/21/2023, Elapsed Days: 20 Reason for visit: The patient is being seen today as part of their regularly scheduled weekly on treatment visits to assess for acute toxicities from radiotherapy. Review of Systems: Patient was actually able to get chemotherapy yesterday she did not have a reaction. She is getting a new prosthetic boot on . She is in good spirits today. Vital Signs: Performed on 08/10/2023 8:50 AM BMI - 29.725 kg/m2 (high), Height - 63 in, Weight - 167.8 lbs, Temperature - 97.3 f, Pulse - 93 /min, Respiration - 18 /min, O2 Sat - 93 % (low), Pain - 5, Fatigue - 8 and BP - 161/ 97 mm(hg)(high). Physical Exam: On exam she appears to be feeling much better. She was able to use my walker and walk a few feet. Imaging: Radiation therapy imaging related to accurate target localization (i.e. KV, MV and CBCT) was reviewed. Appropriate changes, if any, were made to ensure treatment accuracy. Plan: Will continue with her treatments as planned. She will continue with her chemo as well. Signed by: Dr. Cecilia Lopez 08/10/2023 9:13:44 AM
[2023-08-16 07:59] LABS: Basophils % 0.2 %; Eosinophils # 0.3 10^3/uL (0.0-0.8); Eosinophils % 6.1 %; Hematocrit 30.9 % (36-47); Lymphocytes # 0.9 10^3/uL (0.8-4.8); Lymphocytes % 16.8 %; Mean Corpuscular HGB Conc 31.1 g/dL (30-55); Mean Corpuscular Hemoglobin 25.3 pg (27-33); Mean Corpuscular Volume 81.5 fl (85-98); Mean Platelet Volume 8.2 fL (7.4-10.4); Monocytes # 0.3 10^3/uL (0.2-0.9); Monocytes % 4.6 %; Neutrophils # 4.03 10^3/uL (1.8-7.7); Neutrophils % 71.8 %; Nucleated Red Blood Cells % 0 %; Platelet Count 312 10^3/cmm (157-399); Red Blood Count 3.79 10^6/uL (3.85-5.65); Red Cell Distribution Width 17.2 % (12.1-15.1); White Blood Count 5.61 10^3/uL (3.29-11.43)
[2023-08-16 08:15] LABS: Alanine Aminotransferase 27 U/L (0-33); Albumin Level 3.7 g/dL (3.5-5.2); Alkaline Phosphatase 116 U/L (35-105); Anion Gap 15.9 (5-19); Aspartate Amino Transferase 18 U/L (0-32); Blood Urea Nitrogen 7 mg/dL (6-20); Carbon Dioxide 25 mmol/L (22-29); Chloride 107 mmol/L (98-107); Globulin 3.1 g/dL (1.3-4.6); Glomerular Filtration Rate 89.7 mL/min (90-130); Glucose 102 mg/dL (65-115); Osmolality Calculated 296 mOsm/kg (285-295); Potassium 3.9 mmol/L (3.5-5.1); Sodium 144 mmol/L (136-145); Total Bilirubin 0.3 mg/dL (0.15-1.2); Total Protein 6.8 g/dL (6.6-8.7)
--- NOTE | 2023-08-23 09:56 | ONCRAD TMN_ITS ---
Radiation Oncology Weekly Treatment Management Patient: Lavell Noriega> MR#: [id number] : 1975> Attending Physician: Dr. Cecilia Lopez Date of Service: 08/23/2023 Fractions: 11 out of 30 Referring Physician(s) : Diagnosis: C34.12 - Malignant neoplasm of upper lobe, left bronchus or lung, Diagnosed 06/03/2023 (Active) Radiotherapy to date: Course: JHONNY nodes, Treatment Site: JHONNY 60Gy, Ref. ID: [id number], Energy: 6X, Dose/Fx (cGy): 200, #Fx: , Dose Correction (cGy): 0, Total Dose Delivered (cGy): 2,200, Start Date: 07/21/2023, End Date: 08/16/2023, Elapsed Days: 26 Reason for visit: The patient is being seen today as part of their regularly scheduled weekly on treatment visits to assess for acute toxicities from radiotherapy. Review of Systems: Patient had a change in her neurological status last week and had additional scans. She was found to have brain metastasis with hemorrhage into the metastasis. She spent several days in [place]. Her neurological status has worsened. Vital Signs: Performed on 08/23/2023 8:58 AM BMI - 29.583 kg/m2 (high), Height - 63 in, Weight - 167 lbs, Temperature - 97.3 f, Pulse - 73 /min, Respiration - 18 /min, O2 Sat - 99 %, Pain - 6, Fatigue - 5 and BP - 155/ 102 mm(hg)(high). Physical Exam: On exam she is as pleasant as always. She is focused and asks appropriate questions. Imaging: Radiation therapy imaging related to accurate target localization (i.e. KV, MV and CBCT) was reviewed. Appropriate changes, if any, were made to ensure treatment accuracy. Plan: Her and her asked today about the estimate on her longevity. We talked about with the current situation typically 6 to 9 months would be expected. I reminded her that some patients go in less than that time and others live longer. We discussed continuing treatment whether she wished to do anything. We also reviewed hospice and will put through a referral for hospice so that they can begin that process to talk with the team. She is continuing to have increasing pain and I believe she has gotten fairly resistant to her [place]. I am switching her to oxycodone which is what she had in [place] and she said that worked substantially better. She will otherwise call if she would like to proceed with any additional therapy. Signed by: Dr. Cecilia Lopez 08/23/2023 9:55:20 AM
--- NOTE | 2023-09-01 09:01 | ONCRAD TMN_ITS ---
Radiation Oncology Weekly Treatment Management Patient: Lavell Noriega> MR#: [id number] : 1975> Attending Physician: Dr. Cecilia Lopez Date of Service: 09/01/2023 Fractions: 11 out of 30 Referring Physician(s) : Diagnosis: C34.12 - Malignant neoplasm of upper lobe, left bronchus or lung, Diagnosed 06/03/2023 (Active) Radiotherapy to date: Course: JHONNY nodes, Treatment Site: JHONNY 60Gy, Ref. ID: [id number], Energy: 6X, Dose/Fx (cGy): 200, #Fx: , Dose Correction (cGy): 0, Total Dose Delivered (cGy): 2,200, Start Date: 07/21/2023, Elapsed Days: Reason for visit: The patient is being seen today as part of their regularly scheduled weekly on treatment visits to assess for acute toxicities from radiotherapy. Review of Systems: Patient has had good relief with the pain medicine. She is here today to discuss whether she wants to continue treatment or go on hospice Vital Signs: Performed on 09/01/2023 8:49 AM BMI - 31.886 kg/m2 (high), Height - 63 in, Weight - 180 lbs, Temperature - 97.4 f, Pulse - 85 /min, Respiration - 18 /min, O2 Sat - 99 %, Pain - 0, Fatigue - 8 and BP - 152/ 81 mm(hg)(high/). Physical Exam: No changes on exam Imaging: Radiation therapy imaging related to accurate target localization (i.e. KV, MV and CBCT) was reviewed. Appropriate changes, if any, were made to ensure treatment accuracy. Plan: We talked at length about the pros and cons of staying on treatment. We talked about the different median survival's. We also talked about how generally when lung cancer patients go on hospice they actually have a better quality of life and live longer than if they are going through active treatment. At this point she is elected to proceed with hospice care only. I encouraged her to call if she should need any additional assistance. Signed by: Dr. Cecilia Lopez 09/01/2023 8:59:48 AM
--- NOTE | 2023-09-01 10:01 | N.ONRD TS_ITS ---
Radiation Oncology Treatment Summary Patient: Lavell>Consuelo MR#: [id number] : 1975> Age: 47> Sex: Female Dictated by: Dr. Cecilia Lopez Date of Service: 09/01/2023 Referring Physician(s) : Diagnosis: C34.12 - Malignant neoplasm of upper lobe, left bronchus or lung, Diagnosed 06/03/2023 (Active) Radiotherapy to Date: Course: JHONNY nodes, Treatment Site: JHONNY 60Gy, Ref. ID: [id number], Energy: 6X, Dose/Fx (cGy): 200, #Fx: , Dose Correction (cGy): 0, Total Dose Delivered (cGy): 2,200, Start Date: 07/21/2023, End Date: 08/16/2023, Elapsed Days: 26 Clinical Summary: Patient had a continued decline over a month during the course of her treatment. She was found to have brain metastasis as well. She subsequently elected to proceed with hospice care. Plan: End of treatment today. Signed by: Dr. Cecilia Lopez>09/01/2023 10:00:08 AM <<Signature on File>>
== END 2023-09-05 23:59 | disposition home or self-care (01) ==
PROVIDERS: Internal Medicine Medical Oncology; Nurse Practitioner Family; PCP Family Medicine; Visit Provider Radiology Radiation Oncology
DX: Z53.9 Procedure and treatment not carried out, unspecified reason (principal)
CPT/HCPCS: 77336; 77386; 80053; 83735; 85025; 96367; 96375; 96413; 96417; 99024; J1100; J2405; J7040; J7050; J9045; J9264